=== PATIENT | female | born 1955 | race Caucasian/White ===

== ENCOUNTER 2019-07-02 10:03 | Outpatient (CLI) | payer OTHER, MEDICARE, SELFPAY ==
--- NOTE | ~2019-07-02 | MM_ITS ---
EXAMINATION: MM screening [facility] BI w nikki HISTORY: Screening mammogram TECHNIQUE: Craniocaudal and mediolateral oblique 3-D tomosynthesis images were obtained and synthetic 2-D images were generated. CAD analysis was submitted and interpreted. COMPARISON: 02/21/2012 BREAST PARENCHYMAL COMPOSITION: There are scattered areas of fibroglandular density. FINDINGS: There is no evidence of suspicious mass, calcification, or architectural distortion to sugg est malignancy in either breast. There has been no suspicious interval change. IMPRESSION: 1. No mammographic evidence of malignancy. 2. Recommend routine screening mammography in one year. BI-RADS Category 1: Negative Reviewed, dictated and finalized at location A.
[2019-07-02 10:37] LABS: Creatinine Urine 200.07 mg/dL (40-278)
[2019-07-02 10:38] LABS: MALB Creatinine Ratio 14.7 mg/g (0-30); Microalbumin Urine Random 29.6 mg/L
[2019-07-02 10:39] LABS: Hemoglobin A1C 5.5 % (<5.7)
[2019-07-02 10:50] LABS: Alanine Aminotransferase 20 U/L (14-59); Alkaline Phosphatase 173 U/L (46-116); Anion Gap 16.4 mmol/L (7-16); Aspartate Amino Transferase 19 U/L (15-37); Bilirubin,Total 0.5 mg/dL (0.00-1.00); Blood Urea Nitrogen 11 mg/dL (7-18); Calcium 9.5 mg/dL (8.5-10.1); Carbon Dioxide 28 mmol/L (21-32); Chloride 103 mmol/L (98-108); Cholesterol 209 mg/dL (0-200); Estimated Glomerular Filt Rate > 60; Glucose 123 mg/dL (70-99); HDL Direct 56 mg/dL (40-60); LDL Cholesterol Calculated 121 mg/dL (<130); Osmolality Calculated 296 mOsm/kg (285-295); Potassium 4.4 mmol/L (3.5-5.1); Sodium 143 mmol/L (136-145); Total Protein 7.3 g/dL (6.4-8.2); Triglycerides 161 mg/dL (0-150)
[2019-07-04 18:13] LABS: H pylori, Urea Breath NOT DETECTED (NOT DETECTED)
== END 2019-07-02 10:04 | disposition home or self-care (01) ==
PROVIDERS: PCP Family Medicine; Visit Provider Family Medicine
DX: Z12.31 Encounter for screening mammogram for malignant neoplasm of breast (principal); R10.12 Left upper quadrant pain; E11.9 Type 2 diabetes mellitus without complications
CPT/HCPCS: 36415; 77063; 77067; 80053; 80061; 82043; 83013; 83036

== ENCOUNTER 2020-01-01 12:07 | Outpatient (CLI) | payer MEDICARE, SELFPAY ==
--- NOTE | ~2020-01-01 | XR_ITS ---
EXAMINATION: XR thoracic spine 3V EXAM DATE: 01/01/2020 12:36 INDICATION: Back pain. TECHNIQUE: Frontal and lateral projections of the thoracic spine as well as lateral swimmers projecti on of the upper thoracic spine for interpretation. There is no prior study for comparison. FINDINGS: Right lower lobe granuloma. There are 2 thoracic spine stimulator leads, one with tip at the T8-9 level and the other with the tip at the T6 level. Cholecystectomy clips. There is minimal lo wer thoracic levocurvature. There is mild to moderate disc disease at T10-11, otherwise mild lower th oracic disc disease. The vertebral bodies are aligned in the AP dimension. Vertebral body heights are maintained. No endplate erosive change. Paraspinal soft tissue is unremarkable. IMPRESSION: 1. Spine stimulator leads at T6, T8-9 levels. 2. Moderate T10-11 disc disease. 3. Otherwise mild thoracic spondylosis. Reviewed, dictated and finalized at location A.
== END 2020-01-01 12:08 | disposition home or self-care (01) ==
PROVIDERS: PCP Family Medicine
DX: M54.6 Pain in thoracic spine (principal)
CPT/HCPCS: 72072

== ENCOUNTER 2021-01-19 13:58 | Outpatient (CLI) | payer OTHER, SELFPAY ==
[2021-01-19 14:15] LABS: Hematocrit 44.4 % (35.0-42.0); Hemoglobin 14.7 g/dL (11.7-13.8); Mean Corpuscular HGB Conc 33.1 g/dL (32.0-36.0); Mean Corpuscular Hemoglobin 28.1 pg (27.0-31.0); Mean Corpuscular Volume 84.9 fL (78.0-102.0); Mean Platelet Volume 10.2 fl (9.2-11.8); Platelet Count Result 305 K/mm3 (150-420); Red Blood Count 5.23 M/mm3 (4.20-5.40); Red Cell Distribution Width 12.3 % (11.6-14.4); White Blood Count 8.3 K/mm3 (4.8-10.8)
[2021-01-19 14:25] LABS: Hemoglobin A1C 5.1 % (<5.7)
[2021-01-19 15:08] LABS: Alanine Aminotransferase 28 U/L (14-59); Albumin Level 3.7 g/dL (3.4-5.0); Alkaline Phosphatase 129 U/L (46-116); Anion Gap 8 mmol/L (8-16); Aspartate Amino Transferase 24 U/L (15-37); Bilirubin,Total 0.4 mg/dL (0.00-1.00); Blood Urea Nitrogen 14 mg/dL (7-18); Calcium 9.5 mg/dL (8.5-10.1); Carbon Dioxide 30 mmol/L (21-32); Chloride 104 mmol/L (98-108); Cholesterol 129 mg/dL (0-200); Estimated Glomerular Filt Rate > 60; Glucose 76 mg/dL (70-99); HDL Direct 53 mg/dL (40-60); LDL Cholesterol Calculated 59 mg/dL (<130); Osmolality Calculated 293 mOsm/kg (285-295); Potassium 4.9 mmol/L (3.5-5.1); Sodium 142 mmol/L (136-145); Total Protein 6.5 g/dL (6.4-8.2); Triglycerides 85 mg/dL (0-150)
[2021-01-19 16:12] LABS: Free T4 Free Thyroxine Reflex < 0.10 ng/dL (0.76-1.46); Thyroid Stimulating Hormone Reflex < 0.01 u/IU/mL (0.36-3.74)
== END 2021-01-19 13:59 | disposition home or self-care (01) ==
LOC: CHSLAB 14:01
PROVIDERS: PCP Family Medicine; Visit Provider Family Medicine
DX: I10 Essential (primary) hypertension (principal); E11.9 Type 2 diabetes mellitus without complications; E03.9 Hypothyroidism, unspecified
CPT/HCPCS: 36415; 80053; 80061; 83036; 84439; 84443; 85027

== ENCOUNTER 2021-01-24 14:58 | Outpatient (CLI) | payer OTHER, MEDICARE, SELFPAY ==
--- NOTE | ~2021-01-24 | MM_ITS ---
EXAMINATION: MM screening [facility] BI w nikki HISTORY: Screening TECHNIQUE: Craniocaudal and mediolateral oblique 3-D tomosynthesis images were obtained and synthetic 2-D images were generated. CAD analysis was submitted and interpreted. COMPARISON: Comparison to multiple prior studies sequentially, with oldest reviewed study dated 10/2011. BREAST PARENCHYMAL COMPOSITION: There are scattered areas of fibroglandular density. FINDINGS: There is no evidence of suspicious mass, calcification, or architectural distortion to sugg est malignancy in either breast. There has been no suspicious interval change. IMPRESSION: 1. No mammographic evidence of malignancy. 2. Recommend routine screening mammography in one year. BI-RADS Category 1: Negative Reviewed, dictated and finalized at location A.
== END 2021-01-24 14:59 | disposition home or self-care (01) ==
LOC: CHSIMG 14:59
PROVIDERS: PCP Family Medicine; Visit Provider Family Medicine
DX: Z12.31 Encounter for screening mammogram for malignant neoplasm of breast (principal)
CPT/HCPCS: 77063; 77067

== ENCOUNTER 2021-02-07 14:29 | Outpatient (CLI) | payer OTHER, SELFPAY ==
[2021-02-07 16:21] LABS: Thyroid Stimulating Hormone Reflex < 0.01 u/IU/mL (0.36-3.74)
[2021-02-07 16:51] LABS: Free T4 Free Thyroxine Reflex 0.09 ng/dL (0.76-1.46)
[2021-02-15 20:50] LABS: T4 Thyroxine <0.7 mcg/dL (5.1-11.9)
== END 2021-02-07 14:30 | disposition home or self-care (01) ==
LOC: CHSLAB 14:32
PROVIDERS: PCP Family Medicine; Visit Provider Family Medicine
DX: E03.9 Hypothyroidism, unspecified (principal); E11.9 Type 2 diabetes mellitus without complications
CPT/HCPCS: 36415; 84436; 84439; 84443; 84480

== ENCOUNTER 2021-02-12 07:13 | Outpatient (CLI) | payer OTHER, MEDICARE, SELFPAY | END 2021-02-12 07:14 | disposition home or self-care (01) | LOC: CHSIMG 07:14 | PROVIDERS: PCP Family Medicine; Visit Provider Family Medicine | DX: G20 Parkinson's disease (principal); Z53.8 Procedure and treatment not carried out for other reasons | CPT/HCPCS: 99199 ==

== ENCOUNTER 2021-03-30 12:28 | Outpatient (CLI) | payer OTHER, SELFPAY ==
--- NOTE | 2021-03-30 12:31 | ECG_ITS ---
Measurements Intervals [place] Rate: 100 P: 79 LA: 134 QRS: 72 QRSD: 82 T: 51 QT: 311 QTc: 402 Interpretive Statements SINUS TACHYCARDIA VENTRICULAR PREMATURE COMPLEX BASELINE WANDER- II, III, AVR, AVL, AVF, V1-V4 BORDERLINE ECG Electronically Signed On 03-30-2021 13:23:34 [employer] by Vishnu Draper D.O.
[2021-03-30 13:02] LABS: Alanine Aminotransferase 40 U/L (14-59); Albumin Level 3.8 g/dL (3.4-5.0); Alkaline Phosphatase 142 U/L (46-116); Anion Gap 13 mmol/L (8-16); Aspartate Amino Transferase 30 U/L (15-37); Bilirubin,Total 0.8 mg/dL (0.00-1.00); Blood Urea Nitrogen 7 mg/dL (7-18); Calcium 10.2 mg/dL (8.5-10.1); Carbon Dioxide 27 mmol/L (21-32); Chloride 106 mmol/L (98-108); Estimated Glomerular Filt Rate 53; Glucose 133 mg/dL (70-99); Osmolality Calculated 302 mOsm/kg (285-295); Potassium 3.9 mmol/L (3.5-5.1); Sodium 146 mmol/L (136-145); Total Protein 7.3 g/dL (6.4-8.2); Troponin I 15.7 ng/L (0.00-60.4)
== END 2021-03-30 12:29 | disposition home or self-care (01) ==
LOC: CHSLAB 12:31
PROVIDERS: PCP Family Medicine; Visit Provider Family Medicine
DX: I10 Essential (primary) hypertension (principal)
CPT/HCPCS: 36415; 80053; 84484; 93005

== ENCOUNTER 2021-05-30 15:06 | Outpatient (CLI) | payer OTHER, SELFPAY ==
[2021-05-30 16:53] LABS: Thyroid Stimulating Hormone Reflex < 0.01 u/IU/mL (0.36-3.74)
[2021-05-30 16:57] LABS: Free T4 Free Thyroxine Reflex 0.11 ng/dL (0.76-1.46)
== END 2021-05-30 15:07 | disposition home or self-care (01) ==
LOC: CHSLAB 15:08
PROVIDERS: PCP Family Medicine; Visit Provider Family Medicine
DX: E11.9 Type 2 diabetes mellitus without complications (principal); E03.9 Hypothyroidism, unspecified
CPT/HCPCS: 36415; 84439; 84443

== ENCOUNTER 2021-09-19 12:43 | Outpatient (CLI) | payer OTHER, MEDICAID, SELFPAY ==
--- NOTE | 2021-09-19 13:04 | ECG_ITS ---
Measurements Intervals [place] Rate: 71 P: 61 SC: 153 QRS: 46 QRSD: 85 T: 52 QT: 377 QTc: 412 Interpretive Statements SINUS RHYTHM Electronically Signed On 09-20-2021 11:09:13 CDT by Kj Beltrán M.D.
[2021-09-19 13:05] LABS: Hematocrit 41.2 % (35.0-42.0); Hemoglobin 13.6 g/dL (11.7-13.8); Mean Corpuscular Hemoglobin 27.8 pg (27.0-31.0); Mean Corpuscular Volume 84.1 fL (78.0-102.0); Mean Platelet Volume 10.2 fl (9.2-11.8); Platelet Count Result 268 K/mm3 (150-420); Red Cell Distribution Width 13.1 % (11.6-14.4); White Blood Count 6.8 K/mm3 (4.8-10.8)
[2021-09-19 13:22] LABS: Hemoglobin A1C 5.5 % (<5.7)
[2021-09-19 13:35] LABS: Alanine Aminotransferase 23 U/L (14-59); Albumin Level 3.4 g/dL (3.4-5.0); Alkaline Phosphatase 169 U/L (46-116); Anion Gap 9 mmol/L (8-16); Aspartate Amino Transferase 17 U/L (15-37); Bilirubin,Total 0.8 mg/dL (0.00-1.00); Blood Urea Nitrogen 10 mg/dL (7-18); Calcium 9.6 mg/dL (8.5-10.1); Carbon Dioxide 23 mmol/L (21-32); Chloride 106 mmol/L (98-108); Estimated Glomerular Filt Rate > 60; Glucose 103 mg/dL (70-99); Osmolality Calculated 285 mOsm/kg (285-295); Potassium 3.9 mmol/L (3.5-5.1); Sodium 138 mmol/L (136-145); Total Protein 6.9 g/dL (6.4-8.2)
[2021-09-19 13:37] LABS: Thyroid Stimulating Hormone Reflex < 0.01 u/IU/mL (0.36-3.74)
== END 2021-09-19 12:44 | disposition home or self-care (01) ==
LOC: CHSLAB 12:49
PROVIDERS: PCP Family Medicine; Visit Provider Family Medicine
DX: J44.9 Chronic obstructive pulmonary disease, unspecified (principal); E11.9 Type 2 diabetes mellitus without complications; E03.9 Hypothyroidism, unspecified
CPT/HCPCS: 36415; 80053; 83036; 84439; 84443; 85027; 93005

== ENCOUNTER 2021-10-24 11:21 | Outpatient (CLI) | payer OTHER, MEDICAID, SELFPAY ==
[2021-10-24 11:39] LABS: Hematocrit 42.2 % (35.0-42.0); Mean Corpuscular HGB Conc 33.2 g/dL (32.0-36.0); Mean Corpuscular Hemoglobin 27.7 pg (27.0-31.0); Mean Corpuscular Volume 83.6 fL (78.0-102.0); Mean Platelet Volume 11.7 fl (9.2-11.8); Platelet Count Result 152 K/mm3 (150-420); Red Blood Count 5.05 M/mm3 (4.20-5.40); Red Cell Distribution Width 13.1 % (11.6-14.4); White Blood Count 7.7 K/mm3 (4.8-10.8)
[2021-10-24 12:03] LABS: Alanine Aminotransferase 34 U/L (14-59); Albumin Level 3.4 g/dL (3.4-5.0); Alkaline Phosphatase 159 U/L (46-116); Anion Gap 8 mmol/L (8-16); Aspartate Amino Transferase 25 U/L (15-37); Bilirubin,Total 0.5 mg/dL (0.00-1.00); Blood Urea Nitrogen 10 mg/dL (7-18); Calcium 9.2 mg/dL (8.5-10.1); Carbon Dioxide 26 mmol/L (21-32); Chloride 106 mmol/L (98-108); Estimated Glomerular Filt Rate > 60; Glucose 97 mg/dL (70-99); Osmolality Calculated 289 mOsm/kg (285-295); Sodium 140 mmol/L (136-145); Total Protein 6.8 g/dL (6.4-8.2)
[2021-10-24 13:10] LABS: Free T4 Free Thyroxine Reflex 1.97 ng/dL (0.76-1.46); Thyroid Stimulating Hormone Reflex < 0.01 u/IU/mL (0.36-3.74)
[2021-10-26 15:56] LABS: T4 Thyroxine 14.9 mcg/dL (5.1-11.9)
== END 2021-10-24 11:22 | disposition home or self-care (01) ==
LOC: CHSLAB 11:24
PROVIDERS: PCP Family Medicine; Visit Provider Family Medicine
DX: E03.9 Hypothyroidism, unspecified (principal); I10 Essential (primary) hypertension; E11.9 Type 2 diabetes mellitus without complications
CPT/HCPCS: 36415; 80053; 84436; 84439; 84443; 85027

== ENCOUNTER 2021-10-30 19:03 | Emergency (ER) | payer MEDICARE, MEDICAID, SELFPAY ==
[2021-10-30 19:23] VITALS: BP 142/72; PULSE 85; RESP 18; TEMP 36.5; O2SAT 97
--- NOTE | 2021-10-30 19:49 | ED.GENADULT ---
HPI - General Adult General Chief complaint: Extremity Injury, Upper Stated complaint: cat scratch History of Present Illness HPI narrative: This is a pleasant 65-year-old female presenting to the ED after being scratched by a feral cat. Patient has been feeding to stray cats in her backyard. While she was feeding more the cats today it became on edge and started his seen at the other cat. She tried to shoo the other cat away and jumped on her scratching her arm. The cat did not bite her. The patient has noted today that she is having some very mild erythema around the scratch site. She wants a tetanus shot. She also was concerned about cat scratch fever. Related Data Allergies Allergy/AdvReac Type Severity Reaction Status Date / Time No Known Allergies Allergy Verified 10/30/21 19:39 Review of Systems Constitutional: Constitutional: Denies chills Eyes: Eyes: Denies no additional eye complaints ENT: Denies dysphagia Cardiovascular: Cardiovascular: Denies chest pain Respiratory: Respiratory: Denies chest congestion Gastrointestinal: Gastrointestinal: Denies abdominal pain Genitourinary: Genitourinary: Denies abnormal vaginal bleeding Musculoskeletal: Musculoskeletal: Denies back pain Integumentary/Breasts: Skin/Breast: Denies rash Neurologic: Denies confusion Psychiatric: Psychiatric: Denies anxiety Endocrine: Endocrine: Denies excessive sweating Hematologic/Lymphatic: Hematologic/Lymphatic: Denies easy bleeding Allergic/Immunologic: Allergic/Immunologic: Denies lip swelling PMFSH Past Medical History Medical History Abnormal involuntary movements Acquired scoliosis Back pain with history of spinal surgery Chronic low back pain with bilateral sciatica Chronic pain syndrome COPD (chronic obstructive pulmonary disease) Diffuse arthralgia Esophageal reflux disease Generalized anxiety disorder Hypertension 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 patient has generalized after athetosis Const: General: healthy appearing and no acute distress Nutritional Appearance: well nourished Orientation/consciousness: patient oriented x3 HENMT: Head: normal to inspection Ears: external ears normal General nose exam: Normal external nose present Face and sinus: normal facial exam Mouth: Yes Normal oral and palatal mucosa present Eyes: Conjunctivae: conjunctivae normal Neck: Neck: normal visual inspection Chest: Chest palpation & inspection: normal inspection of the chest Resp: Effort & Inspection: normal respiratory effort Cardio: Rate: regular rate Rhythm: regular rhythm GI: GI Palp: Yes Soft to palpation, No Tenderness to palpation present (GI) and No Guarding due to palpation present (GI) Back/Spine/Pelvis: Back: no CVA tenderness Skin: Wounds: wounds noted ( 2 cm shallow scratch or the right thenar eminence. ) Other: Multiple superficial scratches to the left forearm. Mild erythema and swelling. Neuro: General: patient oriented x3 Extrem: Other: Scratches to the left hand and forearm as documented above. Course Vital Signs Vital signs: Vital Signs Temperature 97.7 F 10/30/21 19:23 Pulse Rate 85 10/30/21 19:23 Respiratory Rate 18 10/30/21 19:23 Blood Pressure 142/72 H 10/30/21 19:23 Pulse Oximetry 97 10/30/21 19
[2021-10-30] MEDS: CEPHALEXIN 500 MG CAPSULE PO (20:15)
[2021-10-30] MEDS: TETANUS,DIPHTHERIA,AC PERTUSSIS ADULT 0.5 ML (ADACEL) IM (20:16)
== END 2021-10-30 20:35 | disposition home or self-care (01) ==
PROVIDERS: Emergency Provider Emergency Medicine; PCP Family Medicine
DX: S40.812A Abrasion of left upper arm, initial encounter (principal); W55.03XA Scratched by cat, initial encounter; J44.9 Chronic obstructive pulmonary disease, unspecified; K21.9 Gastro-esophageal reflux disease without esophagitis; F41.9 Anxiety disorder, unspecified; I10 Essential (primary) hypertension; E03.9 Hypothyroidism, unspecified; E11.9 Type 2 diabetes mellitus without complications; Z87.891 Personal history of nicotine dependence
CPT/HCPCS: 90471; 90715; 99283; A9270

== ENCOUNTER 2021-12-02 10:33 | Outpatient (CLI) | payer MEDICARE, MEDICAID, SELFPAY ==
--- NOTE | ~2021-12-02 | XR_ITS ---
EXAMINATION: XR chest 2V 12/02/2021 11:05 INDICATION: Preop. Hypertension. COPD. PROCEDURE: 2 view chest COMPARISON: 11/15/2017 FINDINGS: The lungs are clear. The cardiomediastinal silhouette is within normal limits. There are no pleural effusions. There is no pneumothorax suspected. There are spinal stimulator leads at the midthoracic level. IMPRESSION: 1: NO ACUTE CARDIOPULMONARY DISEASE. Reviewed, dictated and finalized at location B.
[2021-12-02 10:52] LABS: Hematocrit 42.4 % (35.0-42.0); Mean Corpuscular Hemoglobin 27.8 pg (27.0-31.0); Mean Corpuscular Volume 84.3 fL (78.0-102.0); Mean Platelet Volume 9.4 fl (9.2-11.8); Platelet Count Result 327 K/mm3 (150-420); Red Blood Count 5.03 M/mm3 (4.20-5.40); Red Cell Distribution Width 13.6 % (11.6-14.4); White Blood Count 7.9 K/mm3 (4.8-10.8)
[2021-12-02 10:57] LABS: Add Urine Microscopic? NO; Appearance Urine Clear (Clear); Bilirubin Urine Negative (Negative); Blood Urine Negative (Negative); Color Urine Yellow (Yellow); Glucose Urine UA Negative (Negative); Ketones Urine Negative (Negative); Leukocyte Esterase Ur Negative (Negative); Nitrate Urine Negative (Negative); Protein Urine Negative (Negative); Urobilinogen Urine 0.2 mg/dL (0.2-1.0)
[2021-12-02 11:12] LABS: Hemoglobin A1C 5.3 % (<5.7)
[2021-12-02 11:19] LABS: Alanine Aminotransferase 25 U/L (14-59); Albumin Level 3.8 g/dL (3.4-5.0); Alkaline Phosphatase 163 U/L (46-116); Anion Gap 9 mmol/L (8-16); Aspartate Amino Transferase 25 U/L (15-37); Bilirubin,Total 0.7 mg/dL (0.00-1.00); Blood Urea Nitrogen 11 mg/dL (7-18); Calcium 9.1 mg/dL (8.5-10.1); Carbon Dioxide 27 mmol/L (21-32); Chloride 103 mmol/L (98-108); Estimated Glomerular Filt Rate 57; Glucose 92 mg/dL (70-99); Osmolality Calculated 287 mOsm/kg (285-295); Potassium 4.3 mmol/L (3.5-5.1); Sodium 139 mmol/L (136-145); Total Protein 6.9 g/dL (6.4-8.2)
[2021-12-02 11:21] LABS: Thyroid Stimulating Hormone Reflex 0.49 u/IU/mL (0.36-3.74)
== END 2021-12-02 10:34 | disposition home or self-care (01) ==
LOC: CHSLAB 10:39
PROVIDERS: PCP Family Medicine; Visit Provider Family Medicine
DX: Z95.828 Presence of other vascular implants and grafts (principal); I10 Essential (primary) hypertension; E03.9 Hypothyroidism, unspecified; E11.9 Type 2 diabetes mellitus without complications
CPT/HCPCS: 36415; 71046; 80053; 81003; 83036; 84439; 84443; 85027

== ENCOUNTER 2022-02-03 13:00 | Outpatient (CLI) | payer MEDICARE, MEDICAID, SELFPAY ==
--- NOTE | ~2022-02-03 | MM_ITS ---
EXAMINATION: MM screening [facility] BI w nikki HISTORY: Screening TECHNIQUE: Craniocaudal and mediolateral oblique 3-D tomosynthesis images were obtained and synthetic 2-D images were generated. CAD analysis was submitted and interpreted. COMPARISON: Comparison to multiple prior studies sequentially, with oldest reviewed study dated 10/2011. BREAST PARENCHYMAL COMPOSITION: There are scattered areas of fibroglandular density. FINDINGS: There is no evidence of suspicious mass, calcification, or architectural distortion to sugg est malignancy in either breast. There has been no suspicious interval change. IMPRESSION: 1. No mammographic evidence of malignancy. 2. Recommend routine screening mammography in one year. BI-RADS Category 1: Negative Reviewed, dictated and finalized at location A.
[2022-02-03 13:51] LABS: Free T3 2.54 pg/mL (2.18-3.98); Free T4 Free Thyroxine 0.89 ng/dL (0.76-1.46); Thyroid Stimulating Hormone 2.11 uIU/mL (0.36-3.74)
[2022-02-07 02:47] LABS: Thyroid Peroxidase Antibodies 226 IU/mL (<9)
== END 2022-02-03 13:01 | disposition home or self-care (01) ==
LOC: CHSIMG 13:04
PROVIDERS: PCP Family Medicine; Visit Provider Internal Medicine Endocrinology, Diabetes & Metabolism
DX: E03.9 Hypothyroidism, unspecified (principal); E11.9 Type 2 diabetes mellitus without complications; E04.9 Nontoxic goiter, unspecified; Z12.31 Encounter for screening mammogram for malignant neoplasm of breast
CPT/HCPCS: 36415; 77063; 77067; 84439; 84443; 84481; 86376

== ENCOUNTER 2022-03-16 14:15 | Outpatient (CLI) | payer MEDICARE, MEDICAID, SELFPAY ==
--- NOTE | ~2022-03-16 | XR_ITS ---
XR knee LT 3V 03/16/2022 14:35 INDICATION: Left knee pain PROCEDURE: 3 views left knee COMPARISON: 04/19/2010 FINDINGS: Fracture, dislocation or subluxation is not identified. No significant joint effusion. The soft tissues appear within normal limits. No foreign bodies are identified. There is mild tricompart ment osteoarthritis. IMPRESSION: 1: Mild tricompartment osteoarthritis of the left knee. Reviewed, dictated and finalized at location A. 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
== END 2022-03-16 14:16 | disposition home or self-care (01) ==
LOC: CHSIMG 14:18
PROVIDERS: PCP Family Medicine; Visit Provider Family Medicine
DX: M25.562 Pain in left knee (principal)
CPT/HCPCS: 73562

== ENCOUNTER 2022-07-25 09:52 | Outpatient (CLI) | payer MEDICARE, MEDICAID, SELFPAY ==
[2022-07-25 10:07] LABS: Hematocrit 43.7 % (35.0-42.0); Mean Corpuscular Hemoglobin 28.3 pg (27.0-31.0); Mean Corpuscular Volume 88.5 fL (78.0-102.0); Mean Platelet Volume 9.3 fl (9.2-11.8); Platelet Count Result 327 K/mm3 (150-420); Red Blood Count 4.94 M/mm3 (4.20-5.40); Red Cell Distribution Width 12.9 % (11.6-14.4); White Blood Count 8.1 K/mm3 (4.8-10.8)
[2022-07-25 10:31] LABS: Hemoglobin A1C 5.3 % (<5.7)
[2022-07-25 11:08] LABS: Alanine Aminotransferase 25 U/L (14-59); Albumin Level 3.9 g/dL (3.4-5.0); Alkaline Phosphatase 113 U/L (46-116); Anion Gap 10 mmol/L (8-16); Aspartate Amino Transferase 32 U/L (15-37); Bilirubin,Total 0.3 mg/dL (0.00-1.00); Blood Urea Nitrogen 12 mg/dL (7-18); Calcium 9.5 mg/dL (8.5-10.1); Carbon Dioxide 28 mmol/L (21-32); Chloride 104 mmol/L (98-108); Estimated Glomerular Filt Rate 59; Glucose 96 mg/dL (70-99); Osmolality Calculated 293 mOsm/kg (285-295); Potassium 4.7 mmol/L (3.5-5.1); Sodium 142 mmol/L (136-145); Total Protein 7.2 g/dL (6.4-8.2)
[2022-07-25 11:10] LABS: Free T4 Free Thyroxine Reflex 0.94 ng/dL (0.76-1.46); Thyroid Stimulating Hormone Reflex 5.64 u/IU/mL (0.36-3.74)
== END 2022-07-25 09:53 | disposition home or self-care (01) ==
LOC: CHSLAB 09:55
PROVIDERS: PCP Family Medicine; Visit Provider Family Medicine
DX: Z01.818 Encounter for other preprocedural examination (principal); E03.9 Hypothyroidism, unspecified; E11.9 Type 2 diabetes mellitus without complications
CPT/HCPCS: 36415; 80053; 83036; 84439; 84443; 85027

== ENCOUNTER 2022-09-11 13:32 | Emergency (ER) | payer MEDICARE, MEDICAID, SELFPAY ==
--- NOTE | ~2022-09-11 | XR_ITS ---
EXAMINATION: XR hip LT 2V w AP pelvis DATE: 09/11/2022 14:24 INDICATION: Left hip pain. TECHNIQUE: An anteroposterior view of the pelvis and 2 views of left hip were obtained. COMPARISON: Left hip radiographs 10/28/2018, CT abdomen and pelvis 10/07/2013 FINDINGS: There is lumbar dextroscoliosis and severe spondylosis. No fracture. There is a chronic scl erotic lesion of left iliac wing, which may be an old healed fracture or melorheostosis. There is sev ere osteoarthritis of the hips. Surgical clips overlie the pelvis. An electronic device in pump overl ies the abdomen. IMPRESSION: 1. Severe osteoarthritis of the hips. Reviewed, dictated and finalized at location A.
[2022-09-11 13:34] VITALS: BP 142/71; PULSE 90; RESP 20; TEMP 36.4; O2SAT 96
[2022-09-11 13:41] VITALS: BP 142/71; PULSE 90; RESP 20; TEMP 36.4; O2SAT 96
--- NOTE | 2022-09-11 14:27 | ED.GENADULT ---
HPI - General Adult General Chief complaint: Extremity Injury, Lower Stated complaint: L hip pain Time Seen by Provider: 09/11/22 13:55 History of Present Illness HPI narrative: Donna is a 66F with a PMH of polyarthritis, movement disorder, HTN, chronic low back pain, GERD, NAY, Hypothyroidism, and DMII that presented to the ED with worsening left hip pain for the last 4 days. It hurts on the lateral side of her left hip and in her left groin. There was no trauma or fall. There are no fevers, chills, N/V, CP or dyspnea. Related Data Home Medications Medication Instructions Recorded Confirmed calcium carbonate 600 mg calcium 600 mg PO DAILY 12/26/21 09/11/22 (1,500 mg) tablet (Calcium) cholecalciferol (vitamin D3) 25 25 mcg PO DAILY 12/26/21 09/11/22 mcg (1,000 unit) capsule coconut oil 1,000 mg capsule 3,000 mg PO DAILY 12/26/21 09/11/22 glucosamine 750 [id number]-ihf 1 tablet PO BID 12/26/21 09/11/22 no1 644 mg-C 30 mg-nelia 1 mg tablet (Osteo Bi-Flex Triple Strength) multivitamin (Daily Multi-Vitamin 1 tablet PO DAILY 12/26/21 09/11/22 tablet) omega 9-rql-bwr-fish oil 1,000 mg 1 cap PO DAILY 12/26/21 09/11/22 (120 mg-180 mg) capsule (Fish Oil) lisinopril 5 mg tablet 5 mg PO DAILY 09/11/22 09/11/22 meloxicam 15 mg tablet 15 mg PO DAILY 09/11/22 09/11/22 Allergies Allergy/AdvReac Type Severity Reaction Status Date / Time No Known Allergies Allergy Verified 09/11/22 13:40 Review of Systems Review of Systems: All systems reviewed & are unremarkable except as noted in HPI and below PMFSH Past Medical History Medical History Abnormal involuntary movements Acquired scoliosis Back pain with history of spinal surgery Chronic low back pain with bilateral sciatica Chronic pain syndrome COPD (chronic obstructive pulmonary disease) Diffuse arthralgia Esophageal reflux disease Generalized anxiety disorder Hypertension Hypothyroidism Left knee pain [facility] (current) use of opiate analgesic Major depression, recurrent Medial epicondylitis, right elbow Type 2 diabetes mellitus Surgical History Surgical History H/O colonoscopy H/O knee surgery History of back surgery Family History Family History Other Diabetes mellitus Social History Social History Smoking status: Former smoker Additional smoking assessment comments: Quit 1989 Alcohol intake: current Alcohol use details: Drinks on Sunday nights only Substance use: never Lack of Transportation: No Lack of Food: Never True Current Housing: I Have Housing Concerned About Future Housing: No Difficulty Paying Gas/Electric Bills: No Difficulty Paying for Meds: No Currently Unemployed: No Education: High School Diploma/GED Difficulty w/ Childcare or Family Care: No Exam Const: General: healthy appearing and no acute distress Nutritional Appearance: well nourished Orientation/consciousness: patient oriented x3 HENMT: Head: normal to inspection Ears: external ears normal Face/Nose/Sinus: Normal external nose present Eyes: Conjunctivae: conjunctivae normal Pupils: Equal, round and reactive pupils present EOM: EOMs intact bilaterally Neck: Neck: normal visual inspection Chest: Chest palpation & inspection: normal inspection of the chest Resp: Effort & Inspection: normal respiratory effort Auscultation: clear to auscultation bilaterally Cardio: Rate: regular rate Rhythm: regular rhythm GI: Inspection: non-distended Skin: General skin exam: normal color Rashes: no rashes Neuro: General: patient oriented x3 and moves all extremities Cranial nerves: Yes Nystagmus not present Extrem: General: normal to inspection Psych: Mental Status: mental status grossly normal Cour
[2022-09-11] MEDS: KETOROLAC 30 MG/ML VIAL (*BKC) IM (15:21)
[2022-09-11 15:36] VITALS: BP 138/70; PULSE 88; RESP 17; TEMP 36.6; O2SAT 97
== END 2022-09-11 15:38 | disposition home or self-care (01) ==
PROVIDERS: Emergency Provider Family Medicine; PCP Family Medicine
DX: M00.852 Arthritis due to other bacteria, left hip (principal); M00.851 Arthritis due to other bacteria, right hip; M25.552 Pain in left hip; I10 Essential (primary) hypertension; E03.9 Hypothyroidism, unspecified; E11.9 Type 2 diabetes mellitus without complications; M54.50 Low back pain, unspecified; G89.29 Other chronic pain; K21.9 Gastro-esophageal reflux disease without esophagitis; F41.1 Generalized anxiety disorder; Z87.891 Personal history of nicotine dependence; Z79.84 Long term (current) use of oral hypoglycemic drugs
CPT/HCPCS: 73502; 96372; 99283; J1885

== ENCOUNTER 2023-02-05 12:56 | Outpatient (CLI) | payer MEDICARE, MEDICAID, SELFPAY ==
--- NOTE | ~2023-02-05 | MM_ITS ---
EXAMINATION: MM screening uday BI w nikki HISTORY: Screening mammogram TECHNIQUE: Craniocaudal and mediolateral oblique 3-D tomosynthesis images were obtained and synthetic 2-D images were generated. CAD analysis was submitted and interpreted. COMPARISON: 02/03/2022, 01/24/2021, 07/02/2019 bilateral screening mammogram examinations BREAST PARENCHYMAL COMPOSITION: There are scattered areas of fibroglandular density. FINDINGS: There is no evidence of suspicious mass, calcification, or architectural distortion to sugg est malignancy in either breast. There has been no suspicious interval change. IMPRESSION: 1. No mammographic evidence of malignancy. 2. Recommend routine screening mammography in one year. BI-RADS Category 1: Negative Reviewed, dictated and finalized at location A.
== END 2023-02-05 12:57 | disposition home or self-care (01) ==
LOC: CHSIMG 12:57
PROVIDERS: PCP Family Medicine; Visit Provider Family Medicine
DX: Z12.31 Encounter for screening mammogram for malignant neoplasm of breast (principal)
CPT/HCPCS: 77063; 77067

== ENCOUNTER 2023-10-31 14:31 | Outpatient (CLI) | payer MEDICARE, MEDICAID, SELFPAY ==
[2023-10-31 14:48] LABS: Appearance Urine Cloudy (Clear); Bilirubin Urine 1+ (Negative); Blood Urine 3+ (Negative); Glucose Urine UA Trace (Negative); Ketones Urine 1+ (Negative); Leukocyte Esterase Ur 2+ LEU/UL (Negative); Nitrate Urine Negative (Negative); Protein Urine 2+ (Negative); Specific Grav Ur 1.025 (1.010-1.020)
[2023-10-31 14:57] LABS: Add Urine Microscopic? YES; Color Urine Dark Orange (Yellow); RBC Urine >75 /hpf (0-2); Squamous Epithelial Cell Urine Moderate /hpf (Few); WBC Urine >75 /hpf (0-3)
[2023-10-31 14:58] LABS: Bacteria Urine None seen /hpf; Mucus Urine Moderate /lpf; White Blood Cell Casts Urine Present /lpf
== END 2023-10-31 14:32 | disposition home or self-care (01) ==
LOC: CHSLAB 14:35
PROVIDERS: PCP Family Medicine; Visit Provider Nurse Practitioner Family
DX: R30.0 Dysuria (principal)
CPT/HCPCS: 81001; 87077; 87086; 87088; 87186

== ENCOUNTER 2024-01-03 11:58 | Outpatient (CLI) | payer MEDICARE, MEDICAID, SELFPAY ==
[2024-01-03 13:20] LABS: Hemoglobin A1C 5.1 % (<5.7)
[2024-01-03 13:50] LABS: Thyroid Stimulating Hormone Reflex 0.73 u/IU/mL (0.36-3.74)
== END 2024-01-03 11:59 | disposition home or self-care (01) ==
LOC: CHSLAB 12:00
PROVIDERS: PCP Family Medicine; Visit Provider Family Medicine
DX: E03.9 Hypothyroidism, unspecified (principal); E11.9 Type 2 diabetes mellitus without complications
CPT/HCPCS: 36415; 83036; 84443

== ENCOUNTER 2024-03-10 11:57 | Outpatient (CLI) | payer MEDICARE, MEDICAID, SELFPAY ==
[2024-03-10 12:08] LABS: Basophils Absolute Auto 0.05 K/mm3 (0.00-0.10); Basophils Percent Auto 0.6 % (0.0-1.0); Eosinophils Absolute Auto 0.13 K/mm3 (0.02-0.50); Eosinophils Percent Auto 1.5 % (1.0-6.0); Hematocrit 44.3 % (35.0-42.0); Hemoglobin 14.4 g/dL (11.7-13.8); Immature Granulocyte Absolute 0.03 K/mm3 (0.00-0.00); Immature Granulocyte Percent A 0.3 % (0.0-0.0); Lymphocytes Absolute Auto 2.21 K/mm3 (1.10-4.50); Mean Corpuscular HGB Conc 32.5 g/dL (32-36); Mean Corpuscular Hemoglobin 28.1 pg (27.0-31.0); Mean Corpuscular Volume 86.5 fL (78.0-102.0); Mean Platelet Volume 9.6 fl (9.2-11.8); Monocytes Absolute Auto 0.64 K/mm3 (0.10-0.90); Monocytes Percent Auto 7.2 % (2.0-11.0); Neutrophils Absolute Auto 5.79 K/mm3 (1.70-7.20); Neutrophils Percent Auto 65.4 % (50.0-70.0); Platelet Count Result 320 K/mm3 (150-420); Red Blood Count 5.12 M/mm3 (4.20-5.40); Red Cell Distribution Width 13.2 % (11.6-14.4); White Blood Count 8.9 K/mm3 (4.8-10.8)
[2024-03-10 12:26] LABS: Albumin Level 4.1 g/dL (3.4-5.0); Alkaline Phosphatase 100 U/L (46-116); Anion Gap 7 mmol/L (4-12); Aspartate Amino Transferase 26 U/L (15-37); Bilirubin,Total 0.5 mg/dL (0.00-1.00); Blood Urea Nitrogen 24 mg/dL (7-18); Calcium 10.2 mg/dL (8.5-10.1); Carbon Dioxide 31 mmol/L (21-32); Chloride 102 mmol/L (98-108); Estimated Glomerular Filt Rate 52; Glucose 79 mg/dL (70-99); Lipase 32 U/L (16-77); Osmolality Calculated 293 mOsm/kg (285-295); Potassium 4.6 mmol/L (3.5-5.1); Sodium 140 mmol/L (136-145); Total Protein 7.3 g/dL (6.4-8.2)
[2024-03-10 12:46] LABS: Alanine Aminotransferase 29 U/L (14-59)
[2024-03-10 13:15] LABS: CRP < 0.5 mg/dL (0.0-0.9)
== END 2024-03-10 11:58 | disposition home or self-care (01) ==
LOC: CHSLAB 11:58
PROVIDERS: PCP Family Medicine; Visit Provider Family Medicine
DX: I10 Essential (primary) hypertension (principal); R10.9 Unspecified abdominal pain
CPT/HCPCS: 36415; 80053; 83690; 85025; 86140

== ENCOUNTER 2024-04-17 02:17 | Day surgery (SDC) | payer MEDICARE, MEDICAID, SELFPAY ==
[2024-04-07 08:42] VITALS: BMI 24.5
[2024-04-17 09:13] VITALS: BP 107/68; PULSE 72; RESP 18; TEMP 36.1; O2SAT 100
--- NOTE | 2024-04-17 09:16 | P.HP_ITS ---
H&P: HPI History of Present Illness Date/Time: 04/17/24 09:16 Chief Complaint: GERD Narrative: this is a 68-year-old woman who presents for EGD. She has been experiencing epigastric pain and GERD symptoms. She denies any tobacco use or NSAID use. She occasionally drinks alcohol. She did have an EGD about 12 years ago. Review of Systems Review of Systems: All systems reviewed & are unremarkable except as noted in HPI and below Constitutional: Constitutional: Denies chills, Denies fever(s), Denies headache(s) and Denies weight loss Eyes: Eyes: Denies change in vision ENT: Denies dizziness, Denies headache(s), Denies neck mass and Denies throat swelling Cardiovascular: Cardiovascular: Denies chest pain, Denies lightheadedness and Denies dyspnea Respiratory: Respiratory: Denies cough, Denies dyspnea and Denies wheezing Gastrointestinal: Gastrointestinal: Denies abdominal pain, Denies change in bowel habits, Denies nausea and Denies vomiting Genitourinary: Genitourinary: Denies hematuria and Denies dysuria Musculoskeletal: Musculoskeletal: Reports as per HPI Integumentary/Breasts: Skin/Breast: Reports as per HPI Neurologic: Denies dizziness and Denies headache(s) Allergic/Immunologic: Allergic/Immunologic: Denies throat swelling and Denies wheezing PMF Past Medical History Medical History Abnormal involuntary movements Acquired scoliosis Back pain with history of spinal surgery Chronic low back pain with bilateral sciatica Chronic pain syndrome Diffuse arthralgia Esophageal reflux disease Generalized anxiety disorder Hypertension Hypothyroidism Left knee pain senior living (current) use of opiate 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 Major depression, recurrent Medial epicondylitis, right elbow Type 2 diabetes mellitus Surgical History Surgical History H/O colonoscopy H/O knee surgery History of back surgery Family History Family History Other Diabetes mellitus Social History Social History Smoking status: Former smoker Additional smoking assessment comments: 1989 Alcohol intake: current Alcohol use details: Drinks on Sunday only Substance use: never Lack of Transportation: No Lack of Food: Never True Current Housing: I Have Housing Concerned About Future Housing: No Difficulty Paying Gas/Electric Bills: No Difficulty Paying for Meds: No Currently Unemployed: No Education: High School Diploma/GED Difficulty w/ Childcare or Family Care: No Meds Home Medications and Allergies Home Medications ?Medication ?Instructions ?Recorded ?Confirmed ?Type blood sugar diagnostic (Blood #100 ea 01/10/21 03/10/24 Rx Glucose Test strips) blood-glucose meter #1 ea 01/10/21 03/10/24 Rx lancets (Fingerstix Lancets) #100 ea 01/10/21 03/10/24 Rx calcium carbonate (Calcium 600) 600 mg PO DAILY 12/26/21 04/17/24 History cholecalciferol (vitamin D3) 25 25 mcg PO DAILY 12/26/21 04/17/24 History mcg (1,000 unit) capsule coconut oil 1,000 mg capsule 3,000 mg PO DAILY 12/26/21 04/17/24 History glucosamine 750 tf-[id number]-xmu 1 tablet PO BID 12/26/21 04/17/24 History no1 644 mg-C 30 mg-nelia 1 mg tablet (Osteo Bi-Flex Triple Strength) multivitamin (Daily Multi-Vitamin 1 tablet PO DAILY 12/26/21 04/17/24 History tablet) omega 4-sjq-npb-fish oil 1,000 mg 1 cap PO DAILY 12/26/21 04/17/24 History (120 mg-180 mg) capsule (Fish Oil) meloxicam 15 mg tablet 15 mg PO DAILY 09/11/22 04/17/24 History cyclobenzaprine 5 mg tablet 5 mg PO TID PRN muscle spasm #45 03/22/23 04/07/24 Rx tabs triamcinolone acetonide 0.5 % 1 applic topical TID PRN rash #30 10/22/23 04/17/24 Rx topical cream grams semaglutide 1 mg/dose (4 mg/3 mL) 1 mg (0.75 mL) subcut WEEKLY #3 mL 12/25/23 04/07/24 Rx subcutaneous pen injector eszopiclone 3 mg tablet (Lunesta) 3 mg PO QHS 10 days #10 tabs 01/03/24 04/17/24 Rx metformin 500 mg tablet,extended See Rx Instructions .Route 02/11/24 04/17/24 Rx release 24 hr .COMPLEX #180 tabs amlodipine 10 mg tablet See Rx Instructions .Route 02/25/24 04/17/24 Rx .COMPLEX #90 tabs lisinopril 5 mg tablet See Rx Instructions .Route 02/25/24 04/17/24 Rx .COMPLEX #90 tabs pantoprazole 40 mg tablet,delayed See Rx Instructions .Route 02/25/24 04/17/24 Rx release .COMPLEX #42 tabs atorvastatin 40 mg tablet See Rx Instructions .Route 02/27/24 04/17/24 Rx .COMPLEX #90 tabs cyanocobalamin (vitamin B-12) See Rx Instructions .Route 02/27/24 04/07/24 Rx 1,000 mcg/mL injection solution .COMPLEX #10 mL famotidine 40 mg tablet 40 mg PO DAILY #90 tabs 03/10/24 04/17/24 Rx sucralfate 1 gram tablet (Carafate) 1 g PO TID #90 tabs 03/10/24 04/17/24 Rx levothyroxine 75 mcg tablet See Rx Instructions .Route 04/02/24 04/17/24 Rx .COMPLEX #90 tabs trazodone 100 mg tablet 100 mg PO QHS PRN insomnia #90 tabs 04/02/24 04/07/24 Rx ferrous sulfate 325 mg (65 mg 325 mg PO DAILY 04/07/24 04/17/24 History iron) tablet (iron) magnesium 250 mg tablet 250 mg PO DAILY 04/07/24 04/17/24 History vitamin E (dl, acetate) 180 mg 180 mg PO DAILY 04/07/24 04/17/24 History (400 unit) capsule Allergies Allergy/AdvReac Type Severity Reaction Status Date / Time pimozide Allergy Unknown Weakness Verified 04/17/24 09:10 Vital Signs Vital Signs - 24 hr 04/17/24 09:13 Temperature 97 F L Pulse Rate 72 Respiratory Rate 18 Blood Pressure 107/68 Pulse Oximetry 100 Oxygen Delivery Room Air Exam Const: General: no acute distress and alert Orientation/consciousness: patient oriented x3 HENMT: Head: normocephalic and atraumatic Ears: hearing grossly normal bilaterally Face/Nose/Sinus: Normal nares present Mouth: Yes Normal oral and palatal mucosa present Eyes: Periorbital: periorbital findings normal Sclera: sclerae normal EOM: EOMs intact bilaterally Neck: Neck: normal visual inspection, no lymphadenopathy and trachea midline Chest: Chest palpation & inspection: normal inspection of the chest Resp: Effort & Inspection: normal respiratory effort Auscultation: clear to auscultation bilaterally Cardio: Jugular venous distension: no JVD Rate: regular rate Rhythm: regular rhythm Heart sounds: S1 normal heart sound present and S2 normal heart sound present Peripheral pulses: Peripheral pulses 2+ throughout GI: Inspection: normal to inspection GI Palp: Yes Soft to palpation, No Tenderness to palpation present (GI), No Guarding due to palpation present (GI) and No Rebound tenderness present Percussion: Yes normal to percussion Auscultation: normal bowel sounds : General: Yes no CVA tenderness Back/Spine/Pelvis: Back: no CVA tenderness Neuro: General: patient oriented x3, no focal motor deficits and CN's II-XI intact bilaterally Cognition (Neuro): normal cognition Speech: normal speech Motor exam (neuro): 5/5 motor strength present throughout Extrem: General: capillary refill normal and no clubbing, cyanosis or edema Assessment and Plan Assessment and plan (1) Esophageal reflux disease: Code(s): K21.9 - Gastro-esophageal reflux disease without esophagitis Status: Acute Assessment and Plan: I have recommended EGD. I have discussed the procedure, risks, benefits, and alternatives. Questions were answered. Patient is agreeable to proceed.
[2024-04-17] MEDS: LACTATED RINGERS 1,000 ML 150 ML IV CONT (09:26)
--- NOTE | 2024-04-17 09:28 | P.PNAN_ITS ---
Anes - Initial Pre Proc Eval Procedure: Operation Date: 04/17/24 10:00 Proposed Procedures p Esophagogastroduodenoscopy - Ever Cooper DO Date/Time: 04/17/24 09:28 Surgeon: Ever Cooper DO Pre Op Diagnosis: GERD Patient Data Age: 68 Gender: F Height: 1.65 m Weight: 67.9 kg Last Vital Signs Temp 36.1 C L 04/17/24 09:13 Pulse 72 04/17/24 09:13 Resp 18 04/17/24 09:13 BP 107/68 04/17/24 09:13 Pulse Ox 100 04/17/24 09:13 O2 Del Method Room Air 04/17/24 09:13 Allergies Allergy/AdvReac Type Severity Reaction Status Date / Time pimozide Allergy Unknown Weakness Verified 04/17/24 09:10 Home Medications ?Medication ?Instructions ?Recorded ?Confirmed ?Type blood sugar diagnostic (Blood #100 ea 01/10/21 03/10/24 Rx Glucose Test strips) blood-glucose meter #1 ea 01/10/21 03/10/24 Rx lancets (Fingerstix Lancets) #100 ea 01/10/21 03/10/24 Rx calcium carbonate (Calcium 600) 600 mg PO DAILY 12/26/21 04/17/24 History cholecalciferol (vitamin D3) 25 25 mcg PO DAILY 12/26/21 04/17/24 History mcg (1,000 unit) capsule coconut oil 1,000 mg capsule 3,000 mg PO DAILY 12/26/21 04/17/24 History glucosamine 750 ue-zoitlvorouq-bcp 1 tablet PO BID 12/26/21 04/17/24 History no1 644 mg-C 30 mg-nelia 1 mg tablet (Osteo Bi-Flex Triple Strength) multivitamin (Daily Multi-Vitamin 1 tablet PO DAILY 12/26/21 04/17/24 History tablet) omega 3-rna-ehl-fish oil 1,000 mg 1 cap PO DAILY 12/26/21 04/17/24 History (120 mg-180 mg) capsule (Fish Oil) meloxicam 15 mg tablet 15 mg PO DAILY 09/11/22 04/17/24 History cyclobenzaprine 5 mg tablet 5 mg PO TID PRN muscle spasm #45 03/22/23 04/07/24 Rx tabs triamcinolone acetonide 0.5 % 1 applic topical TID PRN rash #30 10/22/23 04/17/24 Rx topical cream grams semaglutide 1 mg/dose (4 mg/3 mL) 1 mg (0.75 mL) subcut WEEKLY #3 mL 12/25/23 04/07/24 Rx subcutaneous pen injector eszopiclone 3 mg tablet (Lunesta) 3 mg PO QHS 10 days #10 tabs 01/03/24 04/17/24 Rx metformin 500 mg tablet,extended See Rx Instructions .Route 02/11/24 04/17/24 Rx release 24 hr .COMPLEX #180 tabs amlodipine 10 mg tablet See Rx Instructions .Route 02/25/24 04/17/24 Rx .COMPLEX #90 tabs lisinopril 5 mg tablet See Rx Instructions .Route 02/25/24 04/17/24 Rx .COMPLEX #90 tabs pantoprazole 40 mg tablet,delayed See Rx Instructions .Route 02/25/24 04/17/24 Rx release .COMPLEX #42 tabs atorvastatin 40 mg tablet See Rx Instructions .Route 02/27/24 04/17/24 Rx .COMPLEX #90 tabs cyanocobalamin (vitamin B-12) See Rx Instructions .Route 02/27/24 04/07/24 Rx 1,000 mcg/mL injection solution .COMPLEX #10 mL famotidine 40 mg tablet 40 mg PO DAILY #90 tabs 03/10/24 04/17/24 Rx sucralfate 1 gram tablet (Carafate) 1 g PO TID #90 tabs 03/10/24 04/17/24 Rx levothyroxine 75 mcg tablet See Rx Instructions .Route 04/02/24 04/17/24 Rx .COMPLEX #90 tabs trazodone 100 mg tablet 100 mg PO QHS PRN insomnia #90 tabs 04/02/24 04/07/24 Rx ferrous sulfate 325 mg (65 mg 325 mg PO DAILY 04/07/24 04/17/24 History iron) tablet (iron) magnesium 250 mg tablet 250 mg PO DAILY 04/07/24 04/17/24 History vitamin E (dl, acetate) 180 mg 180 mg PO DAILY 04/07/24 04/17/24 History (400 unit) capsule Patient hx anesthesia problems: none Family hx anesthesia problems: none Results Review: All pre-operative results and documents have been reviewed as part of the pre- operative evaluation. 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 Major depression, recurrent Back pain with history of spinal surgery Type 2 diabetes mellitus Hypothyroidism Generalized anxiety disorder Esophageal reflux disease Diffuse arthralgia Chronic low back pain with bilateral sciatica Acquired scoliosis Abnormal involuntary movements Surgical History Surgical History H/O colonoscopy History of back surgery H/O knee surgery Family History Family History Other Diabetes mellitus Social History Social History Smoking status: Former smoker Additional smoking assessment comments: Quit 1989 Alcohol intake: current Alcohol use details: Drinks on Sunday only Substance use: never Lack of Transportation: No Lack of Food: Never True Current Housing: I Have Housing Concerned About Future Housing: No Difficulty Paying Gas/Electric Bills: No Difficulty Paying for Meds: No Currently Unemployed: No Education: High School Diploma/GED Difficulty w/ Childcare or Family Care: No Anes - Eval Final PreProcedure Day of Procedure 04/17/24 09:28 Patient weight: normal Heart: regular rate and rhythm Lungs: clear to auscultation Airway: Mallampati scale class 1 Neurological: alert and oriented Last oral intake: >/= 8 hours ASA classification: III Emergent: no Anesthetic plan: proceed Anesthesia type and monitoring: general GIVS Results Review: All pre-operative results and documents have been reviewed as part of the pre- operative evaluation. Informed Consent: The patient's anesthetic plan and its attendant risks and benefits were discussed with the patient/family/POA. Questions were solicited and answers provided to the satisfaction of the patient/family/POA.
[2024-04-17 09:36] LABS: Glucose Point of Care 95 mg/dl (65-105)
[2024-04-17 09:42] VITALS: BP 103/45; PULSE 65; RESP 20; O2SAT 99
[2024-04-17 09:52] VITALS: BP 94/44; PULSE 65; RESP 16; O2SAT 96
[2024-04-17 10:02] VITALS: BP 102/74; PULSE 72; RESP 20; O2SAT 95
[2024-04-17 11:10] LABS: HPYLORIRESULT Negative (Negative)
--- OUTSIDE RECORDS SUMMARY | 2024-04-23 21:36 | XMS_ITS | Encounter Summary ---
Author Organization [facility] Address [address] [place] [address]. [place] [address] [place] [address] Care Team Providers Care Laborer Pipeline Name Role Phone Nnamdi Asif GANDARA Primary Care Provider [phone] Encounter Details Date Type Department Care Team (Latest Contact Info) Description 08/24/2023 Travel Social History Tobacco Use Types Packs/Day Years Used Date Smoking Tobacco: Former Cigarettes Smokeless Tobacco: Never Alcohol Use Standard Drinks/Week Comments Not Currently 0 (1 standard drink = 0.6 oz pur e alcohol) Occassionaly. [facility] Utilities Answer Date Recorded In the past 12 months has [employer], gas, oil, or water [employer] threatened to shut off services in your home? No 02/26/2023 Humiliation, Afraid, Rape, and Kick questionnair e Answer Date Recorded Within the last year, have y ou been afraid of your partner or ex-partner? No 02/26/2023 Within the last year, have y ou been humiliated or emotionally abused in other ways by your partner or ex-partner? No Within the last year, have y ou been kicked, hit, slapped, or otherwise physically hurt by your partner or ex-partner? No 02/26/2023 Within the last year, have y ou been raped or forced to have any kind of sexual activity by your partner or ex-partner? No 02/26/2023 Social Connection and Isolation Panel [NHANES] A nswer Date Recorded In a typical week, how many times do you talk on the phone with family, friends, or neighbors? Patient declined 02/26/2023 How often do you get togethe r with friends or relatives? Patient declined 02/26/2023 How often do you attend islam or latter-day serv ices? Patient declined 02/26/2023 Do you belong to any clubs o r organizations such as islam groups, unions, fraternal or athletic groups, or school groups? Patient declined 02/26/2023 How often do you attend meet ings of the clubs or organizations you belong to? Patient declined 02/26/2023 Are you , , di vorced, , never , or living with a partner? 02/26/2023 AUDIT-C Answer Date Recorded Q1: How often do you have a drink containing alcohol? Never 02/26/2023 Q2: How many drinks containi ng alcohol do you have on a typical day when you are drinking? Patient does not drink Q3: How often do you have si x or more drinks on one occasion? Never 02/26/2023 Overall Financial Resource Strain (CARDIA) Answe r Date Recorded How hard is it for you to pa y for the very basics like food, housing, medical care, and heating? Not hard at all 02/26/2023 PHQ-2 Answer Date Recorded Patient Health Questionnaire-2 Score 0 02/26/2023 [facility] - Occupational Stress Questionnaire Answer Date Recorded Do you feel stress - tense, restless, nervous, or anxious, or unable to sleep at night because your mind is troubled all the time - these days? Not at all 02/26/2023 Exercise Vital Sign Answer Date Recorde d On average, how many days pe r week do you engage in moderate to strenuous exercise (like a brisk walk)? 0 days 02/26/2023 On average, how many minutes do you engage in exercise at this level? 0 min 02/26/2023 Hunger Vital Sign Answer Date Recorded Within the past 12 months, y ou worried that your food would run out before you got the money to buy more. Never true 02/27/20 23 Within the past 12 months, t he food you bought just didn't last and you didn't have money to get more. Never true 02/26/2023 PRAPARE - Transportation Answer Date Re corded In the past 12 months, has l ack of transportation kept you from medical appointments or from getting medications? No 02/14 In the past 12 months, has l ack of transportation kept you from meetings, work, or from getting things needed for daily living? No 02/26/2023 Housing Stability Vital Sign Answer Refugio e Recorded In the last 12 months, was t here a time when you were not able to pay the mortgage or rent on time? No 02/26/2023 In the last 12 months, how many places have you lived? 1 02/26/2023 In the last 12 months, was t here a time when you did not have a steady place to sleep or slept in a senior care (including now)? No 02/26/2023 Comments No Sex and Gender Information Value Date Recorded Sex Assigned at Female 08/07/2022 4:17 PM CDT Legal Sex Female 8:54 PM CDT Gender Identity Female 08/07/2022 4:17 PM CDT Sexual Orientation Straight 02/26/2023 1: 40 PM GLUING PRESSMAN documented as of this encounter Functional Status * Are you deaf or do you have serious difficulty hearing Answer Date of Assessment Author Status No 06/21/2023 11:27 AM Yanira Michel RN Active * Are you blind or do you have serious difficulty seeing, even when wearing glasses? Answer Date of Assessment Author Status No 06/21/2023 11:27 AM Yanira Michel RN Active * Do you have serious difficulty walking or climbing stairs? Answer Date of Assessment Author Status No 06/21/2023 11:27 AM Yanira Michel RN Active * Do you have difficulty dressing or bathing? Answer Date of Assessment Author Status No 06/21/2023 11:27 AM Yanira Michel RN Active * Because of a physical, mental, or emotional condition, do you have difficulty doing errands alone such as visiting a doctor's office or shopping? Answer Date of Assessment Author Status No 06/21/2023 11:27 AM Yanira Michle RN Active documented as of this encounter Mental Status * Because of a physical, mental, or emotional condition, do you have serious difficulty concentrating, remembering, or making decisions? Answer Entry Date Author Status No 06/21/2023 11:27 AM GLUING PRESSMAN Yanira Castellanos, RN Active documented in this encounter Plan of Treatment Upcoming Encounters Date Type Department Care Team (Late st Contact Info) Description 04/29/2024 1:45 PM GLUING PRESSMAN Office Visit [facility] [address] [address] Sujatha Solis, [facility]- [address] [place] [address] [place] [address] documented as of this encounter Visit Diagnoses Not on filedocumented in this encounter Care Teams Laborer Pipeline Relationship Specialty Start Date End Date Asif Coto DO [address] [place] [address] PCP - General FAMILY PRACTICE 09/29/21 documented as of this encounter
--- OUTSIDE RECORDS SUMMARY | 2024-04-23 21:36 | XMS_ITS | Encounter Summary ---
Author Organization [facility] Address [address] [place] [address]. [place] [address] [place] [address] Care Team Providers Care Pediatric Genetic Counselor Name Role Phone Asif Coto DO Primary Care Provider [phone] Encounter Details Date Type Department Care Team (Late st Contact Info) Description 08/24/2023 Orders Only [facility] [address] [facility] 1 [place] [address] Candida Padron PA [address] [place] [address] Social History Tobacco Use Types Packs/Day Years Used Date Smoking Tobacco: Former Cigarettes Smokeless Tobacco: Never Alcohol Use Standard Drinks/Week Comments Not Currently 0 (1 standard drink = 0.6 oz pur e alcohol) Occassionaly. [facility] Utilities Answer Date Recorded In the past 12 months has [employer], gas, oil, or water [employer] threatened to shut off services in your [...] declined 02/26/2023 How often do you attend orthodox or nondenominational serv ices? Patient declined 02/26/2023 Do you belong to any clubs o r organizations such as orthodox groups, unions, fraternal or athletic groups, or [...] Recorded Patient Health Questionnaire-2 Score 0 02/26/2023 [facility] Health - Occupational Stress [...] place to sleep or slept in a penitentiary (including now)? No 02/26/2023 Comments No Sex and Gender Information Value Date Recorded Sex Assigned at Female 08/07/2022 4:17 PM CDT Legal Sex Female 8:54 PM CDT Gender Identity Female 08/07/2022 4:17 PM CDT Sexual Orientation Straight 02/26/2023 1: 40 PM LEGAL ARBITRATOR documented as of this encounter Functional Status [...] 06/21/2023 11:27 AM Yanira Michel RN Active documented as of this encounter Mental Status * Because of a physical, mental, or emotional condition, do you have serious difficulty concentrating, remembering, or making decisions? Answer Entry Date Author Status No 06/21/2023 11:27 AM Yanira Michel RN Active documented in this encounter Plan of Treatment Upcoming Encounters Date Type Department Care Team (Late st Contact Info) Description 04/29/2024 1:45 PM LEGAL ARBITRATOR Office Visit [place] [id number] [facility] 1 [place] [address] Sujatha Solis, [facility]- [address] [place] [address] documented as of this encounter Results * XR KNEE STAND AP JENNIE ONLY (08/24/2023 9:14 AM CDT) Anatomical Region Laterality Modality Knee Radiographic Chanel ging 08/24/2023 2:15 PM CDT Impressions 08/24/2023 2:19 PM CDT IMPRESSION: 1. ??NO SIGNIFICANT RADIOGRAPHIC ABNORMALITY. Signed: Xavier Reis MD Referred By: ?? Interpreted By: Xavier Reis MD, 08/24/2023 2:15 PM Narrative 08/24/2023 2:19 PM CDT PATIENT NAME: DONNA NULL EXAM: Bilateral knee 2 view, right knee 2 view DATE OF EXAM: 08/24/2023 COMPARISON EXAM: 01/30/2023 INDICATION: Right knee pain TECHNIQUE: Standing PA and AP views of both knees, lateral and sunrise views right knee FINDINGS: No soft tissue abnormality. ??No joint effusion. ??Total right knee prosthesis. ??No evidence of complication involving the hardware. ??No evidence of acute fracture or focal lytic bone destruction. Procedure Note Xavier Reis MD - 08/24/2023 PATIENT NAME: DONNA NULL EXAM: Bilateral knee 2 view, right knee 2 view DATE OF EXAM: 08/24/2023 COMPARISON EXAM: 01/30/2023 INDICATION: Right knee pain TECHNIQUE: Standing PA and AP views of both knees, lateral and sunriseviews right knee FINDINGS: No soft tissue abnormality. No joint effusion. Total rightknee prosthesis. No evidence of complication involving the hardware. Noevidence of acute fracture or focal lytic bone destruction. IMPRESSION: 1. NO SIGNIFICANT RADIOGRAPHIC ABNORMALITY. Signed: Xavier Reis MD Referred By: Interpreted By: Xavier Reis MD, 08/24/2023 2:15 PM Candida [facility] Final Result * XR KNEE RT 2V (08/24/2023 9:14 AM CDT) Anatomical Region Laterality Modality Knee Radiographic Chanel ging 08/24/2023 2:15 PM CDT Impressions 08/24/2023 2:19 PM CDT IMPRESSION: 1. ??NO SIGNIFICANT RADIOGRAPHIC ABNORMALITY. Signed: Xavier Reis MD Referred By: ?? Interpreted By: Xavier Reis MD, 08/24/2023 2:15 PM Narrative 08/24/2023 2:19 PM CDT PATIENT NAME: DONNA NULL EXAM: Bilateral knee 2 view, right knee 2 view DATE OF EXAM: 08/24/2023 COMPARISON EXAM: 01/30/2023 INDICATION: Right knee pain TECHNIQUE: Standing PA and AP views of both knees, lateral and sunrise views right knee FINDINGS: No soft tissue abnormality. ??No joint effusion. ??Total right knee prosthesis. ??No evidence of complication involving the hardware. ??No evidence of acute fracture or focal lytic bone destruction. Procedure Note Xavier Reis MD - 08/24/2023 PATIENT NAME: DONNA NULL EXAM: Bilateral knee 2 view, right knee 2 view DATE OF EXAM: 08/24/2023 COMPARISON EXAM: 01/30/2023 INDICATION: Right knee pain TECHNIQUE: Standing PA and AP views of both knees, lateral and sunriseviews right knee FINDINGS: No soft tissue abnormality. No joint effusion. Total rightknee prosthesis. No evidence of complication involving the hardware. Noevidence of acute fracture or focal lytic bone destruction. IMPRESSION: 1. NO SIGNIFICANT RADIOGRAPHIC ABNORMALITY. Signed: Xavier Reis MD Referred By: Interpreted By: Xavier Reis MD, 08/24/2023 2:15 PM us Candida [facility] Final Result documented in this encounter Visit Diagnoses Diagnosis Right knee pain, unspecified chronicity Right knee pain, unspecified chronicity documented in this encounter Care Teams Pediatric Genetic Counselor Relationship Specialty Start Date End Date Asif Coto DO [address] [place] [address] PCP - General FAMILY PRACTICE 09/29/21 documented as of this encounter
--- OUTSIDE RECORDS SUMMARY | 2024-04-23 21:36 | XMS_ITS | Encounter Summary ---
Author Organization [facility] Address [address] [place] [address]. [place] [address] [place] [address] Care Team Providers Care Showroom Consultant Name Role Phone Nnamdi Asif GANDARA Primary Care Provider [phone] Encounter Details Date Type Department Care Team (Latest Contact Info) Description 01/22/2024 10:13 AM CDT - 01/22/2024 11:59 PM [facility] Hospital Encounter [facility] [address] [place] [address] Yudelka Howe PA [address] [facility] 1 [place] [address] Discharge Disposition: Home or Self Care (Routine Discharge) Social History Tobacco Use Types Packs/Day Years Used Date Smoking Tobacco: Former Cigarettes Smokeless Tobacco: Never Alcohol Use Standard Drinks/Week Comments Not Currently 0 (1 standard drink = 0.6 oz pur e alcohol) Occassionaly. [facility] Utilities Answer Date Recorded In the past 12 months has e electric, gas, oil, or water company threatened to shut off services in your [...] declined 02/26/2023 How often do you attend catholic or episcopalian serv ices? Patient declined 02/26/2023 Do you belong to any clubs o r organizations such as catholic groups, unions, fraternal or athletic groups, or [...] Recorded Patient Health Questionnaire-2 Score 0 02/26/2023 [facility] [place] of Occupat ional Health - Occupational Stress [...] place to sleep or slept in a usp (including now)? No 02/26/2023 Comments No Sex and Gender Information Value Date Recorded Sex Assigned at Female 08/07/2022 4:17 PM CDT Legal Sex Female 8:54 PM CDT Gender Identity Female 08/07/2022 4:17 PM CDT Sexual Orientation Straight 02/26/2023 1: 40 PM CUSTOMER RELATIONS ASSISTANT documented as of this encounter Functional Status * Are you deaf or do you have serious difficulty hearing Answer Date of Assessment Author Status No 06/21/2023 11:27 AM CUSTOMER RELATIONS ASSISTANT Yanira Castellanos RN Active * Are you blind or [...] Michel RN Active documented in this encounter Medications at Time of Discharge amLODIPine 10 MG tablet Take 1 tablet (10 mg total) by mouth daily. 06/27/2021 atorvastatin 40 MG tablet Take 1 tablet (40 mg total) by mouth daily. 06/03/2021 Blood Glucose Monitoring Suppl (TRUE METRIX METER) w/Device Kit 01/10/2021 Coconut Oil 1000 MG Cap Take 3,000 mg by mouth 2 (two) times a day. cyanocobalamin (B-12) 1000 MCG/ML injection Inject 1 mL (1,000 mcg total) into the muscle once a week. 07/11/2022 cyclobenzaprine (FLEXERIL) 5 MG tablet Take 1 tablet (5 mg total) by mouth 2 (two) times daily as needed. 07/13/2022 Eszopiclone 3 MG Tab Take 3 mg by mouth nightly at bedtime. 05/17/2023 HYDROMORPHONE HCL IJ Via internal pump levothyroxine (SYNTHROID) 75 MCG tablet Take 1 tablet (75 mcg total) by mouth every morning. 05/08/2023 lisinopril (PRINIVIL) 5 MG tablet Take 1 tablet (5 mg total) by mouth daily. 12/29/2020 losartan (COZAAR) 50 MG tablet Take 1 tablet (50 mg total) by mouth daily. 08/21/2022 meloxicam (MOBIC) 7.5 MG tablet Take 1 tablet (7.5 mg total) by mouth daily. 30 tablet 2 01/22/2024 metFORMIN ER 500 MG 24 hr tablet Take 1 tablet (500 mg total) by mouth nightly at bedtime. 05/13/2021 [facility] Natural Products (OSTEO BI-FLEX ADV TRIPLE ST) Tab Take 1 tablet by mouth 2 (two) times a day. [place]-3 Fatty Acids (FISH OIL) 500 MG capsule Take 1,000 mg by mouth daily. OZEMPIC 1 mg/dose injection (PEN) Inject into the skin once a week. 04/06/2023 pantoprazole EC (PROTONIX) 40 MG tablet Take 1 tablet (40 mg total) by mouth daily. 05/17/2023 traZODone (DESYREL) 100 MG tablet Take 1 tablet (100 mg total) by mouth nightly at bedtime. 01/03/2024 TRUE METRIX BLOOD GLUCOSE TEST test strip 01/10/2021 TRUEplus Lancets 33G [facility] 01/10/2021 vitamin D3 (CHOLECALCIFEROL ) 25 mcg tablet Take 1 tablet (25 mcg total) by mouth daily. naloxone (NARCAN) 4 MG/0.1ML nasal spray 1 spray by Nasal route as needed for Opioid reversal. may repeat every 2 to 3 minutes in alternating nostrils until medical assistance becomes available 1 each 02/27/2023 4 documented as of this encounter Plan of Treatment Upcoming Encounters Date Type Department Care Team (Late st Contact Info) Description 04/29/2024 1:45 PM CUSTOMER RELATIONS ASSISTANT Office Visit [facility] [address] [address] Sujatha Solis, [employer]- [address] [facility] [place] [address] documented as of this encounter Procedures Procedure Name Priority Date/Time Associated Diagnosis Comments XR KNEE LT 3V Routine 01/22/2024 10:52 AM CDT Acute pain of left knee documented in this encounter Results * XR KNEE LT 3V (01/22/2024 10:52 AM CDT) Anatomical Region Laterality Modality Knee Radiographic Chanel ging 01/22/2024 4:25 PM CDT Impressions 01/22/2024 4:26 PM CDT IMPRESSION: No acute findings. Stable degenerative changes. Ordered By: YUDELKA HOWE Interpreted By: Abimael Shannon MD, 01/22/2024 4:25 PM Narrative 01/22/2024 4:26 PM CDT [address] [place] [address] Examination: Left knee. Exam time: 0944 hours. Clinical history: Pain. Comparison: 08/08/2022. Technique: [place] and weightbearing AP and lateral views. Findings: No fracture, dislocation or other acute bony abnormality is identified. There are stable mild degenerative changes manifested by patellofemoral and medial femorotibial joint space narrowing and periarticular osteophyte formation. No other significant bone or joint abnormality is noted. The soft tissues are unremarkable. Procedure Note Abimael Shannon MD - 01/22/[address] [place] [address] Examination: Left knee. Exam time: 0944 hours. Clinical history: Pain. Comparison: 08/08/2022. Technique: [place] and weightbearing AP and lateral views. Findings: No fracture, dislocation or other acute bony abnormality isidentified. There are stable mild degenerative changes manifested bypatellofemoral and medial femorotibial joint space narrowing andperiarticular osteophyte formation. No other significant bone or jointabnormality is noted. The soft tissues are unremarkable. IMPRESSION: No acute findings. Stable degenerative changes. Ordered By: YUDELKA HOWE Interpreted By: Abimael Shannon MD, 01/22/2024 4:25 PM us Yudelka [facility] Final Result documented in this encounter Visit Diagnoses Diagnosis Acute pain of left knee documented in this encounter Care Teams Showroom Consultant Relationship Specialty Start Date End Date Asif Coto DO [address] [place] [address] PCP - General FAMILY PRACTICE 09/29/21 documented as of this encounter
--- OUTSIDE RECORDS SUMMARY | 2024-04-23 21:36 | XMS_ITS | Encounter Summary ---
Author Organization [facility] Address [address] [place] [address]. [place] [address] [place] [address] Care Team Providers Care Shipping Clerk/Admin Name Role Phone MushtaqAsif hanson Primary Care Provider [phone] Encounter Details Date Type Department Care Team (Late st Contact Info) Description 07/19/2023 Orders Only [facility] [address] [place] [address], [facility] 1 [place] [address] Roldan Rader MD [address] [place] [address] Social History Tobacco Use Types Packs/Day Years Used Date Smoking Tobacco: Former Cigarettes Smokeless Tobacco: Never Alcohol Use Standard Drinks/Week Comments Not Currently 0 (1 standard drink = 0.6 oz pur e alcohol) Occassionaly. [facility] Utilities Answer Date Recorded In the past 12 months has [employer], gas, oil, or water [email or web address] threatened to shut off services in your [...] declined 02/26/2023 How often do you attend jehovah's witness or bahai serv ices? Patient declined 02/26/2023 Do you belong to any clubs o r organizations such as jehovah's witness groups, unions, fraternal or athletic groups, or [...] Recorded Patient Health Questionnaire-2 Score 0 02/26/2023 [facility] - Occupational [...] place to sleep or slept in a residential (including now)? No 02/26/2023 Comments No Sex and Gender Information Value Date Recorded Sex Assigned at Female 08/07/2022 4:17 PM CDT Legal Sex Female 8:54 PM CDT Gender Identity Female 08/07/2022 4:17 PM CDT Sexual Orientation Straight 02/26/2023 1: 40 PM OPERATIONAL RISK CONSULTANT documented as of this encounter Functional Status [...] st Contact Info) Description 04/29/2024 1:45 PM OPERATIONAL RISK CONSULTANT Office Visit [facility] [address] [address] Sujatha Solis, [facility]- [address] [place] [address] documented as of this encounter Results * XR PELVIS AP+LT HIP 1V (08/14/2023 10:26 AM CDT) Anatomical Region Laterality Modality Pelvis, Hip Radiographic Chanel ging 08/14/2023 2:51 PM CDT Impressions 08/14/2023 2:54 PM CDT IMPRESSION: 1. 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 No acute abnormality identified. 2. ??Persistent 4 mm of lucency involving the proximal left femur, unchanged over multiple prior studies. Ordered By: ROLDAN RADER Interpreted By: Júnior Berg MD, 08/14/2023 2:51 PM Narrative 08/14/2023 2:54 PM CDT Examination: XR PELVIS AP+LT HIP 1V Exam time: 08/14/2023 10:17 AM Clinical history: Orthopedic aftercare, follow-up left hip replacement. Comparison: Radiographs July 10, 2023, July 02, 2023 and June 30, 2023. Technique: AP view of the pelvis and one view of the left hip. Findings: Stable appearance of the right hip arthroplasty. The left hip arthroplasty demonstrates stable alignment. Persistent approximately 4 mm of lucency redemonstrated involving the proximal femur along the medial aspect of the femoral stem. This is unchanged over multiple prior studies and is nonspecific. No new lucencies noted. No fracture or destructive bone process. The orthopedic hardware is intact. Procedure Note Júnior Berg MD - 08/14/2023 Examination: XR PELVIS AP+LT HIP 1V Exam time: 08/14/2023 10:17 AM Clinical history: Orthopedic aftercare, follow-up left hip replacement. Comparison: Radiographs July 10, 2023, July 02, 2023 and June. Technique: AP view of the pelvis and one view of the left hip. Findings: Stable appearance of the right hip arthroplasty. The left hip arthroplastydemonstrates stable alignment. Persistent approximately 4 mm of lucencyredemonstrated involving the proximal femur along the medial aspect of thefemoral stem. This is unchanged over multiple prior studies and isnonspecific. No new lucencies noted. No fracture or destructive boneprocess. The orthopedic hardware is intact. IMPRESSION: 1. 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 Noacute abnormality identified. 2. Persistent 4 mm of lucency involving the proximal left femur,unchanged over multiple prior studies. 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
--- OUTSIDE RECORDS SUMMARY | 2024-04-23 21:36 | XMS_ITS | Encounter Summary ---
Author Organization [facility] Address [address] [place] [address]. [place] [address] [place] [address] Care Team Providers Care Cognos Report Developer Name Role Phone MushtaqVivi hansonvarsha GANDARA Primary Care Provider [phone] Reason for Visit * Reason Onset Date Comments Error 08/06/2023 Encounter Details Date Type Department Care Team (Late st Contact Info) Description 08/06/2023 [facility]phone [facility] [address], [facility] 1 [place] [address] Roldan Rader MD [address] [place] [address] Error Social History Tobacco Use Types Packs/Day Years Used Date Smoking Tobacco: Former Cigarettes Smokeless Tobacco: Never Alcohol Use Standard Drinks/Week Comments Not Currently 0 (1 standard drink = 0.6 oz pur e alcohol) Occassionaly. [facility] Utilities Answer Date Recorded In the past 12 months has [employer], gas, oil, or water [employer] threatened to shut off services in your [...] declined 02/26/2023 How often do you attend zoroastrianism or presybeterian serv ices? Patient declined 02/26/2023 Do you belong to any clubs o r organizations such as zoroastrianism groups, unions, fraternal or athletic groups, or [...] Recorded Patient Health Questionnaire-2 Score 0 02/26/2023 [facility] - Occupational Stress [...] Sexual Orientation Straight 02/26/2023 1: 40 PM COTTON GINNER HELPER documented as of this encounter Functional Status * Are you deaf or do you have serious difficulty hearing Answer Date of Assessment Author Status No 06/21/2023 11:27 AM Yanira Micehl RN Active * Are you blind or [...] Assessment Author Status No 06/21/2023 11:27 AM COTTON GINNER HELPER Emanuel, Yanira E, RN Active * Because of a physical, mental, or emotional condition, do you have difficulty doing errands alone such as visiting a doctor's office or shopping? Answer Date of Assessment Author Status No 06/21/2023 11:27 AM COTTON GINNER HELPER Yanira Castellanos RN Active documented as of this encounter Mental Status * Because of a physical, mental, or emotional condition, do you have serious difficulty concentrating, remembering, or making decisions? Answer Entry Date Author Status No 06/21/2023 11:27 AM Yanira Michel RN Active documented in this encounter Plan of Treatment Upcoming Encounters Date Type Department Care Team (Late st Contact Info) Description 04/29/2024 1:45 PM COTTON GINNER HELPER Office Visit [address] [address] Sujatha Solis, [facility]- [address] [facility] [place] [address] documented as of this encounter Visit Diagnoses Diagnosis Status post total replacement of left hip- Primary documented in this encounter Care Teams Cognos Report Developer Relationship Specialty Start Date End Date Asif Coto DO [address] [place] [address] PCP - General FAMILY PRACTICE 09/29/21 documented as of this encounter
--- OUTSIDE RECORDS SUMMARY | 2024-04-23 21:36 | XMS_ITS | Encounter Summary ---
Author Organization [facility] Address [address] [place] [address]. [place] [address] [place] [address] Care Team Providers Care Body Care Manager Name Role Phone Nnamdi Asif GANDARA Primary Care Provider [phone] Encounter Details Date Type Department Care Team (Latest Contact Info) Description 07/10/2023 Travel Social History Tobacco Use Types Packs/Day Years Used Date Smoking Tobacco: Former Cigarettes Smokeless Tobacco: Never Alcohol Use Standard Drinks/Week Comments Not Currently 0 (1 standard drink = 0.6 oz pur e alcohol) Occassionaly. [facility] Utilities Answer Date Recorded In the past 12 months has [employer], gas, oil, or water [employer] threatened to shut off services in your [...] declined 02/26/2023 How often do you attend rastafari or adventism serv ices? Patient declined 02/26/2023 Do you belong to any clubs o r organizations such as rastafari groups, unions, fraternal or athletic groups, or [...] Recorded Patient Health Questionnaire-2 Score 0 02/26/2023 [facility] Occupat ional Health - [...] Sexual Orientation Straight 02/26/2023 1: 40 PM ADMINISTRATIVE ACCOUNTANT documented as of this encounter Functional Status [...] Date Author Status No 06/21/2023 11:27 AM ADMINISTRATIVE ACCOUNTANT Yanira Castellanos, RN Active documented in this encounter Plan of Treatment Upcoming Encounters Date Type Department Care Team (Late st Contact Info) Description 04/29/2024 1:45 PM ADMINISTRATIVE ACCOUNTANT Office Visit [facility] [address] [address] Sujatha Solis, [facility]- [address] [place] [address] [place] [address] documented as of this encounter Visit Diagnoses Not on filedocumented in this encounter Care Teams Body Care Manager Relationship Specialty Start Date End Date Asif Coto DO [address] [place] [address] PCP - General FAMILY PRACTICE 09/29/21 documented as of this encounter
--- OUTSIDE RECORDS SUMMARY | 2024-04-23 21:36 | XMS_ITS | Encounter Summary ---
Author Organization [facility] Address [address] [place] [address]. [place] [address] [place] [address] Care Team Providers Care It Director Name Role Phone Nnamdi Asif GANDARA Primary Care Provider [phone] Encounter Details Date Type Department Care Team (Latest Contact Info) Description 06/30/2023 Travel Social History Tobacco Use Types Packs/Day Years Used Date Smoking Tobacco: Former Cigarettes Smokeless Tobacco: Never Alcohol Use Standard Drinks/Week Comments Not Currently 0 (1 standard drink = 0.6 oz pur e alcohol) Occassionaly. [facility] Utilities Answer Date Recorded In the past 12 months has [employer], gas, oil, or water [employer] threatened to shut off services in your [...] declined 02/26/2023 How often do you attend tenriism or zoroastrianism serv ices? Patient declined 02/26/2023 Do you belong to any clubs o r organizations such as tenriism groups, unions, fraternal or athletic groups, or [...] Recorded Patient Health Questionnaire-2 Score 0 02/26/2023 [facility] Occupat ional Health - Occupational [...] place to sleep or slept in a longterm (including now)? No 02/26/2023 Comments No Sex and Gender Information Value Date Recorded Sex Assigned at Female 08/07/2022 4:17 PM CDT Legal Sex Female 8:54 PM CDT Gender Identity Female 08/07/2022 4:17 PM CDT Sexual Orientation Straight 02/26/2023 1: 40 PM PRODUCT SAFETY CONSULTANT documented as of this encounter Functional [...] Date Author Status No 06/21/2023 11:27 AM PRODUCT SAFETY CONSULTANT Yanira Castellanos, RN Active documented in this encounter Plan of Treatment Upcoming Encounters Date Type Department Care Team (Late st Contact Info) Description 04/29/2024 1:45 PM PRODUCT SAFETY CONSULTANT Office Visit [facility] [address] [address] Sujatha Solis, [facility]- [address] [place] [address] [place] [address] documented as of this encounter Visit Diagnoses Not on filedocumented in this encounter Care Teams It Director Relationship Specialty Start Date End Date Asif Coto DO [address] [place] [address] PCP - General FAMILY PRACTICE 09/29/21 documented as of this encounter
--- OUTSIDE RECORDS SUMMARY | 2024-04-23 21:36 | XMS_ITS | Encounter Summary ---
Author Organization [facility] Address [address] [place] [address]. [place] [address] [place] [address] Care Team Providers Care Furniture Mover Helper Name Role Phone MushtaqAsif hanson Primary Care Provider [phone] Encounter Details Date Type Department Care Team (Late st Contact Info) Description 08/07/2023 Orders Only [facility] [address] [place] [address], [facility] 1 [place] [address] Roldan Rader MD [address] [place] [address] Social History Tobacco Use Types Packs/Day Years Used Date Smoking Tobacco: Former Cigarettes Smokeless Tobacco: Never Alcohol Use Standard Drinks/Week Comments Not Currently 0 (1 standard drink = 0.6 oz pur e alcohol) Occassionaly. [facility] Utilities Answer Date Recorded In the past 12 months has [employer], gas, oil, or water [employer] threatened to shut off services in your [...] declined 02/26/2023 How often do you attend sikhism or restorationism serv ices? Patient declined 02/26/2023 Do you belong to any clubs o r organizations such as sikhism groups, unions, fraternal or athletic groups, or [...] Recorded Patient Health Questionnaire-2 Score 0 02/26/2023 [facility] Occupat ional Health - Occupational [...] place to sleep or slept in a assisted (including now)? No 02/26/2023 Comments No Sex and Gender Information Value Date Recorded Sex Assigned at Female 08/07/2022 4:17 PM CDT Legal Sex Female 8:54 PM CDT Gender Identity Female 08/07/2022 4:17 PM CDT Sexual Orientation Straight 02/26/2023 1: 40 PM MANUFACTURING JOB TITLES documented as of this encounter Functional Status [...] Assessment Author Status No 06/21/2023 11:27 AM MANUFACTURING JOB TITLES Yanira Castellanos RN Active documented as of this encounter Mental Status * Because of a physical, mental, or emotional condition, do you have serious difficulty concentrating, remembering, or making decisions? Answer Entry Date Author Status No 06/21/2023 11:27 AM MANUFACTURING JOB TITLES Yanira Castellanos RN Active documented in this encounter Plan of Treatment Upcoming Encounters Date Type Department Care Team (Late st Contact Info) Description 04/29/2024 1:45 PM MANUFACTURING JOB TITLES Office Visit [address] [address] Sujatha Solis, [facility] [place] [address] documented as of this encounter Visit Diagnoses Diagnosis Status post total replacement of left hip- Primary documented in this encounter Care Teams Furniture Mover Helper Relationship Specialty Start Date End Date Asif Coto DO [address] [place] [address] PCP - General FAMILY PRACTICE 09/29/21 documented as of this encounter
--- OUTSIDE RECORDS SUMMARY | 2024-04-23 21:36 | XMS_ITS | Encounter Summary ---
Author Organization [facility] Address [address] [place] [address]. [place] [address] [place] [address] Care Team Providers Care Security Assurance Analyst Name Role Phone Nnamdi Asif GANDARA Primary Care Provider [phone] Encounter Details Date Type Department Care Team (Latest Contact Info) Description 07/02/2023 9:55 AM CDT - 07/02/2023 11:[address] [facility] Hospital Encounter [facility] [address] [place] [address] Yudelka Howe PA [address] [facility] 1 [place] [address] Discharge Disposition: Home or Self Care (Routine Discharge) Social History Tobacco Use Types Packs/Day Years Used Date Smoking Tobacco: Former Cigarettes Smokeless Tobacco: Never Alcohol Use Standard Drinks/Week Comments Not Currently 0 (1 standard drink = 0.6 oz pur e alcohol) Occassionaly. [facility] Utilities Answer Date Recorded In the [...] declined 02/26/2023 How often do you attend christianity or episcopalian serv ices? Patient declined 02/26/2023 Do you belong to any clubs o r organizations such as christianity groups, unions, fraternal or athletic groups, or [...] Recorded Patient Health Questionnaire-2 Score 0 02/26/2023 [facility] Occupat ional Health - Occupational Stress [...] place to sleep or slept in a fci (including now)? No 02/26/2023 Comments No Sex and Gender Information Value Date Recorded Sex Assigned at Female 08/07/2022 4:17 PM CDT Legal Sex Female 8:54 PM CDT Gender Identity Female 08/07/2022 4:17 PM CDT Sexual Orientation Straight 02/26/2023 1: 40 PM COLOR SHOP HELPER documented as of this encounter Functional Status * Are you deaf or do you have serious difficulty hearing Answer Date of Assessment Author Status No 06/21/2023 11:27 AM COLOR SHOP HELPER Yanira Castellanos RN Active * Are you [...] (50 mg total) by mouth daily. 08/21/2022 metFORMIN ER 500 MG 24 hr tablet Take 1 tablet (500 mg total) by mouth nightly at bedtime. 05/13/2021 Misc Natural Products (OSTEO BI-FLEX ADV TRIPLE ST) Tab Take 1 tablet by mouth 2 (two) times a day. [place]-3 Fatty Acids (FISH OIL) 500 MG capsule Take 1,000 mg by mouth daily. OZEMPIC 1 mg/dose injection (PEN) Inject into the skin once a week. 04/06/2023 pantoprazole EC (PROTONIX) 40 MG tablet Take 1 tablet (40 mg total) by mouth daily. 05/17/2023 TRUE METRIX BLOOD GLUCOSE TEST test strip 01/10/2021 TRUEplus Lancets 33G Misc 01/10/2021 vitamin D3 (CHOLECALCIFEROL) 25 mcg tablet Take 1 tablet (25 mcg total) by mouth daily. 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 28 tablet 06/22/2023 07/06/19 24 hydrOXYzine (VISTARIL) 25 MG capsuleIndications: Allergic contact dermatitis due to adhesives Take 1 capsule (25 mg total) by mouth 3 (three) times daily as needed for Itching. 30 capsule 06/25/2023 07/05/19 24 meloxicam (MOBIC) 15 MG tabletIndications:S tatus post total replacement of right hip,Primary osteoarthritis of left knee,Primary osteoarthritis of left hip Take 0.5 tablets (7.5 mg total) by mouth daily. 30 tablet 2 05/09/2023 07/25/19 24 naloxone (NARCAN) 4 MG/0.1ML nasal spray 1 spray by Nasal route as needed for Opioid reversal. may repeat every 2 to 3 minutes in alternating nostrils until medical assistance becomes available 1 each 02/27/2023 02/27/20 24 oxyCODONE-acetamino phen (PERCOCET) 5-325 MG tabletIndications:C hronic Pain Take 1 tablet by mouth every 6 (six) hours as needed for Pain. Indications: Chronic Pain 30 tablet 06/28/2023 07/06/19 24 sulfamethoxazole-tr imethoprim (BACTRIM DS) 800-160 MG tabletIndications:C ellulitis of buttock Take 1 tablet by mouth 2 (two) times daily for 10 days. 20 tablet 06/28/2023 07/08/19 24 documented as of this encounter Plan of Treatment Upcoming Encounters Date Type Department Care Team (Gini oliver Contact Info) Description 04/29/2024 1:45 PM COLOR SHOP HELPER Office Visit [facility] [address] [facility] 1 [place] [address] Sujatha Solis, [facility]- [address] [facility] [place] [address] documented as of this encounter Procedures Procedure Name Priority Date/Time Associated Diagnosis Comments XR PELVIS AP+LT HIP 1V Routine 07/02/2023 10:26 AM CDT Status post total replacement of left hip documented in this encounter Results * XR PELVIS AP+LT HIP 1V (07/02/2023 10:26 AM CDT) Anatomical Region Laterality Modality Pelvis, Hip Radiographic Chanel ging 07/02/2023 1:57 PM CDT Impressions 07/02/2023 1:59 PM CDT IMPRESSION: No change of the 4 mm gap between the proximal femur and hardware. Ordered By: YUDELKA HOWE Interpreted By: Andres Medeiros MD, 07/02/2023 1:57 PM Narrative 07/02/2023 1:59 PM CDT Examination: XR PELVIS AP+LT HIP 1V Exam time: 07/02/2023 10:26 AM Clinical history: PT HAD LEFT HIP REPLACEMENT AND HERE FOR HER VISIT THEY NOTICED POSSIBLE INFECTION AROUND THE WOUND FROM HER DRESSINGS. ??XRAY DONE TO RECHECK HIP. Comparison: 06/30/2023 and 06/21/2023 Technique: AP view pelvis, one view left hip Findings: There is persistent 4 mm lucent gap between the [place] bone and the hardware of the proximal left femur. Overall, stable hardware and osseous structures. Procedure Note Andres Medeiros MD - 07/02/2023 Examination: XR PELVIS AP+LT HIP 1V Exam time: 07/02/2023 10:26 AM Clinical history: PT HAD LEFT HIP REPLACEMENT AND HERE FOR HER VISIT THEYNOTICED POSSIBLE INFECTION AROUND THE WOUND FROM HER DRESSINGS. XRAY DONETO RECHECK HIP. Comparison: 06/30/2023 and 06/21/2023 Technique: AP view pelvis, one view left hip Findings: There is persistent 4 mm lucent gap between the [place] bone andthe hardware of the proximal left femur. Overall, stable hardware andosseous structures. IMPRESSION: No change of the 4 mm gap between the proximal femur and hardware. Ordered By: YUDELKA HOWE Interpreted By: Andres Medeiros MD, 07/02/2023 1:57 PM us Yudelka [facility] Final Result documented in this encounter Visit Diagnoses Diagnosis Status post total replacement of left hip documented in this encounter Care Teams Security Assurance Analyst Relationship Specialty Start Date End Date Asif Coto DO [address] [place] [address] PCP - General FAMILY PRACTICE 09/29/21 documented as of this encounter
--- OUTSIDE RECORDS SUMMARY | 2024-04-23 21:36 | XMS_ITS | Encounter Summary ---
Author Organization [facility] Address [address] [place] [address]. [place] [address] [place] [address] Care Team Providers Care Bulk Mail Clerk Name Role Phone MushtaqAsif hanson Primary Care Provider [phone] Reason for Visit * Reason Comments Postop Followup DOS:06/21/2023- LEFT total hip arthroplasty Encounter Details Date Type Department Care Team (Latest Contact Info) Description 08/14/2023 10:15 AM CDT Office Visit [facility] [address], [address] [address] Roldan Rader MD [address] [place], [place] [id number] Postop Followup (DOS:06/21/2023- LEFT total hip arthroplasty) Social History Tobacco Use Types Packs/Day Years Used Date Smoking Tobacco: Former Cigarettes Smokeless Tobacco: Never Tobacco Cessation:Counseling Given: Not Answered Alcohol Use Standard Drinks/Week Comments Not Currently 0 (1 standard drink = 0.6 oz pur e alcohol) Occassionaly. [facility] Utilities Answer Date Recorded In the past 12 months has e [employer], gas, oil, or water [employer] threatened to shut off services in your [...] declined 02/26/2023 How often do you attend anglican or orthodox serv ices? Patient declined 02/26/2023 Do you belong to any clubs o r organizations such as anglican groups, unions, fraternal or athletic groups, or [...] Recorded Patient Health Questionnaire-2 Score 0 02/26/2023 [employer] [place] [facility] Occup[facility] - Occupational Stress [...] place to sleep or slept in a long-term (including now)? No 02/26/2023 Comments No Sex and Gender Information Value Date Recorded Sex Assigned at Female 08/07/2022 4:17 PM CDT Legal Sex Female 8:54 PM CDT Gender Identity Female 08/07/2022 4:17 PM CDT Sexual Orientation Straight 02/26/2023 1: 40 PM OVERHEAD IRRIGATOR documented as of this encounter Last Filed Vital Signs Vital Sign Reading Time Taken Comments Blood Pressure - - Pulse - - Temperature - - Respiratory Rate - - Oxygen Saturation - - Inhaled Oxygen Concentration - - Weight 70.3 kg (155 lb) 08/14/2023 10:20 AM CDT Height 165.1 cm (5' 5 ) 08/14/2023 10:20 AM CDT Body Mass Index 25.79 08/14/2023 10:20 AM CDT documented in this encounter Functional Status * Are you [...] Michel RN Active documented in this encounter Progress Notes * Shirley NorthALBERTOA - 08/14/2023 10:15 AM CDT Donna is a 67-year-old female who presents for Postop Followup (DOS:06/21/2023- LEFT total hip arthroplasty) Patient is here today to follow up after LEFT HITESH. She states that her LEFT hip pain is improving. She states that she does continue to have some muscle spasms in her LEFT thigh as well as some anterior numbness. She states that she is taking Mobic 7.5mg daily but would like to increased to 15 mg. She does have a pain pump with Hydromorphone. She states that her LEFT knee pain has been worsening.She states that she completed PT last week. She ambulates with the assistance of a cane. She deniesnight pain. No additional nursing task documentation needed. Vitals: 08/14/23 1020 Weight: 70.3 kg (155 lb) Height: 1.651 m (5' 5 ) Current Outpatient Medications Medication Sig amLODIPine 10 MG tablet Take 1 tablet (10 mg total) by mouth daily. atorvastatin 40 MG tablet Take 1 tablet (40 mg total) by mouth daily. Blood Glucose Monitoring Suppl (TRUE METRIX METER) w/Device Kit Coconut Oil 1000 MG Cap Take 3,000 mg by mouth 2 (two) times a day. cyanocobalamin (B-12) 1000 MCG/ML injection Inject 1 mL (1,000 mcg total) into the muscle once a week. cyclobenzaprine (FLEXERIL) 5 MG tablet Take 1 tablet (5 mg total) by mouth 2 (two) times daily as needed. Eszopiclone 3 MG Tab Take 3 mg by mouth nightly at bedtime. HYDROMORPHONE HCL IJ Via internal pump levothyroxine (SYNTHROID) 75 MCG tablet Take 1 tablet (75 mcg total) by mouth every morning. lisinopril (PRINIVIL) 5 MG tablet Take 1 tablet (5 mg total) by mouth daily. losartan (COZAAR) 50 MG tablet Take 1 tablet (50 mg total) by mouth daily. meloxicam (MOBIC) 15 MG tablet Take 0.5 tablets (7.5 mg total) by mouth daily. metFORMIN ER 500 MG 24 hr tablet Take 1 tablet (500 mg total) by mouth nightly at bedtime. Misc Natural Products (OSTEO BI-FLEX ADV TRIPLE ST) Tab Take 1 tablet by mouth 2 (two) times a day. naloxone (NARCAN) 4 MG/0.1ML nasal spray 1 spray by Nasal route as needed for Opioid reversal. may repeat every 2 to 3 minutes in alternating nostrils until medical assistance becomes available [place]-3 Fatty Acids (FISH OIL) 500 MG capsule Take 1,000 mg by mouth daily. oxyCODONE-acetaminophen (PERCOCET) 5-325 MG tablet Take 1 tablet by mouth every 6 (six) hours as needed for Pain. Indications: Chronic Pain OZEMPIC 1 mg/dose injection (PEN) Inject into the skin once a week. pantoprazole EC (PROTONIX) 40 MG tablet Take 1 tablet (40 mg total) by mouth daily. TRUE METRIX BLOOD GLUCOSE TEST test strip TRUEplus Lancets [facility]G [facility] vitamin D3 (CHOLECALCIFEROL) 25 mcg tablet Take 1 tablet (25 mcg total) by mouth daily. Past Surgical History: Procedure Laterality Date BACK SURGERY x3 FOOT SURGERY Left 07/27/2022 FOOT SURGERY Right 2001 HIP ARTHROPLASTY Right 02/26/2023 KNEE ARTHROPLASTY Right 04/01/2014 PUMP INFILTRATION Left pain pump TOTAL HIP ARTHROPLASTY Left 06/21/2023 Dr. Rader TOTAL KNEE ARTHROPLASTY Left 06/21/2023 Allergies 2-octylcyanoacrylate [cyanoacrylate] and Adhesive [vinyl] [x] Total Gjns-wb-Hhwi Assessment Time: 0-15 minutes Additional Contributory Factors NONE * Roldan Rader MD - 08/14/2023 10:15 AM CDT Chief Complaint: Postop Followup (DOS:06/21/2023- LEFT total hip arthroplasty) History of Present Illness: Donna Saunders is a 67-year-old female who presents to the office for Postop Followup (DOS:06/21/2023- LEFT total hip arthroplasty) Patient is here today to follow up after LEFT HITESH. She states that her LEFT hip pain is improving. She states that she does continue to have some muscle spasms in her LEFT thigh as well as some anterior numbness. She states that she is taking Mobic 7.5mg daily but would like to increased to 15 mg. She does have a pain pump with Hydromorphone. She states that her LEFT knee pain has been worsening.She states that she completed PT last week. She ambulates with the assistance of a cane. She deniesnight pain. 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 History of total right hip arthroplasty Aftercare following left hip joint replacement surgery History: Past Medical History: Diagnosis Date Aphthous stomatitis Chronic back pain Diabetes (CMS/HCC HHS/HCC) Hypertension Hypothyroidism, unspecified Mixed hyperlipidemia Osteoarthritis of right hip 02/26/2023 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 01/31/2023 Added automatically from request for surgery [id number] Past Surgical History: Procedure Laterality Date BACK SURGERY x3 FOOT SURGERY Left 07/27/2022 FOOT SURGERY Right 2001 HIP ARTHROPLASTY Right 02/26/2023 KNEE ARTHROPLASTY Right 04/01/2014 PUMP INFILTRATION Left pain pump TOTAL HIP ARTHROPLASTY Left 06/21/2023 Dr. Rader Family History Problem Relation Name Age of Onset Other (heart problems) Mother Cancer Father Thyroid Disease Other Family Status Relation Name Status Mother Father Other (Not Specified) No partnership data on file Social History Socioeconomic History Marital status: Tobacco Use Smoking status: Former Types: Cigarettes Smokeless tobacco: Never Vaping Use Vaping status: Never Used Substance and Sexual Activity Alcohol use: Not Currently Comment: Occassionaly. Drug use: Never Sexual activity: Not Currently Social Determinants of Health Financial Resource Strain: Low Risk (02/26/2023) Overall Financial Resource Strain (CARDIA) Difficulty of Paying Living Expenses: Not hard at all Food Insecurity: No Food Insecurity (02/26/2023) Hunger Vital Sign Worried About Running Out of Food in the Last Year: Never true Ran Out of Food in the Last Year: Never true Transportation Needs: No Transportation Needs (02/26/2023) PRAPARE - Transportation Lack of Transportation (Medical): No Lack of Transportation (Non-Medical): No Physical Activity: Inactive (02/26/2023) Exercise Vital Sign Days of Exercise per Week: 0 days Minutes of Exercise per Session: 0 min Stress: No Stress Concern Present (02/26/2023) [employer] [facility] [employer] - Occupational Stress Questionnaire Feeling of Stress : Not at all Social Connections: Unknown (02/26/2023) Social Connection and Isolation Panel [NHANES] Frequency of Communication with Friends and Family: Patient declined Frequency of Social Gatherings with Friends and Family: Patient declined Attends Temple Services: Patient declined Active Member of Clubs or Organizations: Patient declined Attends Club or Organization Meetings: Patient declined Marital Status: Intimate Partner Violence: Not At Risk (02/26/2023) Humiliation, Afraid, Rape, and Kick questionnaire Fear of Current or Ex-Partner: No Emotionally Abused: No Physically Abused: No Sexually Abused: No Housing Stability: Low Risk (02/26/2023) Housing Stability Vital Sign Unable to Pay for Housing in the Last Year: No Number of Places Lived in the Last Year: 1 Unstable Housing in the Last Year: No Medications: Current Outpatient Medications: meloxicam (MOBIC) 15 MG tablet, Take 1 tablet (15 mg total) by mouth daily., Disp: 30 tablet, Rfl: 2 amLODIPine 10 MG tablet, Take 1 tablet (10 mg total) by mouth daily., Disp: , Rfl: atorvastatin 40 MG tablet, Take 1 tablet (40 mg total) by mouth daily., Disp: , Rfl: Blood Glucose Monitoring Suppl (TRUE METRIX METER) w/Device Kit, , Disp: , Rfl: Coconut Oil 1000 MG Cap, Take 3,000 mg by mouth 2 (two) times a day., Disp: , Rfl: cyanocobalamin (B-12) 1000 MCG/ML injection, Inject 1 mL (1,000 mcg total) into the muscle once a week., Disp: , Rfl: cyclobenzaprine (FLEXERIL) 5 MG tablet, Take 1 tablet (5 mg total) by mouth 2 (two) times daily as needed., Disp: , Rfl: Eszopiclone 3 MG Tab, Take 3 mg by mouth nightly at bedtime., Disp: , Rfl: HYDROMORPHONE HCL IJ, Via internal pump, Disp: , Rfl: levothyroxine (SYNTHROID) 75 MCG tablet, Take 1 tablet (75 mcg total) by mouth every morning., Disp: , Rfl: lisinopril (PRINIVIL) 5 MG tablet, Take 1 tablet (5 mg total) by mouth daily., Disp: , Rfl: losartan (COZAAR) 50 MG tablet, Take 1 tablet (50 mg total) by mouth daily., Disp: , Rfl: meloxicam (MOBIC) 15 MG tablet, Take 0.5 tablets (7.5 mg total) by mouth daily., Disp: 30 tablet, Rfl: 2 metFORMIN ER 500 MG 24 hr tablet, Take 1 tablet (500 mg total) by mouth nightly at bedtime., Disp: , Rfl: Misc Natural Products (OSTEO BI-FLEX ADV TRIPLE ST) Tab, Take 1 tablet by mouth 2 (two) times a day., Disp: , Rfl: naloxone (NARCAN) 4 MG/0.1ML nasal spray, 1 spray by Nasal route as needed for Opioid reversal. mayrepeat every 2 to 3 minutes in alternating nostrils until medical assistance becomes available, Disp: 1 each, Rfl: PRN [place]-3 Fatty Acids (FISH OIL) 500 MG capsule, Take 1,000 mg by mouth daily., Disp: , Rfl: OZEMPIC 1 mg/dose injection (PEN), Inject into the skin once a week., Disp: , Rfl: pantoprazole EC (PROTONIX) 40 MG tablet, Take 1 tablet (40 mg total) by mouth daily., Disp: , Rfl: TRUE METRIX BLOOD GLUCOSE TEST test strip, , Disp: , Rfl: TRUEplus Lancets [facility]G [facility], , Disp: , Rfl: vitamin D3 (CHOLECALCIFEROL) 25 mcg tablet, Take 1 tablet (25 mcg total) by mouth daily., Disp: , Rfl: Review of patient's allergies indicates: Allergen Reactions 2-Octylcyanoacrylate [Cyanoacrylate] Hives, Rash and Swelling Dermabond Adhesive [Vinyl] Rash and Swelling Possibly Dermabond adhesive, used after surgery Objective: Body mass index is 25.79 kg/m??. Last Recorded Weight 08/14/23 1020 Weight: 70.3 kg (155 lb) Physical exam: Constitutional: Alert and in no acute distress. Neurological: The patient was oriented to person, place, and time. Eyes: The sclera and conjunctiva were normal ENT: Hearing was normal. Neck: The appearance of the neck was normal. Cardiovascular: Normal pulses. Pulmonary: No respiratory distress. Skin: No injuries or skin lesion. Musculoskeletal: Left hip demonstrates good range of motion with no discomfort. She is wearing a brace on her left knee and has diffuse tenderness with palpation mainly medially. No effusion is present. She has an antalgic gait because of her left knee pain Results: X-ray of the left hip demonstrates symmetric leg length and bilateral total hip arthroplasties are present with good stability of the implants Assessment: Encounter Diagnose(s) ICD-10-CM SNOMED CT(R) 1. Primary osteoarthritis of left knee M17.12 OSTEOARTHRITIS OF LEFT KNEE JOINT methylPREDNISolone acetate (DEPO-Medrol) injection 80 mg lidocaine (XYLOCAINE) 1 % injection SOLN 8 mL meloxicam (MOBIC) 15 MG tablet 2. Status post total replacement of left hip Z96.642 HISTORY OF TOTAL HIP ARTHROPLASTY Plan: Patient is doing very well after left hip replacement with resolution of her preoperative symptoms.She is struggling because of left knee pain as a result of osteoarthritis. I did inject the left knee with Depo-Medrol and lidocaine. She will return in 6 weeks for reevaluation. I will also refill her meloxicam Follow up: Return in about 6 weeks (around 09/25/2023). ROLDAN RADER MD documented in this encounter Plan of Treatment Upcoming Encounters Date Type Department Care Team (Late st Contact Info) Description 04/29/2024 1:45 PM OVERHEAD IRRIGATOR Office Visit [facility] [address] [place] [address] Sujatha Solis, CONTRACT RUNNER- [address] [place] [address] documented as of this encounter Visit Diagnoses Diagnosis Primary osteoarthritis of left knee- Primary Primary localized osteoarthrosis, lower leg Status post total replacement of left hip documented in this encounter Administered Medications Inactive Administered Medications - up to 3 most recent administrations Medication Order MAR Action Action Date Dose Rate Site lidocaine (XYLOCAINE) 1 % injection SOLN 8 mL 8 mL, Other, Once, 1 dose, On Sun08/14/23 at 1115Indications:Primary osteoarthritis of left knee Given 08/14/2023 10:47 AM CDT 8 mLs Left Knee methylPREDNISolone acetate (DEPO-Medrol) injection 80 mg 80 mg, Other, Once, 1 dose, On Sun08/14/23 at 1115, Shake WellIndications:Primary osteoarthritis of left knee Given 08/14/2023 10:46 AM CDT 80 mg Left Knee documented in this encounter Care Teams Bulk Mail Clerk Relationship Specialty Start Date End Date Asif Coto DO [address] [place] [address] PCP - General FAMILY PRACTICE 09/29/21 documented as of this encounter
--- OUTSIDE RECORDS SUMMARY | 2024-04-23 21:36 | XMS_ITS | Encounter Summary ---
Author Organization [facility] Address [address] [place] [address]. [place] [address] [place] [address] Care Team Providers Care Water Hauler Name Role Phone Nnamdi Asif GANDARA Primary Care Provider [phone] Encounter Details Date Type Department Care Team (Latest Contact Info) Description 11/05/2023 Travel Social History Tobacco Use Types Packs/Day Years Used Date Smoking Tobacco: Former Cigarettes Smokeless Tobacco: Never Alcohol Use Standard Drinks/Week Comments Not Currently 0 (1 standard drink = 0.6 oz pur e alcohol) Occassionaly. [facility] Utilities Answer Date Recorded In the past 12 months has [employer] gas, oil, or water [employer] threatened to shut off services in your [...] declined 02/26/2023 How often do you attend spiritism or adventism serv ices? Patient declined 02/26/2023 Do you belong to any clubs o r organizations such as spiritism groups, unions, fraternal or athletic groups, or [...] Recorded Patient Health Questionnaire-2 Score 0 02/26/2023 [facility] Occupat ional Health - Occupational [...] place to sleep or slept in a chcf (including now)? No 02/26/2023 Comments No Sex and Gender Information Value Date Recorded Sex Assigned at Female 08/07/2022 4:17 PM CDT Legal Sex Female 8:54 PM CDT Gender Identity Female 08/07/2022 4:17 PM CDT Sexual Orientation Straight 02/26/2023 1: 40 PM SUEDING MACHINE OPERATOR documented as of this encounter Functional Status [...] Date Author Status No 06/21/2023 11:27 AM SUEDING MACHINE OPERATOR Yanira Castellanos, RN Active documented in this encounter Plan of Treatment Upcoming Encounters Date Type Department Care Team (Late st Contact Info) Description 04/29/2024 1:45 PM SUEDING MACHINE OPERATOR Office Visit [facility] [address] [address] Sujatha Solis, [facility]- [address] [place] [address] [place] [address] documented as of this encounter Visit Diagnoses Not on filedocumented in this encounter Care Teams Water Hauler Relationship Specialty Start Date End Date Asif Coto DO [address] [place] [address] PCP - General FAMILY PRACTICE 09/29/21 documented as of this encounter
--- OUTSIDE RECORDS SUMMARY | 2024-04-23 21:36 | XMS_ITS | Encounter Summary ---
Author Organization [facility] Address [address] [place] [address]. [place] [address] [place] [address] Care Team Providers Care Ross Lift Operator Name Role Phone MushtaqAsif hanson Primary Care Provider [phone] Reason for Visit * Reason Comments Knee Pain RIGHT knee Encounter Details Date Type Department Care Team (Latest Contact Info) Description 09/07/2023 10:15 AM CDT Office Visit [facility] [address], [facility] 1 [place] [address] DriscollRoldan levy MD [address] [place] [address] Knee Pain (RIGHT knee) Social History Tobacco Use Types Packs/Day Years Used Date Smoking Tobacco: Former Cigarettes Smokeless Tobacco: Never Alcohol Use Standard Drinks/Week Comments Not Currently 0 (1 standard drink = 0.6 oz pur e alcohol) Occassionaly. [facility] Utilities Answer Date Recorded In the past 12 months has e [employer], gas, oil, or water [employer] threatened to shut off services in your [...] declined 02/26/2023 How often do you attend jewish or yarsani serv ices? Patient declined 02/26/2023 Do you belong to any clubs o r organizations such as jewish groups, unions, fraternal or athletic groups, or [...] Recorded Patient Health Questionnaire-2 Score 0 02/26/2023 [facility] Occupat ional Health - Occupational [...] place to sleep or slept in a nursing home (including now)? No 02/26/2023 Comments No Sex and Gender Information Value Date Recorded Sex Assigned at Female 08/07/2022 4:17 PM CDT Legal Sex Female 8:54 PM CDT Gender Identity Female 08/07/2022 4:17 PM CDT Sexual Orientation Straight 02/26/2023 1: 40 PM WINDLASSER documented as of this encounter Last Filed Vital Signs Vital Sign Reading Time Taken Comments Blood Pressure - - Pulse - - Temperature - - Respiratory Rate - - Oxygen Saturation - - Inhaled Oxygen Concentration - - Weight 70.3 kg (155 lb) 09/07/2023 10:19 AM CDT Height 165.1 cm (5' 5 ) 09/07/2023 10:19 AM CDT Body Mass Index 25.79 09/07/2023 10:19 AM CDT documented in this encounter Functional [...] documented in this encounter Progress Notes * Trinity Griffin RN - 09/07/2023 10:15 AM CDT Donna is a 67-year-old female who presents for Knee Pain (RIGHT knee) Patient here in clinic today to follow up on complaints of RIGHT knee pain. She has a history of having a RIGHT TKA on 03/29/2014 and states she is wanting to know why she is having so much pain. She locates her pain to anterior aspect of RIGHT knee with radiation at times of a sharp feeling up into the thigh. States it hurtsto bend the knee also. Denies night pain due to she takes a sleeping pill and muscle relaxer. Denies numbness and tingling. States she applies ice with some relief. Denies use of pain medication. Sheis here today ambulating with a cane. Denies having any recent therapy for RIGHT knee. She wears a knee brace at all times. She is retired. No additional nursing task documentation needed. Vitals: 09/07/23 1019 Weight: 70.3 kg (155 lb) Height: 1.651 [...] tablets (7.5 mg total) by mouth daily. meloxicam (MOBIC) 15 MG tablet Take 1 tablet (15 mg total) by mouth daily. metFORMIN ER [...] alternating nostrils until medical assistance becomes available [place]-3 Fatty Acids (FISH OIL) 500 MG capsule Take 1,000 mg by mouth daily. OZEMPIC 1 mg/dose injection (PEN) Inject into the skin once a week. pantoprazole EC (PROTONIX) 40 MG tablet Take 1 tablet (40 mg total) by mouth daily. TRUE METRIX BLOOD GLUCOSE TEST test strip TRUEplus Lancets 33G [facility] vitamin D3 (CHOLECALCIFEROL) 25 mcg tablet Take 1 tablet (25 mcg total) by mouth daily. Past Surgical History: Procedure Laterality Date BACK SURGERY x3 FOOT SURGERY Left 07/27/2022 FOOT SURGERY Right 2001 HIP ARTHROPLASTY Right 02/26/2023 KNEE ARTHROPLASTY Right 04/01/2014 PUMP INFILTRATION Left pain pump TOTAL HIP ARTHROPLASTY Left 06/21/2023 Dr. Rader Allergies 2-octylcyanoacrylate [cyanoacrylate] and Adhesive [vinyl] [x] Total Ozzr-xa-Pnnq Assessment Time: 0-15 minutes Additional Contributory Factors NONE * Roldan Rader MD - 09/07/2023 10:15 AM CDT Chief Complaint: Knee Pain (RIGHT knee) History of Present Illness: Donna Saunders is a 67-year-old female who presents to the office for Knee Pain (RIGHT knee) Patient here in clinic today to follow up on complaints of RIGHT knee pain. She has a history of having a RIGHT TKA on 03/29/2014 and states she is wanting to know why she is having so much pain. She locates her pain to anterior aspect of RIGHT knee with radiation at times of a sharp feeling up into the thigh. States it hurtsto bend the knee also. Denies night pain due to she takes a sleeping pill and muscle relaxer. Denies numbness and tingling. States she applies ice with some relief. Denies use of pain medication. Sheis here today ambulating with a cane. Denies having any recent therapy for RIGHT knee. She wears a knee brace at all times. She is retired. ROS: See HPI for pertinent positives Problem [...] 01/31/2023 Added automatically from request for surgery [id number] Past Surgical History: Procedure Laterality Date BACK [...] min Stress: No Stress Concern Present (02/26/2023) [facility] [place] [facility] - Occupational Stress Questionnaire Feeling of Stress : Not at all Social Connections: Unknown (02/26/2023) Social Connection and Isolation Panel [NHANES] Frequency of Communication with Friends and Family: Patient declined Frequency of Social Gatherings with Friends and Family: Patient declined Attends Judaism Services: Patient declined Active Member of Clubs [...] Last Year: No Medications: Current Outpatient Medications: amLODIPine 10 MG tablet, Take 1 tablet [...] mouth daily., Disp: 30 tablet, Rfl: 2 meloxicam (MOBIC) 15 MG tablet, Take 1 [...] becomes available, Disp: 1 each, Rfl: PRN [place]-3 Fatty Acids (FISH OIL) 500 MG capsule, Take 1,000 mg by mouth daily., Disp: , Rfl: OZEMPIC 1 mg/dose injection (PEN), Inject into the skin once a week., Disp: , Rfl: pantoprazole EC (PROTONIX) 40 MG tablet, Take 1 tablet (40 mg total) by mouth daily., Disp: , Rfl: TRUE METRIX BLOOD GLUCOSE TEST test strip, , Disp: , Rfl: TRUEplus Lancets 33G [facility], , Disp: , Rfl: vitamin D3 (CHOLECALCIFEROL) 25 mcg tablet, Take 1 tablet (25 mcg total) by mouth daily., Disp: , Rfl: Review of patient's allergies indicates: Allergen Reactions 2-Octylcyanoacrylate [Cyanoacrylate] Hives, Rash and Swelling Dermabond Adhesive [Vinyl] Rash and Swelling Possibly Dermabond adhesive, used after surgery Objective: Body mass index is 25.79 kg/m??. Last Recorded Weight 09/07/23 1019 Weight: 70.3 kg (155 lb) Physical exam: Constitutional: Alert and in no acute distress. Neurological: The patient was oriented to person, place, and time. Eyes: The sclera and conjunctiva were normal ENT: Hearing was normal. Neck: The appearance of the neck was normal. Cardiovascular: Normal pulses. Pulmonary: No respiratory distress. Skin: No injuries or skin lesion. Musculoskeletal: Right knee examination demonstrates no effusion or erythema. She has very good range of motion but diffuse tenderness with palpation. Antalgic gait. Good ligament stability. No hip pain and both hips demonstrate very nice range of motion Results: X-rays were reviewed and I do not see any obvious changes suggesting loosening. Implant alignment looks good Assessment: Encounter Diagnose(s) ICD-10-CM SNOMED CT(R) 1. 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 She is having increasing discomfort that is causing more functional limitations for her. I have recommended lab work torule out the likelihood of infection but I am suspicious that she has aseptic loosening consideringher symptoms. She does not want to do anything at this point and will plan to follow-up with Dr. Gibson ram in a couple of months Follow up: Return if symptoms worsen or fail to improve. ROLDAN RADER MD documented in this encounter Plan of Treatment Upcoming Encounters Date Type Department Care Team (Late st Contact Info) Description 04/29/2024 1:45 PM [place] Office Visit [place] [id number] Sujatha Solis, [facility]- [address] [place] [address] documented as of this encounter Visit Diagnoses Diagnosis Loose total knee arthroplasty, sequela- Primary documented in this encounter Care Teams Ross Lift Operator Relationship Specialty Start Date End Date Asif Coto DO [address] [place] [address] PCP - General FAMILY PRACTICE 09/29/21 documented as of this encounter
--- OUTSIDE RECORDS SUMMARY | 2024-04-23 21:36 | XMS_ITS | Encounter Summary ---
Author Organization [facility] Address [address] [place] [address]. [place] [address] [place] [address] Care Team Providers Care Commercial Technician Name Role Phone Mushtaqvalentin Asif GANDARA Primary Care Provider [phone] Encounter Details Date Type Department Care Team (Late st Contact Info) Description 11/05/2023 Orders Only [facility] [address] [place] [address] Abdoul Ventura Jr., DO [address] [place] [address] Social History Tobacco Use Types Packs/Day Years Used Date Smoking Tobacco: Former Cigarettes Smokeless Tobacco: Never Alcohol Use Standard Drinks/Week Comments Not Currently 0 (1 standard drink = 0.6 oz pur e alcohol) Occassionaly. [facility] Utilities Answer Date Recorded In the past 12 months has e [employer], gas, oil, or water [employer] threatened to shut off services in your [...] declined 02/26/2023 How often do you attend gnosticism or restoration serv ices? Patient declined 02/26/2023 Do you belong to any clubs o r organizations such as gnosticism groups, unions, fraternal or athletic groups, or [...] Recorded Patient Health Questionnaire-2 Score 0 02/26/2023 [facility] of Occupat ional Health - Occupational [...] place to sleep or slept in a [facility] (including now)? No 02/26/2023 Comments No Sex and Gender Information Value Date Recorded Sex Assigned at Female 08/07/2022 4:17 PM CDT Legal Sex Female 8:54 PM CDT Gender Identity Female 08/07/2022 4:17 PM CDT Sexual Orientation Straight 02/26/2023 1: 40 PM DISEASE CASE MANAGER documented as of this encounter Functional Status [...] Date Author Status No 06/21/2023 11:27 AM Yanria Michel RN Active documented in this encounter Plan of Treatment Upcoming Encounters Date Type Department Care Team (Late st Contact Info) Description 04/29/2024 1:45 PM DISEASE CASE MANAGER Office Visit [address] 1 [place], [place] [id number] Sujatha Solis, [facility] [address] [place] [address] [place] [address] documented as of this encounter Results * C-REACTIVE PROTEIN (11/14/2023 10:29 AM CDT) C-REACTIVE PROTEIN 0.14 <0.30 mg/dL 11/14/2023 10:44 AM CDT [facility] 11/14/2023 10:2 9 AM CDT us Abdoul Ventura Jr., DO LABORATORY Final Re sult [facility] [address] [place] [address], * (ABNORMAL) SED RATE, ERYTHROCYTE (ESR) (11/14/2023 10:29 AM CDT) ESR 23(H) 0 - 20 MM/HR 11/14/2023 11:40 AM CDT [facility] Comment:NOTE: ANEMIA, IF PRE SENT, MAY CAUSE AN ELEVATED SEDIMENTATION RATE. 11/14/2023 10:2 9 AM CDT us Abdoul Ventura Jr., DO LABORATORY Final Re sult [facility] [address] [place] [address], documented in this encounter Visit Diagnoses Diagnosis Pain due to total right knee replacement, initial encounter (CMS/[facility])- Primary documented in this encounter Care Teams Commercial Technician Relationship Specialty Start Date End Date Asif Coto DO [facility] [place] [address] PCP - General FAMILY PRACTICE 09/29/21 documented as of this encounter
--- OUTSIDE RECORDS SUMMARY | 2024-04-23 21:36 | XMS_ITS | Encounter Summary ---
Author Organization [facility] Address [address] [place] [address]. [place] [address] [place] [address] Care Team Providers Care Cement Or Concrete Finishing Supervisor Name Role Phone MushtaqAsif hanson Primary Care Provider [phone] Encounter Details Date Type Department Care Team (Latest Contact Info) Description 07/10/2023 3:00 PM CDT - 07/10/2023 11:59 PM T Hospital Encounter [facility] [address] [place] [address] Roldan Rader MD [address] [place] [address] Discharge Disposition: Home or Self Care (Routine Discharge) Social History Tobacco Use Types Packs/Day Years Used Date Smoking Tobacco: Former Cigarettes Smokeless Tobacco: Never Alcohol Use Standard Drinks/Week Comments Not Currently 0 (1 standard drink = 0.6 oz pur e alcohol) Occassionaly. [facility] Utilities Answer Date Recorded In the past 12 months has e electric, gas, oil, or water [employer] threatened to shut off services in your home? No 02/26/2023 Humiliation, Afraid, Rape, and Kick questionnair e Answer Date Recorded Within the last year, have y ou been afraid of your partner or ex-partner? No 02/26/2023 Within the last year, have y ou been humiliated or emotionally abused in other ways by your partner or ex-partner? No 11 / Within the last year, have y ou [...] declined 02/26/2023 How often do you attend hindu or rastafarian serv ices? Patient declined 02/26/2023 Do you belong to any clubs o r organizations such as hindu groups, unions, fraternal or athletic groups, or [...] Patient Health Questionnaire-2 Score 0 02/26/2023 [facility] - Occupational Stress Questionnaire Answer Date Recorded [...] Sexual Orientation Straight 02/26/2023 1: 40 PM BIT SANDER documented as of this encounter Functional Status [...] by mouth 2 (two) times a day. [place]-3 Fatty Acids (FISH OIL) 500 MG capsule [...] tablet (25 mcg total) by mouth daily. meloxicam (MOBIC) 15 MG tabletIndications:S tatus post [...] for Pain. Indications: Chronic Pain 30 tablet 07/06/2023 07/16/19 24 documented as of this encounter Plan of Treatment Upcoming Encounters Date Type Department Care Team (Late st Contact Info) Description 04/29/2024 1:45 PM BIT SANDER Office Visit [facility] [address] [place] [address] Sujatha Solis, OCCUPATIONAL THERAPY INSTRUCTOR- [address] [place] [address] documented as of this encounter Procedures Procedure Name Priority Date/Time Associated Diagnosis Comments XR PELVIS AP+LT HIP 1V Routine 07/10/2023 3:33 PM CDT Follow-up examination after orthopedic surgery documented in this encounter Results * XR PELVIS AP+LT HIP 1V (07/10/2023 3:33 PM CDT) Anatomical Region Laterality Modality Pelvis, Hip Radiographic Chanel ging 07/11/2023 10:1 7 AM CDT Impressions 07/11/2023 10:19 AM CDT IMPRESSION: Bipolar left hip prosthesis. Stable appearance of the proximal left femur as compared back to July 01 and June 21, 2023. Ordered By: ROLDAN RADER Interpreted By: Larry Abel MD, 07/11/2023 10:17 AM Narrative 07/11/2023 10:19 AM CDT Procedure(s): XR PELVIS AP+LT HIP 1V Date of service: 07/10/2023 3:26 PM Provided clinical information: 67 years, Female, Left hip pain ?? Procedure and materials: Frog-leg view left hip, view of the inferior pelvis. Comparison studies: July 02, 2023. Findings: ?? 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 About the proximal femur there is a slight lucency that is present subadjacent to the femoral stem component. This unchanged compared back to prior examination. This may be postsurgical in etiology. This is unchanged from the postoperative radiograph of June 21, 2023. Procedure Note Larry Abel MD - 07/11/2023 Procedure(s): XR PELVIS AP+LT HIP 1V Date of service: 07/10/2023 3:26 PM Provided clinical information: 67 years, Female, Left hip pain Procedure and materials: Frog-leg view left hip, view of the inferiorpelvis. Comparison studies: July 02, 2023. 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 About the proximal femurthere is a slight lucency that is present subadjacent to the femoral stemcomponent. This unchanged compared back to prior examination. This may bepostsurgical in etiology. This is unchanged from the postoperativeradiograph of June 21, 2023. IMPRESSION: Bipolar left hip prosthesis. Stable appearance of the proximal left femuras compared back to July 01 and June 21, 2023. Ordered By: ROLDAN RADER Interpreted By: Larry Abel MD, 07/11/2023 10:17 AM us Roldan Rader MD GENERAL IMAGING Final Result documented in this encounter Visit Diagnoses Diagnosis Follow-up examination after orthopedic surgery Follow-up examination, following other surgery documented in this encounter Care Teams Cement Or Concrete Finishing Supervisor Relationship Specialty Start Date End Date Asif Coto DO [address] [place] [address] PCP - General FAMILY PRACTICE 09/29/21 documented as of this encounter
--- OUTSIDE RECORDS SUMMARY | 2024-04-23 21:36 | XMS_ITS | Encounter Summary ---
Author Organization [facility] Address [address] [place] [address]. [place] [address] [place] [address] Care Team Providers Care Filament Welder Name Role Phone Nnamdi Asif GANDARA Primary Care Provider [phone] Encounter Details Date Type Department Care Team (Latest Contact Info) Description 01/22/2024 Travel Social History Tobacco Use Types Packs/Day Years Used Date Smoking Tobacco: Former Cigarettes Smokeless Tobacco: Never Alcohol Use Standard Drinks/Week Comments Not Currently 0 (1 standard drink = 0.6 oz pur e alcohol) Occassionaly. [facility] Utilities Answer Date Recorded In the past 12 months has [employer], gas, oil, or water [employer] threatened to shut off services in your [...] How often do you attend gnosticism or orthodox serv ices? Patient declined 02/26/2023 [...] Recorded Patient Health Questionnaire-2 Score 0 02/26/2023 [facility] of Occupat ional Health [...] to sleep or slept in a senior living (including now)? No 02/26/2023 Comments No Sex and Gender Information Value Date Recorded Sex Assigned at Female 08/07/2022 4:17 PM CDT Legal Sex Female 8:54 PM CDT Gender Identity Female 08/07/2022 4:17 PM CDT Sexual Orientation Straight 02/26/2023 1: 40 PM SCHOOL PATROL documented as of this encounter Functional Status [...] Date Author Status No 06/21/2023 11:27 AM SCHOOL PATROL Yanira Castellanos, RN Active documented in this encounter Plan of Treatment Upcoming Encounters Date Type Department Care Team (Late st Contact Info) Description 04/29/2024 1:45 PM SCHOOL PATROL Office Visit [facility] [address] [address] Sujatha Solis, [facility]- [address] [place] [address] [place] [address] documented as of this encounter Visit Diagnoses Not on filedocumented in this encounter Care Teams Filament Welder Relationship Specialty Start Date End Date Asif Coto DO [address] [place] [address] PCP - General FAMILY PRACTICE 09/29/21 documented as of this encounter
--- OUTSIDE RECORDS SUMMARY | 2024-04-23 21:36 | XMS_ITS | Encounter Summary ---
Author Organization [facility] Address [address] [place] [address]. [place] [address] [place] [address] Care Team Providers Care Analysis Director Name Role Phone Nnamdi Asif GANDARA Primary Care Provider [phone] Encounter Details Date Type Department Care Team (Latest Contact Info) Description 09/07/2023 Travel Social History Tobacco Use Types Packs/Day Years Used Date Smoking Tobacco: Former Cigarettes Smokeless Tobacco: Never Alcohol Use Standard Drinks/Week Comments Not Currently 0 (1 standard drink = 0.6 oz pur e alcohol) Occassionaly. [facility] Utilities Answer Date Recorded In the past 12 months has [employer], gas, oil, or water [employer] threatened to shut off services in your [...] declined 02/26/2023 How often do you attend yarsanism or buddhist serv ices? Patient declined 02/26/2023 Do you belong to any clubs o r organizations such as yarsanism groups, unions, fraternal or athletic groups, or [...] Recorded Patient Health Questionnaire-2 Score 0 02/26/2023 [facility] Occupat ional Health - Occupational Stress [...] place to sleep or slept in a [place] health [place] facility (including now)? No 02/26/2023 Comments No Sex and Gender Information Value Date Recorded Sex Assigned at Female 08/07/2022 4:17 PM CDT Legal Sex Female 8:54 PM CDT Gender Identity Female 08/07/2022 4:17 PM CDT Sexual Orientation Straight 02/26/2023 1: 40 PM INTERVENTIONAL RADIOLOGY TECHNOLOGIST documented as of this encounter Functional Status [...] Date Author Status No 06/21/2023 11:27 AM INTERVENTIONAL RADIOLOGY TECHNOLOGIST Yanira Castellanos, RN Active documented in this encounter Plan of Treatment Upcoming Encounters Date Type Department Care Team (Late st Contact Info) Description 04/29/2024 1:45 PM INTERVENTIONAL RADIOLOGY TECHNOLOGIST Office Visit [facility] [address] [address] Sujatha Solis, [facility]- [address] [place] [address] [place] [address] documented as of this encounter Visit Diagnoses Not on filedocumented in this encounter Care Teams Analysis Director Relationship Specialty Start Date End Date Asif Coto DO [address] [place] [address] PCP - General FAMILY PRACTICE 09/29/21 documented as of this encounter
--- OUTSIDE RECORDS SUMMARY | 2024-04-23 21:36 | XMS_ITS | Encounter Summary ---
Author Organization [facility] Address [address] [place] [address]. [place] [address] [place] [address] Care Team Providers Care Senior Python Developer Name Role Phone MushtaqAsif hanson Primary Care Provider [phone] Encounter Details Date Type Department Care Team (Late st Contact Info) Description 09/07/2023 Orders Only [facility] [address] [place] [address], [facility] [address] [place] [address] Roldan Rader MD [address] [place] [address] Social History Tobacco Use Types Packs/Day Years Used Date Smoking Tobacco: Former Cigarettes Smokeless Tobacco: Never Alcohol Use Standard Drinks/Week Comments Not Currently 0 (1 standard drink = 0.6 oz pur e alcohol) Occassionaly. [facility] Utilities Answer Date Recorded In the past 12 months has [employer], gas, oil, or water [email or web address] threatened to shut off services in your [...] declined 02/26/2023 How often do you attend gnosticist or zoroastrianism serv ices? Patient declined 02/26/2023 Do you belong to any clubs o r organizations such as gnosticist groups, unions, fraternal or athletic groups, or [...] Recorded Patient Health Questionnaire-2 Score 0 02/26/2023 [facility] Occupat ional Health - Occupational Stress [...] Sexual Orientation Straight 02/26/2023 1: 40 PM FEED MIXER HELPER documented as of this encounter Functional [...] Assessment Author Status No 06/21/2023 11:27 AM FEED MIXER HELPER Yanira Castellanso RN Active documented as of this encounter Mental Status * Because of a physical, mental, or emotional condition, do you have serious difficulty concentrating, remembering, or making decisions? Answer Entry Date Author Status No 06/21/2023 11:27 AM FEED MIXER HELPER Yanira Castellanos RN Active documented in this encounter Plan of Treatment Upcoming Encounters Date Type Department Care Team (Late st Contact Info) Description 04/29/2024 1:45 PM FEED MIXER HELPER Office Visit [address] [address] Sujatha Solis, [facility]- [address] [place] [address] [place] [address] documented as of this encounter Visit Diagnoses Diagnosis Orthopedic aftercare Unspecified orthopedic aftercare documented in this encounter Care Teams Senior Python Developer Relationship Specialty Start Date End Date Asif Coto DO [address] [place] [address] PCP - General FAMILY PRACTICE 09/29/21 documented as of this encounter
--- OUTSIDE RECORDS SUMMARY | 2024-04-23 21:36 | XMS_ITS | Encounter Summary ---
Author Organization [facility] Address [address] [place] [address]. [place] [address] [place] [address] Care Team Providers Care Zoo Veterinarian Name Role Phone MushtaqAsif hanson Primary Care Provider [phone] Encounter Details Date Type Department Care Team (Latest Contact Info) Description 08/14/2023 10:15 AM CDT - 08/14/2023 11:[address] [facility] Hospital Encounter [facility] Diagnostic Imaging [address] [place] [address] Roldan Rader MD [address] [place] [address] Discharge Disposition: Home or Self Care (Routine Discharge) Social History Tobacco Use Types Packs/Day Years Used Date Smoking Tobacco: Former Cigarettes Smokeless Tobacco: Never Alcohol Use Standard Drinks/Week Comments Not Currently 0 (1 standard drink = 0.6 oz pur e alcohol) Occassionaly. [facility] Utilities Answer Date Recorded In the past 12 months has e electric, gas, oil, or water [employer] threatened to shut off services in your [...] declined 02/26/2023 How often do you attend bahai or buddhism serv ices? Patient declined 02/26/2023 Do you belong to any clubs o r organizations such as bahai groups, unions, fraternal or athletic groups, or [...] Recorded Patient Health Questionnaire-2 Score 0 02/26/2023 [facility] - Occupational Stress Questionnaire Answer Date [...] Sexual Orientation Straight 02/26/2023 1: 40 PM GRAPPLER documented as of this encounter Functional Status [...] Author Status No 06/21/2023 11:27 AM Yanira iMchel RN Active documented in this encounter Medications [...] by mouth 2 (two) times a day. [place]-3 Fatty Acids (FISH OIL) 500 MG capsule [...] total) by mouth daily. 30 tablet 2 07/25/2023 11/05/19 24 meloxicam (MOBIC) 15 MG tabletIndications:P rimary osteoarthritis of left knee Take 1 tablet (15 mg total) by mouth daily. 30 tablet 2 08/14/2023 01/22/20 24 naloxone (NARCAN) 4 MG/0.1ML nasal spray 1 spray by Nasal route as needed for Opioid reversal. may repeat every 2 to 3 minutes in alternating nostrils until medical assistance becomes available 1 each 02/27/2023 02/27/20 24 documented as of this encounter Plan of Treatment Upcoming Encounters Date Type Department Care Team (Late st Contact Info) Description 04/29/2024 1:45 PM GRAPPLER Office Visit [facility] [address] [address] Sujatha Solis, ANIMAL CRUELTY INVESTIGATOR- [address] [facility] [place] [address] documented as of this encounter Procedures Procedure Name Priority Date/Time Associated Diagnosis Comments XR PELVIS AP+LT HIP 1V Routine 08/14/2023 10:26 AM CDT Status post total replacement [...] By: Júnior Berg MD, 08/14/2023 2:51 PM us Roldan Rader MD GENERAL IMAGING Final Result documented in this encounter Visit Diagnoses Diagnosis Status post total replacement of left hip documented in this encounter Care Teams Zoo Veterinarian Relationship Specialty Start Date End Date Asif Coto DO [address] [place] [address] PCP - General FAMILY PRACTICE 09/29/21 documented as of this encounter
--- OUTSIDE RECORDS SUMMARY | 2024-04-23 21:36 | XMS_ITS | Encounter Summary ---
Author Organization [facility] Address [address] [place] [address]. [place] [address] [place] [address] Care Team Providers Care Machine Shop Specialist Name Role Phone MushtaqAsif hanson Primary Care Provider Reason for Visit * Reason Comments Postop Followup DOS:06/21/2023- LEFT total hip arthroplasty Encounter Details Date Type Department Care Team (Latest Contact Info) Description 07/10/2023 3:00 PM CDT Office Visit [facility] [address], [address] [address] Roldan Rdaer MD [address] [place], [place] [id number] Postop Followup (DOS:06/21/2023- LEFT total hip arthroplasty) Social History Tobacco Use Types Packs/Day Years Used Date Smoking Tobacco: Former Cigarettes Smokeless Tobacco: Never Tobacco Cessation:Counseling Given: Not Answered Alcohol Use Standard Drinks/Week Comments Not Currently 0 (1 standard drink = 0.6 oz pur e alcohol) Occassionaly. [facility] Utilities Answer Date Recorded In the past 12 months has e [employer], gas, oil, or water [employer] threatened to shut off services in your [...] declined 02/26/2023 How often do you attend baptism or yazdanism serv ices? Patient declined 02/26/2023 Do you belong to any clubs o r organizations such as baptism groups, unions, fraternal or athletic groups, or [...] Recorded Patient Health Questionnaire-2 Score 0 02/26/2023 [place] [place] [facility] - Occupational Stress [...] place to sleep or slept in a correction (including now)? No 02/26/2023 Comments No Sex and Gender Information Value Date Recorded Sex Assigned at Female 08/07/2022 4:17 PM CDT Legal Sex Female 8:54 PM CDT Gender Identity Female 08/07/2022 4:17 PM CDT Sexual Orientation Straight 02/26/2023 1: 40 PM ORACLE IAM CONSULTANT documented as of this encounter Last Filed Vital Signs Vital Sign Reading Time Taken Comments Blood Pressure - - Pulse - - Temperature - - Respiratory Rate - - Oxygen Saturation - - Inhaled Oxygen Concentration - - Weight 70.3 kg (155 lb) 07/10/2023 3:11 PM CDT Height 165.1 cm (5' 5 ) 07/10/2023 3:11 PM CDT Body Mass Index 25.79 07/10/2023 3:11 PM CDT documented in this encounter Functional Status [...] documented in this encounter Progress Notes * Maylin Dougherty MA - 07/10/2023 3:00 PM CDT Donna is a 67-year-old female who presents for Postop Followup (DOS:06/21/2023- LEFT total hip arthroplasty) Patient presents to clinic today for postop follow up of LEFT hip arthroplasty. She reports pain tothe lateral aspect of her LEFT hip occasionally radiating to her groin area. She reports numbness from her hip to her knee. She denies tingling, bruising and swelling. She attends physical therapy [facility] in [place], she has completed physical therapy. She takes Oxycodone PRN for pain. She deniesnight pain. She uses ice PRN. She uses rolling walker to ambulate. She is retired. No additional nursing task documentation needed. Vitals: 07/10/23 1511 Weight: 70.3 kg (155 lb) Height: 1.651 [...] alternating nostrils until medical assistance becomes available [place]-3 Fatty Acids (FISH OIL) 500 MG capsule [...] GLUCOSE TEST test strip TRUEplus Lancets 33G [facility] vitamin D3 (CHOLECALCIFEROL) 25 mcg tablet Take [...] 2-octylcyanoacrylate [cyanoacrylate] and Adhesive [vinyl] [x] Total Qyas-dv-Pflx Assessment Time: 0-15 minutes Additional Contributory Factors NONE * Roldan Rader MD - 07/10/2023 3:00 PM CDT Chief Complaint: Postop Followup (DOS:06/21/2023- LEFT total hip arthroplasty) History of Present Illness: Donna Saunders is a 67-year-old female who presents to the office for Postop Followup (DOS:06/21/2023- LEFT total hip arthroplasty) Patient presents to clinic today for postop follow up of LEFT hip arthroplasty. She reports pain tothe lateral aspect of her LEFT hip occasionally radiating to her groin area. She reports numbness from her hip to her knee. She denies tingling, bruising and swelling. She attends physical therapy [facility] in [place], she has completed physical therapy. She takes Oxycodone PRN for pain. She deniesnight pain. She uses ice PRN. She uses rolling walker to ambulate. She is retired. ROS: See HPI for [...] 01/31/2023 Added automatically from request for surgery [id number] Past Surgical History: Procedure Laterality Date BACK SURGERY x3 FOOT SURGERY Left 07/27/2022 FOOT SURGERY Right 2001 HIP ARTHROPLASTY Right 02/26/2023 KNEE ARTHROPLASTY Right 04/01/2014 PUMP INFILTRATION Left pain pump TOTAL HIP ARTHROPLASTY Left 06/21/2023 Dr. Rader TOTAL KNEE ARTHROPLASTY Left 06/21/2023 Family History Problem Relation Name Age of Onset Other (heart problems) Mother Cancer Father Thyroid Disease Other Family Status Relation Name Status Mother Father Other (Not Specified) Social History Socioeconomic History Marital status: Tobacco Use Smoking status: Former Types: Cigarettes Smokeless tobacco: Never Vaping Use Vaping Use: Never used Substance and Sexual Activity Alcohol use: Not [...] min Stress: No Stress Concern Present (02/26/2023) [facility] [place] [facility] Occupational [facility] - Occupational Stress Questionnaire Feeling of Stress : Not at all Social Connections: Unknown (02/26/2023) Social Connection and Isolation Panel [NHANES] Frequency of Communication with Friends and Family: Patient declined Frequency of Social Gatherings with Friends and Family: Patient declined Attends Roman Catholic Services: Patient declined Active Member of Clubs [...] becomes available, Disp: 1 each, Rfl: PRN [place]-3 Fatty Acids (FISH OIL) 500 MG capsule, Take 1,000 mg by mouth daily., Disp: , Rfl: oxyCODONE-acetaminophen (PERCOCET) 5-325 MG tablet, Take 1 tablet by mouth every 6 (six) hours as needed for Pain. Indications: Chronic Pain, Disp: 30 tablet, Rfl: 0 OZEMPIC 1 mg/dose injection (PEN), Inject into the skin once a week., Disp: , Rfl: pantoprazole EC (PROTONIX) 40 MG tablet, Take 1 tablet (40 mg total) by mouth daily., Disp: , Rfl: TRUE METRIX BLOOD GLUCOSE TEST test strip, , Disp: , Rfl: TRUEplus Lancets 33G [facility], , Disp: , Rfl: vitamin D3 (CHOLECALCIFEROL) 25 mcg tablet, Take 1 tablet (25 mcg total) by mouth daily., Disp: , Rfl: Review of patient's allergies indicates: Allergen Reactions 2-Octylcyanoacrylate [Cyanoacrylate] Hives, Rash and Swelling Dermabond Adhesive [Vinyl] Rash and Swelling Possibly Dermabond adhesive, used after surgery Objective: Body mass index is 25.79 kg/m??. Last Recorded Weight 07/10/23 1511 Weight: 70.3 kg (155 lb) Physical exam: Constitutional: Alert and in no acute distress. Neurological: The patient was oriented to person, place, and time. Eyes: The sclera and conjunctiva were normal ENT: Hearing was normal. Neck: The appearance of the neck was normal. Cardiovascular: Normal pulses. Pulmonary: No respiratory distress. Skin: No injuries or skin lesion. Musculoskeletal: Left hip incision is healing nicely without erythema or drainage. She has some tenderness with palpation of that region. Hip range of motion is good and external rotation produces lateral hip pain. She is walking with a walker with mild gait disturbance. Decreased sensation is described in the thigh region. Negative Trendelenburg Results: X-ray demonstrates symmetric leg lengths. The left Is a little abducted but total hip arthroplasty position is satisfactory Assessment: Encounter Diagnose(s) ICD-10-CM SNOMED CT(R) 1. Status post total replacement of left hip Z96.642 HISTORY OF TOTAL HIP ARTHROPLASTY Plan: Patient recently started physical therapy. She feels like she is behind compared to her progress after her right hip replacement. She struggled with the reaction to Dermabond postoperatively but her incision is looking excellent today. She was taking antibiotics as a precaution but that was finished last week sometime. She will continue with physical therapy and I will see her back in a month Follow up: Return in about 4 weeks (around 08/07/2023). ROLDAN RADER MD documented in this encounter Plan of Treatment Upcoming Encounters Date Type Department Care Team (Late st Contact Info) Description 04/29/2024 1:45 PM ORACLE IAM CONSULTANT Office Visit [facility] [place] [address] [facility] [place] [address] Sujatha Solis, [facility] [address] [place] [address] [place] [address] documented as of this encounter Visit Diagnoses Diagnosis Status post total replacement of left hip- Primary documented in this encounter Care Teams Machine Shop Specialist Relationship Specialty Start Date End Date Asif Coto DO [address] [place] [address] PCP - General FAMILY PRACTICE 09/29/21 documented as of this encounter
--- OUTSIDE RECORDS SUMMARY | 2024-04-23 21:36 | XMS_ITS | Encounter Summary ---
Author Organization [facility] Address [address] [place] [address]. [place] [address] [place] [address] Care Team Providers Care Town Planner Name Role Phone Mushtaqvalentin Asif GANDARA Primary Care Provider [phone] Reason for Visit * Reason Comments Injection RIGHT knee Encounter Details Date Type Department Care Team (Latest Contact Info) Description 08/24/2023 9:00 AM CDT Office Visit [facility] [address] [place] [address] Candida Padron PA [address] [place] [address] Injection (RIGHT knee) Social History Tobacco Use Types Packs/Day Years Used Date Smoking Tobacco: Former Cigarettes Smokeless Tobacco: Never Tobacco Cessation:Counseling Given: Not Answered Alcohol Use Standard Drinks/Week Comments Not Currently 0 (1 standard drink = 0.6 oz pur e alcohol) Occassionaly. [facility] Utilities Answer Date Recorded In the past 12 months has e electric, gas, oil, or water [employer] threatened to shut off services in your [...] declined 02/26/2023 How often do you attend hinduism or methodist serv ices? Patient declined 02/26/2023 Do you belong to any clubs o r organizations such as hinduism groups, unions, fraternal or athletic groups, or [...] Recorded Patient Health Questionnaire-2 Score 0 02/26/2023 [place] of Occupat ional Health - Occupational Stress [...] Sexual Orientation Straight 02/26/2023 1: 40 PM LEAN MANUFACTURING SPECIALIST documented as of this encounter Last Filed Vital Signs Vital Sign Reading Time Taken Comments Blood Pressure - - Pulse - - Temperature - - Respiratory Rate - - Oxygen Saturation - - Inhaled Oxygen Concentration - - Weight 70.3 kg (155 lb) 08/24/2023 9:01 AM CDT Height 165.1 cm (5' 5 ) 08/24/2023 9:01 AM CDT Body Mass Index 25.79 08/24/2023 9:01 AM CDT documented in this encounter Functional [...] Progress Notes * Maylin Dougherty MA - 08/24/2023 9:00 AM CDT Donna is a 67-year-old female who presents for Injection (RIGHT knee) Patient presents to clinic today for RIGHT knee injection. Patient had RIGHT knee replacement on 04/01/[address] Iván Josue. She reports to the medial and lateral aspects of her RIGHT knee. She denies numbness,tingling and bruising. She reports swelling. She reports walking causes pain to worsen. She reports night pain. She does not use ice or heat. She does not take medication for pain. She wears knee brace she bought at [employer]. She uses cane to ambulate. She is retired. No additional nursing task documentation needed. Vitals: 08/24/23 0901 Weight: 70.3 kg (155 lb) Height: 1.651 [...] alternating nostrils until medical assistance becomes available [place]-3 Fatty Acids (FISH OIL) 500 MG capsule Take 1,000 mg by mouth daily. OZEMPIC 1 mg/dose injection (PEN) Inject into the skin once a week. pantoprazole EC (PROTONIX) 40 MG tablet Take 1 tablet (40 mg total) by mouth daily. TRUE METRIX BLOOD GLUCOSE TEST test strip TRUEplus Lancets 33G [facility] vitamin D3 (CHOLECALCIFEROL) 25 mcg tablet Take 1 tablet (25 mcg total) by mouth daily. Past Surgical History: Procedure Laterality Date BACK SURGERY x3 FOOT SURGERY Left 07/27/2022 FOOT SURGERY Right 2001 HIP ARTHROPLASTY Right 02/26/2023 KNEE ARTHROPLASTY Right 04/01/2014 PUMP INFILTRATION Left pain pump TOTAL HIP ARTHROPLASTY Left 06/21/2023 Dr. Rader Allergies 2-octylcyanoacrylate [cyanoacrylate] and Adhesive [vinyl] [x] Total Apqb-ca-Behl Assessment Time: 0-15 minutes Additional Contributory Factors NONE * DEON Desai - 08/24/2023 9:00 AM CDT Chief Complaint: Injection (RIGHT knee) History of Present Illness: Donna Saunders is a 67-year-old female who presents to the office for Injection (RIGHT knee) Patient presents to clinic today for RIGHT knee injection. Patient had RIGHT knee replacement on 04/01/[address] Iván Josue. She reports to the medial and lateral aspects of her RIGHT knee. She denies numbness,tingling and bruising. She reports swelling. She reports walking causes pain to worsen. She reports night pain. She does not use ice or heat. She does not take medication for pain. She wears knee brace she bought at [employer]. She uses cane to ambulate. She is retired. 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 History of total right hip arthroplasty Aftercare following left hip joint replacement surgery History: Past Medical History: Diagnosis Date Aphthous stomatitis Chronic back pain Diabetes ([facility]/HCC) Hypertension Hypothyroidism, unspecified Mixed hyperlipidemia Osteoarthritis of right hip 02/26/2023 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 01/31/2023 Added automatically from request for surgery [id number] Past Surgical History: Procedure Laterality Date BACK [...] min Stress: No Stress Concern Present (02/26/2023) [place] [facility]ational [facility] - Occupational Stress Questionnaire Feeling of Stress : Not at all Social Connections: Unknown (02/26/2023) Social Connection and Isolation Panel [NHANES] Frequency of Communication with Friends and Family: Patient declined Frequency of Social Gatherings with Friends and Family: Patient declined Attends Spiritism Services: Patient declined Active Member of Clubs [...] mouth nightly at bedtime., Disp: , Rfl: [facility] Natural Products (OSTEO BI-FLEX ADV TRIPLE ST) Tab, Take 1 tablet by mouth 2 (two) times a day., Disp: , Rfl: naloxone (NARCAN) 4 MG/0.1ML nasal spray, 1 spray by Nasal route as needed for Opioid reversal. mayrepeat every 2 to 3 minutes in alternating nostrils until medical assistance becomes available, Disp: 1 each, Rfl: PRN [place]-3 Fatty Acids (FISH OIL) 500 MG capsule, Take 1,000 mg by mouth daily., Disp: , Rfl: OZEMPIC 1 mg/dose injection (PEN), Inject into the skin once a week., Disp: , Rfl: pantoprazole EC (PROTONIX) 40 MG tablet, Take 1 tablet (40 mg total) by mouth daily., Disp: , Rfl: TRUE METRIX BLOOD GLUCOSE TEST test strip, , Disp: , Rfl: TRUEplus Lancets 33G [facility], , Disp: , Rfl: vitamin D3 (CHOLECALCIFEROL) 25 mcg tablet, Take 1 tablet (25 mcg total) by mouth daily., Disp: , Rfl: Review of patient's allergies indicates: Allergen Reactions 2-Octylcyanoacrylate [Cyanoacrylate] Hives, Rash and Swelling Dermabond Adhesive [Vinyl] Rash and Swelling Possibly Dermabond adhesive, used after surgery Objective: Body mass index is 25.79 kg/m??. Last Recorded Weight 08/24/23 09 Weight: 70.3 kg (155 lb) Physical exam: Constitutional: Alert and in no acute distress. Neurological: The patient was oriented to person, place, and time. Eyes: The sclera and conjunctiva were normal ENT: Hearing was normal. Neck: The appearance of the neck was normal. Cardiovascular: Normal pulses. Pulmonary: No respiratory distress. Skin: No injuries or skin lesion. Musculoskeletal: Examination of the right knee demonstrates no erythema, ecchymosis, or swelling. There is tenderness to palpation over the lateral aspect of knee near the IT band and surrounding thepatella. Range of motion just short of full extension and flexion to 90??. No joint effusion. No laxity with stress to the joint. Normal gait ambulating with cane. Neurovascularly intact distally with palpable pedal pulse. Results: X-rays of the right knee from today compared to 01/30/23 x-rays demonstrate small and questionable area of loosening to the tibial component of the total knee arthroplasty with increased distance between the anterior tibia and tibial component. There are no acute or healing fractures or dislocations. Assessment: Encounter Diagnose(s) ICD-10-CM SNOMED CT(R) 1. Pain due to total right knee replacement, initial encounter ([facility]) T84.84XA PAIN ASSOCIATED WITH PROSTHESIS OF KNEE JOINT Z96.651 Plan: Reviewed imaging in office with patient today. She reports a history of pain to her right knee thathas been ongoing ever since she had it replaced in 2013. Recently, after performing increased activity with squatting and gardening work on her bent knees, she experienced a significant increase in knee pain to the point that she reported she was unable to walk for 2 days. She does report episodes of increased intermittent swelling to the knee, but no effusion is present on exam today. I did offer to send her for laboratory collection of CBC, ESR, and CRP to rule out infection. Patient declinedlaboratory studies at this time, stating she would like to limit her activities to see if the pain r esolves. It is most likely that her increased activity led to the increased pain to her knee. However, we did discuss the possibility of hardware failure/loosening versus infection. Patient was educated on signs of infection and will contact our office if her symptoms change. I would like to patient to be evaluated by Dr. Rader in 2 weeks. She is released to activities as tolerated. Follow up: Return in about 2 weeks (around 09/07/2023). DEON Desai Cosigned by Roldan Rader MD at 09/06/2023 3:53 PM CDT documented in this encounter Plan of Treatment Upcoming Encounters Date Type Department Care Team (Late st Contact Info) Description 04/29/2024 1:45 PM LEAN MANUFACTURING SPECIALIST Office Visit [address] [address] Sujatha Solis, EQUINE SCIENCE INSTRUCTOR-[address] [place] [address] documented as of this encounter Visit Diagnoses Diagnosis Pain due to total right knee replacement, initial encounter ([facility])- Primary documented in this encounter Care Teams Town Planner Relationship Specialty Start Date End Date Asif Coto DO [address] [place] [address] PCP - General FAMILY PRACTICE 09/29/21 documented as of this encounter
--- OUTSIDE RECORDS SUMMARY | 2024-04-23 21:36 | XMS_ITS | Encounter Summary ---
Author Organization [facility] Address [address] [place] [address]. [place] [address] [place] [address] Care Team Providers Care Steel Worker Name Role Phone Mushtaqvalentin Asif GANDARA Primary Care Provider [phone] Reason for Visit * Reason Onset Date Comments Information 07/16/2023 Encounter Details Date Type Department Care Team (Late st Contact Info) Description 07/16/2023 Telephone [facility] [address], [facility] [address] [place] [address] Sujatha Solis, [facility] [address] [place] [address] [place] [address] Information Social History Tobacco Use Types Packs/Day Years Used Date Smoking Tobacco: Former Cigarettes Smokeless Tobacco: Never Alcohol Use Standard Drinks/Week Comments Not Currently 0 (1 standard drink = 0.6 oz pur e alcohol) Occassionaly. [facility] Utilities Answer Date Recorded In the past 12 months has e [employer], gas, oil, or water [employer] threatened to shut off services in your [...] declined 02/26/2023 How often do you attend orthodoxy or orthodox serv ices? Patient declined 02/26/2023 Do you belong to any clubs o r organizations such as orthodoxy groups, unions, fraternal or athletic groups, or [...] Recorded Patient Health Questionnaire-2 Score 0 02/26/2023 [facility] ional [facility] - [...] place to sleep or slept in a long term (including now)? No 02/26/2023 Comments No Sex and Gender Information Value Date Recorded Sex Assigned at Female 08/07/2022 4:17 PM CDT Legal Sex Female 8:54 PM CDT Gender Identity Female 08/07/2022 4:17 PM CDT Sexual Orientation Straight 02/26/2023 1: 40 PM [employer] documented as of this encounter Functional Status [...] Assessment Author Status No 06/21/2023 11:27 AM [employer] Yanira Castellanos RN Active documented as of this encounter Mental Status * Because of a physical, mental, or emotional condition, do you have serious difficulty concentrating, remembering, or making decisions? Answer Entry Date Author Status No 06/21/2023 11:27 AM [employer] Yanira Castellanos RN Active documented in this encounter Progress Notes * Alice Grajeda MA - 07/16/2023 11:23 AM CDT Patient informed and verbalized understanding. * Alice Grajeda MA - 07/16/2023 11:22 AM CDT ----- Message from EPI Plummer sent at 07/16/2023 11:21 AM CDT ----- Regarding: RE: REFILL REQUEST Script sent and Alice is calling patient ----- Message ----- From: Trinity Griffin RN Sent: 07/16/2023 10:35 AM CDT To: EPI Plummer; Trinity Griffin RN Subject: REFILL REQUEST Encounter started DOS 06/21/23 left total hip arthroplasty Oxycodone 5/325 #30 last filled 07/06/23 [facility] [place] ----- Message ----- From: Adamaris Waddell CNA Sent: 07/16/2023 10:16 AM CDT To: UNA Mendoza in [place] refill on pain medication documented in this encounter Plan of Treatment Upcoming Encounters Date Type Department Care Team (Late st Contact Info) Description 04/29/2024 1:45 PM [employer] Office Visit [address] [address] Sujatha Solis, [facility] [address] [place] [address] documented as of this encounter Visit Diagnoses Not on filedocumented in this encounter Care Teams Steel Worker Relationship Specialty Start Date End Date Asif Coto DO [address] [place] [address] PCP - General FAMILY PRACTICE 09/29/21 documented as of this encounter
--- OUTSIDE RECORDS SUMMARY | 2024-04-23 21:36 | XMS_ITS | Encounter Summary ---
Author Organization [facility] Address [address] [place] [address]. [place] [address] [place] [address] Care Team Providers Care Social Worker School Name Role Phone Mushtaqvalentin Asif GANDARA Primary Care Provider Reason for Visit * Reason Comments Knee Pain LEFT Encounter Details Date Type Department Care Team (Late st Contact Info) Description 01/22/2024 10:15 AM CDT Office Visit [facility] [address] [place] [address] Candida Padron PA [address] [place] [address] [address] [place] [address] Knee Pain (LEFT) Social History Tobacco Use Types Packs/Day Years Used Date Smoking Tobacco: Former Cigarettes Smokeless Tobacco: Never Tobacco Cessation:Counseling Given: Not Answered Alcohol Use Standard Drinks/Week Comments Not Currently 0 (1 standard drink = 0.6 oz pur e alcohol) Occassionaly. [facility] Utilities Answer Date Recorded In the [...] declined 02/26/2023 How often do you attend adventist or synagogue serv ices? Patient declined 02/26/2023 Do you belong to any clubs o r organizations such as adventist groups, unions, fraternal or athletic groups, or [...] Recorded Patient Health Questionnaire-2 Score 0 02/26/2023 [facility] [place] [facility] Occupat ional Health - Occupational Stress [...] Sexual Orientation Straight 02/26/2023 1: 40 PM CARDING MACHINE FEEDER documented as of this encounter Last Filed Vital Signs Vital Sign Reading Time Taken Comments Blood Pressure - - Pulse - - Temperature - - Respiratory Rate - - Oxygen Saturation - - Inhaled Oxygen Concentration - - Weight 67.6 kg (149 lb) 01/22/2024 10:26 AM CDT Height 165.1 cm (5' 5 ) 01/22/2024 10:26 AM CDT Body Mass Index 24.79 01/22/2024 10:26 AM CDT documented in this encounter Functional [...] encounter Progress Notes * Shirley NorthALBERTOA - 01/22/2024 10:15 AM CDT Donna is a 68-year-old female who presents for Knee Pain (LEFT) Patient is here today for LEFT knee pain. She states that she received an injection on 09/07/23 thatprovided her with great relief until recently. She locates the pain in her entire LEFT knee. She denies swelling. She describes the pain as sharp. She denies instability but does use a cane to assistwith ambulation. She does struggle with stairs due to other orthopedic issues. She does use mobic and would like refill today if possible and would like to switch to 15 instead of 7.5mg. She is not currently working. No additional nursing task documentation needed. Vitals: 01/22/24 1026 Weight: 67.6 kg (149 lb) Height: 1.651 m (5' 5 ) Current Outpatient Medications Medication Sig traZODone (DESYREL) 100 MG tablet Take 1 tablet (100 mg total) by mouth nightly at bedtime. amLODIPine 10 MG tablet Take 1 tablet [...] alternating nostrils until medical assistance becomes available Hatley-3 Fatty Acids (FISH OIL) 500 MG capsule Take 1,000 mg by mouth daily. OZEMPIC 1 mg/dose injection (PEN) Inject into the skin once a week. pantoprazole EC (PROTONIX) 40 MG tablet Take 1 tablet (40 mg total) by mouth daily. TRUE METRIX BLOOD GLUCOSE TEST test strip TRUEplus Lancets 33G [facility] vitamin D3 (CHOLECALCIFEROL) 25 mcg tablet Take 1 tablet (25 mcg total) by mouth daily. Past Surgical History: Procedure Laterality Date BACK SURGERY x3 FOOT SURGERY Left 07/27/2022 FOOT SURGERY Right 2001 HIP ARTHROPLASTY Right 02/26/2023 KNEE ARTHROPLASTY Right 04/01/2014 PUMP INFILTRATION Left pain pump TOTAL HIP ARTHROPLASTY Left 06/21/2023 Dr. Rader Allergies 2-octylcyanoacrylate [cyanoacrylate] and Adhesive [vinyl] [x] Total Tkez-co-Gbrn Assessment Time: 0-15 minutes Additional Contributory Factors NONE * DEON Desai - 01/22/2024 10:15 AM CDT Images from the original note were not included. Chief Complaint: Knee Pain (LEFT) History of Present Illness: Donna Saunders is a 68-year-old female who presents to the office for Knee Pain (LEFT) Patient is here today for LEFT knee pain. She states that she received an injection on 09/07/23 thatprovided her with great relief until recently. She locates the pain in her entire LEFT knee. She denies swelling. She describes the pain as sharp. She denies instability but does use a cane to assistwith ambulation. She does struggle with stairs due to other orthopedic issues. She does use mobic and would like refill today if possible and would like to switch to 15 instead of 7.5mg. She is not currently working. 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 History of total right hip arthroplasty Aftercare following left hip joint replacement surgery History: Past Medical History: Diagnosis Date Aphthous stomatitis Chronic back pain Diabetes ([facility]/H[facility] HHS/HCC) Hypertension Hypothyroidism, unspecified Mixed hyperlipidemia Osteoarthritis of right hip 02/26/2023 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 01/31/2023 Added automatically from request for surgery [id number] Past Surgical History: Procedure Laterality Date BACK [...] min Stress: No Stress Concern Present (02/26/2023) [facility] [place] [facility] - Occupational Stress Questionnaire Feeling of Stress : Not at all Social Connections: Unknown (02/26/2023) Social Connection and Isolation Panel [NHANES] Frequency of Communication with Friends and Family: Patient declined Frequency of Social Gatherings with Friends and Family: Patient declined Attends Buddhism Services: Patient declined Active Member of Clubs [...] No Medications: Current Outpatient Medications: meloxicam (MOBIC) 7.5 MG tablet, Take 1 tablet (7.5 mg total) by mouth daily., Disp: 30 tablet, Rfl: 2 traZODone (DESYREL) 100 MG tablet, Take 1 tablet (100 mg total) by mouth nightly at bedtime., Disp:, Rfl: amLODIPine 10 MG tablet, Take 1 tablet [...] total) by mouth daily., Disp: , Rfl: metFORMIN ER 500 MG 24 hr tablet, [...] becomes available, Disp: 1 each, Rfl: PRN Hatley-3 Fatty Acids (FISH OIL) 500 MG capsule, Take 1,000 mg by mouth daily., Disp: , Rfl: OZEMPIC 1 mg/dose injection (PEN), Inject into the skin once a week., Disp: , Rfl: pantoprazole EC (PROTONIX) 40 MG tablet, Take 1 tablet (40 mg total) by mouth daily., Disp: , Rfl: TRUE METRIX BLOOD GLUCOSE TEST test strip, , Disp: , Rfl: TRUEplus Lancets 33G [facility], , Disp: , Rfl: vitamin D3 (CHOLECALCIFEROL) 25 mcg tablet, Take 1 tablet (25 mcg total) by mouth daily., Disp: , Rfl: Allergies: Review of patient's allergies indicates: Allergen Reactions 2-Octylcyanoacrylate [Cyanoacrylate] Hives, Rash and Swelling Dermabond Adhesive [Vinyl] Rash and Swelling Possibly Dermabond adhesive, used after surgery Objective: There were no vitals filed for this visit. Vitals Height: 165.1 cm (5' 5 ) Weight: 67.6 kg (149 lb) BMI (Calculated): 24.79 Physical exam: Constitutional: Alert and in no acute distress. Neurological: The patient was oriented to person, place, and time. Eyes: The sclera and conjunctiva were normal ENT: Hearing was normal. Neck: The appearance of the neck was normal. Cardiovascular: Normal pulses. Pulmonary: No respiratory distress. Skin: No injuries or skin lesion. Musculoskeletal: Examination of the left knee demonstrates no erythema, ecchymosis, or swelling to overlying skin. Minimal tenderness to palpation over the medial joint line. Range of motion 0?? short of full extension and flexion to 125??. No joint effusion. No pain with deep knee flexion. Negative groin pain elicited with hip rotation. Antalgic gait. Neurovascularly intact distally with palpable pedal pulse. Diagnostic Imaging: X-rays of the left knee today reveal moderate degenerative changes most notable to patellofemoral and medial compartments. There are no acute or healing fractures or dislocations. Labs: ESR Date Value Ref Range Status 11/14/2023 23 (H) 0 - 20 MM/HR Final Comment: NOTE: ANEMIA, IF PRESENT, MAY CAUSE AN ELEVATED SEDIMENTATION RATE. C-REACTIVE PROTEIN Date Value Ref Range Status 11/14/2023 0.14 <0.30 mg/dL Final No results found for: MRSPCR No data to display Cell Count W Diff Body Fluid: No results found for: SOURCEFLD , FLWC , FLRBC , SEGSFLD , LYMPHSFL , MONOFL Assessment: Encounter Diagnose(s) ICD-10-CM SNOMED CT(R) 1. Primary osteoarthritis of left knee M17.12 OSTEOARTHRITIS OF LEFT KNEE JOINT lidocaine (XYLOCAINE) 1 % injection SOLN 8 mL methylPREDNISolone acetate (DEPO-Medrol) injection 80 mg Procedure: Procedure: Injection of the Knee Joint on the left. Indications for the procedure include Osteoarthritis. The procedure's were discussed with the patient. Verbal consent was obtained prior to the procedure. Procedure Note: Donna was prepped and draped in the usual sterile fashion using alcohol and usingbetadine. Anesthesia: Ethyl chloride spray was used as a topical anesthetic. A 21 gauge and 1.5 Inch needle was used to inject 8 mL lidocaine 1% and 1 mL methylprednisolone 80 mg/mL. Dressing: A bandage was applied. Post-Procedure: the patient tolerated the procedure well. Complications: there were no complications. Follow-up in the office prn. Plan: Patient returns for follow-up on her known left knee osteoarthritis. She states she did receive a cortisone injection 4 months ago with good relief up until a few weeks ago. Patient expresses that she wishes to remain conservative at this time for her knee with injection therapy. She elected proceed with left knee cortisone injection. Injection was performed in office today and tolerated well. She is aware these injections may be repeated every 3 months. We also discussed a trial of viscosupplementation if today's injection fails to provide long-term relief. Patient's meloxicam was refilled today. She requested 7.5 mg tablets instead of 15 mg tablets that require split in half. She may resume activities as tolerated and follow-up on an as-needed basis. Follow up: Return if symptoms worsen or fail to improve. DEON Desai documented in this encounter Plan of Treatment Upcoming Encounters Date Type Department Care Team (Late st Contact Info) Description 04/29/2024 1:45 PM CARDING MACHINE FEEDER Office Visit [facility] [address] [place] [address] Sujatha Solis, [facility] [address] [place] [address] documented as of this encounter Visit Diagnoses Diagnosis Primary osteoarthritis of left knee- Primary Primary localized osteoarthrosis, lower leg documented in this encounter Administered Medications Inactive Administered Medications - up to 3 most recent administrations Medication Order MAR Action Action Date Dose Rate Site lidocaine (XYLOCAINE) 1 % injection SOLN 8 mL 8 mL, Other, Once, 1 dose, On Sun01/22/24 at 1115Indications:Primary osteoarthritis of left knee Given 01/22/2024 11:15 AM CDT 8 mLs Left Knee methylPREDNISolone acetate (DEPO-Medrol) injection 80 mg 80 mg, Intra-articular, Once, 1 dose, On Sun01/22/24 at 1115, Gage WellIndications:Primary osteoarthritis of left knee Given 01/22/2024 11:15 AM CDT 80 mg Left Knee documented in this encounter Care Teams Social Worker School Relationship Specialty Start Date End Date Asif Coto DO [address] [place] [address] PCP - General FAMILY PRACTICE 09/29/21 documented as of this encounter
--- OUTSIDE RECORDS SUMMARY | 2024-04-23 21:36 | XMS_ITS | Encounter Summary ---
Author Organization [facility] Address [address] [place] [address]. [place] [address] [place] [address] Care Team Providers Care Bridge Construction Inspector Name Role Phone Nnamdi Asif GANDARA Primary Care Provider Encounter Details Date Type Department Care Team (Latest Contact Info) Description 07/02/2023 Travel Social History Tobacco Use Types Packs/Day Years Used Date Smoking Tobacco: Former Cigarettes Smokeless Tobacco: Never Alcohol Use Standard Drinks/Week Comments Not Currently 0 (1 standard drink = 0.6 oz pur e alcohol) Occassionaly. [facility] Utilities Answer Date Recorded In the past 12 months has [employer], gas, oil, or water [employer] threatened to shut off services in your [...] declined 02/26/2023 How often do you attend congregation or islam serv ices? Patient declined 02/26/2023 Do you belong to any clubs o r organizations such as congregation groups, unions, fraternal or athletic groups, or [...] Recorded Patient Health Questionnaire-2 Score 0 02/26/2023 [facility] Occupat ional Health - Occupational [...] Sexual Orientation Straight 02/26/2023 1: 40 PM MEMBERSHIP SALES REPRESENTATIVE documented as of this encounter Functional Status [...] Date Author Status No 06/21/2023 11:27 AM MEMBERSHIP SALES REPRESENTATIVE Yanira Castellanos, RN Active documented in this encounter Plan of Treatment Upcoming Encounters Date Type Department Care Team (Late st Contact Info) Description 04/29/2024 1:45 PM MEMBERSHIP SALES REPRESENTATIVE Office Visit [facility] [address] [address] Sujatha Solis, [facility] [address] [place] [address] [place] [address] documented as of this encounter Visit Diagnoses Not on filedocumented in this encounter Care Teams Bridge Construction Inspector Relationship Specialty Start Date End Date Asif Coto DO [address] [place] [address] PCP - General FAMILY PRACTICE 09/29/21 documented as of this encounter
--- OUTSIDE RECORDS SUMMARY | 2024-04-23 21:36 | XMS_ITS | Encounter Summary ---
Author Organization [facility] Address [address] [place] [address]. [place] [address] [place] [address] Care Team Providers Care Auxiliary Equipment Operator Name Role Phone Mushtaqvalentin Asif GANDARA Primary Care Provider [phone] Reason for Visit * Reason Comments Knee Pain RIGHT Encounter Details Date Type Department Care Team (Late st Contact Info) Description 12/10/2023 2:30 PM CDT Office Visit [facility] [address], [facility] [address] [place] [address] Abdoul Ventura Jr., DO [address] [place] [address] Knee Pain (RIGHT) Social History Tobacco Use Types Packs/Day Years [...] How often do you attend rastafari or yazidi serv ices? Patient declined 02/26/2023 Do you [...] Recorded Patient Health Questionnaire-2 Score 0 02/26/2023 [facility] [place] [facility] - Occupational Stress [...] place to sleep or slept in a care home (including now)? No 02/26/2023 Comments No Sex and Gender Information Value Date Recorded Sex Assigned at Female 08/07/2022 4:17 PM CDT Legal Sex Female 8:54 PM CDT Gender Identity Female 08/07/2022 4:17 PM CDT Sexual Orientation Straight 02/26/2023 1: 40 PM SOFTWARE ANALYST documented as of this encounter Last Filed Vital Signs Vital Sign Reading Time Taken Comments Blood Pressure - - Pulse - - Temperature - - Respiratory Rate - - Oxygen Saturation 97% 12/10/2023 2:29 PM CDT Inhaled Oxygen Concentration - - Weight 70.3 kg (155 lb) 12/10/2023 2:29 PM CDT Height 165.1 cm (5' 5 ) 12/10/2023 2:29 PM CDT Body Mass Index 25.79 12/10/2023 2:29 PM CDT documented in this encounter Functional [...] Progress Notes * Maylin Dougherty MA - 12/10/2023 2:30 PM CDT Donna is a 68-year-old female who presents for Knee Pain (RIGHT) Patient presents to clinic today for RIGHT knee follow up. Patient had bone scan done 11/14/2023. She had a TKA to this knee 03/29/2014 with a doctor from [place], she is unsure of name. Her painis located in the entire knee without radiation. She denies any swelling or numbness. Pain increases with ambulation. She reports night time pain. She takes Tylenol with poor relief. She uses a heating pad and a knee brace with some relief. She uses a cane for ambulation. She is retired. No additional nursing task documentation needed. Vitals: 12/10/23 1429 Weight: 70.3 kg (155 lb) Height: 1.651 [...] mg total) by mouth nightly at bedtime. [facility] Natural Products (OSTEO BI-FLEX ADV TRIPLE ST) Tab Take 1 tablet by mouth 2 (two) times a day. naloxone (NARCAN) 4 MG/0.1ML nasal spray 1 spray by Nasal route as needed for Opioid reversal. may repeat every 2 to 3 minutes in alternating nostrils until medical assistance becomes available [place]-3 Fatty Acids (FISH OIL) 500 MG capsule Take 1,000 mg by mouth daily. OZEMPIC 1 mg/dose injection (PEN) Inject into the skin once a week. pantoprazole EC (PROTONIX) 40 MG tablet Take 1 tablet (40 mg total) by mouth daily. TRUE METRIX BLOOD GLUCOSE TEST test strip TRUEplus Lancets 33G [facility] vitamin D3 (CHOLECALCIFEROL) 25 mcg tablet Take 1 tablet (25 mcg total) by mouth daily. Past Surgical History: Procedure Laterality Date BACK SURGERY x3 FOOT SURGERY Left 07/27/2022 FOOT SURGERY Right 2001 HIP ARTHROPLASTY Right 02/26/2023 KNEE ARTHROPLASTY Right 04/01/2014 PUMP INFILTRATION Left pain pump TOTAL HIP ARTHROPLASTY Left 06/21/2023 Dr. Rader Allergies 2-octylcyanoacrylate [cyanoacrylate] and Adhesive [vinyl] [x] Total Vjpy-sa-Skqm Assessment Time: 0-15 minutes Additional Contributory Factors NONE * Abdoul Ventura Jr., - 12/10/2023 2:30 PM CDT Images from the original note were not included. Chief Complaint: Knee Pain (RIGHT) History of Present Illness: Donna Saunders is a 68-year-old female who presents to the office for Knee Pain (RIGHT) Patient presents to clinic today for RIGHT knee follow up. Patient had bone scan done 11/14/2023. She had a TKA to this knee 03/29/2014 with a doctor from [place], she is unsure of name. Her painis located in the entire knee without radiation. She denies any swelling or numbness. Pain increases with ambulation. She reports night time pain. She takes Tylenol with poor relief. She uses a heating pad and a knee brace with some relief. She uses a cane for ambulation. She is retired. ROS: See HPI for [...] 01/31/2023 Added automatically from request for surgery [id number] Past Surgical History: Procedure Laterality Date BACK [...] min Stress: No Stress Concern Present (02/26/2023) [facility] [place] [facility] - Occupational Stress Questionnaire Feeling of Stress : Not at all Social Connections: Unknown (02/26/2023) Social Connection and Isolation Panel [NHANES] Frequency of Communication with Friends and Family: Patient declined Frequency of Social Gatherings with Friends and Family: Patient declined Attends Voodoo Services: Patient declined Active Member of Clubs [...] Rfl: meloxicam (MOBIC) 15 MG tablet, Take 1 tablet (15 mg total) by mouth daily., Disp: 30 tablet, Rfl: 2 metFORMIN ER 500 MG 24 hr tablet, Take 1 tablet (500 mg total) by mouth nightly at bedtime., Disp: , Rfl: [facility] Natural Products (OSTEO BI-FLEX ADV TRIPLE ST) Tab, Take 1 tablet by mouth 2 (two) times a day., Disp: , Rfl: naloxone (NARCAN) 4 MG/0.1ML nasal spray, 1 spray by Nasal route as needed for Opioid reversal. mayrepeat every 2 to 3 minutes in alternating nostrils until medical assistance becomes available, Disp: 1 each, Rfl: PRN [place]-3 Fatty Acids (FISH OIL) 500 MG capsule, Take 1,000 mg by mouth daily., Disp: , Rfl: OZEMPIC 1 mg/dose injection (PEN), Inject into the skin once a week., Disp: , Rfl: pantoprazole EC (PROTONIX) 40 MG tablet, Take 1 tablet (40 mg total) by mouth daily., Disp: , Rfl: TRUE METRIX BLOOD GLUCOSE TEST test strip, , Disp: , Rfl: TRUEplus Lancets 33G [facility], , Disp: , Rfl: vitamin D3 (CHOLECALCIFEROL) 25 mcg tablet, Take 1 tablet (25 mcg total) by mouth daily., Disp: , Rfl: Allergies: Review of patient's allergies indicates: Allergen Reactions 2-Octylcyanoacrylate [Cyanoacrylate] Hives, Rash and Swelling Dermabond Adhesive [Vinyl] Rash and Swelling Possibly Dermabond adhesive, used after surgery Objective: Vitals: 12/10/23 1429 SpO2: 97% Vitals Height: 165.1 cm (5' 5 ) Weight: 70.3 kg (155 lb) BMI (Calculated): (!) 25.79 Physical exam: Constitutional: Alert and in no acute distress. Neurological: The patient was oriented to person, place, and time. Eyes: The sclera and conjunctiva were normal ENT: Hearing was normal. Neck: The appearance of the neck was normal. Cardiovascular: Normal pulses. Pulmonary: No respiratory distress. Skin: No injuries or skin lesion. Musculoskeletal: ttp Diagnostic Imaging: Negative bone scan Labs: ESR Date Value Ref Range Status [...] Pain due to total right knee replacement, subsequent encounter T84.84XD PAIN ASSOCIATED WITH PROSTHESIS OF KNEE JOINT Z96.651 Plan: We attempted taping today. F/U in 1 week to see if any improvement. Follow up: No follow-ups on file. ABDOUL VENTURA JR, DO documented in this encounter Plan of Treatment Upcoming Encounters Date Type Department Care Team (Late st Contact Info) Description 04/29/2024 1:45 PM SOFTWARE ANALYST Office Visit [facility] [address] [facility], [facility] [address] [place] [address] Sujatha Solis, STEWARD/STEWARDESS ROOM- [address] [place] [address] documented as of this encounter Visit Diagnoses Diagnosis Pain due to total right knee replacement, subsequent encounter- Primary documented in this encounter Care Teams Auxiliary Equipment Operator Relationship Specialty Start Date End Date Asif Coto DO [address] [place] [address] PCP - General FAMILY PRACTICE 09/29/21 documented as of this encounter
--- OUTSIDE RECORDS SUMMARY | 2024-04-23 21:36 | XMS_ITS | Encounter Summary ---
Author Organization [facility] Address [address] [place] [address]. [place] [address] [place] [address] Care Team Providers Care Extrusion Press Operator Name Role Phone MushtaqAsif hanson Primary Care Provider [phone] Reason for Visit * Reason Onset Date Comments Refill Request 07/25/2023 Encounter Details Date Type Department Care Team (Late st Contact Info) Description 07/25/2023 Telephone [facility] [place] [id number] [facility], [facility] 1 [place] [address] Roldan Rader MD [address] [id number] Refill Request Social History Tobacco Use Types Packs/Day Years Used Date Smoking Tobacco: Former Cigarettes Smokeless Tobacco: Never Alcohol Use Standard Drinks/Week Comments Not Currently 0 (1 standard drink = 0.6 oz pur e alcohol) Occassionaly. [facility] Utilities Answer Date Recorded In the past 12 months has [employer], gas, oil, or water [employer] threatened to shut off services in your [...] declined 02/26/2023 How often do you attend mosque or yazidism serv ices? Patient declined 02/26/2023 Do you belong to any clubs o r organizations such as mosque groups, unions, fraternal or athletic groups, or [...] Recorded Patient Health Questionnaire-2 Score 0 02/26/2023 [facility] - Occupational [...] place to sleep or slept in a skilled nursing (including now)? No 02/26/2023 Comments No Sex and Gender Information Value Date Recorded Sex Assigned at Female 08/07/2022 4:17 PM CDT Legal Sex Female 8:54 PM CDT Gender Identity Female 08/07/2022 4:17 PM CDT Sexual Orientation Straight 02/26/2023 1: 40 PM FEED MILL TENDER documented as of this encounter Functional Status [...] Progress Notes * Trinity Griffin RN - 07/25/2023 4:30 PM CDT Returned call to patient and informed her that her pain medication and meloxicam has been sent to the pharmacy. Also informed patient that the numbness that patient is experiencing is normal. Patientv/u and no further questions noted. * Roldan Rader MD - 07/25/2023 4:30 PM CDTAddended by: ROLDAN RADER on: 07/25/2023 04:30 PM Modules accepted: Orders * Trinity Griffin RN - 07/25/2023 2:48 PM CDT --------- Message ----- From: Maylin Dougherty MA Sent: 07/25/2023 2:27 PM CDT To: Trinity Griffin RN; KATIE Rees; # Patient called in for refill of meloxicam and oxycodone Pharmacy [facility] Patient mentioned her left leg from knee to hip is still numb documented in this encounter Plan of Treatment Upcoming Encounters Date Type Department Care Team (Late st Contact Info) Description 04/29/2024 1:45 PM FEED MILL TENDER Office Visit [facility] [place] [address] [facility], [facility] 1 [place] [address] Sujatha Solis, PRIMARY CLINICIAN- [address] [facility] [address] [place] [address] documented as of this encounter Visit Diagnoses Diagnosis 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
--- OUTSIDE RECORDS SUMMARY | 2024-04-23 21:36 | XMS_ITS | Encounter Summary ---
Author Organization [facility] Address [address] [place] [address]. [place] [address] [place] [address] Care Team Providers Care Metal Sponge Making Machine Operator Name Role Phone Nnamdi Asif GANDARA Primary Care Provider [phone] Encounter Details Date Type Department Care Team (Latest Contact Info) Description 11/14/2023 Travel Social History Tobacco Use Types Packs/Day Years Used Date Smoking Tobacco: Former Cigarettes Smokeless Tobacco: Never Alcohol Use Standard Drinks/Week Comments Not Currently 0 (1 standard drink = 0.6 oz pur e alcohol) Occassionaly. [facility] Utilities Answer Date Recorded In the past 12 months has [employer], gas, oil, or water [employer] threatened to shut off services in your [...] How often do you attend zoroastrianism or muslim serv ices? Patient declined 02/26/2023 Do you [...] Recorded Patient Health Questionnaire-2 Score 0 02/26/2023 [facility] ional [facility] - Occupational [...] place to sleep or slept in a retirement (including now)? No 02/26/2023 Comments No Sex and Gender Information Value Date Recorded Sex Assigned at Female 08/07/2022 4:17 PM CDT Legal Sex Female 8:54 PM CDT Gender Identity Female 08/07/2022 4:17 PM CDT Sexual Orientation Straight 02/26/2023 1: 40 PM TECHNICAL INSTRUCTOR COURSE DEVELOPER documented as of this encounter Functional Status [...] Date Author Status No 06/21/2023 11:27 AM TECHNICAL INSTRUCTOR COURSE DEVELOPER Yanira Castellanos, RN Active documented in this encounter Plan of Treatment Upcoming Encounters Date Type Department Care Team (Late st Contact Info) Description 04/29/2024 1:45 PM TECHNICAL INSTRUCTOR COURSE DEVELOPER Office Visit [facility] [address] [address] Sujatha Solis, [facility]- [address] [place] [address] [place] [address] documented as of this encounter Visit Diagnoses Not on filedocumented in this encounter Care Teams Metal Sponge Making Machine Operator Relationship Specialty Start Date End Date Asif Coto DO [address] [place] [address] PCP - General FAMILY PRACTICE 09/29/21 documented as of this encounter
--- OUTSIDE RECORDS SUMMARY | 2024-04-23 21:36 | XMS_ITS | Encounter Summary ---
Author Organization [facility] Address [address] [place] [address]. [place] [address] [place] [address] Care Team Providers Care Open Shank Coverer Name Role Phone MushtaqAsif hanson Primary Care Provider [phone] Reason for Visit * Reason Onset Date Comments Refill Request 07/06/2023 Encounter Details Date Type Department Care Team (Late st Contact Info) Description 07/06/[address] [facility] [place] [id number] [facility] [address] [place] [address] Sujatha Solis, [facility] [address] [facility] [place] [address] Refill Request Social History Tobacco Use Types Packs/Day Years Used Date Smoking Tobacco: Former Cigarettes Smokeless Tobacco: Never Alcohol Use Standard Drinks/Week Comments Not Currently 0 (1 standard drink = 0.6 oz pur e alcohol) Occassionaly. [facility] Utilities Answer Date Recorded In the [...] How often do you attend congregation or rastafarian serv ices? Patient declined 02/26/2023 [...] Recorded Patient Health Questionnaire-2 Score 0 02/26/2023 [facility]ational Stress Questionnaire Answer [...] Sexual Orientation Straight 02/26/2023 1: 40 PM CISCO ENGINEER documented as of this encounter Functional Status [...] documented in this encounter Progress Notes * DEON Desai - 07/06/2023 12:53 PM CDTAddended by: YUDELKA HOWE on: 07/06/2023 12:53 PM Modules accepted: Orders * KATIE Rees - 07/06/2023 12:51 PM CDT RN spoke with patient and she would like to know which dose of flexeril to take. travel ticketing reviewer with provider and patient should resume flexeril 5mg as managed by pain clinic. Patient states that she continues to have pain that she locates in her thigh. She denies night pain. She states that she is scheduled for first PT visit today at 2:30pm. She will continue to ice and elevate. Patient will call with worsening symptoms. No further questions at this time. * Trinity Griffin RN - 07/06/2023 11:34 AM CDT ----- Message from Norma Hu sent at 07/06/2023 11:11 AM CDT ----- Regarding: Prescription Patient would like a refill on her pain medication and has a question on her Flexeril. Please send to [facility] in [place]. # [phone] documented in this encounter Plan of Treatment Upcoming Encounters Date Type Department Care Team (Late st Contact Info) Description 04/29/2024 1:45 PM CISCO ENGINEER Office Visit [facility] [address] [facility] 1 [place] [address] Sujatha Solis, 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
--- OUTSIDE RECORDS SUMMARY | 2024-04-23 21:36 | XMS_ITS | Clinical Summary ---
Author Organization [facility] Address [address] [place] [address]. [place] [address] [place] [address] Care Team Providers Care Junior Network Administrator Name Role Phone MushtaqAsif hanson Primary Care Provider [phone] Allergies Active Allergy Reactions Criticality Noted Date Comments Cyanoacrylate Hives,Rash,Swelling High 06/25/2023 Dermabond Vinyl Rash,Swelling Medium 01/30/2023 Possibly Dermabond adhesive, used after surgery Medications metFORMIN ER 500 MG 24 hr tablet Take 1 tablet (500 mg total) by mouth nightly at bedtime. 05/13/2021 Active lisinopril (PRINIVIL) 5 MG tablet Take 1 tablet (5 mg total) by mouth daily. 12/29/2020 Active TRUEplus Lancets 33G Misc 01/10/2021 Active TRUE METRIX BLOOD GLUCOSE TEST test strip 01/10/2021 Act stella Blood Glucose Monitoring Suppl (TRUE METRIX METER) w/Device Kit 01/10/2021 Active atorvastatin 40 MG tablet Take 1 tablet (40 mg total) by mouth daily. 06/03/2021 Active amLODIPine 10 MG tablet Take 1 tablet (10 mg total) by mouth daily. 06/27/2021 Active vitamin D3 (CHOLECALCIFERO L) 25 mcg tablet Take 1 tablet (25 mcg total) by mouth daily. Active Bejou-3 Fatty Acids (FISH OIL) 500 MG capsule Take 1,000 mg by mouth daily. Active Misc Natural Products (OSTEO BI-FLEX ADV TRIPLE ST) Tab Take 1 tablet by mouth 2 (two) times a day. Active Coconut Oil 1000 MG Cap Take 3,000 mg by mouth 2 (two) times a day. Active cyclobenzaprine (FLEXERIL) 5 MG tablet Take 1 tablet (5 mg total) by mouth 2 (two) times daily as needed. 07/13/2022 Active cyanocobalamin (B-12) 1000 MCG/ML injection Inject 1 mL (1,000 mcg total) into the muscle once a week. 07/11/2022 Active losartan (COZAAR) 50 MG tablet Take 1 tablet (50 mg total) by mouth daily. 08/21/2022 Active HYDROMORPHONE HCL IJ Via internal pump Active OZEMPIC 1 mg/dose injection (PEN) Inject into the skin once a week. 04/06/2023 Active pantoprazole EC (PROTONIX) 40 MG tablet Take 1 tablet (40 mg total) by mouth daily. 05/17/2023 Active Eszopiclone 3 MG Tab Take 3 mg by mouth nightly at bedtime. 05/17/2023 Active levothyroxine (SYNTHROID) 75 MCG tablet Take 1 tablet (75 mcg total) by mouth every morning. 05/08/2023 Active traZODone (DESYREL) 100 MG tablet Take 1 tablet (100 mg total) by mouth nightly at bedtime. 01/03/2024 Active meloxicam (MOBIC) 7.5 MG tablet Take 1 tablet (7.5 mg total) by mouth daily. 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 10/27/2022 Resolved Problems Problem Noted Date Diagnosed Date Resolved Date Osteoarthritis of right hip 02/26/2023 06/22/2023 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 01/31/2023 06/22/2023 Overview (01/31/2023): Added automatically from request for surgery [id number] Encounters Date Type Department Care Team Description 01/22/2024 10:15 AM CDT Office Visit [facility] [address] [place] [address] Yudelka Howe PA Knee Pain (LEFT) 01/22/2024 10:13 AM CDT - 01/22/2024 11:59 PM CDT Hospital Encounter [facility] [address] [place] [address] Yudelka Howe PA Discharge Disposition: Home or Self Care (Routine Discharge) 01/22/2024 Travel 01/22/2024 Orders Only [facility] [address] [place] [address] Yudelka Hwoe PA from Last 3 Months Family History Medical History Relation Comments Cancer Father heart problems Mother Thyroid Disease Other Relation Status Comments Father Mother Other Social History Tobacco Use Types Packs/Day Years Used Date Smoking Tobacco: Former Cigarettes Smokeless Tobacco: Never Tobacco Cessation:Counseling Given: Not Answered Alcohol Use Standard Drinks/Week Comments Not Currently 0 (1 standard drink = 0.6 oz pur e alcohol) Occassionaly. [facility] Utilities Answer Date Recorded In the past 12 months has [employer] gas, oil, or water [employer] threatened to shut off services in your [...] declined 02/26/2023 How often do you attend buddhism or amish serv ices? Patient declined 02/26/2023 Do you belong to any clubs o r organizations such as buddhism groups, unions, fraternal or athletic groups, or [...] Recorded Patient Health Questionnaire-2 Score 0 02/26/2023 [facility] - Occupational [...] Sexual Orientation Straight 02/26/2023 1: 40 PM HELP DESK MANAGER Last Filed Vital Signs Vital Sign Reading Time Taken Comments Blood Pressure 122/66 11/05/2023 11:23 AM CDT Pulse 79 11/05/2023 11:23 AM CDT Temperature 35.8 ??C (96.4 ??F) 06/30/2023 2:37 PM CD T Respiratory Rate 21 06/30/2023 2:37 PM CDT Oxygen Saturation 97% 12/10/2023 2:29 PM CDT Inhaled Oxygen Concentration - - Weight 67.6 kg (149 lb) 01/22/2024 10:26 AM CDT Height 165.1 cm (5' 5 ) 01/22/2024 10:26 AM CDT Body Mass Index 24.79 01/22/2024 10:26 AM CDT Plan of Treatment Upcoming Encounters Date Type Department Care Team (Late st Contact Info) Description 04/29/2024 1:45 PM HELP DESK MANAGER Office Visit [facility] [address], [facility] [address] [place] [address] Sujatha Solis, BROKE HANDLER-BC [address] [place] [address] Health Maintenance Due Date Last Done Comments Colorectal Cancer Screening Colonoscopy (10 Years) 1954 Hepatitis C 1972 DTaP, Tdap and Td Vaccines (1 - Tdap) 1973 Mammogram Screening 1994 Zoster Vaccines (2 of 3) 06/26/2016 05/01/2016 Annual Medicare Wellness Visit 11/19/2019 Dexa Scan (General) 11/19/2019 Pneumococcal Vaccine: 65+ Years (2 of 2 - PPSV23 or PCV20) 12/23/2021 12/23/2020 COVID-19 Vaccine (4 - season) 2023 03/03/2021, 06/09/2020, 05/19/2020 Influenza Adult (#1) 2024 03/07/2019, 04/18/2018, 01/17/2017, Additional history exists RSV Immunization or 60+ Years (1 - 1-dose 75+ series) 2029 Meningococcal Vaccine Aged Out No flaquito greta eligible based on patient's age to complete this topic RSV Immunizations Under 20 Months Aged Out No longer eligible based on patient's age to complete this topic Medical Devices Implanted Type Area Performance Improvement Analyst Device Identifier Shelf Expiration Date Model / Serial / Lot Head Depuy Femoral Articuleze 28mm +1.5 - [id number] Implanted:Qty : 1 on 02/26/2023 by Roldan Rader MD at [facility] Hip Components Right: Hip DEPUY [id number] 06/14/2027 [id number] / / [id number] Stem Hip Depuy Tapered 155mm - [id number] Implanted:Qty : 1 on 06/21/2023 by Roldan Rader MD at [facility] [employer] Comp[employer] Left: Hip DEPUY [id number] 10/13/2032 [id number] / / [id number] Stimulator Lead Implant-2018 Implanted: (Quantity not on file) Lead Implant Back [employer] [id number] / [id number] / Stimulator Lead Implant-2018 Implanted: (Quantity not on file) Lead Implant Back [employer] [id number] / [id number] / Pain Pump- 2 Implanted:Qty : 1 on 12/07/2021 Pump Abdomen [employer] [id number] / [id number] / Description:ME CONDITIONAL A T 1.5 T OR 3 T, NEED IMAGING TO CHECK PUMP POSITION PRIOR TO MRI(MRI TECHNICAL MANUAL PAGE 12), PUMP NEEDS TO BE CHECKED BY [employer] REP AFTER SCAN Stimulator Implant-2018 Implanted:Qty : 1 on 06/12/2018 Stimulator Implant Back [employer] [id number] / [id number] / Description:MR CONDITIONAL A T 1.5 T ONLY, NEED REMOTE TO TURN OFF STIMULATION AND CHECK FULL BODY ELIGIBLE, NORMAL SCAN MODE , MAX TOTAL SCAN TIME OF 30 MIN IN 90 MIN WINDOW, CHECK MOST RECENT MRI MANUAL FOR SCAN CONDITIONS Wendell Porcoat Acetabular Shell Sector 11 Implanted:Qty : 1 on 02/26/2023 by Roldan Rader MD at [facility] Right: Hip DEPUY 11/13/2032 [id number] / / [id number] Wendell Cancellous Bone Screw Implanted:Qty : 1 on 02/26/2023 by Roldan Rader MD at [facility] Right: Hip DEPUY 08/13/2032 [id number] / / [id number] Wendell [employer] Dual Mobility Liner Implanted:Qty : 1 on 02/26/2023 by Roldan Rader MD at [facility] Right: Hip DEPUY 10/13/2032 [id number] / / [id number] Bimentum Altrx Liner Implanted:Qty : 1 on 02/26/2023 by Roldan Rader MD at [facility] Right: Hip DEPUY 01/13/2027 [id number] / / [id number] Gage Femoral Stem 03/29 Tapered W/ Porcoat Implanted:Qty : 1 on 02/26/2023 by Roldan Rader MD at [facility] Right: Hip DEPUY 02/14/2032 [id number] / / [id number] Wendell Cancellous Bone Screw Implanted:Qty : 1 on 06/21/2023 by Roldan Rader MD at [facility] Left: Hip [employer] - A OSMIN & OSMIN 12/14/2032 0 / / [id number] M=Spec Metal Femoral Head Implanted:Qty : 1 on 06/21/2023 by Roldan Rader MD at [facility] Left: Hip [employer] - A OSMIN & OSMIN 10/13/2026 0 / / [id number] Bi-Mentum Altrax Liner Implanted:Qty : 1 on 06/21/2023 by Roldan Rader MD at [facility] Left: Hip [employer] - A OSMIN & OSMIN 11/13/2026 [id number] / / [id number] Wendell [employer] Dual Mobility Liner Implanted:Qty : 1 on 06/21/2023 by Roldan Rader MD at [facility] Left: Hip [employer]PU[employer] - A OSMIN & OSMIN [id number] 03/15/2033 7 / / [id number] Wendell Porocoat Acetabular Shell Sector Ii Implanted:Qty : 1 on 06/21/2023 by Roldan Rader MD at [facility] Left: Hip [employer]PU[employer] - A OSMIN & OSMIN 11/13/2032 4 / / [id number] Explanted Type Area Performance Improvement Analyst Device Identifier Shelf Expiration Date Model / Serial / Lot Drill Bit Explanted:Qty: 1 on 02/26/2023 by Roldan Rader MD at [facility] Right: Hip [id number] / / Drill Bit Explanted:Qty: 1 on 06/21/2023 by Roldan Rader MD at [facility] Left: Hip [id number] / / Procedures Procedure Name Priority Date/Time Associated Diagnosis Comments XR KNEE LT 3V Routine 01/22/2024 10:52 AM CDT Acute pain of left knee from Last 3 Months Results * XR KNEE LT 3V (01/22/2024 10:52 AM CDT) Anatomical Region Laterality Modality Knee Radiographic Chanel ging 01/22/2024 4:25 PM CDT Impressions 01/22/2024 4:26 PM CDT IMPRESSION: No acute findings. Stable degenerative changes. Ordered By: YUDELKA HOWE Interpreted By: Abimael Shannon MD, 01/22/2024 4:25 PM Narrative 01/22/2024 4:26 PM CDT [address] [place] [address] Examination: Left knee. Exam time: 0944 hours. Clinical history: Pain. Comparison: 08/08/2022. Technique: [place] and weightbearing AP and lateral views. Findings: No fracture, dislocation or other acute bony abnormality is identified. There are stable mild degenerative changes manifested by patellofemoral and medial femorotibial joint space narrowing and periarticular osteophyte formation. No other significant bone or joint abnormality is noted. The soft tissues are unremarkable. Procedure Note Abimael Shannon MD - 01/22/[address] [place] [address] Examination: Left knee. Exam time: 0944 hours. Clinical history: Pain. Comparison: 08/08/2022. Technique: [place] and weightbearing AP and lateral views. Findings: [...] By: Abimael Shannon MD, 01/22/2024 4:25 PM [facility] Final Result from Last 3 Months Insurance MEDICAID [facility] MED[facility] AET[employer] Advance Directives * Full Code (Latest Code Status on File) Date Activated Date Inactivated Comments 06/21/2023 11:17 AM 06/22/2023 5:02 PM * Full Code Date Activated Date Inactivated Comments 02/26/2023 1:09 PM 02/27/2023 4:49 PM Care Teams Junior Network Administrator Relationship Specialty Start Date End Date Asif Coto DO [address] [place] [address] PCP - General FAMILY PRACTICE 09/29/21
--- OUTSIDE RECORDS SUMMARY | 2024-04-23 21:36 | XMS_ITS | Encounter Summary ---
Author Organization [facility] Address [address] [place] [address]. [place] [address] [place] [address] Care Team Providers Care Direct Entry Midwife Name Role Phone MushtaqAsif hanson Primary Care Provider [phone] Reason for Visit * Reason Onset Date Comments Refill Request 07/16/2023 Encounter Details Date Type Department Care Team (Late st Contact Info) Description 07/16/2023 Telephone [facility] [place] [address] [facility] [place] [address] Blanco Solis, [facility] [address] [place] [address] Refill Request Social History Tobacco Use Types Packs/Day Years Used Date Smoking Tobacco: Former Cigarettes Smokeless Tobacco: Never Alcohol Use Standard Drinks/Week Comments Not Currently 0 (1 standard drink = 0.6 oz pur e alcohol) Occassionaly. [facility] Utilities Answer Date Recorded In [...] How often do you attend orthodoxy or voodoo serv ices? Patient declined 02/26/2023 Do you [...] Questionnaire-2 Score 0 02/26/2023 [facility] Questionnaire [...] Sexual Orientation Straight 02/26/2023 1: 40 PM NATIONAL SALES DIRECTOR documented as of this encounter Functional Status [...] documented in this encounter Progress Notes * EPI Plummer - 07/16/2023 11:21 AM CDTAddended by: BLANCO SOLIS on: 07/16/2023 11:21 AM Modules accepted: Orders * EPI Plummer - 07/16/2023 11:20 AM CDT Script has been sent to the pharmacy * Trinity Griffin RN - 07/16/2023 10:32 AM CDT ----- Message from Adamaris Waddell CNA sent at 07/16/2023 10:15 AM CDT ----- [facility] in [place] refill on pain medication documented in this encounter Plan of Treatment Upcoming Encounters Date Type Department Care Team (Late st Contact Info) Description 04/29/2024 1:45 PM NATIONAL SALES DIRECTOR Office Visit [facility] [place] [address] [facility] [address] [place] [address] Blanco Solis FNP-BC [facility] [address] documented as of this encounter Visit Diagnoses Diagnosis 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
--- OUTSIDE RECORDS SUMMARY | 2024-04-23 21:36 | XMS_ITS | Encounter Summary ---
Author Organization [facility] Address [address] [place] [address]. [place] [address] [place] [address] Care Team Providers Care Customs Broker Name Role Phone Nnamdi Asif GANDARA Primary Care Provider [phone] Reason for Visit * Reason Comments Postop Followup DOS:06/21/2023- LEFT total hip arthroplasty Encounter Details Date Type Department Care Team (Latest Contact Info) Description 07/02/2023 10:00 AM CDT Office Visit [facility] [place] [address] Yudelka Howe PA [address] [place] [address] Postop Followup (DOS:06/21/2023- LEFT total hip arthroplasty) Social History Tobacco Use Types Packs/Day Years Used Date Smoking Tobacco: Former Cigarettes Smokeless Tobacco: Never Tobacco Cessation:Counseling Given: Not Answered Alcohol Use Standard Drinks/Week Comments Not Currently 0 (1 standard drink = 0.6 oz pur e alcohol) Occassionaly. [facility] Utilities Answer Date Recorded In the past 12 months has e [employer], gas, oil, or water [employer] threatened to shut off services in your [...] declined 02/26/2023 How often do you attend mormonism or muslim serv ices? Patient declined 02/26/2023 Do you belong to any clubs o r organizations such as mormonism groups, unions, fraternal or athletic groups, or [...] Recorded Patient Health Questionnaire-2 Score 0 02/26/2023 [facility] of Occupat ional Health - Occupational Stress [...] Sexual Orientation Straight 02/26/2023 1: 40 PM FORK LIFT MECHANIC documented as of this encounter Last Filed Vital Signs Vital Sign Reading Time Taken Comments Blood Pressure - - Pulse - - Temperature - - Respiratory Rate - - Oxygen Saturation - - Inhaled Oxygen Concentration - - Weight 70.3 kg (155 lb) 07/02/2023 10:12 AM CDT Height 165.1 cm (5' 5 ) 07/02/2023 10:12 AM CDT Body Mass Index 25.79 07/02/2023 10:12 AM CDT documented in this encounter Functional [...] documented in this encounter Progress Notes * Manda Bryant, BELEN - 07/02/2023 10:00 AM CDT Donna is a 67-year-old female who presents for Postop Followup (DOS:06/21/2023- LEFT total hip arthroplasty) Patient here for postop follow up LEFT hip. She was seen here on 06/25/2023, and was also seen at [facility] on 06/30/2023. She states she has pain to the hip as well as the itching to the skin. She statesshe has not been dressing this area and has been leaving it open to air. She is using a wheeled walker for ambulation. She has been taking Percoet for pain with good relief. She takes Hydroxyzine anf Bactrim for the itching. She is to start PT this Sunday at [facility]. No additional nursing task documentation needed. Vitals: 07/02/23 1012 Weight: 70.3 kg (155 lb) Height: 1.651 m (5' 5 ) Current Outpatient Medications Medication Sig amLODIPine 10 MG tablet Take 1 tablet (10 mg total) by mouth daily. aspirin EC (ECOTRIN) 81 MG tablet Take 1 tablet (81 mg total) by mouth 2 (two) times daily with meals for 14 days. atorvastatin 40 MG tablet Take 1 tablet (40 mg total) by mouth daily. Blood Glucose Monitoring Suppl (TRUE METRIX METER) w/Device Kit Coconut Oil 1000 MG Cap Take 3,000 mg by mouth 2 (two) times a day. cyanocobalamin (B-12) 1000 MCG/ML injection Inject 1 mL (1,000 mcg total) into the muscle once a week. cyclobenzaprine (FLEXERIL) 10 MG tablet Take 1 tablet (10 mg total) by mouth 3 (three) times daily as needed for Muscle Spasms. cyclobenzaprine (FLEXERIL) 5 MG tablet Take 1 tablet (5 mg total) by mouth 2 (two) times daily as needed. Eszopiclone 3 MG Tab Take 3 mg by mouth nightly at bedtime. HYDROMORPHONE HCL IJ Via internal pump hydrOXYzine (VISTARIL) 25 MG capsule Take 1 capsule (25 mg total) by mouth 3 (three) times daily asneeded for Itching. levothyroxine (SYNTHROID) 75 MCG tablet Take 1 [...] alternating nostrils until medical assistance becomes available [place]-3 Fatty Acids (FISH OIL) 500 MG capsule Take 1,000 mg by mouth daily. oxyCODONE-acetaminophen (PERCOCET) 5-325 MG tablet Take 1 tablet by mouth every 6 (six) hours as needed for Pain. Indications: Chronic Pain OZEMPIC 1 mg/dose injection (PEN) Inject into the skin once a week. pantoprazole EC (PROTONIX) 40 MG tablet Take 1 tablet (40 mg total) by mouth daily. sulfamethoxazole-trimethoprim (BACTRIM DS) 800-160 MG tablet Take 1 tablet by mouth 2 (two) times daily for 10 days. TRUE METRIX BLOOD GLUCOSE TEST test strip TRUEplus Lancets 33G Misc vitamin D3 (CHOLECALCIFEROL) 25 mcg tablet Take [...] 2-octylcyanoacrylate [cyanoacrylate] and Adhesive [vinyl] [x] Total Elcm-ga-Lcfj Assessment Time: 0-15 minutes Additional Contributory Factors NONE * DEON Desai - 07/02/2023 10:00 AM CDT Chief Complaint: Postop Followup (DOS:06/21/2023- LEFT total hip arthroplasty) History of Present Illness: Donna Saunders is a 67-year-old female who presents to the office for Postop Followup (DOS:06/21/2023- LEFT total hip arthroplasty) Patient here for postop follow up LEFT hip. She was seen here on 06/25/2023, and was also seen at [facility] on 06/30/2023. She states she has pain to the hip as well as the itching to the skin. She statesshe has not been dressing this area and has been leaving it open to air. She is using a wheeled walker for ambulation. She has been taking Percoet for pain with good relief. She takes Hydroxyzine anf Bactrim for the itching. She is to start PT this Sunday at [facility]. ROS: See HPI for pertinent positives Problem [...] 01/31/2023 Added automatically from request for surgery [id number] Past Surgical History: Procedure Laterality Date BACK SURGERY x3 FOOT SURGERY Left 07/27/2022 FOOT SURGERY Right 2002 HIP ARTHROPLASTY Right 02/26/2023 KNEE ARTHROPLASTY Right [...] min Stress: No Stress Concern Present (02/26/2023) [facility] of Occupational Health - Occupational Stress Questionnaire Feeling of Stress : Not at all Social Connections: Unknown (02/26/2023) Social Connection and Isolation Panel [NHANES] Frequency of Communication with Friends and Family: Patient declined Frequency of Social Gatherings with Friends and Family: Patient declined Attends Baptism Services: Patient declined Active Member of Clubs [...] total) by mouth daily., Disp: , Rfl: aspirin EC (ECOTRIN) 81 MG tablet, Take 1 tablet (81 mg total) by mouth 2 (two) times daily with meals for 14 days., Disp: 28 tablet, Rfl: 0 atorvastatin 40 MG tablet, Take 1 tablet [...] a week., Disp: , Rfl: cyclobenzaprine (FLEXERIL) 10 MG tablet, Take 1 tablet (10 mg total) by mouth 3 (three) times dailyas needed for Muscle Spasms., Disp: 30 tablet, Rfl: 0 cyclobenzaprine (FLEXERIL) 5 MG tablet, Take 1 tablet (5 mg total) by mouth 2 (two) times daily as needed., Disp: , Rfl: Eszopiclone 3 MG Tab, Take 3 mg by mouth nightly at bedtime., Disp: , Rfl: HYDROMORPHONE HCL IJ, Via internal pump, Disp: , Rfl: hydrOXYzine (VISTARIL) 25 MG capsule, Take 1 capsule (25 mg total) by mouth 3 (three) times daily as needed for Itching., Disp: 30 capsule, Rfl: 0 levothyroxine (SYNTHROID) 75 MCG tablet, Take 1 [...] mouth nightly at bedtime., Disp: , Rfl: [facility] Natural Products (OSTEO BI-FLEX ADV TRIPLE ST) Tab, Take 1 tablet by mouth 2 (two) times a day., Disp: , Rfl: naloxone (NARCAN) 4 MG/0.1ML nasal spray, 1 spray by Nasal route as needed for Opioid reversal. mayrepeat every 2 to 3 minutes in alternating nostrils until medical assistance becomes available, Disp: 1 each, Rfl: PRN [place]-3 Fatty Acids (FISH OIL) 500 MG capsule, [...] total) by mouth daily., Disp: , Rfl: sulfamethoxazole-trimethoprim (BACTRIM DS) 800-160 MG tablet, Take 1 tablet by mouth 2 (two) times daily for 10 days., Disp: 20 tablet, Rfl: 0 TRUE METRIX BLOOD GLUCOSE TEST test strip, , Disp: , Rfl: TRUEplus Lancets 33G [facility], , Disp: , Rfl: vitamin D3 (CHOLECALCIFEROL) 25 mcg tablet, Take 1 tablet (25 mcg total) by mouth daily., Disp: , Rfl: Review of patient's allergies indicates: Allergen Reactions 2-Octylcyanoacrylate [Cyanoacrylate] Hives, Rash and Swelling Dermabond Adhesive [Vinyl] Rash and Swelling Possibly Dermabond adhesive, used after surgery Objective: Body mass index is 25.79 kg/m??. Last Recorded Weight 07/02/23 1012 Weight: 70.3 kg (155 lb) Physical exam: Constitutional: Alert and in no acute distress. Neurological: The patient was oriented to person, place, and time. Eyes: The sclera and conjunctiva were normal ENT: Hearing was normal. Neck: The appearance of the neck was normal. Cardiovascular: Normal pulses. Pulmonary: No respiratory distress. Skin: No injuries or skin lesion. Musculoskeletal: Examination of the left hip demonstrates improvement of erythema and dermatitis. Surgical incision well healed without warmth or active drainage. There is superficial skin desquamation present. No groin pain. Tenderness to palpation to the left lateral knee radiating into the left lateral aspect of the hip. Antalgic gait with walker. Results: X-rays of the left hip from today demonstrate stable arthroplasty without signs of loosening or hardware failure. No acute fractures or dislocations. Assessment: Encounter Diagnose(s) ICD-10-CM SNOMED CT(R) 1. Status post total replacement of left hip Z96.642 HISTORY OF TOTAL HIP ARTHROPLASTY XR PELVIS AP+LT HIP 1V Plan: Reviewed imaging with patient and family. We discussed that her incision is healed and there are nosigns of infection. Discussed that skin sloughing with continue to occur as dermatitis continues toimprove. She is to contact the office with any increased redness, warmth, or draining to her incision site. She will continue to take her Bactrim as prescribed and may discontinue the Vistaril. She has been unable to attend physical therapy due to incision site issues. I stressed the importance of physical therapy to help normalize her gait and strengthen the left lower extremity. She will plan to attend physical therapy on Sunday this week. She will follow-up in [address] Rader to reassess wound and post-operative progress. Follow up: Return in about 1 week (around 07/09/2023). DEON Desai Cosigned by Roldan aRder MD at 07/12/2023 3:44 PM CDT documented in this encounter Plan of Treatment Upcoming Encounters Date Type Department Care Team (Late st Contact Info) Description 04/29/2024 1:45 PM FORK LIFT MECHANIC Office Visit [facility] [address] [facility] [address] [place] [address] Irma Sujatha Castellano, [facility]- [address] [place] [address] documented as of this encounter Results * [...] persistent 4 mm lucent gap between the mechoopda bone and the hardware of the proximal [...] persistent 4 mm lucent gap between the mechoopda bone andthe hardware of the proximal left [...] hip documented in this encounter Care Teams Customs Broker Relationship Specialty Start Date End Date Asif Coto DO [address] [place] [address] PCP - General FAMILY PRACTICE 09/29/21 documented as of this encounter
--- OUTSIDE RECORDS SUMMARY | 2024-04-23 21:36 | XMS_ITS | Encounter Summary ---
Author Organization [facility] Address [address] [place] [address]. [place] [address] [place] [address] Care Team Providers Care Commodity Buyer Name Role Phone Nnamdi Asif GANDARA Primary Care Provider [phone] Encounter Details Date Type Department Care Team (Latest Contact Info) Description 08/24/2023 9:00 AM CDT - 08/24/2023 11:59 PM [facility] Hospital Encounter [facility] [address] [place] [address] Candida Padron PA [address] [facility] 1 [place] [id number] Discharge Disposition: Home or Self Care (Routine Discharge) Social History Tobacco Use Types Packs/Day Years Used Date Smoking Tobacco: Former Cigarettes Smokeless Tobacco: Never Alcohol Use Standard Drinks/Week Comments Not Currently 0 (1 standard drink = 0.6 oz pur e alcohol) Occassionaly. [facility] Utilities Answer Date Recorded In the [...] declined 02/26/2023 How often do you attend mu-ism or gnosticist serv ices? Patient declined 02/26/2023 Do you belong to any clubs o r organizations such as mu-ism groups, unions, fraternal or athletic groups, or [...] Recorded Patient Health Questionnaire-2 Score 0 02/26/2023 [facility] [place] of Occupat ional Health - Occupational Stress [...] Sexual Orientation Straight 02/26/2023 1: 40 PM SURFACE ROOM SHOP OPTICIAN documented as of this encounter Functional Status * Are you deaf or do you have serious difficulty hearing Answer Date of Assessment Author Status No 06/21/2023 11:27 AM SURFACE ROOM SHOP OPTICIAN Yanira Castellanos RN Active * Are you [...] by mouth 2 (two) times a day. [place]-3 Fatty Acids (FISH OIL) 500 MG capsule [...] st Contact Info) Description 04/29/2024 1:45 PM SURFACE ROOM SHOP OPTICIAN Office Visit [address] [address] Sujatha Solis, VICE PRESIDENT PAYER- [address] [facility] [place] [address] documented as of this encounter Procedures Procedure Name Priority Date/Time Associated Diagnosis Comments XR KNEE STAND AP JENNIE ONLY Routine 08/24/2023 9:14 AM CDT Right knee pain, unspecified chronicity XR KNEE RT 2V Routine 08/24/2023 9:14 AM CDT Right knee pain, unspecified chronicity documented in this encounter Results * XR KNEE STAND AP JENNIE ONLY (08/24/2023 9:14 AM CDT) Anatomical Region Laterality Modality Knee Radiographic Chanel ging 08/24/2023 2:15 PM CDT Impressions 08/24/2023 2:19 PM CDT IMPRESSION: 1. ??NO SIGNIFICANT RADIOGRAPHIC ABNORMALITY. Signed: Xavier Reis MD Referred By: ?? Interpreted By: Xavier Reis MD, 08/24/2023 2:15 PM Narrative 08/24/2023 2:19 PM CDT PATIENT NAME: DONNA Harden CHAKA EXAM: Bilateral knee 2 view, right knee [...] Reis MD - 08/24/2023 PATIENT NAME: DONNA SEGUNDOULTS EXAM: Bilateral knee 2 view, right knee [...] PM Candida [facility] Final Result documented in this encounter Visit Diagnoses Diagnosis Right knee pain, unspecified chronicity documented in this encounter Care Teams Commodity Buyer Relationship Specialty Start Date End Date Asif Coto DO [facility] [place] [address] PCP - General FAMILY PRACTICE 09/29/21 documented as of this encounter
--- OUTSIDE RECORDS SUMMARY | 2024-04-23 21:36 | XMS_ITS | Encounter Summary ---
Author Organization [facility] Address [address] [place] [address]. [place] [address] [place] [address] Care Team Providers Care Adult Daycare Coordinator Name Role Phone Asif Coto DO Primary Care Provider [phone] Encounter Details Date Type Department Care Team (Latest Contact Info) Description 11/14/2023 10:24 AM T - 11/14/2023 11:59 PM [facility] Encounter [facility] [address] [place] [address] Abdoul Ventura Jr., DO [address] [place] [address] Discharge Disposition: Home or Self Care (Routine Discharge) Social History Tobacco Use Types Packs/Day Years Used Date Smoking Tobacco: Former Cigarettes Smokeless Tobacco: Never Alcohol Use Standard Drinks/Week Comments Not Currently 0 (1 standard drink = 0.6 oz pur e alcohol) Occassionaly. [facility] Utilities Answer Date Recorded In the past [...] declined 02/26/2023 How often do you attend latter day or latter-day serv ices? Patient declined 02/26/2023 Do you belong to any clubs o r organizations such as latter day groups, unions, fraternal or athletic groups, or [...] Questionnaire-2 Score 0 02/26/2023 [facility] [place] of Occupat ional Health - Occupational Stress [...] place to sleep or slept in a fpc (including now)? No 02/26/2023 Comments No Sex and Gender Information Value Date Recorded Sex Assigned at Female 08/07/2022 4:17 PM CDT Legal Sex Female 8:54 PM CDT Gender Identity Female 08/07/2022 4:17 PM CDT Sexual Orientation Straight 02/26/2023 1: 40 PM DIE ENGRAVING SUPERVISOR documented as of this encounter Functional Status [...] by mouth 2 (two) times a day. [place]-3 Fatty Acids (FISH OIL) 500 MG capsule [...] by mouth daily. meloxicam (MOBIC) 15 MG tabletIndications:P rimary osteoarthritis [...] st Contact Info) Description 04/29/2024 1:45 PM DIE ENGRAVING SUPERVISOR Office Visit [address] [place] [address] Sujatha Solis, [facility]- [address] [place] [address] documented as of this encounter Procedures Procedure Name Priority Date/Time Associated Diagnosis Comments SED RATE, ERYTHROCYTE (ESR) Routine 11/14/2023 10:29 AM CDT Pain due to total right knee replacement, initial encounter ([facility]) C-REACTIVE PROTEIN Routine 11/14/2023 10 :29 AM CDT Pain due to total right knee replacement, initial encounter ([facility]) documented in this encounter Results * C-REACTIVE PROTEIN (11/14/2023 10:29 AM CDT) C-REACTIVE PROTEIN 0.14 <0.30 mg/dL 11/14/2023 10:44 AM CDT [facility] 11/14/2023 10:2 9 AM CDT us Abdoul Ventura Jr., DO LABORATORY Final Re sult Performing Organization Address [facility] Co de Phone Number [facility] [address] [place] [address], [place] [phone] * (ABNORMAL) SED RATE, ERYTHROCYTE (ESR) (11/14/2023 10:29 AM CDT) ESR 23(H) 0 - 20 MM/HR 11/14/2023 11:40 AM CDT [facility] Comment:NOTE: ANEMIA, IF PRE SENT, MAY CAUSE AN ELEVATED SEDIMENTATION RATE. 11/14/2023 10:2 9 AM CDT us Abdoul Ventuar Jr., DO LABORATORY Final Re luxt Performing Organization Address [facility] de Phone Number [facility] [address] [place] [address], [place] [phone] documented in this encounter Visit Diagnoses Diagnosis Pain due to total right knee replacement, initial encounter (CMS/HCC) documented in this encounter Care Teams Adult Daycare Coordinator Relationship Specialty Start Date End Date Asif Coto DO [address] [place] [address] PCP - General FAMILY PRACTICE 09/29/21 documented as of this encounter
--- OUTSIDE RECORDS SUMMARY | 2024-04-23 21:36 | XMS_ITS | Encounter Summary ---
Author Organization [facility] Address [address] [place] [address]. [place] [address] [place] [address] Care Team Providers Care Assistant Branch Operations Manager Name Role Phone Asif Coto DO Primary Care Provider [phone] Encounter Details Date Type Department Care Team (Late st Contact Info) Description 01/22/2024 Orders Only [facility] [address] [facility] [address] [place] [address] Yudelka Howe PA [address] [place] [address] Social History Tobacco Use Types Packs/Day Years Used Date Smoking Tobacco: Former Cigarettes Smokeless Tobacco: Never Alcohol Use Standard Drinks/Week Comments Not Currently 0 (1 standard drink = 0.6 oz pur e alcohol) Occassionaly. [facility] Utilities Answer Date Recorded In the past 12 months has [employer], gas, oil, or water [employer] threatened to shut off services in your [...] How often do you attend christianity or buddhist serv ices? Patient declined 02/26/2023 [...] Recorded Patient Health Questionnaire-2 Score 0 02/26/2023 [facility] of Occupat ional Health - Occupational Stress [...] Sexual Orientation Straight 02/26/2023 1: 40 PM TOLL SERVICE OBSERVER documented as of this encounter Functional Status [...] st Contact Info) Description 04/29/2024 1:45 PM TOLL SERVICE OBSERVER Office Visit [facility] [address] [address] Sujatha Solis, UNLEAVENED DOUGH MIXER- [address] [facility] [place] [address] documented as of this encounter Results * XR KNEE LT 3V (01/22/2024 10:52 AM CDT) Anatomical Region Laterality Modality Knee Radiographic Chanel ging 01/22/2024 4:25 PM CDT Impressions 01/22/2024 4:26 PM CDT IMPRESSION: No acute findings. Stable degenerative changes. Ordered By: YUDELKA HOWE Interpreted By: Abimael Shannon MD, 01/22/2024 4:25 PM Narrative 01/22/2024 4:26 PM CDT [address] [place] [address] Examination: Left knee. Exam time: 0944 hours. Clinical history: Pain. Comparison: 08/08/2022. Technique: [place] and weightbearing AP and lateral views. Findings: No fracture, dislocation or other acute bony abnormality is identified. There are stable mild degenerative changes manifested by patellofemoral and medial femorotibial joint space narrowing and periarticular osteophyte formation. No other significant bone or joint abnormality is noted. The soft tissues are unremarkable. Procedure Note Abimael Shannon MD - 01/22/2024 [facility] [address] [facility] [place] [address] Examination: Left knee. Exam time: 0944 hours. Clinical history: Pain. Comparison: 08/08/2022. Technique: [place] and weightbearing AP and lateral views. Findings: [...] Shannon MD, 01/22/2024 4:25 PM us Yudelka Howe [facility] Final Result documented in this encounter Visit Diagnoses Diagnosis Acute pain of left knee Acute pain of left knee documented in this encounter Care Teams Assistant Branch Operations Manager Relationship Specialty Start Date End Date Asif Coto DO [address] [place] [address] PCP - General FAMILY PRACTICE 09/29/21 documented as of this encounter
--- OUTSIDE RECORDS SUMMARY | 2024-04-23 21:36 | XMS_ITS | Encounter Summary ---
Author Organization [facility] Address [address] [place] [address]. [place] [address] [place] [address] Care Team Providers Care Mechanical Spreader Operator Name Role Phone Nnamdi Asif GANDARA Primary Care Provider [phone] Encounter Details Date Type Department Care Team (Latest Contact Info) Description 08/14/2023 Travel Social History Tobacco Use Types Packs/Day Years Used Date Smoking Tobacco: Former Cigarettes Smokeless Tobacco: Never Alcohol Use Standard Drinks/Week Comments Not Currently 0 (1 standard drink = 0.6 oz pur e alcohol) Occassionaly. [facility] Utilities Answer Date Recorded In the past 12 months has [employer], gas, oil, or water [employer] threatened to shut off services in your [...] How often do you attend orthodox or zoroastrianism serv ices? Patient declined 02/26/2023 [...] Recorded Patient Health Questionnaire-2 Score 0 02/26/2023 [facility] of Occupat ional Health - [...] place to sleep or slept in a intermediate (including now)? No 02/26/2023 Comments No Sex and Gender Information Value Date Recorded Sex Assigned at Female 08/07/2022 4:17 PM CDT Legal Sex Female 8:54 PM CDT Gender Identity Female 08/07/2022 4:17 PM CDT Sexual Orientation Straight 02/26/2023 1: 40 PM LUNCHEONETTE MANAGER documented as of this encounter Functional [...] Date Author Status No 06/21/2023 11:27 AM LUNCHEONETTE MANAGER Yanira Castellanos, RN Active documented in this encounter Plan of Treatment Upcoming Encounters Date Type Department Care Team (Late st Contact Info) Description 04/29/2024 1:45 PM LUNCHEONETTE MANAGER Office Visit [facility] [address] [address] Sujatha Solis, [facility]- [address] [place] [address] [place] [address] documented as of this encounter Visit Diagnoses Not on filedocumented in this encounter Care Teams Mechanical Spreader Operator Relationship Specialty Start Date End Date Asif Coto DO [address] [place] [address] PCP - General FAMILY PRACTICE 09/29/21 documented as of this encounter
--- OUTSIDE RECORDS SUMMARY | 2024-04-23 21:36 | XMS_ITS | Encounter Summary ---
Author Organization [facility] Address [address] [place] [address]. [place] [address] [place] [address] Care Team Providers Care It Risk And Assurance Manager Name Role Phone Asif Coto DO Primary Care Provider [phone] Reason for Referral * Imaging (Routine) - Closed Specialty Diagnoses / Procedures Referred By Contac t Referred To Contact RADIOLOGY Diagnoses Pain due to total right knee replacement, initial encounter (CMS/HCC) Procedures NM BONE SCAN 3 PHASE Hugo Ventura Jr., [address] [place] [address] Phone: tel: fax: Referral ID Status Reason Start Date Expiration Date Visits Re quested Visits Authorized [id number] Closed 11/05/2023 11/04/2024 2 2 Reason for Visit * Imaging (Routine) - Closed Specialty Diagnoses / Procedures Referred By Contac t Referred To Contact RADIOLOGY Diagnoses Pain due to total right knee replacement, initial encounter (CMS/HCC) Procedures NM BONE SCAN 3 PHASE Hugo Ventura Jr., DO [address] [place] [address] Phone: tel: fax: Referral ID Status Reason Start Date Expiration Date Visits Re quested Visits Authorized [id number] Closed 11/05/2023 11/04/2024 2 2 Encounter Details Date Type Department Care Team (Latest Contact Info) Description 11/14/2023 9:29 AM CDT - 11/14/2023 10:23 AM CDT Hospital Encounter [facility] [address] [place] [address] Hugo Ventura Jr., DO [address] [place] [address] Discharge Disposition: Home or Self Care (Routine Discharge) Social History Tobacco Use Types Packs/Day Years Used Date Smoking Tobacco: Former Cigarettes Smokeless Tobacco: Never Alcohol Use Standard Drinks/Week Comments Not Currently 0 (1 standard drink = 0.6 oz pur e alcohol) Occassionaly. [facility] Utilities Answer Date Recorded In the past 12 months has e [employer], gas, oil, or water [employer] threatened to shut off services in your [...] declined 02/26/2023 How often do you attend scientologist or sabianist serv ices? Patient declined 02/26/2023 Do you belong to any clubs o r organizations such as scientologist groups, unions, fraternal or athletic groups, or [...] Recorded Patient Health Questionnaire-2 Score 0 02/26/2023 [facility] of Occupat ional Health - [...] place to sleep or slept in a detention (including now)? No 02/26/2023 Comments No Sex and Gender Information Value Date Recorded Sex Assigned at Female 08/07/2022 4:17 PM CDT Legal Sex Female 8:54 PM CDT Gender Identity Female 08/07/2022 4:17 PM CDT Sexual Orientation Straight 02/26/2023 1: 40 PM RAILROAD MAINTENANCE CLERK documented as of this encounter Functional Status [...] total) by mouth nightly at bedtime. 05/13/2021 [facility] (OSTEO BI-FLEX ADV TRIPLE ST) Tab Take 1 tablet by mouth 2 (two) times a day. [place]-3 Fatty Acids (FISH OIL) 500 MG capsule Take 1,000 mg by mouth daily. OZEMPIC 1 mg/dose injection (PEN) Inject into the skin once a week. 04/06/2023 pantoprazole EC (PROTONIX) 40 MG tablet Take 1 tablet (40 mg total) by mouth daily. 05/17/2023 TRUE METRIX BLOOD GLUCOSE TEST test strip 01/10/2021 TRUEplus Lancets 33G [facility] 01/10/2021 vitamin D3 (CHOLECALCIFEROL) 25 mcg tablet Take 1 tablet (25 mcg total) by mouth daily. meloxicam (MOBIC) 15 MG tabletIndications:P rimary osteoarthritis of left knee Take 1 tablet (15 mg total) by mouth daily. 30 tablet 2 08/14/2023 01/22/20 naloxone (NARCAN) 4 MG/0.1ML nasal spray 1 spray by Nasal route as needed for Opioid reversal. may repeat every 2 to 3 minutes in alternating nostrils until medical assistance becomes available 1 each 02/27/2023 02/27/20 24 documented as of this encounter Plan of Treatment Upcoming Encounters Date Type Department Care Team (Late st Contact Info) Description 04/29/2024 1:45 PM RAILROAD MAINTENANCE CLERK Office Visit [facility] [address] [facility] [place] [address] Irma Sujatha M, GRINDER SETUP OPERATOR-BC [address] [place] [address] documented as of this encounter Procedures Procedure Name Priority Date/Time Associated Diagnosis Comments NM BONE SCAN 3 PHASE Routine 11/14/2023 1:26 PM CDT Pain due to total right knee replacement, initial encounter ([facility]) documented in this encounter Results * NM BONE SCAN 3 PHASE (11/14/2023 1:26 PM CDT) Anatomical Region Laterality Modality Bone Nuclear Medicine 11/15/2023 2:51 PM CDT Impressions 11/15/2023 3:13 PM CDT IMPRESSION: ?? 1. No significant 3 phase positive uptake about the right knee arthroplasty to definitively suggest complication. 2. Mild 3-phase positive uptake along the medial right distal femoral condyle which appears slightly separate from the arthroplasty. This is nonspecific and could be due to a small fracture or stress reaction at this location among other etiologies. Correlation with history and physical exam findings as well as follow-up radiographs may be helpful. Ordered By: HUGO LAGOS V Interpreted By: Niki Luciano MD, 11/15/2023 2:51 PM Narrative 11/15/2023 3:13 PM CDT EXAMINATION: ??BONE SCINTIGRAPHY (THREE-PHASE) DATE OF STUDY: 11/14/2023 RADIOPHARMACEUTICAL: ?? 26.4 mCi Tc-99m MDP i.v. HISTORY: Right knee pain for 5 months. Right knee arthroplasty. FINDINGS: ??A three-phase examination of the knees was performed consisting of radionuclide angiography and ??immediate post-injection images of the knees,and delayed images of the knees. Prior nuclear medicine studies used for comparison: none. Other radiographic comparisons: X-ray right knee 08/24/2023, 01/30/2023, standing view of the knees 08/08/2022 On angiographic phase imaging, there is no significant hyperemia surrounding the right knee arthroplasty. There is faint hyperemia along the medial distal femoral condyle on the right. On blood pool phase imaging, there is mild soft tissue uptake about the femoral component of the right knee arthroplasty with a small amount of focal soft tissue uptake along the medial distal femoral condyle. On osseous phase imaging, there is low-level activity about the right knee arthroplasty. There is a focus of more intense uptake along the medial distal femoral condyle. There is osteoarthritic degenerative uptake involving the left knee. Procedure Note Niki Luciano MD - 11/15/2023 EXAMINATION: BONE SCINTIGRAPHY (THREE-PHASE) DATE OF STUDY: 11/14/2023 RADIOPHARMACEUTICAL: 26.4 mCi Tc-99m MDP i.v. HISTORY: Right knee pain for 5 months. Right knee arthroplasty. FINDINGS: A three-phase examination of the knees was performed consistingof radionuclide angiography and immediate post-injection images of theknees,and delayed images of the knees. Prior nuclear medicine studies used for comparison: none. Other radiographic comparisons: X-ray right knee 08/24/2023, 01/30/2023,standing view of the knees 08/08/2022 On angiographic phase imaging, there is no significant hyperemiasurrounding the right knee arthroplasty. There is faint hyperemia alongthe medial distal femoral condyle on the right. On blood pool phase imaging, there is mild soft tissue uptake about thefemoral component of the right knee arthroplasty with a small amount offocal soft tissue uptake along the medial distal femoral condyle. On osseous phase imaging, there is low-level activity about the right kneearthroplasty. There is a focus of more intense uptake along the medialdistal femoral condyle. There is osteoarthritic degenerative uptakeinvolving the left knee. IMPRESSION: 1. No significant 3 phase positive uptake about the right kneearthroplasty to definitively suggest complication. 2. Mild 3-phase positive uptake along the medial right distal femoralcondyle which appears slightly separate from the arthroplasty. This isnonspecific and could be due to a small fracture or stress reaction atthis location among other etiologies. Correlation with history andphysical exam findings as well as follow-up radiographs may be helpful. Ordered By: HUGO LAGOS V Interpreted By: Niki Luciano MD, 11/15/2023 2:51 PM us Hugo Ventura Jr., DO NUC MED Final Re sult documented in this encounter Visit Diagnoses Diagnosis Pain due to total right knee replacement, initial encounter ([facility]) documented in this encounter Administered Medications Inactive Administered Medications - up to 3 most recent administrations Medication Order MAR Action Action Date Dose Rate Site technetium Tc 99m medronate (DRAXIMAGE MDP) radio-isotope injection 26.4 millicurie 26.4 millicurie, Intravenous, Once, 1 dose, On Sun11/14/23 at 1015, Patients should be hydrated before and after dosing. Patients should void immediately before and frequently after imaging to reduce radiation exposure in bladder. RADIOPHARMACEUTICAL: Use appropriate precautions for handling & disposal. Follow appropriate safety measures to minimize radiation exposure during administration; use waterproof gloves & effective shielding, including syringe cartagena. Given 11/14/2023 10:10 AM CDT 26.4 millicuries Left Arm documented in this encounter Care Teams It Risk And Assurance Manager Relationship Specialty Start Date End Date Asif Coto DO [facility] [place] [address] PCP - General FAMILY PRACTICE 09/29/21 documented as of this encounter
--- OUTSIDE RECORDS SUMMARY | 2024-04-23 21:36 | XMS_ITS | Encounter Summary ---
Author Organization [facility] Address [address] [place] [address]. [place] [address] [place] [address] Care Team Providers Care Hospital Attendant Name Role Phone Asif Hood DO Primary Care Provider [phone] Reason for Referral * Imaging (Routine) - Closed Specialty Diagnoses / Procedures Referred By Caity garcia Referred To Contact RADIOLOGY Diagnoses Pain due to total right knee replacement, initial encounter ([facility]) Procedures NM BONE SCAN 3 PHASE Hugo Ventura Jr., DO [address] [place] [address] Phone: tel: fax: Referral ID Status Reason Start Date Expiration Date Visits Re quested Visits Authorized [id number] Closed 11/05/2023 11/04/2024 2 2 Reason for Visit * Reason Comments Knee Pain RIGHT Encounter Details Date Type Department Care Team (Late st Contact Info) Description 11/05/2023 11:15 AM CDT Office Visit [facility] [address] [place] [address] Hugo Ventura Jr., DO [address] [place] [address] Knee Pain (RIGHT) Social History Tobacco Use Types Packs/Day Years Used Date Smoking Tobacco: Former Cigarettes Smokeless Tobacco: Never Tobacco Cessation:Counseling Given: Not Answered Alcohol Use Standard Drinks/Week Comments Not Currently 0 (1 standard drink = 0.6 oz pur e alcohol) Occassionaly. [facility] Utilities Answer Date Recorded In the [...] declined 02/26/2023 How often do you attend jain or congregation serv ices? Patient declined 02/26/2023 Do you belong to any clubs o r organizations such as jain groups, unions, fraternal or athletic groups, or [...] Recorded Patient Health Questionnaire-2 Score 0 02/26/2023 [facility] of Occupat ional Health - Occupational Stress [...] Sexual Orientation Straight 02/26/2023 1: 40 PM RIM FIRE CHARGER OPERATOR documented as of this encounter Last Filed Vital Signs Vital Sign Reading Time Taken Comments Blood Pressure 122/66 11/05/2023 11:23 AM CDT Pulse 79 11/05/2023 11:23 AM CDT Temperature - - Respiratory Rate - - Oxygen Saturation 97% 11/05/2023 11:23 AM CDT Inhaled Oxygen Concentration - - Weight 70.3 kg (155 lb) 11/05/2023 11:23 AM CDT Height 165.1 cm (5' 5 ) 11/05/2023 11:23 AM CDT Body Mass Index 25.79 11/05/2023 11:23 AM CDT documented in this encounter Functional [...] documented in this encounter Progress Notes * KATIE Rees - 11/05/2023 11:15 AM CDTAddended by: LEELA LAN on: 11/05/2023 01:49 PM Modules accepted: Orders * Manda Bryant, CLINICAL MANAGER - 11/05/2023 11:15 AM CDT Donna is a 67-year-old female who presents for Knee Pain (RIGHT) Patient returns for RIGHT knee pain. She had a TKA to this knee 03/29/2014 with a doctor from [place], she is unsure of name. Her pain is located in the entire knee without radiation. She denies any swelling or numbness. Pain increases with ambulation. She has increased night time pain. She takes Tylenol with poor relief. She uses a heating pad and a knee brace with some relief. She uses a cane for ambulation. She is retired. [x] Scheduled diagnostic exams related to this visit (i.e. CT, MRI) Vitals: 11/05/23 1123 BP: 122/66 BP Location: Left arm Patient Position: Sitting Cuff size: Adult Regular Pulse: 79 Weight: 70.3 kg (155 lb) Height: 1.651 [...] alternating nostrils until medical assistance becomes available [place]-3 Fatty Acids (FISH OIL) 500 MG capsule [...] 2-octylcyanoacrylate [cyanoacrylate] and Adhesive [vinyl] [x] Total [id number]-ok-Xfxj Assessment Time: 16-30 minutes Additional Contributory Factors NONE * Hugo Ventura Jr., DO - 11/05/2023 11:15 AM CDT Images from the original note were not included. ORTHOPAEDIC SURGERY - PROGRESS NOTE Outpatient Primary Care Provider: ASIF HOOD DO Consulting Physician: Reason for Consultation: Chief Complaint Patient presents with Knee Pain RIGHT Assessment/Plan Donna Saunders is a 67-year-old female with the following medical problems: No diagnosis found. Plan: I reviewed her x-ray and physical exam findings. I am recommending blood work a CRP and a sedrate. Also a three-phase bone scan to rule out loosening. I will see her back after is completed. Physical Exam Filed Vitals: 11/05/23 1123 BP: 122/66 Pulse: 79 SpO2: 97% Weight: 70.3 kg (155 lb) Height: 1.651 m (5' 5 ) General - Alert, no acute distress. Respiratory - Non-labored respirations. Cardiovascular - Limbs are warm and well perfused. Abdomen - Soft, non-tender, non-distended. Musculoskeletal - PHYSICAL EXAM Exam of the right knee shows well-healed scar. There is no effusion. No swelling is noted. She has full extension to 120 degrees of flexion slight laxity with valgus stress test but firm endpoint. Pulses - 2+ pedal pulses with brisk capillary refill in the toes. Diagnostic Studies / Procedures Xray: 06/30/2023 CBC Tests WBC 11.43 RBC 3.75 HGB 10.4 HCT 31.9 MCV 85.1 MCH 27.7 MCHC 32.6 RDW 13.7 PLT 528 MPV 9.0 ABS. NEUTROPHILS 8.16 ABS. LYMPHOCYTES 1.80 ABS. MONOCYTES 1.00 ABS. EOSINOPHILS 0.32 No data to display 06/30/2023 CMP Labs POTASSIUM S/P/B 4.2 SODIUM S/P/B 138 CHLORIDE S/P/B 101 CO2 29.2 GLUCOSE 98 BUN 19 CREATININE S/P/B 1.10 CALCIUM S/P/B 9.1 BILIRUBIN TOTAL S/P/B 0.3 ALKALINE PHOSPHATASE S/P/B 98 AST 33 ALT 38 TOTAL PROTEIN S/P/B 6.0 ALBUMIN S/P/B 3.0 ANION GAP 7.8 OSMOLALITY (CALC) 288 GFR ESTIMATE 55 GFR NOTES GFR REFERENCES: No results found for: CRP , ESR Chief Complaint Chief Complaint Patient presents with Knee Pain RIGHT History of Present Illness Patient returns for RIGHT knee pain. She had a TKA to this knee 03/29/2014 with a doctor from [place], she is unsure of name. Her pain is located in the entire knee without radiation. She denies any swelling or numbness. Pain increases with ambulation. She has increased night time pain. She takes Tylenol with poor relief. She uses a heating pad and a knee brace with some relief. She uses a cane for ambulation. She is retired. Knee Pain Review of Systems Negative other than that which is mentioned in the HPI. 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 Rader Allergies Allergen Reactions 2-Octylcyanoacrylate [Cyanoacrylate] Hives, Rash and Swelling Dermabond Adhesive [Vinyl] Rash and Swelling Possibly Dermabond adhesive, used after surgery Family History Problem Relation Name Age of Onset Other (heart problems) Mother Cancer Father Thyroid Disease Other Social History Socioeconomic History Marital status: Tobacco [...] min Stress: No Stress Concern Present (02/26/2023) [facility]ational [facility] - Occupational Stress Questionnaire Feeling of Stress : Not at all Social Connections: Unknown (02/26/2023) Social Connection and Isolation Panel [NHANES] Frequency of Communication with Friends and Family: Patient declined Frequency of Social Gatherings with Friends and Family: Patient declined Attends Caodaism Services: Patient declined Active Member of Clubs [...] Unstable Housing in the Last Year: No Current Outpatient Medications: amLODIPine 10 MG tablet, [...] becomes available, Disp: 1 each, Rfl: PRN [place]-3 Fatty Acids (FISH OIL) 500 MG capsule, Take 1,000 mg by mouth daily., Disp: , Rfl: OZEMPIC 1 mg/dose injection (PEN), Inject into the skin once a week., Disp: , Rfl: pantoprazole EC (PROTONIX) 40 MG tablet, Take 1 tablet (40 mg total) by mouth daily., Disp: , Rfl: TRUE METRIX BLOOD GLUCOSE TEST test strip, , Disp: , Rfl: TRUEplus Lancets 33G [facility] [place] , Disp: , Rfl: vitamin D3 (CHOLECALCIFEROL) 25 mcg tablet, Take 1 tablet (25 mcg total) by mouth daily., Disp: , Rfl: @SIGNATURE@ . Grady Ventuar MD Orthopedic Surgeon Adult Hip and Knee Reconstruction [facility] Some of the information written in this document may have been copied and added to this document from the note of another provider. I agree with all of the information described above. Part or all of the information in this document was transcribed using a voice command transcriptionsoftware. I reviewed this note for errors, however; spelling errors or other inaccuracies may persist. documented in this encounter Plan of Treatment Upcoming Encounters Date Type Department Care Team (Late st Contact Info) Description 04/29/2024 1:45 PM RIM FIRE CHARGER OPERATOR Office Visit [address] [address] Sujatha Solis, LABORER FILTER PLANT- [address] [facility] [place] [address] documented as of this encounter Results * NM BONE SCAN [...] to total right knee replacement, initial encounter (CMS/HCC)- Primary Pain due to total right knee replacement, initial encounter ([facility]) documented in this encounter Care Teams Hospital Attendant Relationship Specialty Start Date End Date Asif Hood DO [address] [place] [address] PCP - General FAMILY PRACTICE 09/29/21 documented as of this encounter
--- OUTSIDE RECORDS SUMMARY | 2024-04-23 21:36 | XMS_ITS | Encounter Summary ---
Author Organization [facility] Address [address] [place] [address]. [place] [address] [place] [address] Care Team Providers Care Machine Operator Replanter Name Role Phone Nnamdi Asif GANDARA Primary Care Provider [phone] Encounter Details Date Type Department Care Team (Latest Contact Info) Description 12/10/2023 Travel Social History Tobacco Use Types Packs/Day Years Used Date Smoking Tobacco: Former Cigarettes Smokeless Tobacco: Never Alcohol Use Standard Drinks/Week Comments Not Currently 0 (1 standard drink = 0.6 oz pur e alcohol) Occassionaly. [facility] Utilities Answer Date Recorded In the past 12 months has [employer], gas, oil, or water [employer] threatened to shut off services in your [...] How often do you attend islam or zoroastrianism serv ices? Patient declined 02/26/2023 [...] Recorded Patient Health Questionnaire-2 Score 0 02/26/2023 [facility] of Occupat ional Health - Occupational [...] place to sleep or slept in a group home (including now)? No 02/26/2023 Comments No Sex and Gender Information Value Date Recorded Sex Assigned at Female 08/07/2022 4:17 PM CDT Legal Sex Female 8:54 PM CDT Gender Identity Female 08/07/2022 4:17 PM CDT Sexual Orientation Straight 02/26/2023 1: 40 PM MMI TEACHER documented as of this encounter Functional Status [...] Date Author Status No 06/21/2023 11:27 AM MMI TEACHER Yanira Castellanos, RN Active documented in this encounter Plan of Treatment Upcoming Encounters Date Type Department Care Team (Late st Contact Info) Description 04/29/2024 1:45 PM MMI TEACHER Office Visit [facility] [address] [address] Sujatha Solis, [facility]- [address] [place] [address] [place] [address] documented as of this encounter Visit Diagnoses Not on filedocumented in this encounter Care Teams Machine Operator Replanter Relationship Specialty Start Date End Date Asif Coto DO [address] [place] [address] PCP - General FAMILY PRACTICE 09/29/21 documented as of this encounter
--- OUTSIDE RECORDS SUMMARY | 2024-04-23 21:36 | XMS_ITS | Encounter Summary ---
Author Organization [facility] Address [address] [place] [address]. [place] [address] [place] [address] Care Team Providers Care Dance Teacher Name Role Phone MushtaqAsif hanson Primary Care Provider [phone] Encounter Details Date Type Department Care Team (Late st Contact Info) Description 07/10/2023 Orders Only [facility] [address] [place] [address], [facility] [address] [place] [address] Roldan Rader MD [address] [place] [address] Social History Tobacco Use Types Packs/Day Years Used Date Smoking Tobacco: Former Cigarettes Smokeless Tobacco: Never Alcohol Use Standard Drinks/Week Comments Not Currently 0 (1 standard drink = 0.6 oz pur e alcohol) Occassionaly. [facility] Utilities Answer Date Recorded In the past 12 months has [employer], gas, oil, or water [employer] threatened to shut off services in your [...] declined 02/26/2023 How often do you attend denominational or sikh serv ices? Patient declined 02/26/2023 Do you belong to any clubs o r organizations such as denominational groups, unions, fraternal or athletic groups, or [...] place to sleep or slept in a halfway (including now)? No 02/26/2023 Comments No Sex and Gender Information Value Date Recorded Sex Assigned at Female 08/07/2022 4:17 PM CDT Legal Sex Female 8:54 PM CDT Gender Identity Female 08/07/2022 4:17 PM CDT Sexual Orientation Straight 02/26/2023 1: 40 PM ACADEMIC PHYSICIAN documented as of this encounter Functional Status [...] Assessment Author Status No 06/21/2023 11:27 AM ACADEMIC PHYSICIAN Yanira Castellanos RN Active documented as of [...] st Contact Info) Description 04/29/2024 1:45 PM ACADEMIC PHYSICIAN Office Visit [facility] [address] [facility] 1 [place] [address] Sujatha Solis, [facility]- [address] [place] [address] documented as of this encounter Results * [...] By: Larry Abel MD, 07/11/2023 10:17 AM Roldan Rader MD GENERAL IMAGING Final Result documented in this encounter Visit Diagnoses Diagnosis Follow-up examination after orthopedic surgery- Primary Follow-up examination, following other surgery Left hip pain Pain in joint, pelvic region and thigh Follow-up examination after orthopedic surgery Follow-up examination, following other surgery documented in this encounter Care Teams Dance Teacher Relationship Specialty Start Date End Date Asif Coto DO [address] [place] [address] PCP - General FAMILY PRACTICE 09/29/21 documented as of this encounter
--- OUTSIDE RECORDS SUMMARY | 2024-04-23 21:37 | XMS_ITS | Encounter Summary ---
Author Organization [facility] Address [address] [place] [address]. [place] [address] [place] [address] Care Team Providers Care Draw Hand Name Role Phone NnamdiAsif Primary Care Provider [phone] Reason for Referral * (Routine) - Closed Specialty Diagnoses / Procedures Referred By Contac t Referred To Contact Procedures PT Eval and Roldan Virk MD [address] [place] [id number] Phone: tel: fax: Referral ID Status Reason Start Date Expiration Date Visits Re quested Visits Authorized [id number] Closed 02/26/2023 02/27/2024 1 1 UNICATIONS DEPARTMENT HEAD * (Routine) - Closed Specialty Diagnoses / Procedures Referred By Contac t Referred To Contact Procedures OT Eval and Roldan Virk MD [address] [place] [id number] Phone: tel: fax: Referral ID Status Reason Start Date Expiration Date Visits Re quested Visits Authorized [id number] Closed 02/26/2023 02/27/2024 1 1 UNICATIONS DEPARTMENT HEAD Reason for Visit * Auth/Cert (Routine) Specialty Diagnoses / Procedures Referred By Contac t Referred To Contact Diagnoses 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 Procedures NONE RIGHT TOTAL HIP ARTHROPLASTY Roldan Olvera MD [address] [place] [address] Phone: tel: fax: Referral ID Status Reason Start Date Expiration Date Visits Re quested Visits Authorized [id number] 1 1 Encounter Details Date Type Department Care Team (Latest Contact Info) Description 02/26/2023 8:02 AM COMMUNICATIONS DEPARTMENT HEAD - 02/27/2023 2:15 PM COMMUNICATIONS DEPARTMENT HEAD Hospital Encounter [facility] [address] [place] [address] Roldan Olvera MD [address] [place] [address] Discharge Disposition: Home or Self Care (Routine Discharge) Social History Tobacco Use Types Packs/Day Years Used Date Smoking Tobacco: Former Cigarettes Smokeless Tobacco: Never Alcohol Use Standard Drinks/Week Comments Not Currently 0 (1 standard drink = 0.6 oz pur e alcohol) [facility] Utilities Answer Date Recorded In the past 12 months has [employer], gas, oil, or water [employer] threatened to shut off services in your [...] declined 02/26/2023 How often do you attend sikh or restoration serv ices? Patient declined 02/26/2023 Do you belong to any clubs o r organizations such as sikh groups, unions, fraternal or athletic groups, or [...] Recorded Patient Health Questionnaire-2 Score 0 02/26/2023 [facility] - Occupational Stress Questionnaire Answer Date Recorded [...] place to sleep or slept in a fdc (including now)? No 02/26/2023 Comments No Sex and Gender Information Value Date Recorded Sex Assigned at Female 08/07/2022 4:17 PM CDT Legal Sex Female 8:54 PM CDT Gender Identity Female 08/07/2022 4:17 PM CDT Sexual Orientation Straight 02/26/2023 1: 40 PM COMMUNICATIONS DEPARTMENT HEAD documented as of this encounter Last Filed Vital Signs Vital Sign Reading Time Taken Comments Blood Pressure 116/49 02/27/2023 12:22 PM COMMUNICATIONS DEPARTMENT HEAD Pulse 86 02/27/2023 12:22 PM COMMUNICATIONS DEPARTMENT HEAD Temperature 36.9 ??C (98.4 ??F) 02/27/2023 12:[address] Respiratory Rate 17 02/27/2023 12:22 PM COMMUNICATIONS DEPARTMENT HEAD Oxygen Saturation 93% 02/27/2023 12:22 PM COMMUNICATIONS DEPARTMENT HEAD Inhaled Oxygen Concentration - - Weight 74.8 kg (165 lb) 02/26/2023 1:15 PM COMMUNICATIONS DEPARTMENT HEAD Height 165.1 cm (5' 5 ) 02/26/2023 1:15 PM COMMUNICATIONS DEPARTMENT HEAD Body Mass Index 27.46 02/26/2023 1:15 PM COMMUNICATIONS DEPARTMENT HEAD documented in this encounter Functional Status * Question Answer Date of Assessment Author Status Do you have serious difficulty walking or climbing stairs? No 02/26/2023 1:46 PM COMMUNICATIONS DEPARTMENT HEAD Casie Mcduffie RN A ctive * Question Answer Date of Assessment Author Status Do you have difficulty dressing or bathing? No 02/26/2023 1:46 PM COMMUNICATIONS DEPARTMENT HEAD Casie Mcduffie RN Active Because of a physical, mental, or emotional condition, do you have difficulty doing errands alone such as visiting a doctor's office or shopping? No 02/26/2023 1:46 PM COMMUNICATIONS DEPARTMENT HEAD Casie Mcduffie RN Ac tive * Are you deaf or do you have serious difficulty hearing Answer Date of Assessment Author Status No 02/26/2023 1:46 PM COMMUNICATIONS DEPARTMENT HEAD Casie Mcduffie RN Active * Are you blind or do you have serious difficulty seeing, even when wearing glasses? Answer Date of Assessment Author Status No 02/26/2023 1:46 PM COMMUNICATIONS DEPARTMENT HEAD Casie Mcduffie RN Active * Do you have serious difficulty walking or climbing stairs? Answer Date of Assessment Author Status No 02/26/2023 1:46 PM COMMUNICATIONS DEPARTMENT HEAD Casie Mcduffie RN Active * Do you have difficulty dressing or bathing? Answer Date of Assessment Author Status No 02/26/2023 1:46 PM COMMUNICATIONS DEPARTMENT HEAD Casie Mcduffie RN Active * Because of a physical, mental, or emotional condition, do you have difficulty doing errands alone such as visiting a doctor's office or shopping? Answer Date of Assessment Author Status No 02/26/2023 1:46 PM Casie Stratton RN Active documented as of this encounter Mental Status * Question Answer Entry Date Author Status Because of a physical, mental, or emotional condition, do you have serious difficulty concentrating, remembering, or making decisions? No 02/26/2023 1:46 PM COMMUNICATIONS DEPARTMENT HEAD Casie Mcduffie RN Active * Because of a physical, mental, or emotional condition, do you have serious difficulty concentrating, remembering, or making decisions? Answer Entry Date Author Status No 02/26/2023 1:46 PM Casie Stratton RN Active documented in this encounter Discharge Summaries * Roldan Olvera MD - 02/27/2023 2:15 PM CST Physician Discharge Summary Patient ID: Donna Saunders [id number] 67-year-old 1955 Primary Care Physician: ASIF HOOD DO Admit date: 02/26/2023 Expected Discharge Date: 02/27/2023 Admitting Physician: Roldan Olvera MD Discharge Physician: Same Admission Diagnoses: 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 [M16.31] Osteoarthritis of right hip [M16.11] Discharge Diagnoses: Same Admission Condition: good Discharged Condition: good Indication for Admission: Right total hip arthroplasty using a dual mobility implant Hospital Course: Patient is a 67-year-old female who underwent elective right hip replacement. Postoperatively she was admitted with routine infection and DVT prophylaxis and mobilized with therapy. She demonstrated functional independence and was discharged home with follow-up instructions from leela. out patient physical therapy is arranged. She will continue with an aspirin twice a day forDVT prophylaxis and I provided a prescription for pain medication as well as instructions to manageher Aquacel dressing Consults: none Code Status: Prior Procedures: Procedures (From admission, onward) HEMOGLOBIN AND HEMATOCRIT Routine XR PELVIS 1 OR 2 VIEWS Today Referrals: No orders of the defined types were placed in this encounter. Significant Diagnostic Studies: Treatments: surgery: Right total hip arthroplasty Discharge Exam: Patient is neurovascularly intact. Her Aquacel dressing is intact with minimal drainage Disposition: Home or Self Care (Routine Discharge) Patient Instructions: Discharge Medication List as of 02/27/2023 2:07 PM START taking these medications Details aspirin EC (ECOTRIN) 81 MG tablet Take 1 tablet (81 mg total) by mouth 2 (two) times daily with meals for 41 days., Starting Sun02/27/2023, Until Sun04/09/2023, OTC naloxone (NARCAN) 4 MG/0.1ML nasal spray 1 spray by Nasal route as needed for Opioid reversal. may repeat every 2 to 3 minutes in alternating nostrils until medical assistance becomes available, Starting Sun02/27/2023, Until Sun02/27/2024 at 2359, Eprescribe oxyCODONE-acetaminophen (PERCOCET) 5-325 MG tablet Take 1-2 tablets by mouth every 6 (six) hours asneeded for Pain. Indications: Acute Pain < 7 Day Supply, Starting Sun02/27/2023, Eprescribe CONTINUE these medications which have NOT CHANGED Details amLODIPine 10 MG tablet Take 1 tablet (10 mg total) by mouth daily., Starting Sun06/27/2021, Historical Med atorvastatin 40 MG tablet Take 1 tablet (40 mg total) by mouth daily., Starting Sun06/03/2021, Historical Med baclofen (LIORESAL) 5 MG tablet Take 2 tablets (10 mg total) by mouth 2 (two) times daily., Starting Sun02/23/2023, Historical Med Blood Glucose Monitoring Suppl (TRUE METRIX METER) w/Device Kit Starting Sun01/10/2021, Historical Med Coconut Oil 1000 MG Cap Take 3,000 mg by mouth 2 (two) times a day., Historical Med cyanocobalamin (B-12) 1000 MCG/ML injection Inject 4 mLs (4,000 mcg total) into the muscle once a week., Starting Sun07/11/2022, Historical Med cyclobenzaprine (FLEXERIL) 5 MG tablet Take 1 tablet (5 mg total) by mouth 2 (two) times daily as needed., Starting Sun07/13/2022, Historical Med HYDROMORPHONE HCL IJ Via internal pump, Historical Med Levothyroxine Sodium 50 MCG Cap Take 75 mcg by mouth every morning., Starting Sun07/25/2022, Historical Med lisinopril (PRINIVIL) 5 MG tablet Take 1 tablet (5 mg total) by mouth daily., Starting Sun12/29/2020, Historical Med losartan (COZAAR) 50 MG tablet Take 1 tablet (50 mg total) by mouth daily., Historical Med meloxicam (MOBIC) 15 MG tablet Take 0.5 tablets (7.5 mg total) by mouth daily., Starting Sun08/08/2022, Eprescribe metFORMIN ER 500 MG 24 hr tablet Take 1 tablet (500 mg total) by mouth nightly at bedtime., Starting Sun05/13/2021, Historical Med Misc Natural Products (OSTEO BI-FLEX ADV TRIPLE ST) Tab Take 1 tablet by mouth 2 (two) times a day., Historical Med [place]-3 Fatty Acids (FISH OIL) 500 MG capsule Take 1,000 mg by mouth daily., Historical Med OZEMPIC, 0.25 OR 0.5 MG/DOSE, 2 MG/3ML injection (PEN) Inject 0.25 mg into the skin every 7 days. Sunday, Starting Sun01/23/2023, Historical Med traZODone 50 MG tablet Take 1 tablet (50 mg total) by mouth nightly at bedtime., Starting Sun05/12/2021, Historical Med TRUE METRIX BLOOD GLUCOSE TEST test strip Starting Sun01/10/2021, Historical Med TRUEplus Lancets 33G Misc Starting Sun01/10/2021, Historical Med vitamin D3 (CHOLECALCIFEROL) 25 mcg tablet Take 1 tablet (25 mcg total) by mouth daily., HistoricalMed eszopiclone (LUNESTA) 1 MG tablet Take 1 tablet (1 mg total) by mouth nightly at bedtime., StartingWed 02/21/2023, Historical Med Activity: activity as tolerated Diet: regular diet Wound Care: as directed Follow-up with Dr. Olvera in 10-14 days. Signed: ROLDAN OLVERA MD 02/28/2023 5:16 PM UNICATIONS DEPARTMENT HEAD documented in this encounter Medications at Time [...] 2 (two) times daily as needed. 07/13/2022 HYDROMORPHONE HCL IJ Via internal pump lisinopril (PRINIVIL) 5 MG tablet Take 1 tablet (5 mg total) by mouth daily. 12/29/2020 losartan (COZAAR) 50 MG tablet Take 1 tablet (50 mg total) by mouth daily. 08/21/2022 metFORMIN ER 500 MG 24 hr tablet Take 1 tablet (500 mg total) by mouth nightly at bedtime. 05/13/2021 [facility] Natural Products (OSTEO BI-FLEX ADV TRIPLE ST) Tab Take 1 tablet by mouth 2 (two) times a day. [place]-3 Fatty Acids (FISH OIL) 500 MG capsule Take 1,000 mg by mouth daily. TRUE METRIX BLOOD GLUCOSE TEST test strip 01/10/2021 TRUEplus Lancets 33G [facility] 01/10/2021 vitamin D3 (CHOLECALCIFEROL) 25 mcg tablet Take 1 tablet (25 mcg total) by mouth daily. aspirin EC (ECOTRIN) 81 MG tabletIndications:O steoarthritis resulting from right hip dysplasia,Status post total replacement of right hip Take 1 tablet (81 mg total) by mouth 2 (two) times daily with meals for 41 days. 82 tablet 02/27/2023 04/09/20 23 baclofen (LIORESAL) 5 MG tablet Take 2 tablets (10 mg total) by mouth 2 (two) times daily. 02/23/2023 05/31/19 24 eszopiclone (LUNESTA) 1 MG tablet Take 1 tablet (1 mg total) by mouth nightly at bedtime. 02/21/2023 05/31/19 24 Levothyroxine Sodium 50 MCG Cap Take 75 mcg by mouth every morning. 07/25/2022 05/31/19 24 meloxicam (MOBIC) 15 MG tabletIndications:P rimary osteoarthritis of left knee Take 0.5 tablets (7.5 mg total) by mouth daily. 30 tablet 2 08/08/2022 05/09/19 24 naloxone (NARCAN) 4 MG/0.1ML nasal spray 1 spray by Nasal route as needed for Opioid reversal. may repeat every 2 to 3 minutes in alternating nostrils until medical assistance becomes available 1 each 02/27/2023 02/27/20 24 oxyCODONE-acetamino phen (PERCOCET) 5-325 MG tabletIndications:A cute Pain < 7 Day Supply Take 1-2 tablets by mouth every 6 (six) hours as needed for Pain. Indications: Acute Pain < 7 Day Supply 30 tablet 02/27/2023 03/06/20 23 OZEMPIC, 0.25 OR 0.5 MG/DOSE, 2 MG/3ML injection (PEN) Inject 0.25 mg into the skin every 7 days. Sunday01/23/2023 04/17/19 24 traZODone 50 MG tablet Take 1 tablet (50 mg total) by mouth nightly at bedtime. 05/12/2021 06/21/19 24 documented as of this encounter Progress Notes * Shira Greco, ENTRY LEVEL RECEPTIONIST - 02/27/2023 2:15 PM CST 02/27/23 1307 Therapy Visit Ordering Provider Dr. Olvera Subjective Pt supine in bed this afternoon on her phone. Pt states that her hip is really sore and rates her pain an 8 in right hip pre treatment. Reason for admission s/p R HITESH Verified Two Patient Identifiers Yes Patient consents to therapy Yes Acute Inpatient PT Time Calculation PT Start Time 1307 PT Stop Time 1321 PT Time Calculation (min) 14 min Precautions Total Hip Replacement ADduction;Internal rotation;Flexion Weight Bearing Status RLE;As tolerated Instructed on Precautions Yes;Verbalizes understanding Pain Pain Yes Pain Score 8 Location R hip Activity Tolerance Endurance Tolerates 10 - 20 min activity with rests Endurance Quality Fair Limiting Factors to Endurance Pain;Weakness;Fatigue Bed Mobility Supine to Sit Modified independence Sit to Supine Modified independence TRANSFERS Sit to Stand Modified independence Bed to Chair Modified independence Gait Gait Assistance Modified independence Assistive Device 2 Wheeled walker Distance Ambulated (ft) 140 ft Pattern R Decreased stance time Balance Sitting - Static Independent Sitting - Dynamic Independent Standing - Static Modified independence;Support of both upper extremities Standing - Dynamic Modified independence;Support of both upper extremities Exercises Ankle Pumps B x20 Quad Sets R x15 Short Arc Quad R x15 Heelslides R x10 Straight Leg Raise R x10 assisted Glut Sets x15 Hip Abduction R x10 assisted Sitting LE Exercise R LAQ x15 PT Assessment PT Assessment Pt able to increase ambulation distance this afternoon with FWW and modified independent with decrease stance time on R LE without LOB noted. Pt then reviewed and completed her HEP and instructed to complete twice a day until beginning outpatient therapy. Pt verbalizes understanding. Pt does require assistance with hip abduction and single leg raises this afternoon. Pt positioned herself into bed with head elevated and ice to right hip. Call light within reach. Nursing advised that patient is safe for discharge. Pt will begin outpatient therapy later this week in [place]. Discharge Recommendation PT Recommendation Home with assistance;Outpatient PT PT Equipment Recommended 2 Wheeled walker Plan Progress Discontinue PT UNICATIONS DEPARTMENT HEAD * Shira Greco PTA - 02/27/2023 10:44 AM CST 02/27/23 0859 Therapy Visit Ordering Provider Dr. Olvera Subjective Pt supine in bed this morning and agrees to therapy. Pt states that her pain is a 4 in right hip pre treatment. Reason for admission s/p R HITESH Verified Two Patient Identifiers Yes Patient consents to therapy Yes Acute Inpatient PT Time Calculation PT Start Time 0859 PT Stop Time 09 PT Time Calculation (min) 27 min Precautions Total Hip Replacement ADduction;Internal rotation;Flexion Weight Bearing Status RLE;As tolerated Instructed on Precautions Yes;Verbalizes understanding;Needs reinforcement and education Pain Pain Yes Pain Score 4 Location R Hip Activity Tolerance Endurance Tolerates 20 - 30 min activity with rests Endurance Quality Fair Limiting Factors to Endurance Fatigue;Pain;Weakness Bed Mobility Supine to Sit Min assist to left TRANSFERS Sit to Stand Contact guard assist Bed to Chair Contact guard assist Gait Gait Assistance Contact guard assist Assistive Device 2 Wheeled walker Distance Ambulated (ft) 85 ft Pattern R Decreased stance time Balance Sitting - Static Independent Sitting - Dynamic Modified independence;Support of one upper extremity Standing - Static SBA;Support of both upper extremities Standing - Dynamic SBA;Support of both upper extremities PT Assessment PT Assessment Pt does require min A for supine to sit with bringing right leg off of bed. Pt then able to stand from EOB with FWW and CGA and ambulated to restroom with a step to gait pattern with FWW and CGA without LOB noted. Pt demonstrated no LOB during all seated and standing balancing activities while donning clean clothes. Pt then ambulated further in hallway with FWW and CGA/SBA with decrease stance time on RLE without LOB noted. Pt positioned in chair with legs elevated and ice to R hip. Call light within reach. Pt will review her HEP this afternoon and then will be good to discharge. Nursing made aware. Discharge Recommendation PT Recommendation Home with assistance;Outpatient PT PT Equipment Recommended 2 Wheeled walker Plan PT Treatments/Interventions Gait Training;Therapeutic Exercises;Therapeutic Activities Progress Progressing toward goals PT Frequency BID End of Session End of Session Safety Call light within reach;Nursing aware of session UNICATIONS DEPARTMENT HEAD * Casie Mcduffie RN - 02/27/2023 10:24 AM CST Problem: Pain control/comfort Goal: Promote pain control/comfort Outcome: Adequate for Discharge Problem: Skin integrity, Impaired-wound Goal: Absence of new skin breakdown Outcome: Adequate for Discharge Goal: Evidence of wound healing Outcome: Adequate for Discharge Problem: Reduced risk for falls/injury Goal: Reduced Risk for Falls/Injury Outcome: Adequate for Discharge Goal: Reduced Risk of Polypharmacy Outcome: Adequate for Discharge Problem: Balance Goal: STG - Pt to demonstrate static standing balance Description: Of normal, able to stand independently without AD. Outcome: Adequate for Discharge Problem: Mobility Goal: STG - Pt will ambulate Description: 100'x1 mod ind with 2 w/w. Outcome: Adequate for Discharge Problem: Transfers Goal: STG - Pt will perform bed mobility Description: Mod ind with use of railing as needed. Outcome: Adequate for Discharge Goal: STG - Pt will perform sit to stand Description: Mod ind with UE use as needed. Outcome: Adequate for Discharge Goal: STG - Pt will perform stand pivot transfer Description: Mod ind with 2 w/w. Outcome: Adequate for Discharge UNICATIONS DEPARTMENT HEAD * Kiera Mcmanus, OT - 02/27/2023 9:28 AM CST OT Initial Evaluation Discharge Recommendation: home with assistance DME equipment recommendation: 2 wheeled walker Activity Recommendation for compliance reviewer: Up with 1 2ww, posterior hip precautions 02/27/23 0900 Therapy Visit OT Received On 02/27/23 Reason for admission Pt is a 67 yo female who presents with R hip OA. Pt s/p R HITESH 02/26 WBAT RLE with posterior hip precaution....PMH: back pain, DM, HTN, hyperthyroidism, back surgery, knee surgery.....Eval and tx, Ordering Provider Roldan Olvera MD Verified Two Patient Identifiers Yes Patient consents to therapy Yes Acute Inpatient OT Time Calculation OT Start Time 0900 OT Stop Time 927 OT Time Calculation (min) 28 min Precautions Total Hip Replacement ADduction;Internal rotation;Flexion Weight Bearing Status RLE;As tolerated Instructed on Precautions Yes;Verbalizes understanding;Needs reinforcement and education Other R hip [employer] Subjective Subjective Pt supine in bed this morning and agrees to therapy. Pt states that her pain is a 4 in right hip pre treatment. Pain Pain Yes Pain Score 4 Location R hip Interventions Re-positioning;Relaxation;Cryotherapy Activity Tolerance Endurance Quality Good Limiting Factors to Endurance Pain Vision - Basic Assessment Current Vision Wears glasses all the time Vision - Complex Assessment Additional Comments no acute changes Cognition Overall Cognitive Status WFL Arousal/Alertness Appropriate responses to stimuli Attention Span Appears intact Memory Appears intact Orientation Level Oriented X4 Following Commands Follows all commands and directions without difficulty Safety Judgment Good awareness of safety precautions Awareness of Errors Good awareness of errors made Deficits Fully aware of deficits Problem Solving Able to problem solve independently Comments Pt educated on AD for LBD with focus on adherence to posterior hip precautions, home safety, safe use of AD for mobiilty, pain and edema mgmt Motor Planning Appears intact Perseveration Not present Initiation Appears intact Overall Extremity Assessment Upper Extremity BUE WFL AROM and strength Hand Function Hand Dominance Right Gross Grasp Right;Left;Functional Sensation Light Touch No apparent deficits ADL Additional Comments Pt donned underwear, socks, pants, bra and t shirt with setup assistance to [place] with use of graduate school dean and socks aid for LBD increased time and min cues for technique of AD. Bed Mobility Supine to Sit Min assist to left Other (Comment) Pt min A supine to EOB and increased time to scoot outward towards EOB Functional Transfers Sit to Stand SBA/supervision Bed to Chair SBA/supervision Toilet Transfers Grab bars;Supervision Other (Comment) Pt SBA-CGA at times with 2ww in room and hallway mockgin short household distances Balance Sitting - Static Independent Sitting - Dynamic Modified independence;Support of one upper extremity Standing - Static SBA;Support of both upper extremities Standing - Dynamic SBA;Support of both upper extremities Other (Comment) no LOB with 2ww Assessment Occupational Profile and History Complexity Moderate (Expanded) Performance Deficit Level Low (1-3 deficits) Clinical Decision Making Low (no modifications) Complexity Level of Evaluation Low Prognosis Good Discharge Recommendation OT Recommendation Home with assistance;No skilled OT No Skilled OT No acute OT goals identified Plan Progress Discontinue OT OT - Next Appointment 02/27/23 If this is the last treatment note, it will serve as the discharge summary Yes End of Session End of Session Safety Family/friend present with patient;Call light within reach OT will sign off on Pt at this time due to Pt appearing to be at prior level of independence; Pt inagreement. Please send new orders if a change in medical status occurs. Education: Primary Learners Name: Donna Harden Chip Primary Language of learner: Greek Patient educated on stroke rehabilitation management exercises transfers ADLs balance bed mobility equipment therapy plan gait safety. Education was completed one to one verbal hands-on this date. Preference of learning new concepts one to one verbal hands-on Barriers to education this date were pain fatigue. Response to education this date verbalized understanding. UNICATIONS DEPARTMENT HEAD * Elena Guadalupe RN - 02/26/2023 10:52 PM CST Problem: Pain control/comfort Goal: Promote pain control/comfort Outcome: Progressing Note: PRN pain medication available Problem: Skin integrity, Impaired-wound Goal: Absence of new skin breakdown Outcome: Progressing Note: No new breakdown noted Goal: Evidence of wound healing Outcome: Progressing Note: Wound kept clean and dry Problem: Reduced risk for falls/injury Goal: Reduced Risk for Falls/Injury Outcome: Progressing Note: Bed alarm on Goal: Reduced Risk of Polypharmacy Outcome: Progressing Note: RN, MD, and pharmacy collaborating in care UNICATIONS DEPARTMENT HEAD * Casie Mcduffie RN - 02/26/2023 7:09 PM CST Internal dilaudid pain pump, patient controlled, Dr. Olvera/Sujatha Solis aware. UNICATIONS DEPARTMENT HEAD * Checo Greco, PT - 02/26/2023 5:56 PM CST Instructions for Nursing: Pt with very high pain level and not tolerant to position changes. Pt minAx1 for supine-sit transfers. Physical Therapy Inpatient Evaluation Time In: 1632 Time Out: 1645 Donna A Chip 300/01 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 [M16.31] Osteoarthritis of right hip [M16.11] Past Medical History: Diagnosis Date Chronic back pain Diabetes (HHS/HCC) (CMS/HCC) Hypertension Hypothyroidism, unspecified Mixed hyperlipidemia Past Surgical History: Procedure Laterality Date BACK SURGERY x3 FOOT SURGERY Left 07/27/2022 FOOT SURGERY Right 2001 KNEE ARTHROPLASTY Right 04/01/2014 PUMP INFILTRATION Left pain pump Subjective: Orientation: x 4 Pain: 01/23 Pain Location: Low back and R hip/LE Patient reports she is in a lot of pain already, with a mix of her low back and R hip. She relays that she has had 3 previous serious back surgeries and is managed by pain management in [place]. She has an internal pain pump which she is able to use as she needs. She is reluctant to sit on EOB,but obliges with PT encouragement. She reports she will be doing OP PT in [place]. Home Environment: House Entrance: Ramp with Bilateral handrail. Living arrangements - The patient lives alone, but son will be staying with her for the next 3 weeks as she recovers and driving her to therapy. Patient has been ambulatory with single point cane Objective: Patient was in bed upon pt arrival. Observation: Pt in mild distress and winces and has guarded body language throughout sessions. She is bale to follow commands, but asks for help often without trying things out for herself first. Precautions/Restrictions: WBAT of RLE IV Johnson Catheter Total Hip Precautions - R hip Transfers: Bed mobility/rolling: Min A Supine to sit: Min A Sit to stand: Not Performed this Date Pivot: Not Performed this Date Ambulation: NT Activity performed this session: Evaluation only this date. 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 Patient is demonstrating deficits in Strength, ROM, Posture, Balance, Endurance, Mobility, and Transfers leading to decreased safety, increased fall risk, inability to perform home mobility, and decreased independence. Skilled therapy is appropriate at this time to address these impairments and to move the patient towards their goal of safe return to home environment with assistance as needed. Recommended Interventions: Therapeutic Activity, Therapeutic Exercise, and Gait Training Rehab Potential: Fair Personal Factors/Co-Morbidities Affecting Care: 3-4+ Examination of Body Systems: Low (1-2) Clinical Presentation of Patient: Stable Uncomplicated Eval Complexity: Low PT Plan: Frequency: BID and Once on Sunday Duration: 1 week Anticipated Discharge at this time: Home or Home with Assist Plan for next session:Gait training; transfer training out of bed; Safety at conclusion of Treatment: Patient in Bed, Call Light in Reach, Bed Alarm Activated, and all needs met per pt report. UNICATIONS DEPARTMENT HEAD * Liliana Scott RN - 02/26/2023 3:55 PM CSTSummary: FINAL d/c note CM informed that Donna is to be discharging tomorrow (02/27/23). Final D/C Plan Destination: Home Transportation: private vehicle DME: n/a Donna is planning to start out patient therapy. She states she already has a walker for home use.No CM needs. UNICATIONS DEPARTMENT HEAD * Liliana Scott RN - 02/26/2023 3:55 PM CSTSummary: FINAL d/c plan 02/26/23 1554 Discharge Planning Support Systems Children Type of Residence Private residence Assistance Needed No Patient expects to be discharged to: Home or Self care no new needs IV Infusion at discharge No DME Needed at Discharge No Donna is planning to return home at discharge via private vehicle and start out patient therapy. She states she already has a walker for home use. No CM needs. UNICATIONS DEPARTMENT HEAD * Liliana Scott RN - 02/26/2023 3:53 PM CSTSummary: Initial d/c plan 02/26/231552 Discharge Plan Discharge Plan Discharge to Home Donna is planning to return home at discharge via private vehicle and start out patient therapy. She states she already has a walker for home use. No CM needs. UNICATIONS DEPARTMENT HEAD * Casie Mcduffie RN - 02/26/2023 3:33 PM CST Problem: Pain control/comfort Goal: Promote pain control/comfort Outcome: Progressing Note: Pharmacological/ non pharmacological interventions discussed. 0/10 pain scale. Problem: Skin integrity, Impaired-wound Goal: Absence of new skin breakdown Outcome: Progressing Note: Assess for skin break down each shift and as needed. Keep skin clean and dry. Goal: Evidence of wound healing Outcome: Progressing Note: Assess for s/sx of wound healing. Problem: Reduced risk for falls/injury Goal: Reduced Risk for Falls/Injury Outcome: Progressing Note: Fall precautions implemented. Goal: Reduced Risk of Polypharmacy Outcome: Progressing Note: Medication review conducted. UNICATIONS DEPARTMENT HEAD documented in this encounter H&P Notes * Roldan Olvera MD - 02/26/2023 9:42 AM CST HISTORY AND PHYSICAL INTERVAL NOTE: I have reviewed Donna Saunders History & Physical which was performed within the past 30 days. After examining Donna Saunders, no change has occurred in the patient's condition since the H&P was completed. Informed Consent Discussion: Potential benefits, risks, and side effects of the patient's procedure/surgery; the likelihood of the patient achieving his or her goals; and any potential problems that might occur during recuperation were discussed with the patient/family/personal marketing representative. Reasonable alternatives to the patient's proposed procedure/surgery including benefits, risks, and side effects related to the alternatives and the risks related to not receiving the proposed care were also discussed with the patient/family/personal marketing representative. Questions were answered and the patient /family/personal marketing representative verbalized understanding and desires to proceed. UNICATIONS DEPARTMENT HEAD Source Note - Roldan Olvera MD - 01/30/2023 10:30 AM CDT Chief Complaint: Hip Pain (LEFT) and Knee Pain (RIGHT) History of Present Illness: Donna Saunders is a 67-year-old female who presents to the office for Hip Pain (LEFT) and Knee Pain (RIGHT) Patient reports to clinic today for LEFT hip pain. Patient denies pain. Denies numbness, tingling, bruising and swelling. Patient denies night pain. Patient reports she is not taking any pain medication. Patient does not use ice or heat on LEFT hip. Patient walks with a cane. Patient had injection to LEFT hip 01/16/23. Patient reports pain to RIGHT knee. Patient describes pain to her kneecap. She denies numbness, tingling, bruising and swelling. Patient reports pain worsens when applying pressure. Patient reports night pain. Patient does not take any pain medication. Patient does not use ice or heat. Patient usescane to walk. Patient is retired. Patient reports RIGHT hip pain. She denies numbness, tingling, swelling and bruising. Patient reports night pain that interrupts her sleep. Patient reports pain worsens with applied pressure. Patientuses heat occasionally with some relief. Patient last had RIGHT hip injection 11/14/2022 ROS: See HPI for pertinent positives Problem List: Patient Active Problem List Diagnosis 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 History: Past Medical History: Diagnosis Date Chronic back pain Hypertension Hypothyroidism, unspecified Mixed hyperlipidemia Past Surgical History: Procedure Laterality Date BACK SURGERY x3 FOOT SURGERY Left 07/27/2022 FOOT SURGERY Right 2002 KNEE ARTHROPLASTY Right 04/01/2014 PUMP INFILTRATION Left pain pump Family History Problem Relation Name Age of Onset Other (heart problems) Mother Cancer Father Thyroid Disease Other Family Status Relation Name Status Mother Father Other (Not Specified) Social History Socioeconomic History Marital status: Tobacco Use Smoking status: Never Smokeless tobacco: Never Vaping Use Vaping Use: Never used Substance and Sexual Activity Alcohol use: Not Currently Drug use: Never Sexual activity: Not Currently Medications: Current Outpatient Medications: amLODIPine 10 MG tablet, , Disp: , Rfl: atorvastatin 40 MG tablet, , Disp: , Rfl: Blood Glucose Monitoring Suppl (TRUE METRIX METER) w/Device Kit, , Disp: , Rfl: clobetasol (TEMOVATE) 0.05 % cream, Apply topically 2 (two) times daily., Disp: , Rfl: Coconut Oil 1000 MG Cap, Take 3,000 mg by mouth 2 (two) times a day., Disp: , Rfl: cyanocobalamin (B-12) 1000 MCG/ML injection, Inject 4 mLs (4,000 mcg total) into the muscle once a week., Disp: , Rfl: cyclobenzaprine (FLEXERIL) 5 MG tablet, Take 1 tablet (5 mg total) by mouth 2 (two) times daily as needed., Disp: , Rfl: HYDROMORPHONE HCL IJ, Via internal pump, Disp: , Rfl: levothyroxine (SYNTHROID) 75 MCG tablet, Take 1 tablet (75 mcg total) by mouth every morning., Disp: , Rfl: lisinopril 20 MG tablet, 5 mg., Disp: , Rfl: losartan (COZAAR) 50 MG tablet, , Disp: , Rfl: meloxicam (MOBIC) 15 MG tablet, Take 0.5 tablets (7.5 mg total) by mouth daily., Disp: 30 tablet, Rfl: 2 meloxicam (MOBIC) 7.5 MG tablet, Take 1 tablet (7.5 mg total) by mouth daily., Disp: 30 tablet, Rfl: 2 metFORMIN ER 500 MG 24 hr tablet, , Disp: , Rfl: Misc Natural Products (OSTEO BI-FLEX ADV TRIPLE ST) Tab, Take 1 tablet by mouth 2 (two) times a day., Disp: , Rfl: [place]-3 Fatty Acids (FISH OIL) 500 MG capsule, Take 1,000 mg by mouth daily., Disp: , Rfl: traZODone 50 MG tablet, , Disp: , Rfl: TRUE METRIX BLOOD GLUCOSE TEST test strip, , Disp: , Rfl: TRUEplus Lancets 33G [facility] [place], , Disp: , Rfl: vitamin D3 (CHOLECALCIFEROL) 25 mcg tablet, Take 1 tablet (25 mcg total) by mouth daily., Disp: , Rfl: Review of patient's allergies indicates: No Known Allergies Objective: Body mass index is 28.29 kg/m??. Last Recorded Weight 01/30/23 1036 Weight: 77.1 kg (170 lb) Physical exam: Constitutional: Alert and in no acute distress. Neurological: The patient was oriented to person, place, and time. Eyes: The sclera and conjunctiva were normal ENT: Hearing was normal. Neck: The appearance of the neck was normal. Cardiovascular: Normal pulses. Pulmonary: No respiratory distress. Skin: No injuries or skin lesion. Musculoskeletal: Right hip demonstrates restricted range of motion and groin pain is produced with internal rotation. She is neurovascularly intact. Antalgic gait is noted. She also has tenderness inthe lateral aspect of her right knee at the patellofemoral articulation. Her right knee range of motion is 0 to 115 degrees. No effusion is noted. Patient is noted to have movement disorder above thewaist Results: Right hip x-ray demonstrates severe degenerative changes with loss of joint space and large osteophytes Assessment: Encounter Diagnose(s) ICD-10-CM SNOMED CT(R) 1. 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 OSTEOARTHRITIS OF RIGHT HIP JOINT DUE TO DYSPLASIA meloxicam (MOBIC) 7.5 MG tablet 2. Right knee pain, unspecified chronicity M25.561 PAIN OF RIGHT KNEE REGION XR KNEE STAND AP JENNIE ONLY XR KNEE RT 2V 3. Primary osteoarthritis of left hip M16.12 OSTEOARTHRITIS OF LEFT HIP JOINT meloxicam (MOBIC) 7.5MG tablet Plan: Patient only had short-term relief with right hip injection and is struggling with pain at night aswell as functional issues. Her left hip is also very arthritic and she has had a recent intra-articular injection which has been helpful in the past. Her right knee pain may also be caused by referred pain from the hip. I recommended proceeding with right hip replacement and have reviewed risks andbenefits with the patient who elects to proceed Patient Education: The planned procedure/s, the expected benefits,the associated risks, possible complications, and alternatives to the procedure/s have been discussed in detail with the patient or family. They state that they understand, have no further questions and agree to proceed with the procedure/s as outlined. Procedure/Surgery: RIGHT total hip arthroplasty on 02/26/2023. Follow up: Return for Post-Op. ROLDAN OLVERA MD documented in this encounter Nursing Notes * Casie Mcduffie RN - 02/27/2023 8:51 AM CST Patient questioning taking her BP meds this morning. BP was 113/52 with a pulse of 76 which she says is low for her. She is on lisinopril 5mg daily, amlodipine 10mg daily and losartan 50mg daily. Nita Solis NP consulted and stated to hold amlodipine and lisinopril for now. Losartan ok to administer. Will continue to follow up. UNICATIONS DEPARTMENT HEAD * Casie Mcduffie RN - 02/26/2023 5:[address] Olvera/Sujatha Solis CASE MONITOR, okay to change norco to percocet due to increased pain tolerance. Dr. Olvera and Sujatha also aware of patient's internal dilaudid pain pump. Patient is able to administer an extra dose of dilaudid controlled electronically via her phone every 6 hours as needed. Merissa ent c/o 01/23 back pain. Educated patient to make nurse aware when electronically dosing her internal pain pump. emergency crew supervisor Chante Castellanos also aware. Will continue to follow up. UNICATIONS DEPARTMENT HEAD * Lyric Murphy RN - 02/26/2023 10:42 AM CST Son given update UNICATIONS DEPARTMENT HEAD documented in this encounter OR Notes * Op Note - Roldan Olvera MD - 02/26/2023 12:08 PM CST Donna Saunders 1955 [id number] 02/26/2023 Preoperative Diagnosis: End-stage right hip osteoarthritis Postoperative Diagnosis: same Procedure: right total hip arthroplasty using a Depuy size 7 standard offset stem with a 54 mm [place] shell using a dual mobility liner and a 28 x +1.5 mm metal head Surgeon: ROLDAN OLVERA MD Anesthesia: Spinal with IV sedation Indication: Donna Saunders is a 67-year-old female with a history of functional disability because of hip pain. The patient has evidence of end-stage osteoarthritis and has failed to see sustained relief with conservative measures. The patient presents for the above procedure after reviewing risks and benefits. Procedure:After spinal anesthesia was administered the patient was positioned in a lateral decubitus position on the operating room table and IV sedation provided. Antibiotics and tranexamic acid were given intravenously and the hip prepped and draped in the usual sterile fashion. A posterior lateral approach was used for exposure and the gluteal fascia split in line with its fibers exposing the short external rotators. The piriformis was released and tagged. The capsule was open using a T capsulotomy and the hip dislocated. The template for neck resection was position and the neck marked. Anoscillating saw was used to resect the femoral head and this was removed from the field. We then inserted acetabular retractors and a curette was used to debride the soft tissues from the acetabulum.A deep knife was used to resect the labrum and we began reaming with a 47 mm reamer and stopped reaming at 53 mm. Good subchondral bone bleeding was appreciated circumferentially. We then impacted the appropriate size cup obtaining excellent purchase. A screw was inserted to reinforce stability. A t rial neutral liner was inserted and we turned our attention to the proximal femur. The box osteotome was used to lateralize access to the canal and the Charnley awl was used to localize the canal. Wethen reamed up to the appropriate size to enable fill of the canal and then broached appropriately obtaining excellent purchase in the canal. The calcar reamer was used to even out the calcar and we trialed the neck lengths with offset options considered. Intraoperative x-rays were obtained demonstrating satisfactory fill of the canal but the cup was a bit anteverted. Leg lengths appeared okay. Martín went back and changes of version a little bit of the cup and then impacted the metal liner forthe dual mobility implant. The stem was then impacted and the dual mobility liner and head were pressed together. The implant was then impacted onto the stem and the hip reduced demonstrating satisfactory stability and leg length symmetry. The wound was copiously irrigated and the capsule approximated using #1 Vicryl. The piriformis was reattached to the posterior aspect of the greater trochanter. We then poured Betadine wound irrigant into the wound to reduce the likelihood of infection. The gluteal fascia was then approximated using #1 Vicryl which was also used to close space. Anotherround of Betadine solution was then poured into the wound. 2 oh strata fix followed by 4 oh strata fix was used to complete skin closure using a running subcuticular stitch which was then reinforced with benzoin and Steri-Strips. An Aquacel dressing was then applied and the drapes withdrawn. Sedation was discontinued the patient was transferred to the hospital bed then to the PACU in good condition. Estimated blood loss was 300 cc and sponge and needle counts were correct x2 following the procedure UNICATIONS DEPARTMENT HEAD * Brief Op Note - Roldan Olvera MD - 02/26/2023 12:07 PM CST [facility] Brief Op [facility] TOTAL HIP ARTHROPLASTY Procedure Note Donnasa Fina Saunders 02/26/2023 1004 Procedure(s) (LRB): RIGHT TOTAL HIP ARTHROPLASTY (Right) Surgeon(s): Roldan Olvera MD Pan Dumper: Dock Associate: Jasmin Dodge RN Anesthesia: Spinal Pre-Op Diagnosis: M16.31 Post-Op Diagnosis: Same Findings: Estimated Blood Loss: 300 mL Specimens: None ROLDAN OLVERA MD Date: 02/26/2023 Time: 12:07 PM UNICATIONS DEPARTMENT HEAD documented in this encounter Plan of Treatment Upcoming Encounters Date Type Department Care Team (Late st Contact Info) Description 04/29/2024 1:45 PM COMMUNICATIONS DEPARTMENT HEAD Office Visit [address] [address] Sujatha Solis, [facility]- [address] [place] [address] documented as of this encounter Procedures Procedure Name Priority Date/Time Associated Diagnosis Comments HEMOGLOBIN AND HEMATOCRIT Routine 02/27/2023 4:27 AM COMMUNICATIONS DEPARTMENT HEAD XR PELVIS 1 OR 2 VIEWS Today 02/26/2023 11:17 AM COMMUNICATIONS DEPARTMENT HEAD ARTHROPLASTY HIP TOTAL 02/26/2023 9:42 AM COMMUNICATIONS DEPARTMENT HEAD 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 POCT GLUCOSE - GERONIMO DOCKED DEVICE Routine 02/26/2023 8:43 AM COMMUNICATIONS DEPARTMENT HEAD documented in this encounter Results * (ABNORMAL) HEMOGLOBIN AND HEMATOCRIT (02/27/2023 4:27 AM COMMUNICATIONS DEPARTMENT HEAD) HGB 11.9(L) 12.0 - 16.0 G/DL 02/27/2023 6:26 AM COMMUNICATIONS DEPARTMENT HEAD [facility] HCT 36.2 36.0 - 47.0 % 02/27/2023 6:26 AM COMMUNICATIONS DEPARTMENT HEAD [facility] 02/27/2023 4:27 AM COMMUNICATIONS DEPARTMENT HEAD us Roldan Olvera MD LABORATORY Final Result [facility] [address] [place] [address], * XR PELVIS 1 OR 2 VIEWS (02/26/2023 11:17 AM COMMUNICATIONS DEPARTMENT HEAD) Anatomical Region Laterality Modality Pelvis Radiographic Chanel ging 02/27/2023 8:59 AM COMMUNICATIONS DEPARTMENT HEAD Impressions 02/27/2023 9:00 AM COMMUNICATIONS DEPARTMENT HEAD IMPRESSION: Right hip arthroplasty. Correlation with the intraprocedural findings required. Ordered By: ROLDAN OLVERA Interpreted By: Abimael Shannon MD, 02/27/2023 8:59 AM Narrative 02/27/2023 9:00 AM COMMUNICATIONS DEPARTMENT HEAD Examination: Portable pelvis. Exam time: 1046 hours. Clinical history: Arthritis. Pain. Surgical monitoring. Comparison: 09/22/2022. Technique: AP left lateral decubitus view. Findings: Acetabular and trial femoral components of right hip arthroplasty are now in place. No fracture, dislocation or other acute bony abnormality is identified. Left hip arthritis is again evident. Correlation with the intraprocedural findings is required. Procedure Note Abimael Shannon MD - 02/27/2023 Examination: Portable pelvis. Exam time: 1046 hours. Clinical history: Arthritis. Pain. Surgical monitoring. Comparison: 09/22/2022. Technique: AP left lateral decubitus view. Findings: Acetabular and trial femoral components of right hiparthroplasty are now in place. No fracture, dislocation or other acutebony abnormality is identified. Left hip arthritis is again evident.Correlation with the intraprocedural findings is required. IMPRESSION: Right hip arthroplasty. Correlation with the intraprocedural findingsrequired. Ordered By: ROLDAN OLVERA Interpreted By: Abimael Shannon MD, 02/27/2023 8:59 AM Roldan Olvera MD GENERAL IMAGING Final Result * POCT glucose (02/26/2023 8:43 AM COMMUNICATIONS DEPARTMENT HEAD) GLUCOSE POC 85 70 - 99 MG/DL 02/26/2023 8:47 AM COMMUNICATIONS DEPARTMENT HEAD [facility] 02/26/2023 8:43 AM COMMUNICATIONS DEPARTMENT HEAD us Roldan Olvera MD POCT ORDERABLES - DEVICE Final Result [facility] [address] [place] [address], documented in this encounter Visit Diagnoses Diagnosis 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 Secondary localized osteoarthrosis, pelvic region and thigh Status post total replacement of right hip 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 Secondary localized osteoarthrosis, pelvic region and thigh Osteoarthritis of right hip Osteoarthrosis, unspecified whether generalized or localized, pelvic region and thigh Status post total replacement of right hip documented in this encounter Admitting Diagnoses Diagnosis 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 Secondary localized osteoarthrosis, pelvic region and thigh Osteoarthritis of right hip Osteoarthrosis, unspecified whether generalized or localized, pelvic region and thigh documented in this encounter Administered Medications Inactive Administered Medications - up to 3 most recent administrations Medication Order MAR Action Action Date Dose Rate Site aspirin EC (ECOTRIN) tablet 81 mg 81 mg, Oral, 2 times daily with meals, First dose on Sun02/27/23 at 0800, Until Discontinued, Start the morning after surgery Do not break, chew, or crush., Post-Op Given 02/27/2023 8:30 AM COMMUNICATIONS DEPARTMENT HEAD 81 mg atorvastatin (LIPITOR) tablet 40 mg 40 mg, Oral, Nightly at bedtime, First dose on Sun02/26/23 at 2100, Until Discontinued Given 02/26/2023 8:07 PM COMMUNICATIONS DEPARTMENT HEAD 40 mg baclofen (LIORESAL) tablet 10 mg 10 mg, Oral, 2 times daily, First dose on Sun02/26/23 at 1330, Until Discontinued Given 02/27/2023 8:30 AM COMMUNICATIONS DEPARTMENT HEAD 10 mg Given 02/26/2023 8:07 PM COMMUNICATIONS DEPARTMENT HEAD 10 mg Given 02/26/2023 2:59 PM COMMUNICATIONS DEPARTMENT HEAD 10 mg ceFAZolin (ANCEF) 2 g in sodium chloride 0.9 % 50 mL IVPB 2 g, Intravenous, at 100 mL/hr, Every 8 hours, 2 doses, First dose on Sun02/26/23 at 1800, Last dose on Sun02/27/23 at 0200, Give 2 gram dose for patients less than 120 kg. PHARMACY TO ADJUST administration times based on pre-op/intra-op dose. Do NOT continue greater than 24 hours after anesthesia end time., Post-Op New Bag 02/27/2023 1:16 AM COMMUNICATIONS DEPARTMENT HEAD 2 g 100 mL/hr New Bag 02/26/2023 5:23 PM COMMUNICATIONS DEPARTMENT HEAD 2 g 100 mL/hr chlorhexidine (PERIDEX) 0.12 % solution 15 mL 15 mL, Mouth/Throat, PRN, Prior to surgery, 1 dose, Starting on Sun02/26/23 at 0804, Until Sun02/26/23 at 0813, Patient to perform oral care first. Swish/Gargle in mouth for 30 seconds, and then discard, prior to going to surgery/ If ventilated use saturated swab to clean oral cavity., Pre-Op Given 02/26/2023 8:13 AM COMMUNICATIONS DEPARTMENT HEAD 15 mLs docusate sodium (COLACE) capsule 100 mg 100 mg, Oral, 2 times daily, First dose on Sun02/26/23 at 1330, Until Discontinued, Post-Op Given 02/27/2023 8:30 AM COMMUNICATIONS DEPARTMENT HEAD 100 mg Given 02/26/2023 8:07 PM COMMUNICATIONS DEPARTMENT HEAD 100 mg Given 02/26/2023 2:59 PM COMMUNICATIONS DEPARTMENT HEAD 100 mg famotidine (PEPCID) 20 MG tablet 1 dose, Starting on Sun02/26/23 at 0806, Until Sun02/26/23 at 0813, Created by cabinet override famotidine (PEPCID) tablet 20 mg 20 mg, Oral, Once, 1 dose, On Sun02/26/23 at 0830, On admission, Pre-Op Given 02/26/2023 8:13 AM COMMUNICATIONS DEPARTMENT HEAD 20 mg famotidine (PEPCID) tablet 20 mg 20 mg, Oral, Every 12 hours scheduled (2 times per day), First dose on Sun02/26/23 at 2100, Until Discontinued, Post-Op Given 02/27/2023 8:30 AM COMMUNICATIONS DEPARTMENT HEAD 20 mg Given 02/26/2023 8:07 PM COMMUNICATIONS DEPARTMENT HEAD 20 mg famotidine (PF) (PEPCID) injection 20 mg 20 mg, Intravenous, Every 12 hours scheduled (2 times per day), First dose on Sun02/26/23 at 2100, Until Discontinued, Give if unable to take PO. IV Push over 2 minutes, Post-Op fish oil (OMEGA-3 FATTY ACID) 1000 MG capsule 1,000 mg 1,000 mg, Oral, Daily, First dose on Sun02/26/23 at 1330, Until Discontinued Given 02/27/2023 8:30 AM [facility] 1,000 m g Given 02/26/2023 2:59 PM [facility] HEAD 1,000 mg HYDROcodone-acetaminophen (NORCO) 10-325 MG tablet 1 tablet 1 tablet, Oral, Every 4 hours PRN, Severe pain (Scale 8 - 10), Starting on Sun02/26/23 at 1308, Until Sun02/26/23 at 1745, Maximum dose of acetaminophen is 4000 mg from all sources in 24 hours., Post-Op Given 02/26/2023 2:59 PM COMM[facility]ICATIONS DEPARTMENT HEAD 1 tablet lactated ringers infusion at 10 mL/hr, Intravenous, Continuous, Starting on Sun02/26/23 at 0830, Until Sun02/27/23 at 0752, Infuse at TKO rate, Pre-Op New Bag 02/26/2023 11:12 AM [facility] HEAD Restarted 02/26/2023 10:28 AM [facility] HEAD Continued by Anesthesia 02/26/2023 9:47 AM COMM[facility]ICATIONS DEPARTMENT HEAD 10 mL/hr lactated ringers infusion at 75 mL/hr, Intravenous, Continuous, Starting on Sun02/26/23 at 1330, Until Sun02/27/23 at 0528, May discontinue IV Fluid when adequate oral intake, Post-Op New Bag 02/26/2023 3:01 PM COMMUNICATIONS DEPARTMENT HEAD 7 5 mL/hr levothyroxine (SYNTHROID) tablet 75 mcg 75 mcg, Oral, Every morning, First dose (after last modification) on Sun02/27/23 at 0700, Until Discontinued, Avoid iron, calcium, and antacids within 4 hours of administration. Given 02/27/2023 6:21 AM [facility]S [facility]PARTMENT HEAD 75 mcg lisinopril (PRINIVIL) tablet 5 mg 5 mg, Oral, Daily, First dose on Sun02/26/23 at 1330, Until Discontinued Given 02/26/2023 2:59 PM COMM[facility]ICATIONS DEPARTMENT HEAD 5 mg losartan (COZAAR) tablet 50 mg 50 mg, Oral, Daily, First dose on Sun02/26/23 at 1330, Until Discontinued Given 02/27/2023 8:48 AM [facility]ICATIONS DEPART[facility] HEAD 50 mg Given 02/26/2023 2:59 PM COMM[facility]ICATIONS DEPART[facility] HEAD 50 mg meloxicam (MOBIC) tablet 7.5 mg 7.5 mg, Oral, Daily, First dose on Sun02/26/23 at 1330, Until Discontinued Given 02/27/2023 8:48 AM [facility]S [facility]PART[facility] HEAD 7.5 mg Given 02/26/2023 2:59 PM COMMUNICATIONS DEPARTMENT HEAD 7.5 mg metFORMIN ER (GLUCOPHAGE-XR) 24 hr tablet 500 mg 500 mg, Oral, Nightly, First dose (after last modification) on Sun02/26/23 at 2100, Until Discontinued, Do not break, chew, or crush. Given 02/26/2023 8:07 PM COMM[facility]ICATIONS DEPARTMENT HEAD 500 mg metoclopramide (REGLAN) 10 MG tablet 1 dose, Starting on Sun02/26/23 at 0806, Until Sun02/26/23 at 0812, Created by yves clement metoclopramide (REGLAN) tablet 10 mg 10 mg, Oral, Once, 1 dose, On Sun02/26/23 at 0830, On admission, Pre-Op Given 02/26/2023 8:12 AM [facility]ICATIONS DEPARTMENT HEAD 10 mg oxyCODONE-acetaminophen (PERCOCET) 10-325 MG tablet 1 tablet 1 tablet, Oral, Every 4 hours PRN, Severe pain (Scale 8 - 10), Starting on Sun02/26/23 at 1744, Until Sun02/27/23 at 1644, Maximum dose of acetaminophen is 4000 mg from all sources in 24 hours. Given 02/27/2023 12:31 PM COMM[facility]ICATIONS DEPARTMENT HEAD 1 tab let Given 02/27/2023 8:48 AM COMMUNICATIONS DEPARTMENT HEAD 1 tablet Given 02/27/2023 4:41 AM COMMUNICATIONS DEPARTMENT HEAD 1 tablet oxyCODONE-acetaminophen (PERCOCET) 5-325 MG tablet 1 tablet 1 tablet, Oral, Every 4 hours PRN, Moderate pain (Scale 4 - 7), Starting on Sun02/26/23 at 1744, Until Sun02/27/23 at 1644, Maximum dose of acetaminophen is 4000 mg from all sources in 24 hours. traZODone (DESYREL) tablet 50 mg 50 mg, Oral, Nightly at bedtime, First dose on Sun02/26/23 at 2100, Until Discontinued Given 02/26/2023 8:07 PM [facility] DEPART[facility] HEAD 50 mg vitamin D3 (cholecalciferol) tablet 25 mcg 25 mcg, Oral, Daily, First dose on Sun02/26/23 at 1330, Until Discontinued Given 02/27/2023 8:30 AM COMM[facility]ICATIONS DEPARTMENT HEAD 25 mcg Given 02/26/2023 2:59 PM COMMUNICATIONS DEPARTMENT HEAD 25 mcg zolpidem (AMBIEN) tablet 5 mg 5 mg, Oral, Nightly at bedtime, First dose on Sun02/26/23 at 2100, Until Discontinued, May repeat x1 if necessary Given 02/26/2023 8:07 PM COMM[facility]ICATIONS DEPARTMENT HEAD 5 mg documented in this encounter Active and Recently Administered Medications Times are shown in COMM[facility]ICATIONS DEPARTMENT HEAD. Scheduled Medication Order 02/25/2023 02/26/2023 02/27/2023 amLODIPine (NORVASC) tablet 10 mg 10 mg, Oral, Daily, First dose on Sun02/26/23 at 1330, Until Discontinued 1501 (Not Given - Provider: Casie Mcduffie RN - Reason: Patient already took) 08 (Not Given - Provider: Casie Mcduffie RN - Reason: Order parameters not met - Comment: per Sujatha Solis CASE MONITOR) aspirin EC (ECOTRIN) tablet 81 mg 81 mg, Oral, 2 times daily with meals, First dose on Sun02/27/23 at 0800, Until Discontinued, Start the morning after surgery Do not break, chew, or crush., Post-Op 0830 (Given - Provid er: Casie Mcduffie RN) atorvastatin (LIPITOR) tablet 40 mg 40 mg, Oral, Nightly at bedtime, First dose on Sun02/26/23 at 2100, Until Discontinued 2006 (Given - Provider: Elena Guadalupe, UNA) baclofen (LIORESAL) tablet 10 mg 10 mg, Oral, 2 times daily, First dose on Sun02/26/23 at 1330, Until Discontinued 1459 (Given - Provider: Casie Mcduffie RN)2006 (Given - Provider: Elena Guadalupe RN) 829 (Given - Provider: Casie Mcduffie RN) ceFAZolin (ANCEF) 2 g in sodium chloride 0.9 % 50 mL IVPB (COMPLETED) 2 g, Intravenous, at 100 mL/hr, call or contact centre team leader, 1 dose, On Sun02/26/23 at 0830, Give 2 gram dose for patients less than 120 kg. Give within 60 minutes of surgical incision., Pre-Op 0947 (New Bag - Provider: Madeline Long CRNA)1002 (Infusion Stop Time - Provider: Madeline Long CRNA) ceFAZolin (ANCEF) 2 g in sodium chloride 0.9 % 50 mL IVPB (COMPLETED) 2 g, Intravenous, at 100 mL/hr, Every 8 hours, 2 doses, First dose on Sun02/26/23 at 1800, Last dose on Sun02/27/23 at 0200, Give 2 gram dose for patients less than 120 kg. PHARMACY TO ADJUST administration times based on pre-op/intra-op dose. Do NOT continue greater than 24 hours after anesthesia end time., Post-Op 1723 (New Bag - Provider: Casie Mcduffie RN)1753 (Infusion Stop Time - Provider: Casie Mcduffie RN) 0116 (New Bag - Provider: Elena Guadalupe RN)0145 (Infusion Stop Time - Provider: Elena Guadalupe RN) cyanocobalamin (B-12) injection 4,000 mcg 4,000 mcg, Intramuscular, Weekly, First dose on Sun02/26/23 at 1330, Until Discontinued 1501 (Not Given - Provider: Casie Mcduffie RN - Reason: Medication not available) docusate sodium (COLACE) capsule 100 mg 100 mg, Oral, 2 times daily, First dose on Sun02/26/23 at 1330, Until Discontinued, Post-Op 1459 (Given - Provider: Casie Mcduffie RN)2006 (Given - Provider: Elena Guadalupe RN) 0830 (Given - Provider: Casie Mcduffie RN) famotidine (PEPCID) tablet 20 mg (COMPLETED) 20 mg, Oral, Once, 1 dose, On Sun02/26/23 at 0830, On admission, Pre-Op 0813 (Given - Provider: Marsha Aleaxnder RN) famotidine (PEPCID) tablet 20 mg(Linked Group 1) 20 mg, Oral, Every 12 hours scheduled (2 times per day), First dose on Sun02/26/23 at 2100, Until Discontinued, Post-Op 2006 (Given - Provider: Elena Guadalupe RN) 0830 (Given - Provider: Casie Mcduffie RN) famotidine (PF) (PEPCID) injection 20 mg(Linked Group 1) 20 mg, Intravenous, Every 12 hours scheduled (2 times per day), First dose on Sun02/26/23 at 2100, Until Discontinued, Give if unable to take PO. IV Push over 2 minutes, Post-Op 2006 (See Alternative - Provider: Elena Guadalupe RN) 0830 (See Alternative - Provider: Casie Mcduffie RN) fish oil (OMEGA-3 FATTY ACID) 1000 MG capsule 1,000 mg 1,000 mg, Oral, Daily, First dose on Sun02/26/23 at 1330, Until Discontinued 1459 (Given - Provider: Casie Mcduffie RN) 0830 (Given - Provider: Casie Mcduffie RN) levothyroxine (SYNTHROID) tablet 75 mcg 75 mcg, Oral, Every morning, First dose (after last modification) on Sun02/27/23 at 0700, Until Discontinued, Avoid iron, calcium, and antacids within 4 hours of administration. 0621 (Given - Provid er: Elena Guadalupe RN) lisinopril (PRINIVIL) tablet 5 mg 5 mg, Oral, Daily, First dose on Sun02/26/23 at 1330, Until Discontinued 1459 (Given - Provider: Casie Mcduffie RN) 0830 (Not Given - Provider: Casie Mcduffie RN - Reason: Order parameters not met - Comment: chacha Solis NP) losartan (COZAAR) tablet 50 mg 50 mg, Oral, Daily, First dose on Sun02/26/23 at 1330, Until Discontinued 1459 (Given - Provider: Casie Mcduffie RN) 0848 (Given - Provider: Casie Mcduffie RN) meloxicam (MOBIC) tablet 7.5 mg 7.5 mg, Oral, Daily, First dose on Sun02/26/23 at 1330, Until Discontinued 1459 (Given - Provider: Casie Mcduffie RN) 0848 (Given - Provider: Casie Mcduffie RN) metFORMIN ER (GLUCOPHAGE-XR) 24 hr tablet 500 mg 500 mg, Oral, Nightly, First dose (after last modification) on Sun02/26/23 at 2100, Until Discontinued, Do not break, chew, or crush. 2006 (Given - Provider: Elena Guadalupe, UNA) metoclopramide (REGLAN) tablet 10 mg (COMPLETED) 10 mg, Oral, Once, 1 dose, On Sun02/26/23 at 0830, On admission, Pre-Op 0812 (Given - Provider: Marsha Alexander, RN) tranexamic acid (CYKLOKAPRON) injection 1,000 mg (COMPLETED) 1,000 mg, Intravenous, Once, 1 dose, On Sun02/26/23 at 0830, PHARMACIST TO ADJUST dose based on SCr (SCr less than 1.6 = 1,000 mg; SCr 1.6-3.3 = 750 mg; SCr 3.4-6.6 = 500 mg; SCr greater than 6.6 = 250 mg). Administer dose over 15 minutes prior to incision., Pre-Op 1007 (Given - Provider: Madeline Long CRNA)1017 (Infusion Stop Time - Provider: Madeline Long CRNA) traZODone (DESYREL) tablet 50 mg 50 mg, Oral, Nightly at bedtime, First dose on Sun02/26/23 at 2100, Until Discontinued 2006 (Given - Provider: Elena Guadalupe, UNA) vitamin D3 (cholecalciferol) tablet 25 mcg 25 mcg, Oral, Daily, First dose on Sun02/26/23 at 1330, Until Discontinued 1459 (Given - Provider: Casie Mcduffie, UNA) 0830 (Given - Provider: Casie Mcduffie, UNA) zolpidem (AMBIEN) tablet 5 mg 5 mg, Oral, Nightly at bedtime, First dose on Sun02/26/23 at 2100, Until Discontinued, May repeat x1 if necessary 2006 (Given - Provider: Elena Guadalupe, UNA) Continuous Medication Order 02/25/2023 02/26/2023 02/27/2023 lactated ringers infusion (CANCELED) at 10 mL/hr, Intravenous, Continuous, Starting on Sun02/26/23 at 0830, Until Sun02/27/23 at 0752, Infuse at TKO rate, Pre-Op 0845 (New Bag - Provider: Marsha Alexander, RN)0947 (Continued by Anesthesia - Provider: Madeline Long CRNA)1027 (Paused - Provider: Madeline Long CRNA - Comment: Switch to gravity)1028 (Restarted - Provider: Madeline Long CRNA)1112 (New Bag - Provider: Madeline Long CRNA)1132 (Anesthesia Volume Adjustment - Provider: Madeline Long CRNA)1156 (Anesthesia Volume Adjustment - Provider: Madeline Long CRNA) lactated ringers infusion (CANCELED) at 75 mL/hr, Intravenous, Continuous, Starting on Sun02/26/23 at 1330, Until Sun02/27/23 at 0528, May discontinue IV Fluid when adequate oral intake, Post-Op 1501 (New Bag - Provider: Casie Mcduffie RN) 0527 (Infusion Stop Time - Provider: Elena Guadalupe RN) PRN Medication Order 02/25/2023 02/26/2023 02/27/2023 acetaminophen (TYLENOL) tablet 650 mg 650 mg, Oral, Every 4 hours PRN, Mild pain (Scale 1 - 3), Fever, Starting on Sun02/26/23 at 1308, Until Sun02/27/23 at 1644, Maximum dose of acetaminophen is 4000 mg from all sources in 24 hours., Post-Op bisacodyl (DULCOLAX) suppository 10 mg 10 mg, Rectal, Daily as needed, Constipation, Starting on Sun02/26/23 at 1308, Until Sun02/27/23 at 1644, If more than one PRN medication for constipation is ordered, use in this order: polyethylene glycol (MIRALAX), senna, bisacodyl (DULCOLAX) EC tablet PO, bisacodyl (DULCOLAX) suppository. If no results by next dosing interval, move to next option, Post-Op bisacodyl EC (DULCOLAX) tablet 5 mg 5 mg, Oral, Daily as needed, Constipation, Starting on Sun02/26/23 at 1308, Until Sun02/27/23 at 1644, If more than one PRN medication for constipation is ordered, use in this order: polyethylene glycol (MIRALAX), senna, bisacodyl (DULCOLAX) EC tablet PO, bisacodyl (DULCOLAX) suppository. If no results by next dosing interval, move to next option Do not break, chew, or crush., Post-Op chlorhexidine (PERIDEX) 0.12 % solution 15 mL (COMPLETED) 15 mL, Mouth/Throat, PRN, Prior to surgery, 1 dose, Starting on Sun02/26/23 at 0804, Until Sun02/26/23 at 0813, Patient to perform oral care first. Swish/Gargle in mouth for 30 seconds, and then discard, prior to going to surgery/ If ventilated use saturated swab to clean oral cavity., Pre-Op 08 (Given - Provider: Marsha Alexander, RN) cyclobenzaprine (FLEXERIL) tablet 5 mg 5 mg, Oral, 2 times daily PRN, Muscle Spasms, Starting on Sun02/26/23 at 1308, Until Sun02/27/23 at 1644 diphenhydrAMINE (BENADRYL) injection 12.5 mg 12.5 mg, Intravenous, Every 4 hours PRN, Itching, Starting on Sun02/26/23 at 1308, Until Sun02/27/23 at 0900, For IV administration, give no faster than 25 mg/min., Post-Op HYDROcodone-acetaminophen (NORCO) 10-325 MG tablet 1 tablet (CANCELED) 1 tablet, Oral, Every 4 hours PRN, Severe pain (Scale 8 - 10), Starting on Sun02/26/23 at 1308, Until Sun02/26/23 at 1745, Maximum dose of acetaminophen is 4000 mg from all sources in 24 hours., Post-Op 1459 (Given - Provider: Casie Mcduffie RN) morphine injection 4 mg 4 mg, Intravenous, Every 2 hours PRN, Other, Breakthrough Pain, Starting on Sun02/26/23 at 1308, Until Sun02/27/23 at 1307, Post-Op naLOXone (NARCAN) 0.04 mg in sodium chloride (PF) 0.9 % IV syringe 0.04 mg, Intravenous, Every 5 min PRN, Other, for itching if?diphenhydramine is not effective, 4 doses, Starting on Sun02/26/23 at 1308, Until Sun02/27/23 at 0900, NALOXONE DOSE/DILUTION Dilute naloxone 0.4 mg (1 mL) with 9 mL NS to achieve concentration of 0.04 mg/mL. Admin/calculated amount is based on a concentration of 0.04 mg/mL. Administer each dose over 5-8 seconds. , Post-Op naLOXone (NARCAN) injection 0.4 mg 0.4 mg, Intravenous, As needed, Opioid reversal, POSS of 4, if patient exhibits somnolence, excessive sedation, or respiratory rate is less than 8 breaths per minute., 2 doses, Starting on Sun02/26/23 at 1308, Until Sun02/27/23 at 0900, Administer every 2 minutes as needed for 2 doses., Post-Op ondansetron (ZOFRAN) injection 4 mg 4 mg, Intravenous, Every 8 hours PRN, Nausea, Vomiting, Starting on Sun02/26/23 at 1308, Until Sun02/27/23 at 1644, If more than one antiemetic is ordered use in this order: ondansetron then metoclopramide. If nausea / vomiting still not controlled move to next ordered medication., Post-Op oxyCODONE-acetaminophen (PERCOCET) 10-325 MG tablet 1 tablet 1 tablet, Oral, Every 4 hours PRN, Severe pain (Scale 8 - 10), Starting on Sun02/26/23 at 1744, Until Sun02/27/23 at 1644, Maximum dose of acetaminophen is 4000 mg from all sources in 24 hours. 1824 (Given - Provider: Casie Mcduffie RN) 0441 (Given - Provider: Elena Guadalupe RN)0848 (Given - Provider: Casie Mcduffie RN)1231 (Given - Provider: Casie Mcduffie RN) oxyCODONE-acetaminophen (PERCOCET) 5-325 MG tablet 1 tablet 1 tablet, Oral, Every 4 hours PRN, Moderate pain (Scale 4 - 7), Starting on Sun02/26/23 at 1744, Until Sun02/27/23 at 1644, Maximum dose of acetaminophen is 4000 mg from all sources in 24 hours. polyethylene glycol (GLYCOLAX) packet 17 g 17 g, Oral, Daily as needed, Constipation, Starting on Sun02/26/23 at 1308, Until Sun02/27/23 at 1644, If more than one PRN medication for constipation is ordered, use in this order: polyethylene glycol (MIRALAX), senna, bisacodyl (DULCOLAX) EC tablet PO, bisacodyl (DULCOLAX) suppository. If no results by next dosing interval, move to next option, Post-Op sodium chloride 0.9 % 3,000 mL with gentamicin 320 mg irrigation (CANCELED) As needed, Starting on Sun02/26/23 at 1036, Until Sun02/26/23 at 1212, Intra-Op 1036 (Given - Provider: Roldan Olvera MD) Linked Groups Order Group 1: famotidine (PF) (PEPCID) injection 20 mgJump to med 20 mg, Intravenous, Every 12 hours scheduled (2 times per day), First dose on Sun02/26/23 at 2100, Until Discontinued, Give if unable to take PO. IV Push over 2 minutes, Post-Op Or famotidine (PEPCID) tablet 20 mgJump to med 20 mg, Oral, Every 12 hours scheduled (2 times per day), First dose on Sun02/26/23 at 2100, Until Discontinued, Post-Op documented in this encounter Care Teams Draw Hand Relationship Specialty Start Date End Date Asif Hood DO [address] [place] [address] PCP - General FAMILY PRACTICE 09/29/21 documented as of this encounter
--- OUTSIDE RECORDS SUMMARY | 2024-04-23 21:37 | XMS_ITS | Encounter Summary ---
Author Organization [facility] Address [address] [place] [address]. [place] [address] [place] [address] Care Team Providers Care Mason Foreman/Superintendant Name Role Phone NnamdiVivivarsha GANDARA Primary Care Provider [phone] Encounter Details Date Type Department Care Team (Late st Contact Info) Description 03/16/2023 Orders Only [facility] [address] [place] [address], [facility] [address] [place] [address] Roldan Rader MD [address] [place] [address] Social History Tobacco Use Types Packs/Day Years Used Date Smoking Tobacco: Former Cigarettes Smokeless Tobacco: Never Alcohol Use Standard Drinks/Week Comments Not Currently 0 (1 standard drink = 0.6 oz pur e alcohol) [facility] Utilities Answer Date Recorded In the past 12 months has [facility] [employer], gas, oil, or water [employer] threatened to shut off services in your [...] declined 02/26/2023 How often do you attend faith or religion serv ices? Patient declined 02/26/2023 Do you belong to any clubs o r organizations such as faith groups, unions, fraternal or athletic groups, or [...] Recorded Patient Health Questionnaire-2 Score 0 02/26/2023 [facility] - [...] Orientation Straight 02/26/2023 1: 40 PM [facility] documented as of this encounter Functional Status * Are you deaf or do you have serious difficulty hearing Answer Date of Assessment Author Status No 02/26/2023 1:46 PM [facility] Casie Mcduffie RN Active * Are you blind or do you have serious difficulty seeing, even when wearing glasses? Answer Date of Assessment Author Status No 02/26/2023 1:46 PM [facility] Casie Mcduffie RN Active * Do you have serious difficulty walking or climbing stairs? Answer Date of Assessment Author Status No 02/26/2023 1:46 PM [facility] [employer] Casie Mcduffie RN Active * Do you have difficulty dressing or bathing? Answer Date of Assessment Author Status No 02/26/2023 1:46 PM [facility] Casie Mcduffie RN Active * Because of a physical, mental, or emotional condition, do you have difficulty doing errands alone such as visiting a doctor's office or shopping? Answer Date of Assessment Author Status No 02/26/2023 1:46 PM [facility] [employer] Casie Mcduffie RN Active documented as of this encounter Mental Status * Because of a physical, mental, or emotional condition, do you have serious difficulty concentrating, remembering, or making decisions? Answer Entry Date Author Status No 02/26/2023 1:46 PM [facility] Casie Mcduffie RN Active documented in this encounter Plan of Treatment Upcoming Encounters Date Type Department Care Team (Late st Contact Info) Description 04/29/2024 1:45 PM [facility] Office Visit [facility] [address] [facility] [address] [place] [address] Sujatha Solis, DE [facility]- [address] [facility] [place] [address] documented as of this encounter Results * XR PELVIS AP+RT HIP 1V (04/17/2023 10:14 AM [facility]) Anatomical Region Laterality Modality Pelvis, Hip Radiographic Chanel ging 04/17/2023 11:3 0 AM [facility] Impressions 04/17/2023 11:30 AM [facility] IMPRESSION: 1. ?? Status post right total hip arthroplasty, no evidence of complication. Ordered By: ROLDAN RADER Interpreted By: Jomar Graf, 04/17/2023 11:30 AM Narrative 04/17/2023 11:30 AM [facility] EXAMINATION: Pelvis and right hip EXAM DATE: 04/17/2023 10:12 AM REASON FOR EXAM: ??Right hip pain ? Status post right total hip arthroplasty. COMPARISON: 11/14/2022, 09/22/2022 TECHNIQUE: Single view pelvis, 2 views right hip FINDINGS: Pelvis: Severe osteoarthritis of the partially imaged left hip. Right hip: Status post total hip arthroplasty. No evidence of complication. Procedure Note Jomar Graf MD - 04/17/2023 EXAMINATION: Pelvis and right hip EXAM DATE: 04/17/2023 10:12 AM REASON FOR EXAM: Right hip pain Status post right total hip arthroplasty. COMPARISON: 11/14/2022, 09/22/2022 TECHNIQUE: Single view pelvis, 2 views right hip FINDINGS: Pelvis: Severe osteoarthritis of the partially imaged left hip. Right hip: Status post total hip arthroplasty. No evidence ofcomplication. IMPRESSION: 1. Status post right total hip arthroplasty, no evidence ofcomplication. Ordered By: ROLDAN RADER Interpreted By: Jomar Graf, 04/17/2023 11:30 AM us Roldan Rader MD GENERAL IMAGING Final Result documented in this encounter Visit Diagnoses Diagnosis Orthopedic aftercare- Primary Unspecified orthopedic aftercare Orthopedic aftercare Unspecified orthopedic aftercare documented in this encounter Care Teams Mason Foreman/Superintendant Relationship Specialty Start Date End Date Asif Coto DO [address] [place] [address] PCP - General FAMILY PRACTICE 09/29/21 documented as of this encounter
--- OUTSIDE RECORDS SUMMARY | 2024-04-23 21:37 | XMS_ITS | Encounter Summary ---
Author Organization [facility] Address [address] [place] [address]. [place] [address] [place] [address] Care Team Providers Care Software Installation Engineer Name Role Phone Nnamdi Asif GANDARA Primary Care Provider [phone] Reason for Visit * Reason Comments Postop Followup DOS 02/26/23 RIGHT t otal hip arthroplasty Encounter Details Date Type Department Care Team (Latest Contact Info) Description 03/13/2023 1:30 PM GLASS SILVERER [facility] [address], [address] [address] Roldan Rader MD [address] [place] [address] [phone] Postop Followup (DOS 02/26/23 RIGHT total hip arthroplasty) Social History Tobacco Use Types Packs/Day Years Used Date Smoking Tobacco: Former Cigarettes Smokeless Tobacco: Never Tobacco Cessation:Counseling Given: Not Answered Alcohol Use Standard Drinks/Week Comments Not Currently 0 (1 standard drink = 0.6 oz pur e alcohol) [facility] Utilities Answer Date Recorded In the past 12 months has [employer] electric, gas, oil, or water company threatened [...] declined 02/26/2023 How often do you attend taoist or mandaen serv ices? Patient declined 02/26/2023 Do you belong to any clubs o r organizations such as taoist groups, unions, fraternal or athletic groups, or [...] Recorded Patient Health Questionnaire-2 Score 0 02/26/2023 [place] [facility] [employer] - Occupational Stress [...] Sexual Orientation Straight 02/26/2023 1: 40 PM GLASS SILVERER documented as of this encounter Functional Status * Are you deaf or do you have serious difficulty hearing Answer Date of Assessment Author Status No 02/26/2023 1:46 PM GLASS SILVERER Casie Mcduffie RN Active * Are you blind or do you have serious difficulty seeing, even when wearing glasses? Answer Date of Assessment Author Status No 02/26/2023 1:46 PM GLASS SILVERER Casie Mcduffie RN Active * Do you have serious difficulty walking or climbing stairs? Answer Date of Assessment Author Status No 02/26/2023 1:46 PM GLASS SILVERER Casie Mcduffie RN Active * Do you have difficulty dressing or bathing? Answer Date of Assessment Author Status No 02/26/2023 1:46 PM GLASS SILVERER Casie Mcduffie RN Active * Because of a physical, mental, or emotional condition, do you have difficulty doing errands alone such as visiting a doctor's office or shopping? Answer Date of Assessment Author Status No 02/26/2023 1:46 PM GLASS SILVERER Casie Mcduffie RN Active documented as of this encounter Mental Status * Because of a physical, mental, or emotional condition, do you have serious difficulty concentrating, remembering, or making decisions? Answer Entry Date Author Status No 02/26/2023 1:46 PM GLASS SILVERER Casie Mcduffie RN Active documented in this encounter Progress Notes * Trinity Griffin RN - 03/13/2023 1:30 PM CST Donna is a 67-year-old female who presents for Postop Followup (DOS 02/26/23 RIGHT total hip arthroplasty) Patient here in clinic today for first post-op follow up for RIGHT RHA ambulating with a 4 wheeled walker. States she has pain to lateral aspect of RIGHT hip with radiation at times into RIGHT groin.Denies night pain. Denies numbness, tingling. States has slight swelling to area around incision site. Incision site free of redness, warmth or drainage. Denies use of ice. States she is in therapy at [facility] in [place] and she started yesterday due to the holidays. She takes Percocet's PRN with relief. She is retired. No additional nursing task documentation needed. There were no vitals filed for this visit. Current Outpatient Medications Medication Sig amLODIPine 10 MG tablet Take 1 tablet (10 mg total) by mouth daily. aspirin EC (ECOTRIN) 81 MG tablet Take 1 tablet (81 mg total) by mouth 2 (two) times daily with meals for 41 days. atorvastatin 40 MG tablet Take 1 tablet (40 mg total) by mouth daily. baclofen (LIORESAL) 5 MG tablet Take 2 tablets (10 mg total) by mouth 2 (two) times daily. Blood Glucose Monitoring Suppl (TRUE METRIX METER) w/Device Kit Coconut Oil 1000 MG Cap Take 3,000 mg by mouth 2 (two) times a day. cyanocobalamin (B-12) 1000 MCG/ML injection Inject 4 mLs (4,000 mcg total) into the muscle once a week. cyclobenzaprine (FLEXERIL) 5 MG tablet Take 1 tablet (5 mg total) by mouth 2 (two) times daily as needed. eszopiclone (LUNESTA) 1 MG tablet Take 1 tablet (1 mg total) by mouth nightly at bedtime. HYDROMORPHONE HCL IJ Via internal pump Levothyroxine Sodium 50 MCG Cap Take 75 mcg by mouth every morning. lisinopril (PRINIVIL) 5 [...] mg total) by mouth nightly at bedtime. [facility] Natural Products (OSTEO BI-FLEX ADV TRIPLE ST) Tab Take 1 tablet by mouth 2 (two) times a day. naloxone (NARCAN) 4 MG/0.1ML nasal spray 1 spray by Nasal route as needed for Opioid reversal. may repeat every 2 to 3 minutes in alternating nostrils until medical assistance becomes available [place]-3 Fatty Acids (FISH OIL) 500 MG capsule Take 1,000 mg by mouth daily. oxyCODONE-acetaminophen (PERCOCET) 5-325 MG tablet Take 1-2 tablets by mouth every 6 (six) hours asneeded for Pain. Indications: Acute Pain < 7 Day Supply OZEMPIC, 0.25 OR 0.5 MG/DOSE, 2 MG/3ML injection (PEN) Inject 0.25 mg into the skin every 7 days. Sunday traZODone 50 MG tablet Take 1 tablet (50 mg total) by mouth nightly at bedtime. TRUE METRIX BLOOD GLUCOSE TEST test strip TRUEplus Lancets 33G [facility] vitamin D3 (CHOLECALCIFEROL) 25 mcg tablet Take 1 tablet (25 mcg total) by mouth daily. Past Surgical History: Procedure Laterality Date BACK SURGERY x3 FOOT SURGERY Left 07/27/2022 FOOT SURGERY Right 2001 KNEE ARTHROPLASTY Right 04/01/2014 PUMP INFILTRATION Left pain pump Allergies Adhesive [vinyl] [x] Total [id number] Assessment Time: 0-15 minutes Additional Contributory Factors NONE S SILVERER * Roldan Rader MD - 03/13/2023 1:30 PM CST Chief Complaint: Postop Followup (DOS 02/26/23 RIGHT total hip arthroplasty) History of Present Illness: Donna Saunders is a 67-year-old female who presents to the office for Postop Followup (DOS 02/26/23 RIGHT total hip arthroplasty) Patient here in clinic today for first post-op follow up for RIGHT RHA ambulating with a 4 wheeled walker. States she has pain to lateral aspect of RIGHT hip with radiation at times into RIGHT groin.Denies night pain. Denies numbness, tingling. States has slight swelling to area around incision site. Incision site free of redness, warmth or drainage. Denies use of ice. States she is in therapy at [facility] in [place] and she started yesterday due to the holidays. She takes Percocet's PRN with relief. She is retired. 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 Osteoarthritis of right hip Status post total replacement of right hip History: Past Medical History: Diagnosis Date Chronic [...] min Stress: No Stress Concern Present (02/26/2023) [employer] [place] [employer] - Occupational Stress Questionnaire Feeling of Stress : Not at all Social Connections: Unknown (02/26/2023) Social Connection and Isolation Panel [NHANES] Frequency of Communication with Friends and Family: Patient declined Frequency of Social Gatherings with Friends and Family: Patient declined Attends Denominational Services: Patient declined Active Member of Clubs [...] times daily with meals for 41 days., Disp: 82 tablet, Rfl: 0 atorvastatin 40 MG tablet, Take 1 tablet (40 mg total) by mouth daily., Disp: , Rfl: baclofen (LIORESAL) 5 MG tablet, Take 2 tablets (10 mg total) by mouth 2 (two) times daily., Disp: , Rfl: Blood Glucose Monitoring [...] times daily as needed., Disp: , Rfl: eszopiclone (LUNESTA) 1 MG tablet, Take 1 tablet (1 mg total) by mouth nightly at bedtime., Disp: ,Rfl: HYDROMORPHONE HCL IJ, Via internal pump, Disp: , Rfl: Levothyroxine Sodium 50 MCG Cap, Take 75 mcg by mouth every morning., Disp: , Rfl: [...] becomes available, Disp: 1 each, Rfl: PRN [place]-3 Fatty Acids (FISH OIL) 500 MG capsule, Take 1,000 mg by mouth daily., Disp: , Rfl: oxyCODONE-acetaminophen (PERCOCET) 5-325 MG tablet, Take 1-2 tablets by mouth every 6 (six) hours as needed for Pain. Indications: Acute Pain < 7 Day Supply, Disp: 30 tablet, Rfl: 0 OZEMPIC, 0.25 OR 0.5 MG/DOSE, 2 MG/3ML injection (PEN), Inject 0.25 mg into the skin every 7 days. Sunday, Disp: , Rfl: traZODone 50 MG tablet, Take 1 tablet (50 mg total) by mouth nightly at bedtime., Disp: , Rfl: TRUE METRIX BLOOD GLUCOSE TEST test strip, , Disp: , Rfl: TRUEplus Lancets 33G [facility], , Disp: , Rfl: vitamin D3 (CHOLECALCIFEROL) 25 mcg tablet, Take 1 tablet (25 mcg total) by mouth daily., Disp: , Rfl: Review of patient's allergies indicates: Allergen Reactions Adhesive [Vinyl] Rash and Swelling Possibly Dermabond adhesive, used after surgery Objective: There is no height or weight on file to calculate BMI. There were no vitals filed for this visit. Physical exam: Constitutional: Alert and in no acute distress. Neurological: The patient was oriented to person, place, and time. Eyes: The sclera and conjunctiva were normal ENT: Hearing was normal. Neck: The appearance of the neck was normal. Cardiovascular: Normal pulses. Pulmonary: No respiratory distress. Skin: No injuries or skin lesion. Musculoskeletal: Right hip incision is in excellent condition. She has good range of motion of her hip but this reproduces pain. She is walking with a walker with gait disturbance. She continues to have her typical movement disorder Results: Assessment: Encounter Diagnose(s) ICD-10-CM SNOMED CT(R) 1. Status post total replacement of right hip Z96.641 HISTORY OF TOTAL HIP ARTHROPLASTY Plan: Patient doing reasonably well. She is struggling with pain relief but it is not surprising because of her history of narcotic use. I will refill her pain meds and she will continue with therapy working to transition off the walker. I will see her in a month Follow up: Return in about 4 weeks (around 04/10/2023). ROLDAN RADER MD S SILVERER documented in this encounter Plan of Treatment Upcoming Encounters Date Type Department Care Team (Late st Contact Info) Description 04/29/2024 1:45 PM GLASS SILVERER Office [facility] [address] [place] [address] Sujatha Solis, TAFFY PULLER- [address] [address] documented as of this encounter Visit Diagnoses Diagnosis Status post total replacement of right hip- Primary 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 Secondary localized osteoarthrosis, pelvic region and thigh documented in this encounter Care Teams Software Installation Engineer Relationship Specialty Start Date End Date Asif Coto DO [address] [place] [address] PCP - General FAMILY PRACTICE 09/29/21 documented as of this encounter
--- OUTSIDE RECORDS SUMMARY | 2024-04-23 21:37 | XMS_ITS | Encounter Summary ---
Author Organization [facility] Address [address] [place] [address]. [place] [address] [place] [address] Care Team Providers Care Supervisor Bakery Sanitation Name Role Phone Nnamdi Asif GANDARA Primary Care Provider [phone] Encounter Details Date Type Department Care Team (Latest Contact Info) Description 05/31/2023 Travel Social History Tobacco Use Types Packs/Day Years Used Date Smoking Tobacco: Former Cigarettes Smokeless Tobacco: Never Alcohol Use Standard Drinks/Week Comments Not Currently 0 (1 standard drink = 0.6 oz pur e alcohol) [facility] Utilities Answer Date Recorded In the past 12 months has [employer], gas, oil, or water [employer] threatened to shut off services in your [...] How often do you attend taoist or alevism serv ices? Patient declined 02/26/2023 Do you [...] Recorded Patient Health Questionnaire-2 Score 0 02/26/2023 [facility] - [...] Sexual Orientation Straight 02/26/2023 1: 40 PM COMMERCIAL REAL ESTATE BROKER documented as of this encounter Functional Status * Are you deaf or do you have serious difficulty hearing Answer Date of Assessment Author Status No 02/26/2023 1:46 PM COMMERCIAL REAL ESTATE BROKER Casie Mcduffie RN Active * Are you blind or do you have serious difficulty seeing, even when wearing glasses? Answer Date of Assessment Author Status No 02/26/2023 1:46 PM COMMERCIAL REAL ESTATE BROKER Casie Mcduffie RN Active * Do you have serious difficulty walking or climbing stairs? Answer Date of Assessment Author Status No 02/26/2023 1:46 PM COMMERCIAL REAL ESTATE BROKER Casie Mcduffie RN Active * Do you have difficulty dressing or bathing? Answer Date of Assessment Author Status No 02/26/2023 1:46 PM COMMERCIAL REAL ESTATE BROKER Casie Mcduffie RN Active * Because of a physical, mental, or emotional condition, do you have difficulty doing errands alone such as visiting a doctor's office or shopping? Answer Date of Assessment Author Status No 02/26/2023 1:46 PM COMMERCIAL REAL ESTATE BROKER Casie Mcduffie RN Active documented as of this encounter Mental Status * Because of a physical, mental, or emotional condition, do you have serious difficulty concentrating, remembering, or making decisions? Answer Entry Date Author Status No 02/26/2023 1:46 PM COMMERCIAL REAL ESTATE BROKER Casie Mcduffie RN Active documented in this encounter Plan of Treatment Upcoming Encounters Date Type Department Care Team (Late st Contact Info) Description 04/29/2024 1:45 PM COMMERCIAL REAL ESTATE BROKER Office Visit [facility] [address] [facility] [address] [place] [address] Sujatha Solis, PUNCHER AND FASTENER- [address] [place] [address] [place] [address] documented as of this encounter Visit Diagnoses Not on filedocumented in this encounter Care Teams Supervisor Bakery Sanitation Relationship Specialty Start Date End Date Asif Coto DO [address] [place] [address] PCP - General FAMILY PRACTICE 09/29/21 documented as of this encounter
--- OUTSIDE RECORDS SUMMARY | 2024-04-23 21:37 | XMS_ITS | Encounter Summary ---
Author Organization [facility] Address [address] [place] [address]. [place] [address] [place] [address] Care Team Providers Care Internet Marketing Manager Name Role Phone Nnamdi Asif GANDARA Primary Care Provider [phone] Reason for Visit * Reason Comments Wound Encounter Details Date Type Department Care Team (Late st Contact Info) Description 06/30/2023 2:27 PM CDT - 06/30/2023 6:11 PM CDT Emergency [facility] [place] [address] Rach Nieves, DO [address] [place] [id number] Wound Discharge Disposition: Home or Self Care (Routine Discharge) Social History Tobacco Use Types Packs/Day Years Used Date Smoking Tobacco: Former Cigarettes Smokeless Tobacco: Never Alcohol Use Standard Drinks/Week Comments Not Currently 0 (1 standard drink = 0.6 oz pur e alcohol) Occassionaly. [facility] Utilities Answer Date Recorded In [...] How often do you attend orthodoxy or evangelical serv ices? Patient declined 02/26/2023 Do you [...] Recorded Patient Health Questionnaire-2 Score 0 02/26/2023 [facility] [place] [facility] - Occupational Stress [...] place to sleep or slept in a alf (including now)? 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 documented as of this encounter Last Filed Vital Signs Vital Sign Reading Time Taken Comments Blood Pressure 111/56 06/30/2023 4:30 PM CDT Pulse 102 06/30/2023 2:37 PM CDT Temperature 35.8 ??C (96.4 ??F) 06/30/2023 2:37 PM CD T Respiratory Rate 21 06/30/2023 2:37 PM CDT Oxygen Saturation 93% 06/30/2023 6:00 PM CDT Inhaled Oxygen Concentration - - Weight 70.3 kg (155 lb) 06/30/2023 2:37 PM CDT Height 165.1 cm (5' 5 ) 06/30/2023 2:37 PM CDT Body Mass Index 25.79 06/30/2023 2:37 PM CDT documented in this encounter Functional [...] Michel RN Active documented in this encounter Discharge Instructions * Discharge Instructions* Rach Nieves DO - 06/30/2023 6:02 PM CDT Please refer to the attached discharge instructions regarding your diagnosis and treatment recommendations. Please take all your home medications as directed. Please follow up with Dr. Rader on Sunday Please return to the emergency department if: Fevers (greater than 100.4 F) that are not controlled with over the counter fever medications Worsening pain Inability to bend your hip or bear weight New numbness tingling or paresthesias in your leg You know yourself better than anyone. If you become concerned about your progress or believe your condition is worsening please return to the emergency department or call the nurses hotline at for further recommendations. * Attachments The following attachments cannot be sent through Care Everywhere. * Skin Rash Discharge Instructions (Indian) * Contact Dermatitis Discharge Instructions (Indian) documented in this encounter Medications at Time [...] total) by mouth nightly at bedtime. 05/13/2021 [facility] Natural Products (OSTEO BI-FLEX ADV TRIPLE ST) Tab Take 1 tablet by mouth 2 (two) times a day. [place]-3 Fatty Acids (FISH OIL) 500 MG capsule [...] 14 days. 28 tablet 06/22/2023 07/06/19 24 cyclobenzaprine (FLEXERIL) 10 MG tablet Take 1 tablet (10 mg total) by mouth 3 (three) times daily as needed for Muscle Spasms. 30 tablet 06/22/2023 07/02/19 24 hydrOXYzine (VISTARIL) 25 MG capsuleIndications: Allergic [...] 07/08/19 24 documented as of this encounter ED Notes * Cynthia Melo RN - 06/30/2023 5:10 PM CDT Pt aware that awaiting xray results. * Cynthia Melo RN - 06/30/2023 4:15 PM CDT Spo2 remains between 88-92% when awake. Pt states I think its the flexeril I am taking . Pt statesthat she has dilaudid going through her pain pump and has also taken her flexeril and percocet today. Dr. Nieves aware. Orders received. * Cynthia Melo RN - 06/30/2023 4:10 PM CDT Pt spo2 down to 85%. Pt sleeping upon entering room. When pt awoke spo2 back up to 91-92%. Pt denies any sob. * Rach Nieves DO - 06/30/2023 3:10 PM CDT Chief Complaint Chief Complaint Patient presents with Wound History of Present Illness 67-year-old female 9 days status post left total hip arthroplasty by Dr. Rader presenting with increased redness and blistering over her incision site. Was seen in the office Sunday due to the itching and redness at the incision site and had a different type of dressing placed as well as being started on hydroxyzine for the itching. Despite changing bandages continue to have spreading redness and blistering over this site. Had Bactrim called in for her yesterday which she started taking for possible associated infection. Continued to have blistering so encouraged to come to the ED for further evaluation. She denies any increased pain or difficulty ranging her hip joint. No associated fevers. Has been eating and drinking well. Denies any nausea vomiting diarrhea or other systemic complaints. Has used this type of bandage when she had her previous hip fracture without significant skin changes Medical History ALLERGIES: Review of patient's allergies indicates: Allergen Reactions 2-Octylcyanoacrylate [Cyanoacrylate] Hives, Rash and Swelling Dermabond Adhesive [Vinyl] Rash and Swelling Possibly Dermabond adhesive, used after surgery MEDICATIONS: Prior to Admission medications Medication Sig Start Date End Date Taking? Authorizing Provider amLODIPine 10 MG tablet Take 1 tablet (10 mg total) by mouth daily. 06/27/21 Yes [facility] aspirin EC (ECOTRIN) 81 MG tablet Take 1 tablet (81 mg total) by mouth 2 (two) times daily with meals for 14 days. 06/22/23 07/06/23 Yes Roldan Rader MD atorvastatin 40 MG tablet Take 1 tablet (40 mg total) by mouth daily. 06/03/21 Yes [facility] Coconut Oil 1000 MG Cap Take 3,000 mg by mouth 2 (two) times a day. Yes Default History Genericprovider cyanocobalamin (B-12) 1000 MCG/ML injection Inject 1 mL (1,000 mcg total) into the muscle once a week. 07/11/22 Yes Default History Genericprovider cyclobenzaprine (FLEXERIL) 10 MG tablet Take 1 tablet (10 mg total) by mouth 3 (three) times daily as needed for Muscle Spasms. 06/22/23 07/02/23 Yes Roldan Rader MD Eszopiclone 3 MG Tab Take 3 mg by mouth nightly at bedtime. 05/17/23 Yes Default History Genericprovider HYDROMORPHONE HCL IJ Via internal pump Yes Default History Genericprovider hydrOXYzine (VISTARIL) 25 MG capsule Take 1 capsule (25 mg total) by mouth 3 (three) times daily asneeded for Itching. 06/25/23 07/05/23 Yes DEON Desai levothyroxine (SYNTHROID) 75 MCG tablet Take 1 tablet (75 mcg total) by mouth every morning. 05/08/23 Yes Default History Genericprovider lisinopril (PRINIVIL) 5 MG tablet Take 1 tablet (5 mg total) by mouth daily. 12/29/20 Yes Doc [facility] losartan (COZAAR) 50 MG tablet Take 1 tablet (50 mg total) by mouth daily. 08/21/22 Yes Default History Genericprovider meloxicam (MOBIC) 15 MG tablet Take 0.5 tablets (7.5 mg total) by mouth daily. 05/09/23 Yes Sujatha Brody, DISPATCH ASSOCIATE-BC metFORMIN ER 500 MG 24 hr tablet Take 1 tablet (500 mg total) by mouth nightly at bedtime. 05/13/21 Yes Doc [facility] [place]-3 Fatty Acids (FISH OIL) 500 MG capsule Take 1,000 mg by mouth daily. Yes Default History Genericprovider oxyCODONE-acetaminophen (PERCOCET) 5-325 MG tablet Take 1 tablet by mouth every 6 (six) hours as needed for Pain. Indications: Chronic Pain 06/28/23 Yes Roldan Rader MD OZEMPIC 1 mg/dose injection (PEN) Inject into the skin once a week. 04/06/23 Yes Default History Genericprovider pantoprazole EC (PROTONIX) 40 MG tablet Take 1 tablet (40 mg total) by mouth daily. 05/17/23 Yes Default History Genericprovider sulfamethoxazole-trimethoprim (BACTRIM DS) 800-160 MG tablet Take 1 tablet by mouth 2 (two) times daily for 10 days. 06/28/23 07/08/23 Yes Roldan Rader MD vitamin D3 (CHOLECALCIFEROL) 25 mcg tablet Take 1 tablet (25 mcg total) by mouth daily. Yes DefaultHistory Genericprovider Blood Glucose Monitoring Suppl (TRUE METRIX METER) w/Device Kit 01/10/21 [facility] cyclobenzaprine (FLEXERIL) 5 MG tablet Take 1 tablet (5 mg total) by mouth 2 (two) times daily as needed. 07/13/22 Default History Genericprovider [facility] Natural Products (OSTEO BI-FLEX ADV TRIPLE ST) Tab Take 1 tablet by mouth 2 (two) times a day.Default History Genericprovider naloxone (NARCAN) 4 MG/0.1ML nasal spray 1 spray by Nasal route as needed for Opioid reversal. 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 01/31/2023 Added automatically from request for surgery [id number] PAST SURGICAL HISTORY: Past Surgical History: Procedure Laterality Date BACK SURGERY x3 FOOT SURGERY Left 07/27/2022 FOOT SURGERY Right 2001 HIP ARTHROPLASTY Right 02/26/2023 KNEE ARTHROPLASTY Right 04/01/2014 PUMP INFILTRATION Left pain pump TOTAL KNEE ARTHROPLASTY Left 06/21/2023 FAMILY HISTORY: Family History Problem Relation Name Age of Onset Other (heart problems) Mother Cancer Father Thyroid Disease Other SOCIAL HISTORY: Social History Tobacco Use Smoking status: Former Types: Cigarettes Smokeless tobacco: Never Vaping Use Vaping Use: Never used Substance Use Topics Alcohol use: Not Currently Comment: Occassionaly. Drug use: Never Review of Systems Review of Systems Constitutional: Negative for chills and fever. Respiratory: Negative for shortness of breath. Cardiovascular: Negative for chest pain. Gastrointestinal: Negative for nausea and vomiting. Skin: Positive for color change and wound. Physical Exam Filed Vitals: 06/30/23 1545 06/30/23 1630 06/30/23 1700 06/30/23 1715 BP: 111/56 Pulse: Resp: Temp: SpO2: 94% 92% 98% 94% Weight: Height: Physical Exam Vitals and nursing note reviewed. Constitutional: General: She is not in acute distress. Appearance: She is well-developed. HENT: Head: Normocephalic and atraumatic. Nose: Nose normal. Eyes: Conjunctiva/sclera: Conjunctivae normal. Cardiovascular: Rate and Rhythm: Normal rate and regular rhythm. Pulmonary: Effort: Pulmonary effort is normal. No respiratory distress. Breath sounds: Normal breath sounds. Chest: Chest wall: No tenderness. Abdominal: General: Bowel sounds are normal. Palpations: Abdomen is soft. Tenderness: There is no abdominal tenderness. There is no guarding or rebound. Musculoskeletal: General: Normal range of motion. Cervical back: Normal range of motion. Skin: General: Skin is warm and dry. Findings: Erythema present. Comments: Erythema and areas of desquamation surrounding her left lateral hip incision site. No significant purulent drainage. No palpable fluctuance. Otherwise well-healing incision site Neurological: Mental Status: She is alert and oriented to person, place, and time. Diagnostic Studies / Procedures ELECTROCARDIOGRAMS: No results found for this visit on 06/30/23. LABORATORY STUDIES: Results for orders placed or performed during the hospital encounter of 06/30/23 CBC W/DIFF AUTOMATED Result Value Ref Range WBC 11.43 (H) 4.00 - 10.80 x10'3/uL RBC 3.75 (L) 4.10 - 5.40 x10'6/uL HGB 10.4 (L) 12.0 - 16.0 G/DL HCT 31.9 (L) 36.0 - 47.0 % MCV 85.1 78.0 - 100.0 FL MCH 27.7 27.0 - 31.0 PG MCHC 32.6 (L) 33.0 - 36.0 G/DL RDW 13.7 11.5 - 14.5 % PLT 528 (H) 150 - 350 x10'3/uL MPV 9.0 7.4 - 10.4 FL CBC COMMENT NORMAL REFERENCE RANGE NOT ESTABLISHED FOR THE PROPORTIONAL LEUKOCYTE DIFFERENTIAL. NEUTROPHILS 71.5 % LYMPHOCYTES 15.7 % MONOCYTES 8.7 % EOSINOPHILS 2.8 % BASOPHILS 0.4 % IMMATURE GRANS 0.9 % NRBC 0.0 % ABS. NEUTROPHILS 8.16 1.60 - 8.30 x10'3/uL ABS. LYMPHOCYTES 1.80 0.80 - 4.70 x10'3/uL ABS. MONOCYTES 1.00 0.00 - 1.50 x10'3/uL ABS. EOSINOPHILS 0.32 0.00 - 0.40 x10'3/uL ABS. BASOPHILS 0.05 0.00 - 0.20 x10'3/uL ABS. IMMATURE GRANULOCYTES 0.10 (H) 0.00 - 0.03 x10'3/uL ABS. NUCLEATED RBC'S 0.00 0.00 x10'3/uL COMPREHENSIVE METABOLIC PANEL Result Value Ref Range SODIUM S/P/B 138 136 - 145 MMOL/L POTASSIUM S/P/B 4.2 3.5 - 5.1 MMOL/L CHLORIDE S/P/B 101 98 - 107 MMOL/L CO2 29.2 21.0 - 32.0 MMOL/L GLUCOSE 98 70 - 99 MG/DL BUN 19 6 - 24 MG/DL CREATININE S/P/B 1.10 (H) 0.55 - 1.02 MG/DL CALCIUM S/P/B 9.1 8.4 - 10.5 MG/DL BILIRUBIN TOTAL S/P/B 0.3 0.2 - 1.0 MG/DL ALKALINE PHOSPHATASE S/P/B 98 55 - 142 U/L AST 33 15 - 37 U/L ALT 38 14 - 59 U/L TOTAL PROTEIN S/P/B 6.0 (L) 6.4 - 8.2 G/DL ALBUMIN S/P/B 3.0 (L) 3.4 - 5.0 G/DL ANION GAP 7.8 5.0 - 15.0 MMOL/L OSMOLALITY (CALC) 288 MOSM/KG GFR ESTIMATE 55 (L) >89 ML/MIN/1.73 M2 GFR NOTES GFR REFERENCES: LACTIC ACID W REFLEX (SEPSIS) Result Value Ref Range LACTIC ACID VENOUS 1.5 0.4 - 2.0 MMOL/L IMAGING STUDIES XR HIP LT 2V Final Result by User, [id number] (06/29 3861) EXAM: XR HIP LT 2V DATE: 06/30/2023 Correlating intraoperative x-ray 06/21/2023. INDICATION: Rash at the incision site. TECHNIQUE: 2 views of the left hip. FINDINGS: Dual component hip arthroplasty. Normal alignment. No findings for fracture. Along the proximal intertrochanteric region medially, there is 3-4 mm of space between the bone and the prosthesis component. IMPRESSION: Left hip replacement. Referred By: Interpreted By: Rafa Ellsworth MD, 06/30/2023 5:47 PM XR CHEST PORTABLE Final Result by User, [id number] (06/29 1921) EXAM: XR CHEST PORTABLE DATE: 06/30/2023 Comparison 08/02/2004 INDICATION: Rash at the hip replacement incision. TECHNIQUE: One view FINDINGS: Normal heart and pulmonary vessel size. The lungs are clear. Thoracic spine stimulator lead. Moderate osteoarthritis in both shoulders. IMPRESSION: Clear lungs. Referred By: Interpreted By: Rafa Ellsworth MD, 06/30/2023 5:43 PM ED Course / Medical Decision Making Medical Decision Making 67-year-old female presenting with worsening redness surrounding her incision site from 8 days ago for a left hip replacement Heart rate 102 with a temp of 96.4 blood pressure 156/71 with otherwise unremarkable vitals. Erythema and areas of desquamation surrounding her left lateral hip incision site. No significant purulent drainage. No palpable fluctuance. Otherwise well- healing incision site with an otherwise unremarkable physical exam. Ddx including but not limited to: Cellulitis, septic joint, adhesive reaction Orders: CBC, CMP, lactic, blood cultures, hip x-ray Workup as above discussed with the patient who is agreeable with this plan. ED Course as of 06/30/231803 Sat Jun 30, 2023 1504 Refusing IV and IVF at this time. Would prefer straight stick and if requiring admission okay if we put in an IV [RT] 1555 WBC(!): 11.43 Slightly increased WBC [RT] 1556 HGB(!): 10.4 Improved from 8 days ago was 8.1 [RT] 1556 PLT(!): 528 [RT] 1617 LACTIC ACID VENOUS: 1.5 [RT] 1617 CREATININE S/P/B(!): 1.10 [RT] 1718 Labs and skin findings today discussed with Dr. Rader feels reassured that there is not a deeper space infection. May continue Bactrim and follow-up with clinic on Sunday [RT] 1749 XR CHEST PORTABLE IMPRESSION: Clear lungs. [RT] 1756 XR HIP LT 2V IMPRESSION: Left hip replacement. [RT] 1802 Labs and imaging discussed with Dr. Rader who is comfortable following up with the patient on Sunday. Lab workup imaging and conversation with Dr. Rader discussed with patient and son who are comfortable with contact dermatitis secondary to adhesive as the cause of her ongoing redness with an otherwise well-healing surgical incision. Discussed care with ABD pads and minimal tape and adhesives until follow-up with Dr. Rader's office on Sunday. May continue the Bactrim she was prescribed as a precaution. Red flag symptoms and return precautions provided. 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 Pt states is a horrible stick. * Cynthia Melo RN - 06/30/2023 3:00 PM CDT Abd pad placed over wound and secured with paper tape. * Cami Sanchez RN - 06/30/2023 2:31 PM CDT Per wc from home with c/o drainage and increase in redness to L total hip incision; surgery done bydr painter mirror on 06/21/23. Pt c/o itching to incision and seen at ortho office with rx hydroxyzine on 06/24 and seen again at ortho clinic with rx bactrim on 06/27. Pt and family states is looking worse with increase in redness and drainage. Pt rates pain to area at 5. Denies fever. 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 Visit [facility] [address] [address] Sujatha Solis, DISPATCH ASSOCIATE- [address] [place] [address] documented as of this encounter Procedures Procedure Name Priority Date/Time Associated Diagnosis Comments XR HIP LT 2V STAT 06/30/2023 4:55 PM CDT XR CHEST PORTABLE STAT 06/30/2023 4:5 5 PM CDT LACTIC ACID W REFLEX (SEPSIS) STAT 06/30/2023 3:40 PM CDT COMPREHENSIVE METABOLIC PANEL STAT 06/30/2023 3:40 PM CDT CULTURE, BACTERIA, BLOOD STAT 06/30/2023 3:40 PM CDT CBC W/DIFF AUTOMATED STAT 06/30/2023 3:40 PM CDT CULTURE, BACTERIA, BLOOD STAT 06/30/2023 3:26 PM CDT documented in this encounter Results * XR CHEST PORTABLE (06/30/2023 4:55 PM CDT) Anatomical Region Laterality Modality Chest Radiographic Chanel ging 06/30/2023 5:43 PM CDT Impressions 06/30/2023 5:46 PM CDT IMPRESSION: Clear lungs. Referred By: ?? Interpreted By: Rafa Ellsworth MD, 06/30/2023 5:43 PM Narrative 06/30/2023 5:46 PM CDT EXAM: XR CHEST PORTABLE DATE: 06/30/2023 ?? Comparison 08/02/2004 INDICATION: Rash at the hip replacement incision. TECHNIQUE: One view FINDINGS: Normal heart and pulmonary vessel size. ??The lungs are clear. ??Thoracic spine stimulator lead. ??Moderate osteoarthritis in both shoulders. Procedure Note Rafa Ellsworth MD - 06/30/2023 EXAM: XR CHEST PORTABLE DATE: 06/30/2023 Comparison 08/02/2004 INDICATION: Rash at the hip replacement incision. TECHNIQUE: One view FINDINGS: Normal heart and pulmonary vessel size. The lungs are clear.Thoracic spine stimulator lead. Moderate osteoarthritis in bothshoulders. IMPRESSION: Clear lungs. Referred By: Interpreted By: Rafa Ellsworth MD, 06/30/2023 5:43 PM us Rach Vinson Lizbeth DO GENERAL IMAGING Final Re sult * XR HIP LT 2V (06/30/2023 4:55 PM CDT) Anatomical Region Laterality Modality Hip Radiographic Chanel ging 06/30/2023 5:47 PM CDT Impressions 06/30/2023 5:49 PM CDT IMPRESSION: Left hip replacement. Referred By: ?? Interpreted By: Rafa Ellsworth MD, 06/30/2023 5:47 PM Narrative 06/30/2023 5:49 PM CDT EXAM: XR HIP LT 2V DATE: 06/30/2023 ?? Correlating intraoperative x-ray 06/21/2023. INDICATION: Rash at the incision site. TECHNIQUE: 2 views of the left hip. FINDINGS: Dual component hip arthroplasty. ??Normal alignment. ??No findings for fracture. ??Along the proximal intertrochanteric region medially, there is 3-4 mm of space between the bone and the prosthesis component. Procedure Note Rafa Ellsworth MD - 06/30/2023 EXAM: XR HIP LT 2V DATE: 06/30/2023 Correlating intraoperative x-ray 06/21/2023. INDICATION: Rash at the incision site. TECHNIQUE: 2 views of the left hip. FINDINGS: Dual component hip arthroplasty. Normal alignment. No findingsfor fracture. Along the proximal intertrochanteric region medially, thereis 3-4 mm of space between the bone and the prosthesis component. IMPRESSION: Left hip replacement. Referred By: Interpreted By: Rafa Ellsworth MD, 06/30/2023 5:47 PM us Rach Nieves DO GENERAL IMAGING Final Re sult * CULTURE, BACTERIA, BLOOD (06/30/2023 3:40 PM CDT) SPEC DESCRIPTION BLOOD 06/30/2023 3:47 PM CDT [facility] SPECIAL REQUESTS STERIPATH NOT USED 06/30/2023 3:47 PM CDT [facility] CULTURE RESULT NO GROWTH 5 DAYS 07/05/2023 11:39 AM CDT [facility] BLOOD SPECIMEN OBTAINED FOR BLOOD CULTURE / Unknown 06/30/2023 3:40 PM CDT 06/30/2023 3:47 PM CDT Rach Nieves DO MICROBIOLOGY - GENERAL O RDERABLES Final Result Performing Organization Address [facility]/ZIP Co de Phone Number [facility] [address] [place] [address], * LACTIC ACID W REFLEX (SEPSIS) (06/30/2023 3:40 PM CDT) LACTIC ACID VENOUS 1.5 0.4 - 2.0 MMOL/L 06/30/2023 4:[address] [facility] 06/30/2023 3:40 PM CDT Rach Nieves DO LABORATORY Final Re sult Performing Organization Address [facility] Co de Phone Number [facility] [address] [place] [address], [place] [phone] * (ABNORMAL) COMPREHENSIVE METABOLIC PANEL (06/30/2023 3:40 PM CDT) SODIUM S/P/B 138 136 - 145 MMOL/L 06/30/2023 4:06 PM [address] [facility] POTASSIUM S/P/B 4.2 3.5 - 5.1 MMOL/L 06/30/2023 4:06 PM CD[address] [facility] CHLORIDE S/P/B 101 98 - 107 MMOL/L 06/30/2023 4:06 PM CD[address] [facility] CO2 29.2 21.0 - 32.0 MMOL/L 06/30/2023 4:06 PM CD[address] [facility] GLUCOSE 98 70 - 99 MG/DL 06/30/2023 4:06 PM CDT [facility] Comment: FASTING GLUCOSE 100 TO 125 MG/DL IS CONSISTENT WITH IMPAIRED FASTING GLUCOSE. FASTING GLUCOSE >125 MG/DL IS CONSISTENT WITH DIABETES. RANDOM GLUCOSE >200 MG/DL WITH HYPERGLYCEMIC SYMPTOMS IS CONSISTENT WITH DIABETES. PER ADA GUIDELINES BUN 19 6 - 24 MG/DL 06/30/2023 4:06 PM [facility] CREATININE S/P/B 1.10(H) 0.55 - 1.02 MG/DL 06/30/2023 4:06 PM [facility] CALCIUM S/P/B 9.1 8.4 - 10.5 MG/DL 06/30/2023 4:06 PM [facility] BILIRUBIN TOTAL S/P/B 0.3 0.2 - 1.0 MG/DL 06/30/2023 4:06 PM [facility] Comment: THIS ASSAY IS NOT RECOMMENDED FOR PATIENTS UNDERGOING TREATMENT WITH ELTROMBOPAG DUE TO THE POTENTIAL FOR FALSELY ELEVATED RESULTS. ALKALINE PHOSPHATASE S/P/B 98 55 - 142 U/L 06/30/2023 4:06 PM [facility] AST 33 15 - 37 U/L 06/30/2023 4:06 PM [facility] ALT 38 14 - 59 U/L 06/30/2023 4:06 PM [facility] TOTAL PROTEIN S/P/B 6.0(L) 6.4 - 8.2 G/DL 06/30/2023 4:06 PM [facility] ALBUMIN S/P/B 3.0(L) 3.4 - 5.0 G/DL 06/30/2023 4:06 PM [facility] ANION GAP 7.8 5.0 - 15.0 MMOL/L 06/30/2023 4:06 PM [facility] OSMOLALITY (CALC) 288 MOSM/KG 024 4:06 PM [facility] Comment:REFERENCE RANGE NOT ESTABLISHED GFR ESTIMATE 55(L) >89 ML/MIN/1. 73 M2 06/30/2023 4:06 PM [facility] GFR NOTES GFR REFERENCE S: 06/30/2023 4:06 PM [facility] Comment: THE ESTIMATED GFR IS CALCULATED USING THE 2020 CKD-EPI EQUATION. THE FOLLOWING CATEGORIES FOR GRADING RENAL FUNCTION ARE RECOMMENDED BY THE INTERNATIONAL SOCIETY OF NEPHROLOGY (KDIGO 2012 CLINICAL PRACTICE GUIDELINE). G1,NORMAL OR HIGH: >89 ml/min/1.73 m2 G2,MILDLY DECREASED: 60-89 ml/min/1.73 m2 G3A,MILDLY TO MODERATELY DECREASED: 45-59 ml/min/1.73 m2 G3B,MODERATELY TO SEVERELY DECREASED: 30-44 ml/min/1.73 m2 G4,SEVERELY DECREASED: 15-29 ml/min/1.73 m2 G5,KIDNEY FAILURE: <15 ml/min/1.73 m2 06/30/2023 3:40 PM CDT us Rach Nieves DO LABORATORY Final Re sult [facility] [address] [place] [address], * (ABNORMAL) CBC W/DIFF AUTOMATED (06/30/2023 3:40 PM CDT) WBC 11.43(H) 4.00 - 10.80 x10'3/uL 06/30/2023 3:55 PM [address] [facility] RBC 3.75(L) 4.10 - 5.40 x10'6/uL 06/30/2023 3:55 PM CDT [facility] HGB 10.4(L) 12.0 - 16.0 G/DL 06/30/2023 3:55 PM CDT [facility] HCT 31.9(L) 36.0 - 47.0 % 06/30/2023 3:55 PM CDT [facility] MCV 85.1 78.0 - 100.0 FL 06/30/2023 3:55 PM CDT [facility] MCH 27.7 27.0 - 31.0 PG 06/30/2023 3:55 PM CDT [facility] MCHC 32.6(L) 33.0 - 36.0 G/DL 06/30/2023 3:55 PM CD[address] [facility] RDW 13.7 11.5 - 14.5 % 06/30/2023 3:55 PM CDT [facility] PLT 528(H) 150 - 350 x10'3/uL 06/30/2023 3:55 PM CDT [facility] MPV 9.0 7.4 - 10.4 FL 06/30/2023 3:55 PM CD[address] [facility] CBC COMMENT NORMAL REFERENCE RANGE NOT ESTABLISHED FOR THE PROPORTIONAL LEUKOCYTE DIFFERENTIAL. 06/30/2023 3:55 PM CD[address] [facility] NEUTROPHILS % 71.5 % 06/30/2023 3:55 PM [address] [facility] LYMPHOCYTES % 15.7 % 06/30/2023 3:55 PM CD[address] [facility] MONOCYTES % 8.7 % 06/30/2023 3:55 PM CD[address] [facility] EOSINOPHILS % 2.8 % 06/30/2023 3:55 PM CD[address] [facility] BASOPHILS % 0.4 % 06/30/2023 3:55 PM CD[address] [facility] IMMATURE GRANS % 0.9 % 06/30/19 3:55 PM [address] [facility] NRBC 0.0 % 06/30/2023 3:55 PM CD[address] [facility] ABS. NEUTROPHILS 8.16 1.60 - 8.30 x10'3/uL 06/30/2023 3:55 PM CD[address] [facility] ABS. LYMPHOCYTES 1.80 0.80 - 4.70 x10'3/uL 06/30/2023 3:55 PM CD[address] [facility] ABS. MONOCYTES 1.00 0.00 - 1.50 x10'3/uL 06/30/2023 3:55 PM CD[address] [facility] ABS. EOSINOPHILS 0.32 0.00 - 0.40 x10'3/uL 06/30/2023 3:55 PM CD[address] [facility] ABS. BASOPHILS 0.05 0.00 - 0.20 x10'3/uL 06/30/2023 3:55 PM CD[address] [facility] ABS. IMMATURE GRANULOCYTES 0.10(H) 0.00 - 0.03 x10'3/uL 06/30/2023 3:55 PM [address] [facility] ABS. NUCLEATED RBC'S 0.00 0.00 x10'3/uL 06/30/2023 3:55 PM CD[address] [facility] 06/30/2023 3:40 PM CDT us Rach Nieves DO LABORATORY Final Re sult Performing Organization Address [facility]/ZIP Co de Phone Number [id number] [place] [address], [place] [phone] * CULTURE, BACTERIA, BLOOD (06/30/2023 3:26 PM CDT) SPEC DESCRIPTION BLOOD 06/30/2023 3:[address] [facility] SPECIAL REQUESTS STERIPATH NOT USED 06/30/2023 3:47 PM CDT [facility] CULTURE RESULT NO GROWTH 5 DAYS 07/05/2023 11:39 AM CDT 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
--- OUTSIDE RECORDS SUMMARY | 2024-04-23 21:37 | XMS_ITS | Encounter Summary ---
Author Organization [facility] Address [address] [place] [address]. [place], [place] [id number] [place] [id number] Care Team Providers Care Crm Marketing Executive Name Role Phone Asif Hood DO Primary Care Provider [phone] Reason for Referral * (Routine) - New Request Specialty Diagnoses / Procedures Referred By Contac t Referred To Contact Procedures PT Eval and Roldan Virk MD [address] [place] [address] Phone: tel: fax: Referral ID Status Reason Start Date Expiration Date V isits Requested Visits Authorized [id number] New Request 06/21/2023 06/20/2024 1 1 PIN BOWLING CENTRE MANAGER * (Routine) - New Request Specialty Diagnoses / Procedures Referred By Contac t Referred To Contact Procedures OT Eval and Roldan Virk MD [address] [place] [address] Phone: tel: fax: Referral ID Status Reason Start Date Expiration Date V isits Requested Visits Authorized [id number] New Request 06/21/2023 06/20/2024 1 1 PIN BOWLING CENTRE MANAGER Reason for Visit * Auth/Cert (Routine) Specialty Diagnoses / Procedures Referred By Contac t Referred To Contact Diagnoses 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 M16.2 Procedures TOTAL HIP ARTHROPLASTY LEFT total hip arthroplasty ; ; Depuy notified, Labs to be done at [place], other side done 02/26/23 Roldan Olvera MD [address] [place] [address] Phone: tel: fax: Referral ID Status Reason Start Date Expiration Date Visits Re quested Visits Authorized [id number] 1 1 Encounter Details Date Type Department Care Team (Latest Contact Info) Description 06/21/2023 6:15 AM TEN PIN BOWLING CENTRE MANAGER - 06/22/2023 2:52 PM [facility] Hospital Encounter [place] [facility] [address] [place] [address] Roldan Olvera MD [address] [place] [address] Discharge Disposition: Home or Self Care (Routine Discharge) Social History Tobacco Use Types Packs/Day Years Used Date Smoking Tobacco: Former Cigarettes Smokeless Tobacco: Never Tobacco Cessation:Counseling Given: Not Answered Alcohol Use Standard Drinks/Week Comments Not Currently 0 (1 standard drink = 0.6 oz pur e alcohol) Occassionaly. [facility] Utilities Answer Date Recorded In the past 12 months has e [employer], gas, oil, or water [employer] threatened to shut off services in your [...] declined 02/26/2023 How often do you attend taoism or nondenominational serv ices? Patient declined 02/26/2023 Do you belong to any clubs o r organizations such as taoism groups, unions, fraternal or athletic groups, or [...] 0 02/26/2023 [facility] - Occupational Stress Questionnaire Answer Date [...] Sexual Orientation Straight 02/26/2023 1: 40 PM TEN PIN BOWLING CENTRE MANAGER documented as of this encounter Last Filed Vital Signs Vital Sign Reading Time Taken Comments Blood Pressure 102/48 06/22/2023 12:32 PM TEN PIN BOWLING CENTRE MANAGER Pulse 95 06/22/2023 8:23 AM TEN PIN BOWLING CENTRE MANAGER Temperature 36.3 ??C (97.3 ??F) 06/22/2023 12:[address] Respiratory Rate 18 06/22/2023 12:32 PM TEN PIN BOWLING CENTRE MANAGER Oxygen Saturation 97% 06/22/2023 12:32 PM TEN PIN BOWLING CENTRE MANAGER Inhaled Oxygen Concentration - - Weight 70.3 kg (155 lb) 06/21/2023 11:23 AM TEN PIN BOWLING CENTRE MANAGER Height 165.1 cm (5' 5 ) 06/21/2023 11:23 AM TEN PIN BOWLING CENTRE MANAGER Body Mass Index 25.79 06/21/2023 11:23 AM TEN PIN BOWLING CENTRE MANAGER documented in this encounter Functional Status * Question Answer Date of Assessment Author Status Do you have serious difficulty walking or climbing stairs? No 06/21/2023 11:27 AM TEN PIN BOWLING CENTRE MANAGER Yanira Castellanos RN Eddie tive * Question Answer Date of Assessment Author Status Do you have difficulty dressing or bathing? No 06/21/2023 11:27 AM TEN PIN BOWLING CENTRE MANAGER Yanira Castellanos R N Active Because of a physical, mental, or emotional condition, do you have difficulty doing errands alone such as visiting a doctor's office or shopping? No 06/21/2023 11:27 AM Yanira Michel RN Act stella * Are you deaf or do you [...] difficulty concentrating, remembering, or making decisions? No 06/21/2023 11:27 AM Yanira Michel RN Active * Because of a physical, mental, or emotional condition, do you have serious difficulty concentrating, remembering, or making decisions? Answer Entry Date Author Status No 06/21/2023 11:27 AM Yanira Michel RN Active documented in this encounter Discharge Summaries * Roldan Olvera MD - 06/22/2023 12:17 PM CST Physician Discharge Summary Patient ID: Donna Saunders [id number] 67-year-old 1955 Primary Care Physician: ASIF HOOD DO Admit date: 06/21/2023 Expected Discharge Date: 06/22/2023 Admitting Physician: Roldan Olvera MD Discharge Physician: Admission Diagnoses: 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 [M16.2] Discharge Diagnoses: Same Admission Condition: good Discharged Condition: good Indication for Admission: Left total hip arthroplasty Hospital Course: Patient is a 67-year-old female who underwent elective left hip replacement. She was admitted with routine infection and DVT prophylaxis and mobilize with therapy. She struggled a bit with pain control but demonstrated good function with therapy and was discharged home on oral painmedication. She also has a pain pump so she definitely has some narcotic tolerance. She has a Prineo wound dressing and she will leave that alone until she comes back to the office. I have provided aprescription for Percocet for pain and she will take an aspirin twice a day for DVT prophylaxis. She has therapy arranged as an outpatient and has follow-up instructions from my office. Consults: none Code Status: Full Code Procedures: Procedures (From admission, onward) HEMOGLOBIN AND HEMATOCRIT Routine XR PELVIS 1 OR 2 VIEWS Today Referrals: No orders of the defined types were placed in this encounter. Significant Diagnostic Studies: Treatments: surgery: Left total hip arthroplasty Discharge Exam: Incision is in excellent condition without erythema or drainage. Mild fullness is noted at the hip.Neurovascularly intact Disposition: Home or Self Care (Routine Discharge) Patient Instructions: Current Discharge Medication List START taking these medications Details aspirin EC (ECOTRIN) 81 MG tablet Take 1 tablet (81 mg total) by mouth 2 (two) times daily with meals for 14 days. Qty: 28 tablet, Refills: 0 Associated Diagnoses: Status post total replacement of left hip; Osteoarthritis resulting from lefthip dysplasia !! cyclobenzaprine (FLEXERIL) 10 MG tablet Take 1 tablet (10 mg total) by mouth 3 (three) times daily as needed for Muscle Spasms. Qty: 30 tablet, Refills: 0 oxyCODONE-acetaminophen (PERCOCET) 5-325 MG tablet Take 1-2 tablets by mouth every 6 (six) hours asneeded for Pain. Indications: Acute Pain < 7 Day Supply Qty: 30 tablet, Refills: 0 Associated Diagnoses: Status post total replacement of left hip; Osteoarthritis resulting from lefthip dysplasia !! - Potential duplicate medications found. Please discuss with provider. CONTINUE these medications which have NOT CHANGED [...] total) into the muscle once a week. !! cyclobenzaprine (FLEXERIL) 5 MG tablet Take 1 tablet (5 mg total) by mouth 2 (two) times daily as needed. HYDROMORPHONE HCL IJ Via internal pump levothyroxine (SYNTHROID) 75 MCG tablet Take 1 tablet (75 mcg total) by mouth every morning. lisinopril (PRINIVIL) 5 MG tablet Take 1 tablet (5 mg total) by mouth daily. losartan (COZAAR) 50 MG tablet Take 1 tablet (50 mg total) by mouth daily. meloxicam (MOBIC) 15 MG tablet Take 0.5 tablets (7.5 mg total) by mouth daily. Qty: 30 tablet, Refills: 2 Associated Diagnoses: Status post total replacement of right hip; Primary osteoarthritis of left knee; Primary osteoarthritis of left hip metFORMIN ER 500 MG 24 hr tablet Take 1 tablet (500 mg total) by mouth nightly at bedtime. [facility] Products (OSTEO BI-FLEX ADV TRIPLE ST) Tab Take 1 tablet by mouth 2 (two) times a day. [place]-3 Fatty Acids (FISH OIL) 500 MG capsule Take 1,000 mg by mouth daily. OZEMPIC 1 mg/dose injection (PEN) Inject into the skin once a week. pantoprazole EC (PROTONIX) 40 MG tablet Take 1 tablet (40 mg total) by mouth daily. TRUE METRIX BLOOD GLUCOSE TEST test strip TRUEplus Lancets 33G [facility] vitamin D3 (CHOLECALCIFEROL) 25 mcg tablet Take 1 tablet (25 mcg total) by mouth daily. Eszopiclone 3 MG Tab Take 3 mg by mouth nightly at bedtime. naloxone (NARCAN) 4 MG/0.1ML nasal spray 1 spray by Nasal route as needed for Opioid reversal. may repeat every 2 to 3 minutes in alternating nostrils until medical assistance becomes available Qty: 1 each, Refills: PRN !! - Potential duplicate medications found. Please discuss with provider. Activity: activity as tolerated Diet: regular diet Wound Care: as directed Follow-up with Dr. Olvera in 10-14 days. Signed: ROLDAN OLVERA MD 06/22/2023 12:17 PM PIN BOWLING CENTRE MANAGER documented in this encounter Discharge Instructions * Attachments The following attachments cannot be sent through Care Everywhere. * Total Hip Replacement Discharge Instructions (Pakistani) documented in this encounter Medications at Time [...] by mouth 2 (two) times a day. [place]-3 Fatty Acids (FISH OIL) 500 MG capsule [...] Muscle Spasms. 30 tablet 06/22/2023 07/02/19 24 meloxicam (MOBIC) 15 MG tabletIndications:S tatus [...] Pain < 7 Day Supply 30 tablet 06/22/2023 06/28/19 24 documented as of this encounter Progress Notes * Shira Greco PTA - 06/22/2023 1:46 PM CST Pt is adequate for discharge and will be attending outpatient therapy. PIN BOWLING CENTRE MANAGER * Shira Greco PTA - 06/22/2023 1:44 PM CST 06/22/23 1311 Therapy Visit Ordering Provider Dr. Olvera Subjective Pt supine in bed this afternoon since the chair was uncomfortable. Pt rates her pain a 5, but it was worse about an hour ago. Pt is ready to go home. Reason for admission s/p L HITESH Verified Two Patient Identifiers Yes Patient consents to therapy Yes Acute Inpatient PT Time Calculation PT Start Time 1311 PT Stop Time 1334 PT Time Calculation (min) 23 min Precautions Total Hip Replacement ADduction;Internal rotation;Flexion Weight Bearing Status LLE;As tolerated Pain Pain Yes Pain Score 5 Location L Hip Activity Tolerance Endurance Tolerates 20 - 30 min activity with rests Endurance Quality Fair Limiting Factors to Endurance Pain;Weakness;Fatigue Bed Mobility Supine to Sit SBA/supervision Sit to Supine Modified independence TRANSFERS Sit to Stand Modified independence Bed to Chair Modified independence Gait Gait Assistance SBA/supervision;Modified independence Assistive Device 2 Wheeled walker Distance Ambulated (ft) 145 ft Pattern L Decreased stance time Balance Sitting - Static Independent Sitting - Dynamic Independent Standing - Static SBA;Support of both upper extremities Standing - Dynamic SBA;Support of both upper extremities Exercises Ankle Pumps B x20 Quad Sets B x20 Short Arc Quad L x20 Heelslides L x10 Straight Leg Raise L x10 assisted Glut Sets x15 Hip Abduction L x10 assisted Sitting LE Exercise L LAQ x15 PT Assessment PT Assessment Pt able to increase ambulation with FWW and SBA to modified independent without L knee buckling, but continues to have decrease stance on L LE. Pt reviewed and completed her HEP and instructed to complete them twice a day until beginning outpatient therapy. Pt able to use restroom with independent pericare. Pt positioned herself back into bed with call light within reach. Nursing aware that patient is adequate for discharge. PT is discharging patient at this time. Discharge Recommendation PT Recommendation Home with assistance;Outpatient PT PT Equipment Recommended 2 Wheeled walker Plan Progress Discontinue PT End of Session End of Session Safety Call light within reach PIN BOWLING CENTRE MANAGER * Reshma Cardozo RN - 06/22/2023 10:58 AM CST Problem: Infection - Risk of, Surgical Site Infection Goal: Absence of infection signs and symptoms Outcome: Progressing Note: No signs or symptoms. Problem: Mobility - Impaired Goal: Able to use ambulatory assistive device appropriately Outcome: Progressing Note: Therapy working with patient Goal: Knowledge of need for increased mobility Outcome: Progressing Note: Therapy working with patient Problem: Pain - Acute Goal: Control of acute pain Outcome: Progressing Note: Patient has PRN pain medications ordered. PIN BOWLING CENTRE MANAGER * Shira Fina Greco, LOSS PREVENTION LEADER - 06/22/2023 10:52 AM CST 06/22/23920 Therapy Visit Ordering Provider Dr. Olvera Subjective Pt supine in bed and agrees to therapy. Pt states that her hip is sore and rates her pain a 5 in left hip pre treatment. Reason for admission s/p L HITESH Verified Two Patient Identifiers Yes Patient consents to therapy Yes Acute Inpatient PT Time Calculation PT Start Time 920 PT Stop Time 938 PT Time Calculation (min) 18 min Precautions Total Hip Replacement ADduction;Internal rotation;Flexion Weight Bearing Status LLE;As tolerated Pain Pain Yes Pain Score 5 Location L hip Activity Tolerance Endurance Tolerates 10 - 20 min activity with rests Endurance Quality Fair Limiting Factors to Endurance Pain;Weakness;Fatigue Bed Mobility Supine to Sit SBA/supervision TRANSFERS Sit to Stand Contact guard assist Bed to Chair Contact guard assist Gait Gait Assistance Contact guard assist Assistive Device 2 Wheeled walker Distance Ambulated (ft) 96 ft Pattern L Decreased stance time Balance Sitting - Static Independent Sitting - Dynamic Modified independence;Support of one upper extremity Standing - Static CGA;Support of both upper extremities Standing - Dynamic CGA;Support of both upper extremities PT Assessment PT Assessment Pt able to increase ambulation distance this morning with FWW and CGA with constant cueing to tighten left quad to prevent her leg from buckling. Pt has a difficult time at first, but then able to complete. Pt demonstrated no LOB during all seated and standing balancing activities while donning clean clothes. Pt positioned in chair with legs elevated and call light within reach. Iceto left hip. AUTO SERVICE WRITER notified to ambulate patient again in about an hour, so patient isn't sitting all morning. Pt will be seen again this afternoon and then will be ready for discharged and will begin outpatient therapy in [place]. Discharge Recommendation PT Recommendation Home with assistance;Outpatient PT PT Equipment Recommended 2 Wheeled walker Plan PT Treatments/Interventions Gait Training;Therapeutic Exercises;Therapeutic Activities Progress Improving as expected PT Frequency BID PT plan for next session Review and complete HEP End of Session End of Session Safety Call light within reach PIN BOWLING CENTRE MANAGER * Kiera Kaycee Mcmanus, OT - 06/22/2023 9:37 AM CST OT Treatment Discharge Recommendation: home with assistance DME equipment recommendation: 2 wheeled walker Activity Recommendation for press supervisor: UP with 1 2ww, posterior hip precautions 06/22/23 0922 Therapy Visit OT Received On 06/21/23 Reason for admission Pt is a 67 yo female who presents with L HITESH 06/20 WBAT posterior hip precautions......PMH: back pain, DM, HTN, hyperthyroidism, back surgery, knee surgery.....Eval and tx, up wtihassistance, up in chair Ordering Provider Dr. Olvera Verified Two Patient Identifiers Yes Patient consents to therapy Yes Acute Inpatient OT Time Calculation OT Start Time 920 OT Stop Time 936 OT Time Calculation (min) 16 min Precautions Total Hip Replacement ADduction;Internal rotation;Flexion Weight Bearing Status LLE;As tolerated Instructed on Precautions Yes;Verbalizes understanding Subjective Subjective Pt supine in bed and agrees to therapy. Pt states that her hip is sore and rates her pain a 5 in left hip pre treatment. Home Living Home Living Comments Pt lives in a 1 SH with ramp to enter and HR. Pt lives alone. 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 Pt has a 2ww and AD for LBD from prior hip srugery. Pain Pain Yes Pain Score 5 Location L hip Interventions Re-positioning;Relaxation;Re-direction Activity Tolerance Limiting Factors to Endurance Pain;Weakness;Fatigue Vision - Basic Assessment Current Vision Wears [...] problem solve independently Comments Pt educated on hip precautions, pain and edema mgmt Motor Planning Appears intact Perseveration Not present Initiation Appears intact Overall Extremity Assessment Upper Extremity BUE WFL AROM and strength Hand Function Hand Dominance Right Gross Grasp Right;Left;Functional Coordination Functional Sensation Light Touch No apparent deficits ADL Additional Comments Pt requires max A to don underwear, and pants with education on use of AD to adheren to posterior hip precautions. pt reports she uses sock aid and cross tie turner at home since prior hipsurgery. Pt setup assistance to don bra and t shirt EOB. Bed Mobility Supine to Sit SBA/supervision Other (Comment) SBA increased time HOB elevated supine to EOB with min cues for technqiue and breahting Functional Transfers Sit to Stand SBA/supervision;Contact guard assist Other (Comment) Pt SBA-CGA all ADL related transfers and functional mobiltiy with use of 2ww in room and hallway mocking short household distances with min cues for use of 2ww and proper body mechanigcs. Balance Sitting - Static Independent Sitting - Dynamic Modified independence;Support of one upper extremity Standing - Static Support of both upper extremities;SBA Standing - Dynamic CGA;Support of both upper extremities Other (Comment) no LOB with 2ww Assessment Occupational Profile and History Complexity Moderate (Expanded) Performance Skills Deficits Bathing/showering;Dressing;Functional mobility;Personal hygiene and grooming;Toileting Performance Deficit Level Moderate (3-5 deficits) Clinical Decision Making Moderate (min/mod modifications) Complexity Level of Evaluation Moderate Prognosis Fair Discharge Recommendation OT Recommendation Home with assistance;No skilled OT Plan Progress Discontinue OT OT - Next Appointment 06/22/23 If this is the last treatment note, it will serve as the discharge summary Yes End of Session End of Session Safety Call light within reach;Nursing aware of session;Transfer status education Pt making good progress towards POC this date with improved activity tolerance and independence with ADLs, bed mobility and transfer training. OT will sign off on Pt at this time due to Pt appearing to be at prior level of independence; Pt in agreement. Please send new orders if a change in medicalstatus occurs. Education: Primary Learners Name: Donna Saunders Primary Language of learner: Pakistani Patient educated on precautions transfers ADLs balance bed mobility equipment therapy plan gait safety. Education was completed one to one verbal hands-on this date. Preference of learning new concepts one to one verbal hands-on Barriers to education this date were Pt motivation pain. Response to education this date verbalized understanding. PIN BOWLING CENTRE MANAGER * Elena Guadalupe RN - 06/21/2023 9:50 PM CST Problem: Infection - Risk of, Surgical Site Infection Goal: Absence of infection signs and symptoms Outcome: Progressing Note: No new signs or symptoms Problem: Mobility - Impaired Goal: Able to use ambulatory assistive device appropriately Outcome: Progressing Goal: Knowledge of need for increased mobility Outcome: Progressing Note: Patient educated Problem: Pain - Acute Goal: Control of acute pain Outcome: Progressing Note: PRN pain medication given PIN BOWLING CENTRE MANAGER * Yanira Castellanos RN - 06/21/2023 5:54 PM CST Problem: Infection - Risk of, Surgical Site Infection Goal: Absence of infection signs and symptoms Outcome: Progressing Note: No S&S of infection at this time. Problem: Mobility - Impaired Goal: Able to use ambulatory assistive device appropriately Outcome: Progressing Note: Pt understanding of importance of using a walker to improve mobility. Goal: Knowledge of need for increased mobility Outcome: Progressing Note: Pt understanding of importance of working with therapy to improve mobility. Problem: Pain - Acute Goal: Control of acute pain Outcome: Progressing Note: PRN pain medication given as indicated, upon pt request. PIN BOWLING CENTRE MANAGER * Liliana Scott RN - 06/21/2023 2:35 PM CSTSummary: FINAL d/c note Final D/C Note Destination: Home Transportation: private vehicle DME: n/a No CM needs PIN BOWLING CENTRE MANAGER * Liliana Scott RN - 06/21/2023 2:34 PM CSTSummary: FINAL d/c plan 06/21/23 1433 Discharge Planning Living Arrangements Alone Support Systems Children Type of Residence Private residence Assistance Needed No Patient expects to be discharged to: Home or Self care no new needs IV Infusion at discharge No DME Needed at Discharge No Donna is to return home via private vehicle. She states she already has a walker for home use. NoCM needs PIN BOWLING CENTRE MANAGER * Liliana Scott RN - 06/21/2023 2:30 PM CSTSummary: Initial d/c plan 06/21/23 1430 Discharge Plan Discharge Plan Discharge to Home Donna is planning to return home via private vehicle. She states she already has a walker for home use. No CM needs PIN BOWLING CENTRE MANAGER * Fiona Lanza, PT - 06/21/2023 1:31 PM CST Instructions for Nursing: Up with one, ADELE, 2WW. Posterior hip precautions Physical Therapy Inpatient Evaluation Time In: 1319 Time Out: 1329 Donna Saunders 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 [M16.2] Past Medical History: Diagnosis Date Chronic back pain Diabetes (HHS/HCC) (CMS/HCC) Hypertension Hypothyroidism, unspecified Mixed hyperlipidemia Past Surgical History: Procedure Laterality Date BACK SURGERY x3 FOOT SURGERY Left 07/27/2022 FOOT SURGERY Right 2001 HIP ARTHROPLASTY Right 02/26/2023 KNEE ARTHROPLASTY Right 04/01/2014 PUMP INFILTRATION Left pain pump TOTAL KNEE ARTHROPLASTY Left 06/21/2023 Subjective: Orientation: x 4 Pain: Pt reports she just received a pain pill not long ago but does not rate her pain. Patient reports she would like to hold evaluation until later in day for her pain medicine to kick in. With encouragement, patient agreeable to evaluation. Home Environment: House Entrance: Ramp with Bilateral handrail. Living arrangements - The patient lives alone. Patient has been ambulatory with single point cane Objective: Patient was in bed upon pt arrival. Observation:Pt in bed upon entering room. Precautions/Restrictions: WBAT of LLE IV Johnson Catheter Posterior hip precautions Transfers: Bed mobility/rolling: Min A Supine to sit: Min A Sit to stand: Not Performed this Date Pivot: Not Performed this Date Ambulation: Not performed this date. Activity performed this session: Evaluation only this date. Assessment: Donna Saunders is a 67-year-old female who presents with a primary complaint of Osteoarthritis ofboth hips resulting from hip dysplasia [M16.2]. Patient is demonstrating deficits in Strength, ROM,Posture, Balance, Endurance, Mobility, and Transfers leading to decreased safety, increased fall risk, inability to perform home mobility, inability to perform self care, and decreased independence. Skilled therapy is appropriate at this time to address these impairments and to move the patient towards their goal of returning home independently. Recommended Interventions: Therapeutic Activity, Therapeutic Exercise, Gait Training, Manual Therapy, and Self-Care Training Rehab Potential: Good Personal Factors/Co-Morbidities Affecting Care: 3-4+ Examination of Body Systems: Low (1-2) Clinical Presentation of Patient: Stable Uncomplicated Eval Complexity: Low PT Plan: Frequency: BID and Once on Sunday Duration: 1 week Anticipated Discharge at this time: Home with OP PT Plan for next session:Transfer and gait training Safety at conclusion of Treatment: Patient in Bed, Call Light in Reach, and Nursing Notified of Situation PIN BOWLING CENTRE MANAGER * Kiera Mcmanus, OT - 06/21/2023 1:27 PM CST OT Initial Evaluation Discharge Recommendation: home with assistance DME equipment recommendation: 2 wheeled walker Activity Recommendation for press supervisor: Up with 1 2ww, posterior hip precautions LLE 06/21/23 1200 Therapy Visit OT Received On 06/21/23 Reason for admission Pt is a 67 yo female who presents with L HITESH 3 WBAT posterior hip precautions......PMH: back pain, DM, HTN, hyperthyroidism, back surgery, knee surgery.....Eval and tx, up wtihassistance, up in chair Ordering Provider Roldan Olvera MD Verified Two Patient Identifiers Yes Patient consents to therapy Yes Acute Inpatient OT Time Calculation OT Start Time 1319 OT Stop Time 1327 OT Time Calculation (min) 8 min Precautions Total Hip Replacement ADduction;Internal rotation;Flexion Weight Bearing Status As tolerated Instructed on Precautions Yes;Verbalizes understanding Subjective Subjective Pt supine in bed upon arrival and agreeable to therapy eval. Home Living Home Living Comments Pt lives in a 1 SH with ramp to enter and HR. Pt lives alone. 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 Pt has a 2ww and AD for LBD from prior hip srugery. Pain Pain Yes Pain Score Did not rate Location L hip Interventions Re-positioning;Relaxation;Re-direction Activity Tolerance Activity Tolerance Comments Post op pain, low blood pressure Vision - Basic Assessment Current Vision Wears [...] problem solve independently Comments Pt educated on hip precautions, pain and edema mgmt Motor Planning Appears intact Perseveration Not present Initiation Appears intact Overall Extremity Assessment Upper Extremity BUE WFL AROM and strength Hand Function Hand Dominance Right Gross Grasp Right;Left;Functional Coordination Functional Sensation Light Touch No apparent deficits ADL Additional Comments Pt max A to don socks supine in bed. Bed Mobility Supine to Sit Min assist to left Sit to Supine Min assist to right Other (Comment) Pt min A supine to EOB, and EOB to supine this date and requires assistance with LLE in and out of bed due to pain and weakness. Pt educated on technique to adhere to posterior hip precautions. Functional Transfers Sit to Stand ERIKA Balance Sitting - Static Independent Sitting - Dynamic SBA Assessment Occupational Profile and History Complexity Moderate (Expanded) Performance Skills Deficits Bathing/showering;Dressing;Functional mobility;Personal hygiene and grooming;Toileting Performance Deficit Level Moderate (3-5 deficits) Clinical Decision Making Moderate (min/mod modifications) Complexity Level of Evaluation Moderate Prognosis Fair Discharge Recommendation OT Recommendation Home with assistance OT Equipment Recommended 2 Wheeled walker Plan Progress Slow progress, decreased activity tolerance OT Frequency (5 days a wk 1-2 sessions a day) OT - Next Appointment 06/21/23 If this is the last treatment note, it will serve as the discharge summary Yes End of Session End of Session Safety Call light within reach;Nursing aware of session;Transfer status education Pt reports independence as functional status LOSS PREVENTION LEADER. Pt presents with pain, weakness, posterior hip precautions, decreased independence with LB dressing, grooming, and functional transfers; decreased standing activity tolerance, balance, and safety for functional tasks. Pt would benefit from continuedOT at the acute care setting in order to address above stated deficits and maximize functional independence. Anticipate Pt to require use of 2ww, AD for dressing and assistance at d/c home. The below POC initiated 06/21/23 to be followed until 07/01/23 at that time POC to be re-assessed and modified if needed. Pt will complete all functional transfers in room and bathroom using 2WW with Modified Independencein order to increase independence with functional transfers. Pt will increase standing activity balance using 2WW for 3-5 minutes with Mod I in order to increase independence with ADLs, functional transfers, and leisure activities. Pt will perform all LB dressing using AE PRN including clothing retrieval with Modified [place] in order to increase independence with ADLs. Pt will brush teeth, wash face, brush hair, and wash hands standing at sink with 2WW with Modified [place] in order to increase independence with ADLs. Pt will perform all toileting tasks including clothing management using 2WW with Modified [place] in order to increase independence with functional transfers and ADLs. Pt will bathe whole body and wash hair seated on shower chair with Modified [place] in order to increase independence with ADLs. Pt will perform supine to sit and sit to supine bed mobility with [place] in order to increaseindependence with ADLs, transitional movements, and functional mobility. Pt will increase activity tolerance/endurance to 6-11 minutes of activity with 1-2 rest breaks in order to increase independence with ADLs, functional transfers, bed mobility, and leisure activities. Pt will participate in 15-30 minutes of therapuetic activities with 1-2 rest breaks in order to increase activity tolerance for increased independence with ADLs and IADLs. Pt will increase knowledge of energy conservation techniques, activity and rest routine, home safety, body mechanics and demonstrate use of techniques during functional activities with [place] in order to increase overall activity tolerance for increased independence with ADLs and IADLs. Pt will increase safety and memory recalling basic orientation and following complex verbal commands with no verbal cuing to increase safety and independence with ADLs and functional transfers. Pt will adhere to posterior hip precautions during bed mobility, ADLs, and transfers with no verbalcuing to increase safety and independence with ADLs and functional transfers. Education: Primary Learners Name: Donna Saunders Primary Language of learner: Pakistani Patient educated on transfers ADLs balance bed mobility equipment therapy plan gait safety adaptive skills edema management joint protection ROM. Education was completed one to one verbal hands-on this date. Preference of learning new concepts one to one verbal hands-on Barriers to education this date were pain fatigue. Response to education this date verbalized understanding. PIN BOWLING CENTRE MANAGER documented in this encounter H&P Notes * Roldan Olvera MD - 06/21/2023 7:17 AM CST HISTORY AND PHYSICAL INTERVAL NOTE: [...] during recuperation were discussed with the patient/family/personal sales and service representative. Reasonable alternatives to the patient's proposed procedure/surgery including benefits, risks, and side effects related to the alternatives and the risks related to not receiving the proposed care were also discussed with the patient/family/personal sales and service representative. Questions were answered and the patient /family/personal sales and service representative verbalized understanding and desires to proceed. PIN BOWLING CENTRE MANAGER Source Note - Roldan Olvera MD - 05/31/2023 4:00 PM TEN PIN BOWLING CENTRE MANAGER Chief Complaint: Hip Pain (LEFT) History of Present Illness: Donna Saunders is a 67-year-old female who presents to the office for Hip Pain (LEFT) Patient states that she is here today to discuss LEFT total hip arthroplasty. She has a R HITESH by our office on 02/26/23 with good relief. She locates her pain in her LEFT groin. She does have pain atnight and is struggling to sleep at night. She denies radiation. She ambulates with the assistance of cane. She does have a implanted pain pump and takes Mobic for pain releif. She denies any injecitons in LEFT hip. She completed therapy for RIGHT hip. ROS: See HPI for pertinent positives Problem [...] min Stress: No Stress Concern Present (02/26/2023) [employer] - Occupational Stress Questionnaire Feeling of Stress : Not at all Social Connections: Unknown (02/26/2023) Social Connection and Isolation Panel [NHANES] Frequency of Communication with Friends and Family: Patient declined Frequency of Social Gatherings with Friends and Family: Patient declined Attends Gnosticism Services: Patient declined Active Member of Clubs [...] Last Year: No Medications: Current Outpatient Medications: Eszopiclone 3 MG Tab, Take 3 mg by mouth nightly at bedtime., Disp: , Rfl: levothyroxine (SYNTHROID) 75 MCG tablet, Take 1 tablet (75 mcg total) by mouth every morning., Disp: , Rfl: pantoprazole EC (PROTONIX) 40 MG tablet, Take 1 tablet (40 mg total) by mouth daily., Disp: , Rfl: amLODIPine 10 MG tablet, Take 1 [...] IJ, Via internal pump, Disp: , Rfl: lisinopril (PRINIVIL) 5 MG [...] becomes available, Disp: 1 each, Rfl: PRN [place]-3 Fatty Acids (FISH OIL) 500 MG capsule, Take 1,000 mg by mouth daily., Disp: , Rfl: OZEMPIC 1 mg/dose injection (PEN), Inject into the skin once a week., Disp: , Rfl: traZODone 50 MG tablet, Take 1 tablet (50 mg total) by mouth nightly at bedtime., Disp: , Rfl: TRUE METRIX BLOOD GLUCOSE TEST test strip, , Disp: , Rfl: [facility], , Disp: , Rfl: vitamin D3 (CHOLECALCIFEROL) 25 mcg tablet, Take 1 tablet (25 mcg total) by mouth daily., Disp: , Rfl: Review of patient's allergies indicates: Allergen Reactions Adhesive [Vinyl] Rash and Swelling Possibly Dermabond adhesive, used after surgery Objective: Body mass index is 27.46 kg/m??. Last Recorded Weight 05/31/23 1606 Weight: 74.8 kg (165 lb) Physical exam: Constitutional: Alert and in no acute distress. Neurological: The patient was oriented to person, place, and time. Eyes: The sclera and conjunctiva were normal ENT: Hearing was normal. Neck: The appearance of the neck was normal. Cardiovascular: Normal pulses. Pulmonary: No respiratory distress. Skin: No injuries or skin lesion. Musculoskeletal: Right hip examination demonstrates good range of motion with no discomfort. Left hip motion is mildly restricted and does reproduce groin pain. She is neurovascularly intact. She still has the truncal motion disorder present today. Results: Left hip x-rays demonstrate severe degenerative changes with loss of joint space. Sclerosis is appreciated as well as cam type impingement Assessment: Encounter Diagnose(s) ICD-10-CM SNOMED CT(R) 1. Status post total replacement of right hip Z96.641 HISTORY OF TOTAL HIP ARTHROPLASTY 2. 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 She is struggling now with function becauseof her persistent left hip pain which also causes sleep disturbance. I recommended proceeding with left hip replacement and reviewed risk and benefits. Will plan to proceed with dual mobility left total hip arthroplasty which is the same implant used on the right side. She elects to proceed Patient Education: The planned procedure/s, the expected benefits,the associated risks, possible complications, and alternatives to the procedure/s have been discussed in detail with the patient or family. They state that they understand, have no further questions and agree to proceed with the procedure/s as outlined. Procedure/Surgery: LEFT total hip arthroplasty on 06/21/23 Follow up: Return for Post-Op. ROLDAN OLVERA MD PIN BOWLING CENTRE MANAGER PIN BOWLING CENTRE MANAGER documented in this encounter Nursing Notes * Reshma Cardozo RN - 06/22/2023 1:57 PM CST Patient discharged waiting on ride, states they will be here shortly. PIN BOWLING CENTRE MANAGER documented in this encounter OR Notes * Op Note - Roldan lOvera MD - 06/21/2023 9:29 AM CST Donna Saunders 1955 [id number] 06/21/2023 Preoperative Diagnosis: End-stage left hip osteoarthritis Postoperative Diagnosis: Same Procedure: left total hip arthroplasty using a DePuy Osborne high offset size 7 stem with a +1.5 x 28 mm metal head and a 47 mm dual mobility liner with a 54 mm [place] cup Surgeon: ROLDAN OLVERA MD Anesthesia: Spinal with [...] reamer and stopped reaming at 53 mm. I did touch it with a 54 mm reamer around the entrance to the. Good subchondral bone bleeding was appreciated circumferentially. We then impacted the appropriate size cup obtaining excellent purchase. A trial liner was inserted and we turned our attention to the proximal femur. The box osteotome was used to lateralize access to the canal and the Charnley awl was used to localize thecanal. We then reamed up to the appropriate size to enable fill of the canal and then broached appro priately obtaining excellent purchase in the canal. The calcar reamer was used to even out the calcar and we trialed the neck lengths with offset options considered. Intraoperative x-rays were obtained and I was satisfied with the fill of the canal but the cup position was anteverted. Hip stabilitywas adequate and the trial components were subsequently removed. I then went back and repositioned the In less anteversion and a little more horizontal position. A single screw was inserted to reinforce stability. We then impacted the dual mobility liner and subsequently the stem obtaining excellent purchase. We then impacted the head and dual mobility polyethylene liner and reduced the hip demonstrating satisfactory stability with symmetric leg lengths. The wound was copiously irrigated and the capsule approximated using #1 Vicryl. The piriformis was reattached to the posterior aspect of thegreater trochanter. We then poured Betadine wound irrigant into the wound to reduce the likelihood of infection. The gluteal fascia was then approximated using #1 Vicryl which was also used to close space. Another round of Betadine solution was then poured into the wound. 2-0 strata fix was used to close subcutaneous tissue and 4 oh strata fix was used to complete skin closure using a running subcuticular stitch. A Prineo wound dressing was applied with Dermabond. Sedation was discontinuedthe patient was transferred to the hospital bed then to the PACU in good condition. Estimated bloodloss was 300 cc and sponge and needle counts were correct x2 following the procedure PIN BOWLING CENTRE MANAGER * Brief Op Note - Roldan Olvera MD - 06/21/2023 9:28 AM CST [facility] at [place], other side done 02/26/23 Procedure Note Donna A Chip 06/21/2023 0730 Procedure(s) (LRB): LEFT total hip arthroplasty [facility] notified, Labs to be done at [place], other side done 02/26/23 (Left) Surgeon(s): Roldan Olvera MD Baggage Handling Supervisor: Footwear Machinery Instructor: KATIE Rees Anesthesia: Spinal Pre-Op Diagnosis: M16.2 Post-Op Diagnosis: Same Findings: Estimated Blood Loss: 300 mL Specimens: None ROLDAN OLVERA MD Date: 06/21/2023 Time: 9:29 AM PIN BOWLING CENTRE MANAGER documented in this encounter Plan of Treatment Upcoming Encounters Date Type Department Care Team (Late st Contact Info) Description 04/29/2024 1:45 PM TEN PIN BOWLING CENTRE MANAGER Office Visit [facility] [address] [address] Sujatha Solis, [facility] [address] [place] [address] [place] [address] documented as of this encounter Procedures Procedure Name Priority Date/Time Associated Diagnosis Comments HEMOGLOBIN AND HEMATOCRIT Routine 06/22/2023 5:07 AM TEN PIN BOWLING CENTRE MANAGER POCT GLUCOSE - GERONIMO DOCKED DEVICE Routine 06/21/2023 10:02 AM TEN PIN BOWLING CENTRE MANAGER XR PELVIS 1 OR 2 VIEWS Today 06/21/2023 8:58 AM TEN PIN BOWLING CENTRE MANAGER TOTAL HIP ARTHROPLASTY 06/21/2023 7:13 AM TEN PIN BOWLING CENTRE MANAGER 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 POCT GLUCOSE - GERONIMO DOCKED DEVICE Routine 06/21/2023 7:10 AM TEN PIN BOWLING CENTRE MANAGER documented in this encounter Results * (ABNORMAL) HEMOGLOBIN AND HEMATOCRIT (06/22/2023 5:07 AM TEN PIN BOWLING CENTRE MANAGER) HGB 9.1(L) 12.0 - 16.0 G/DL 06/22/2023 5:45 AM TEN PIN BOWLING CENTRE MANAGER [facility] HCT 27.7(L) 36.0 - 47.0 % 06/22/2023 5:45 AM TEN PIN BOWLING CENTRE MANAGER [facility] 06/22/2023 5:07 AM TEN PIN BOWLING CENTRE MANAGER us Roldan Olvera MD LABORATORY Final Result Performing Organization Address [facility] Co de Phone Number [facility] [address] [place] [phone], * (ABNORMAL) POCT glucose (06/21/2023 10:02 AM TEN PIN BOWLING CENTRE MANAGER) GLUCOSE POC 112(H) 70 - 99 MG/DL 06/21/2023 10:29 AM TEN PIN BOWLING CENTRE MANAGER [facility] 06/21/2023 10:0 2 AM TEN PIN BOWLING CENTRE MANAGER us Roldan Olvera MD POCT ORDERABLES - DEVICE Final Result Performing Organization Address [facility] Phone Number [facility] [address] [place] [id number], [place] [phone] * XR PELVIS 1 OR 2 VIEWS (06/21/2023 8:58 AM TEN PIN BOWLING CENTRE MANAGER) Anatomical Region Laterality Modality Pelvis Radiographic Chanel ging 06/21/2023 4:05 PM TEN PIN BOWLING CENTRE MANAGER Impressions 06/21/2023 4:09 PM TEN PIN BOWLING CENTRE MANAGER IMPRESSION: Left hip arthroplasty. Correlation with the intraprocedural findings required. Ordered By: ROLDAN OLVERA Interpreted By: Abimael Shannon MD, 06/21/2023 4:05 PM Narrative 06/21/2023 4:09 PM TEN PIN BOWLING CENTRE MANAGER Examination: Portable pelvis. Exam time: 0819 hours. Clinical history: Arthritis. Surgical monitoring. Comparison: 05/31/2023, 04/17/2023. Technique: PA right lateral decubitus view (two images). Findings: Acetabular and trial femoral components of left hip arthroplasty are now in place. No fracture, dislocation or other acute bony abnormality is identified. Right hip arthroplasty again evident. No other significant bone or joint abnormality is noted. Correlation with the intraprocedural findings is required. Procedure Note Abimael Shannon MD - 06/21/2023 Examination: Portable pelvis. Exam time: 0819 hours. Clinical history: Arthritis. Surgical monitoring. Comparison: 05/31/2023, 04/17/2023. Technique: PA right lateral decubitus view (two images). Findings: Acetabular and trial femoral components of left hip arthroplastyare now in place. No fracture, dislocation or other acute bony abnormalityis identified. Right hip arthroplasty again evident. No other significantbone or joint abnormality is noted. Correlation with the intraproceduralfindings is required. IMPRESSION: Left hip arthroplasty. Correlation with the intraprocedural findingsrequired. Ordered By: ROLDAN OLVERA Interpreted By: Abimael Shannon MD, 06/21/2023 4:05 PM us Roldan Olvera MD GENERAL IMAGING Final Result * POCT glucose (06/21/2023 7:10 AM TEN PIN BOWLING CENTRE MANAGER) GLUCOSE POC 79 70 - 99 MG/DL 06/21/2023 9:57 AM TEN PIN BOWLING CENTRE MANAGER [facility] 06/21/2023 7:10 AM TEN PIN BOWLING CENTRE MANAGER us Roldan Olvera MD POCT ORDERABLES - DEVICE Final Result [facility] [place] [address], documented in this encounter Visit Diagnoses Diagnosis 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- Primary Secondary localized osteoarthrosis, pelvic region and thigh Status post total replacement of left hip 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 Secondary localized osteoarthrosis, pelvic region and thigh documented in this encounter Admitting Diagnoses Diagnosis 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 Localized osteoarthrosis not specified whether primary or secondary, pelvic region and thigh documented in this encounter Administered Medications Inactive Administered Medications - up to 3 most recent administrations Medication Order MAR Action Action Date Dose Rate Site acetaminophen (TYLENOL) 500 MG tablet 1 dose, Starting on Denia 06/21/23 at 0624, Until Sun06/21/23 at 0705, Created by cabinet override acetaminophen (TYLENOL) tablet 1,000 mg 1,000 mg, Oral, Once, 1 dose, On Sun06/21/23 at 0645, Maximum dose of acetaminophen is 4000 mg from all sources in 24 hours., Pre-Op Given 06/21/2023 7:05 AM TEN PIN BOWLING CENTRE MANAGER 1,000 mg amLODIPine (NORVASC) tablet 10 mg 10 mg, Oral, Daily, First dose on Sun06/21/23 at 1100, Until Discontinued Given 06/22/2023 8:35 AM TEN PIN BOWLING CENTRE MANAGER 10 mg Given 06/21/2023 1:02 PM TEN PIN BOWLING CENTRE MANAGER 10 mg aspirin EC (ECOTRIN) tablet 81 mg 81 mg, Oral, 2 times daily with meals, First dose on Sun06/22/23 at 0800, Until Discontinued, Start the morning after surgery Do not break, chew, or crush., Post-Op Given 06/22/2023 8:36 AM TEN PIN BOWLING CENTRE MANAGER 81 mg atorvastatin (LIPITOR) tablet 40 mg 40 mg, Oral, Daily, First dose on Sun06/21/23 at 1100, Until Discontinued Given 06/22/2023 8:35 AM TEN PIN BOWLING CENTRE MANAGER 40 mg Given 06/21/2023 1:02 PM TEN PIN BOWLING CENTRE MANAGER 40 mg ceFAZolin (ANCEF) 2 g in sodium chloride 0.9 % 50 mL IVPB 2 g, Intravenous, at 100 mL/hr, Every 8 hours, 2 doses, First dose on Denia 06/21/23 at 1530, Last dose on Sun06/21/23 at 2330, Give 2 gram dose for patients less than 120 kg. PHARMACY TO ADJUST administration times based on pre-op/intra-op dose. Do NOT continue greater than 24 hours after anesthesia end time., Post-Op New Bag 06/21/2023 11:14 PM TEN PIN BOWLING CENTRE MANAGER 2 g 100 mL/hr New Bag 06/21/2023 3:31 PM TEN PIN BOWLING CENTRE MANAGER 2 g 100 mL/hr celecoxib (CeleBREX) 100 MG capsule 1 dose, Starting on Sun06/21/23 at 0624, Until Sun06/21/23 at 0705, Created by cabinet override celecoxib (CeleBREX) capsule 200 mg 200 mg, Oral, Once, 1 dose, On Sun06/21/23 at 0645, Do not administer with antacids, Pre-Op Given 06/21/2023 7:05 AM TEN PIN BOWLING CENTRE MANAGER 200 mg chlorhexidine (PERIDEX) 0.12 % solution 15 mL 15 mL, Mouth/Throat, PRN, Prior to surgery, 1 dose, Starting on Sun06/21/23 at 0624, Until Sun06/21/23 at 0706, Patient to perform oral care first. Swish/Gargle in mouth for 30 seconds, and then discard, prior to going to surgery/ If ventilated use saturated swab to clean oral cavity., Pre-Op Given 06/21/2023 7:06 AM TEN PIN BOWLING CENTRE MANAGER 15 mLs cyanocobalamin (B-12) injection 1,000 mcg 1,000 mcg, Intramuscular, Weekly, First dose (after last modification) on Sun06/25/23 at 0900, Until Discontinued cyclobenzaprine (FLEXERIL) tablet 10 mg 10 mg, Oral, 3 times daily PRN, Muscle Spasms, Starting on Sun06/22/23 at 1211, Until Sun06/22/23 at 1657 Given 06/22/2023 12:18 PM TEN PIN BOWLING CENTRE MANAGER 10 mg diphenhydrAMINE (BENADRYL) 12.5 MG/5ML elixir 25 mg 25 mg, Oral, Every 6 hours PRN, Itching, Starting on Sun06/21/23 at 1117, Until Sun06/22/23 at 1657, Give if unable to swallow tablets/capsules or if patient prefers liquid., Post-Op diphenhydrAMINE (BENADRYL) capsule 25 mg 25 mg, Oral, Every 6 hours PRN, Itching, Starting on Sun06/21/23 at 1117, Until Sun06/22/23 at 1657, Post-Op diphenhydrAMINE (BENADRYL) injection 25 mg 25 mg, Intravenous, Every 6 hours PRN, Itching, Starting on Sun06/21/23 at 1117, Until Sun06/22/23 at 1657, Give if unable to take PO. For IV administration, give no faster than 25 mg/min., Post-Op docusate sodium (COLACE) capsule 100 mg 100 mg, Oral, 2 times daily, First dose on Sun06/21/23 at 1145, Until Discontinued, Post-Op Given 06/22/2023 8:35 AM TEN PIN BOWLING CENTRE MANAGER 100 mg Given 06/21/2023 8:26 PM TEN PIN BOWLING CENTRE MANAGER 100 mg Given 06/21/2023 1:03 PM TEN PIN BOWLING CENTRE MANAGER 100 mg famotidine (PEPCID) 20 MG tablet 1 dose, Starting on Denia 06/21/23 at 0640, Until Denia 06/21/23 at 0705, Created by cabinet override famotidine (PEPCID) tablet 20 mg 20 mg, Oral, Once, 1 dose, On Denia 06/21/23 at 0630 Given 06/21/2023 7:05 AM TEN PIN BOWLING CENTRE MANAGER 20 mg HYDROcodone-acetaminophen (NORCO) 10-325 MG tablet 1 tablet 1 tablet, Oral, Every 4 hours PRN, Severe pain (Scale 8 - 10), Starting on Denia 06/21/23 at 1117, Until Denia 06/21/23 at 1602, Maximum dose of acetaminophen is 4000 mg from all sources in 24 hours., Post-Op Given 06/21/2023 1:04 PM TEN PIN BOWLING CENTRE MANAGER 1 tablet HYDROmorphone (DILAUDID) 1 MG/ML injection 1 dose, Starting on Denia 06/21/23 at 1006, Until Denia 06/21/23 at 1010, Created by cabinet override HYDROmorphone (DILAUDID) injection 0.5 mg 0.5 mg, Intravenous, Every 10 min PRN, Moderate pain (Scale 4 - 7), 4 doses, Starting on Denia 06/21/23 at 1005, Until Denia 06/21/23 at 1038, Maximum cumulative dose 1 mg. Do not administer if patient is overly sedated, SpO2 less than 90%, or Respiratory Rate less than 12. If more than one IV analgesic is ordered per pain level, use in this order: fentaNYL, morphine, HYDROmorphone. If desired pain control is not reached, move to next ordered medication at next dosing interval., PACU Given 06/21/2023 10:10 AM T[employer] MANAGER 0.5 mg lactated ringers infusion at 10 mL/hr, Intravenous, Continuous, Starting on Denia 06/21/23 at 0645, Until Denia 06/21/23 at 1124, Infuse at TKO rate, Pre-Op Restarted 06/21/2023 7:58 AM [employer] Continued by Anesthesia 06/21/2023 7:28 AM [employer] MANAGER 10 mL/hr New Bag 06/21/2023 7:13 AM [employer]NAGER 10 mL/hr levothyroxine (SYNTHROID) tablet 75 mcg 75 mcg, Oral, Every morning, First dose on Sun06/22/23 at 0700, Until Discontinued, Avoid iron, calcium, and antacids within 4 hours of administration. Given 06/22/2023 6:16 AM [employer] MA[employer]GER 75 mcg lidocaine-prilocaine (EMLA) 2.5-2.5 % cream 1 dose, Starting on Sun06/21/23 at 0635, Until Sun06/21/23 at 0706, Created by yves clement lidocaine-prilocaine (EMLA) cream Topical, Once as needed, Mild pain (Scale 1 - 3), 1 dose, Starting on Sun06/21/23 at 0624, Until Sun06/21/23 at 0706, Apply 30-60 minutes prior to procedure for IV insertion. May place cream to at least 2-3 areas in case of difficulties. , Pre-Op Given 06/21/2023 7:06 AM [employer]GER lisinopril (PRINIVIL) tablet 5 mg 5 mg, Oral, Daily, First dose on Sun06/21/23 at 1100, Until Discontinued Given 06/22/2023 8:35 AM [employer]GER 5 mg losartan (COZAAR) tablet 50 mg 50 mg, Oral, Daily, First dose on Sun06/21/23 at 1100, Until Discontinued Given 06/22/2023 8:35 AM [employer]GER 50 mg meloxicam (MOBIC) tablet 7.5 mg 7.5 mg, Oral, Daily, First dose on Sun06/21/23 at 1100, Until Discontinued Given 06/22/2023 8:35 AM [employer] MANAGER 7.5 mg Given 06/21/2023 1:02 PM [employer]NAGER 7.5 mg metFORMIN ER (GLUCOPHAGE-XR) 24 hr tablet 500 mg 500 mg, Oral, Nightly at bedtime, First dose on Sun06/21/23 at 2100, Until Discontinued, Do not break, chew, or crush. Given 06/21/2023 8:26 PM [employer]NAGER 500 mg metoclopramide (REGLAN) 10 MG tablet 1 dose, Starting on Sun06/21/23 at 0640, Until Sun06/21/23 at 0705, Created by yves clement metoclopramide (REGLAN) tablet 10 mg 10 mg, Oral, Once, 1 dose, On Sun06/21/23 at 0630 Given 06/21/2023 7:05 AM [employer]GER 10 mg naLOXone (NARCAN) injection 0.4 mg 0.4 mg, Intravenous, As needed, Opioid reversal, Starting on Sun06/21/23 at 1055, Until Sun06/22/23 at 1657 oxyCODONE-acetaminophen (PERCOCET) 10-325 MG tablet 1 tablet 1 tablet, Oral, Every 4 hours PRN, Severe pain (Scale 8 - 10), Starting on Sun06/21/23 at 1602, Until Sun06/22/23 at 1657, Maximum dose of acetaminophen is 4000 mg from all sources in 24 hours. Given 06/22/2023 12:18 PM [employer] MANAGER 1 tablet Given 06/22/2023 3:42 AM [employer] MANAGER 1 tablet Given 06/21/2023 8:27 PM [employer] MANAGER 1 tablet oxyCODONE-acetaminophen (PERCOCET) 5-325 MG tablet 1 tablet 1 tablet, Oral, Every 4 hours PRN, Moderate pain (Scale 4 - 7), Starting on Sun06/21/23 at 1602, Until Sun06/22/23 at 1657, Maximum dose of acetaminophen is 4000 mg from all sources in 24 hours. Given 06/22/2023 8:34 AM [employer] MANAGER 1 tablet pantoprazole EC (PROTONIX) tablet 40 mg 40 mg, Oral, Daily, First dose on Sun06/21/23 at 1100, Until Discontinued, Do not break, chew, or crush. Given 06/22/2023 8:36 AM [employer] MANAGER 40 mg Given 06/21/2023 1:02 PM [employer]NAGER 40 mg vitamin D3 (cholecalciferol) tablet 25 mcg 25 mcg, Oral, Daily, First dose on Sun06/21/23 at 1100, Until Discontinued Given 06/22/2023 8:35 AM [employer] MANAGER 25 mcg Given 06/21/2023 1:02 PM [employer]GER 25 mcg zolpidem (AMBIEN) tablet 5 mg 5 mg, Oral, Nightly at bedtime, First dose on Sun06/21/23 at 2100, Until Discontinued, May repeat x1 if necessary Given 06/21/2023 8:26 PM [employer] MANAGER 5 mg documented in this encounter Active and Recently Administered Medications Times are shown in [employer]GER. Scheduled Medication Order 06/20/2023 06/21/2023 06/22/2023 acetaminophen (TYLENOL) tablet 1,000 mg (COMPLETED) 1,000 mg, Oral, Once, 1 dose, On Denia 06/21/23 at 0645, Maximum dose of acetaminophen is 4000 mg from all sources in 24 hours., Pre-Op 07 (Given - Provider: Cynthia Kennedy RN) amLODIPine (NORVASC) tablet 10 mg 10 mg, Oral, Daily, First dose on Denia 06/21/23 at 1100, Until Discontinued 1302 (Given - Provider: Yanira Castellanos RN) 0835 (Given - Provider: Reshma Cardozo RN) aspirin EC (ECOTRIN) tablet 81 mg 81 mg, Oral, 2 times daily with meals, First dose on Sun06/22/23 at 0800, Until Discontinued, Start the morning after surgery Do not break, chew, or crush., Post-Op 0836 (Given - Provid er: Reshma Cardozo RN) atorvastatin (LIPITOR) tablet 40 mg 40 mg, Oral, Daily, First dose on Denia 06/21/23 at 1100, Until Discontinued 1302 (Given - Provider: Yanira Castellanos RN) 0835 (Given - Provider: Reshma Cardozo RN) ceFAZolin (ANCEF) 2 g in sodium chloride 0.9 % 50 mL IVPB (COMPLETED) 2 g, Intravenous, at 100 mL/hr, call center manager, 1 dose, On Denia 06/21/23 at 0645, Give 2 gram dose for patients less than 120 kg. Give within 60 minutes of surgical incision., Pre-Op 07 (New Bag - Provider: Madeline Long CRNA)0759 (Infusion Stop Time - Provider: Madeline Long CRNA) ceFAZolin (ANCEF) 2 g in sodium chloride 0.9 % 50 mL IVPB (COMPLETED) 2 g, Intravenous, at 100 mL/hr, Every 8 hours, 2 doses, First dose on Denia 06/21/23 at 1530, Last dose on Denia 06/21/23 at 2330, Give 2 gram dose for patients less than 120 kg. PHARMACY TO ADJUST administration times based on pre-op/intra-op dose. Do NOT continue greater than 24 hours after anesthesia end time., Post-Op 1531 (New Bag - Provider: Yanira Castellanos RN)1602 (Infusion Stop Time - Provider: Yanira Castellanos RN)2314 (New Bag - Provider: Elena Guadalupe RN)2346 (Infusion Stop Time - Provider: Elena Guadalupe RN) celecoxib (CeleBREX) capsule 200 mg (COMPLETED) 200 mg, Oral, Once, 1 dose, On Sun06/21/23 at 0645, Do not administer with antacids, Pre-Op 0705 (Given - Provider: Cynthia Kennedy RN) cyanocobalamin (B-12) injection 1,000 mcg 1,000 mcg, Intramuscular, Weekly, First dose (after last modification) on Sun06/25/23 at 0900, Until Discontinued docusate sodium (COLACE) capsule 100 mg 100 mg, Oral, 2 times daily, First dose on Sun06/21/23 at 1145, Until Discontinued, Post-Op 1303 (Given - Provider: Yanira Castellanos RN)2026 (Given - Provider: Elena Guadalupe RN) 0835 (Given - Provider: Reshma Cardozo RN) famotidine (PEPCID) tablet 20 mg (COMPLETED) 20 mg, Oral, Once, 1 dose, On Sun06/21/23 at 0630 0705 (Given - Provider: Cynthia Kennedy RN) levothyroxine (SYNTHROID) tablet 75 mcg 75 mcg, Oral, Every morning, First dose on Sun06/22/23 at 0700, Until Discontinued, Avoid iron, calcium, and antacids within 4 hours of administration. 0616 (Given - Provid er: Elena Guadalupe RN) lisinopril (PRINIVIL) tablet 5 mg 5 mg, Oral, Daily, First dose on Sun06/21/23 at 1100, Until Discontinued 1200 (Not Given - Provider: Yanira Castellanos RN - Reason: Provider Order - Comment: Instructed to hold due to low BP, per Dr. Olvera.) 0835 (Given - Provider: Resham Cardozo RN) losartan (COZAAR) tablet 50 mg 50 mg, Oral, Daily, First dose on Denia 06/21/23 at 1100, Until Discontinued 1200 (Not Given - Provider: Yanira Castellanos RN - Reason: Provider Order - Comment: Instructed to hold due to low BP, per Dr. Olvera.) 0835 (Given - Provider: Reshma Cardozo, RN) meloxicam (MOBIC) tablet 7.5 mg 7.5 mg, Oral, Daily, First dose on Denia 06/21/23 at 1100, Until Discontinued 1302 (Given - Provider: Yanira Castellanos RN) 0835 (Given - Provider: Reshma Cardozo RN) metFORMIN ER (GLUCOPHAGE-XR) 24 hr tablet 500 mg 500 mg, Oral, Nightly at bedtime, First dose on Denia 06/21/23 at 2100, Until Discontinued, Do not break, chew, or crush. 2025 (Given - Provider: Elena Guadalupe RN) metoclopramide (REGLAN) tablet 10 mg (COMPLETED) 10 mg, Oral, Once, 1 dose, On Denia 06/21/23 at 0630 0705 (Given - Provider: Cynthia Kennedy RN) pantoprazole EC (PROTONIX) tablet 40 mg 40 mg, Oral, Daily, First dose on Denia 06/21/23 at 1100, Until Discontinued, Do not break, chew, or crush. 1302 (Given - Provider: Yanira Castellanos RN) 0836 (Given - Provider: Reshma Cardozo RN) tranexamic acid (CYKLOKAPRON) injection 1,000 mg (COMPLETED) 1,000 mg, Intravenous, Once, 1 dose, On Denia 06/21/23 at 0645, PHARMACIST TO ADJUST dose based on SCr (SCr less than 1.6 = 1,000 mg; SCr 1.6-3.3 = 750 mg; SCr 3.4-6.6 = 500 mg; SCr greater than 6.6 = 250 mg). Administer dose over 15 minutes prior to incision., Pre-Op 0742 (Given - Provider: Madeline Long CRNA)0752 (Infusion Stop Time - Provider: Madeline Long CRNA) vitamin D3 (cholecalciferol) tablet 25 mcg 25 mcg, Oral, Daily, First dose on Denia 06/21/23 at 1100, Until Discontinued 1302 (Given - Provider: Yanira Castellanos RN) 0835 (Given - Provider: Reshma Cardozo RN) zolpidem (AMBIEN) tablet 5 mg 5 mg, Oral, Nightly at bedtime, First dose on Denia 06/21/23 at 2100, Until Discontinued, May repeat x1 if necessary 2025 (Given - Provider: Elena Guadalupe, UNA) Continuous Medication Order 06/20/2023 06/21/2023 06/22/2023 lactated ringers infusion (CANCELED) at 10 mL/hr, Intravenous, Continuous, Starting on Denia 06/21/23 at 0645, Until Denia 06/21/23 at 1124, Infuse at TKO rate, Pre-Op 0713 (New Bag - Provider: Oriana Kennedy RN)0728 (Continued by Anesthesia - Provider: Madeline Long CRNA)0757 (Paused - Provider: Madeline Long CRNA - Comment: Switch to gravity)0758 (Restarted - Provider: Madeline Long CRNA)0853 (Anesthesia Volume Adjustment - Provider: Madeline Long CRNA)0924 (Anesthesia Volume Adjustment - Provider: Albaro Estrada MD) PRN Medication Order 06/20/2023 06/21/2023 06/22/2023 acetaminophen (TYLENOL) tablet 650 mg 650 mg, Oral, Every 4 hours PRN, Mild pain (Scale 1 - 3), Fever, Starting on Denia 06/21/23 at 1117, Until Sun06/22/23 at 1657, Maximum dose of acetaminophen is 4000 mg from all sources in 24 hours., Post-Op bisacodyl (DULCOLAX) suppository 10 mg 10 mg, Rectal, Daily as needed, Constipation, Starting on Denia 06/21/23 at 1117, Until Sun06/22/23 at 1657, If more than one PRN medication for constipation is ordered, use in this order: polyethylene glycol (MIRALAX), senna, bisacodyl (DULCOLAX) EC tablet PO, bisacodyl (DULCOLAX) suppository. If no results by next dosing interval, move to next option, Post-Op bisacodyl EC (DULCOLAX) tablet 5 mg 5 mg, Oral, Daily as needed, Constipation, Starting on Denia 06/21/23 at 1117, Until Sun06/22/23 at 1657, If more than one PRN medication for constipation is ordered, use in this order: polyethylene glycol (MIRALAX), senna, bisacodyl (DULCOLAX) EC tablet PO, bisacodyl (DULCOLAX) suppository. If no results by next dosing interval, move to next option Do not break, chew, or crush., Post-Op chlorhexidine (PERIDEX) 0.12 % solution 15 mL (COMPLETED) 15 mL, Mouth/Throat, PRN, Prior to surgery, 1 dose, Starting on Denia 06/21/23 at 0624, Until Sun06/21/23 at 0706, Patient to perform oral care first. Swish/Gargle in mouth for 30 seconds, and then discard, prior to going to surgery/ If ventilated use saturated swab to clean oral cavity., Pre-Op 705 (Given - Provider: Cynthia Kennedy RN) cyclobenzaprine (FLEXERIL) tablet 10 mg 10 mg, Oral, 3 times daily PRN, Muscle Spasms, Starting on Sun06/22/23 at 1211, Until Sun06/22/23 at 1657 1218 (Given - Provid er: Reshma Cardozo RN) diphenhydrAMINE (BENADRYL) 12.5 MG/5ML elixir 25 mg(Linked Group 1) 25 mg, Oral, Every 6 hours PRN, Itching, Starting on Denia 06/21/23 at 1117, Until Sun06/22/23 at 1657, Give if unable to swallow tablets/capsules or if patient prefers liquid., Post-Op diphenhydrAMINE (BENADRYL) capsule 25 mg(Linked Group 1) 25 mg, Oral, Every 6 hours PRN, Itching, Starting on Denia 06/21/23 at 1117, Until Sun06/22/23 at 1657, Post-Op diphenhydrAMINE (BENADRYL) injection 25 mg(Linked Group 1) 25 mg, Intravenous, Every 6 hours PRN, Itching, Starting on Denia 06/21/23 at 1117, Until Sun06/22/23 at 1657, Give if unable to take PO. For IV administration, give no faster than 25 mg/min., Post-Op HYDROcodone-acetaminophen (NORCO) 10-325 MG tablet 1 tablet (CANCELED) 1 tablet, Oral, Every 4 hours PRN, Severe pain (Scale 8 - 10), Starting on Denia 06/21/23 at 1117, Until Denia 06/21/23 at 1602, Maximum dose of acetaminophen is 4000 mg from all sources in 24 hours., Post-Op 1304 (Given - Provider: Yanira Castellanos RN) HYDROmorphone (DILAUDID) injection 0.5 mg (CANCELED) 0.5 mg, Intravenous, Every 10 min PRN, Moderate pain (Scale 4 - 7), 4 doses, Starting on Denia 06/21/23 at 1005, Until Denia 06/21/23 at 1038, Maximum cumulative dose 1 mg. Do not administer if patient is overly sedated, SpO2 less than 90%, or Respiratory Rate less than 12. If more than one IV analgesic is ordered per pain level, use in this order: fentaNYL, morphine, HYDROmorphone. If desired pain control is not reached, move to next ordered medication at next dosing interval., PACU 1010 (Given - Provider: Marsha Alexander RN) lidocaine-prilocaine (EMLA) cream (COMPLETED) Topical, Once as needed, Mild pain (Scale 1 - 3), 1 dose, Starting on Denia 06/21/23 at 0624, Until Denia 06/21/23 at 0706, Apply 30-60 minutes prior to procedure for IV insertion. May place cream to at least 2-3 areas in case of difficulties. , Pre-Op 0706 (Given - Provider: Cynthia Kennedy RN) morphine injection 4 mg 4 mg, Intravenous, Every 2 hours PRN, Other, Breakthrough Pain, Starting on Denia 06/21/23 at 1117, Until Sun06/22/23 at 1116, Post-Op naLOXone (NARCAN) injection 0.4 mg 0.4 mg, Intravenous, As needed, Opioid reversal, Starting on Denia 06/21/23 at 1055, Until Sun06/22/23 at 1657 ondansetron (ZOFRAN) injection 4 mg 4 mg, Intravenous, Every 8 hours PRN, Nausea, Vomiting, Starting on Denia 06/21/23 at 1117, Until Sun06/22/23 at 1657, If more than one antiemetic is ordered use in this order: ondansetron then metoclopramide. If nausea / vomiting still not controlled move to next ordered medication., Post-Op oxyCODONE-acetaminophen (PERCOCET) 10-325 MG tablet 1 tablet 1 tablet, Oral, Every 4 hours PRN, Severe pain (Scale 8 - 10), Starting on Denia 06/21/23 at 1602, Until Sun06/22/23 at 1657, Maximum dose of acetaminophen is 4000 mg from all sources in 24 hours. 1610 (Given - Provider: Yanira Castellanos RN)2027 (Given - Provider: Elena Guadalupe RN) 0342 (Given - Provider: Elena Guadalupe RN)1218 (Given - Provider: Reshma Cardozo RN) oxyCODONE-acetaminophen (PERCOCET) 5-325 MG tablet 1 tablet 1 tablet, Oral, Every 4 hours PRN, Moderate pain (Scale 4 - 7), Starting on Denia 06/21/23 at 1602, Until Sun06/22/23 at 1657, Maximum dose of acetaminophen is 4000 mg from all sources in 24 hours. 0834 (Given - Provid er: Reshma Cardozo RN) polyethylene glycol (GLYCOLAX) packet 17 g 17 g, Oral, Daily as needed, Constipation, Starting on Denia 06/21/23 at 1117, Until Sun06/22/23 at 1657, If more than one PRN medication for constipation is ordered, use in this order: polyethylene glycol (MIRALAX), senna, bisacodyl (DULCOLAX) EC tablet PO, bisacodyl (DULCOLAX) suppository. If no results by next dosing interval, move to next option, Post-Op sodium chloride 0.9 % 3,000 mL with gentamicin 320 mg irrigation (CANCELED) As needed, Starting on Denia 06/21/23 at 0932, Until Denia 06/21/23 at 0953, Intra-Op 0932 (Given - Provider: Roldan Olvera MD) Linked Groups Order Group 1: diphenhydrAMINE (BENADRYL) injection 25 mgJump to med 25 mg, Intravenous, Every 6 hours PRN, Itching, Starting on Denia 06/21/23 at 1117, Until Sun06/22/23 at 1657, Give if unable to take PO. For IV administration, give no faster than 25 mg/min., Post-Op Or diphenhydrAMINE (BENADRYL) capsule 25 mgJump to med 25 mg, Oral, Every 6 hours PRN, Itching, Starting on Denia 06/21/23 at 1117, Until Sun06/22/23 at 1657, Post-Op Or diphenhydrAMINE (BENADRYL) 12.5 MG/5ML elixir 25 mgJump to med 25 mg, Oral, Every 6 hours PRN, Itching, Starting on Denia 06/21/23 at 1117, Until Sun06/22/23 at 1657, Give if unable to swallow tablets/capsules or if patient prefers liquid., Post-Op documented in this encounter Care Teams Crm Marketing Executive Relationship Specialty Start Date End Date Asif Hood DO [address] [place] [address] PCP - General FAMILY PRACTICE 09/29/21 documented as of this encounter
--- OUTSIDE RECORDS SUMMARY | 2024-04-23 21:37 | XMS_ITS | Encounter Summary ---
Author Organization [facility] System Address [address] [place] [address]. [place] [address] [place] [address] Care Team Providers Care Uncrater Name Role Phone Asif Coto DO Primary Care Provider [phone] Reason for Referral * Physical Medicine (Routine) - New Request Specialty Diagnoses / Procedures Referred By Caity garcia Referred To Contact PHYSICAL THERAPY Diagnoses Primary osteoarthritis of left hip Procedures OFFICE/OUTPATIENT NEW LOW MDM 30-44 MINUTES OFFICE/OUTPT VISIT,NEW,LEVL IV OFFICE/OUTPT VISIT,NEW,LEVL V OFFICE/OUTPT VISIT,EST,LEVL III OFFICE/OUTPT VISIT,EST,LEVL IV OFFICE/OUTPT VISIT,EST,LEVL V Roldan Rader MD [address] [place] [address] Phone: tel: fax: [facility] [address] [place] [phone] Phone: tel: fax: Referral ID Status Reason Start Date Expiration Date Visits Requested Visits Authorized [id number] New Request Physical Therapy 06/01/2023 07/01/2024 1 1 TRO MECHANIC Encounter Details Date Type Department Care Team (Late st Contact Info) Description 05/31/2023 Orders Only [facility] [place] [address] Roldan Rader MD [address] [place] [address] Social History Tobacco Use Types Packs/Day Years Used Date Smoking Tobacco: Former Cigarettes Smokeless Tobacco: Never Alcohol Use Standard Drinks/Week Comments Not Currently 0 (1 standard drink = 0.6 oz pur e alcohol) [facility] Utilities Answer Date Recorded In the past 12 months has e [employer], gas, oil, or water [employer] threatened to shut off services in your [...] How often do you attend faith or pentecostal serv ices? Patient declined 02/26/2023 Do you [...] Sexual Orientation Straight 02/26/2023 1: 40 PM ELECTRO MECHANIC documented as of this encounter Functional Status * Are you deaf or do you have serious difficulty hearing Answer Date of Assessment Author Status No 02/26/2023 1:46 PM ELECTRO MECHANIC Casie Mcduffie RN Active * Are you blind or do you have serious difficulty seeing, even when wearing glasses? Answer Date of Assessment Author Status No 02/26/2023 1:46 PM ELECTRO MECHANIC Casie Mcduffie RN Active * Do you have serious difficulty walking or climbing stairs? Answer Date of Assessment Author Status No 02/26/2023 1:46 PM ELECTRO MECHANIC Casie Mcduffie RN Active * Do you have difficulty dressing or bathing? Answer Date of Assessment Author Status No 02/26/2023 1:46 PM ELECTRO MECHANIC Casie Mcduffie RN Active * Because of a physical, mental, or emotional condition, do you have difficulty doing errands alone such as visiting a doctor's office or shopping? Answer Date of Assessment Author Status No 02/26/2023 1:46 PM ELECTRO MECHANIC Casie Mcduffie RN Active documented as of this encounter Mental Status * Because of a physical, mental, or emotional condition, do you have serious difficulty concentrating, remembering, or making decisions? Answer Entry Date Author Status No 02/26/2023 1:46 PM ELECTRO MECHANIC Casie Mcduffie RN Active documented in this encounter Progress Notes * KATIE Rees - 06/01/2023 9:33 AM CSTAddended by: LEELA LAN on: 06/01/2023 09:33 AM Modules accepted: Orders TRO MECHANIC documented in this encounter Plan of Treatment Upcoming Encounters Date Type Department Care Team (Late st Contact Info) Description 04/29/2024 1:45 PM ELECTRO MECHANIC [place] [address] Sujatah Solis, [employer]- [address] [address] Scheduled Referrals Name Type Priority Associated Diagnoses Orde r Schedule Ambulatory referral to Physical Therapy Referral Routine Primary osteoarthritis of left hip Ordered: 06/01/2023 documented as of this encounter Results * (ABNORMAL) URINALYSIS WI REFLEX TO CULTURE (06/04/2023 3:20 PM ELECTRO MECHANIC) COLOR (U) YELLOW 06/04/2023 3:46 PM ELECTRO MECHANIC [facility] TRANSPARENCY CLEAR 06/04/2023 3:46 PM ELECTRO MECHANIC [facility] SPECIFIC GRAVITY (U) 1.025 1.000 - 1.025 06/04/2023 3:46 PM ELECTRO MECHANIC [facility] U PH 6.0 5.0 - 8.0 06/04/2023 3:46 PM ELECTRO MECHANIC [facility] LEUKOCYTES (U) NEGATIVE NEGATIVE 06/04/2023 3:46 PM ELECTRO MECHANIC [facility] NITRITES NEGATIVE NEGATIVE 06/04/2023 3:46 PM ELECTRO MECHANIC [facility] PROTEIN RANDOM (U) NEGATIVE NEGATIVE 06/04/2023 3:46 PM ELECTRO MECHANIC [facility] GLUCOSE (U) NEGATIVE NEGATIVE 06/04/2023 3:46 PM ELECTRO MECHANIC [facility] KETONES MG/DL (U) TRACE(A) NEGATIVE 06/04/2023 3:46 PM ELECTRO MECHANIC [facility] UROBILINOGEN 0.2 <1.0 EU/DL 06/04/2023 3:46 PM ELECTRO MECHANIC [facility] BILIRUBIN (U) NEGATIVE NEGATIVE 06/04/2023 3:46 PM ELECTRO MECHANIC [facility] BLOOD (U) NEGATIVE NEGATIVE 06/04/2023 3:46 PM ELECTRO MECHANIC [facility] WBC/HPF 0-5 0 - 5 /HPF 06/04/2023 3:46 PM ELECTRO MECHANIC [facility] RBC/HPF 5-10(A) 0 - 5 /HPF 06/04/2023 3:46 PM ELECTRO MECHANIC [facility] MUCUS PRESENT 06/04/2023 3:46 PM ELECTRO MECHANIC [facility] REFLEX URINE CULTURE: NOT INDICATED 06/04/2023 3:46 PM [facility] URINE SPECIMEN OBTAINED BY CLEAN CATCH PROCEDURE / Unknown 06/04/2023 3:20 PM ELECTRO MECHANIC Roldan Rader MD URINE ORDERABLES Final Result [facility] [address] [employer] [place] [address], * (ABNORMAL) BASIC METABOLIC PANEL (06/04/2023 3:18 PM ELECTRO MECHANIC) SODIUM S/P/B 141 136 - 145 MMOL/L 06/04/2023 3:34 PM [facility] POTASSIUM S/P/B 4.0 3.5 - 5.1 MMOL/L 06/04/2023 3:34 PM [facility] CHLORIDE S/P/B 104 98 - 107 MMOL/L 06/04/2023 3:34 PM [facility] CO2 28.0 21.0 - 32.0 MMOL/L 06/04/2023 3:34 PM [facility] GLUCOSE 85 70 - 99 MG/DL 06/04/2023 3:34 PM [facility] Comment: FASTING GLUCOSE 100 TO 125 MG/DL IS CONSISTENT WITH IMPAIRED FASTING GLUCOSE. FASTING GLUCOSE >125 MG/DL IS CONSISTENT WITH DIABETES. RANDOM GLUCOSE >200 MG/DL WITH HYPERGLYCEMIC SYMPTOMS IS CONSISTENT WITH DIABETES. PER ADA GUIDELINES BUN 12 6 - 24 MG/DL 06/04/2023 3:34 PM [facility] CREATININE S/P/B 0.95 0.55 - 1.02 MG/DL 06/04/2023 3:34 PM [facility] CALCIUM S/P/B 9.6 8.4 - 10.5 MG/DL 06/04/2023 3:34 PM [facility] ANION GAP 9.0 5.0 - 15.0 MMOL/L 06/04/2023 3:34 PM [facility] OSMOLALITY (CALC) 291 MOSM/KG 024 3:34 PM [facility] Comment:REFERENCE RANGE NOT ESTABLISHED GFR ESTIMATE 65(L) >89 ML/MIN/1. 73 M2 06/04/2023 3:34 PM ELECTRO MECHANIC [facility] GFR NOTES GFR REFERENCE S: 06/04/2023 3:34 PM ELECTRO MECHANIC [facility] Comment: THE ESTIMATED GFR IS CALCULATED [...] ml/min/1.73 m2 G5,KIDNEY FAILURE: <15 ml/min/1.73 m2 06/04/2023 3:18 PM ELECTRO MECHANIC Roldan Rader MD LABORATORY Final Result [facility] [address] [place] [address], * (ABNORMAL) CBC W/DIFF AUTOMATED (06/04/2023 3:18 PM ELECTRO MECHANIC) WBC 8.61 4.00 - 10.80 x10'3/uL 06/04/2023 3:38 PM ELECTRO MECHANIC [facility] RBC 5.01 4.10 - 5.40 x10'6/uL 06/04/2023 3:38 PM ELECTRO MECHANIC [facility] HGB 14.0 12.0 - 16.0 G/DL 06/04/2023 3:38 PM ELECTRO MECHANIC [facility] HCT 43.0 36.0 - 47.0 % 06/04/2023 3:38 PM ELECTRO MECHANIC [facility] MCV 85.8 78.0 - 100.0 FL 06/04/2023 3:38 PM ELECTRO MECHANIC [facility] MCH 27.9 27.0 - 31.0 PG 06/04/2023 3:38 PM [facility] MCHC 32.6(L) 33.0 - 36.0 G/DL 06/04/2023 3:38 PM [facility] RDW 13.2 11.5 - 14.5 % 06/04/2023 3:38 PM [facility] PLT 347 150 - 350 x10'3/uL 06/04/2023 3:38 PM [facility] MPV 9.9 7.4 - 10.4 FL 06/04/2023 3:38 PM [facility] CBC COMMENT NORMAL REFERENCE RANGE NOT ESTABLISHED FOR THE PROPORTIONAL LEUKOCYTE DIFFERENTIAL. 06/04/2023 3:38 PM [facility] NEUTROPHILS % 67.6 % 06/04/2023 3:38 PM [facility] LYMPHOCYTES % 23.3 % 06/04/2023 3:38 PM [facility] MONOCYTES % 6.6 % 06/04/2023 3:38 PM [facility] EOSINOPHILS % 1.7 % 06/04/2023 3:38 PM [facility] BASOPHILS % 0.6 % 06/04/2023 3:38 PM [facility] IMMATURE GRANS % 0.2 % 06/04/19 3:38 PM [facility] NRBC 0.0 % 06/04/2023 3:38 PM [facility] ABS. NEUTROPHILS 5.81 1.60 - 8.30 x10'3/uL 06/04/2023 3:38 PM [facility] ABS. LYMPHOCYTES 2.01 0.80 - 4.70 x10'3/uL 06/04/2023 3:38 PM [facility] ABS. MONOCYTES 0.57 0.00 - 1.50 x10'3/uL 06/04/2023 3:38 PM [facility] ABS. EOSINOPHILS 0.15 0.00 - 0.40 x10'3/uL 06/04/2023 3:38 PM [facility] ABS. BASOPHILS 0.05 0.00 - 0.20 x10'3/uL 06/04/2023 3:38 PM ELECTRO MECHANIC [facility] ABS. IMMATURE GRANULOCYTES 0.02 0.00 - 0.03 x10'3/uL 06/04/2023 3:38 PM ELECTRO MECHANIC [facility] ABS. NUCLEATED RBC'S 0.00 0.00 x10'3/uL 06/04/2023 3:38 PM ELECTRO MECHANIC [facility] 06/04/2023 3:18 PM ELECTRO MECHANIC Roldan Rader MD LABORATORY Final Result Performing Organization Address City/[facility]/ZIP Co de Phone Number [address] [address], * MRSA SCREENING (06/04/2023 3:13 PM ELECTRO MECHANIC) SOURCE RESPIRATORY, NOSE 06/04/2023 3:02 PM ELECTRO MECHANIC [facility] MRSA BY PCR NASAL METHICILLIN RESISTANT STAPH AUREUS NOT DETECTED METHICILLIN RESISTANT STAPH AUREUS NOT DETECTED 06/06/2023 11:07 AM ELECTRO MECHANIC [facility] NASAL STRUCTURE / Unknown 06/04/2023 3:13 PM ELECTRO MECHANIC Roldan Rader MD MICROBIOLOGY - GENERAL ORDERAB LES Final Result [facility] [address] [place] [address], [id number] [address] [address], documented in this encounter Visit Diagnoses Diagnosis Pre-op evaluation- Primary Preoperative examination, unspecified Primary osteoarthritis of left hip Primary localized osteoarthrosis, pelvic region and thigh Chronic left hip pain Pain in joint, pelvic region and thigh documented in this encounter Care Teams Uncrater Relationship Specialty Start Date End Date Asif Coto DO [address] [place] [address] PCP - General FAMILY PRACTICE 09/29/21 documented as of this encounter
--- OUTSIDE RECORDS SUMMARY | 2024-04-23 21:37 | XMS_ITS | Encounter Summary ---
Author Organization [facility] Address [address] [place] [address]. [place] [address] [place] [address] Care Team Providers Care Grape Crusher Name Role Phone MushtaqAsif hanson Primary Care Provider [phone] Encounter Details Date Type Department Care Team (Late st Contact Info) Description 06/28/2023 Orders Only [facility] [address] [place] [address], [facility] [address] [place] [address] Roldan Rader MD [address] [place] [address] Social History Tobacco Use Types Packs/Day Years Used Date Smoking Tobacco: Former Cigarettes Smokeless Tobacco: Never Alcohol Use Standard Drinks/Week Comments Not Currently 0 (1 standard drink = 0.6 oz pur e alcohol) Occassionaly. [facility] Utilities Answer Date Recorded In the past 12 months has [employer], gas, oil, or water [email or web address] threatened to shut off services in your [...] declined 02/26/2023 How often do you attend restorationism or scientology serv ices? Patient declined 02/26/2023 Do you belong to any clubs o r organizations such as restorationism groups, unions, fraternal or athletic groups, or [...] Recorded Patient Health Questionnaire-2 Score 0 02/26/2023 [facility] - [...] Sexual Orientation Straight 02/26/2023 1: 40 PM EVENTS MANAGER documented as of this encounter Functional [...] Assessment Author Status No 06/21/2023 11:27 AM EVENTS MANAGER Yanira Castellanos RN Active documented as of this encounter Mental Status * Because of a physical, mental, or emotional condition, do you have serious difficulty concentrating, remembering, or making decisions? Answer Entry Date Author Status No 06/21/2023 11:27 AM Yanira Michel RN Active documented in this encounter Progress Notes * Roldan Rader MD - 06/28/2023 5:24 PM CDT A user error has davina documented in this encounter Plan of Treatment Upcoming Encounters Date Type Department Care Team (Late st Contact Info) Description 04/29/2024 1:45 PM EVENTS MANAGER Office Visit [address] [address] Sujatha Solis, [facility]-[address] [place] [address] documented as of this encounter Visit Diagnoses Diagnosis Cellulitis of buttock- Primary Cellulitis and abscess of buttock documented in this encounter Care Teams Grape Crusher Relationship Specialty Start Date End Date Asif Coto DO [address] [place] [address] PCP - General FAMILY PRACTICE 09/29/21 documented as of this encounter
--- OUTSIDE RECORDS SUMMARY | 2024-04-23 21:37 | XMS_ITS | Encounter Summary ---
Author Organization [facility] Address [address] [place] [address]. [place] [address] [place] [address] Care Team Providers Care Lpn Name Role Phone Nnamdi Asif GANDARA Primary Care Provider [phone] Reason for Visit * Reason Comments Postop Followup DOS:06/21/2023-left total hip arthroplasty Encounter Details Date Type Department Care Team (Latest Contact Info) Description 06/25/2023 2:30 PM CDT Office Visit [facility] [place] [address] Candida Padron PA [address] [place] [address] Postop Followup (DOS:06/21/2023-left total hip arthroplasty) Social History Tobacco Use Types Packs/Day Years Used Date Smoking Tobacco: Former Cigarettes Smokeless Tobacco: Never Tobacco Cessation:Counseling Given: Not Answered Alcohol Use Standard Drinks/Week Comments Not Currently 0 (1 standard drink = 0.6 oz pur e alcohol) Occassionaly. [facility] Utilities Answer Date Recorded In the past 12 months has e [employer], gas, oil, or water [employer] threatened to shut off services in [...] declined 02/26/2023 How often do you attend roman catholic or hoahaoism serv ices? Patient declined 02/26/2023 Do you belong to any clubs o r organizations such as roman catholic groups, unions, fraternal or athletic groups, [...] Recorded Patient Health Questionnaire-2 Score 0 02/26/2023 [facility] - Occupational Stress [...] Orientation Straight 02/26/2023 1: 40 PM LEGAL TRANSCRIBER documented as of this encounter Last Filed Vital Signs Vital Sign Reading Time Taken Comments Blood Pressure - - Pulse - - Temperature - - Respiratory Rate - - Oxygen Saturation - - Inhaled Oxygen Concentration - - Weight 70.3 kg (155 lb) 06/25/2023 2:52 PM CDT Height 165.1 cm (5' 5 ) 06/25/2023 2:52 PM CDT Body Mass Index 25.79 06/25/2023 2:52 PM CDT documented in this encounter Functional [...] Progress Notes * Maylin Dougherty MA - 06/25/2023 2:30 PM CDT Donna is a 67-year-old female who presents for Postop Followup (DOS:06/21/2023-left total hip arthroplasty) Patient presents to clinic today for a wound post-op follow up of her LEFT total hip arthroplasty. Patient reports pain to her LEFT hip. She reports some numbness to her LEFT leg. Her skin is red andinflamed near her incision, she reports yellow drainage coming from her wound. She denies night pain. She takes Oxycodone for pain PRN. She does not use ice. She uses rolling walker to ambulate. She is retired. [x] Wound Management:Dressing change Removed PRINEO dressing with vasoline. At distal and proximal ends of dressing skin sloughed off with dressing during removal. Patient tolerated well. Provider aware and image obtained. New dressing applied (Aquacel Ag Surgical 3.5 in X 12 in). Performed by Reny Goldsmith RN Vitals: 06/25/23 1452 Weight: 70.3 kg (155 lb) Height: 1.651 [...] alternating nostrils until medical assistance becomes available [place]-3 Fatty Acids (FISH OIL) 500 MG capsule Take 1,000 mg by mouth daily. oxyCODONE-acetaminophen (PERCOCET) 5-325 MG tablet Take 1-2 tablets by mouth every 6 (six) hours asneeded for Pain. Indications: Acute Pain < 7 Day Supply OZEMPIC 1 mg/dose injection (PEN) Inject into [...] pain pump TOTAL KNEE ARTHROPLASTY Left 06/21/2023 Allergies 2-octylcyanoacrylate [cyanoacrylate] and Adhesive [vinyl] [x] Total Tnko-on-Mcca Assessment Time: 0-15 minutes Additional Contributory Factors NONE * DEON Desai - 06/25/2023 2:30 PM CDT Images from the original note were not included. Chief Complaint: Postop Followup (DOS:06/21/2023-left total hip arthroplasty) History of Present Illness: Donna Saunders is a 67-year-old female who presents to the office for Postop Followup (DOS:06/21/2023-left total hip arthroplasty) Patient presents to clinic today for a wound post-op follow up of her LEFT total hip arthroplasty. Patient reports pain to her LEFT hip. She reports some numbness to her LEFT leg. Her skin is red andinflamed near her incision, she reports yellow drainage coming from her wound. She denies night pain. She takes Oxycodone for pain PRN. She does not use ice. She uses rolling walker to ambulate. She is retired. [x] Wound Management:Dressing change Removed PRINEO dressing with vasoline. At distal and proximal ends of dressing skin sloughed off with dressing during removal. Patient tolerated well. Provider aware and image obtained. New dressing applied (Aquacel Ag Surgical 3.5 in X 12 in). 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 01/31/2023 Added automatically from request for surgery [id number] Past Surgical History: Procedure Laterality Date BACK SURGERY x3 FOOT SURGERY Left 07/27/2022 FOOT SURGERY Right 2001 HIP ARTHROPLASTY Right 02/26/2023 KNEE ARTHROPLASTY Right 04/01/2014 PUMP INFILTRATION Left pain pump TOTAL KNEE ARTHROPLASTY Left 06/21/2023 Family History [...] min Stress: No Stress Concern Present (02/26/2023) [facility] - Occupational Stress Questionnaire Feeling of Stress : Not at all Social Connections: Unknown (02/26/2023) Social Connection and Isolation Panel [NHANES] Frequency of Communication with Friends and Family: Patient declined Frequency of Social Gatherings with Friends and Family: Patient declined Attends Yazdanism Services: Patient declined Active Member of Clubs [...] mouth nightly at bedtime., Disp: , Rfl: [facility] Natural Products (OSTEO BI-FLEX ADV TRIPLE ST) Tab, Take 1 tablet by mouth 2 (two) times a day., Disp: , Rfl: naloxone (NARCAN) 4 MG/0.1ML nasal spray, 1 spray by Nasal route as needed for Opioid reversal. mayrepeat every 2 to 3 minutes in alternating nostrils until medical assistance becomes available, Disp: 1 each, Rfl: PRN [place]-3 Fatty Acids (FISH OIL) 500 MG capsule, Take 1,000 mg by mouth daily., Disp: , Rfl: oxyCODONE-acetaminophen (PERCOCET) 5-325 MG tablet, Take 1-2 tablets by mouth every 6 (six) hours as needed for Pain. Indications: Acute Pain < 7 Day Supply, Disp: 30 tablet, Rfl: 0 OZEMPIC 1 mg/dose injection (PEN), Inject into the skin once a week., Disp: , Rfl: pantoprazole EC (PROTONIX) 40 MG tablet, Take 1 tablet (40 mg total) by mouth daily., Disp: , Rfl: TRUE METRI[employer] BLOOD GLUCOSE TEST test strip, , Disp: , Rfl: [employer] Lancets 33G [facility], , Disp: , Rfl: vitamin D3 (CHOLECALCIFEROL) 25 mcg tablet, Take 1 tablet (25 mcg total) by mouth daily., Disp: , Rfl: Review of patient's allergies indicates: Allergen Reactions 2-Octylcyanoacrylate [Cyanoacrylate] Hives, Rash and Swelling Dermabond Adhesive [Vinyl] Rash and Swelling Possibly Dermabond adhesive, used after surgery Objective: Body mass index is 25.79 kg/m??. Last Recorded Weight 06/25/23 1452 Weight: 70.3 kg (155 lb) Physical exam: Constitutional: Alert and in no acute distress. Neurological: The patient was oriented to person, place, and time. Eyes: The sclera and conjunctiva were normal ENT: Hearing was normal. Neck: The appearance of the neck was normal. Cardiovascular: Normal pulses. Pulmonary: No respiratory distress. Skin: No injuries or skin lesion. Musculoskeletal: Examination of the left hip demonstrated Prineo dressing intact with surrounding erythema in light red irregular shaped patches extending past dressing perimeters by 1 inch with patch of erythema ending at the groin. Skin to left hip after Prineo was removed demonstrates two 1 cm x2 cm areas of superficial skin sloughing at the distal edge and medial proximal edge of the wound. Results: Wound to the left hip with surrounding dermatitis Assessment: Encounter Diagnose(s) ICD-10-CM SNOMED CT(R) 1. Aftercare following left hip joint replacement surgery Z47.1 PATIENT ENCOUNTER STATUS Z96.642 2. 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 She did not experience a reaction to her Aquacel dressing from her right total hip arthroplasty 3 months ago. Decision was made to remove Prineo dressing and apply new Aquacel dressing which was performed in officetoday. She was instructed to use topical hydrocortisone cream over exposed skin and to keep the Aquacel dressing intact. She was also provided with a prescription for hydroxyzine for itching. She will follow-up as scheduled for her first post- operative appointment next week. Follow up: Return in about 1 week (around 07/02/2023) for as scheduled, Post-Op. 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
--- OUTSIDE RECORDS SUMMARY | 2024-04-23 21:37 | XMS_ITS | Encounter Summary ---
Author Organization [facility] Address [address] [place] [address]. [place] [address] [place] [address] Care Team Providers Care Foam Rubber Fabricator Name Role Phone Asif Coto DO Primary Care Provider [phone] Reason for Visit * Reason Onset Date Comments Question 06/14/2023 Encounter Details Date Type Department Care Team (Late st Contact Info) Description 06/14/2023 Telephone [facility] [place] [id number] [facility], [facility] [address] [place] [address] Roldan Rader MD [address] [place] [address] Question Social History Tobacco Use Types Packs/Day Years Used Date Smoking Tobacco: Former Cigarettes Smokeless Tobacco: Never Alcohol Use Standard Drinks/Week Comments Not Currently 0 (1 standard drink = 0.6 oz pur e alcohol) [facility] Utilities Answer Date Recorded In the past 12 months has e [employer], gas, oil, or water [employer] threatened to shut off services in your [...] declined 02/26/2023 How often do you attend nondenominational or religion serv ices? Patient declined 02/26/2023 Do you belong to any clubs o r organizations such as nondenominational groups, unions, fraternal or athletic groups, or [...] Recorded Patient Health Questionnaire-2 Score 0 02/26/2023 [facility] Occup[facility] ional [facility] - Occupational [...] Sexual Orientation Straight 02/26/2023 1: 40 PM VOCATIONAL AUTO BODY INSTRUCTOR documented as of this encounter Functional Status * Are you deaf or do you have serious difficulty hearing Answer Date of Assessment Author Status No 02/26/2023 1:46 PM VOCATIONAL AUTO BODY INSTRUCTOR Casie Mcduffie RN Active * Are you blind or do you have serious difficulty seeing, even when wearing glasses? Answer Date of Assessment Author Status No 02/26/2023 1:46 PM VOCATIONAL AUTO BODY INSTRUCTOR Casie Mcduffie RN Active * Do you have serious difficulty walking or climbing stairs? Answer Date of Assessment Author Status No 02/26/2023 1:46 PM VOCATIONAL AUTO BODY INSTRUCTOR Casie Mcduffie RN Active * Do you have difficulty dressing or bathing? Answer Date of Assessment Author Status No 02/26/2023 1:46 PM VOCATIONAL AUTO BODY INSTRUCTOR Casie Mcduffie RN Active * Because of a physical, mental, or emotional condition, do you have difficulty doing errands alone such as visiting a doctor's office or shopping? Answer Date of Assessment Author Status No 02/26/2023 1:46 PM VOCATIONAL AUTO BODY INSTRUCTOR Casie Mcduffie RN Active documented as of this encounter Mental Status * Because of a physical, mental, or emotional condition, do you have serious difficulty concentrating, remembering, or making decisions? Answer Entry Date Author Status No 02/26/2023 1:46 PM VOCATIONAL AUTO BODY INSTRUCTOR Casie Mcduffie RN Active documented in this encounter Progress Notes * Trinity Griffin RN - 06/14/2023 10:13 AM CST Contacted patient about questions she had regarding IV insertion on the day of surgery. States thatlast surgery they stuck her several times and it was very painful. Asked about EMLA cream that could be applied this time prior to insertion. Contacted pharmacy and the EMLA cream is carried in stock. Order placed at this time for apply EMLA cream to 2-3 areas on skin day of surgery Patient is aware of the order was placed to apply on the day of surgery 30-60 minutes prior to IV insertion. No further questions noted. TIONAL AUTO BODY INSTRUCTOR documented in this encounter Plan of Treatment Upcoming Encounters Date Type Department Care Team (Late st Contact Info) Description 04/29/2024 1:45 PM VOCATIONAL AUTO BODY INSTRUCTOR Office Visit [facility] [address] [address] Sujatha Solis, [facility]- [address] [place] [address] documented as of this encounter Visit Diagnoses Not on filedocumented in this encounter Care Teams Foam Rubber Fabricator Relationship Specialty Start Date End Date Asif Coto DO [address] [place] [address] PCP - General FAMILY PRACTICE 09/29/21 documented as of this encounter
--- OUTSIDE RECORDS SUMMARY | 2024-04-23 21:37 | XMS_ITS | Encounter Summary ---
Author Organization [facility] Address [address] [place] [address]. [place] [address] [place] [address] Care Team Providers Care Supervisor Drilling And Shooting Name Role Phone Asif Coto DO Primary Care Provider [phone] Reason for Visit * Reason Onset Date Comments Therapy Plans 06/06/2023 Encounter Details Date Type Department Care Team (Late st Contact Info) Description 06/06/2023 Telephone [facility] [address], [facility] [address] [place] [address] Roldan Rader MD [address] [place] [address] Therapy Plans Social History Tobacco Use Types Packs/Day Years Used Date Smoking Tobacco: Former Cigarettes Smokeless Tobacco: Never Alcohol Use Standard Drinks/Week Comments Not Currently 0 (1 standard drink = 0.6 oz pur e alcohol) [facility] Utilities Answer Date Recorded In the past 12 months has e [employer], gas, oil, or water [employer] threatened to shut off services in your [...] How often do you attend taoism or yarsani serv ices? Patient declined 02/26/2023 [...] Recorded Patient Health Questionnaire-2 Score 0 02/26/2023 [facility] Occupat ional Health - Occupational Stress [...] Sexual Orientation Straight 02/26/2023 1: 40 PM SEAM RUBBING MACHINE OPERATOR documented as of this encounter Functional Status * Are you deaf or do you have serious difficulty hearing Answer Date of Assessment Author Status No 02/26/2023 1:46 PM SEAM RUBBING MACHINE OPERATOR Casie Mcduffie RN Active * Are you blind or do you have serious difficulty seeing, even when wearing glasses? Answer Date of Assessment Author Status No 02/26/2023 1:46 PM SEAM RUBBING MACHINE OPERATOR Casie Mcduffie RN Active * Do you have serious difficulty walking or climbing stairs? Answer Date of Assessment Author Status No 02/26/2023 1:46 PM SEAM RUBBING MACHINE OPERATOR Casie Mcduffie RN Active * Do you have difficulty dressing or bathing? Answer Date of Assessment Author Status No 02/26/2023 1:46 PM SEAM RUBBING MACHINE OPERATOR Casie Mcduffie RN Active * Because of a physical, mental, or emotional condition, do you have difficulty doing errands alone such as visiting a doctor's office or shopping? Answer Date of Assessment Author Status No 02/26/2023 1:46 PM SEAM RUBBING MACHINE OPERATOR Casie Mcduffie RN Active documented as of this encounter Mental Status * Because of a physical, mental, or emotional condition, do you have serious difficulty concentrating, remembering, or making decisions? Answer Entry Date Author Status No 02/26/2023 1:46 PM SEAM RUBBING MACHINE OPERATOR Casie Mcduffie RN Active documented in this encounter Progress Notes * KATIE Rees - 06/06/2023 10:08 AM CST ----- Message from Adamaris Waddell CNA sent at 06/06/2023 9:02 AM SEAM RUBBING MACHINE OPERATOR ----- [facility] has called her several times to scheduled her no answer. RUBBING MACHINE OPERATOR documented in this encounter Plan of Treatment Upcoming Encounters Date Type Department Care Team (Late st Contact Info) Description 04/29/2024 1:45 PM SEAM RUBBING MACHINE OPERATOR [facility] [place] [address] [address] Sujatha Solis, [facility]- [address] [place] [address] [place] [address] documented as of this encounter Visit Diagnoses Not on filedocumented in this encounter Care Teams Supervisor Drilling And Shooting Relationship Specialty Start Date End Date Asif Coto DO [address] [place] [address] PCP - General FAMILY PRACTICE 09/29/21 documented as of this encounter
--- OUTSIDE RECORDS SUMMARY | 2024-04-23 21:37 | XMS_ITS | Encounter Summary ---
Author Organization [facility] Address [address] [place] [address]. [place] [address] [place] [address] Care Team Providers Care Any Commodity Buyer Name Role Phone NnamdiAsif Primary Care Provider [phone] Encounter Details Date Type Department Care Team (Latest Contact Info) Description 05/31/2023 3:51 PM MANAGER DIABETES - 05/31/2023 11:59 PM [facility] Encounter [facility] [address] [place] [address] Roldan Rader MD [address] [place] [address] Discharge Disposition: Home or Self Care (Routine Discharge) Social History Tobacco Use Types Packs/Day Years Used Date Smoking Tobacco: Former Cigarettes Smokeless Tobacco: Never Alcohol Use Standard Drinks/Week Comments Not Currently 0 (1 standard drink = 0.6 oz pur e alcohol) [facility] Utilities Answer Date Recorded In the past 12 months has e [employer], gas, oil, or water [employer] threatened to shut off services in your [...] declined 02/26/2023 How often do you attend baptist or quaker serv ices? Patient declined 02/26/2023 Do you belong to any clubs o r organizations such as baptist groups, unions, fraternal or athletic groups, or [...] Patient Health Questionnaire-2 Score 0 02/26/2023 [facility] of Occupat ional Health - [...] place to sleep or slept in a mcc (including now)? No 02/26/2023 Comments No Sex and Gender Information Value Date Recorded Sex Assigned at Female 08/07/2022 4:17 PM CDT Legal Sex Female 8:54 PM CDT Gender Identity Female 08/07/2022 4:17 PM CDT Sexual Orientation Straight 02/26/2023 1: 40 PM MANAGER DIABETES documented as of this encounter Functional Status * Are you deaf or do you have serious difficulty hearing Answer Date of Assessment Author Status No 02/26/2023 1:46 PM MANAGER DIABETES Casie Mcduffie RN Active * Are you blind or do you have serious difficulty seeing, even when wearing glasses? Answer Date of Assessment Author Status No 02/26/2023 1:46 PM MANAGER DIABETES Casie Mcduffie RN Active * Do you have serious difficulty walking or climbing stairs? Answer Date of Assessment Author Status No 02/26/2023 1:46 PM MANAGER DIABETES Casie Mcduffie RN Active * Do you have difficulty dressing or bathing? Answer Date of Assessment Author Status No 02/26/2023 1:46 PM MANAGER DIABETES Casie Mcduffie RN Active * Because of [...] Stratton RN Active documented in this encounter Medications [...] total) by mouth nightly at bedtime. 05/13/2021 [employer] (OSTEO BI-FLEX ADV TRIPLE ST) Tab Take 1 tablet by mouth 2 (two) times a day. Marshall-3 Fatty Acids (FISH OIL) 500 MG capsule [...] becomes available 1 each 02/27/2023 02/27/20 24 traZODone 50 MG tablet Take 1 tablet (50 mg total) by mouth nightly at bedtime. 05/12/2021 06/21/19 24 documented as of this encounter Plan of Treatment Upcoming Encounters Date Type Department Care Team (Late st Contact Info) Description 04/29/2024 1:45 PM MANAGER DIABETES Office Visit [facility] [address] [place] [address] Sujatha Solis, [employer]- [address] [facility] [place] [address] documented as of this encounter Procedures Procedure Name Priority Date/Time Associated Diagnosis Comments XR HIP LT 1V Routine 05/31/2023 4:29 PM MANAGER DIABETES Left hip pain documented in this encounter Results * XR HIP LT 1V (05/31/2023 4:29 PM MANAGER DIABETES) Anatomical Region Laterality Modality Hip Radiographic Chanel ging 06/01/2023 2:25 PM MANAGER DIABETES Impressions 06/01/2023 2:32 PM MANAGER DIABETES IMPRESSION: No acute findings. Degenerative changes as described. Ordered By: ROLDAN RADER Interpreted By: Abimael Shannon MD, 06/01/2023 2:25 PM Narrative 06/01/2023 2:32 PM MANAGER DIABETES Examination: Left hip. Exam time: 1532 hours. Clinical history: Pain. Comparison: Pelvis and right hip, 04/17/2023. Technique: Weightbearing frog lateral view. Findings: No fracture, dislocation or other acute bony abnormality is identified. Severe degenerative changes are again evident manifested by joint space narrowing, subchondral sclerosis and acetabular osteophyte formation. 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 No other significant bone or joint abnormality is noted. No acute soft tissue abnormality. Procedure Note Abimael Shannon MD - 06/01/2023 Examination: Left hip. Exam time: 1532 hours. Clinical history: Pain. Comparison: Pelvis and right hip, 04/17/2023. Technique: Weightbearing frog lateral view. Findings: No fracture, dislocation or other acute bony abnormality isidentified. Severe degenerative changes are again evident manifested byjoint space narrowing, subchondral sclerosis and acetabular osteophyteformation. The contour of the femoral head/neck junction suggests probablecam-type impingement. No other significant bone or joint abnormality isnoted. No acute soft tissue abnormality. IMPRESSION: No acute findings. Degenerative changes as described. Ordered By: ROLDAN RADER Interpreted By: Abimael Shannon MD, 06/01/2023 2:25 PM us Roldan Rader MD GENERAL IMAGING Final Result documented in this encounter Visit Diagnoses Diagnosis Left hip pain Pain in joint, pelvic region and thigh documented in this encounter Care Teams Any Commodity Buyer Relationship Specialty Start Date End Date Asif Coto DO [address] [place] [address] PCP - General FAMILY PRACTICE 09/29/21 documented as of this encounter
--- OUTSIDE RECORDS SUMMARY | 2024-04-23 21:37 | XMS_ITS | Encounter Summary ---
Author Organization [facility] Address [address] [place] [address]. 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 Procedures TOTAL HIP ARTHROPLASTY LEFT total hip arthroplasty ; ; Depuy notified, Labs to be done at [place], other side done 02/26/23 Roldan Rader MD [address] [place] [address] Phone: tel: fax: Referral ID Status Reason Start Date Expiration Date Visits Re quested Visits Authorized [id number] 1 1 Encounter Details Date Type Department Care Team (Late st Contact Info) Description 06/21/2023 7:28 AM MANAGER LPN Anesthesia Event [address] [place] [address] Albaro Estrada MD [address] [place] [address], [address] [place] [address] Madeline Long CRNA [facility] [place] [address] Anesthesia Record Procedure Summary Procedure Name Responsible Anesthesiologist Anesthesia Start Time Anesthesia Stop Time LEFT total hip arthroplasty (Left: Hip) Albaro Estrada MD 06/21/23 0706/21/23 0952 Events Date Time Event Comment 06/21/2023 0715 0719 Block Start 07 Block Stop 07 AN CLINICAL APPEALS SPECIALIST Prepped 723 AN Anesthesia Prepped 07 An Start Patient ID and consent checked and patient reassessed. 727 An Start Data 0728 AN Immediate Reassess The pa tient was reevaluated immediately before sedation or regional anesthesia. 07 Face Mask Applied 0737 An Block 0744 Anesthesia Ready 0948 an stop data 0951 Post Anesthetic Care Handoff I completed my handoff to the receiving nurse during which we: 1. Identified the patient 2. Identified the responsible provider 3. Reviewed the pertinent medical history 4. Discussed the surgical course 5. Reviewed intra-op anesthesia management and issues during anesthesia 6. Set expectations for post-procedure period 7. Allowed opportunity for questions and acknowledgement of understanding. 951 An Stop Meds Name Total midazolam 2 mg/2 mL injection 2.5 mg fentaNYL (SUBLIMAZE) 100 mcg/2 mL inject ion 100 mcg dexamethasone (DECADRON) PF 10 mg/mL inj ection 5 mg dexamethasone (DECADRON) PF 10 mg/mL inj ection 5 mg ROpivacaine (NAROPIN) 1% injection 40 mL ketamine 50 mg/mL injection 50 mg propofol (DIPRIVAN) 500 mg/50 mL injecti on 559.24 mg phenylephrine (ZENON-SYNEPHRIN E) 10 mg in sodium chloride 0.9 % 250 mL infusion 2,270 mcg ondansetron (ZOFRAN) 4 mg/2 mL injection 4 mg ceFAZolin (ANCEF) 2 g in sodium chloride 0.9 % 50 mL IVPB 2 g tranexamic acid (CYKLOKAPRON) injection 1,000 mg 1,000 mg morphine (PF) (ASTRAMORPH) 1 mg/1mL inje ction 0.15 mg lactated ringers infusion 1,000 mL * Agents Name O2 Ancillary O2 * Blood No blood administrations on file. Lines, Drains, and Airways Type Details Placement Removal Peripheral IV Placement Date: 06/21/23; Placement Time: 711; Placed Outside of This Facility?: No; Size: 22 G; Orientation: Right; Location: Hand; Site Prep: Chlorhexidine; Local Anesthetic: None; Inserted By: Georges Long CRNA; Insertion attempts: 2; Ultrasound-guided Placement?: No; Patient Tolerance: Tolerated well; Removal Date: 06/22/23; Removal Time: 1352; Removal Reason: Patient Discharged 06/21/23 0712 by Cynthia Kennedy RN 06/22/23 1352 by Reshma Cardozo RN Johnson Catheter 06/21/23; 0755; No; I & O - Strict I&O or Critically ill requiring I&O Q1-2hrs; 1; Hand hygiene performed, Catheter inserted using aseptic technique, Drainage bag secured below level of bladder, Site cleansed with sterile antiseptic, Johnson care post catheter insertion, Closed system maintained, Sterile gloves, drape and lubricant used; 18 Fr.; Per Order 06/21/23 0755 by Amee Vásquez RN 06/22/23 0628 by Elena Gonzales RN Surgical/Incision 06/21/23; 0937; Surgical Wound; Hip; Left; SUTURES, DERMABOND PRINEO; 06/22/23; 1652 06/21/23 0937 by Amee Vásquez RN 06/22/23 1652 by Automatic Discharge Provider documented in this encounter Social History Tobacco Use Types Packs/Day Years Used Date Smoking Tobacco: Former Cigarettes Smokeless Tobacco: Never Alcohol Use Standard Drinks/Week Comments Not Currently 0 (1 standard drink = 0.6 oz pur e alcohol) Occassionaly. [facility] Sample6ities Answer Date Recorded In the past 12 months has [facility] [employer], oil, or water [employer] threatened to shut off services in your [...] declined 02/26/2023 How often do you attend episcopal or faith serv ices? Patient declined 02/26/2023 Do you belong to any clubs o r organizations such as episcopal groups, unions, fraternal or athletic groups, or [...] Recorded Patient Health Questionnaire-2 Score 0 02/26/2023 [facility] - [...] Orientation Straight 02/26/2023 1: 40 PM MANAGER LPN documented as of this encounter Functional Status * Question Answer Date of Assessment Author Status Do you have serious difficulty walking or climbing stairs? No 06/21/2023 11:27 AM Yanira Michel RN Ac tive * Question Answer Date of Assessment Author Status Do you have difficulty dressing or bathing? No 06/21/2023 11:27 AM MANAGER LPN Yanira Castellanos R N Active Because of a physical, mental, or emotional condition, do you have difficulty doing errands alone such as visiting a doctor's office or shopping? No 06/21/2023 11:27 AM Yanira Michel RN Act stella * Are you deaf or do you have serious difficulty hearing Answer Date of Assessment Author Status No 02/26/2023 1:46 PM Casie Stratton RN Active * Are you blind or do you have serious difficulty seeing, even when wearing glasses? Answer Date of Assessment Author Status No 02/26/2023 1:46 PM Casie Stratton RN Active * Do you have serious difficulty walking or climbing stairs? Answer Date of Assessment Author Status No 02/26/2023 1:46 PM Casie Stratton RN Active * Do you have difficulty dressing or bathing? Answer Date of Assessment Author Status No 02/26/2023 1:46 PM Casie Stratton RN Active * Because of a physical, [...] Michel RN Active documented in this encounter OR Notes * Anesthesia Postprocedure Evaluation - Albaro Estrada MD - 06/22/2023 7:46 AM CST Anesthesia Post-op Note Donna A Chip Procedure(s): LEFT total hip arthroplasty Depuy notified, Labs to be done at [place], other side done 02/26/23 (Left: Hip) Anesthesia type: spinal Vitals: 06/22/23 0415 BP: 100/73 Vitals: 06/22/23 0415 Pulse: 86 Vitals: 06/22/235 Resp: 18 Vitals: 06/22/235 Temp: 36 ??C Vitals: 06/22/23414 SpO2: 99% Patient Location: Inpatient Unit Level of Consciousness: awake and alert Pain Management: adequate analgesia Airway Patency: patent Respiratory Status: acceptable Cardiovascular Status: acceptable Post-Op Nausea: none Postoperative Hydration: euvolemic Comments: POD 1. Restingin bed. Some discomfort last night. No evident anesthetic concerns. Plan per ortho. There were no known notable events for this encounter. GER LPN * Anesthesia Postprocedure Evaluation - Madeline Long CRNA - 06/21/2023 11:11 AM CST Anesthesia Post-op Note Donna A Chip Procedure(s): LEFT total hip arthroplasty Depuy notified, Labs to be done at [place], other side done 02/26/23 (Left: Hip) Anesthesia type: spinal Vitals: 06/21/23 1053 BP: 113/62 Vitals: 06/21/23 1054 Pulse: 73 Vitals: 06/21/23 1054 Resp: 18 Vitals: 06/21/23 1054 Temp: 35.2 ??C Vitals: 06/21/23 1054 SpO2: 98% Patient Location: PACU Level of Consciousness: awake, alert and oriented Pain Management: pain being treated or addressed Airway Patency: patent Respiratory Status: spontaneous ventilation and acceptable Cardiovascular Status: acceptable, stable and hemodynamically stable Post-Op Nausea: none Postoperative Hydration: euvolemic There were no known notable events for this encounter. GER LPN * Anesthesia Procedure Notes - Madeline Long CRNA - 06/21/2023 7:46 AM MANAGER LPN Associated Order(s): Spinal Block Spinal Block Patient location during procedure: OR Start time: 06/21/2023 7:33 AM End time: 06/21/2023 7:37 AM Reason for block: primary anesthetic Staffing Performed: CLINICAL APPEALS SPECIALIST Resident/CLINICAL APPEALS SPECIALIST: Madeline Long CRNA Performed by: Madeline Long CRNA Authorized by: Madeline Long CRNA Preanesthetic Checklist Completed: patient identified, IV checked, site marked, risks and benefits discussed, surgical consent, monitors and equipment checked, pre-op evaluation and timeout performed Spinal Block Patient position: sitting Prep: Betadine Sterility prep: cap, drape, gloves, gown, hand hygiene and mask Sedation level: moderate sedation Patient monitoring: blood pressure, continuous pulse oximetry, ETCO2 and heart rate Approach: midline Location: L3-4 Needle Needle type: pencil-tip Needle gauge: 25 G Needle length: 3.5 in Catheter type: end hole Assessment Sensory level: T4 Number of attempts: 1 Procedure assessment: patient tolerated procedure well with no immediate complications Additional Notes L3/4 SAB placed: sitting position. prep, drape. 3ml 1% lido local. Positive CSF with #25g pencan needle. Injected 2 mls of 0.75% bupivacaine with dextrose as noted. Patient tolerated procedure well GER LPN * Anesthesia Procedure Notes - Madeline Long CRNA - 06/21/2023 7:25 AM MANAGER LPN Associated Order(s): Peripheral Block Peripheral Block Performed by: Madeline Long CRNA Authorized by: Madeline Long CRNA Procedure Start: 06/21/2023 7:19 AM Procedure Stop: 06/21/2023 7:22 AM Patient Location: Pre-op Reason for Block: at surgeon's request and post-op pain management patient identified, IV checked, site marked, risks and benefits discussed, consent, monitors and equipment checked, pre-op evaluation and timeout performed Patient Position: Supine Monitoring: Blood pressure, continuous pulse ox, ECG/EKG and heart rate Prep: ChloraPrep Draping: Sterile technique maintained Block Type: Fascia Iliaca Laterality: Left Injection Technique: Single-shot Technique: ultrasound guided Needle Gauge: 22 G Needle Length: 4 in (3 in) Needle Localization: Anatomical landmarks and ultrasound guidance Test Dose: Negative Local Volume: 40 Insertion Attempts: 1 Injection Assessment/ Attestation: Incremental injection, negative aspiration for heme, no apparentcomplications, no paresthesia on injection, paresthesia absent, ultrasound image saved and well tolerated Heart Rate Change: No Risks explained: difficult placement, may be ineffective, bleeding, infection, nerve damage. Benefits explained to patient: may lower sedation and/or general anesthetic dose, possibly less pain afterprocedure.Timeout performed including patients name, date, and laterality. Patient participated in the timeout. Antiseptic prep. Sterile probe cover applied. Identified ASIS. Scrolled medially to identify confluence of sartorius muscle and internal oblique at bow tie juncture. Needle placed under ultrasound guidance to dissect IOM from iliacus. Injectedlocal as indicated with multiple negative aspirations. Patient tolerated procedure well. GER LPN * Anesthesia Preprocedure Evaluation - Albaro Estrada MD - 06/11/2023 1:48 PM CST Anesthesia ROS/MED History Reviewed: Anesthesia history , Medications Pre-Anesthetic State: alert, awake and responds appropriately Pulmonary Cardiovascular (+) hypertension, (well controlled), hyperlipidemia Neuro/Psych Comments: Muscle movements ? Tardive dyskinesisa?? Hx back problems Pain pump left side of abdomen Substance Use (+) alcohol use, weekly, 5-6 GI/Hepatic/Renal Endo/Other (+) diabetes mellitus, (well controlled), (type 2), (Using Oral hypoglycemic), hypothyroidism GENERAL COMMENTS BMI 25.8 Htn NIDDM Hypothyroid Lipids Amlodipine Lisinopril Metformin Levothyroxine Ozempic Pain pump x 10 yr Years of pain/psych meds SODIUM S/P/B: 141 06/04/23 15:18 POTASSIUM S/P/B: 4.0 06/04/23 15:18 CHLORIDE S/P/B: 104 06/04/23 15:18 CO2: 28.0 06/04/23 15:18 ANION GAP: 9.0 06/04/23 15:18 BUN: 12 06/04/23 15:18 CREATININE S/P/B: 0.95 06/04/23 15:18 GLUCOSE: 85 06/04/23 15:18 HGB: 14.0 06/04/23 15:18 HCT: 43.0 06/04/23 15:18 PLT: 347 06/04/23 15:18 SINUS RHYTHM NPO Status: Physical Evaluation Airway Mallampati: II Dental (upper dentures) Pulmonary Pulmonary exam normal Cardiovascular Cardiovascular exam normal STOP-Bang Assessment: Anesthesia Plan ASA 3 Intravenous Induction Anesthesia type: spinal Plan for Post-op Pain Plan: block Left fasica lataa block for assistance with postoperative pain relief Informed Consent Anesthetic plan and risks discussed with patient of whom consent was obtained. Use of blood products discussed with patient of whom consent was obtained. . GER LPN GER LPN GER LPN documented in this encounter Plan of Treatment Upcoming Encounters Date Type Department Care Team (Late st Contact Info) Description 04/29/2024 1:45 PM MANAGER LPN Office Visit [facility] [address] [facility] [address] [place] [address] Sujatha Solis, [employer]- [address] [place] [address] documented as of this encounter Procedures Procedure Name Priority Date/Time Associated Diagnosis Comments AN SPINAL Routine 06/21/2023 7:33 AM MANAGER LPN CA AN PERIPHERAL BLOCK SINGLE-SHOT Routine 06/21/2023 7:25 AM MANAGER LPN documented in this encounter Results * Spinal Block (06/21/2023 7:33 AM MANAGER LPN) Narrative Madeline Long CRNA - 06/21/2023 7:33 AM MANAGER LPN Madeline Long CRNA ? 06/21/2023 ??7:47 AM Spinal Block Patient location during procedure: OR Start time: 06/21/2023 7:33 AM End time: 06/21/2023 7:37 AM Reason for block: primary anesthetic Staffing Performed: CLINICAL APPEALS SPECIALIST Resident/CLINICAL APPEALS SPECIALIST: Madeline Long CRNA Performed by: Madeline Long CRNA Authorized by: Madeline Long CRNA ?? Preanesthetic Checklist Completed: patient identified, IV checked, site marked, risks and benefits discussed, surgical consent, monitors and equipment checked, pre-op evaluation and timeout performed Spinal Block Patient position: sitting Prep: Betadine Sterility prep: cap, drape, gloves, gown, hand hygiene and mask Sedation level: moderate sedation Patient monitoring: blood pressure, continuous pulse oximetry, ETCO2 and heart rate Approach: midline Location: L3-4 Needle Needle type: pencil-tip Needle gauge: 25 G Needle length: 3.5 in Catheter type: end hole Assessment Sensory level: T4 Number of attempts: 1 Procedure assessment: patient tolerated procedure well with no immediate complications Additional Notes L3/4 SAB placed: sitting position. prep, drape. 3ml 1% lido local. Positive CSF with #25g pencan needle. Injected 2 mls of 0.75% bupivacaine with dextrose as noted. Patient tolerated procedure well us Madeline Long CRNA [place] ANESTHESIA Final Result * CA AN PERIPHERAL BLOCK SINGLE-SHOT (06/21/2023 7:25 AM MANAGER LPN) Narrative Madeline Long CRNA - 06/21/2023 7:25 AM MANAGER LPN Madeline Long CRNA ? 06/21/2023 ??7:26 AM Peripheral Block Performed by: Madeline Long CRNA Authorized by: Madeline Long CRNA ?? Procedure Start: ??06/21/2023 7:19 AM Procedure Stop: ??06/21/2023 7:22 AM Patient Location: ??Pre-op Reason for Block: at surgeon's request and post-op pain management ?? patient identified, IV checked, site marked, risks and benefits discussed, consent, monitors and equipment checked, pre-op evaluation and timeout performed ?? Patient Position: ??Supine Monitoring: ??Blood pressure, continuous pulse ox, ECG/EKG and heart rate Prep: ChloraPrep ?? Draping: ??Sterile technique maintained Block Type: ??Fascia Iliaca Laterality: ??Left Injection Technique: ??Single-shot Technique: ultrasound guided ?? Needle Gauge: ??22 G Needle Length: ??4 in (3 in) Needle Localization: ??Anatomical landmarks and ultrasound guidance Test Dose: ??Negative Local Volume: ??40 Insertion Attempts: ??1 Injection Assessment/ Attestation: ??Incremental injection, negative aspiration for heme, no apparent complications, no paresthesia on injection, paresthesia absent, ultrasound image saved and well tolerated Heart Rate Change: No ?? Risks explained: difficult placement, may be ineffective, bleeding, infection, nerve damage. Benefits explained to patient: may lower sedation and/or general anesthetic dose, possibly less pain after procedure.Timeout performed including patients name, date, and laterality. Patient participated in the timeout. Antiseptic prep. Sterile probe cover applied. Identified ASIS. Scrolled medially to identify confluence of sartorius muscle and internal oblique at bow tie juncture. Needle placed under ultrasound guidance to dissect IOM from iliacus. Injected local as indicated with multiple negative aspirations. Patient tolerated procedure well. Madeline Long CLINICAL APPEALS SPECIALIST [place] ANESTHESIA Final Result documented in this encounter Visit Diagnoses Not on filedocumented in this encounter Administered Medications Inactive Administered Medications - up to 3 most recent administrations Medication Order MAR Action Action Date Dose Rate Site ceFAZolin (ANCEF) 2 g in sodium chloride 0.9 % 50 mL IVPB 2 g, Intravenous, at 100 mL/hr, will call order clerk, 1 dose, On Denia 06/21/23 at 0645, Give 2 gram dose for patients less than 120 kg. Give within 60 minutes of surgical incision., Pre-Op New Bag 06/21/2023 7:29 AM MANAGER LPN 2 g dexamethasone PF (DECADRON) injection Subcutaneous, PRN, Starting on Denia 06/21/23 at 0719, Until Denia 06/21/23 at 0952, Anesthesia Intra-Op Given 06/21/2023 7:19 AM MANAGER LPN 5 mg dexamethasone PF (DECADRON) injection Intravenous, PRN, Starting on Denia 06/21/23 at 0742, Until Denia 06/21/23 at 0952, Anesthesia Intra-Op Given 06/21/2023 7:42 AM MANAGER LPN 5 mg fentaNYL (SUBLIMAZE) injection Intravenous, PRN, Starting on Denia 06/21/23 at 0719, Until Denia 06/21/23 at 0952, Anesthesia Intra-Op Given 06/21/2023 7:19 AM MANAGER LPN 100 mcg ketamine (KETALAR) injection Intravenous, PRN, Starting on Denia 06/21/23 at 0732, Until Denia 06/21/23 at 0952, Anesthesia Intra-Op Given 06/21/2023 7:32 AM MANAGER LPN 50 mg lactated ringers infusion at 10 mL/hr, Intravenous, Continuous, Starting on Denia 06/21/23 at 0645, Until Denia 06/21/23 at 1124, Infuse at TKO rate, Pre-Op Restarted 06/21/2023 7:58 AM MANAGER LPN Continued by Anesthesia 06/21/2023 7:28 AM MANAGER LPN 10 mL/hr New Bag 06/21/2023 7:13 AM MANAGER LPN 10 mL/hr midazolam (VERSED) injection Intravenous, PRN, Starting on Denia 06/21/23 at 0719, Until Denia 06/21/23 at 0952, Anesthesia Intra-Op Given 06/21/2023 9:21 AM MANAGER LPN 0.5 mg Given 06/21/2023 7:19 AM MANAGER LPN 2 mg morphine (PF) (ASTRAMORPH) injection Intravenous, PRN, Starting on Denia 06/21/23 at 0737, Until Denia 06/21/23 at 0952, Anesthesia Intra-Op Given 06/21/2023 7:37 AM MANAGER LPN 0.15 mg ondansetron (ZOFRAN) injection Intravenous, PRN, Starting on Denia 06/21/23 at 0729, Until Denia 06/21/23 at 0952, Anesthesia Intra-Op Given 06/21/2023 7:29 AM MANAGER LPN 4 mg phenylephrine (ZENON-SYNEPHRINE) 10 mg in sodium chloride 0.9 % 250 mL infusion Intravenous, Continuous PRN, Starting on Denia 06/21/23 at 0741, Until Denia 06/21/23 at 0952, Anesthesia Intra-Op Rate/Dose Change 06/21/2023 8:09 AM MANAGER LPN 30 mcg/min 45 mL/hr New Bag 06/21/2023 7:41 AM MANAGER LPN 20 mcg/min 30 mL/hr propofol (DIPRIVAN) IV bolus Intravenous, Continuous PRN, Starting on Denia 06/21/23 at 0732, Until Denia 06/21/23 at 0952, Anesthesia Intra-Op Rate/Dose Change 06/21/2023 9:05 AM MANAGER LPN 60 mcg/kg/min 25.308 mL/hr Rate/Dose Change 06/21/2023 8:13 AM MANAGER LPN 65 mcg/kg/min 27.4 17 mL/hr Rate/Dose Change 06/21/2023 8:01 AM MANAGER LPN 70 mcg/kg/min 29.5 26 mL/hr ROpivacaine 1 % (NAROPIN) injection Regional, PRN, Starting on Denia 06/21/23 at 0719, Until Denia 06/21/23 at 0952, Anesthesia Intra-Op Given 06/21/2023 7:22 AM MANAGER LPN 10 mLs Given 06/21/2023 7:21 AM MANAGER LPN 10 mLs Given 06/21/2023 7:20 AM MANAGER LPN 10 mLs tranexamic acid (CYKLOKAPRON) injection 1,000 mg 1,000 mg, Intravenous, Once, 1 dose, On Denia 06/21/23 at 0645, PHARMACIST TO ADJUST dose based on SCr (SCr less than 1.6 = 1,000 mg; SCr 1.6-3.3 = 750 mg; SCr 3.4-6.6 = 500 mg; SCr greater than 6.6 = 250 mg). Administer dose over 15 minutes prior to incision., Pre-Op Given 06/21/2023 7:42 AM MANAGER LPN 1,000 mg documented in this encounter Care Teams Customer Relations Coordinator Relationship Specialty Start Date End Date Asif Coto DO [address] [place] [address] PCP - General FAMILY PRACTICE 09/29/21 documented as of this encounter
--- OUTSIDE RECORDS SUMMARY | 2024-04-23 21:37 | XMS_ITS | Encounter Summary ---
Author Organization [facility] Address [address] [place] [address]. [place] [address] [place] [address] Care Team Providers Care Braille Coder Name Role Phone Nnamdi Asif GANDARA Primary Care Provider [phone] Encounter Details Date Type Department Care Team (Latest Contact Info) Description 06/21/2023 Travel Social History Tobacco Use Types Packs/Day Years Used Date Smoking Tobacco: Former Cigarettes Smokeless Tobacco: Never Alcohol Use Standard Drinks/Week Comments Not Currently 0 (1 standard drink = 0.6 oz pur e alcohol) Occassionaly. [facility] Utilities Answer Date Recorded In the past 12 months has [employer], gas, oil, or water [employer] threatened to shut off services in your [...] declined 02/26/2023 How often do you attend uatsdin or yazdanism serv ices? Patient declined 02/26/2023 Do you belong to any clubs o r organizations such as uatsdin groups, unions, fraternal or athletic groups, or [...] Recorded Patient Health Questionnaire-2 Score 0 02/26/2023 [facility] - Occupational Stress [...] Sexual Orientation Straight 02/26/2023 1: 40 PM MAINFRAME PROGRAMMER documented as of this encounter Functional Status * Question Answer Date of Assessment Author Status Do you have serious difficulty walking or climbing stairs? No 06/21/2023 11:27 AM Yanira Michel RN Ac tive * Question Answer Date of Assessment Author Status Do you have difficulty dressing or bathing? No 06/21/2023 11:27 AM Yanira Michel R N Active Because of a physical, [...] st Contact Info) Description 04/29/2024 1:45 PM MAINFRAME PROGRAMMER Office Visit [address] [address] Sujatha Solis, [facility]-[address] [place] [address] documented as of this encounter Visit Diagnoses Not on filedocumented in this encounter Care Teams Braille Coder Relationship Specialty Start Date End Date Asif Coto DO [address] [place] [address] PCP - General FAMILY PRACTICE 09/29/21 documented as of this encounter
--- OUTSIDE RECORDS SUMMARY | 2024-04-23 21:37 | XMS_ITS | Encounter Summary ---
Author Organization [facility] System Address [address] [place] [address]. [place] [address] [place] [address] Care Team Providers Care [facility] Name Role Phone Nnamdi Asif GANDARA Primary Care Provider [phone] Reason for Visit * Reason Onset Date Comments Medication 06/26/2023 Encounter Details Date Type Department Care Team (Late st Contact Info) Description 06/26/2023 Telephone [facility] [address], [facility] [address] [place] [address] Roldan Rader MD [address] [place] [address] Medication Social History Tobacco Use Types Packs/Day Years Used Date Smoking Tobacco: Former Cigarettes Smokeless Tobacco: Never Alcohol Use Standard Drinks/Week Comments Not Currently 0 (1 standard drink = 0.6 oz pur e alcohol) Occassionaly. [facility] Utilities Answer Date Recorded In the past 12 months has [employer], gas, oil, or water [employer] threatened to shut off services in your [...] declined 02/26/2023 How often do you attend restorationist or episcopalian serv ices? Patient declined 02/26/2023 Do you belong to any clubs o r organizations such as restorationist groups, unions, fraternal or athletic groups, or [...] Sexual Orientation Straight 02/26/2023 1: 40 PM [employer] documented as of this encounter Functional Status [...] Assessment Author Status No 06/21/2023 11:27 AM [employer] Emanuel, Yanira E, RN Active * Because [...] Progress Notes * Maylin Dougherty MA - 06/26/2023 9:38 AM CDT Received fax from [employer] reporting patient has history of receiving Cyclobenzaprine fromDr. Coto her PCP. Noted in chart. documented in this encounter Plan of Treatment Upcoming Encounters Date Type Department Care Team (Late st Contact Info) Description 04/29/2024 1:45 PM [employer] Office Visit [facility] [place] [address] [facility] [address] [place] [address] Sujatha Solis, CLINICAL ENGINEER- [address] [place] [address] [place] [address] documented as of this encounter Visit Diagnoses Not on filedocumented in this encounter Care Teams [facility] Relationship Specialty Start Date End Date Asif Coto DO [address] [place] [address] PCP - General FAMILY PRACTICE 09/29/21 documented as of this encounter
--- OUTSIDE RECORDS SUMMARY | 2024-04-23 21:37 | XMS_ITS | Encounter Summary ---
Author Organization [facility] Address [address] [place] [address]. 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 Procedures TOTAL HIP ARTHROPLASTY LEFT total hip arthroplasty ; ; Depuy notified, Labs to be done at [place], other side done 02/26/23 Roldan Olvera MD [address] [place] [address] Phone: tel: fax: Referral ID Status Reason Start Date Expiration Date Visits Re quested Visits Authorized [id number] 1 1 Encounter Details Date Type Department Care Team (Late st Contact Info) Description 06/21/2023 7:30 AM OPENSTACK DEVELOPER - 06/21/2023 10:21 AM OPENSTACK DEVELOPER Surgery [place] [place] [address] Roldan Olvera MD [address] [place] [id number] LEFT total hip arthroplasty Surgery Details Date/Time Status Location OR Service Patient Class Case Class Case Type Trauma Case? 06/21/2023 7:30 AM Posted SFL OR OR 1 Orthopedics Short Stay/Outpat ient Surgery No Panel 1 Procedure LRB Anes Op Region Wound Class Comments LEFT total hip arthroplasty Left Spinal Hip Cl michaela Surgeon Surgeon Role Service Panel Roldan Olvera MD Primary Orthopedics 1 documented in this encounter Social History Tobacco Use Types Packs/Day Years Used Date Smoking Tobacco: Former Cigarettes Smokeless Tobacco: Never Tobacco Cessation:Counseling Given: Not Answered Alcohol Use Standard Drinks/Week Comments Not Currently 0 (1 standard drink = 0.6 oz pur e alcohol) Occassionaly. [facility] Utilities Answer Date Recorded In the past 12 months has e [employer], [employer], oil, or water [employer] threatened to shut off services in your [...] How often do you attend faith or mormonism serv ices? Patient declined 02/26/2023 Do you [...] Patient Health Questionnaire-2 Score 0 02/26/2023 [facility] Occupat ional [facility] - Occupational Stress Questionnaire Answer Date [...] Sexual Orientation Straight 02/26/2023 1: 40 PM OPENSTACK DEVELOPER documented as of this encounter Last Filed Vital Signs Vital Sign Reading Time Taken Comments Blood Pressure 130/56 06/21/2023 10:09 AM OPENSTACK DEVELOPER Pulse 84 06/21/2023 10:09 AM OPENSTACK DEVELOPER Temperature 36.4 ??C (97.5 ??F) 06/21/2023 10:[address] Respiratory Rate 16 06/21/2023 10:09 AM OPENSTACK DEVELOPER Oxygen Saturation 96% 06/21/2023 10:09 AM OPENSTACK DEVELOPER Inhaled Oxygen Concentration - - Weight 70.3 kg (155 lb) 06/18/2023 11:23 AM OPENSTACK DEVELOPER Height 165.1 cm (5' 5 ) 06/18/2023 11:23 AM OPENSTACK DEVELOPER Body Mass Index 25.79 06/21/2023 11:23 AM OPENSTACK DEVELOPER documented in this encounter Functional Status * [...] Date Author Status No 06/21/2023 11:27 AM OPENSTACK DEVELOPER Yanira Castellanos RN Active documented in this encounter Discharge Summaries * Roldan Olvera MD - 06/22/2023 12:17 PM CST Physician Discharge Summary Patient ID: Donna Saunders [id number] 67-year-old 1955 Primary Care Physician: ASIF HOOD DO Admit date: 06/21/2023 Expected Discharge Date: 06/22/2023 Admitting Physician: Roldan lOvera MD Discharge Physician: Admission Diagnoses: Osteoarthritis of [...] by mouth 2 (two) times a day. [place]-3 Fatty Acids (FISH OIL) 500 MG capsule Take 1,000 mg by mouth daily. OZEMPIC 1 mg/dose injection (PEN) Inject into the skin once a week. pantoprazole EC (PROTONIX) 40 MG tablet Take 1 tablet (40 mg total) by mouth daily. TRUE METRIX BLOOD GLUCOSE TEST test strip TRUEplus Lancets 33G [facility] vitamin D3 (CHOLECALCIFEROL) 25 mcg [...] Signed: ROLDAN OLVERA MD 06/22/2023 12:17 PM STACK DEVELOPER documented in this encounter Discharge Instructions * Attachments The following attachments cannot be sent through Care Everywhere. * Total Hip Replacement Discharge Instructions (Namibian) documented in this encounter Medications at Time [...] total) by mouth nightly at bedtime. 05/13/2021 [facility] Natural Products (OSTEO BI-FLEX ADV TRIPLE ST) Tab Take 1 tablet by mouth 2 (two) times a day. [place]-3 Fatty Acids (FISH OIL) 500 MG capsule Take 1,000 mg by mouth daily. OZEMPIC 1 mg/dose injection (PEN) Inject into the skin once a week. 04/06/2023 pantoprazole EC (PROTONIX) 40 MG tablet Take 1 tablet (40 mg total) by mouth daily. 05/17/2023 TRUE METRIX BLOOD GLUCOSE TEST test strip 01/10/2021 TRUEplus Lancets 33G [facility] 01/10/2021 vitamin D3 (CHOLECALCIFEROL) 25 mcg tablet [...] discharge and will be attending outpatient therapy. STACK DEVELOPER * Shira Greco PTA - 06/22/2023 1:44 [...] of Session Safety Call light within reach STACK DEVELOPER * Reshma Cardozo RN - 06/22/2023 10:58 [...] Note: Patient has PRN pain medications ordered. STACK DEVELOPER * Shira Greco PTA - 06/22/2023 10:52 AM CST 06/22/23920 Therapy [...] call light within reach. Iceto left hip. CUTTING DEPARTMENT SUPERVISOR notified to ambulate patient again in about an hour, so patient isn't sitting all morning. Pt will be seen again this afternoon and then will be ready for discharged and will begin outpatient therapy in [place]. Discharge Recommendation PT Recommendation Home with assistance;Outpatient PT PT Equipment Recommended 2 Wheeled walker Plan PT Treatments/Interventions Gait Training;Therapeutic Exercises;Therapeutic Activities Progress Improving as expected PT Frequency BID PT plan for next session Review and complete HEP End of Session End of Session Safety Call light within reach STACK DEVELOPER * Kiera Mcmanus, OT - 06/22/2023 9:37 AM CST OT Treatment Discharge Recommendation: home with assistance DME equipment recommendation: 2 wheeled walker Activity Recommendation for certified genetic counselor: UP with 1 2ww, posterior hip precautions 06/22/23 09 Therapy Visit OT Received On 06/21/23 Reason [...] lives alone. Pt reports independence with ADLs PAYMENT COLLECTOR. Pt has a 2ww and AD for [...] pt reports she uses sock aid and line therapist at home since prior hipsurgery. Pt setup [...] Name: Donna Saunders Primary Language of learner: Namibian Patient educated on precautions transfers ADLs balance bed mobility equipment therapy plan gait safety. Education was completed one to one verbal hands-on this date. Preference of learning new concepts one to one verbal hands-on Barriers to education this date were Pt motivation pain. Response to education this date verbalized understanding. STACK DEVELOPER * Elena Guadalupe RN - 06/21/2023 9:50 [...] Outcome: Progressing Note: PRN pain medication given STACK DEVELOPER * Yanira Castellanos RN - 06/21/2023 5:54 [...] medication given as indicated, upon pt request. STACK DEVELOPER * Liliana Scott RN - 06/21/2023 2:35 PM CSTSummary: FINAL d/c note Final D/C Note Destination: Home Transportation: private vehicle DME: n/a No CM needs STACK DEVELOPER * Liliana Scott RN - 06/21/2023 2:34 [...] a walker for home use. NoCM needs STACK DEVELOPER * Liliana Scott RN - 06/21/2023 2:30 PM CSTSummary: Initial d/c plan 06/21/23 1430 Discharge Plan Discharge Plan Discharge to Home Donna is planning to return home via private vehicle. She states she already has a walker for home use. No CM needs STACK DEVELOPER * Fiona Lanza, PT - 06/21/2023 1:31 PM CST Instructions for Nursing: Up with one, ADELE, 2WW. Posterior hip precautions Physical Therapy Inpatient Evaluation Time In: 1319 Time Out: 1329 Donna Harden Chip 322/01 Osteoarthritis of both hips resulting from hip [...] Performed this Date Pivot: Not Performed this Ambulation: Not performed this date. Activity performed [...] in Reach, and Nursing Notified of Situation STACK DEVELOPER * Kiera Mcmanus, OT - 06/21/2023 1:27 PM CST OT Initial Evaluation Discharge Recommendation: home with assistance DME equipment recommendation: 2 wheeled walker Activity Recommendation for certified genetic counselor: Up with 1 2ww, posterior hip precautions LLE 06/21/23 1200 Therapy Visit OT Received On 06/21/23 Reason for admission Pt is a 67 yo female who presents with L HITESH 3/ WBAT posterior hip precautions......PMH: back pain, DM, [...] lives alone. Pt reports independence with ADLs PAYMENT COLLECTOR. Pt has a 2ww and AD for [...] education Pt reports independence as functional status PAYMENT COLLECTOR. Pt presents with pain, weakness, posterior hip [...] AE PRN including clothing retrieval with Modified [place] in order to increase independence with ADLs. Pt will brush teeth, wash face, brush hair, and wash hands standing at sink with 2WW with Modified [place] in order to increase independence with ADLs. Pt will perform all toileting tasks including clothing management using 2WW with Modified [place] in order to increase independence with functional transfers and ADLs. Pt will bathe whole body and wash hair seated on shower chair with Modified [place] in order to increase independence with ADLs. Pt will perform supine to sit and sit to supine bed mobility with [place] in order to increaseindependence with ADLs, transitional [...] use of techniques during functional activities with [place] in order to increase overall activity tolerance [...] Name: Donna Saunders Primary Language of learner: Namibian Patient educated on transfers ADLs balance bed mobility equipment therapy plan gait safety adaptive skills edema management joint protection ROM. Education was completed one to one verbal hands-on this date. Preference of learning new concepts one to one verbal hands-on Barriers to education this date were pain fatigue. Response to education this date verbalized understanding. STACK DEVELOPER documented in this encounter H&P Notes * [...] during recuperation were discussed with the patient/family/personal event representative. Reasonable alternatives to the patient's proposed procedure/surgery including benefits, risks, and side effects related to the alternatives and the risks related to not receiving the proposed care were also discussed with the patient/family/personal event representative. Questions were answered and the patient /family/personal event representative verbalized understanding and desires to proceed. STACK DEVELOPER Source Note - Roldan Olvera MD - 05/31/2023 4:00 PM OPENSTACK DEVELOPER Chief Complaint: Hip Pain (LEFT) History of [...] min Stress: No Stress Concern Present (02/26/2023) [facility] [place] [facility] - Occupational Stress Questionnaire Feeling of Stress : Not at all Social Connections: Unknown (02/26/2023) Social Connection and Isolation Panel [NHANES] Frequency of Communication with Friends and Family: Patient declined Frequency of Social Gatherings with Friends and Family: Patient declined Attends Restoration Services: Patient declined Active Member of Clubs [...] becomes available, Disp: 1 each, Rfl: PRN [place]-3 Fatty Acids (FISH OIL) 500 MG capsule, [...] Rfl: TRUEplus Lancets 33G [facility], , Disp: , Rfl: vitamin [...] up: Return for Post-Op. ROLDAN OLVERA MD STACK DEVELOPER STACK DEVELOPER documented in this encounter Nursing Notes * Reshma Cardozo RN - 06/22/2023 1:57 PM CST Patient discharged waiting on ride, states they will be here shortly. STACK DEVELOPER documented in this encounter OR Notes * Op Note - Roldan Olvera MD - 06/21/2023 9:29 AM CST Donna Saunders 1955 [id number] 06/21/2023 Preoperative Diagnosis: End-stage left hip osteoarthritis Postoperative Diagnosis: Same Procedure: left total hip arthroplasty using a DePuy [place] high offset size 7 stem with a +1.5 x 28 mm metal head and a 47 mm dual mobility liner with a 54 mm Gardner cup Surgeon: ROLDAN OLVERA MD Anesthesia: Spinal [...] counts were correct x2 following the procedure STACK DEVELOPER * Brief Op Note - Roldan Olvera MD - 06/21/2023 9:28 AM CST [facility] Brief Op HSHSLEFT total hip arthroplasty Depuy notified, Labs to be done at [place], other side done 02/26/23 Procedure Note Donna A Chip 06/21/2023 0730 Procedure(s) (LRB): LEFT total hip arthroplasty Depuy notified, Labs to be done at [place], other side done 02/26/23 (Left) Surgeon(s): Roldan Olvera MD Test Administrator: Unstacker: KATIE Rees Anesthesia: Spinal Pre-Op Diagnosis: M16.2 Post-Op Diagnosis: Same Findings: Estimated Blood Loss: 300 mL Specimens: None ROLDAN OLVERA MD Date: 06/21/2023 Time: 9:29 AM STACK DEVELOPER documented in this encounter Plan of Treatment Upcoming Encounters Date Type Department Care Team (Late st Contact Info) Description 04/29/2024 1:45 PM OPENSTACK DEVELOPER Office Visit [address] [address] Sujatha Solis, SHOPPING INSPECTOR- [address] [place] [address] documented as of this encounter Procedures Procedure Name Priority Date/Time Associated Diagnosis Comments HEMOGLOBIN AND HEMATOCRIT Routine 06/22/2023 5:07 AM OPENSTACK DEVELOPER POCT GLUCOSE - GERONIMO DOCKED DEVICE Routine 06/21/2023 10:02 AM OPENSTACK DEVELOPER XR PELVIS 1 OR 2 VIEWS Today 06/21/2023 8:58 AM OPENSTACK DEVELOPER TOTAL HIP ARTHROPLASTY 06/21/2023 7:13 AM OPENSTACK DEVELOPER 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 HCT 27.7(L) 36.0 - 47.0 % 06/22/2023 5:45 AM OPENSTACK DEVELOPER [facility] 06/22/2023 5:07 AM OPENSTACK DEVELOPER Roldan Olvera MD LABORATORY Final Result Performing Organization Address [facility] de Phone Number [facility] [address] [place] [address], * (ABNORMAL) POCT glucose (06/21/2023 10:02 AM OPENSTACK DEVELOPER) GLUCOSE POC 112(H) 70 - 99 MG/DL 06/21/2023 10:29 AM OPENSTACK DEVELOPER [facility] 06/21/2023 10:0 2 AM OPENSTACK DEVELOPER Roldan Olvera MD POCT ORDERABLES - DEVICE Final Result Performing Organization Address [facility] de Phone Number [facility] [address] [place] [address], * XR PELVIS 1 OR 2 VIEWS (06/21/2023 8:58 AM OPENSTACK DEVELOPER) Anatomical Region Laterality Modality Pelvis Radiographic Chanel ging 06/21/2023 4:05 PM OPENSTACK DEVELOPER Impressions 06/21/2023 4:09 PM OPENSTACK DEVELOPER IMPRESSION: Left hip arthroplasty. Correlation with the intraprocedural findings required. Ordered By: ROLDAN OLVERA Interpreted By: Abimael Shannon MD, 06/21/2023 4:05 PM Narrative 06/21/2023 4:09 PM OPENSTACK DEVELOPER Examination: Portable pelvis. Exam time: 0819 hours. [...] By: Abimael Shannon MD, 06/21/2023 4:05 PM Roldan Olvera MD GENERAL IMAGING Final Result * POCT glucose (06/21/2023 7:10 AM OPENSTACK DEVELOPER) GLUCOSE POC 79 70 - 99 MG/DL 06/21/2023 9:57 AM OPENSTACK DEVELOPER [facility] 06/21/2023 7:10 AM OPENSTACK DEVELOPER Roldan Olvera MD POCT ORDERABLES - DEVICE Final Result 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 Localized osteoarthrosis not specified whether primary or secondary, pelvic region and thigh Osteoarthritis of both hips resulting from hip [...] 500 MG tablet 1 dose, Starting on Sun06/21/23 at 0624, Until Sun06/21/23 at 0705, Created by cabinet override acetaminophen (TYLENOL) tablet 1,000 mg 1,000 mg, Oral, Once, 1 dose, On Sun06/21/23 at 0645, Maximum dose of acetaminophen is 4000 mg from all sources in 24 hours., Pre-Op Given 06/21/2023 7:05 AM OPENSTACK DEVELOPER 1,000 mg amLODIPine (NORVASC) tablet 10 mg 10 mg, Oral, Daily, First dose on Sun06/21/23 at 1100, Until Discontinued Given 06/22/2023 8:35 AM OPENSTACK DEVELOPER 10 mg Given 06/21/2023 1:02 PM OPENSTACK DEVELOPER 10 mg aspirin EC (ECOTRIN) tablet 81 mg 81 mg, Oral, 2 times daily with meals, First dose on Sun06/22/23 at 0800, Until Discontinued, Start the morning after surgery Do not break, chew, or crush., Post-Op Given 06/22/2023 8:36 AM OPENSTACK DEVELOPER 81 mg atorvastatin (LIPITOR) tablet 40 mg 40 mg, Oral, Daily, First dose on Sun06/21/23 at 1100, Until Discontinued Given 06/22/2023 8:35 AM OPENSTACK DEVELOPER 40 mg Given 06/21/2023 1:02 PM OPENSTACK DEVELOPER 40 mg ceFAZolin (ANCEF) 2 g in sodium chloride 0.9 % 50 mL IVPB 2 g, Intravenous, at 100 mL/hr, Every 8 hours, 2 doses, First dose on Sun06/21/23 at 1530, Last dose on Sun06/21/23 at 2330, Give 2 gram dose for patients less than 120 kg. PHARMACY TO ADJUST administration times based on pre-op/intra-op dose. Do NOT continue greater than 24 hours after anesthesia end time., Post-Op New Bag 06/21/2023 11:14 PM OPENSTACK DEVELOPER 2 g 100 mL/hr New Bag 06/21/2023 3:31 PM OPENSTACK DEVELOPER 2 g 100 mL/hr celecoxib (CeleBREX) 100 MG capsule 1 dose, Starting on Sun06/21/23 at 0624, Until Sun06/21/23 at 0705, Created by cabinet override celecoxib (CeleBREX) capsule 200 mg 200 mg, Oral, Once, 1 dose, On Sun06/21/23 at 0645, Do not administer with antacids, Pre-Op Given 06/21/2023 7:05 AM OPENSTACK DEVELOPER 200 mg chlorhexidine (PERIDEX) 0.12 % solution 15 mL 15 mL, Mouth/Throat, PRN, Prior to surgery, 1 dose, Starting on Sun06/21/23 at 0624, Until Sun06/21/23 at 0706, Patient to perform oral care first. Swish/Gargle in mouth for 30 seconds, and then discard, prior to going to surgery/ If ventilated use saturated swab to clean oral cavity., Pre-Op Given 06/21/2023 7:06 AM OPENSTACK DEVELOPER 15 mLs cyanocobalamin (B-12) injection 1,000 mcg 1,000 mcg, Intramuscular, Weekly, First dose (after last modification) on Sun06/25/23 at 0900, Until Discontinued cyclobenzaprine (FLEXERIL) tablet 10 mg 10 mg, Oral, 3 times daily PRN, Muscle Spasms, Starting on Sun06/22/23 at 1211, Until Sun06/22/23 at 1657 Given 06/22/2023 12:18 PM OPENSTACK DEVELOPER 10 mg diphenhydrAMINE (BENADRYL) 12.5 MG/5ML elixir [...] Until Discontinued, Post-Op Given 06/22/2023 8:35 AM OPENSTACK DEVELOPER 100 mg Given 06/21/2023 8:26 PM OPENSTACK DEVELOPER 100 mg Given 06/21/2023 1:03 PM OPENSTACK DEVELOPER 100 mg famotidine (PEPCID) 20 MG tablet 1 dose, Starting on Sun06/21/23 at 0640, Until Sun06/21/23 at 0705, Created by cabinet override famotidine (PEPCID) tablet 20 mg 20 mg, Oral, Once, 1 dose, On Sun06/21/23 at 0630 Given 06/21/2023 7:05 AM OPENSTACK DEVELOPER 20 mg HYDROcodone-acetaminophen (NORCO) 10-325 MG tablet 1 tablet 1 tablet, Oral, Every 4 hours PRN, Severe pain (Scale 8 - 10), Starting on Sun06/21/23 at 1117, Until Sun06/21/23 at 1602, Maximum dose of acetaminophen is 4000 mg from all sources in 24 hours., Post-Op Given 06/21/2023 1:04 PM OPENSTACK DEVELOPER 1 tablet HYDROmorphone (DILAUDID) 1 MG/ML injection 1 dose, Starting on Sun06/21/23 at 1006, Until Sun06/21/23 at 1010, Created by cabinet override HYDROmorphone (DILAUDID) injection 0.5 mg 0.5 mg, Intravenous, Every 10 min PRN, Moderate pain (Scale 4 - 7), 4 doses, Starting on Sun06/21/23 at 1005, Until Sun06/21/23 at 1038, Maximum cumulative dose 1 mg. [...] dosing interval., PACU Given 06/21/2023 10:10 AM OPENSTACK DEVELOPER 0.5 mg lactated ringers infusion at 10 mL/hr, Intravenous, Continuous, Starting on Denia 06/21/23 at 0645, Until Denia 06/21/23 at 1124, Infuse at TKO rate, Pre-Op Restarted 06/21/2023 7:58 AM OPENSTACK DEVELOPER Continued by Anesthesia 06/21/2023 7:28 AM OPENSTACK DEVELOPER 10 mL/hr New Bag 06/21/2023 7:13 AM OPENSTACK DEVELOPER 10 mL/hr levothyroxine (SYNTHROID) tablet 75 mcg 75 mcg, Oral, Every morning, First dose on Sun06/22/23 at 0700, Until Discontinued, Avoid iron, calcium, and antacids within 4 hours of administration. Given 06/22/2023 6:16 AM OPENSTACK DEVELOPER 75 mcg lidocaine-prilocaine (EMLA) 2.5-2.5 % cream 1 dose, Starting on Denia 06/21/23 at 0635, Until Denia 06/21/23 at 0706, Created by cabdelmist urbano lidocaine-prilocaine (EMLA) cream Topical, Once as needed, Mild pain (Scale 1 - 3), 1 dose, Starting on Denia 06/21/23 at 0624, Until Denia 06/21/23 at 0706, Apply 30-60 minutes prior to procedure for IV insertion. May place cream to at least 2-3 areas in case of difficulties. , Pre-Op Given 06/21/2023 7:06 AM OPENSTACK DEVELOPER lisinopril (PRINIVIL) tablet 5 mg 5 mg, Oral, Daily, First dose on Denia 06/21/23 at 1100, Until Discontinued Given 06/22/2023 8:35 AM OPENSTACK DEVELOPER 5 mg losartan (COZAAR) tablet 50 mg 50 mg, Oral, Daily, First dose on Denia 06/21/23 at 1100, Until Discontinued Given 06/22/2023 8:35 AM OPENSTACK DEVELOPER 50 mg meloxicam (MOBIC) tablet 7.5 mg 7.5 mg, Oral, Daily, First dose on Sun06/21/23 at 1100, Until Discontinued Given 06/22/2023 8:35 AM OPENSTACK DEVELOPER 7.5 mg Given 06/21/2023 1:02 PM OPENSTACK DEVELOPER 7.5 mg metFORMIN ER (GLUCOPHAGE-XR) 24 hr tablet 500 mg 500 mg, Oral, Nightly at bedtime, First dose on Sun06/21/23 at 2100, Until Discontinued, Do not break, chew, or crush. Given 06/21/2023 8:26 PM OPENSTACK DEVELOPER 500 mg metoclopramide (REGLAN) 10 MG tablet 1 dose, Starting on Sun06/21/23 at 0640, Until Sun06/21/23 at 0705, Created by yves clement metoclopramide (REGLAN) tablet 10 mg 10 mg, Oral, Once, 1 dose, On Sun06/21/23 at 0630 Given 06/21/2023 7:05 AM OPENSTACK DEVELOPER 10 mg naLOXone (NARCAN) injection 0.4 mg [...] in 24 hours. Given 06/22/2023 12:18 PM OPENSTACK DEVELOPER 1 tablet Given 06/22/2023 3:42 AM OPENSTACK DEVELOPER 1 tablet Given 06/21/2023 8:27 PM OPENSTACK DEVELOPER 1 tablet oxyCODONE-acetaminophen (PERCOCET) 5-325 MG tablet 1 tablet 1 tablet, Oral, Every 4 hours PRN, Moderate pain (Scale 4 - 7), Starting on Sun06/21/23 at 1602, Until Sun06/22/23 at 1657, Maximum dose of acetaminophen is 4000 mg from all sources in 24 hours. Given 06/22/2023 8:34 AM OPENSTACK DEVELOPER 1 tablet pantoprazole EC (PROTONIX) tablet 40 mg 40 mg, Oral, Daily, First dose on Sun06/21/23 at 1100, Until Discontinued, Do not break, chew, or crush. Given 06/22/2023 8:36 AM OPENSTACK DEVELOPER 40 mg Given 06/21/2023 1:02 PM OPENSTACK DEVELOPER 40 mg sodium chloride 0.9 % 3,000 mL with gentamicin 320 mg irrigation As needed, Starting on Denia 06/21/23 at 0932, Until Denia 06/21/23 at 0953, Intra-Op Given 06/21/2023 9:32 AM OPENSTACK DEVELOPER 3,000 mLs Operative Site vitamin D3 (cholecalciferol) tablet 25 mcg 25 mcg, Oral, Daily, First dose on Denia 06/21/23 at 1100, Until Discontinued Given 06/22/2023 8:35 AM OPENSTACK DEVELOPER 25 mcg Given 06/21/2023 1:02 PM OPENSTACK DEVELOPER 25 mcg zolpidem (AMBIEN) tablet 5 mg 5 mg, Oral, Nightly at bedtime, First dose on Denia 06/21/23 at 2100, Until Discontinued, May repeat x1 if necessary Given 06/21/2023 8:26 PM OPENSTACK DEVELOPER 5 mg documented in this encounter Active and Recently Administered Medications Times are shown in OPENSTACK DEVELOPER. Scheduled Medication Order 06/20/2023 06/21/2023 06/22/2023 acetaminophen (TYLENOL) tablet 1,000 mg (COMPLETED) 1,000 mg, Oral, Once, 1 dose, On Denia 06/21/23 at 0645, Maximum dose of acetaminophen is 4000 mg from all sources in 24 hours., Pre-Op 07 (Given - Provider: Cynthia Kennedy RN) amLODIPine (NORVASC) tablet 10 mg 10 mg, Oral, Daily, First dose on Sun06/21/23 at 1100, Until Discontinued 1302 (Given - Provider: Yanira Castellanos RN) 0835 (Given - Provider: Resham Cardozo RN) aspirin EC (ECOTRIN) tablet 81 [...] (COMPLETED) 2 g, Intravenous, at 100 mL/hr, estimator project manager, 1 dose, On Denia 06/21/23 at 0645, Give 2 gram dose for patients less than 120 kg. Give within 60 minutes of surgical incision., Pre-Op 0729 (New Bag - Provider: Madeline Long CRNA)0759 (Infusion Stop Time - Provider: Madeline Long CRNA) ceFAZolin (ANCEF) 2 g in sodium chloride 0.9 % 50 mL IVPB (COMPLETED) 2 g, Intravenous, at 100 mL/hr, Every 8 hours, 2 doses, First dose on Denia 3 at 1530, Last dose on Denia 06/21/23 [...] 200 mg, Oral, Once, 1 dose, On Denia 06/21/23 at 0645, Do not administer with antacids, Pre-Op 0705 (Given - Provider: Cynthia Kennedy RN) cyanocobalamin (B-12) injection 1,000 mcg 1,000 mcg, Intramuscular, Weekly, First dose (after last modification) on Sun06/25/23 at 0900, Until Discontinued docusate sodium (COLACE) capsule 100 mg 100 mg, Oral, 2 times daily, First dose on Denia 06/21/23 at 1145, Until Discontinued, Post-Op 1303 (Given - Provider: Yanira Castellanos RN)202 (Given - Provider: Elena Guadalupe RN) 0835 [...] and antacids within 4 hours of administration. 615 (Given - Provid er: Elena Guadalupe RN) lisinopril (PRINIVIL) tablet 5 mg 5 mg, Oral, Daily, First dose on Denia 06/21/23 at 1100, Until Discontinued 1200 (Not Given - Provider: Yanira Castellanos RN - Reason: Provider Order - Comment: Instructed to hold due to low BP, per Dr. Olvera.) 0835 (Given - Provider: Reshma Cardozo RN) losartan (COZAAR) tablet 50 mg 50 mg, Oral, Daily, First dose on Denia 06/21/23 at 1100, Until Discontinued 1200 (Not Given - Provider: Yanira Castellanos RN - Reason: Provider Order - Comment: Instructed to hold due to low BP, per Dr. Olvera.) 0835 (Given - Provider: Reshma Cardozo RN) meloxicam (MOBIC) tablet 7.5 mg 7.5 [...] Castellanos RN) 0836 (Given - Provider: Reshma Cardozo, UNA) tranexamic acid (CYKLOKAPRON) injection 1,000 mg (COMPLETED) [...] Castellanos RN) 0835 (Given - Provider: Reshma Cardozo, UNA) zolpidem (AMBIEN) tablet 5 mg 5 mg, Oral, Nightly at bedtime, First dose on Denia 06/21/23 at 2100, Until Discontinued, May repeat x1 if necessary 2025 (Given - Provider: Elena Guadalupe RN) Continuous Medication Order 06/20/2023 06/21/2023 06/22/2023 lactated [...] (Scale 1 - 3), Fever, Starting on Sun06/21/23 at 1117, Until Sun06/22/23 at 1657, Maximum dose of acetaminophen is 4000 mg from all sources in 24 hours., Post-Op bisacodyl (DULCOLAX) suppository 10 mg 10 mg, Rectal, Daily as needed, Constipation, Starting on Sun06/21/23 at 1117, Until Sun06/22/23 at 1657, If more than one PRN medication for constipation is ordered, use in this order: polyethylene glycol (MIRALAX), senna, bisacodyl (DULCOLAX) EC tablet PO, bisacodyl (DULCOLAX) suppository. If no results by next dosing interval, move to next option, Post-Op bisacodyl EC (DULCOLAX) tablet 5 mg 5 mg, Oral, Daily as needed, Constipation, Starting on Sun06/21/23 at 1117, Until Sun06/22/23 at 1657, If [...] Starting on Denia 06/21/23 at 1117, Until 06/22/23 at 1657, Give if unable to swallow tablets/capsules or if patient prefers liquid., Post-Op diphenhydrAMINE (BENADRYL) capsule 25 mg(Linked Group 1) 25 mg, Oral, Every 6 hours PRN, Itching, Starting on Denia 06/21/23 at 1117, Until 06/22/23 at 1657, Post-Op diphenhydrAMINE (BENADRYL) injection 25 [...] areas in case of difficulties. , Pre-Op 705 (Given - Provider: Cynthia Kennedy RN) morphine [...] Yanira Castellanos RN)2027 (Given - Provider: Elena Guadalupe, UNA) 0342 (Given - Provider: Elena Guadalupe RN)1218 [...] Post-Op documented in this encounter Care Teams Pipeline Maintenance Supervisor Relationship Specialty Start Date End Date Asif Hood DO [facility] [place] [address] PCP - General FAMILY PRACTICE 09/29/21 documented as of this encounter
--- OUTSIDE RECORDS SUMMARY | 2024-04-23 21:37 | XMS_ITS | Encounter Summary ---
Author Organization [facility] Address [address] [place] [address]. [place] [address] [place] [address] Care Team Providers Care Character Actor Name Role Phone Nnamdi Asif GANDARA Primary Care Provider [phone] Encounter Details Date Type Department Care Team (Latest Contact Info) Description 03/13/2023 Travel Social History Tobacco Use Types Packs/Day Years Used Date Smoking Tobacco: Former Cigarettes Smokeless Tobacco: Never Alcohol Use Standard Drinks/Week Comments Not Currently 0 (1 standard drink = 0.6 oz pur e alcohol) [facility] Utilities Answer Date Recorded In the past 12 months has [employer], gas, oil, or water [employer] threatened to shut off services in your [...] declined 02/26/2023 How often do you attend synagogue or yazidism serv ices? Patient declined 02/26/2023 Do you belong to any clubs o r organizations such as synagogue groups, unions, fraternal or athletic groups, or [...] Recorded Patient Health Questionnaire-2 Score 0 02/26/2023 [facility] Occupat ional Health - Occupational [...] Sexual Orientation Straight 02/26/2023 1: 40 PM PRODUCTION LINE ASSEMBLER documented as of this encounter Functional Status * Are you deaf or do you have serious difficulty hearing Answer Date of Assessment Author Status No 02/26/2023 1:46 PM PRODUCTION LINE ASSEMBLER Casie Mcduffie RN Active * Are you blind or do you have serious difficulty seeing, even when wearing glasses? Answer Date of Assessment Author Status No 02/26/2023 1:46 PM PRODUCTION LINE ASSEMBLER Casie Mcduffie RN Active * Do you have serious difficulty walking or climbing stairs? Answer Date of Assessment Author Status No 02/26/2023 1:46 PM PRODUCTION LINE ASSEMBLER Casie Mcduffie RN Active * Do you have difficulty dressing or bathing? Answer Date of Assessment Author Status No 02/26/2023 1:46 PM PRODUCTION LINE ASSEMBLER Casie Mcduffie RN Active * Because of a physical, mental, or emotional condition, do you have difficulty doing errands alone such as visiting a doctor's office or shopping? Answer Date of Assessment Author Status No 02/26/2023 1:46 PM PRODUCTION LINE ASSEMBLER Casie Mcduffie RN Active documented as of this encounter Mental Status * Because of a physical, mental, or emotional condition, do you have serious difficulty concentrating, remembering, or making decisions? Answer Entry Date Author Status No 02/26/2023 1:46 PM PRODUCTION LINE ASSEMBLER Casie Mcduffie RN Active documented in this encounter Plan of Treatment Upcoming Encounters Date Type Department Care Team (Late st Contact Info) Description 04/29/2024 1:45 PM PRODUCTION LINE ASSEMBLER Office [place] [facility] [place] [facility] [place] [address] [facility] 1 [place] [address] Sujatha Solis, POT BUILDER- [address] [place] [address] [place] [address] documented as of this encounter Visit Diagnoses Not on filedocumented in this encounter Care Teams Character Actor Relationship Specialty Start Date End Date Asif Coto DO [address] [place] [address] PCP - General FAMILY PRACTICE 09/29/21 documented as of this encounter
--- OUTSIDE RECORDS SUMMARY | 2024-04-23 21:37 | XMS_ITS | Encounter Summary ---
Author Organization [facility] Address [address] [place] [address]. [place] [address] [place] [address] Care Team Providers Care Aviation Technical Systems Specialist Name Role Phone Nnamdi Asif GANDARA Primary Care Provider [phone] Encounter Details Date Type Department Care Team (Latest Contact Info) Description 02/26/2023 Travel Social History Tobacco Use Types Packs/Day Years Used Date Smoking Tobacco: Former Cigarettes Smokeless Tobacco: Never Alcohol Use Standard Drinks/Week Comments Not Currently 0 (1 standard drink = 0.6 oz pur e alcohol) [facility] Utilities Answer Date Recorded In the past 12 months has [employer], gas, oil, or water [employer] threatened to shut off services in your [...] often do you attend latter day or sikh serv ices? Patient declined 02/26/2023 [...] Recorded Patient Health Questionnaire-2 Score 0 02/26/2023 [facility] of Occupat ional Health - [...] Sexual Orientation Straight 02/26/2023 1: 40 PM INTELLECTUAL PROPERTY MANAGER documented as of this encounter Functional Status * Question Answer Date of Assessment Author Status Do you have serious difficulty walking or climbing stairs? No 02/26/2023 1:46 PM INTELLECTUAL PROPERTY MANAGER Casie Mcduffie RN A ctive * Question Answer Date of Assessment Author Status Do you have difficulty dressing or bathing? No 02/26/2023 1:46 PM INTELLECTUAL PROPERTY MANAGER Casie Mcduffie RN Active Because of a physical, mental, or emotional condition, do you have difficulty doing errands alone such as visiting a doctor's office or shopping? No 02/26/2023 1:46 PM Casie Stratton RN Ac tive * Are you deaf [...] Assessment Author Status No 02/26/2023 1:46 PM INTELLECTUAL PROPERTY MANAGER Casie Mcduffie RN Active * Do you have difficulty dressing or bathing? Answer Date of Assessment Author Status No 02/26/2023 1:46 PM Casie Stratton RN Active * Because of a physical, mental, or emotional condition, do you have difficulty doing errands alone such as visiting a doctor's office or shopping? Answer Date of Assessment Author Status No 02/26/2023 1:46 PM INTELLECTUAL PROPERTY MANAGER Casie Mcduffie RN Active documented as of this encounter Mental Status * Question Answer Entry Date Author Status Because of a physical, mental, or emotional condition, do you have serious difficulty concentrating, remembering, or making decisions? No 02/26/2023 1:46 PM Casie Stratton RN Active * Because of a physical, mental, or emotional condition, do you have serious difficulty concentrating, remembering, or making decisions? Answer Entry Date Author Status No 02/26/2023 1:46 PM Casie Stratton RN Active documented in this encounter Plan of Treatment Upcoming Encounters Date Type Department Care Team (Late st Contact Info) Description 04/29/2024 1:45 PM INTELLECTUAL PROPERTY MANAGER Office Visit [facility] [address] [address] Sujatha Solis, [facility]- [address] [place] [address] [place] [address] documented as of this encounter Visit Diagnoses Not on filedocumented in this encounter Care Teams Aviation Technical Systems Specialist Relationship Specialty Start Date End Date Asif Coto DO [address] [place] [address] PCP - General FAMILY PRACTICE 09/29/21 documented as of this encounter
--- OUTSIDE RECORDS SUMMARY | 2024-04-23 21:37 | XMS_ITS | Encounter Summary ---
Author Organization [facility] Address [address] [place] [address]. [place] [address] [place] [address] Care Team Providers Care Machine Egg Washer Name Role Phone Nnamdi Asif GANDARA Primary Care Provider [phone] Reason for Visit * Reason Onset Date Comments Refill Request 03/06/2023 Encounter Details Date Type Department Care Team (Late st Contact Info) Description 03/06/2023 Telephone [facility] [place] [id number] [facility], [facility] 1 [place] [address] Roldan Rader MD [address] [place] [address] Refill Request Social History Tobacco Use Types Packs/Day Years Used Date Smoking Tobacco: Former Cigarettes Smokeless Tobacco: Never Alcohol Use Standard Drinks/Week Comments Not Currently 0 (1 standard drink = 0.6 oz pur e alcohol) [facility] Utilities Answer Date Recorded In the past 12 months has e [employer], gas, oil, or water [employer] threatened to shut off services in your [...] How often do you attend anglican or judaism serv ices? Patient declined 02/26/2023 Do you [...] Recorded Patient Health Questionnaire-2 Score 0 02/26/2023 [facility] of Occupat ional Health - Occupational Stress [...] Sexual Orientation Straight 02/26/2023 1: 40 PM EXTRACTOR LOADER AND UNLOADER documented as of this encounter Functional Status * Are you deaf or do you have serious difficulty hearing Answer Date of Assessment Author Status No 02/26/2023 1:46 PM EXTRACTOR LOADER AND UNLOADER Casie Mcduffie RN Active * Are you blind or do you have serious difficulty seeing, even when wearing glasses? Answer Date of Assessment Author Status No 02/26/2023 1:46 PM EXTRACTOR LOADER AND UNLOADER Casie Mcduffie RN Active * Do you have serious difficulty walking or climbing stairs? Answer Date of Assessment Author Status No 02/26/2023 1:46 PM EXTRACTOR LOADER AND UNLOADER Casie Mcduffie RN Active * Do you have difficulty dressing or bathing? Answer Date of Assessment Author Status No 02/26/2023 1:46 PM EXTRACTOR LOADER AND UNLOADER Casie Mcduffie RN Active * Because of a physical, mental, or emotional condition, do you have difficulty doing errands alone such as visiting a doctor's office or shopping? Answer Date of Assessment Author Status No 02/26/2023 1:46 PM EXTRACTOR LOADER AND UNLOADER Casie Mcduffie RN Active documented as of this encounter Mental Status * Because of a physical, mental, or emotional condition, do you have serious difficulty concentrating, remembering, or making decisions? Answer Entry Date Author Status No 02/26/2023 1:46 PM EXTRACTOR LOADER AND UNLOADER Casie Mcduffie RN Active documented in this encounter Progress Notes * Trinity Griffin RN - 03/06/2023 3:16 PM CST Patient called and notified that pain medication has been sent to her pharmacy and can be picked uplater today. Patient also had a question about the Aquacel dressing that she has on and wasn't for sure if she can remove it. Advised patient that she can remove the dressing at this time. Patient v/u and no further questions noted. ACTOR LOADER AND UNLOADER * Roldan Rader MD - 03/06/2023 3:05 PM CSTAddended by: ROLDAN RADER on: 03/06/2023 03:05 PM Modules accepted: Orders ACTOR LOADER AND UNLOADER * Trinity Griffin RN - 03/06/2023 1:50 PM CST ----- Message from Adamaris Waddell CNA sent at 03/06/2023 1:19 PM EXTRACTOR LOADER AND UNLOADER ----- SX 02/26/2023 right total hip arthroplasty using a Depuy size 7 standard offset stem with a 54 mm Baldwin shell using a dual mobility liner and a 28 x +1.5 mm metal head [facility] [place] Pain medication and she has a question about her dressing. 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
--- OUTSIDE RECORDS SUMMARY | 2024-04-23 21:37 | XMS_ITS | Encounter Summary ---
Author Organization [facility] Address [address] [place] [address]. [place] [address] [place] [address] Care Team Providers Care Tool And Die Machinist Name Role Phone MushtaqVivi hansonvarsha GANDARA Primary Care Provider [phone] Encounter Details Date Type Department Care Team (Late st Contact Info) Description 06/01/2023 Orders Only [facility] [address] [place] [address], [facility] 1 [place] [address] Roldan Rader MD [address] [place] [address] Social History Tobacco Use Types Packs/Day Years Used Date Smoking Tobacco: Former Cigarettes Smokeless Tobacco: Never Alcohol Use Standard Drinks/Week Comments Not Currently 0 (1 standard drink = 0.6 oz pur e alcohol) [facility] Utilities Answer Date Recorded In the past 12 months has [facility] [employer], gas, oil, or water [employer] threatened to shut off services in your [...] How often do you attend orthodox or buddhist serv ices? Patient declined 02/26/2023 [...] Sexual Orientation Straight 02/26/2023 1: 40 PM HAT LINING BLOCKER documented as of this encounter Functional Status * Are you deaf or do you have serious difficulty hearing Answer Date of Assessment Author Status No 02/26/2023 1:46 PM HAT LINING BLOCKER Casie Mcduffie RN Active * Are you blind or do you have serious difficulty seeing, even when wearing glasses? Answer Date of Assessment Author Status No 02/26/2023 1:46 PM HAT LINING BLOCKER Casie Mcduffie RN Active * Do you have serious difficulty walking or climbing stairs? Answer Date of Assessment Author Status No 02/26/2023 1:46 PM HAT LINING BLOCKER Casie Mcduffie RN Active * Do you have difficulty dressing or bathing? Answer Date of Assessment Author Status No 02/26/2023 1:46 PM HAT LINING BLOCKER Casie Mcduffie RN Active * Because of a physical, mental, or emotional condition, do you have difficulty doing errands alone such as visiting a doctor's office or shopping? Answer Date of Assessment Author Status No 02/26/2023 1:46 PM HAT LINING BLOCKER Casie Mcduffie RN Active documented as of this encounter Mental Status * Because of a physical, mental, or emotional condition, do you have serious difficulty concentrating, remembering, or making decisions? Answer Entry Date Author Status No 02/26/2023 1:46 PM HAT LINING BLOCKER Casie Mcduffie RN Active documented in this encounter Plan of Treatment Upcoming Encounters Date Type Department Care Team (Late st Contact Info) Description 04/29/2024 1:45 PM HAT LINING BLOCKER Office Visit [facility] [place] [id number] [address] Sujatha Solis, [facility]- [address] [facility] [place] [address] documented as of this encounter Visit Diagnoses Not on filedocumented in this encounter Care Teams Tool And Die Machinist Relationship Specialty Start Date End Date Asif Coto DO [address] [place] [address] PCP - General FAMILY PRACTICE 09/29/21 documented as of this encounter
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
--- OUTSIDE RECORDS SUMMARY | 2024-04-23 21:37 | XMS_ITS | Encounter Summary ---
Author Organization [facility] Address [address] [place] [address]. [place] [address] [place] [address] Care Team Providers Care Per Diem Registered Nurse Name Role Phone Nnamdi Asif GANDARA Primary Care Provider [phone] Encounter Details Date Type Department Care Team (Latest Contact Info) Description 06/25/2023 Travel Social History Tobacco Use Types Packs/Day Years Used Date Smoking Tobacco: Former Cigarettes Smokeless Tobacco: Never Alcohol Use Standard Drinks/Week Comments Not Currently 0 (1 standard drink = 0.6 oz pur e alcohol) Occassionaly. [facility] Utilities Answer Date Recorded In the past 12 months has [employer], gas, oil, or water [employer] threatened to shut off services in your [...] How often do you attend taoism or temple serv ices? Patient declined 02/26/2023 Do you [...] Sexual Orientation Straight 02/26/2023 1: 40 PM MID LEVEL PROVIDER documented as of this encounter Functional Status [...] Date Author Status No 06/21/2023 11:27 AM MID LEVEL PROVIDER Yanira Castellanos, RN Active documented in this encounter Plan of Treatment Upcoming Encounters Date Type Department Care Team (Late st Contact Info) Description 04/29/2024 1:45 PM MID LEVEL PROVIDER Office Visit [facility] [address] [address] Sujatha Solis, [facility]- [address] [place] [address] [place] [address] documented as of this encounter Visit Diagnoses Not on filedocumented in this encounter Care Teams Per Diem Registered Nurse Relationship Specialty Start Date End Date Asif Coto DO [address] [place] [address] PCP - General FAMILY PRACTICE 09/29/21 documented as of this encounter
--- OUTSIDE RECORDS SUMMARY | 2024-04-23 21:37 | XMS_ITS | Encounter Summary ---
Author Organization [facility] Address [address] [place] [address]. [place] [address] [place] [address] Care Team Providers Care Dog Handler Name Role Phone MushtaqVivi hansonvarsha GANDARA Primary Care Provider [phone] Reason for Visit * Reason Comments Postop Followup DOS 02/26/23 RIGHT t otal hip arthroplasty Encounter Details Date Type Department Care Team (Latest Contact Info) Description 04/17/2023 10:00 AM HARNESS CUTTER Office Visit [facility] [address], [address] [address] Roldan Rader MD [address] [place] [address] [phone] Postop Followup (DOS 02/26/23 RIGHT total hip arthroplasty) Social History Tobacco Use Types Packs/Day Years Used Date Smoking Tobacco: Former Cigarettes Smokeless Tobacco: Never Tobacco Cessation:Counseling Given: Not Answered Alcohol Use Standard Drinks/Week Comments Not Currently 0 (1 standard drink = 0.6 oz pur e alcohol) [facility] Utilities Answer Date Recorded In the past 12 months has [employer], gas, oil, or water company threatened [...] How often do you attend hindu or sabianist serv ices? Patient declined 02/26/2023 [...] Recorded Patient Health Questionnaire-2 Score 0 02/26/2023 [facility] - Occupational Stress [...] Sexual Orientation Straight 02/26/2023 1: 40 PM HARNESS CUTTER documented as of this encounter Last Filed Vital Signs Vital Sign Reading Time Taken Comments Blood Pressure - - Pulse - - Temperature - - Respiratory Rate - - Oxygen Saturation - - Inhaled Oxygen Concentration - - Weight 74.8 kg (165 lb) 04/17/2023 10:07 AM HARNESS CUTTER Height 165.1 cm (5' 5 ) 04/17/2023 10:07 AM HARNESS CUTTER Body Mass Index 27.46 04/17/2023 10:07 AM HARNESS CUTTER documented in this encounter Functional Status * Are you deaf or do you have serious difficulty hearing Answer Date of Assessment Author Status No 02/26/2023 1:46 PM HARNESS CUTTER Casie Mcduffie RN Active * Are you blind or do you have serious difficulty seeing, even when wearing glasses? Answer Date of Assessment Author Status No 02/26/2023 1:46 PM Casie Stratton RN Active * Do you have serious difficulty walking or climbing stairs? Answer Date of Assessment Author Status No 02/26/2023 1:46 PM HARNESS CUTTER Casie Mcduffie RN Active * Do you have difficulty dressing or bathing? Answer Date of Assessment Author Status No 02/26/2023 1:46 PM HARNESS CUTTER Casie Mcduffie RN Active * Because of [...] Stratton RN Active documented in this encounter Progress Notes * Maylin Dougherty MA - 04/17/2023 10:00 AM CST Donna is a 67-year-old female who presents for Postop Followup (DOS 02/26/23 RIGHT total hip arthroplasty) Patient presents to clinic today for post-op follow up of RIGHT hip. She denies pain. She denies numbness, tingling, bruising and swelling. She is on her 6th week of physical therapy at [facility] in [place], she goes three times weekly. She denies night pain. She does still take meloxicam daily. She uses ice after physical therapy. She uses cane to ambulate in office today. She is retired. No additional nursing task documentation needed. Vitals: 04/17/23 1007 Weight: 74.8 kg (165 lb) Height: 1.651 m (5' 5 ) [...] mg total) by mouth nightly at bedtime. [facility] Natural Products (OSTEO BI-FLEX ADV TRIPLE ST) Tab Take 1 tablet by mouth 2 (two) times a day. naloxone (NARCAN) 4 MG/0.1ML nasal spray 1 spray by Nasal route as needed for Opioid reversal. may repeat every 2 to 3 minutes in alternating nostrils until medical assistance becomes available [place]-3 Fatty Acids (FISH OIL) 500 MG capsule Take 1,000 mg by mouth daily. oxyCODONE-acetaminophen (PERCOCET) 5-325 MG tablet Take 1 tablet by mouth every 6 (six) hours as needed for Pain. Indications: Chronic Pain OZEMPIC 1 mg/dose injection (PEN) Inject into the skin once a week. traZODone 50 MG tablet Take 1 tablet (50 mg total) by mouth nightly at bedtime. TRUE METRIX BLOOD GLUCOSE TEST test strip TRUEplus Lancets 33G [facility] vitamin D3 (CHOLECALCIFEROL) 25 mcg tablet Take 1 tablet (25 mcg total) by mouth daily. Past Surgical History: Procedure Laterality Date BACK SURGERY x3 FOOT SURGERY Left 07/27/2022 FOOT SURGERY Right 2001 HIP ARTHROPLASTY Right 02/26/2023 KNEE ARTHROPLASTY Right 04/01/2014 PUMP INFILTRATION Left pain pump Allergies Adhesive [vinyl] [x] Total Fjdd-bn-Rsup Assessment Time: 0-15 minutes Additional Contributory Factors NONE ESS CUTTER * Roldan Rader MD - 04/17/2023 10:00 AM CST Chief Complaint: Postop Followup (DOS 02/26/23 RIGHT total hip arthroplasty) History of Present Illness: Donna Saunders is a 67-year-old female who presents to the office for Postop Followup (DOS 02/26/23 RIGHT total hip arthroplasty) Patient presents to clinic today for post-op follow up of RIGHT hip. She denies pain. She denies numbness, tingling, bruising and swelling. She is on her 6th week of physical therapy at [facility] in [place], she goes three times weekly. She denies night pain. She does still take meloxicam daily. She uses ice after physical therapy. She uses cane to ambulate in office today. She is retired. ROS: See HPI for [...] min Stress: No Stress Concern Present (02/26/2023) [facility] - Occupational Stress Questionnaire [...] mouth nightly at bedtime., Disp: , Rfl: [facility] Natural Products (OSTEO BI-FLEX ADV TRIPLE ST) Tab, Take 1 tablet by mouth 2 (two) times a day., Disp: , Rfl: naloxone (NARCAN) 4 MG/0.1ML nasal spray, 1 spray by Nasal route as needed for Opioid reversal. mayrepeat every 2 to 3 minutes in alternating nostrils until medical assistance becomes available, Disp: 1 each, Rfl: PRN [place]-3 Fatty Acids (FISH OIL) 500 MG capsule, Take 1,000 mg by mouth daily., Disp: , Rfl: OZEMPIC 1 mg/dose injection (PEN), Inject into the skin once a week., Disp: , Rfl: traZODone 50 MG tablet, Take 1 tablet (50 mg total) by mouth nightly at bedtime., Disp: , Rfl: TRUE METRIX BLOOD GLUCOSE TEST test strip, , Disp: , Rfl: TRUEplus Lancets 33G [facility], , Disp: , Rfl: vitamin D3 (CHOLECALCIFEROL) 25 mcg tablet, Take 1 tablet (25 mcg total) by mouth daily., Disp: , Rfl: Review of patient's allergies indicates: Allergen Reactions Adhesive [Vinyl] Rash and Swelling Possibly Dermabond adhesive, used after surgery Objective: Body mass index is 27.46 kg/m??. Last Recorded Weight 04/17/23 1007 Weight: 74.8 kg (165 lb) Physical exam: Constitutional: Alert and in no acute distress. Neurological: The patient was oriented to person, place, and time. Eyes: The sclera and conjunctiva were normal ENT: Hearing was normal. Neck: The appearance of the neck was normal. Cardiovascular: Normal pulses. Pulmonary: No respiratory distress. Skin: No injuries or skin lesion. Musculoskeletal: Right hip demonstrates nice range of motion. She does have a little tenderness in the groin with extremes of rotation. She is using a cane which is typical for her because of her scoliosis. Results: X-ray demonstrates a stable well-positioned right total hip arthroplasty with dual mobility. Leg lengths are symmetric Assessment: Encounter Diagnose(s) ICD-10-CM SNOMED CT(R) 1. Follow-up examination after orthopedic surgery Z09 SURGICAL FOLLOW-UP 2. 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 She is complaining of left hip pain at this point which is causing functional limitations for her. She will continue with physical therapy for strengthening for the right hip and I will see her back in a month for reevaluation. She indicates her desire to proceed with left hip replacement at that time. Follow up: Return in about 4 weeks (around 05/15/2023). ROLDAN RADER MD ESS CUTTER documented in this encounter Plan of Treatment Upcoming Encounters Date Type Department Care Team (Late st Contact Info) Description 04/29/2024 1:45 PM HARNESS CUTTER Office Visit [facility] [place] [id number] [facility] [address] [place] [address] Sujatha Solis, CHUTE FEEDER- [address] [place] [address] documented as of this encounter Visit Diagnoses Diagnosis Follow-up examination after orthopedic surgery- Primary Follow-up examination, following other surgery Status post total replacement of right hip documented in this encounter Care Teams Dog Handler Relationship Specialty Start Date End Date Asif Coto DO [address] [place] [address] PCP - General FAMILY PRACTICE 09/29/21 documented as of this encounter
--- OUTSIDE RECORDS SUMMARY | 2024-04-23 21:37 | XMS_ITS | Encounter Summary ---
Author Organization [facility] Address [address] [place] [address]. [place] [address] [place] [address] Care Team Providers Care Splicer Operator Name Role Phone MushtaqVivi hansonvarsha GANDARA Primary Care Provider [phone] Encounter Details Date Type Department Care Team (Late st Contact Info) Description 05/22/2023 Orders Only [facility] [address] [place] [address], [facility] [address] [place] [address] Roldan Rader MD [address] [place] [address] Social History Tobacco Use Types Packs/Day Years Used Date Smoking Tobacco: Former Cigarettes Smokeless Tobacco: Never Alcohol Use Standard Drinks/Week Comments Not Currently 0 (1 standard drink = 0.6 oz pur e alcohol) [facility] Utilities Answer Date Recorded In the past 12 months has [facility] [employer], gas, oil, or water [employer] threatened to shut off services in your [...] declined 02/26/2023 How often do you attend holiness or catholic serv ices? Patient declined 02/26/2023 Do you belong to any clubs o r organizations such as holiness groups, unions, fraternal or athletic groups, or [...] Recorded Patient Health Questionnaire-2 Score 0 02/26/2023 [facility] Occupat ional Health - Occupational [...] Sexual Orientation Straight 02/26/2023 1: 40 PM ELECTRONIC PUBLISHING SPECIALIST documented as of this encounter Functional Status * Are you deaf or do you have serious difficulty hearing Answer Date of Assessment Author Status No 02/26/2023 1:46 PM ELECTRONIC PUBLISHING SPECIALIST Casie Mcduffie RN Active * Are you blind or do you have serious difficulty seeing, even when wearing glasses? Answer Date of Assessment Author Status No 02/26/2023 1:46 PM ELECTRONIC PUBLISHING SPECIALIST Casie Mcduffie RN Active * Do you have serious difficulty walking or climbing stairs? Answer Date of Assessment Author Status No 02/26/2023 1:46 PM ELECTRONIC PUBLISHING SPECIALIST Casie Mcduffie RN Active * Do you have difficulty dressing or bathing? Answer Date of Assessment Author Status No 02/26/2023 1:46 PM ELECTRONIC PUBLISHING SPECIALIST Casie Mcduffie RN Active * Because of a physical, mental, or emotional condition, do you have difficulty doing errands alone such as visiting a doctor's office or shopping? Answer Date of Assessment Author Status No 02/26/2023 1:46 PM ELECTRONIC PUBLISHING SPECIALIST Casie Mcduffie RN Active documented as of this encounter Mental Status * Because of a physical, mental, or emotional condition, do you have serious difficulty concentrating, remembering, or making decisions? Answer Entry Date Author Status No 02/26/2023 1:46 PM ELECTRONIC PUBLISHING SPECIALIST Casie Mcduffie RN Active documented in this encounter Plan of Treatment Upcoming Encounters Date Type Department Care Team (Late st Contact Info) Description 04/29/2024 1:45 PM ELECTRONIC PUBLISHING SPECIALIST Office Visit [facility] [place] [id number] [address] Sujatha Solis, [facility]- [address] [place] [address] [place] [address] documented as of this encounter Visit Diagnoses Diagnosis Left hip pain- Primary Pain in joint, pelvic region and thigh documented in this encounter Care Teams Splicer Operator Relationship Specialty Start Date End Date Asif Coto DO [address] [place] [address] PCP - General FAMILY PRACTICE 09/29/21 documented as of this encounter
--- OUTSIDE RECORDS SUMMARY | 2024-04-23 21:37 | XMS_ITS | Encounter Summary ---
Author Organization [facility] Address [address] [place] [address]. [place] [address] [place] [address] Care Team Providers Care Piece Goods Packer Name Role Phone Nnamdi Asif GANDARA Primary Care Provider Encounter Details Date Type Department Care Team (Latest Contact Info) Description 06/04/2023 Travel Social History Tobacco Use Types Packs/Day Years Used Date Smoking Tobacco: Former Cigarettes Smokeless Tobacco: Never Alcohol Use Standard Drinks/Week Comments Not Currently 0 (1 standard drink = 0.6 oz pur e alcohol) [facility] Utilities Answer Date Recorded In the past 12 months has [employer], gas, oil, or water [employer] threatened to shut off services in your [...] How often do you attend baptism or confucianism serv ices? Patient declined 02/26/2023 Do you [...] Recorded Patient Health Questionnaire-2 Score 0 02/26/2023 [facility] Occupat ional Health - Occupational [...] Sexual Orientation Straight 02/26/2023 1: 40 PM FUR REPAIR INSPECTOR documented as of this encounter Functional Status * Are you deaf or do you have serious difficulty hearing Answer Date of Assessment Author Status No 02/26/2023 1:46 PM FUR REPAIR INSPECTOR Casie Mcduffie RN Active * Are you blind or do you have serious difficulty seeing, even when wearing glasses? Answer Date of Assessment Author Status No 02/26/2023 1:46 PM FUR REPAIR INSPECTOR Casie Mcduffie RN Active * Do you have serious difficulty walking or climbing stairs? Answer Date of Assessment Author Status No 02/26/2023 1:46 PM FUR REPAIR INSPECTOR Casie Mcduffie RN Active * Do you have difficulty dressing or bathing? Answer Date of Assessment Author Status No 02/26/2023 1:46 PM FUR REPAIR INSPECTOR Casie Mcduffie RN Active * Because of a physical, mental, or emotional condition, do you have difficulty doing errands alone such as visiting a doctor's office or shopping? Answer Date of Assessment Author Status No 02/26/2023 1:46 PM FUR REPAIR INSPECTOR Casie Mcduffie RN Active documented as of this encounter Mental Status * Because of a physical, mental, or emotional condition, do you have serious difficulty concentrating, remembering, or making decisions? Answer Entry Date Author Status No 02/26/2023 1:46 PM FUR REPAIR INSPECTOR Casie Mcduffie RN Active documented in this encounter Plan of Treatment Upcoming Encounters Date Type Department Care Team (Late st Contact Info) Description 04/29/2024 1:45 PM FUR REPAIR INSPECTOR Office Visit [facility] [address] [facility] 1 [place] [address] Sujatha Solis, VAULT WORKER- [address] [place] [address] [place] [address] documented as of this encounter Visit Diagnoses Not on filedocumented in this encounter Care Teams Piece Goods Packer Relationship Specialty Start Date End Date Asif Coto DO [address] [place] [address] PCP - General FAMILY PRACTICE 09/29/21 documented as of this encounter
--- OUTSIDE RECORDS SUMMARY | 2024-04-23 21:37 | XMS_ITS | Encounter Summary ---
Author Organization [facility] Address [address] [place] [address]. [place] [address] [place] [address] Care Team Providers Care Religious Healer Name Role Phone NnamdiVivivarsha GANDARA Primary Care Provider [phone] Encounter Details Date Type Department Care Team (Latest Contact Info) Description 04/17/2023 10:00 AM ENVIRONMENTAL MONITORING TECHNICIAN - 04/17/2023 11:59 PM [facility] Hospital Encounter [facility] [address] [place] [address] Roldan Rader MD [address] [place] [address] Discharge Disposition: Home or Self Care (Routine Discharge) Social History Tobacco Use Types Packs/Day Years Used Date Smoking Tobacco: Former Cigarettes Smokeless Tobacco: Never Alcohol Use Standard Drinks/Week Comments Not Currently 0 (1 standard drink = 0.6 oz pur e alcohol) [facility] Utilities Answer Date Recorded In the past 12 months has [employer], gas, oil, or water [employer] threatened to shut off services in your [...] declined 02/26/2023 How often do you attend scientology or adventism serv ices? Patient declined 02/26/2023 Do you belong to any clubs o r organizations such as scientology groups, unions, fraternal or athletic groups, or [...] Recorded Patient Health Questionnaire-2 Score 0 02/26/2023 [facility] of Occupat ional Health - Occupational [...] Sexual Orientation Straight 02/26/2023 1: 40 PM ENVIRONMENTAL MONITORING TECHNICIAN documented as of this encounter Functional Status * Are you deaf or do you have serious difficulty hearing Answer Date of Assessment Author Status No 02/26/2023 1:46 PM ENVIRONMENTAL MONITORING TECHNICIAN Casie Mcduffie RN Active * Are you blind or do you have serious difficulty seeing, even when wearing glasses? Answer Date of Assessment Author Status No 02/26/2023 1:46 PM ENVIRONMENTAL MONITORING TECHNICIAN Casie Mcduffie RN Active * Do you have serious difficulty walking or climbing stairs? Answer Date of Assessment Author Status No 02/26/2023 1:46 PM ENVIRONMENTAL MONITORING TECHNICIAN Casie Mcduffie RN Active * Do you have difficulty dressing or bathing? Answer Date of Assessment Author Status No 02/26/2023 1:46 PM ENVIRONMENTAL MONITORING TECHNICIAN Casie Mcduffie RN Active * Because of [...] total) by mouth nightly at bedtime. 05/13/2021 [facility] Natural Products (OSTEO BI-FLEX ADV TRIPLE ST) Tab Take 1 tablet by mouth 2 (two) times a day. [place]-3 Fatty Acids (FISH OIL) 500 MG capsule Take 1,000 mg by mouth daily. OZEMPIC 1 mg/dose injection (PEN) Inject into the skin once a week. 04/06/2023 TRUE METRIX BLOOD GLUCOSE TEST test strip 01/10/2021 TRUEplus Lancets 33G [facility] 01/10/2021 vitamin D3 (CHOLECALCIFEROL) 25 mcg tablet Take 1 tablet (25 mcg total) by mouth daily. baclofen (LIORESAL) 5 [...] st Contact Info) Description 04/29/2024 1:45 PM ENVIRONMENTAL MONITORING TECHNICIAN Office Visit [facility] [address] [address] Sujatha Solis, SENIOR DIRECTOR- [address] [place] [address] documented as of this encounter Procedures Procedure Name Priority Date/Time Associated Diagnosis Comments XR PELVIS AP+RT HIP 1V Routine 04/17/2023 10:14 AM ENVIRONMENTAL MONITORING TECHNICIAN Orthopedic aftercare documented in this encounter Results * XR PELVIS AP+RT HIP 1V (04/17/2023 10:14 AM ENVIRONMENTAL MONITORING TECHNICIAN) Anatomical Region Laterality Modality Pelvis, Hip Radiographic Chanel ging 04/17/2023 11:3 0 AM ENVIRONMENTAL MONITORING TECHNICIAN Impressions 04/17/2023 11:30 AM ENVIRONMENTAL MONITORING TECHNICIAN IMPRESSION: 1. ?? Status post right total hip arthroplasty, no evidence of complication. Ordered By: ROLDAN RADER Interpreted By: Jomar Graf, 04/17/2023 11:30 AM Narrative 04/17/2023 11:30 AM ENVIRONMENTAL MONITORING TECHNICIAN EXAMINATION: Pelvis and right hip EXAM DATE: [...] in this encounter Visit Diagnoses Diagnosis Orthopedic aftercare Unspecified orthopedic aftercare documented in this encounter Care Teams Religious Healer Relationship Specialty Start Date End Date Asif Coto DO [address] [place] [address] PCP - General FAMILY PRACTICE 09/29/21 documented as of this encounter
--- OUTSIDE RECORDS SUMMARY | 2024-04-23 21:37 | XMS_ITS | Encounter Summary ---
Author Organization [facility] Address [address] [place] [address]. [place] [address] [place] [address] Care Team Providers Care Supervisor Soldering Name Role Phone MushtaqVivi hansonvarsha GANDARA Primary Care Provider [phone] Reason for Visit * Reason Comments Hip Pain LEFT Encounter Details Date Type Department Care Team (Late st Contact Info) Description 05/31/2023 4:00 PM SEBD TEACHER Office Visit [facility] [address], [facility] [address] [place] [address] Roldan Rader MD [address] [place] [address] Hip Pain (LEFT) Social History Tobacco Use Types Packs/Day Years Used Date Smoking Tobacco: Former Cigarettes Smokeless Tobacco: Never Tobacco Cessation:Counseling Given: Not Answered Alcohol Use Standard Drinks/Week Comments Not Currently 0 (1 standard drink = 0.6 oz pur e alcohol) [facility] Utilities Answer Date Recorded In the past 12 months has e [employer], gas, oil, or water [employer] threatened to shut off services in your [...] declined 02/26/2023 How often do you attend moravian or jew serv ices? Patient declined 02/26/2023 Do you belong to any clubs o r organizations such as moravian groups, unions, fraternal or athletic groups, or [...] place to sleep or slept in a prison (including now)? No 02/26/2023 Comments No Sex and Gender Information Value Date Recorded Sex Assigned at Female 08/07/2022 4:17 PM CDT Legal Sex Female 8:54 PM CDT Gender Identity Female 08/07/2022 4:17 PM CDT Sexual Orientation Straight 02/26/2023 1: 40 PM SEBD TEACHER documented as of this encounter Last Filed Vital Signs Vital Sign Reading Time Taken Comments Blood Pressure - - Pulse - - Temperature - - Respiratory Rate - - Oxygen Saturation - - Inhaled Oxygen Concentration - - Weight 74.8 kg (165 lb) 05/31/2023 4:06 PM SEBD TEACHER Height 165.1 cm (5' 5 ) 05/31/2023 4:06 PM SEBD TEACHER Body Mass Index 27.46 05/31/2023 4:06 PM SEBD TEACHER documented in this encounter Functional Status * Are you deaf or do you have serious difficulty hearing Answer Date of Assessment Author Status No 02/26/2023 1:46 PM SEBD TEACHER Casie Mcduffie RN Active * Are you blind or do you have serious difficulty seeing, even when wearing glasses? Answer Date of Assessment Author Status No 02/26/2023 1:46 PM Casie Stratton RN Active * Do you have serious difficulty walking or climbing stairs? Answer Date of Assessment Author Status No 02/26/2023 1:46 PM SEBD TEACHER Casie Mcduffie RN Active * Do you have difficulty dressing or bathing? Answer Date of Assessment Author Status No 02/26/2023 1:46 PM SEBD TEACHER Casie Mcduffie RN Active * Because of [...] encounter Progress Notes * KATIE Rees - 05/31/2023 4:00 PM CST Donna is a 67-year-old female who presents for Hip Pain (LEFT) Patient states that [...] hip. She completed therapy for RIGHT hip. No additional nursing task documentation needed. Vitals: 05/31/23 1606 Weight: 74.8 kg (165 lb) Height: 1.651 m (5' 5 ) Current Outpatient Medications Medication Sig Eszopiclone 3 MG Tab Take 3 mg by mouth nightly at bedtime. levothyroxine (SYNTHROID) 75 MCG tablet Take 1 tablet (75 mcg total) by mouth every morning. pantoprazole EC (PROTONIX) 40 MG tablet Take 1 tablet (40 mg total) by mouth daily. amLODIPine 10 MG tablet Take 1 tablet [...] needed. HYDROMORPHONE HCL IJ Via internal pump lisinopril [...] mg total) by mouth nightly at bedtime. [facility] Natural Products (OSTEO BI-FLEX ADV TRIPLE ST) Tab Take 1 tablet by mouth 2 (two) times a day. naloxone (NARCAN) 4 MG/0.1ML nasal spray 1 spray by Nasal route as needed for Opioid reversal. may repeat every 2 to 3 minutes in alternating nostrils until medical assistance becomes available [place]-3 Fatty Acids (FISH OIL) 500 MG capsule Take 1,000 mg by mouth daily. OZEMPIC 1 mg/dose injection (PEN) Inject into the skin once a week. traZODone 50 MG tablet Take 1 tablet (50 mg total) by mouth nightly at bedtime. TRUE METRIX BLOOD GLUCOSE TEST test strip TRUEplus Lancets 33G [facility] vitamin D3 (CHOLECALCIFEROL) 25 mcg tablet Take 1 tablet (25 mcg total) by mouth daily. Past Surgical History: Procedure Laterality Date BACK SURGERY x3 FOOT SURGERY Left 07/27/2022 FOOT SURGERY Right 2001 HIP ARTHROPLASTY Right 02/26/2023 KNEE ARTHROPLASTY Right 04/01/2014 PUMP INFILTRATION Left pain pump Allergies Adhesive [vinyl] [x] Total Yxfk-[id number]-Pubk Assessment Time: 0-15 minutes Additional Contributory Factors NONE TEACHER * Roldan Rader MD - 05/31/2023 4:00 PM CST Chief Complaint: Hip Pain (LEFT) History of [...] min Stress: No Stress Concern Present (02/26/2023) [employer] [place] [facility] Occupational [employer] - Occupational Stress Questionnaire Feeling of Stress : Not at all Social Connections: Unknown (02/26/2023) Social Connection and Isolation Panel [NHANES] Frequency of Communication with Friends and Family: Patient declined Frequency of Social Gatherings with Friends and Family: Patient declined Attends Synagogue Services: Patient declined Active Member of Clubs [...] nightly at bedtime., Disp: , Rfl: [facility] Natural Products (OSTEO BI-FLEX ADV TRIPLE ST) Tab, Take 1 tablet by mouth 2 (two) times a day., Disp: , Rfl: naloxone (NARCAN) 4 MG/0.1ML nasal spray, 1 spray by Nasal route as needed for Opioid reversal. mayrepeat every 2 to 3 minutes in alternating nostrils until medical assistance becomes available, Disp: 1 each, Rfl: PRN [place]-3 Fatty Acids (FISH OIL) 500 MG capsule, [...] Disp: , Rfl: TRUEplus Lancets 33G [facility], , Disp: , Rfl: vitamin D3 (CHOLECALCIFEROL) [...] 06/21/23 Follow up: Return for Post-Op. 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
--- OUTSIDE RECORDS SUMMARY | 2024-04-23 21:37 | XMS_ITS | Encounter Summary ---
Author Organization [facility] Address [address] [place] [address]. [place] [address] [place] [address] Care Team Providers Care Model And Dye Person Name Role Phone MushtaqAsif hanson Primary Care Provider [phone] Reason for Visit * Reason Onset Date Comments Refill Request 06/28/2023 Encounter Details Date Type Department Care Team (Late st Contact Info) Description 06/28/2023 Telephone [facility] [place] [id number] [facility] [address] [place] [address] Roldan Rader MD [address] [id number] Refill Request Social History Tobacco Use Types Packs/Day Years Used Date Smoking Tobacco: Former Cigarettes Smokeless Tobacco: Never Alcohol Use Standard Drinks/Week Comments Not Currently 0 (1 standard drink = 0.6 oz pur e alcohol) Occassionaly. [facility] Utilities Answer Date Recorded In the past 12 months has [employer], gas, oil, or water [employer] ? threatened to shut off services in your [...] declined 02/26/2023 How often do you attend methodist or catholic serv ices? Patient declined 02/26/2023 Do you belong to any clubs o r organizations such as methodist groups, unions, fraternal or athletic groups, or [...] Patient Health Questionnaire-2 Score 0 02/26/2023 [facility] of Occupat ional Health - [...] Sexual Orientation Straight 02/26/2023 1: 40 PM RETANNED LEATHER ROLLER documented as of this encounter Functional Status [...] Progress Notes * Power Goldsmith RN - 06/28/2023 5:25 PM CDT Spoke with patient regarding drainage. She reports yellowish color to drainage from around the bandage on her hip. Discussed with Dr Rader who ordered an antibiotic. Patient instructed on antibiotic and will re-evaluate on Sunday at her post op appointment. * Maylin Dougherty MA - 06/28/2023 5:13 PM CDT A called patient to inform her medication had been refilled. Patient had questions about drainagefrom surgical incision, call transferred to UNA Steve. * Power Goldsmith RN - 06/28/2023 2:50 PM CDT ----- Message from Adamaris Waddell CNA sent at 06/28/2023 2:48 PM CDT ----- She is needing a refill on her pain medication. 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
--- OUTSIDE RECORDS SUMMARY | 2024-04-23 21:37 | XMS_ITS | Encounter Summary ---
Author Organization [facility] Address [address] [place] [address]. [place] [address] [place] [address] Care Team Providers Care Commercial Decorator Name Role Phone MushtaqAsif hasnon Primary Care Provider [phone] Reason for Visit * Reason Onset Date Comments Surgery Follow Up 06/25/2023 Concern for in fection Encounter Details Date Type Department Care Team (Late st Contact Info) Description 06/25/2023 Telephone [facility] [place] [address] [facility] 1 [place] [address] Sujatha Solis, [facility] [address] [facility] [place] [place] [address] Surgery Follow Up (Concern for infection) Social History Tobacco Use Types Packs/Day Years Used Date Smoking Tobacco: Former Cigarettes Smokeless Tobacco: Never Alcohol Use Standard Drinks/Week Comments Not Currently 0 (1 standard drink = 0.6 oz pur e alcohol) Occassionaly. [facility] Utilities [...] declined 02/26/2023 How often do you attend druze or latter-day serv ices? Patient declined 02/26/2023 Do you belong to any clubs o r organizations such as druze groups, unions, fraternal or athletic groups, or [...] Recorded Patient Health Questionnaire-2 Score 0 02/26/2023 [facility] [place] of Occupat ional Health - Occupational Stress [...] place to sleep or slept in a jail (including now)? No 02/26/2023 Comments No Sex and Gender Information Value Date Recorded Sex Assigned at Female 08/07/2022 4:17 PM CDT Legal Sex Female 8:54 PM CDT Gender Identity Female 08/07/2022 4:17 PM CDT Sexual Orientation Straight 02/26/2023 1: 40 PM CHECKERER HAND documented as of this encounter Functional Status [...] Progress Notes * Power Goldsmith RN - 06/25/2023 9:41 AM CDT Patient called in to report drainage to LEFT hip incision. She is status post LEFT HITESH on 06/21/23. She reports a lot of drainage and a yellow area puss pocket on side of incision line. Advised to come in for evaluation. Appointment scheduled and pt v/u. documented in this encounter Plan of Treatment Upcoming Encounters Date Type Department Care Team (Late st Contact Info) Description 04/29/2024 1:45 PM CHECKERER HAND Office Visit [facility] [place] [address] [place] [address] Sujatha Solis, DESIZING PAD OPERATOR- [address] [facility] [place] [place] [address] documented as of this encounter Visit Diagnoses Not on filedocumented in this encounter Care Teams Commercial Decorator Relationship Specialty Start Date End Date Asif Coto DO [address] [place] [address] PCP - General FAMILY PRACTICE 09/29/21 documented as of this encounter
--- OUTSIDE RECORDS SUMMARY | 2024-04-23 21:37 | XMS_ITS | Encounter Summary ---
Author Organization [facility] Address [address] [place] [address]. [place] [address] [place] [address] Care Team Providers Care Fitness And Wellness Manager Name Role Phone Nnamdi Asif GANDARA Primary Care Provider [phone] Encounter Details Date Type Department Care Team (Latest Contact Info) Description 04/17/2023 Travel Social History Tobacco Use Types Packs/Day Years Used Date Smoking Tobacco: Former Cigarettes Smokeless Tobacco: Never Alcohol Use Standard Drinks/Week Comments Not Currently 0 (1 standard drink = 0.6 oz pur e alcohol) [facility] Utilities Answer Date Recorded In the past 12 months has [employer], gas, oil, or water [employer] threatened to shut off services in your [...] declined 02/26/2023 How often do you attend jew or hoahaoism serv ices? Patient declined 02/26/2023 Do you belong to any clubs o r organizations such as jew groups, unions, fraternal or athletic groups, or [...] Recorded Patient Health Questionnaire-2 Score 0 02/26/2023 [facility] of Occupat ional Health - Occupational [...] Sexual Orientation Straight 02/26/2023 1: 40 PM OILING MACHINE OPERATOR documented as of this encounter Functional Status * Are you deaf or do you have serious difficulty hearing Answer Date of Assessment Author Status No 02/26/2023 1:46 PM OILING MACHINE OPERATOR Casie Mcduffie RN Active * Are you blind or do you have serious difficulty seeing, even when wearing glasses? Answer Date of Assessment Author Status No 02/26/2023 1:46 PM OILING MACHINE OPERATOR Casie Mcduffie RN Active * Do you have serious difficulty walking or climbing stairs? Answer Date of Assessment Author Status No 02/26/2023 1:46 PM OILING MACHINE OPERATOR Casie Mcduffie RN Active * Do you have difficulty dressing or bathing? Answer Date of Assessment Author Status No 02/26/2023 1:46 PM OILING MACHINE OPERATOR Casie Mcduffie RN Active * Because of a physical, mental, or emotional condition, do you have difficulty doing errands alone such as visiting a doctor's office or shopping? Answer Date of Assessment Author Status No 02/26/2023 1:46 PM OILING MACHINE OPERATOR Casie Mcduffie RN Active documented as of this encounter Mental Status * Because of a physical, mental, or emotional condition, do you have serious difficulty concentrating, remembering, or making decisions? Answer Entry Date Author Status No 02/26/2023 1:46 PM OILING MACHINE OPERATOR Casie Mcduffie RN Active documented in this encounter Plan of Treatment Upcoming Encounters Date Type Department Care Team (Late st Contact Info) Description 04/29/2024 1:45 PM OILING MACHINE OPERATOR Office Visit [facility] [address] [facility] [address] [place] [address] Sujatha Solis, TAFE LECTURER- [address] [place] [address] [place] [address] documented as of this encounter Visit Diagnoses Not on filedocumented in this encounter Care Teams Fitness And Wellness Manager Relationship Specialty Start Date End Date Asif Coto DO [address] [place] [address] PCP - General FAMILY PRACTICE 09/29/21 documented as of this encounter
--- OUTSIDE RECORDS SUMMARY | 2024-04-23 21:37 | XMS_ITS | Encounter Summary ---
Author Organization [facility] Address [address] [place] [address]. [place] [address] [place] [address] Care Team Providers Care Appraiser Land Name Role Phone NnamdiAsif Primary Care Provider [phone] Encounter Details Date Type Department Care Team (Latest Contact Info) Description 06/04/2023 2:58 PM DISPUTE RESOLUTION ANALYST - 06/04/2023 11:59 PM [facility] Hospital Encounter [facility] [address] [facility] [place] [address] Roldan Rader MD [address] [place] [address] Discharge Disposition: Home or Self Care (Routine Discharge) Social History Tobacco Use Types Packs/Day Years Used Date Smoking Tobacco: Former Cigarettes Smokeless Tobacco: Never Alcohol Use Standard Drinks/Week Comments Not Currently 0 (1 standard drink = 0.6 oz pur e alcohol) [facility] Utilities Answer Date Recorded In the past 12 months has [facility] [employer], gas, oil, or water [employer] threatened to shut off services in your [...] How often do you attend druze or anabaptist serv ices? Patient declined 02/26/2023 Do you [...] Recorded Patient Health Questionnaire-2 Score 0 02/26/2023 [facility] - [...] Sexual Orientation Straight 02/26/2023 1: 40 PM DISPUTE RESOLUTION ANALYST documented as of this encounter Functional Status * Are you deaf or do you have serious difficulty hearing Answer Date of Assessment Author Status No 02/26/2023 1:46 PM DISPUTE RESOLUTION ANALYST Casie Mcduffie RN Active * Are you blind or do you have serious difficulty seeing, even when wearing glasses? Answer Date of Assessment Author Status No 02/26/2023 1:46 PM DISPUTE RESOLUTION ANALYST Casie Mcduffie RN Active * Do you have serious difficulty walking or climbing stairs? Answer Date of Assessment Author Status No 02/26/2023 1:46 PM DISPUTE RESOLUTION ANALYST Casie Mcduffie RN Active * Do you have difficulty dressing or bathing? Answer Date of Assessment Author Status No 02/26/2023 1:46 PM DISPUTE RESOLUTION ANALYST Casie Mcduffie RN Active * Because of [...] total) by mouth nightly at bedtime. 05/13/2021 [facility] Natural Products (OSTEO BI-FLEX ADV TRIPLE ST) Tab Take 1 tablet by mouth 2 (two) times a day. [place]-3 Fatty Acids (FISH OIL) 500 MG capsule [...] Day Supply 30 tablet 06/22/2023 06/28/19 24 traZODone 50 MG tablet Take 1 tablet (50 mg total) by mouth nightly at bedtime. 05/12/2021 06/21/19 24 documented as of this encounter Plan of Treatment Upcoming Encounters Date Type Department Care Team (Late st Contact Info) Description 04/29/2024 1:45 PM DISPUTE RESOLUTION ANALYST Office Visit [facility] [address] [address] Sujatha Solis, [facility]- [address] [facility], [place] [address] documented as of this encounter Procedures Procedure Name Priority Date/Time Associated Diagnosis Comments URINALYSIS WI REFLEX TO CULTURE Routine 06/04/2023 3:20 PM DISPUTE RESOLUTION ANALYST Pre-op evaluation Primary osteoarthritis of left hip BASIC METABOLIC PANEL Routine 06/04/2023 3:18 PM DISPUTE RESOLUTION ANALYST Pre-op evaluation Primary osteoarthritis of left hip CBC W/DIFF AUTOMATED Routine 06/04/2023 3:18 PM DISPUTE RESOLUTION ANALYST Pre-op evaluation Chronic left hip pain MRSA SCREENING Routine 06/04/2023 3:13 PM DISPUTE RESOLUTION ANALYST Pre-op evaluation Primary osteoarthritis of left hip documented in this encounter Results * (ABNORMAL) URINALYSIS WI REFLEX TO CULTURE (06/04/2023 3:20 PM DISPUTE RESOLUTION ANALYST) COLOR (U) YELLOW 06/04/2023 3:46 PM DISPUTE RESOLUTION ANALYST [facility] TRANSPARENCY CLEAR 06/04/2023 3:46 PM DISPUTE RESOLUTION ANALYST [facility] SPECIFIC GRAVITY (U) 1.025 1.000 - 1.025 06/04/2023 3:46 PM DISPUTE RESOLUTION ANALYST [facility] U PH 6.0 5.0 - 8.0 06/04/2023 3:46 PM DISPUTE RESOLUTION ANALYST [facility] LEUKOCYTES (U) NEGATIVE NEGATIVE 06/04/2023 3:46 PM DISPUTE RESOLUTION ANALYST [facility] NITRITES NEGATIVE NEGATIVE 06/04/2023 3:46 PM DISPUTE RESOLUTION ANALYST [facility] PROTEIN RANDOM (U) NEGATIVE NEGATIVE 06/04/2023 3:46 PM DISPUTE RESOLUTION ANALYST [facility] GLUCOSE (U) NEGATIVE NEGATIVE 06/04/2023 3:46 PM DISPUTE RESOLUTION ANALYST [facility] KETONES MG/DL (U) TRACE(A) NEGATIVE 06/04/2023 3:46 PM DISPUTE RESOLUTION ANALYST [facility] UROBILINOGEN 0.2 <1.0 EU/DL 06/04/2023 3:46 PM [facility] BILIRUBIN (U) NEGATIVE NEGATIVE 06/04/2023 3:46 PM [facility] BLOOD (U) NEGATIVE NEGATIVE 06/04/2023 3:46 PM [facility] WBC/HPF 0-5 0 - 5 /HPF 06/04/2023 3:46 PM [facility] RBC/HPF 5-10(A) 0 - 5 /HPF 06/04/2023 3:46 PM [facility] MUCUS PRESENT 06/04/2023 3:46 PM [facility] REFLEX URINE CULTURE: NOT INDICATED 06/04/2023 3:46 PM [facility] URINE SPECIMEN OBTAINED BY CLEAN CATCH PROCEDURE / Unknown 06/04/2023 3:20 PM DISPUTE RESOLUTION ANALYST Roldan Rader MD URINE ORDERABLES Final Result [facility] [address] [employer] [place] [address], * (ABNORMAL) BASIC METABOLIC PANEL (06/04/2023 3:18 PM DISPUTE RESOLUTION ANALYST) SODIUM S/P/B 141 136 - 145 MMOL/L 06/04/2023 3:34 PM [facility] POTASSIUM S/P/B 4.0 3.5 - 5.1 MMOL/L 06/04/2023 3:34 PM [facility] CHLORIDE S/P/B 104 98 - 107 MMOL/L 06/04/2023 3:34 PM [facility] CO2 28.0 21.0 - 32.0 MMOL/L 06/04/2023 3:34 PM [facility] GLUCOSE 85 70 - 99 MG/DL 06/04/2023 3:34 PM [facility] Comment: FASTING GLUCOSE 100 TO 125 MG/DL IS CONSISTENT WITH IMPAIRED FASTING GLUCOSE. FASTING GLUCOSE >125 MG/DL IS CONSISTENT WITH DIABETES. RANDOM GLUCOSE >200 MG/DL WITH HYPERGLYCEMIC SYMPTOMS IS CONSISTENT WITH DIABETES. PER ADA GUIDELINES BUN 12 6 - 24 MG/DL 06/04/2023 3:34 PM DISPUTE RESOLUTION ANALYST [facility] CREATININE S/P/B 0.95 0.55 - 1.02 MG/DL 06/04/2023 3:34 PM [facility] CALCIUM S/P/B 9.6 8.4 - 10.5 MG/DL 06/04/2023 3:34 PM [facility] ANION GAP 9.0 5.0 - 15.0 MMOL/L 06/04/2023 3:34 PM DISPUTE RESOLUTION ANALYST [facility] OSMOLALITY (CALC) 291 MOSM/KG 024 3:34 PM [facility] Comment:REFERENCE RANGE NOT ESTABLISHED GFR ESTIMATE 65(L) >89 ML/MIN/1. 73 M2 06/04/2023 3:34 PM [facility] GFR NOTES GFR REFERENCE S: 06/04/2023 3:34 PM [facility] Comment: THE ESTIMATED GFR [...] FAILURE: <15 ml/min/1.73 m2 06/04/2023 3:18 PM DISPUTE RESOLUTION ANALYST us Roldan Rader MD LABORATORY Final Result [facility] [address] [place] [address], * (ABNORMAL) CBC W/DIFF AUTOMATED (06/04/2023 3:18 PM DISPUTE RESOLUTION ANALYST) WBC 8.61 4.00 - 10.80 x10'3/uL 06/04/2023 3:38 PM DISPUTE RESOLUTION ANALYST [facility] RBC 5.01 4.10 - 5.40 x10'6/uL 06/04/2023 3:38 PM DISPUTE RESOLUTION ANALYST [facility] HGB 14.0 12.0 - 16.0 G/DL 06/04/2023 3:38 PM DISPUTE RESOLUTION ANALYST [facility] HCT 43.0 36.0 - 47.0 % 06/04/2023 3:38 PM DISPUTE RESOLUTION ANALYST [facility] MCV 85.8 78.0 - 100.0 FL 06/04/2023 3:38 PM DISPUTE RESOLUTION ANALYST [facility] MCH 27.9 27.0 - 31.0 PG 06/04/2023 3:38 PM [facility] MCHC 32.6(L) 33.0 - 36.0 G/DL 06/04/2023 3:38 PM [facility] RDW 13.2 11.5 - 14.5 % 06/04/2023 3:38 PM [facility] PLT 347 150 - 350 x10'3/uL 06/04/2023 3:38 PM [facility] MPV 9.9 7.4 - 10.4 FL 06/04/2023 3:38 PM [facility] CBC COMMENT NORMAL REFERENCE RANGE NOT ESTABLISHED FOR THE PROPORTIONAL LEUKOCYTE DIFFERENTIAL. 06/04/2023 3:38 PM DISPUTE RESOLUTION ANALYST [facility] NEUTROPHILS % 67.6 % 06/04/2023 3:38 PM DISPUTE RESOLUTION ANALYST [facility] LYMPHOCYTES % 23.3 % 06/04/2023 3:38 PM DISPUTE RESOLUTION ANALYST [facility] MONOCYTES % 6.6 % 06/04/2023 3:38 PM DISPUTE RESOLUTION ANALYST [facility] EOSINOPHILS % 1.7 % 06/04/2023 3:38 PM DISPUTE RESOLUTION ANALYST [facility] BASOPHILS % 0.6 % 06/04/2023 3:38 PM DISPUTE RESOLUTION ANALYST [facility] IMMATURE GRANS % 0.2 % 06/04/19 3:38 PM DISPUTE RESOLUTION ANALYST [facility] NRBC 0.0 % 06/04/2023 3:38 PM DISPUTE RESOLUTION ANALYST [facility] ABS. NEUTROPHILS 5.81 1.60 - 8.30 x10'3/uL 06/04/2023 3:38 PM DISPUTE RESOLUTION ANALYST [facility] ABS. LYMPHOCYTES 2.01 0.80 - 4.70 x10'3/uL 06/04/2023 3:38 PM DISPUTE RESOLUTION ANALYST [facility] ABS. MONOCYTES 0.57 0.00 - 1.50 x10'3/uL 06/04/2023 3:38 PM DISPUTE RESOLUTION ANALYST [facility] ABS. EOSINOPHILS 0.15 0.00 - 0.40 x10'3/uL 06/04/2023 3:38 PM DISPUTE RESOLUTION ANALYST [facility] ABS. BASOPHILS 0.05 0.00 - 0.20 x10'3/uL 06/04/2023 3:38 PM DISPUTE RESOLUTION ANALYST [facility] ABS. IMMATURE GRANULOCYTES 0.02 0.00 - 0.03 x10'3/uL 06/04/2023 3:38 PM DISPUTE RESOLUTION ANALYST [facility] ABS. NUCLEATED RBC'S 0.00 0.00 x10'3/uL 06/04/2023 3:38 PM DISPUTE RESOLUTION ANALYST [facility] 06/04/2023 3:18 PM DISPUTE RESOLUTION ANALYST Roldan Rader MD LABORATORY Final Result [facility] [address] [place] [address], * MRSA SCREENING (06/04/2023 3:13 PM DISPUTE RESOLUTION ANALYST) SOURCE RESPIRATORY, NOSE 06/04/2023 3:02 PM DISPUTE RESOLUTION ANALYST [facility] MRSA BY PCR NASAL METHICILLIN RESISTANT STAPH AUREUS NOT DETECTED METHICILLIN RESISTANT STAPH AUREUS NOT DETECTED 06/06/2023 11:07 AM DISPUTE RESOLUTION ANALYST [facility] NASAL STRUCTURE / Unknown 06/04/2023 3:13 PM DISPUTE RESOLUTION ANALYST Roldan Rader MD MICROBIOLOGY - GENERAL ORDERAB LES Final Result [facility] [address] [place] [address], [place] [phone] [id number] [facility] [address] [place] [address], documented in this encounter Visit Diagnoses Diagnosis Pre-op evaluation Preoperative examination, unspecified Chronic left hip pain Pain in joint, pelvic region and thigh Primary osteoarthritis of left hip Primary localized osteoarthrosis, pelvic region and thigh documented in this encounter Care Teams Appraiser Land Relationship Specialty Start Date End Date Asif Coto DO [address] [place] [address] PCP - General FAMILY PRACTICE 09/29/21 documented as of this encounter
--- OUTSIDE RECORDS SUMMARY | 2024-04-23 21:37 | XMS_ITS | Encounter Summary ---
Author Organization [facility] Address [address] [place] [address]. [place] [address] [place] [address] Care Team Providers Care Marine Cargo Surveyor Name Role Phone Nnamdi Asif GANDARA Primary Care Provider Reason for Visit * Reason Onset Date Comments Refill Request 05/09/2023 Encounter Details Date Type Department Care Team (Late st Contact Info) Description 05/09/[address] [facility] [address], [facility] 1 [place] [address] Sujatha Solis, [facility] [address] [facility] [place] [id number] Refill Request Social History Tobacco Use Types Packs/Day Years Used Date Smoking Tobacco: Former Cigarettes Smokeless Tobacco: Never Alcohol Use Standard Drinks/Week Comments Not Currently 0 (1 standard drink = 0.6 oz pur e alcohol) [facility] Utilities Answer Date Recorded In the past 12 months has [employer], gas, oil, or water [employer] threatened to shut off services in your [...] How often do you attend rastafari or gnosticist serv ices? Patient declined 02/26/2023 [...] place to sleep or slept in a custodial (including now)? No 02/26/2023 Comments No Sex and Gender Information Value Date Recorded Sex Assigned at Female 08/07/2022 4:17 PM CDT Legal Sex Female 8:54 PM CDT Gender Identity Female 08/07/2022 4:17 PM CDT Sexual Orientation Straight 02/26/2023 1: 40 PM SUPERVISORY CBP OFFICER documented as of this encounter Functional Status * Are you deaf or do you have serious difficulty hearing Answer Date of Assessment Author Status No 02/26/2023 1:46 PM SUPERVISORY CBP OFFICER Casie Mcduffie RN Active * Are you blind or do you have serious difficulty seeing, even when wearing glasses? Answer Date of Assessment Author Status No 02/26/2023 1:46 PM SUPERVISORY CBP OFFICER Casie Mcduffie RN Active * Do you have serious difficulty walking or climbing stairs? Answer Date of Assessment Author Status No 02/26/2023 1:46 PM SUPERVISORY CBP OFFICER Casie Mcduffie RN Active * Do you have difficulty dressing or bathing? Answer Date of Assessment Author Status No 02/26/2023 1:46 PM SUPERVISORY CBP OFFICER Casie Mcduffie RN Active * Because of a physical, mental, or emotional condition, do you have difficulty doing errands alone such as visiting a doctor's office or shopping? Answer Date of Assessment Author Status No 02/26/2023 1:46 PM SUPERVISORY CBP OFFICER Casie Mcduffie RN Active documented as of this encounter Mental Status * Because of a physical, mental, or emotional condition, do you have serious difficulty concentrating, remembering, or making decisions? Answer Entry Date Author Status No 02/26/2023 1:46 PM SUPERVISORY CBP OFFICER Casie Mcduffie RN Active documented in this encounter Progress Notes * Trinity Griffin RN - 05/09/2023 10:17 AM CST RN attempted to contact patient and left message to inform her that refill has been sent in to pharmacy for meloxicam and can be picked up later today. RVISORY CBP OFFICER * Trinity Griffin RN - 05/09/2023 10:09 AM CST ----- Message from Adamaris Waddell CNA sent at 05/09/2023 9:20 AM SUPERVISORY CBP OFFICER ----- [facility] [place] she is needing a refill [place] Meloxicam, RVISORY CBP OFFICER documented in this encounter Plan of Treatment Upcoming Encounters Date Type Department Care Team (Late st Contact Info) Description 04/29/2024 1:45 PM SUPERVISORY CBP OFFICER Office Visit [facility] [place] [address] [facility] 1 [place] [address] Sujatha Solis, LAUNDRY TE[facility]- [address] [place] [address] documented as of this encounter Visit Diagnoses Not on filedocumented in this encounter Care Teams Marine Cargo Surveyor Relationship Specialty Start Date End Date Asif Coto DO [address] [place] [address] PCP - General FAMILY PRACTICE 09/29/21 documented as of this encounter
--- OUTSIDE RECORDS SUMMARY | 2024-04-23 21:37 | XMS_ITS | Encounter Summary ---
Author Organization [facility] Address [address] [place] [address]. [place] [address] [place] [address] Care Team Providers Care Traffic Safety Administrator Name Role Phone MushtaqVivi hansonvarsha GANDARA Primary Care Provider [phone] Encounter Details Date Type Department Care Team (Late st Contact Info) Description 05/09/2023 Orders Only [facility] [place] [id number] [facility] 1 [place] [address] Sujatha Solis, [facility] [address] [place] [address] Social History Tobacco Use Types Packs/Day Years Used Date Smoking Tobacco: Former Cigarettes Smokeless Tobacco: Never Alcohol Use Standard Drinks/Week Comments Not Currently 0 (1 standard drink = 0.6 oz pur e alcohol) [facility] Utilities Answer Date Recorded In the past 12 months has [facility] [employer], gas, oil, or water [employer] threatened to shut off services in your [...] declined 02/26/2023 How often do you attend advent or taoist serv ices? Patient declined 02/26/2023 Do you belong to any clubs o r organizations such as advent groups, unions, fraternal or athletic groups, or [...] place to sleep or slept in a snf (including now)? No 02/26/2023 Comments No Sex and Gender Information Value Date Recorded Sex Assigned at Female 08/07/2022 4:17 PM CDT Legal Sex Female 8:54 PM CDT Gender Identity Female 08/07/2022 4:17 PM CDT Sexual Orientation Straight 02/26/2023 1: 40 PM RIGGING ENGINEER documented as of this encounter Functional Status * Are you deaf or do you have serious difficulty hearing Answer Date of Assessment Author Status No 02/26/2023 1:46 PM RIGGING ENGINEER Casie Mcduffie RN Active * Are you blind or do you have serious difficulty seeing, even when wearing glasses? Answer Date of Assessment Author Status No 02/26/2023 1:46 PM RIGGING ENGINEER Casie Mcduffie RN Active * Do you have serious difficulty walking or climbing stairs? Answer Date of Assessment Author Status No 02/26/2023 1:46 PM RIGGING ENGINEER Casie Mcduffie RN Active * Do you have difficulty dressing or bathing? Answer Date of Assessment Author Status No 02/26/2023 1:46 PM RIGGING ENGINEER Casie Mcduffie RN Active * Because of a physical, mental, or emotional condition, do you have difficulty doing errands alone such as visiting a doctor's office or shopping? Answer Date of Assessment Author Status No 02/26/2023 1:46 PM RIGGING ENGINEER Casie Mcduffie RN Active documented as of this encounter Mental Status * Because of a physical, mental, or emotional condition, do you have serious difficulty concentrating, remembering, or making decisions? Answer Entry Date Author Status No 02/26/2023 1:46 PM RIGGING ENGINEER Casie Mcduffie RN Active documented in this encounter Plan of Treatment Upcoming Encounters Date Type Department Care Team (Late st Contact Info) Description 04/29/2024 1:45 PM RIGGING ENGINEER Office Visit [address] [address] Sujatha Solis, [facility]- [address] [place] [address] [place] [address] documented as of this encounter Visit Diagnoses Diagnosis Status post total replacement of right hip- Primary Primary osteoarthritis of left knee Primary localized osteoarthrosis, lower leg Primary osteoarthritis of left hip Primary localized osteoarthrosis, pelvic region and thigh documented in this encounter Care Teams Traffic Safety Administrator Relationship Specialty Start Date End Date Asif Coto DO [address] [place] [address] PCP - General FAMILY PRACTICE 09/29/21 documented as of this encounter
--- OUTSIDE RECORDS SUMMARY | 2024-04-23 21:37 | XMS_ITS | Encounter Summary ---
Author Organization [facility] Address [address] [place] [address]. 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 Procedures Case request operating room: LEFT total hip arthroplasty Depuy notified, Labs to be done at [facility], other side done 02/26/23 Roldan Rader MD [address] [place] [id number] Phone: tel: fax: Referral ID Status Reason Start Date Expiration Date V isits Requested Visits Authorized [id number] New Request 06/01/2023 06/01/2024 1 1 CE ADMIN Encounter Details Date Type Department Care Team (Late st Contact Info) Description 06/01/2023 Prep for Procedure [facility] [address], [facility] 1 [place] [address] Roldan Rader MD [address] [place] [id number] Social History Tobacco Use Types Packs/Day Years Used Date Smoking Tobacco: Former Cigarettes Smokeless Tobacco: Never Alcohol Use Standard Drinks/Week Comments Not Currently 0 (1 standard drink = 0.6 oz pur e alcohol) [facility] Utilities Answer Date Recorded In the [...] declined 02/26/2023 How often do you attend muslim or muslim serv ices? Patient declined 02/26/2023 Do you belong to any clubs o r organizations such as muslim groups, unions, fraternal or athletic groups, or [...] Recorded Patient Health Questionnaire-2 Score 0 02/26/2023 [facility] Occup[facility] ional Health - Occupational Stress [...] Sexual Orientation Straight 02/26/2023 1: 40 PM OFFICE ADMIN documented as of this encounter Functional Status * Are you deaf or do you have serious difficulty hearing Answer Date of Assessment Author Status No 02/26/2023 1:46 PM OFFICE ADMIN Casie Mcduffie RN Active * Are you blind or do you have serious difficulty seeing, even when wearing glasses? Answer Date of Assessment Author Status No 02/26/2023 1:46 PM OFFICE ADMIN Casie Mcduffie RN Active * Do you have serious difficulty walking or climbing stairs? Answer Date of Assessment Author Status No 02/26/2023 1:46 PM OFFICE ADMIN Casie Mcduffie RN Active * Do you have difficulty dressing or bathing? Answer Date of Assessment Author Status No 02/26/2023 1:46 PM OFFICE ADMIN Casie Mcduffie RN Active * Because of a physical, mental, or emotional condition, do you have difficulty doing errands alone such as visiting a doctor's office or shopping? Answer Date of Assessment Author Status No 02/26/2023 1:46 PM OFFICE ADMIN Casie Mcduffie RN Active documented as of this encounter Mental Status * Because of a physical, mental, or emotional condition, do you have serious difficulty concentrating, remembering, or making decisions? Answer Entry Date Author Status No 02/26/2023 1:46 PM OFFICE ADMIN Casie Mcduffie RN Active documented in this encounter Progress Notes * Valorie Griffin RN - 06/01/2023 9:35 AM CSTAddended by: VALORIE GRIFFIN on: 06/14/2023 10:23 AM Modules accepted: Orders CE ADMIN documented in this encounter Plan of Treatment Upcoming Encounters Date Type Department Care Team (Late st Contact Info) Description 04/29/2024 1:45 PM OFFICE ADMIN Office Visit [facility] [address], [address] [place] [address] Sujatha Solis, CUSTOMER ACCOUNTS ADVISOR- [address] [place] [address] Scheduled Orders Name Type Priority Associated Diagnoses Orde r Schedule Case request operating room: LEFT total hip arthroplasty Depuy notified, Labs to be done at [facility], other side done 02/26/23 Case Request Routine 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
--- OUTSIDE RECORDS SUMMARY | 2024-04-23 21:38 | XMS_ITS | Encounter Summary ---
Author Organization [facility] Address [address] [place] [address]. [place] [address] [place] [address] Care Team Providers Care Robotics Engineer Name Role Phone MushtaqAsif hanson Primary Care Provider [phone] Encounter Details Date Type Department Care Team (Late Contact Info) Description 01/09/2022 [facility] [address] [place] [address] Scanned, Doc [facility] Social History Tobacco Use Types Packs/Day Years Used Date Smoking Tobacco: Never Smokeless Tobacco: Never Alcohol Use Standard Drinks/Week Comments Not Currently 0 (1 standard drink = 0.6 oz pur e alcohol) Comments Unknown Sex and Gender Information Value Date Recorded Sex Assigned at Female 08/07/2022 4:17 PM CDT Legal Sex Female 8:54 PM CDT Gender Identity Female 08/07/2022 4:17 PM CDT Sexual Orientation Straight 02/26/2023 1: 40 PM [employer] documented as of this encounter Plan of Treatment Upcoming Encounters Date Type Department Care Team (Late Contact Info) Description 04/29/2024 1:45 PM [employer] Office Visit [address] [address] Sujatha Solis, MEDICAL DATA ENTRY CLERK- [address] [facility] [place] [address] documented as of this encounter Visit Diagnoses Not on filedocumented in this encounter Care Teams Robotics Engineer Relationship Specialty Start Date End Date Asif Coto DO [address] [place] [address] PCP - General FAMILY PRACTICE 09/29/21 documented as of this encounter
--- OUTSIDE RECORDS SUMMARY | 2024-04-23 21:38 | XMS_ITS | Encounter Summary ---
Author Organization [facility] Address [address] [place] [address]. 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 Procedures NONE RIGHT TOTAL HIP ARTHROPLASTY Roldan Olvera MD [address] [place] [phone] Phone: tel: fax: Referral ID Status Reason Start Date Expiration Date Visits Re quested Visits Authorized [id number] 1 1 Encounter Details Date Type Department Care Team (Late st Contact Info) Description 02/26/2023 10:04 AM ROUTE SALES PERSON - 02/26/2023 12:27 PM ROUTE SALES PERSON Surgery [facility] [place] [address] Roldan Olvera MD [address] [place] [phone] RIGHT TOTAL HIP ARTHROPLASTY Surgery Details Date/Time Status Location OR Service Patient Class Case Class Case Type Trauma Case? 02/26/2023 10:04 AM Posted SFL OR OR 2 Orthopedics Short Stay/Outpat ient Surgery No Panel 1 Procedure LRB Anes Op Region Wound Class Comments RIGHT TOTAL HIP ARTHROPLASTY Right Spinal Hip C lean Surgeon Surgeon Role Service Panel Roldan Olvera MD Primary Orthopedics 1 documented in this encounter Social History Tobacco Use Types Packs/Day Years Used Date Smoking Tobacco: Former Cigarettes Smokeless Tobacco: Never Alcohol Use Standard Drinks/Week Comments Not Currently 0 (1 standard drink = 0.6 oz pur e alcohol) [facility] Utilities Answer Date Recorded In the past 12 months has th e electric, gas, oil, or water company [...] How often do you attend tenriism or lutheran serv ices? Patient declined 02/26/2023 Do you [...] Health Questionnaire-2 Score 0 02/26/2023 [facility] - Occupational [...] Sexual Orientation Straight 02/26/2023 1: 40 PM ROUTE SALES PERSON documented as of this encounter Last Filed Vital Signs Vital Sign Reading Time Taken Comments Blood Pressure 114/62 02/26/2023 12:15 PM ROUTE SALES PERSON Pulse 76 02/26/2023 12:15 PM ROUTE SALES PERSON Temperature 35.6 ??C (96 ??F) 02/26/2023 12:15 PM ROUTE SALES PERSON Respiratory Rate 16 02/26/2023 12:15 PM ROUTE SALES PERSON Oxygen Saturation 97% 02/26/2023 12:15 PM ROUTE SALES PERSON Inhaled Oxygen Concentration - - Weight 74.8 kg (165 lb) 02/16/2023 3:07 PM CDT Height 165.1 cm (5' 5 ) 02/16/2023 3:07 PM CDT Body Mass Index 27.46 02/26/2023 1:15 PM ROUTE SALES PERSON documented in this encounter Functional Status * Are you deaf or do you have serious difficulty hearing Answer Date of Assessment Author Status No 02/26/2023 1:46 PM ROUTE SALES PERSON Casie Mcduffie RN Active * Are you blind or do you have serious difficulty seeing, even when wearing glasses? Answer Date of Assessment Author Status No 02/26/2023 1:46 PM ROUTE SALES PERSON Casie Mcduffie RN Active * Do you have serious difficulty walking or climbing stairs? Answer Date of Assessment Author Status No 02/26/2023 1:46 PM ROUTE SALES PERSON Casie Mcduffie RN Active * Do you have difficulty dressing or bathing? Answer Date of Assessment Author Status No 02/26/2023 1:46 PM ROUTE SALES PERSON Casie Mcduffie RN Active * Because of a physical, mental, or emotional condition, do you have difficulty doing errands alone such as visiting a doctor's office or shopping? Answer Date of Assessment Author Status No 02/26/2023 1:46 PM ROUTE SALES PERSON Casie Mcduffie RN Active documented as of this encounter Mental Status * Because of a physical, mental, or emotional condition, do you have serious difficulty concentrating, remembering, or making decisions? Answer Entry Date Author Status No 02/26/2023 1:46 PM ROUTE SALES PERSON Casie Mcduffie RN Active documented in this encounter Discharge Summaries * Roldan Olvera MD - 02/27/2023 2:15 PM CST Physician Discharge Summary Patient ID: Donna Saunders [id number] 67-year-old 1955 Primary Care Physician: ASIF HOOD [...] was discharged home with follow-up instructions from [facility]. out patient physical therapy is arranged. She [...] 2 (two) times a day., Historical Med [place]-3 Fatty Acids (FISH OIL) 500 MG capsule Take 1,000 mg by mouth daily., Historical Med OZEMPIC, 0.25 OR 0.5 MG/DOSE, 2 MG/3ML injection (PEN) Inject 0.25 mg into the skin every 7 days. Sunday, Starting Sun01/23/2023, Historical Med traZODone 50 MG tablet Take 1 tablet (50 mg total) by mouth nightly at bedtime., Starting Denia 05/12/2021, Historical Med TRUE METRIX BLOOD GLUCOSE TEST [...] Signed: ROLDAN OLVERA MD 02/28/2023 5:16 PM E SALES PERSON documented in this encounter Medications at Time [...] total) by mouth nightly at bedtime. 05/13/2021 [facility] (OSTEO BI-FLEX ADV TRIPLE ST) Tab Take 1 tablet by mouth 2 (two) times a day. [place]-3 Fatty Acids (FISH OIL) 500 MG capsule Take 1,000 mg by mouth daily. TRUE METRIX BLOOD GLUCOSE TEST test strip 01/10/2021 TRUEplus Lancets 33G [facility] 01/10/2021 vitamin D3 (CHOLECALCIFEROL) 25 mcg tablet [...] this encounter Progress Notes * Shira Greco, AIRCRAFT SEAT UPHOLSTERER - 02/27/2023 2:15 PM CST 02/27/23 1307 [...] begin outpatient therapy later this week in [place]. Discharge Recommendation PT Recommendation Home with assistance;Outpatient PT PT Equipment Recommended 2 Wheeled walker Plan Progress Discontinue PT E SALES PERSON * Shira Greco PTA - 02/27/2023 10:44 [...] Inpatient PT Time Calculation PT Start Time 858 PT Stop Time 925 PT Time Calculation (min) 27 min Precautions [...] Call light within reach;Nursing aware of session E SALES PERSON * Casie Mcduffie RN - 02/27/2023 10:24 [...] with 2 w/w. Outcome: Adequate for Discharge E SALES PERSON * Kiera Mcmanus OT - 02/27/2023 9:28 AM CST OT Initial Evaluation Discharge Recommendation: home with assistance DME equipment recommendation: 2 wheeled walker Activity Recommendation for physical therapy assistant instructor: Up with 1 2ww, posterior hip precautions [...] setup assistance to [place] with use of insurance sales representative and socks aid for LBD increased time [...] status occurs. Education: Primary Learners Name: Donna Saunders Primary Language of learner: Vincentian Patient educated on stroke rehabilitation management exercises transfers ADLs balance bed mobility equipment therapy plan gait safety. Education was completed one to one verbal hands-on this date. Preference of learning new concepts one to one verbal hands-on Barriers to education this date were pain fatigue. Response to education this date verbalized understanding. E SALES PERSON * Elena Guadalupe RN - 02/26/2023 10:52 [...] RN, MD, and pharmacy collaborating in care E SALES PERSON * Casie Mcduffie RN - 02/26/2023 7:09 PM CST Internal dilaudid pain pump, patient controlled, Dr. Olvera/Sujatha Solis aware. E SALES PERSON * Checo Greco, PT - 02/26/2023 5:56 PM CST Instructions for Nursing: Pt with very high pain level and not tolerant to position changes. Pt minAx1 for supine-sit transfers. Physical Therapy Inpatient Evaluation Time In: 1632 Time Out: 1645 Donna Saunders 300/01 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 [...] and is managed by pain management in [place]. She has an internal pain pump which she is able to use as she needs. She is reluctant to sit on EOB,but obliges with PT encouragement. She reports she will be doing OP PT in [place]. Home Environment: House Entrance: Ramp with Bilateral [...] and all needs met per pt report. E SALES PERSON * Liliana Scott RN - 02/26/2023 3:55 PM CSTSummary: FINAL d/c note CM informed that Donna is to be discharging tomorrow (02/27/23). Final D/C Plan Destination: Home Transportation: private vehicle DME: n/a Donna is planning to start out patient therapy. She states she already has a walker for home use.No CM needs. E SALES PERSON * Liliana Scott RN - 02/26/2023 3:55 [...] walker for home use. No CM needs. E SALES PERSON * Liliana Scott RN - 02/26/2023 3:53 PM CSTSummary: Initial d/c plan 02/26/23 155 Discharge Plan Discharge Plan Discharge to Home Donna is planning to return home at discharge via private vehicle and start out patient therapy. She states she already has a walker for home use. No CM needs. E SALES PERSON * Casie Mcduffie RN - 02/26/2023 3:33 [...] Polypharmacy Outcome: Progressing Note: Medication review conducted. E SALES PERSON documented in this encounter H&P Notes * [...] during recuperation were discussed with the patient/family/personal phlebotomy services representative. Reasonable alternatives to the patient's proposed procedure/surgery including benefits, risks, and side effects related to the alternatives and the risks related to not receiving the proposed care were also discussed with the patient/family/personal phlebotomy services representative. Questions were answered and the patient /family/personal phlebotomy services representative verbalized understanding and desires to proceed. E SALES PERSON Source Note - Roldan Olvera MD - [...] 24 hr tablet, , Disp: , Rfl: [facility] (OSTEO BI-FLEX ADV TRIPLE ST) Tab, Take 1 tablet by mouth 2 (two) times a day., Disp: , Rfl: [place]-3 Fatty Acids (FISH OIL) 500 MG capsule, Take 1,000 mg by mouth daily., Disp: , Rfl: traZODone 50 MG tablet, , Disp: , Rfl: TRUE METRIX BLOOD GLUCOSE TEST test strip, , Disp: , Rfl: TRUEplus Lancets 33G [facility], , Disp: , Rfl: vitamin D3 (CHOLECALCIFEROL) [...] daily and losartan 50mg daily. Nita Solis VICE PRESIDENT OF MANUFACTURING consulted and stated to hold amlodipine and lisinopril for now. Losartan ok to administer. Will continue to follow up. E SALES PERSON * Casie Mcduffie RN - 02/26/2023 5:[address] Olvera/Sujatha Valadezg VICE PRESIDENT OF MANUFACTURING, okay to change norco to percocet due to increased pain tolerance. Dr. Francis also aware of patient's internal dilaudid pain pump. Patient is able to administer an extra dose of dilaudid controlled electronically via her phone every 6 hours as needed. Merissa ent c/o 01/23 back pain. Educated patient to make nurse aware when electronically dosing her internal pain pump. insecticide supervisor Chante Castellanos also aware. Will continue to follow up. E SALES PERSON * Lyric Murphy RN - 02/26/2023 10:42 AM CST Son given update E SALES PERSON documented in this encounter OR Notes * Op Note - Roldan Olvera MD - 02/26/2023 12:08 PM CST Donna Saunders 1955 [id number] 02/26/2023 Preoperative Diagnosis: End-stage right hip osteoarthritis Postoperative Diagnosis: same Procedure: right total hip arthroplasty using a Depuy size 7 standard offset stem with a 54 mm Sheridan shell using a dual mobility liner and a 28 x +1.5 mm metal head Surgeon: ROLDAN OLVERA MD Anesthesia: Spinal with IV sedation Indication: Donna Saunders is a 67-year-old female with a history of functional disability because of hip pain. The patient has evidence of end-stageosteoarthritis and has failed to see sustained relief [...] awl was used to localize the canal. Anahen reamed up to the appropriate size to enable fill of the canal and then broached appropriately obtaining excellent purchase in the canal. The calcar reamer was used to even out the calcar and we trialed the neck lengths with offset options considered. Intraoperative x-rays were obtained demonstrating satisfactory fill of the canal but the cup was a bit anteverted. Leg lengths appeared okay. Ithen went back and changes of version a [...] counts were correct x2 following the procedure E SALES PERSON * Brief Op Note - Roldan Olvera MD - 02/26/2023 12:07 PM CST [facility] Brief Op [facility]IGHT TOTAL HIP ARTHROPLASTY Procedure Note Donna A Chip 02/26/2023 1004 Procedure(s) (LRB): RIGHT TOTAL HIP ARTHROPLASTY (Right) Surgeon(s): Roldan Olvera MD Animal Stunner: Muffler Installer: Jasmin Dodge RN Anesthesia: Spinal Pre-Op Diagnosis: M16.31 Post-Op Diagnosis: Same Findings: Estimated Blood Loss: 300 mL Specimens: None ROLDAN OLVERA MD Date: 02/26/2023 Time: 12:07 PM E SALES PERSON documented in this encounter Plan of Treatment Upcoming Encounters Date Type Department Care Team (Late st Contact Info) Description 04/29/2024 1:45 PM ROUTE SALES PERSON Office Visit [address] [address] Sujatha Solis, [address] [place] [address] documented as of this encounter Procedures Procedure Name Priority Date/Time Associated Diagnosis Comments HEMOGLOBIN AND HEMATOCRIT Routine 02/27/2023 4:27 AM ROUTE SALES PERSON XR PELVIS 1 OR 2 VIEWS Today 02/26/2023 11:17 AM ROUTE SALES PERSON ARTHROPLASTY HIP TOTAL 02/26/2023 9:42 AM ROUTE SALES PERSON 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 POCT GLUCOSE - GERONIMO DOCKED DEVICE Routine 02/26/2023 8:43 AM ROUTE SALES PERSON documented in this encounter Results * (ABNORMAL) HEMOGLOBIN AND HEMATOCRIT (02/27/2023 4:27 AM ROUTE SALES PERSON) HGB 11.9(L) 12.0 - 16.0 G/DL 02/27/2023 6:26 AM ROUTE SALES PERSON [facility] HCT 36.2 36.0 - 47.0 % 02/27/2023 6:26 AM ROUTE SALES PERSON [facility] 02/27/2023 4:27 AM ROUTE SALES PERSON Roldan Olvera MD LABORATORY Final Result [facility] [address] [place] [address], * XR PELVIS 1 OR 2 VIEWS (02/26/2023 11:17 AM ROUTE SALES PERSON) Anatomical Region Laterality Modality Pelvis Radiographic Chanel ging 02/27/2023 8:59 AM ROUTE SALES PERSON Impressions 02/27/2023 9:00 AM ROUTE SALES PERSON IMPRESSION: Right hip arthroplasty. Correlation with the intraprocedural findings required. Ordered By: ROLDAN OLVERA Interpreted By: Abimael Shannon MD, 02/27/2023 8:59 AM Narrative 02/27/2023 9:00 AM ROUTE SALES PERSON Examination: Portable pelvis. Exam time: 1046 hours. 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 Secondary localized osteoarthrosis, pelvic region and thigh 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 Secondary [...] or crush., Post-Op Given 02/27/2023 8:30 AM ROUTE SALES PERSON 81 mg atorvastatin (LIPITOR) tablet 40 mg 40 mg, Oral, Nightly at bedtime, First dose on Sun02/26/23 at 2100, Until Discontinued Given 02/26/2023 8:07 PM ROUTE SALES PERSON 40 mg baclofen (LIORESAL) tablet 10 mg 10 mg, Oral, 2 times daily, First dose on Sun02/26/23 at 1330, Until Discontinued Given 02/27/2023 8:30 AM ROUTE SALES PERSON 10 mg Given 02/26/2023 8:07 PM ROUTE SALES PERSON 10 mg Given 02/26/2023 2:59 PM ROUTE SALES PERSON 10 mg ceFAZolin (ANCEF) 2 g in [...] time., Post-Op New Bag 02/27/2023 1:16 AM ROUTE SALES PERSON 2 g 100 mL/hr New Bag 02/26/2023 5:23 PM ROUTE SALES PERSON 2 g 100 mL/hr chlorhexidine (PERIDEX) 0.12 % solution 15 mL 15 mL, Mouth/Throat, PRN, Prior to surgery, 1 dose, Starting on Sun02/26/23 at 0804, Until Sun02/26/23 at 0813, Patient to perform oral care first. Swish/Gargle in mouth for 30 seconds, and then discard, prior to going to surgery/ If ventilated use saturated swab to clean oral cavity., Pre-Op Given 02/26/2023 8:13 AM ROUTE SALES PERSON 15 mLs docusate sodium (COLACE) capsule 100 mg 100 mg, Oral, 2 times daily, First dose on Sun02/26/23 at 1330, Until Discontinued, Post-Op Given 02/27/2023 8:30 AM ROUTE SALES PERSON 100 mg Given 02/26/2023 8:07 PM ROUTE SALES PERSON 100 mg Given 02/26/2023 2:59 PM ROUTE SALES PERSON 100 mg famotidine (PEPCID) 20 MG tablet 1 dose, Starting on Sun02/26/23 at 0806, Until Sun02/26/23 at 0813, Created by yves clement famotidine (PEPCID) tablet 20 mg 20 mg, Oral, Once, 1 dose, On Sun02/26/23 at 0830, On admission, Pre-Op Given 02/26/2023 8:13 AM ROUTE SALES PERSON 20 mg famotidine (PEPCID) tablet 20 mg 20 mg, Oral, Every 12 hours scheduled (2 times per day), First dose on Sun02/26/23 at 2100, Until Discontinued, Post-Op Given 02/27/2023 8:30 AM ROUTE SALES PERSON 20 mg Given 02/26/2023 8:07 PM ROUTE SALES PERSON 20 mg famotidine (PF) (PEPCID) injection 20 [...] 1330, Until Discontinued Given 02/27/2023 8:30 AM ROUTE SALES PERSON 1,000 m g Given 02/26/2023 2:59 PM ROUTE SALES PERSON 1,000 mg HYDROcodone-acetaminophen (NORCO) 10-325 MG tablet 1 tablet 1 tablet, Oral, Every 4 hours PRN, Severe pain (Scale 8 - 10), Starting on Sun02/26/23 at 1308, Until Sun02/26/23 at 1745, Maximum dose of acetaminophen is 4000 mg from all sources in 24 hours., Post-Op Given 02/26/2023 2:59 PM ROUTE SALES PERSON 1 tablet lactated ringers infusion at 10 mL/hr, Intravenous, Continuous, Starting on Sun02/26/23 at 0830, Until Sun02/27/23 at 0752, Infuse at TKO rate, Pre-Op New Bag 02/26/2023 11:12 AM ROUTE SALES PERSON Restarted 02/26/2023 10:28 AM ROUTE SALES PERSON Continued by Anesthesia 02/26/2023 9:47 AM ROUTE SALES PERSON 10 mL/hr lactated ringers infusion at 75 mL/hr, Intravenous, Continuous, Starting on Sun02/26/23 at 1330, Until Sun02/27/23 at 0528, May discontinue IV Fluid when adequate oral intake, Post-Op New Bag 02/26/2023 3:01 PM ROUTE SALES PERSON 7 5 mL/hr levothyroxine (SYNTHROID) tablet 75 mcg 75 mcg, Oral, Every morning, First dose (after last modification) on Sun02/27/23 at 0700, Until Discontinued, Avoid iron, calcium, and antacids within 4 hours of administration. Given 02/27/2023 6:21 AM ROUTE SALES PERSON 75 mcg lisinopril (PRINIVIL) tablet 5 mg 5 mg, Oral, Daily, First dose on Sun02/26/23 at 1330, Until Discontinued Given 02/26/2023 2:59 PM ROUTE SALES PERSON 5 mg losartan (COZAAR) tablet 50 mg 50 mg, Oral, Daily, First dose on Sun02/26/23 at 1330, Until Discontinued Given 02/27/2023 8:48 AM ROUTE SALES PERSON 50 mg Given 02/26/2023 2:59 PM ROUTE SALES PERSON 50 mg meloxicam (MOBIC) tablet 7.5 mg 7.5 mg, Oral, Daily, First dose on Sun02/26/23 at 1330, Until Discontinued Given 02/27/2023 8:48 AM ROUTE SALES PERSON 7.5 mg Given 02/26/2023 2:59 PM ROUTE SALES PERSON 7.5 mg metFORMIN ER (GLUCOPHAGE-XR) 24 hr tablet 500 mg 500 mg, Oral, Nightly, First dose (after last modification) on Sun02/26/23 at 2100, Until Discontinued, Do not break, chew, or crush. Given 02/26/2023 8:07 PM ROUTE SALES PERSON 500 mg metoclopramide (REGLAN) 10 MG tablet 1 dose, Starting on Sun02/26/23 at 0806, Until Sun02/26/23 at 0812, Created by yves clement metoclopramide (REGLAN) tablet 10 mg 10 mg, Oral, Once, 1 dose, On Sun02/26/23 at 0830, On admission, Pre-Op Given 02/26/2023 8:12 AM ROUTE SALES PERSON 10 mg oxyCODONE-acetaminophen (PERCOCET) 10-325 MG tablet 1 tablet 1 tablet, Oral, Every 4 hours PRN, Severe pain (Scale 8 - 10), Starting on Sun02/26/23 at 1744, Until Sun02/27/23 at 1644, Maximum dose of acetaminophen is 4000 mg from all sources in 24 hours. Given 02/27/2023 12:31 PM ROUTE SALES PERSON 1 tab let Given 02/27/2023 8:48 AM ROUTE SALES PERSON 1 tablet Given 02/27/2023 4:41 AM ROUTE SALES PERSON 1 tablet oxyCODONE-acetaminophen (PERCOCET) 5-325 MG tablet 1 tablet 1 tablet, Oral, Every 4 hours PRN, Moderate pain (Scale 4 - 7), Starting on Sun02/26/23 at 1744, Until Sun02/27/23 at 1644, Maximum dose of acetaminophen is 4000 mg from all sources in 24 hours. sodium chloride 0.9 % 3,000 mL with gentamicin 320 mg irrigation As needed, Starting on Sun02/26/23 at 1036, Until Sun02/26/23 at 1212, Intra-Op Given 02/26/2023 10:36 AM ROUTE SALES PERSON 2,500 mLs Operative Site traZODone (DESYREL) tablet 50 mg 50 mg, Oral, Nightly at bedtime, First dose on Sun02/26/23 at 2100, Until Discontinued Given 02/26/2023 8:07 PM ROUTE SALES PERSON 50 mg vitamin D3 (cholecalciferol) tablet 25 mcg 25 mcg, Oral, Daily, First dose on Sun02/26/23 at 1330, Until Discontinued Given 02/27/2023 8:30 AM ROUTE SALES PERSON 25 mcg Given 02/26/2023 2:59 PM ROUTE SALES PERSON 25 mcg zolpidem (AMBIEN) tablet 5 mg 5 mg, Oral, Nightly at bedtime, First dose on Sun02/26/23 at 2100, Until Discontinued, May repeat x1 if necessary Given 02/26/2023 8:07 PM ROUTE SALES PERSON 5 mg documented in this encounter Active and Recently Administered Medications Times are shown in ROUTE SALES PERSON. Scheduled Medication Order 02/25/2023 02/26/2023 02/27/2023 amLODIPine (NORVASC) tablet 10 mg 10 mg, Oral, Daily, First dose on Sun02/26/23 at 1330, Until Discontinued 1501 (Not Given - Provider: Casie Mcduffie RN - Reason: Patient already took) 0830 (Not Given - Provider: Casie Mcduffie RN - Reason: Order parameters not met - Comment: per Sujatha Solis NP) aspirin EC (ECOTRIN) tablet 81 mg 81 [...] dose on Sun02/26/23 at 1330, Until Discontinued 145 (Given - Provider: Casie Mcduffie RN)2006 (Given - Provider: Elena Guadalupe RN) 0830 (Given - Provider: Casie Mcduffie RN) ceFAZolin (ANCEF) 2 g in sodium chloride 0.9 % 50 mL IVPB (COMPLETED) 2 g, Intravenous, at 100 mL/hr, molecular modeler, 1 dose, On Sun02/26/23 at 0830, Give [...] 829 (Given - Provider: Casie Mcduffie RN) famotidine (PEPCID) tablet 20 mg (COMPLETED) 20 mg, Oral, Once, 1 dose, On Sun02/26/23 at 0830, On admission, Pre-Op 08 (Given - Provider: Marsha Alexander RN) famotidine (PEPCID) tablet 20 mg(Linked Group 1) 20 mg, Oral, Every 12 hours scheduled (2 times per day), First dose on Sun02/26/23 at 2100, Until Discontinued, Post-Op 2006 (Given - Provider: Elena Guadalupe RN) 829 (Given - Provider: Casie Mcduffie RN) famotidine (PF) (PEPCID) injection 20 mg(Linked Group 1) 20 mg, Intravenous, Every 12 hours scheduled (2 times per day), First dose on Sun02/26/23 at 2100, Until Discontinued, Give if unable to take PO. IV Push over 2 minutes, Post-Op 2006 (See Alternative - Provider: Elena Guadalupe RN) 829 (See Alternative - Provider: Casie Mcduffie RN) [...] not met - Comment: per Sujatha Solis VICE PRESIDENT OF MANUFACTURING) losartan (COZAAR) tablet 50 mg 50 mg, Oral, Daily, First dose on Sun02/26/23 at 1330, Until Discontinued 145 (Given - Provider: Casie Mcduffie RN) 0848 (Given - Provider: Casie Mcduffie RN) meloxicam (MOBIC) tablet 7.5 mg 7.5 mg, Oral, Daily, First dose on Sun02/26/23 at 1330, Until Discontinued 1458 (Given - Provider: Casie Mcduffie RN) 08 (Given - Provider: Casie Mcduffie RN) metFORMIN ER (GLUCOPHAGE-XR) 24 hr tablet 500 mg 500 mg, Oral, Nightly, First dose (after last modification) on Sun02/26/23 at 2100, Until Discontinued, Do not break, chew, or crush. 2006 (Given - Provider: Elena Guadalupe RN) metoclopramide (REGLAN) tablet 10 mg (COMPLETED) 10 mg, Oral, Once, 1 dose, On Sun02/26/23 at 0830, On admission, Pre-Op 0812 (Given - Provider: Marsha Alexander RN) tranexamic acid (CYKLOKAPRON) injection 1,000 mg [...] dose on Sun02/26/23 at 1330, Until Discontinued 1458 (Given - Provider: Casie Mcduffie RN) 0830 (Given - Provider: Casie Mcduffie RN) zolpidem (AMBIEN) tablet 5 mg 5 mg, Oral, Nightly at bedtime, First dose on Sun02/26/23 at 2100, Until Discontinued, May repeat x1 if necessary 2006 (Given - Provider: Elena Guadalupe RN) Continuous Medication Order 02/25/2023 02/26/2023 02/27/2023 lactated ringers infusion (CANCELED) at 10 mL/hr, Intravenous, Continuous, Starting on Sun02/26/23 at 0830, Until Sun02/27/23 at 0752, Infuse at TKO rate, Pre-Op 0845 (New Bag - Provider: Marsha Alexander RN)0947 (Continued by Anesthesia - Provider: Madeline [...] saturated swab to clean oral cavity., Pre-Op 0813 (Given - Provider: Marsha Alexander RN) cyclobenzaprine (FLEXERIL) tablet 5 mg 5 [...] Elena Guadalupe RN)0848 (Given - Provider: Casie Mcduffie, RN)1231 (Given - Provider: Casie Mcduffie, UNA) oxyCODONE-acetaminophen (PERCOCET) 5-325 MG tablet 1 tablet [...] Post-Op documented in this encounter Care Teams 3D Technologist Relationship Specialty Start Date End Date Asif Hood DO [address] [place] [address] PCP - General FAMILY PRACTICE 09/29/21 documented as of this encounter
--- OUTSIDE RECORDS SUMMARY | 2024-04-23 21:38 | XMS_ITS | Encounter Summary ---
Author Organization [facility] Address [address] [place] [address]. 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 Procedures Case request operating room: RIGHT TOTAL HIP ARTHROPLASTY Roldan Rader MD [address] [place] [address] Phone: tel: fax: Referral ID Status Reason Start Date Expiration Date Visits Re quested Visits Authorized [id number] Closed 01/30/2023 01/31/2024 1 1 Encounter Details Date Type Department Care Team (Late st Contact Info) Description 01/30/2023 Prep for Procedure [facility] [address] [place] [address], [address]ILD[address] [place] [address] Roldan Rader MD [address] [place] [address] Social History Tobacco Use Types Packs/Day Years [...] Sexual Orientation Straight 02/26/2023 1: 40 PM MOUNTER FLUTES AND PICCOLOS documented as of this encounter Plan of Treatment Upcoming Encounters Date Type Department Care Team (Late st Contact Info) Description 04/29/2024 1:45 PM MOUNTER FLUTES AND PICCOLOS Office Visit [place] [id number] [facility] 1 [place] [address] Sujatha Solis, INSTRUCTIONAL TECHNOLOGY FACILITATOR- [address] [facility] [place] [address] Scheduled Orders Name Type Priority Associated Diagnoses Orde r Schedule Case request operating room: RIGHT TOTAL HIP ARTHROPLASTY Case Request Routine 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
--- OUTSIDE RECORDS SUMMARY | 2024-04-23 21:38 | XMS_ITS | Encounter Summary ---
Author Organization [facility] Address [address] [place] [address]. [place] [address] [place] [address] Care Team Providers Care Pot Feeder Name Role Phone John Strange DDJaleesa Primary Care Provider [phone] Reason for Visit * Reason Comments Ingrown Toenail Encounter Details Date Type Department Care Team (Late st Contact Info) Description 07/29/2021 2:45 PM CDT [facility] [address] [address] Jasmyne Fay, DPM [address] [place] [address] Ingrown Toenail Social History Tobacco Use Types Packs/Day Years [...] Sexual Orientation Straight 02/26/2023 1: 40 PM COREMAKER SUPERVISOR documented as of this encounter Last Filed Vital Signs Vital Sign Reading Time Taken Comments Blood Pressure - - Pulse - - Temperature - - Respiratory Rate - - Oxygen Saturation - - Inhaled Oxygen Concentration - - Weight 59 kg (130 lb) 07/29/2021 2:22 PM CDT Height 165.1 cm (5' 5 ) 07/29/2021 2:22 PM CDT Body Mass Index 21.63 07/29/2021 2:22 PM CDT documented in this encounter Progress Notes * Jasmyne Fay MD - 07/29/2021 2:45 PM CDT Reason for Visit: Ingrown Toenail History of Present Illness: Patient returns for follow-up of permanent nail removal of her left great toenail, notes this is a bit sore as expected, she is keeping this covered. Notes that she has a palpable right shoe every single pair of shoes that she gets. She has not really tried anything but this does cause some pain on top of her toe. She would also like to schedule her left foot surgery sooner rather than later and would like to discuss the details. Review Of Systems: Negative except the HPI. Medications: Current Outpatient Medications: ??? amLODIPine 10 MG tablet, , Disp: , Rfl: ??? atorvastatin 40 MG tablet, , Disp: , Rfl: ??? Blood Glucose Monitoring Suppl (TRUE METRIX METER) w/Device Kit, , Disp: , Rfl: ??? carbidopa-levodopa 10-100 MG tablet, , Disp: , Rfl: ??? carbidopa-levodopa 25-100 MG tablet, , Disp: , Rfl: ??? clonazePAM 0.5 MG tablet, , Disp: , Rfl: ??? liothyronine 25 MCG tablet, , Disp: , Rfl: ??? lisinopril 20 MG tablet, , Disp: , Rfl: ??? lisinopril 5 MG tablet, , Disp: , Rfl: ??? metFORMIN ER 500 MG 24 hr tablet, , Disp: , Rfl: ??? pimozide 2 MG tablet, , Disp: , Rfl: ??? propranolol 40 MG tablet, , Disp: , Rfl: ??? traZODone 50 MG tablet, , Disp: , Rfl: ??? TRUE METRIX BLOOD GLUCOSE TEST test strip, , Disp: , Rfl: ??? TRUEplus Lancets 33G Misc, , Disp: , Rfl: Allergies:No Known Allergies Past Medical History: Diagnosis Date ??? Chronic back pain ??? Hypertension Past Surgical History: Procedure Laterality Date ??? BACK SURGERY Social History Socioeconomic History ??? Marital status: Spouse name: Not on file ??? Number of children: Not on file ??? Years of education: Not on file ??? Highest education level: Not on file Occupational History ??? Not on file Tobacco Use ??? Smoking status: Never Smoker ??? Smokeless tobacco: Never Used Vaping Use ??? Vaping Use: Unknown Substance and Sexual Activity ??? Alcohol use: Not Currently ??? Drug use: Never ??? Sexual activity: Not on file Other Topics Concern ??? Not on file Social History Narrative ??? Not on file Social Determinants of Health Financial Resource Strain: Not on file Food Insecurity: Not on file Transportation Needs: Not on file Physical Activity: Not on file Stress: Not on file Social Connections: Not on file Intimate Partner Violence: Not on file Family History Problem Relation Name Age of Onset ??? Thyroid Disease Other Family Status Relation Name Status ??? Other (Not Specified) PHYSICAL EXAM Matricectomy site the left great toe nailbed shows expected fibrotic tissue with no surrounding erythema nor edema. No purulence or malodor. Diminished pedal pulses bilaterally. Absent pedal hair growth bilaterally. Digits are cool to the touch bilaterally. Left great toe is laterally deviated abutting the second toe with medial deviation the first metatarsal head creating a very prominent bunion deformity, there is interdigital erythema but no ulceration. Prominent bunion deformity over the left first and fifth metatarsal heads. The left great toe joint is reducible with minimal lateral tracking during range of motion. Light touch sensation intact per Earle Jason monofilament wire. Diminished medial arch height bilaterally. There is instability of the left medial column, specifically I believe this is from the naviculocuneiform joint as opposed to the first metatarsocuneiform joint. Instability of the right midfoot and the right hallux interphalangeal joint with hyperextension deformity. Radiographs: 3 views left foot are performed reviewed showing an increase in the first intermetatarsal angle, increase in the hallux abductus angle, increase in the fourth intermetatarsal angle and lateral deviation angle. There appears to be no plantar gapping of the first metatarsocuneiform jointbut there is a significant step-off with plantar gapping at the naviculocuneiform joint. Filed Vitals: 07/29/21 1422 Weight: 59 kg (130 lb) Height: 5' 5 (1.651 m) No results found for: WBC, RBC, HGB, HCT, MCV, MCH, MCHC, PLT, RDW, MPV No results found for: NA, K, CL, CO2, AGAP, BUN, CR, BUNCREATININ, GFRNON, GFR, GLU, CA, TP, ALB, TBIL, ALKP, AST, ALT No results found for: ESR No results found for: CRP No results found for: URIC No results found for: CULTRESULT Radiology Results (Last 30 days) None Diagnoses/Impression: Encounter Diagnose(s) ICD-10-CM ICD-9-CM 1. Foot joint instability, right M25.374 718.87 28510 - STRAPPING OF ANKLE, RIGHT 2. Acquired hallux malleus of right foot M20.31 735.3 49886 - STRAPPING OF TOES, RIGHT 3. Hallux valgus with bunions of left foot M20.12 735.0 M21.612 727.1 4. Tailor's bunion of left foot M21.622 727.1 5. Ingrowing nail L60.0 703.0 6. Dystrophic nail L60.3 703.8 Recommendations and Plan: We did perform midfoot strapping in the right as well strapping the right great toe joint and hallux interphalangeal joint to prevent continued irritation top of the right shoe, can consider supportive inserts in the future. A curette was used to remove the fibrotic and eschar tissue from the matricectomy site down to bleeding granular tissue. Hemostasis was achieved with pressure, Amerigel ointment and a Band-Aid was applied. Patient to continue applying antibiotic ointment a Band-Aid for additional 2 weeks and will follow- up in 2-4 weeks for a final check. Again discussed the surgical plan including a first metatarsal, hallux and fifth metatarsal osteotomy with soft tissue bunionectomy. Patient will be immediately weightbearing in surgical shoe, this will be done on outpatient basis under MAC local anesthesia. She can expect several months of postoperative pain and swelling. We will create a final surgical plan at her next visit in 3 weeks. JASMYNE FAY MD Referring Provider: No ref. provider found PCP: John Strange DDS documented in this encounter Plan of Treatment Upcoming Encounters Date Type Department Care Team (Late st Contact Info) Description 04/29/2024 1:45 PM COREMAKER SUPERVISOR Office Visit [facility] [address] [facility] 1 [place] [address] Sujatha Solis, GAS FITTER APPRENTICE- [address] [place] [address] Scheduled Orders Name Type Priority Associated Diagnoses Orde r Schedule [address]2344 - STRAPPING OF ANKLE, RIGHT Procedures Routine Foot joint instability, right Ordered: 07/29/2021 23958 - STRAPPING OF TOES, RIGHT Procedures Routine Acquired hallux malleus of right foot Ordered: 07/29/2021 documented as of this encounter Visit Diagnoses Diagnosis Foot joint instability, right- Primary Acquired hallux malleus of right foot Hallux valgus with bunions of left foot Tailor's bunion of left foot Ingrowing nail Dystrophic nail Other specified disease of nail documented in this encounter Care Teams Pot Feeder Relationship Specialty Start Date End Date John Strange DDS [address] [place] [address] PCP - General PREVENTIVE MEDICINE 07/25/18 09/28/21 documented as of this encounter
--- OUTSIDE RECORDS SUMMARY | 2024-04-23 21:38 | XMS_ITS | Encounter Summary ---
Author Organization [facility] Address [address] [place] [address]. [place] [address] [place] [address] Care Team Providers Care Wood Crafter Name Role Phone Asif Coto Primary Care Provider [phone] Encounter Details Date Type Department Care Team (Latest Contact Info) Description 09/22/2022 Travel Social History Tobacco Use Types Packs/Day [...] Sexual Orientation Straight 02/26/2023 1: 40 PM AUDIOVISUAL AIDS TECHNICIAN COVID-19 Exposure Response Date Recorded In the last 10 days, have yo u been in contact with someone who was confirmed or suspected to have Coronavirus/COVID-19? No / Unsure 09/22/2022 10:45 AM CDT documented as of this encounter Plan of Treatment Upcoming Encounters Date Type Department Care Team (Late st Contact Info) Description 04/29/2024 1:45 PM AUDIOVISUAL AIDS TECHNICIAN Office Visit [facility] [address] [facility] 1 [place] [address] Sujatha Solis, SPEECH LANGUAGE PATHOLOGIST ASSISTANT-BC [address] [facility] [address] [place] [address] documented as of this encounter Visit Diagnoses Not on filedocumented in this encounter Care Teams Wood Crafter Relationship Specialty Start Date End Date Asif Coto DO [address] [place] [address] PCP - General FAMILY PRACTICE 09/29/21 documented as of this encounter
--- OUTSIDE RECORDS SUMMARY | 2024-04-23 21:38 | XMS_ITS | Encounter Summary ---
Author Organization [facility] Address [address] [place] [address]. [place] [address] [place] [address] Care Team Providers Care Quiller Hand Name Role Phone RaviAsif becker Primary Care Provider [phone] Reason for Visit * Reason Onset Date Comments Prior Authorization 11/01/2021 Surgery 11/01/2021 Encounter Details Date Type Department Care Team (Late st Contact Info) Description 11/01/2021 Telephone [facility] [address] [place] [address] Kailash Argueta, DPM [address] [place] [address] Prior Authorization; Surgery Social History Tobacco Use Types Packs/Day Years [...] Sexual Orientation Straight 02/26/2023 1: 40 PM HEARING OFFICER documented as of this encounter Progress Notes * Shahrzad Holley, IRON WORKER - 11/01/2021 7:57 AM CDT Per [facility] portal CPT [id number] no authorization is needed. documented in this encounter Plan of Treatment Upcoming Encounters Date Type Department Care Team (Late st Contact Info) Description 04/29/2024 1:45 PM HEARING OFFICER Office Visit [facility] [address] [place] [address] 1 [place], [place] [address] Sujatha Solis, STORE STANDARDS ASSOCIATE- [address] [place] [address] [place] [address] documented as of this encounter Visit Diagnoses Not on filedocumented in this encounter Care Teams Quiller Hand Relationship Specialty Start Date End Date Asif Coto DO [address] [place] [address] PCP - General FAMILY PRACTICE 09/29/21 documented as of this encounter
--- OUTSIDE RECORDS SUMMARY | 2024-04-23 21:38 | XMS_ITS | Encounter Summary ---
Author Organization [facility] Address [address] [place] [address]. [place] [address] [place] [address] Care Team Providers Care Principal Cloud Architect Name Role Phone Asif Coto Primary Care Provider [phone] Encounter Details Date Type Department Care Team (Late Contact Info) Description 09/22/2022 Orders Only [address] [address] Roldan Rader MD [address] [place] [address] Social History Tobacco Use Types Packs/Day [...] Sexual Orientation Straight 02/26/2023 1: 40 PM CYBER SECURITY MANAGER documented as of this encounter Plan of Treatment Upcoming Encounters Date Type Department Care Team (Late Contact Info) Description 04/29/2024 1:45 PM CYBER SECURITY MANAGER Office Visit [address] [address] Sujatha Solis, CANARY RAISER-BC [address] [place] [address] documented as of this encounter Results * XR PELVIS 1 OR 2 VIEWS (09/22/2022 11:41 AM CDT) Anatomical Region Laterality Modality Pelvis Radiographic Chanel ging 09/25/2022 12:4 3 AM CDT Impressions 09/25/2022 12:45 AM CDT Impression: Moderate to advanced left hip arthritis. ??Advanced right hip arthritis. Referred By: ?? Interpreted By: Iván Galdamez MD, 09/25/2022 12:43 AM Narrative 09/25/2022 12:45 AM CDT Date: 09/22/2022 11:04 AM Exam: XR PELVIS 1 OR 2 VIEWS Comparison: Pelvic and left hip radiography dated 09/11/2022. ??Pelvic and hip radiography dated 08/29/2007. Technique: Frontal view of the pelvis and hips. History: Chronic left hip pain. Findings: There is advanced arthritis of the right hip and moderate to advanced arthritis of the left hip. ??There is no acute osseous abnormality. 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 ??There is a spinal generator projecting at the right pelvis. ??This possibly a glucose monitor or insulin pump projecting at the left upper pelvis. ??Partially visualized is dextroscoliosis in the lumbar spine and considerable degenerative change. Procedure Note Iván Galdamez MD - 09/25/2022 Date: 09/22/2022 11:04 AM Exam: XR PELVIS 1 OR 2 VIEWS Comparison: Pelvic and left hip radiography dated 09/11/2022. Pelvic andhip radiography dated 08/29/2007. Technique: Frontal view of the pelvis and hips. History: Chronic left hip pain. Findings: There is advanced arthritis of the right hip and moderate toadvanced arthritis of the left hip. There is no acute osseousabnormality. There is stable focal sclerosis involving the left iliacwing since 2007. There is a spinal generator projecting at the rightpelvis. This possibly a glucose monitor or insulin pump projecting at theleft upper pelvis. Partially visualized is dextroscoliosis in the lumbarspine and considerable degenerative change. Impression: Moderate to advanced left hip arthritis. Advanced right hiparthritis. Referred By: Interpreted By: Iván Galdamez MD, 09/25/2022 12:43 AM Roldan Rader MD GENERAL IMAGING Final Result documented in this encounter Visit Diagnoses Diagnosis Chronic left hip pain- Primary Pain in joint, pelvic region and thigh Chronic left hip pain Pain in joint, pelvic region and thigh documented in this encounter Care Teams Principal Cloud Architect Relationship Specialty Start Date End Date Asif Coto DO [address] [place] [address] PCP - General FAMILY PRACTICE 09/29/21 documented as of this encounter
--- OUTSIDE RECORDS SUMMARY | 2024-04-23 21:38 | XMS_ITS | Encounter Summary ---
Author Organization [facility] Address [address] [place] [address]. [place] [address] [place] [address] Care Team Providers Care Accounts Receivable Manager Name Role Phone MushtaqKatelyn hanson Primary Care Provider [phone] Reason for Visit * Reason Comments Bunion Encounter Details Date Type Department Care Team (Late st Contact Info) Description 12/30/2021 11:15 AM CDT [facility] [address] [address] Jasmyne Fay, DPM [address] [place] [address] Bunwendi Social History Tobacco Use Types Packs/Day Years [...] Sexual Orientation Straight 02/26/2023 1: 40 PM COMFORT STATION SUPERVISOR documented as of this encounter Last Filed Vital Signs Vital Sign Reading Time Taken Comments Blood Pressure - - Pulse - - Temperature - - Respiratory Rate - - Oxygen Saturation - - Inhaled Oxygen Concentration - - Weight 59 kg (130 lb) 12/30/2021 11:40 AM CDT Height 165.1 cm (5' 5 ) 12/30/2021 11:40 AM CDT Body Mass Index 21.63 12/30/2021 11:40 AM CDT documented in this encounter Progress Notes * Jasmyne Fay MD - 12/30/2021 11:15 AM CDT Reason for Visit: Bunion History of Present Illness: Patient returns, she is about 2 months status post left first and fifth metatarsal osteotomy. Overall she is doing well other than a knot on the bottom of the outside of her foot, this is sore when she does not wear shoes but she does not feel it when she wear shoes. Review Of Systems: Negative except the HPI. Medications: Current Outpatient Medications: ??? amLODIPine 10 MG tablet, , Disp: , Rfl: ??? atorvastatin 40 MG tablet, , Disp: , Rfl: ??? Blood Glucose Monitoring Suppl (TRUE METRIX METER) w/Device Kit, , Disp: , Rfl: ??? carbidopa-levodopa 10-100 MG tablet, , Disp: , Rfl: ??? carbidopa-levodopa 25-100 MG tablet, , Disp: , Rfl: ??? chlorhexidine (HIBICLENS) 4 % Liquid, Use the night before surgery and the morning of surgery.,Disp: 118 mL, Rfl: 0 ??? clonazePAM 0.5 MG tablet, , Disp: , Rfl: ??? liothyronine 25 MCG tablet, , Disp: , Rfl: ??? lisinopril 20 MG tablet, , Disp: , Rfl: ??? lisinopril 5 MG tablet, , Disp: , Rfl: ??? metFORMIN ER 500 MG 24 hr tablet, , Disp: , Rfl: ??? ondansetron 8 MG tablet, Take 1 tablet (8 mg total) by mouth every 8 (eight) hours as needed., Disp: 20 tablet, Rfl: 0 ??? pimozide 2 MG tablet, , Disp: [...] Social History Socioeconomic History ??? Marital status: Tobacco Use ??? Smoking status: Never Smoker ??? Smokeless tobacco: Never Used Vaping Use ??? Vaping Use: Unknown Substance and Sexual Activity ??? Alcohol use: Not Currently ??? Drug use: Never Family History Problem Relation Name Age of Onset ??? Thyroid Disease Other Family Status Relation Name Status ??? Other (Not Specified) PHYSICAL EXAM Some expected postoperative edema around the first ray and fifth ray with minimal tenderness, good range of motion of the first and fifth metatarsal phalange joint which general anatomic alignment with no obvious bunion or tailor bunion deformity. There is prominence just proximal to the fifth metatarsal head questionably associated with one of the screws. Neurovascular status intact. Radiographs: 3 views of left foot are reviewed in the [facility] PACS system showing complete consolidation across the first and fifth metatarsal osteotomy sites the most proximal screw in the fifthdoes appear to have migrated plantarly and potentially is prominent. Filed Vitals: 12/30/21 1140 Weight: 59 kg (130 lb) Height: 5' [...] None Diagnoses/Impression: Encounter Diagnose(s) ICD-10-CM ICD-9-CM 1. Hallux valgus with bunions of left foot M20.12 735.0 M21.612 727.1 2. Tailor's bunion of left foot M21.622 727.1 3. Painful orthopaedic hardware ([facility]) T84.84XA 996.78 Recommendations and Plan: The osteotomies are healing as anticipated, one of the screws is migrated unfortunately and potentially will may need to be removed in the future. She still might notice some improvement going forward so I like to see how her swelling improves see her back in 3 months, repeat 3 views of the left foot, if this is still bothersome we can consider hard removal if needed. Otherwise no restrictions oractivities at this point and she is healing very nicely. JASMYNE FAY MD Referring Provider: No ref. provider found PCP: KATELYN HOOD DO documented in this encounter Plan of Treatment Upcoming Encounters Date Type Department Care Team (Late st Contact Info) Description 04/29/2024 1:45 PM COMFORT STATION SUPERVISOR Office Visit [facility] [address] [place] [address] 1 [place] [address] Sujatha Solis, [facility]- [address] [place] [address] [place] [address] documented as of this encounter Visit Diagnoses Diagnosis Hallux valgus with bunions of left foot- Primary Tailor's bunion of left foot Painful orthopaedic hardware (CMS/HCC) documented in this encounter Care Teams Accounts Receivable Manager Relationship Specialty Start Date End Date Katelyn Hood DO [address] [place] [address] PCP - General FAMILY PRACTICE 09/29/21 documented as of this encounter
--- OUTSIDE RECORDS SUMMARY | 2024-04-23 21:38 | XMS_ITS | Encounter Summary ---
Author Organization [facility] Address [address] [place] [address]. [place] [address] [place] [address] Care Team Providers Care Climate Change Analyst Name Role Phone Asif Coto Primary Care Provider [phone] Encounter Details Date Type Department Care Team (Latest Contact Info) Description 08/08/2022 Travel Social History Tobacco Use Types Packs/Day [...] Sexual Orientation Straight 02/26/2023 1: 40 PM CAMPUS REP COVID-19 Exposure Response Date Recorded In the last 10 days, have yo u been in contact with someone who was confirmed or suspected to have Coronavirus/COVID-19? No / Unsure 08/08/2022 1:49 PM CDT documented as of this encounter Plan of Treatment Upcoming Encounters Date Type Department Care Team (Late st Contact Info) Description 04/29/2024 1:45 PM CAMPUS REP Office Visit [facility] [place] [address] [facility] 1 [place] [address] Sujatha Solis, KNEE BOLTER-BC [address] [facility] [place] [address] documented as of this encounter Visit Diagnoses Not on filedocumented in this encounter Care Teams Climate Change Analyst Relationship Specialty Start Date End Date Asif Coto DO [address] [place] [address] PCP - General FAMILY PRACTICE 09/29/21 documented as of this encounter
--- OUTSIDE RECORDS SUMMARY | 2024-04-23 21:38 | XMS_ITS | Encounter Summary ---
Author Organization [facility] Address [address] [place] [address]. [place] [address] [place] [address] Care Team Providers Care Intern Retail Name Role Phone NnamdiAsif Primary Care Provider [phone] Encounter Details Date Type Department Care Team (Latest Contact Info) Description 02/13/2023 3:31 PM CDT - 02/13/2023 3:32 PM CDT Hospital Encounter [facility] [address] [place] [address] Roldan Rader MD [address] [place] [address] Discharge Disposition: Home or Self [...] Sexual Orientation Straight 02/26/2023 1: 40 PM MACHINE INKER documented as of this encounter Medications at Time of Discharge [...] total) by mouth nightly at bedtime. 05/13/2021 [facility] Natural Products (OSTEO BI-FLEX ADV TRIPLE ST) Tab Take 1 tablet by mouth 2 (two) times a day. [place]-3 Fatty Acids (FISH OIL) 500 MG capsule Take 1,000 mg by mouth daily. TRUE METRIX BLOOD GLUCOSE TEST test strip 01/10/2021 TRUEplus Lancets 33G [facility] 01/10/2021 vitamin D3 (CHOLECALCIFEROL) 25 mcg tablet [...] 2 (two) times daily. 02/23/2023 05/31/19 24 clobetasol (TEMOVATE) 0.05 % cream Apply topically 2 (two) times daily. 10/31/2022 02/17/20 23 eszopiclone (LUNESTA) 1 MG tablet Take 1 tablet (1 mg total) by mouth nightly at bedtime. 02/21/2023 05/31/19 24 Levothyroxine Sodium 50 MCG Cap Take 75 mcg by mouth every morning. 07/25/2022 05/31/19 24 meloxicam (MOBIC) 15 MG tabletIndications:P rimary osteoarthritis of left knee Take 0.5 tablets (7.5 mg total) by mouth daily. 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 Chronic pain of right hip MRSA SCREENING Routine 02/13/2023 3:41 PM CDT 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 URINALYSIS WI REFLEX TO CULTURE Routine 02/13/2023 3:40 PM CDT 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 documented in this encounter Results * (ABNORMAL) CBC W/DIFF AUTOMATED (02/13/2023 3:46 PM CDT) WBC 9.29 4.00 - 10.80 x10'3/uL 02/13/2023 4:23 PM CDT [facility] RBC 5.24 4.10 - 5.40 x10'6/uL 02/13/2023 4:23 PM CDT [facility] HGB 15.0 12.0 - 16.0 G/DL 02/13/2023 4:23 PM CDT [facility] HCT 46.0 36.0 - 47.0 % 02/13/2023 4:23 PM CDT [facility] MCV 87.8 78.0 - 100.0 FL 02/13/2023 4:23 PM CDT [facility] MCH 28.6 27.0 - 31.0 PG 02/13/2023 4:23 PM CDT [facility] MCHC 32.6(L) 33.0 - 36.0 G/DL 02/13/2023 4:23 PM CDT [facility] RDW 12.7 11.5 - 14.5 % 02/13/2023 4:23 PM CDT [facility] PLT 367(H) 150 - 350 x10'3/uL 02/13/2023 4:23 PM CDT [facility] MPV 10.0 7.4 - 10.4 FL 02/13/2023 4:23 PM CDT [facility] CBC COMMENT NORMAL REFERENCE RANGE NOT ESTABLISHED FOR THE PROPORTIONAL LEUKOCYTE DIFFERENTIAL. 02/13/2023 4:23 PM CDT [facility] NEUTROPHILS % 60.0 % 02/13/2023 4:23 PM CDT [facility] LYMPHOCYTES % 28.0 % 02/13/2023 4:23 PM CDT [facility] MONOCYTES % 6.8 % 02/13/2023 4:23 PM CDT [facility] EOSINOPHILS % 4.0 % 02/13/2023 4:23 PM CDT [facility] BASOPHILS % 0.9 % 02/13/2023 4:23 PM CDT [facility] IMMATURE GRANS % 0.3 % 02/14/20 4:23 PM CDT [facility] NRBC 0.0 % 02/13/2023 4:23 PM CDT [facility] ABS. NEUTROPHILS 5.58 1.60 - 8.30 x10'3/uL 02/13/2023 4:23 PM CDT [facility] ABS. LYMPHOCYTES 2.60 0.80 - 4.70 x10'3/uL 02/13/2023 4:23 PM CDT [facility] ABS. MONOCYTES 0.63 0.00 - 1.50 x10'3/uL 02/13/2023 4:23 PM CDT [facility] ABS. EOSINOPHILS 0.37 0.00 - 0.40 x10'3/uL 02/13/2023 4:23 PM CDT [facility] ABS. BASOPHILS 0.08 0.00 - 0.20 x10'3/uL 02/13/2023 4:23 PM CDT [facility] ABS. IMMATURE GRANULOCYTES 0.03 0.00 - 0.03 x10'3/uL 02/13/2023 4:23 PM CDT [facility] ABS. NUCLEATED RBC'S 0.00 0.00 x10'3/uL 02/13/2023 4:23 PM CDT [facility] 02/13/2023 3:46 PM CDT us Roldan Rader MD LABORATORY Final Result [facility] [address] [place] [address], * (ABNORMAL) BASIC METABOLIC PANEL (02/13/2023 3:46 PM CDT) SODIUM S/P/B 140 136 - 145 MMOL/L 02/13/2023 4:16 PM CDT [facility] POTASSIUM S/P/B 4.1 3.5 - 5.1 MMOL/L 02/13/2023 4:16 PM CDT [facility] CHLORIDE S/P/B 102 98 - 107 MMOL/L 02/13/2023 4:16 PM CDT [facility] CO2 28.1 21.0 - 32.0 MMOL/L 02/13/2023 4:16 PM CDT [facility] GLUCOSE 92 70 - 99 MG/DL 02/13/2023 4:16 PM CDT [facility] Comment: FASTING GLUCOSE 100 TO 125 MG/DL IS CONSISTENT WITH IMPAIRED FASTING GLUCOSE. FASTING GLUCOSE >125 MG/DL IS CONSISTENT WITH DIABETES. RANDOM GLUCOSE >200 MG/DL WITH HYPERGLYCEMIC SYMPTOMS IS CONSISTENT WITH DIABETES. PER ADA GUIDELINES BUN 15 6 - 24 MG/DL 02/13/2023 4:16 PM CDT [facility] CREATININE S/P/B 0.88 0.55 - 1.02 MG/DL 02/13/2023 4:16 PM CDT [facility] CALCIUM S/P/B 10.2 8.4 - 10.5 MG/DL 02/13/2023 4:16 PM CDT [facility] ANION GAP 9.9 5.0 - 15.0 MMOL/L 02/13/2023 4:16 PM CDT [facility] OSMOLALITY (CALC) 290 MOSM/KG 023 4:16 PM CDT [facility] Comment:REFERENCE RANGE NOT ESTABLISHED GFR ESTIMATE 72(L) >89 ML/MIN/1. 73 M2 02/13/2023 4:16 PM CDT [facility] GFR NOTES GFR REFERENCE S: 02/13/2023 4:16 PM CDT [facility] Comment: THE ESTIMATED GFR [...] ml/min/1.73 m2 G5,KIDNEY FAILURE: <15 ml/min/1.73 m2 02/13/2023 3:46 PM CDT Roldan Rader MD LABORATORY Final Result Performing Organization Address City/[facility]/ZIP Co de Phone Number [facility] [address] [place] [address], * MRSA SCREENING (02/13/2023 3:41 PM CDT) SOURCE RESPIRATORY, NOSE 02/13/2023 3:36 PM CDT [facility] MRSA BY PCR NASAL METHICILLIN RESISTANT STAPH AUREUS NOT DETECTED METHICILLIN RESISTANT STAPH AUREUS NOT DETECTED 02/15/2023 11:32 AM CDT [facility] NASAL STRUCTURE / Unknown 02/13/2023 3:41 PM CDT Roldan Rader MD MICROBIOLOGY - GENERAL ORDERAB LES Final Result Performing Organization Address [facility]/ZIP Co de Phone Number [facility] [address] [place] [address], [place] [phone] [facility] [address] [place] [address], * (ABNORMAL) URINALYSIS WI REFLEX TO CULTURE (02/13/2023 3:40 PM CDT) COLOR (U) YELLOW 02/13/2023 4:46 PM CDT [facility] TRANSPARENCY CLEAR 02/13/2023 4:46 PM CDT [facility] SPECIFIC GRAVITY (U) 1.020 1.000 - 1.025 02/13/2023 4:46 PM CDT [facility] U PH 7.5 5.0 - 8.0 02/13/2023 4:46 PM CDT [facility] LEUKOCYTES (U) TRACE(A) NEGATIVE 02/13/2023 4:46 PM CDT [facility] NITRITES NEGATIVE NEGATIVE 02/13/2023 4:46 PM CDT [facility] PROTEIN RANDOM (U) TRACE(A) NEGATIVE 02/13/2023 4:46 PM CDT [facility] GLUCOSE (U) NEGATIVE NEGATIVE 02/13/2023 4:46 PM CDT [facility] KETONES MG/DL (U) NEGATIVE NEGATIVE 02/13/2023 4:46 PM CDT [facility] UROBILINOGEN 0.2 <1.0 EU/DL 02/13/2023 4:46 PM CDT [facility] BILIRUBIN (U) NEGATIVE NEGATIVE 02/13/2023 4:46 PM CDT [facility] BLOOD (U) NEGATIVE NEGATIVE 02/13/2023 4:46 PM CDT [facility] WBC/HPF 5-10(A) 0 - 5 /HPF 02/13/2023 4:46 PM CDT [facility] RBC/HPF 0-5 0 - 5 /HPF 02/13/2023 4:46 PM CDT [facility] EPI/LPF 0-5 /LPF 02/13/2023 4:46 PM CDT [facility] BACTERIA (U) TRACE /HPF 02/13/2023 4:46 PM CDT [facility] MUCUS FEW 02/13/2023 4:46 PM CDT [facility] REFLEX URINE CULTURE: SPECIMEN SETUP FOR CULTURE 02/13/2023 4:46 PM CDT [facility] URINE SPECIMEN OBTAINED BY CLEAN CATCH PROCEDURE / Unknown 02/13/2023 3:40 PM CDT us Roldan Rader MD URINE ORDERABLES Final Result [facility] [address] [place] [address], documented in this encounter Visit Diagnoses Diagnosis 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
--- OUTSIDE RECORDS SUMMARY | 2024-04-23 21:38 | XMS_ITS | Encounter Summary ---
Author Organization [facility] Address [address] [place] [address]. [place] [address] [place] [address] Care Team Providers Care Finance Clerk Name Role Phone MushtaqAsif hanson Primary Care Provider [phone] Reason for Visit * Reason Onset Date Comments Information 04/03/2022 XR orders Encounter Details Date Type Department Care Team (Late st Contact Info) Description 04/03/2022 [facility]phone [facility] [address] [address] Kailash Argueta, DPM [address] [place] [address] Information (XR orders) Social History Tobacco Use Types Packs/Day Years [...] Sexual Orientation Straight 02/26/2023 1: 40 PM MILK DRIVER documented as of this encounter Progress Notes * Dulce Maria Fernandez MA - 04/03/2022 2:56 PM CST Called pt to let them know XR orders will be sent to [facility], and to get them done before appt with Kendall 04/06/22. Pt voiced understanding and is in agreement with this plan. DRIVER documented in this encounter Plan of Treatment Upcoming Encounters Date Type Department Care Team (Late st Contact Info) Description 04/29/2024 1:45 PM MILK DRIVER Office Visit [facility] [address] [facility] [address] [place], [place] [id number] Sujatha Solis, MANAGER TRAVEL- [address] [place] [address] [place] [address] documented as of this encounter Visit Diagnoses Not on filedocumented in this encounter Care Teams Finance Clerk Relationship Specialty Start Date End Date Asif Coto DO [address] [place] [address] PCP - General FAMILY PRACTICE 09/29/21 documented as of this encounter
--- OUTSIDE RECORDS SUMMARY | 2024-04-23 21:38 | XMS_ITS | Encounter Summary ---
Author Organization [facility] Address [address] [place] [address]. [place] [address] [place] [address] Care Team Providers Care Chief Compliance Officer Name Role Phone Asif Coto Primary Care Provider [phone] Encounter Details Date Type Department Care Team (Late Contact Info) Description 11/14/2022 Orders Only [address] [address] Roldan Rader MD [address] [place] [address] Social History Tobacco Use Types Packs/Day [...] Sexual Orientation Straight 02/26/2023 1: 40 PM COMPLIANCE ADMINISTRATOR documented as of this encounter Plan of Treatment Upcoming Encounters Date Type Department Care Team (Late Contact Info) Description 04/29/2024 1:45 PM COMPLIANCE ADMINISTRATOR Office Visit [address] [address] Sujatha Solis, MICROWAVE ENGINEER-BC [address] [place] [address] documented as of this encounter Visit Diagnoses Not on filedocumented in this encounter Care Teams Chief Compliance Officer Relationship Specialty Start Date End Date Asif Coto DO [address] [place] [address] PCP - General FAMILY PRACTICE 09/29/21 documented as of this encounter
--- OUTSIDE RECORDS SUMMARY | 2024-04-23 21:38 | XMS_ITS | Encounter Summary ---
Author Organization [facility] Address [address] [place] [address]. [place] [address] [place] [address] Care Team Providers Care Decorator Hand Name Role Phone MushtaqAsif hanson Primary Care Provider [phone] Reason for Visit * Reason Comments Hip Pain LEFT Knee Pain RIGHT Encounter Details Date Type Department Care Team (Latest Contact Info) Description 01/30/2023 10:30 AM CDT Office Visit [facility] [address], [facility] 1 [place] [address] Roldan Rader MD [address] [place], [place] [id number] Hip Pain (LEFT); Knee Pain (RIGHT) Social History Tobacco Use [...] Sexual Orientation Straight 02/26/2023 1: 40 PM VICE PRESIDENT PLANNING documented as of this encounter Last Filed Vital Signs Vital Sign Reading Time Taken Comments Blood Pressure - - Pulse - - Temperature - - Respiratory Rate - - Oxygen Saturation - - Inhaled Oxygen Concentration - - Weight 77.1 kg (170 lb) 01/30/2023 10:36 AM CDT Height 165.1 cm (5' 5 ) 01/30/2023 10:36 AM CDT Body Mass Index 28.29 01/30/2023 10:36 AM CDT documented in this encounter Progress Notes * Maylin Dougherty MA - 01/30/2023 10:30 AM CDT Donna is a 67-year-old female who presents for Hip Pain (LEFT) and Knee Pain (RIGHT) Patient reports to clinic today for LEFT hip pain. Patient denies pain. Denies numbness, tingling, bruising and swelling. Patient denies night pain. Patient reports she is not taking any pain medication. Patient does not use ice or heat on LEFT hip. Patient walks with a cane. Patient had injection to LEFT hip 09/22/2022. Patient reports pain to RIGHT knee. Patient describes pain to her kneecap. She denies numbness, tingling, bruising and swelling. Patient reports pain worsens when applying pressure. Patient reports night pain. Patient does not take any pain medication. Patient does not use ice or heat. Patient usescane to walk. Patient is retired. No additional nursing task documentation needed. Vitals: 01/30/23 1036 Weight: 77.1 kg (170 lb) Height: 1.651 m (5' 5 ) Current Outpatient Medications Medication Sig amLODIPine 10 MG tablet atorvastatin 40 MG tablet Blood Glucose Monitoring Suppl (TRUE METRIX METER) w/Device Kit clobetasol (TEMOVATE) 0.05 % cream Apply topically 2 (two) times daily. Coconut Oil 1000 MG Cap Take 3,000 [...] mcg total) by mouth every morning. lisinopril 20 MG tablet 5 mg. losartan (COZAAR) 50 MG tablet meloxicam (MOBIC) 15 MG tablet Take 0.5 tablets (7.5 mg total) by mouth daily. metFORMIN ER 500 MG 24 hr tablet Misc Natural Products (OSTEO BI-FLEX ADV TRIPLE ST) Tab Take 1 tablet by mouth 2 (two) times a day. [place]-3 Fatty Acids (FISH OIL) 500 MG capsule Take 1,000 mg by mouth daily. traZODone 50 MG tablet TRUE METRIX BLOOD GLUCOSE TEST test strip TRUEplus Lancets 33G Misc vitamin D3 (CHOLECALCIFEROL) 25 mcg tablet Take 1 tablet (25 mcg total) by mouth daily. Past Surgical History: Procedure Laterality Date BACK SURGERY x3 FOOT SURGERY Left 07/27/2022 FOOT SURGERY Right 2001 KNEE ARTHROPLASTY Right 04/01/2014 PUMP INFILTRATION Left pain pump Allergies Patient has no known allergies. [x] Total Jyyl-mo-Nzdp Assessment Time: 0-15 minutes Additional Contributory Factors NONE * Roldan Rader MD - 01/30/2023 10:30 AM CDT Chief [...] (two) times a day., Disp: , Rfl: [place]-3 Fatty Acids (FISH OIL) 500 MG capsule, Take 1,000 mg by mouth daily., Disp: , Rfl: traZODone 50 MG tablet, , Disp: , Rfl: TRUE METRIX BLOOD GLUCOSE TEST test strip, , Disp: , Rfl: TRUEplus Lancets 33G Misc, , Disp: , Rfl: vitamin D3 (CHOLECALCIFEROL) [...] 02/26/2023. Follow up: Return for Post-Op. ROLDAN RADER MD documented in this encounter Plan of Treatment Upcoming Encounters Date Type Department Care Team (Late st Contact Info) Description 04/29/2024 1:45 PM VICE PRESIDENT PLANNING Office Visit [facility] [place] [address] [address] Sujatha Solis, EQUAL OPPORTUNITY SPECIALIST- [address] [place] [address] documented as of this encounter Results * XR KNEE RT 2V (01/30/2023 11:57 AM CDT) Anatomical Region Laterality Modality Knee Radiographic Chanel ging 01/30/2023 7:27 PM CDT Impressions 01/30/2023 7:29 PM CDT IMPRESSION: No acute findings. Referred By: ?? Interpreted By: Abimael Shannon MD, 01/30/2023 7:27 PM Narrative 01/30/2023 7:29 PM CDT Examination: Bilateral knees. Exam time: 1025 hours. Clinical history: Right knee pain. ??Prior arthroplasty. Comparison: Bilateral knees, 08/08/2022. Technique: Bilateral weightbearing PA and sunrise and weightbearing lateral views on the right. Findings: No fracture, dislocation or other acute bony abnormality is identified. ??Arthroplasty on the right remains in place with the components in satisfactory alignment and position. ??There is stable mild femorotibial joint space narrowing on the left. ??No other significant bone or joint abnormality is noted. ??The soft tissues are unremarkable. Procedure Note Abimael Shannon MD - 01/30/2023 Examination: Bilateral knees. Exam time: 1025 hours. Clinical history: Right knee pain. Prior arthroplasty. Comparison: Bilateral knees, 08/08/2022. Technique: Bilateral weightbearing PA and sunrise and weightbearinglateral views on the right. Findings: No fracture, dislocation or other acute bony abnormality isidentified. Arthroplasty on the right remains in place with thecomponents in satisfactory alignment and position. There is stable mildfemorotibial joint space narrowing on the left. No other significant boneor joint abnormality is noted. The soft tissues are unremarkable. IMPRESSION: No acute findings. Referred By: Interpreted By: Abimael Shannon MD, 01/30/2023 7:27 PM Roldan Rader MD GENERAL IMAGING Final Result * XR KNEE STAND AP JENNIE ONLY (01/30/2023 11:57 AM CDT) Anatomical Region Laterality Modality Knee Radiographic Chanel ging 01/30/2023 7:27 PM CDT Impressions 01/30/2023 7:29 PM CDT IMPRESSION: No acute findings. Referred By: ?? Interpreted By: Abimael Shannon MD, 01/30/2023 7:27 PM Narrative 01/30/2023 7:29 PM CDT Examination: Bilateral knees. Exam time: 1025 hours. Clinical history: Right knee pain. ??Prior arthroplasty. Comparison: Bilateral knees, 08/08/2022. Technique: Bilateral weightbearing PA and sunrise and weightbearing lateral views on the right. Findings: No fracture, dislocation or other acute bony abnormality is identified. ??Arthroplasty on the right remains in place with the components in satisfactory alignment and position. ??There is stable mild femorotibial joint space narrowing on the left. ??No other significant bone or joint abnormality is noted. ??The soft tissues are unremarkable. Procedure Note Abimael Shannon MD - 01/30/2023 Examination: Bilateral knees. Exam time: 1025 hours. Clinical history: Right knee pain. Prior arthroplasty. Comparison: Bilateral knees, 08/08/2022. Technique: Bilateral weightbearing PA and sunrise and weightbearinglateral views on the right. Findings: No fracture, dislocation or other acute bony abnormality isidentified. Arthroplasty on the right remains in place with thecomponents in satisfactory alignment and position. There is stable mildfemorotibial joint space narrowing on the left. No other significant boneor joint abnormality is noted. The soft tissues are unremarkable. IMPRESSION: No acute findings. 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
--- OUTSIDE RECORDS SUMMARY | 2024-04-23 21:38 | XMS_ITS | Encounter Summary ---
Author Organization [facility] Address [address] [place] [address]. [place] [address] [place] [address] Care Team Providers Care Financial Foundations Representative Name Role Phone MushtaqAsif hanson Primary Care Provider [phone] Encounter Details Date Type Department Care Team (Latest Contact Info) Description 09/29/2022 8:47 AM CDT - 09/29/2022 11:59 PM CDT Hospital Encounter [facility] [address] [facility] [place] [address] Roldan Rader MD [address] [place] [address] Discharge Disposition: Home or Self [...] Sexual Orientation Straight 02/26/2023 1: 40 PM DIVERSIFIED CROPS FARMER COVID-19 Exposure Response Date Recorded In the last 10 days, have yo u been in contact with someone who was confirmed or suspected to have Coronavirus/COVID-19? No / Unsure 09/29/2022 8:45 AM CDT documented as of this encounter Medications at [...] 2 (two) times daily as needed. 07/13/2022 lisinopril (PRINIVIL) 5 MG tablet Take 1 tablet (5 mg total) by mouth daily. 12/29/2020 losartan (COZAAR) 50 MG tablet Take 1 tablet (50 mg total) by mouth daily. 08/21/2022 metFORMIN ER 500 MG 24 hr tablet Take 1 tablet (500 mg total) by mouth nightly at bedtime. 05/13/2021 [facility] Natural Products (OSTEO BI-FLEX ADV TRIPLE ST) Tab Take 1 tablet by mouth 2 (two) times a day. [place]-3 Fatty Acids (FISH OIL) 500 MG capsule Take 1,000 mg by mouth daily. TRUE METRIX BLOOD GLUCOSE TEST test strip 01/10/2021 TRUEplus Lancets 33G [facility] 01/10/2021 vitamin D3 (CHOLECALCIFEROL) 25 mcg tablet Take 1 tablet (25 mcg total) by mouth daily. HYDROcodone-acetamin ophen (NORCO) 5-325 MG tabletIndications:Ac abby Pain < 7 Day Supply Take 1 tablet by mouth every 4 (four) hours as needed for Pain. Indications: Acute Pain < 7 Day Supply 42 tablet 07/27/2022 3 Levothyroxine Sodium 50 MCG Cap Take 75 mcg by mouth every morning. 07/25/2022 4 lisinopril 5 MG tablet 05/23/2021 3 meloxicam (MOBIC) 15 MG tabletIndications:Pr imary osteoarthritis of left knee Take 0.5 tablets (7.5 mg total) by mouth daily. 30 tablet 2 08/08/2022 4 RYBELSUS 14 MG Tab 09/28/2022 3 RYBELSUS 7 MG Tab 08/22/2022 02 3 traZODone 50 MG tablet Take 1 tablet (50 mg total) by mouth nightly at bedtime. 05/12/2021 4 documented as of this encounter Plan of Treatment Upcoming Encounters Date Type Department Care Team (Late st Contact Info) Description 04/29/2024 1:45 PM DIVERSIFIED CROPS FARMER Office Visit [facility] [address] [facility] 1 [place] [address] Sujatha Solis, LOGISTICS LOSS PREVENTION MANAGER- [address] [facility] [place] [address] documented as of this encounter Procedures Procedure Name Priority Date/Time Associated Diagnosis Comments XR HIP INJ/ASP LT Routine 09/29/2022 9:3 1 AM CDT Primary osteoarthritis of left hip documented in this encounter Results * XR HIP INJ/ASP LT (09/29/2022 9:31 AM CDT) Anatomical Region Laterality Modality Hip Radiographic Chanel ging, Radiographic Imaging 09/29/2022 4:20 PM CDT Impressions 09/29/2022 4:27 PM CDT IMPRESSION: THERAPEUTIC LEFT HIP JOINT INJECTION UNDER FLUOROSCOPY, DESCRIBED. Ordered By: ROLDAN RADER Interpreted By: Vik Pinto MD, 09/29/2022 4:20 PM Narrative 09/29/2022 4:27 PM CDT Examination: XR HIP INJ/ASP LT Exam time: 09/29/2022 8:52 AM Clinical history: Left hip pain and arthritis. Comparison: Pelvis from 09/22/2022. Technique/Findings: After informed consent, the patient was prepped and draped in sterile fashion. 1% lidocaine administered for local anesthesia. Under fluoroscopy, a 3 1/2 inch 20-gauge spinal needle was inserted into the left hip joint space. After confirmation of intra-articular location, approximately 2 mL Isovue-300 was injected. Subsequent injection of 80 mg Depo-Medrol and 4 mL 1% lidocaine with epinephrine. Patient tolerated tissue without difficulty. Total fluoroscopy time 0.7 minutes. Total exposure 19.37 mGy. Procedure Note Vik Pinto MD - 09/29/2022 Examination: XR HIP INJ/ASP LT Exam time: 09/29/2022 8:52 AM Clinical history: Left hip pain and arthritis. Comparison: Pelvis from 09/22/2022. Technique/Findings: After informed consent, the patient was prepped anddraped in sterile fashion. 1% lidocaine administered for local anesthesia.Under fluoroscopy, a 3 1/2 inch 20-gauge spinal needle was inserted intothe left hip joint space. After confirmation of intra-articular location,approximately 2 mL Isovue-300 was injected. Subsequent injection of 80 mgDepo-Medrol and 4 mL 1% lidocaine with epinephrine. Patient toleratedtissue without difficulty. Total fluoroscopy time 0.7 minutes. Total exposure 19.37 mGy. IMPRESSION: THERAPEUTIC LEFT HIP JOINT INJECTION UNDER FLUOROSCOPY, DESCRIBED. Ordered By: ROLDAN RADER Interpreted By: Vik Pinto MD, 09/29/2022 4:20 PM Roldan Rader MD FLUOROSCOPY Final Result documented in this encounter Visit Diagnoses Diagnosis Primary osteoarthritis of left hip Primary localized osteoarthrosis, pelvic region and thigh documented in this encounter Administered Medications Inactive Administered Medications - up to 3 most recent administrations Medication Order MAR Action Action Date Dose Rate Site lidocaine-EPINEPHrine 1 %-1:[id number] injection 1 mL 1 mL, Other, Once, 1 dose, On Sun09/29/22 at 0915, 4ML INTRA-ARTICULAR LEFT HIP WITH DEPO-MEDROL Given 09/29/2022 9:45 AM CDT 1 mL Left Hip methylPREDNISolone acetate (DEPO-Medrol) injection 80 mg 80 mg, Intra-articular, Once, 1 dose, On Sun09/29/22 at 0915, Shake Well Given 09/29/2022 9:45 AM CDT 80 mg Left Hip documented in this encounter Care Teams Financial Foundations Representative Relationship Specialty Start Date End Date Asif Coto DO [facility] [place] [address] PCP - General FAMILY PRACTICE 09/29/21 documented as of this encounter
--- OUTSIDE RECORDS SUMMARY | 2024-04-23 21:38 | XMS_ITS | Encounter Summary ---
Author Organization [facility] Address [address] [place] [address]. [place] [address] [place] [address] Care Team Providers Care Heel Attacher Wood Name Role Phone Asif Coto Primary Care Provider [phone] Encounter Details Date Type Department Care Team (Latest Contact Info) Description 10/27/2022 Travel Social History Tobacco Use Types Packs/Day [...] Sexual Orientation Straight 02/26/2023 1: 40 PM FOREIGN LANGUAGE TEACHER COVID-19 Exposure Response Date Recorded In the last 10 days, have yo u been in contact with someone who was confirmed or suspected to have Coronavirus/COVID-19? No / Unsure 09/29/2022 8:45 AM CDT documented as of this encounter Plan of Treatment Upcoming Encounters Date Type Department Care Team (Late st Contact Info) Description 04/29/2024 1:45 PM FOREIGN LANGUAGE TEACHER Office Visit [facility] [address] [facility] 1 [place] [address] Sujatha Solis, RETORT FIRER-BC [address] [facility] [place] [address] documented as of this encounter Visit Diagnoses Not on filedocumented in this encounter Care Teams Heel Attacher Wood Relationship Specialty Start Date End Date Asif Coto DO [address] [place] [address] PCP - General FAMILY PRACTICE 09/29/21 documented as of this encounter
--- OUTSIDE RECORDS SUMMARY | 2024-04-23 21:38 | XMS_ITS | Encounter Summary ---
Author Organization [facility] Address [address] [place] [address]. [place] [address] [place] [address] Care Team Providers Care Digital Marketing Consultant Name Role Phone Asif Coto DO Primary Care Provider [phone] Encounter Details Date Type Department Care Team (Latest Contact Info) Description 02/16/2023 Travel Social History Tobacco Use Types Packs/Day Years Used Date Smoking Tobacco: Never Smokeless Tobacco: Never Alcohol Use Standard Drinks/Week Comments Not Currently 0 (1 standard drink = 0.6 oz pur e alcohol) Comments No Sex and Gender Information Value Date Recorded Sex Assigned at Female 08/07/2022 4:17 PM CDT Legal Sex Female 8:54 PM CDT Gender Identity Female 08/07/2022 4:17 PM CDT Sexual Orientation Straight 02/26/2023 1: 40 PM DRILL PUNCH OPERATOR documented as of this encounter Plan of Treatment Upcoming Encounters Date Type Department Care Team (Late st Contact Info) Description 04/29/2024 1:45 PM DRILL PUNCH OPERATOR Office Visit [facility] [place] [id number] [facility] 1 [place] [address] Sujatha Solis, CREPE SOLE WIRE BRUSHER- [address] [facility] [place] [place] [address] documented as of this encounter Visit Diagnoses Not on filedocumented in this encounter Care Teams Digital Marketing Consultant Relationship Specialty Start Date End Date Asif Coto DO [address] [place] [address] PCP - General FAMILY PRACTICE 09/29/21 documented as of this encounter
--- OUTSIDE RECORDS SUMMARY | 2024-04-23 21:38 | XMS_ITS | Encounter Summary ---
Author Organization [facility] Address [address] [place] [address]. [place] [address] [place] [address] Care Team Providers Care Principal Account Clerk Name Role Phone Unavailable Primary Care Provider Unavailabl e Encounter Details Date Type Department Care Team (Late st Contact Info) Description 09/01/2015 [facility] CARDIOVASCULAR CONSULTANTS [facility] [address] [place] [address] , Emma Foy MD Social History Tobacco Use Types Packs/Day Years Used Date Smoking Tobacco: Never Assessed Comments Unknown Sex and Gender Information Value Date Recorded Sex Assigned at Female 08/07/2022 4:17 PM CDT Legal Sex Female 8:54 PM CDT Gender Identity Female 08/07/2022 4:17 PM CDT Sexual Orientation Straight 02/26/2023 1: 40 PM CONSTRUCTION CHECKER documented as of this encounter Plan of Treatment Upcoming Encounters Date Type Department Care Team (Late st Contact Info) Description 04/29/2024 1:45 PM CONSTRUCTION CHECKER Office Visit [facility] [address] [facility] 1 [place] [address] Sujatha Solis, UNITIZER- [address] [facility] [place] [address] documented as of this encounter Visit Diagnoses Not on filedocumented in this encounter
--- OUTSIDE RECORDS SUMMARY | 2024-04-23 21:38 | XMS_ITS | Encounter Summary ---
Author Organization [facility] Address [address] [place] [address]. [place] [address] [place] [address] Care Team Providers Care Speech And Language Clinician Name Role Phone Asif Coto Primary Care Provider [phone] Encounter Details Date Type Department Care Team (Late Contact Info) Description 11/11/2021 Orders Only [facility] [address] [facility] [facility] [place] [address] Kailash Argueta, DPM [address] [place] [address] Social History Tobacco Use Types Packs/Day Years [...] Sexual Orientation Straight 02/26/2023 1: 40 PM PEDIATRIC PHYSICIAN ASSISTANT documented as of this encounter Plan of Treatment Upcoming Encounters Date Type Department Care Team (Late Contact Info) Description 04/29/2024 1:45 PM PEDIATRIC PHYSICIAN ASSISTANT Office Visit 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
--- OUTSIDE RECORDS SUMMARY | 2024-04-23 21:38 | XMS_ITS | Encounter Summary ---
Author Organization [facility] Address [address] [place] [address]. [place] [address] [place] [address] Care Team Providers Care Netsuite Consultant Name Role Phone MushtaqAsif hanson Primary Care Provider [phone] Reason for Visit * Reason Onset Date Comments Information 12/14/2021 Encounter Details Date Type Department Care Team (Late st Contact Info) Description 12/14/2021 Telephone [facility] [address] [address] Kailash Argueta, DPM [address] [place] [address] Information Social History Tobacco Use Types Packs/Day [...] Sexual Orientation Straight 02/26/2023 1: 40 PM CULTURE MANAGER documented as of this encounter Progress Notes * Dulce Maria Fernandez MA - 12/14/2021 5:09 PM CDT Called pt and left voicemail letting them know XR orders will be sent to [facility] and to get them done before appt with Kendall 12/16/21. documented in this encounter Plan of Treatment Upcoming Encounters Date Type Department Care Team (Late st Contact Info) Description 04/29/2024 1:45 PM CULTURE MANAGER Office Visit [facility] [place] [address] [facility] 1 [place] [address] Sujatha Solis, ENTREPRENEURSHIP PROGRAM DIRECTOR- [address] [facility] [address] documented as of this encounter Visit Diagnoses Not on filedocumented in this encounter Care Teams Netsuite Consultant Relationship Specialty Start Date End Date Asif Coto DO [address] [place] [address] PCP - General FAMILY PRACTICE 09/29/21 documented as of this encounter
--- OUTSIDE RECORDS SUMMARY | 2024-04-23 21:38 | XMS_ITS | Encounter Summary ---
Author Organization [facility] Address [address] [place] [address]. [place] [address] [place] [address] Care Team Providers Care Sanding Machine Buffer Name Role Phone Katelyn Hood Primary Care Provider [phone] Reason for Visit * Reason Comments Surgery Encounter Details Date Type Department Care Team (Late st Contact Info) Description 11/01/2021 8:00 AM CDT Office Visit [facility] [address] [place], [place] [address] Jasmyne Fay, DPGray [address] [place] [address] Surgery Social History Tobacco Use Types Packs/Day [...] Sexual Orientation Straight 02/26/2023 1: 40 PM EMERGENCY DOCTOR documented as of this encounter Progress Notes * Jasmyne Fay MD - 11/01/2021 8:00 AM CDT Reason for Visit: surgery History of Present Illness: Patient presents for surgery on her left foot today. Review Of Systems: Negative except the HPI. [...] Status ??? Other (Not Specified) PHYSICAL EXAM Nonpalpable pedals pulses bilaterally. Absent pedal hair growth bilaterally. Digits are cool to thetouch bilaterally. ?? Left great toe is laterally deviated abutting the second toe with medial deviation the first metatarsal head creating a very prominent bunion deformity, there is interdigital erythema but no ulceration. Prominent bunion deformity over the left first and fifth metatarsal heads. The left great toe joint is reducible with minimal lateral tracking during range of motion. Light touch sensation intact per Cotati Jason monofilament wire. Diminished medial arch height bilaterally. There is instability of the left medial column, specifically I believe this is from the naviculocuneiform joint as opposed to the first metatarsocuneiform joint. Purple slightly fluctuant tender skin lesion to the tip of the left third toe measuring 1 x 0.8 cm,this is consistent with a hemangioma. There were no vitals filed for this visit. No results found for: WBC, RBC, HGB, [...] None Diagnoses/Impression: Encounter Diagnose(s) ICD-10-CM ICD-9-CM 1. 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 Hallux valgus with bunions of left foot M20.12 735.0 E0118 - [facility] M21.612 727.1 3. Tailor's bunion of left foot M21.622 727.1 E0118 - [facility] 4. Hemangioma of skin D18.01 228.01 Recommendations and Plan: We discussed the planned procedure at length. The patient will be immediately weightbearing in a surgical shoe. She was given [place] 10 mg and ibuprofen to be taken as directed for pain. She will follow-up outpatient in 10 to 14 days. She was dispensed a spring-loaded mobile crutch substitute to assist with partial weightbearing. All questions answered, no promises or guarantees made. JASMYNE FAY MD Referring Provider: No ref. provider found PCP: KATELYN HOOD DO documented in this encounter Plan of Treatment Upcoming Encounters Date Type Department Care Team (Late st Contact Info) Description 04/29/2024 1:45 PM EMERGENCY DOCTOR Office Visit [facility] [address] [facility] 1 [place] [address] Sujatha Solis, FIRST BREAKER FEEDER- [address] 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
--- OUTSIDE RECORDS SUMMARY | 2024-04-23 21:38 | XMS_ITS | Encounter Summary ---
Author Organization [facility] Address [address] [place] [address]. [place] [address] [place] [address] Care Team Providers Care Rn Sane Name Role Phone Asif Coto Primary Care Provider [phone] Encounter Details Date Type Department Care Team (Latest Contact Info) Description 09/29/2022 Travel Social History Tobacco Use Types Packs/Day [...] Sexual Orientation Straight 02/26/2023 1: 40 PM GANG RIPSAW OPERATOR COVID-19 Exposure Response Date Recorded In the last 10 days, have yo u been in contact with someone who was confirmed or suspected to have Coronavirus/COVID-19? No / Unsure 09/29/2022 8:45 AM CDT documented as of this encounter Plan of Treatment Upcoming Encounters Date Type Department Care Team (Late st Contact Info) Description 04/29/2024 1:45 PM GANG RIPSAW OPERATOR Office Visit [facility] [place] [address] [facility] 1 [place] [address] Sujatha Solis, REPORTING ANALYST-BC [address] [facility] [place] [address] documented as of this encounter Visit Diagnoses Not on filedocumented in this encounter Care Teams Rn Sane Relationship Specialty Start Date End Date Asif Coto DO [address] [place] [address] PCP - General FAMILY PRACTICE 09/29/21 documented as of this encounter
--- OUTSIDE RECORDS SUMMARY | 2024-04-23 21:38 | XMS_ITS | Encounter Summary ---
Author Organization [facility] Address [address] [place] [address]. [place] [address] [place] [address] Care Team Providers Care Traffic Signal Mechanic Name Role Phone Asif Coto DO Primary Care Provider [phone] Encounter Details Date Type Department Care Team (Latest Contact Info) Description 11/14/2022 Travel Social History Tobacco Use Types Packs/Day [...] Sexual Orientation Straight 02/26/2023 1: 40 PM HOTEL RESERVATION AGENT documented as of this encounter Plan of Treatment Upcoming Encounters Date Type Department Care Team (Late st Contact Info) Description 04/29/2024 1:45 PM HOTEL RESERVATION AGENT [facility] [place] [id number] [facility] 1 [place] [address] Sujatha Solis, SHOELACE TIPPING MACHINE OPERATOR- [address] [facility] [place] [address] documented as of this encounter Visit Diagnoses Not on filedocumented in this encounter Care Teams Traffic Signal Mechanic Relationship Specialty Start Date End Date Asif Coto DO [address] [place] [address] PCP - General FAMILY PRACTICE 09/29/21 documented as of this encounter
--- OUTSIDE RECORDS SUMMARY | 2024-04-23 21:38 | XMS_ITS | Encounter Summary ---
Author Organization [facility] Address [address] [place] [address]. [place] [address] [place] [address] Care Team Providers Care Fruit Grader Operator Name Role Phone John Strange COCO Primary Care Provider [phone] Reason for Visit * Reason Comments Radiology Results Encounter Details Date Type Department Care Team (Late Contact Info) Description 07/01/2021 Scan [facility] of [address] [place] [address] Scanned, Documents Radiology Results Social History Tobacco Use Types Packs/Day Years [...] Sexual Orientation Straight 02/26/2023 1: 40 PM HOMICIDE SQUAD LIEUTENANT documented as of this encounter Plan of Treatment Upcoming Encounters Date Type Department Care Team (Late Contact Info) Description 04/29/2024 1:45 PM HOMICIDE SQUAD LIEUTENANT Office Visit [address] [address] Sujatha Solis, ASSISTANT SECRETARY-BC [address] [facility] [place] [address] Scheduled Orders Name Type Priority Associated Diagnoses Orde r Schedule IMAGE STUDY Imaging Routine Ordered: 06/15 documented as of this encounter Visit Diagnoses Not on filedocumented in this encounter Care Teams Fruit Grader Operator Relationship Specialty Start Date End Date [place] [address] [place] [address] PCP - General PREVENTIVE MEDICINE 07/25/18 09/28/21 documented as of this encounter
--- OUTSIDE RECORDS SUMMARY | 2024-04-23 21:38 | XMS_ITS | Encounter Summary ---
Author Organization [facility] Address [address] [place] [address]. [place] [address] [place] [address] Care Team Providers Care Driver Supervisor Name Role Phone MushtaqAsif hanson Primary Care Provider [phone] Reason for Visit * Reason Onset Date Comments Xray/ultrasound Order 09/12/2022 Outside xr ays performed at [facility] Encounter Details Date Type Department Care Team (Late st Contact Info) Description 09/12/2022 Telephone [facility] [place] [id number] Power Goldsmith, RN Xray/ultrasound Order (Outside xrays performed at [facility]) Social History Tobacco Use Types Packs/Day Years [...] Sexual Orientation Straight 02/26/2023 1: 40 PM FRONT DESK AGENT documented as of this encounter Progress Notes * KATIE Rees - 09/13/2022 10:01 AM CDT Reports received and patient notified. She states that she was laying down for these xrays. Rn did advise patient that she will get a standing xray when at office apt in order for more complete arthritis evaluation. Patient voices understanding and has no further questions at this time. Apt verified. * Power Goldsmith RN - 09/12/2022 11:15 AM CDT ----- Message from Norma Hu sent at 09/12/2022 11:00 AM CDT ----- Donna has an appointment on 09/[address] Rader. She called and wanted us to know that she had xrays taken over the weekend at the [facility]. Call placed to [facility] and left message with medical records to faxcopies of report to our office. documented in this encounter Plan of Treatment Upcoming Encounters Date Type Department Care Team (Late st Contact Info) Description 04/29/2024 1:45 PM FRONT DESK AGENT Office Visit [address] [address] Sujatha Solis, [facility] [place] [address] documented as of this encounter Visit Diagnoses Not on filedocumented in this encounter Care Teams Driver Supervisor Relationship Specialty Start Date End Date Asif Coto DO [address] [place] [address] PCP - General FAMILY PRACTICE 09/29/21 documented as of this encounter
--- OUTSIDE RECORDS SUMMARY | 2024-04-23 21:38 | XMS_ITS | Encounter Summary ---
Author Organization [facility] Address [address] [place] [address]. [place] [address] [place] [address] Care Team Providers Care Catalogue Maker Name Role Phone Unavailable Primary Care Provider Unavailabl e Encounter Details Date Type Department Care Team (Late Contact Info) Description 04/20/2014 Abstract [facility] [address] [place] [address] Iván Josue MD [address] [place] [address] [address] [address] [place], [place] [address] Social History Tobacco Use Types Packs/Day Years Used Date Smoking Tobacco: Never Assessed Comments Unknown Sex and Gender Information Value Date Recorded Sex Assigned at Female 08/07/2022 4:17 PM CDT Legal Sex Female 8:54 PM CDT Gender Identity Female 08/07/2022 4:17 PM CDT Sexual Orientation Straight 02/26/2023 1: 40 PM RN STARS documented as of this encounter Plan of Treatment Upcoming Encounters Date Type Department Care Team (Late Contact Info) Description 04/29/2024 1:45 PM RN STARS Office Visit [facility] [address] [place] [address] 1 [place] [address] Sujatha Solis, APPLICATION DEVELOPMENT TEAM LEAD-BC [address] [place] [address] documented as of this encounter Visit Diagnoses Diagnosis Encounter for therapeutic drug monitoring documented in this encounter
--- OUTSIDE RECORDS SUMMARY | 2024-04-23 21:38 | XMS_ITS | Encounter Summary ---
Author Organization [facility] Address [address] [place] [address]. [place] [address] [place] [address] Care Team Providers Care Professional Athlete Name Role Phone MushtaqVivi hansonvarsha GANDARA Primary Care Provider [phone] Reason for Visit * Reason Onset Date Comments Appointment Request 02/05/2023 Encounter Details Date Type Department Care Team (Late st Contact Info) Description 02/05/2023 Telephone [facility] [address], [address] [address] Sujatha Solis, [facility] [address] [place] [address] [place] [address] Appointment Request Social History Tobacco Use Types Packs/Day [...] Sexual Orientation Straight 02/26/2023 1: 40 PM EDGE BANDER HAND documented as of this encounter Progress Notes * Trinity Griffin RN - 02/05/2023 11:20 AM CDT ----- Message from Kwesi Herrera sent at 02/05/2023 10:59 AM CDT ----- [place] called in to let us know they have called several times to try to set up an appt with Donna and cannot get ahold of her. They attempted calling her daughter as well and the phone call would not go thru. documented in this encounter Plan of Treatment Upcoming Encounters Date Type Department Care Team (Late st Contact Info) Description 04/29/2024 1:45 PM EDGE BANDER HAND Office Visit [facility] [place] [address] [facility] 1 [place] [address] Sujatha Solis, [facility]- [address] [place] [address] [place] [address] documented as of this encounter Visit Diagnoses Not on filedocumented in this encounter Care Teams Professional Athlete Relationship Specialty Start Date End Date Asif Coto DO [address] [place] [address] PCP - General FAMILY PRACTICE 09/29/21 documented as of this encounter
--- OUTSIDE RECORDS SUMMARY | 2024-04-23 21:38 | XMS_ITS | Encounter Summary ---
Author Organization [facility] Address [address] [place] [address]. [place] [address] [place] [address] Care Team Providers Care Prn Occupational Therapist Name Role Phone MushtaqKatelyn hanson Primary Care Provider [phone] Reason for Visit * Reason Comments Postop Followup Encounter Details Date Type Department Care Team (Late st Contact Info) Description 08/10/2022 8:45 AM CDT [facility] [address] [address] Jasmyne Fay, DPM [address] [place] [address] Postop Followup Social History Tobacco Use Types Packs/Day Years [...] Sexual Orientation Straight 02/26/2023 1: 40 PM OIL EXPELLER OPERATOR COVID-19 Exposure Response Date Recorded In the last 10 days, have yo u been in contact with someone who was confirmed or suspected to have Coronavirus/COVID-19? No / Unsure 08/08/2022 1:49 PM CDT documented as of this encounter Last Filed Vital Signs Vital Sign Reading Time Taken Comments Blood Pressure - - Pulse - - Temperature - - Respiratory Rate - - Oxygen Saturation - - Inhaled Oxygen Concentration - - Weight 78 kg (172 lb) 08/10/2022 9:08 AM CDT Height 165.1 cm (5' 5 ) 08/10/2022 9:08 AM CDT Body Mass Index 28.62 08/10/2022 9:08 AM CDT documented in this encounter Progress Notes * Jasmyne Fay MD - 08/10/2022 8:45 AM CDT Reason for Visit: Postop Followup History of Present Illness: Patient presents for her first postoperative visit status post hardware removal and removal of a prominent piece of bone below the fifth metatarsal on her left foot. She has had some pain. She presents today in a surgical shoe with her crutches. She has maintained the dressing clean dry and intact. Review Of Systems: Negative except the HPI. Medications: Current Outpatient Medications: amLODIPine 10 MG [...] times daily as needed., Disp: , Rfl: HYDROcodone-acetaminophen (NORCO) 5-325 MG tablet, Take 1 tablet by mouth every 4 (four) hours as needed for Pain. Indications: Acute Pain < 7 Day Supply (Patient not taking: Reported on 08/08/2022), Disp: 42 tablet, Rfl: 0 levothyroxine (SYNTHROID) 75 MCG tablet, Take 1 tablet (75 mcg total) by mouth every morning., Disp: , Rfl: lisinopril 20 MG tablet, 5 mg., Disp: , Rfl: lisinopril 5 MG tablet, , Disp: , Rfl: meloxicam (MOBIC) 15 MG tablet, Take 0.5 tablets (7.5 mg total) by mouth daily., Disp: 30 tablet, Rfl: 2 metFORMIN ER 500 MG 24 hr tablet, , Disp: , Rfl: Misc Natural Products (OSTEO BI-FLEX ADV TRIPLE ST) Tab, Take 1 tablet by mouth 2 (two) times a day., Disp: , Rfl: May-3 Fatty Acids (FISH OIL) 500 MG capsule, Take 1,000 mg by mouth daily., Disp: , Rfl: traZODone 50 MG tablet, , Disp: , Rfl: TRUE METRIX BLOOD GLUCOSE TEST test strip, , Disp: , Rfl: TRUEplus Lancets 33G Misc, , Disp: , Rfl: vitamin D3 (CHOLECALCIFEROL) 25 mcg tablet, Take 1 tablet (25 mcg total) by mouth daily., Disp: , Rfl: Allergies:No Known Allergies Past Medical History: Diagnosis Date Chronic back pain Hypertension Hypothyroidism, unspecified Mixed hyperlipidemia Past Surgical History: Procedure Laterality Date BACK SURGERY x3 FOOT SURGERY Left 07/27/2022 FOOT SURGERY Right 2001 KNEE ARTHROPLASTY Right 04/01/2014 Social History Socioeconomic History Marital status: Tobacco Use Smoking status: Never Smokeless tobacco: Never Vaping Use Vaping Use: Never used Substance and Sexual Activity Alcohol use: Not Currently Drug use: Never Family History Problem Relation Name Age of Onset Other (heart problems) Mother Cancer Father Thyroid Disease Other Family Status Relation Name Status Mother Father Other (Not Specified) PHYSICAL EXAM Left fifth ray incision is completely coapted today with expected surrounding edema, no dehiscence of the incision, no drainage minimal to no erythema. Neurovascular status intact. Radiographs: 3 views left foot are reviewed in the [facility] PACS system showing interval removalof 3 screws from the fifth metatarsal as well as the plantar chunk of bone sitting below the hardware on the lateral projection. 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 Previous right knee arthroplasty. 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 Previous right knee arthroplasty. Ordered By: KALINA Magana MASK LAYOUT DESIGNER Interpreted By: Frank Garcia MD, 08/08/2022 4:10 PM Diagnoses/Impression: Encounter Diagnose(s) ICD-10-CM ICD-9-CM 1. Postop check Z09 V67.00 Recommendations and Plan: Incision is well coapted, the patient can transition to a regular supportive running or walking shoe. No need for suture removal as she has running Monocryl in place. At this point she can follow-up as needed. JASMYNE FAY MD Referring Provider: No ref. provider found PCP: KATELYN HOOD DO documented in this encounter Plan of Treatment Upcoming Encounters Date Type Department Care Team (Late st Contact Info) Description 04/29/2024 1:45 PM OIL EXPELLER OPERATOR Office Visit [facility] [place] [address] [facility] 1 [place] [address] Sujatha Solis, TOOL POLISHING MACHINE OPERATOR- [address] [facility] [facility] [place] [address] documented as of this encounter Visit Diagnoses Diagnosis Postop check- Primary Follow-up examination, following unspecified surgery documented in this encounter Care Teams Prn Occupational Therapist Relationship Specialty Start Date End Date Katelyn Hood DO [address] [place] [address] PCP - General FAMILY PRACTICE 09/29/21 documented as of this encounter
--- OUTSIDE RECORDS SUMMARY | 2024-04-23 21:38 | XMS_ITS | Encounter Summary ---
Author Organization [facility] Address [address] [place] [address]. [place] [address] [place] [address] Care Team Providers Care Fixed Income Trading Vice President Name Role Phone MushtaqAsif hanson Primary Care Provider [phone] Reason for Visit * Reason Onset Date Comments Orders 08/09/2022 XR orders Encounter Details Date Type Department Care Team (Late st Contact Info) Description 08/09/2022 Telephone [facility] [address] [address] Kailash Argueta, DPM [address] [place] [address] Orders (XR orders) Social History Tobacco Use Types [...] Sexual Orientation Straight 02/26/2023 1: 40 PM EMTS COVID-19 Exposure Response Date Recorded In the last 10 days, have yo u been in contact with someone who was confirmed or suspected to have Coronavirus/COVID-19? No / Unsure 08/08/2022 1:49 PM CDT documented as of this encounter Progress Notes * Dulce Maria Fernandez MA - 08/09/2022 11:28 AM CDT Called pt to let them know XR orders will be sent to [facility] and to get them donebefore appt with Kendall 08/10/22. Pt voiced understanding and will call back with any questions. documented in this encounter Plan of Treatment Upcoming Encounters Date Type Department Care Team (Late st Contact Info) Description 04/29/2024 1:45 PM EMTS Office Visit [address] 1 [place] [address] Sujatha Solis, [facility]-[address] [place] [address] documented as of this encounter Visit Diagnoses Not on filedocumented in this encounter Care Teams Fixed Income Trading Vice President Relationship Specialty Start Date End Date Asif Coto DO [address] [place] [address] PCP - General FAMILY PRACTICE 09/29/21 documented as of this encounter
--- OUTSIDE RECORDS SUMMARY | 2024-04-23 21:38 | XMS_ITS | Encounter Summary ---
Author Organization [facility] Address [address] [place] [address]. [place] [address] [place] [address] Care Team Providers Care Pipelines Manager Name Role Phone MushtaqAsif hanson Primary Care Provider [phone] Encounter Details Date Type Department Care Team (Late Contact Info) Description 08/09/2022 Orders Only [facility] [address] [place] [address] Kailash Argueta, DPM [address] [place] [address] Social History Tobacco Use Types [...] Sexual Orientation Straight 02/26/2023 1: 40 PM LICENSED AND CERTIFIED MIDWIFE COVID-19 Exposure Response Date Recorded In the last 10 days, have yo u been in contact with someone who was confirmed or suspected to have Coronavirus/COVID-19? No / Unsure 08/08/2022 1:49 PM CDT documented as of this encounter Plan of Treatment Upcoming Encounters Date Type Department Care Team (Late Contact Info) Description 04/29/2024 1:45 PM LICENSED AND CERTIFIED MIDWIFE Office Visit [facility] [place] [address] [facility] 1 [place] [address] Sujatha Solis, AEROSPACE ASSEMBLER- [address] [facility] [place] [address] documented as of this encounter Visit Diagnoses Diagnosis Painful orthopaedic hardware (CMS/HCC)- Primary Exostosis of left foot Postoperative pain Other acute postoperative pain documented in this encounter Care Teams Pipelines Manager Relationship Specialty Start Date End Date Asif Coto DO [address] [place] [address] PCP - General FAMILY PRACTICE 09/29/21 documented as of this encounter
--- OUTSIDE RECORDS SUMMARY | 2024-04-23 21:38 | XMS_ITS | Encounter Summary ---
Author Organization [facility] Address [address] [place] [address]. [place] [address] [place] [address] Care Team Providers Care Marble Polisher Hand Name Role Phone RaviAsif becker Primary Care Provider [phone] Reason for Visit * Reason Onset Date Comments Prior Authorization 05/08/2022 Surgery 05/08/2022 Encounter Details Date Type Department Care Team (Late st Contact Info) Description 05/08/2022 Telephone [facility] [address] [place] [address] Kailash Argueta, DPM [address] [place] [address] Prior Authorization; Surgery Social History [...] Sexual Orientation Straight 02/26/2023 1: 40 PM IT TECHNICAL SUPPORT SPECIALIST documented as of this encounter Progress Notes * Shahrzad Holley, REGIONAL BRANCH MANAGER - 05/08/2022 10:24 AM CST Per [facility] portal CPT [id number] and [id number] no authorization is needed. TECHNICAL SUPPORT SPECIALIST documented in this encounter Plan of Treatment Upcoming Encounters Date Type Department Care Team (Late st Contact Info) Description 04/29/2024 1:45 PM IT TECHNICAL SUPPORT SPECIALIST Office Visit [facility] [place] [address] [facility] 1 [place], [place] [id number] Sujatha Solis, POLE INCISOR OPERATOR- [address] [place] [address] [place] [address] documented as of this encounter Visit Diagnoses Not on filedocumented in this encounter Care Teams Marble Polisher Hand Relationship Specialty Start Date End Date Asif Coto DO [address] [place] [address] PCP - General FAMILY PRACTICE 09/29/21 documented as of this encounter
--- OUTSIDE RECORDS SUMMARY | 2024-04-23 21:38 | XMS_ITS | Encounter Summary ---
Author Organization [facility] Address [address] [place] [address]. [place] [address] [place] [address] Care Team Providers Care Buttermilk Drier Operator Name Role Phone NnamdiAsif Primary Care Provider [phone] Encounter Details Date Type Department Care Team (Latest Contact Info) Description 01/09/2023 10:00 AM CDT - 01/09/2023 11:59 PM CDT Hospital Encounter [facility] [address] [facility] [place] [place] [address] Roldan Rader MD [address] [place] [address] Discharge Disposition: Home or Self [...] Sexual Orientation Straight 02/26/2023 1: 40 PM SOURCING MANAGER documented as of this encounter Medications at [...] total) by mouth nightly at bedtime. 05/13/2021 [facility] Natural Products (OSTEO BI-FLEX ADV TRIPLE ST) Tab Take 1 tablet by mouth 2 (two) times a day. [place]-3 Fatty Acids (FISH OIL) 500 MG capsule Take 1,000 mg by mouth daily. TRUE METRIX BLOOD GLUCOSE TEST test strip 01/10/2021 TRUEplus Lancets 33G [facility] 01/10/2021 vitamin D3 (CHOLECALCIFEROL) 25 mcg tablet Take 1 tablet (25 mcg total) by mouth daily. clobetasol (TEMOVATE) 0.05 % cream Apply topically 2 (two) times daily. 10/31/2022 3 HYDROcodone-acetamin ophen (NORCO) 5-325 MG tabletIndications:Ac [place] Pain < 7 Day Supply Take 1 [...] mouth daily. 30 tablet 2 08/08/2022 4 oxyCODONE immediate release (ROXICODONE) 5 MG immediate release tablet Take 1 tablet (5 mg total) by mouth. 01/06/2023 3 RYBELSUS 14 MG Tab 09/28/2022 3 traZODone 50 MG tablet Take 1 tablet (50 mg total) by mouth nightly at bedtime. 05/12/2021 4 documented as of this encounter Plan of Treatment Upcoming Encounters Date Type Department Care Team (Late st Contact Info) Description 04/29/2024 1:45 PM SOURCING MANAGER Office Visit [facility] [address] [facility] 1 [place] [address] Sujatha Solis, BODY STYLIST- [address] [facility] [place] [address] documented as of this encounter Procedures Procedure Name Priority Date/Time Associated Diagnosis Comments XR HIP INJ/ASP LT Routine 01/09/2023 11: 17 AM CDT Primary osteoarthritis of left hip documented in this encounter Results * XR HIP INJ/ASP LT (01/09/2023 11:17 AM CDT) Anatomical Region Laterality Modality Hip Radiographic Chanel ging, Radiographic Imaging 01/09/2023 11:2 8 AM CDT Impressions 01/09/2023 11:30 AM CDT IMPRESSION: Uneventful therapeutic left hip arthrogram as described. Ordered By: ROLDAN RADER Interpreted By: Abimael Shannon MD, 01/09/2023 11:28 AM Narrative 01/09/2023 11:30 AM CDT Examination: ??Therapeutic left hip arthrogram. Exam time: Approximately 1100 hours. The time stamp on the images is incorrect. Clinical history: Arthritis. Pain. Comparison: 09/29/2022. Technique: Fluoroscopic monitoring with spot imaging. 0.5 minutes of fluoroscopy time was utilized. Two digital spot and/or digital radiographs were obtained. Findings: Prior imaging was reviewed. ??Appropriate consent and timeout procedures were accomplished. An approach for puncture of the left hip joint was selected and localized fluoroscopically. Following sterile prep and local anesthesia with 1% Xylocaine, the joint was successfully punctured without incident under fluoroscopic guidance utilizing a 20-gauge spinal needle. Following confirmation of intra-articular needle placement via injection of a small volume of radiographic contrast, a mixture of 4 mL of 1% Xylocaine with epinephrine and 80 mg of Depo- Medrol (5 mL total) was subsequently instilled into the joint without incident. The needle was withdrawn and the puncture site cleaned and dressed with a Band-Aid. There were no immediate complications from the procedure. The patient tolerated the procedure well. ??The patient reported no significant change in her symptoms immediately following the procedure. Procedure Note Abimael Shannon MD - 01/09/2023 Examination: Therapeutic left hip arthrogram. Exam time: Approximately 1100 hours. The time stamp on the images isincorrect. Clinical history: Arthritis. Pain. Comparison: 09/29/2022. Technique: Fluoroscopic monitoring with spot imaging. 0.5 minutes offluoroscopy time was utilized. Two digital spot and/or digital radiographswere obtained. Findings: Prior imaging was reviewed. Appropriate consent and timeoutprocedures were accomplished. An approach for puncture of the left hipjoint was selected and localized fluoroscopically. Following sterile prepand local anesthesia with 1% Xylocaine, the joint was successfullypunctured without incident under fluoroscopic guidance utilizing [id number] spinal needle. Following confirmation of intra- articular needleplacement via injection of a small volume of radiographic contrast, amixture of 4 mL of 1% Xylocaine with epinephrine and 80 mg of Depo-Medrol(5 mL total) was subsequently instilled into the joint without incident.The needle was withdrawn and the puncture site cleaned and dressed with aBand-Aid. There were no immediate complications from the procedure. Thepatient tolerated the procedure well. The patient reported no significantchange in her symptoms immediately following the procedure. IMPRESSION: Uneventful therapeutic left hip arthrogram as described. Ordered By: ROLDAN ARDER Interpreted By: Abimael Shannon MD, 01/09/2023 11:28 AM Roldan Rader MD FLUOROSCOPY Final Result documented in this encounter Visit Diagnoses Diagnosis Primary osteoarthritis of left hip Primary localized osteoarthrosis, pelvic region and thigh documented in this encounter Administered Medications Inactive Administered Medications - up to 3 most recent administrations Medication Order MAR Action Action Date Dose Rate Site iopamidol (ISOVUE-370) 76 % injection 5 mL 5 mL, Intravenous, IMG once as needed, Contrast, 1 dose, Starting on Sun01/09/23 at 1012, Until Sun01/09/23 at 1105 Given 01/09/2023 11:05 AM CDT 5 mLs lidocaine-EPINEPHrine 1 %-1:639343 injection 4 mL 4 mL, Other, Once, 1 dose, On Sun01/09/23 at 1045 Given 01/09/2023 11:05 AM CDT 4 mLs methylPREDNISolone acetate (DEPO-Medrol) injection 80 mg 80 mg, Other, Once, 1 dose, On Sun01/09/23 at 1030, Shake Well Given 01/09/2023 11:05 AM CDT 80 mg documented in this encounter Care Teams Buttermilk Drier Operator Relationship Specialty Start Date End Date Asif Coto DO [address] [place] [address] PCP - General FAMILY PRACTICE 09/29/21 documented as of this encounter
--- OUTSIDE RECORDS SUMMARY | 2024-04-23 21:38 | XMS_ITS | Encounter Summary ---
Author Organization [facility] Address [address] [place] [address]. [place] [address] [place] [address] Care Team Providers Care Survival Specialist Name Role Phone MushtaqAsif hanson Primary Care Provider [phone] Reason for Visit * Reason Comments New Patient Knee Pain LEFT Encounter Details Date Type Department Care Team (Latest Contact Info) Description 08/08/2022 1:45 PM CDT Office Visit [facility] [address], [facility] [address] [place] [address] Roldan Rader MD [address] [place] [id number] New Patient; Knee Pain (LEFT) Social History Tobacco Use Types Packs/Day Years Used Date Smoking Tobacco: Never Smokeless Tobacco: Never Tobacco Cessation:Counseling Given: Not Answered Alcohol Use Standard Drinks/Week Comments Not Currently 0 (1 standard drink = 0.6 oz pur e alcohol) Comments Unknown Sex and Gender Information Value Date Recorded Sex Assigned at Female 08/07/2022 4:17 PM CDT Legal Sex Female 8:54 PM CDT Gender Identity Female 08/07/2022 4:17 PM CDT Sexual Orientation Straight 02/26/2023 1: 40 PM MELT ROOM OPERATOR COVID-19 Exposure Response Date Recorded In [...] - - Weight 78 kg (172 lb) 08/08/2022 1:53 PM CDT Height 165.1 cm (5' 5 ) 08/08/2022 1:53 PM CDT Body Mass Index 28.62 08/08/2022 1:53 PM CDT documented in this encounter Progress Notes * Trinity Griffin RN - 08/08/2022 1:45 PM CDT Donna is a 66-year-old female who presents for New Patient and Knee Pain (LEFT) New patient here in clinic for complaints of LEFT knee pain. States has pain located to medial aspect of LEFT knee without radiation. Denies night pain. Denies numbness ,tingling, bruising or swelling. States it only hurts when she walks, states it started about 4 months ago when was going up and down stairs at home. Reports that she had injection done by PCP and called and confirmed date of 03/21/2022 and states it helped for couple of days. States she has applied ice in past with relief. Reports that she apply's arthritis cream with minimal relief. States in past had wore a knee brace on with poor relief. Denies ever having therapy for LEFT knee pain. Denies taking any pain medication. Reports using crutches for ambulation since having foot surgery 2 weeks ago but prior to that didn't use anything. Patient is retired. No additional nursing task documentation needed. Vitals: 08/08/22 1353 Weight: 78 kg (172 lb) Height: 5' 5 (1.651 m) Current Outpatient Medications Medication Sig amLODIPine 10 [...] mouth 2 (two) times daily as needed. levothyroxine (SYNTHROID) 75 MCG tablet Take 1 tablet (75 mcg total) by mouth every morning. lisinopril 20 MG tablet 5 mg. lisinopril 5 MG tablet metFORMIN ER 500 MG 24 hr tablet [facility] Natural Products (OSTEO BI-FLEX ADV TRIPLE ST) Tab Take 1 tablet by mouth 2 (two) times a day. [place]-3 Fatty Acids (FISH OIL) 500 MG capsule Take 1,000 mg by mouth daily. traZODone 50 MG tablet TRUE METRIX BLOOD GLUCOSE TEST test strip TRUEplus Lancets 33G [facility] vitamin D3 (CHOLECALCIFEROL) 25 mcg tablet Take 1 tablet (25 mcg total) by mouth daily. HYDROcodone-acetaminophen (NORCO) 5-325 MG tablet Take 1 tablet by mouth every 4 (four) hours as needed for Pain. Indications: Acute Pain < 7 Day Supply (Patient not taking: Reported on 08/08/2022) Past Surgical History: Procedure Laterality Date BACK SURGERY Allergies Patient has no known allergies. [x] Total Xrcq-ph-Sjqj Assessment Time: 16-30 minutes Additional Contributory Factors NONE * Roldan Rader MD - 08/08/2022 1:45 PM CDT Chief Complaint: New Patient and Knee Pain (LEFT) History of Present Illness: Donna Saunders is a 66-year-old female who presents to the office for New Patient and Knee Pain (LEFT) New patient here in clinic for complaints of LEFT knee pain wearing Post op shoe to LEFT foot and using crutches. had foot surgery 2 weeks ago and has been using crutches since then. has pain located to medial aspect of LEFT knee without radiation. Denies night pain. Denies numbness ,tingling, bruising or swelling. States it only hurts when she walks, states it started about 4 months ago when was going up and down stairs at home. Reports that she had injection done by PCP and called and confirmed date of 03/21/2022 and states it helped for couple of days. States she has applied ice in past with relief. Reports that she apply's arthritis cream with minimal relief. States in [place] wore a knee brace on with poor relief. Denies ever having therapy for LEFT knee pain. Denies taking any pain medication. Patient is retired. ROS: See HPI for pertinent positives Problem List: There is no problem list on file for this patient. History: Past Medical History: Diagnosis Date Chronic back pain Hypertension Hypothyroidism, unspecified Mixed hyperlipidemia Past Surgical History: Procedure Laterality Date BACK SURGERY x3 FOOT SURGERY Left 07/27/2022 FOOT SURGERY Right 2001 KNEE ARTHROPLASTY Right 04/01/2014 Family History Problem Relation Name Age of Onset Other (heart problems) Mother Cancer Father Thyroid Disease Other Family Status Relation Name Status Mother Father Other (Not Specified) Social History Socioeconomic History Marital status: Tobacco Use Smoking status: Never Smokeless tobacco: Never Vaping Use Vaping Use: Never used Substance and Sexual Activity Alcohol use: Not Currently Drug use: Never Medications: Current Outpatient Medications: amLODIPine 10 MG [...] times daily as needed., Disp: , Rfl: levothyroxine (SYNTHROID) 75 MCG tablet, Take 1 tablet (75 mcg total) by mouth every morning., Disp: , Rfl: lisinopril 20 MG tablet, 5 mg., Disp: , Rfl: lisinopril 5 MG tablet, , Disp: , Rfl: metFORMIN ER 500 MG 24 hr tablet, , Disp: , Rfl: [facility] Natural Products (OSTEO BI-FLEX ADV TRIPLE ST) Tab, Take 1 tablet by mouth 2 (two) times a day., Disp: , Rfl: [place]-3 Fatty Acids (FISH OIL) 500 MG capsule, Take 1,000 mg by mouth daily., Disp: , Rfl: traZODone 50 MG tablet, , Disp: , Rfl: TRUE METRIX BLOOD GLUCOSE TEST test strip, , Disp: , Rfl: TRUEplus Lancets 33G [facility], , Disp: , Rfl: vitamin D3 (CHOLECALCIFEROL) 25 mcg tablet, Take 1 tablet (25 mcg total) by mouth daily., Disp: , Rfl: HYDROcodone-acetaminophen (NORCO) 5-325 MG tablet, Take 1 tablet by mouth every 4 (four) hours as needed for Pain. Indications: Acute Pain < 7 Day Supply (Patient not taking: Reported on 08/08/2022), Disp: 42 tablet, Rfl: 0 Review of patient's allergies indicates: No Known Allergies Objective: Body mass index is 28.62 kg/m??. Last Recorded Weight 08/08/22 1353 Weight: 78 kg (172 lb) Physical exam: Constitutional: Alert and in no acute distress. Neurological: The patient was oriented to person, place, and time. Eyes: The sclera and conjunctiva were normal ENT: Hearing was normal. Neck: The appearance of the neck was normal. Cardiovascular: Normal pulses. Pulmonary: No respiratory distress. Skin: No injuries or skin lesion. Musculoskeletal: Left knee examination demonstrates no effusion. Her range of motion is good with negative Bentley's. Patient has a dressing in place on the left foot from recent surgery. Medial tenderness is present along the joint line as well as pain with pressure over the patella. No hip pain.She is walking on crutches Results: Left knee x-ray was reviewed demonstrating severe arthritis with loss of joint space in the medial compartment and large osteophytes along with moderate patellofemoral degenerative changes Assessment: Encounter Diagnose(s) ICD-10-CM ICD-9-CM SNOMED CT(R) 1. Primary osteoarthritis of left knee M17.12 715.16 OSTEOARTHRITIS OF LEFT KNEE JOINT Plan: Patient has left knee arthritis causing significant functional disability except for recently sinceshe is not putting much weight on the left knee since she is on crutches after foot surgery. Previous knee injection did not provide much relief. She has not been using anti-inflammatory medicationsso I have given her a prescription for meloxicam. She indicates that pain at night is not problematic and she will plan to return when her knee pain worsens Follow up: Return if symptoms worsen or fail to improve. ROLDAN RADER MD documented in this encounter Plan of Treatment Upcoming Encounters Date Type Department Care Team (Late st Contact Info) Description 04/29/2024 1:45 PM MELT ROOM OPERATOR Office Visit [facility] [address] [facility], [facility] [address] [place] [address] Sujatha Solis, DIRECTOR POWER- [address] [facility] [place] [address] documented as of this encounter Visit Diagnoses Diagnosis Primary osteoarthritis of left knee- Primary Primary localized osteoarthrosis, lower leg documented in this encounter Care Teams Survival Specialist Relationship Specialty Start Date End Date Asif Coto DO [address] [place] [address] PCP - General FAMILY PRACTICE 09/29/21 documented as of this encounter
--- OUTSIDE RECORDS SUMMARY | 2024-04-23 21:38 | XMS_ITS | Encounter Summary ---
Author Organization [facility] Address [address] [place] [address]. [place] [address] [place] [address] Care Team Providers Care Prototype Model Maker Name Role Phone MushtaqAsif hanson Primary Care Provider [phone] Encounter Details Date Type Department Care Team (Latest Contact Info) Description 08/08/2022 1:45 PM CDT - 08/08/2022 11:59 PM CDT Hospital Encounter [facility] [address] [place] [address] Roldan Rader MD [address] [place] [address] Discharge Disposition: Home or Self [...] Sexual Orientation Straight 02/26/2023 1: 40 PM STATISTICS INTERN COVID-19 Exposure Response Date Recorded In the last 10 days, have yo u been in contact with someone who was confirmed or suspected to have Coronavirus/COVID-19? No / Unsure 08/08/2022 1:49 PM CDT documented as of this encounter Medications [...] (5 mg total) by mouth daily. 12/29/2020 metFORMIN ER 500 MG 24 hr tablet Take 1 tablet (500 mg total) by mouth nightly at bedtime. 05/13/2021 [facility] Natural Products (OSTEO BI-FLEX ADV TRIPLE ST) Tab Take 1 tablet by mouth 2 (two) times a day. [place]-3 Fatty Acids (FISH OIL) 500 MG capsule Take 1,000 mg by mouth daily. TRUE METRIX BLOOD GLUCOSE TEST test strip 01/10/2021 TRUEplus Lancets 33G [facility] 01/10/2021 vitamin D3 (CHOLECALCIFEROL) 25 mcg [...] mouth daily. 30 tablet 2 08/08/2022 4 traZODone 50 MG tablet Take 1 tablet (50 mg total) by mouth nightly at bedtime. 05/12/2021 4 documented as of this encounter Plan of Treatment Upcoming Encounters Date Type Department Care Team (Late st Contact Info) Description 04/29/2024 1:45 PM STATISTICS INTERN Office Visit [facility] [address] [facility] 1 [place] [address] Sujatha Solis, [facility]- [address] [place] [address] documented as of this encounter Procedures Procedure Name Priority Date/Time Associated Diagnosis Comments XR KNEE STAND AP JENNIE ONLY Routine 08/08/2022 2:49 PM CDT Left knee pain, unspecified chronicity XR KNEE LT 2V Routine 08/08/2022 2:49 PM CDT Left knee pain, unspecified chronicity documented in this encounter Results * XR KNEE LT 2V (08/08/2022 2:49 PM CDT) Anatomical Region Laterality Modality Knee Radiographic Chanel ging 08/08/2022 4:10 PM CDT Impressions 08/08/2022 4:12 PM CDT IMPRESSION: Mild arthritis medial and patellofemoral joint compartments left knee. Previous right knee arthroplasty. Ordered By: ROLDAN Magana LEGAL TRANSCRIPTIONIST Interpreted By: Frank Garcia MD, 08/08/2022 4:10 PM Narrative 08/08/2022 4:12 PM CDT 08/08/2022, 1338 hours. HISTORY: Bilateral knee pain. EXAM: Standing PA views of both knees, standing lateral view of the left knee and patellar sunrise view of the left knee. Correlation to imaging 03/03/2008. FINDINGS: Left knee: Mild arthritic changes with slight narrowing of the medial and patellofemoral joint compartments and tiny dorsal patellar spurring. No evidence of fracture or acute bony abnormality. No gross bone destruction. No calcified intra-articular bodies. No gross joint effusion. Right knee: On the single PA view the right knee, there is a cemented right total knee arthroplasty present without evidence of loosening. No fracture or acute bony abnormality. Procedure Note Frank Garcia MD - 08/08/2022 08/08/2022, 1338 hours. HISTORY: Bilateral knee pain. EXAM: Standing PA views of both knees, standing lateral view of the leftknee and patellar sunrise view of the left knee. Correlation to [id number]/03/2008. FINDINGS: Left knee: Mild arthritic changes with slight narrowing of the medial andpatellofemoral joint compartments and tiny dorsal patellar spurring. Noevidence of fracture or acute bony abnormality. No gross bone destruction.No calcified intra-articular bodies. No gross joint effusion. Right knee: On the single PA view the right knee, there is a cemented right total kneearthroplasty present without evidence of loosening. No fracture or acutebony abnormality. IMPRESSION: Mild arthritis medial and patellofemoral joint compartments left knee.Previous right knee arthroplasty. Ordered By: ROLDAN RADER Interpreted By: Frank Garcia MD, 08/08/2022 4:10 PM Roldan Rader MD GENERAL IMAGING Final Result * XR KNEE STAND AP JENNIE ONLY (08/08/2022 2:49 PM CDT) Anatomical Region Laterality Modality Knee Radiographic Chanel ging 08/08/2022 4:10 PM CDT Impressions 08/08/2022 4:12 PM CDT IMPRESSION: Mild arthritis medial and patellofemoral joint compartments left knee. Previous right knee arthroplasty. Ordered By: ROLDAN RADER Interpreted By: Frank Garcia MD, 08/08/2022 4:10 PM Narrative 08/08/2022 4:12 PM CDT 08/08/2022, 1338 hours. HISTORY: Bilateral knee pain. EXAM: Standing PA views of both knees, standing lateral view of the left knee and patellar sunrise view of the left knee. Correlation to imaging 03/03/2008. FINDINGS: Left knee: Mild arthritic changes with slight narrowing of the medial and patellofemoral joint compartments and tiny dorsal patellar spurring. No evidence of fracture or acute bony abnormality. No gross bone destruction. No calcified intra-articular bodies. No gross joint effusion. Right knee: On the single PA view the right knee, there is a cemented right total knee arthroplasty present without evidence of loosening. No fracture or acute bony abnormality. Procedure Note Frank Garcia MD - 08/08/2022 08/08/2022, 1338 hours. HISTORY: Bilateral knee pain. EXAM: Standing PA views of both knees, standing lateral view of the leftknee and patellar sunrise view of the left knee. Correlation to [id number]/03/2008. FINDINGS: Left knee: Mild arthritic changes with slight narrowing of the medial andpatellofemoral joint compartments and tiny dorsal patellar spurring. Noevidence of fracture or acute bony abnormality. No gross bone destruction.No calcified intra-articular bodies. No gross joint effusion. Right knee: On the single PA view the right knee, there is a cemented right total kneearthroplasty present without evidence of loosening. No fracture or acutebony abnormality. IMPRESSION: Mild arthritis medial and patellofemoral joint compartments left knee.Previous right knee arthroplasty. Ordered By: ROLDAN RADER Interpreted By: Frank Garcia MD, 08/08/2022 4:10 PM Roldan Rader MD GENERAL IMAGING Final Result documented in this encounter Visit Diagnoses Diagnosis Left knee pain, unspecified chronicity documented in this encounter Care Teams Prototype Model Maker Relationship Specialty Start Date End Date Asif Coto DO [address] [place] [address] PCP - General FAMILY PRACTICE 09/29/21 documented as of this encounter
--- OUTSIDE RECORDS SUMMARY | 2024-04-23 21:38 | XMS_ITS | Encounter Summary ---
Author Organization [facility] Address [address] [place] [address]. [place] [address] [place] [address] Care Team Providers Care Real Estate Paralegal Name Role Phone Unavailable Primary Care Provider Unavailabl e Encounter Details Date Type Department Care Team (Late Contact Info) Description 04/23/2014 Abstract [facility] [address] [place] [address] Iván Josue MD [address] [place] [address] [address] [address] [place], [place] [id number] Social History Tobacco Use Types Packs/Day Years Used Date Smoking Tobacco: Never Assessed Comments Unknown Sex and Gender Information Value Date Recorded Sex Assigned at Female 08/07/2022 4:17 PM CDT Legal Sex Female 8:54 PM CDT Gender Identity Female 08/07/2022 4:17 PM CDT Sexual Orientation Straight 02/26/2023 1: 40 PM FINANCIAL COUNSELOR documented as of this encounter Plan of Treatment Upcoming Encounters Date Type Department Care Team (Late Contact Info) Description 04/29/2024 1:45 PM FINANCIAL COUNSELOR Office Visit [facility] [address] [place] [address] [address] [place] [address] Sujatha Solis, RECREATION ATTENDANT-BC [address] [place] [address] documented as of this encounter Visit Diagnoses Diagnosis Encounter for therapeutic drug monitoring documented in this encounter
--- OUTSIDE RECORDS SUMMARY | 2024-04-23 21:38 | XMS_ITS | Encounter Summary ---
Author Organization [facility] Address [address] [place] [address]. [place] [address] [place] [address] Care Team Providers Care Diesel Engineer Name Role Phone MushtaqVivi hansonvarsha GANDARA Primary Care Provider [phone] Reason for Visit * Reason Comments Bunion Encounter Details Date Type Department Care Team (Late st Contact Info) Description 04/27/2022 11:30 AM STEEL ERECTING PUSHER [facility] [address] [address] Jasmyne Fay, DPM [address] [place] [address] Bunion Social History Tobacco Use Types Packs/Day Years [...] Sexual Orientation Straight 02/26/2023 1: 40 PM STEEL ERECTING PUSHER documented as of this encounter Last Filed Vital Signs Vital Sign Reading Time Taken Comments Blood Pressure - - Pulse - - Temperature - - Respiratory Rate - - Oxygen Saturation - - Inhaled Oxygen Concentration - - Weight 59 kg (130 lb) 04/27/2022 12:01 PM STEEL ERECTING PUSHER Height 165.1 cm (5' 5 ) 04/27/2022 12:01 PM STEEL ERECTING PUSHER Body Mass Index 21.63 04/27/2022 12:01 PM STEEL ERECTING PUSHER documented in this encounter Progress Notes * Jasmyne Fay MD - 04/27/2022 11:30 AM CST Reason for Visit: Bunion History of Present Illness: Patient returns for follow-up of bunionectomy and tailor's bunionectomy. She notes that there is a lump on the bottom of her foot that bothers her when she is not wearing shoes, this drives her crazy. First ray feels fine. Review Of Systems: Negative except the HPI. [...] status: Tobacco Use ??? Smoking status: Never ??? Smokeless tobacco: Never Vaping Use ??? Vaping Use: Unknown Substance and Sexual Activity ??? Alcohol use: Not Currently ??? Drug use: Never Family History Problem Relation Name Age of Onset ??? Thyroid Disease Other Family Status Relation Name Status ??? Other (Not Specified) PHYSICAL EXAM The left hallux is in a rectus position with great range of motion of the great toe joint to about 65 degrees total range of motion, no edema and no pain and no crepitus with range of motion. There is some pain plantar into the distal left fifth ray this is proximal to the fifth metatarsal head with a very prominent exostosis, there is pain dorsally and plantarly in this area. No obvious edema. Neurovascular status intact. Radiographs: 3 views of the left foot are reviewed in the [facility] PACS system showing a well-healed first and fifth metatarsal osteotomy. There is plantar prominence of one of the screws as well as either bone callus or exostosis plantar to the fifth metatarsal neck area. Filed Vitals: 04/27/22 1201 Weight: 59 kg (130 lb) Height: 5' [...] None Diagnoses/Impression: Encounter Diagnose(s) ICD-10-CM ICD-9-CM 1. Painful orthopaedic hardware (CMS/[facility]) T84.84XA 996.78 2. Exostosis of left foot M89.8X7 726.91 3. Adult general medical examination Z00.00 V70.9 Recommendations and Plan: We performed a fall risk assessment. The patient is at low risk for falls. The fall risk was documented in the chart and we reviewed fall prevention. Discussed with the patient that due to the position of some of the hardware which has migrated as well as prominence of a spur or exostosis below the fifth metatarsal this is likely to be a chronic issue for her and she is unlikely to be able to ambulate without shoe gear. We did discuss the possibility of hardware removal and an exostectomy and she would like to go ahead with this soon as possible. We discussed the procedure will be done on an outpatient basis under MAC local anesthesia. All questions answered no problems or guarantees made. She would be immediately weightbearing in a surgical shoe. JASMYNE FAY MD Referring Provider: No ref. provider found PCP: KATELYN HOOD DO L ERECTING PUSHER documented in this encounter Plan of Treatment Upcoming Encounters Date Type Department Care Team (Late st Contact Info) Description 04/29/2024 1:45 PM STEEL ERECTING PUSHER Office Visit [address] [address] Sujatha Solis, [address] [place] [address] documented as of this encounter Visit Diagnoses Diagnosis Painful orthopaedic hardware (CMS/HCC)- Primary Exostosis of left foot Adult general medical examination Unspecified general medical examination documented in this encounter Care Teams Diesel Engineer Relationship Specialty Start Date End Date Katelyn Hood DO [address] [place] [address] PCP - General FAMILY PRACTICE 09/29/21 documented as of this encounter
--- OUTSIDE RECORDS SUMMARY | 2024-04-23 21:38 | XMS_ITS | Encounter Summary ---
Author Organization [facility] Address [address] [place] [address]. [place] [address] [place] [address] Care Team Providers Care X Ray Physician Name Role Phone Asif Coto DO Primary Care Provider [phone] Encounter Details Date Type Department Care Team (Latest Contact Info) Description 01/30/2023 Travel Social History Tobacco Use Types Packs/Day [...] Sexual Orientation Straight 02/26/2023 1: 40 PM RETORT FEEDER GROUND BONE documented as of this encounter Plan of Treatment Upcoming Encounters Date Type Department Care Team (Late st Contact Info) Description 04/29/2024 1:45 PM RETORT FEEDER GROUND BONE Office Visit [facility] [place] [address] [facility] 1 [place] [address] Sujatha Solis, NET WEB APPLICATION DEVELOPER- [address] [facility] [place] [address] documented as of this encounter Visit Diagnoses Not on filedocumented in this encounter Care Teams X Ray Physician Relationship Specialty Start Date End Date Asif Coto DO [address] [place] [address] PCP - General FAMILY PRACTICE 09/29/21 documented as of this encounter
--- OUTSIDE RECORDS SUMMARY | 2024-04-23 21:38 | XMS_ITS | Encounter Summary ---
Author Organization [facility] Address [address] [place] [address]. 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 Procedures NONE RIGHT TOTAL HIP ARTHROPLASTY Roldan Rader MD [address] [place] [id number] Phone: tel: fax: Referral ID Status Reason Start Date Expiration Date Visits Re quested Visits Authorized [id number] 1 1 Encounter Details Date Type Department Care Team (Late st Contact Info) Description 02/26/2023 9:47 AM SAFETY AND SECURITY MANAGER Anesthesia Event [place] [address] [facility] [place] [address] Albaro Estrada MD [address] [place] [address], [address] [place] [address] Anesthesia Record Procedure Summary Procedure Name Responsible Anesthesiologist Anesthesia Start Time Anesthesia Stop Time RIGHT TOTAL HIP ARTHROPLASTY (Right: Hip) 02/26/23 0947 02/26/23 1211 Events Date Time Event Comment 02/26/2023 0904 0904 AN PIANO CASE AND BENCH ASSEMBLER Prepped 0904 AN Anesthesia Prepped 0947 An Start Patient ID and consent checked and patient reassessed. 0947 An Start Data 0947 AN Immediate Reassess The pa tient was reevaluated immediately before sedation or regional anesthesia. 0947 Face Mask Applied 0950 AN Immediate Reassess The pa tient was reevaluated immediately before sedation or regional anesthesia. 0956 An Block 1004 Anesthesia Ready 1207 an stop data 1211 Post Anesthetic Care Handoff I completed my handoff to the receiving nurse during which we: 1. Identified the patient 2. Identified the responsible provider 3. Reviewed the pertinent medical history 4. Discussed the surgical course 5. Reviewed intra-op anesthesia management and issues during anesthesia 6. Set expectations for post-procedure period 7. Allowed opportunity for questions and acknowledgement of understanding. 1211 An Stop Meds Name Total propofol (DIPRIVAN) 500 mg/50 mL injecti on 648.89 mg fentaNYL (SUBLIMAZE) 100 mcg/2 mL inject ion 100 mcg midazolam 2 mg/2 mL injection 4 mg ROpivacaine (NAROPIN) 1% injection 40 mL dexamethasone (DECADRON) 4 mg/mL injecti on 8 mg ondansetron (ZOFRAN) 4 mg/2 mL injection 4 mg ketamine 50 mg/mL injection 50 mg morphine (PF) (ASTRAMORPH) 1 mg/1mL inje ction 0.15 mg ceFAZolin (ANCEF) 2 g in sodium chloride 0.9 % 50 mL IVPB 2 g tranexamic acid (CYKLOKAPRON) injection 1,000 mg 1,000 mg phenylephrine (ZENON-SYNEPHRIN E) 50 mg in sodium chloride 0.9 % 250 mL (0.2 mg/mL) infusion 2,240 mcg glycopyrrolate (ROBINUL) injection 0.3 m g lactated ringers infusion 1,600 mL * Agents Name O2 Ancillary O2 * Blood No blood administrations on file. Lines, Drains, and Airways Type Details Placement Removal Peripheral IV Placement Date: 02/26/23; Placement Time: 09; Placed Outside of This Facility?: No; Size: 22 G; Orientation: Right; Location: Hand; Site Prep: Chlorhexidine; Inserted By: DENG Correa; Insertion attempts: 2 (Una Churchill x1, UNA Mcgregor x1, DENG Hungx2); Ultrasound-guided Placement?: No; Patient Tolerance: Tolerated well; Removal Date: 02/27/23; Removal Time: 16302/26/23 09 by Marsha Fernandez RN 02/27/23 1639 by Automatic Discharge Provider Johnson Catheter 02/26/23; 1005; No; I & O - Strict I&O or Critically ill requiring I&O Q1-2hrs; 2; Hand hygiene performed, Site cleansed with sterile antiseptic, Sterile gloves, drape and lubricant used, Catheter inserted using aseptic technique, Drainage bag secured below level of bladder, Closed system maintained; Double-lumen; 14 Fr. (unable to insert #18) 02/26/23 1005 by Lyric Murphy RN 02/27/23 0600 by Casie Mcduffie RN Surgical/Incision 02/26/23; 1151; Surgical Wound; Hip; Right; Steri Strips, Aquacel 10; 02/27/23; 1639 02/26/23 1151 by Lyric Murphy RN 02/27/23 1639 by Automatic Discharge Provider documented in this encounter Social History Tobacco Use Types Packs/Day Years Used Date Smoking Tobacco: Former Cigarettes Smokeless Tobacco: Never Alcohol Use Standard Drinks/Week Comments Not Currently 0 (1 standard drink = 0.6 oz pur e alcohol) [facility] [employer] Answer Date Recorded In the past 12 months has [employer], gas, oil, or water [employer] threatened to shut off services in your [...] How often do you attend christianity or yazidism serv ices? Patient declined 02/26/2023 [...] Score 0 02/26/2023 [facility] Occupational Stress Questionnaire Answer Date Recorded [...] Sexual Orientation Straight 02/26/2023 1: 40 PM SAFETY AND SECURITY MANAGER documented as of this encounter Functional Status documented as of this encounter Mental Status * Question Answer Entry Date Author Status Because of a physical, mental, or emotional condition, do you have serious difficulty concentrating, remembering, or making decisions? No 02/26/2023 1:46 PM SAFETY AND SECURITY MANAGER Casie Mcduffie RN Active * Because of a physical, mental, or emotional condition, do you have serious difficulty concentrating, remembering, or making decisions? Answer Entry Date Author Status No 02/26/2023 1:46 PM SAFETY AND SECURITY MANAGER Casie Mcduffie RN Active documented in this encounter OR Notes * Anesthesia Postprocedure Evaluation - Madeline Long CRNA - 02/27/2023 8:29 AM CST Anesthesia Post-op Note Donna A Chip Procedure(s): RIGHT TOTAL HIP ARTHROPLASTY (Right: Hip) Anesthesia type: spinal Vitals: 02/27/23429 BP: 102/44 Vitals: 02/27/23429 Pulse: 73 Vitals: 02/27/23429 Resp: 16 Vitals: 02/27/23429 Temp: 36.3 ??C Vitals: 02/27/23429 SpO2: 93% Patient Location: Inpatient Unit Level of Consciousness: awake, alert and oriented Pain Management: adequate analgesia Airway Patency: patent Respiratory Status: spontaneous ventilation and acceptable Cardiovascular Status: acceptable, stable and hemodynamically stable Post-Op Nausea: none Postoperative Hydration: euvolemic No notable events documented. TY AND SECURITY MANAGER * Anesthesia Postprocedure Evaluation - Madeline Long CRNA - 02/26/2023 12:50 PM CST Anesthesia Post-op Note Donna A Chip Procedure(s): RIGHT TOTAL HIP ARTHROPLASTY (Right: Hip) Anesthesia type: spinal Vitals: 02/26/23 1245 BP: 113/71 Vitals: 02/26/23 1245 Pulse: 73 Vitals: 02/26/23 1245 Resp: 16 Vitals: 02/26/23 1245 Temp: 35.4 ??C Vitals: 02/26/23 1245 SpO2: 96% Patient Location: PACU Level of Consciousness: awake, alert and oriented Pain Management: adequate analgesia Airway Patency: patent Respiratory Status: spontaneous ventilation and acceptable Cardiovascular Status: acceptable, stable and hemodynamically stable Post-Op Nausea: none Postoperative Hydration: euvolemic No notable events documented. TY AND SECURITY MANAGER * Anesthesia Procedure Notes - Madeline Long CRNA - 02/26/2023 9:58 AM SAFETY AND SECURITY MANAGER Associated Order(s): Spinal Block Spinal Block Patient location during procedure: OR Start time: 02/26/2023 9:53 AM End time: 02/26/2023 9:56 AM Reason for block: primary anesthetic Staffing Performed: PIANO CASE AND BENCH ASSEMBLER Resident/PIANO CASE AND BENCH ASSEMBLER: Madeline Long CRNA Performed by: Madeline Long [...] gauge: 25 G Needle length: 3.5 in Needle insertion depth: 3 cm Catheter type: end hole Assessment Sensory level: T4 Number of attempts: 1 Procedure assessment: patient tolerated procedure well with no immediate complications Additional Notes L3/4 SAB placed: sitting position. prep, drape. 3ml 1% lido local. Positive CSF with #25g pencan needle. Injected meds as noted. Patient tolerated procedure well TY AND SECURITY MANAGER TY AND SECURITY MANAGER * Anesthesia Procedure Notes - Madeline Long CRNA - 02/26/2023 9:33 AM SAFETY AND SECURITY MANAGER Associated Order(s): Peripheral Block Peripheral Block Performed by: Madeline Long CRNA Authorized by: Madeline Long CRNA Procedure Start: 02/26/2023 9:26 AM Procedure Stop: 02/26/2023 9:29 AM Patient Location: Pre-op Reason for Block: at surgeon's request and post-op pain management patient identified, IV checked, site marked, risks and benefits discussed, consent, monitors and equipment checked, pre-op evaluation and timeout performed Patient Position: Supine Monitoring: Blood pressure, continuous pulse ox, ECG/EKG and heart rate Prep: ChloraPrep Draping: Sterile technique maintained Block Type: Fascia Iliaca Laterality: Right Injection Technique: Single-shot Technique: ultrasound guided Needle Gauge: 22 G Needle length: 3 in. Needle Localization: Anatomical landmarks and ultrasound guidance [...] muscle and internal oblique at bow tie juncture.24g Needle placed under ultrasound guidance to dissect IOM from iliacus. Injected local as indicated with multiple negative aspirations. Patient tolerated procedure well. TY AND SECURITY MANAGER * Anesthesia Preprocedure Evaluation - Madeline Long CRNA - 02/15/2023 8:51 AM CDT Anesthesia ROS/MED History Reviewed: Patient summary , Nursing notes , ECG, Family history anesthesia, Anesthesia history , Medications , Labs Pre-Anesthetic State: alert, awake and responds appropriately Pulmonary neg pulmonary ROS Cardiovascular neg cardio ROS Exercise tolerance:good (+) hypertension, (well controlled), hyperlipidemia Neuro/Psych neg neuro/psych ROS Substance Use no history of substance abuse (+) alcohol use, weekly GI/Hepatic/Renal neg GI/hepatic/renal ROS (+) GERD Comments: Denies any GERD today Endo/Other neg endo/other ROS (+) diabetes mellitus, (well controlled), (type 2), (Using Oral hypoglycemic), hypothyroidism Comments: Glucose 85 this am GENERAL COMMENTS BMI 28.3 HTN Hypothyroid Lipids Back Pain NIDDM? Amlodipine Losartan Lisinopril Metformin Synthyroid Atorvastatin Most Recent SODIUM S/P/B: 140 02/13/23 15:46 POTASSIUM S/P/B: 4.1 02/13/23 15:46 CHLORIDE S/P/B: 102 02/13/23 15:46 CO2: 28.1 02/13/23 15:46 BUN: 15 02/13/23 15:46 CREATININE S/P/B: 0.88 02/13/23 15:46 GFR ESTIMATE: 72 (L) 02/13/23 15:46 GLUCOSE: 92 02/13/23 15:46 HGB: 15.0 02/13/23 15:46 HCT: 46.0 02/13/23 15:46 SINUS RHYTHM NPO Status: Physical Evaluation Airway Mallampati: III TM Distance: >3 FB Neck ROM: normal Dental No notable dental history Pulmonary Pulmonary exam normal Breath sounds clear to auscultation Cardiovascular Rhythm: regular Rate: normal Cardiovascular exam normal STOP-Bang Assessment: Anesthesia Plan ASA 3 Intravenous Induction Anesthesia type: spinal Plan for Airway: nasal cannula/simple face mask Plan for Post-op Pain Plan: block, IV analgesics, oral pain medication and as per surgeon Informed Consent Anesthetic plan and risks discussed with patient of whom consent was obtained. Use of blood products discussed with patient of whom consent was obtained. . TY AND SECURITY MANAGER documented in this encounter Plan of Treatment Upcoming Encounters Date Type Department Care Team (Late st Contact Info) Description 04/29/2024 1:45 PM SAFETY AND SECURITY MANAGER Office Visit [address] [place] [address] Sujatha Solis, [facility]- [address] [place] [address] [place] [address] documented as of this encounter Procedures Procedure Name Priority Date/Time Associated Diagnosis Comments AN SPINAL Routine 02/26/2023 9:53 AM SAFETY AND SECURITY MANAGER UT AN PERIPHERAL BLOCK SINGLE-SHOT Routine 02/26/2023 9:33 AM SAFETY AND SECURITY MANAGER documented in this encounter Results * Spinal Block (02/26/2023 9:53 AM SAFETY AND SECURITY MANAGER) Narrative Madeline Long CRNA - 02/26/2023 9:53 AM SAFETY AND SECURITY MANAGER Madeline Long CRNA ? 02/26/2023 10:04 AM Spinal Block Patient location during procedure: OR Start time: 02/26/2023 9:53 AM End time: 02/26/2023 9:56 AM Reason for block: primary anesthetic Staffing Performed: PIANO CASE AND BENCH ASSEMBLER Resident/PIANO CASE AND BENCH ASSEMBLER: Madeline Long CRNA Performed by: Madeline Long [...] gauge: 25 G Needle length: 3.5 in Needle insertion depth: 3 cm Catheter type: end hole Assessment Sensory level: T4 Number of attempts: 1 Procedure assessment: patient tolerated procedure well with no immediate complications Additional Notes L3/4 SAB placed: sitting position. prep, drape. 3ml 1% lido local. Positive CSF with #25g pencan needle. Injected meds as noted. Patient tolerated procedure well us Madeline Long CRNA UT ANESTHESIA Edited Resul t - Final * UT AN PERIPHERAL BLOCK SINGLE-SHOT (02/26/2023 9:33 AM SAFETY AND SECURITY MANAGER) Madeline Rain CRNA - 02/26/2023 9:33 AM SAFETY AND SECURITY MANAGER Madeline Long CRNA ? 02/26/2023 ??9:34 AM Peripheral Block Performed by: Madeline Long CRNA Authorized by: Madeline Long CRNA ?? Procedure Start: ??02/26/2023 9:26 AM Procedure Stop: ??02/26/2023 9:29 AM Patient Location: ??Pre-op Reason for Block: at surgeon's request and post-op pain management ?? patient identified, IV checked, site marked, risks and benefits discussed, consent, monitors and equipment checked, pre-op evaluation and timeout performed ?? Patient Position: ??Supine Monitoring: ??Blood pressure, continuous pulse ox, ECG/EKG and heart rate Prep: ChloraPrep ?? Draping: ??Sterile technique maintained Block Type: ??Fascia Iliaca Laterality: ??Right Injection Technique: ??Single-shot Technique: ultrasound guided ?? Needle Gauge: ??22 G Needle length: 3 in. Needle Localization: ??Anatomical landmarks and ultrasound guidance [...] muscle and internal oblique at bow tie juncture.24g ??Needle placed under ultrasound guidance to dissect IOM from iliacus. Injected local as indicated with multiple negative aspirations. Patient tolerated procedure well. Madeline S Mercedes PIANO CASE AND BENCH ASSEMBLER UT ANESTHESIA Final Result documented in this encounter Visit Diagnoses Not on filedocumented in this encounter Administered Medications Inactive Administered Medications - up to 3 most recent administrations Medication Order MAR Action Action Date Dose Rate Site ceFAZolin (ANCEF) 2 g in sodium chloride 0.9 % 50 mL IVPB 2 g, Intravenous, at 100 mL/hr, call out operator, 1 dose, On Sun02/26/23 at 0830, Give 2 gram dose for patients less than 120 kg. Give within 60 minutes of surgical incision., Pre-Op New Bag 02/26/2023 9:47 AM SAFETY AND SECURITY MANAGER 2 g dexamethasone (DECADRON) injection Intravenous, PRN, Starting on Sun02/26/23 at 1004, Until Sun02/26/23 at 1211, Anesthesia Intra-Op Given 02/26/2023 10:04 AM SAFETY AND SECURITY MANAGER 8 mg fentaNYL (SUBLIMAZE) injection Intravenous, PRN, Starting on Sun02/26/23 at 0926, Until Sun02/26/23 at 1211, Anesthesia Intra-Op Given 02/26/2023 9:26 AM SAFETY AND SECURITY MANAGER 100 mcg glycopyrrolate (ROBINUL) injection SOLN Intravenous, PRN, Starting on Sun02/26/23 at 1044, Until Sun02/26/23 at 1211, Anesthesia Intra-Op Given 02/26/2023 10:44 AM SAFETY AND SECURITY MANAGER 0.3 mg ketamine (KETALAR) injection Intravenous, PRN, Starting on Sun02/26/23 at 0954, Until Sun02/26/23 at 1211, Anesthesia Intra-Op Given 02/26/2023 9:54 AM SAFETY AND SECURITY MANAGER 50 mg lactated ringers infusion at 10 mL/hr, Intravenous, Continuous, Starting on Sun02/26/23 at 0830, Until Sun02/27/23 at 0752, Infuse at TKO rate, Pre-Op New Bag 02/26/2023 11:12 AM SAFETY AND SECURITY MANAGER Restarted 02/26/2023 10:28 AM SAFETY AND SECURITY MANAGER Continued by Anesthesia 02/26/2023 9:47 AM SAFETY AND SECURITY MANAGER 10 mL/hr midazolam (VERSED) injection Intravenous, PRN, Starting on Sun02/26/23 at 0926, Until Sun02/26/23 at 1211, Anesthesia Intra-Op Given 02/26/2023 10:07 AM SAFETY AND SECURITY MANAGER 2 mg Given 02/26/2023 9:26 AM SAFETY AND SECURITY MANAGER 2 mg morphine (PF) (ASTRAMORPH) injection Intravenous, PRN, Starting on Sun02/26/23 at 0956, Until Sun02/26/23 at 1211, Anesthesia Intra-Op Given 02/26/2023 9:56 AM SAFETY AND SECURITY MANAGER 0.15 mg ondansetron (ZOFRAN) injection Intravenous, PRN, Starting on Sun02/26/23 at 0950, Until Sun02/26/23 at 1211, Anesthesia Intra-Op Given 02/26/2023 9:50 AM SAFETY AND SECURITY MANAGER 4 mg phenylephrine (ZENON-SYNEPHRINE) 50 mg in sodium chloride 0.9 % 250 mL (0.2 mg/mL) infusion Intravenous, Continuous PRN, Starting on Sun02/26/23 at 1017, Until Sun02/26/23 at 1211, Anesthesia Intra-Op Rate/Dose Change 02/26/2023 10:50 AM SAFETY AND SECURITY MANAGER 30 mcg/min 9 mL/hr Rate/Dose Change 02/26/2023 10:18 AM SAFETY AND SECURITY MANAGER 20 mcg/min 6 mL/h r New Bag 02/26/2023 10:17 AM SAFETY AND SECURITY MANAGER 10 mcg/min 3 mL/hr propofol (DIPRIVAN) IV bolus Intravenous, Continuous PRN, Starting on Sun02/26/23 at 0954, Until Sun02/26/23 at 1211, Anesthesia Intra-Op Rate/Dose Change 02/26/2023 11:48 AM SAFETY AND SECURITY MANAGER 75 mcg/kg/min 33.66 mL/hr Rate/Dose Change 02/26/2023 11:23 AM SAFETY AND SECURITY MANAGER 50 mcg/kg/min 22. 44 mL/hr Rate/Dose Change 02/26/2023 10:06 AM SAFETY AND SECURITY MANAGER 75 mcg/kg/min 33. 66 mL/hr ROpivacaine 1 % (NAROPIN) injection Regional, PRN, Starting on Sun02/26/23 at 0926, Until Sun02/26/23 at 1211, Anesthesia Intra-Op Given 02/26/2023 9:29 AM SAFETY AND SECURITY MANAGER 10 mLs Given 02/26/2023 9:28 AM SAFETY AND SECURITY MANAGER 10 mLs Given 02/26/2023 9:27 AM SAFETY AND SECURITY MANAGER 10 mLs tranexamic acid (CYKLOKAPRON) injection 1,000 mg 1,000 mg, Intravenous, Once, 1 dose, On Sun02/26/23 at 0830, PHARMACIST TO ADJUST dose based on SCr (SCr less than 1.6 = 1,000 mg; SCr 1.6-3.3 = 750 mg; SCr 3.4-6.6 = 500 mg; SCr greater than 6.6 = 250 mg). Administer dose over 15 minutes prior to incision., Pre-Op Given 02/26/2023 10:07 AM SAFETY AND SECURITY MANAGER 1,000 mg documented in this encounter Care Teams Management Professor Relationship Specialty Start Date End Date Asif Coto DO [address] [place] [address] PCP - General FAMILY PRACTICE 09/29/21 documented as of this encounter
--- OUTSIDE RECORDS SUMMARY | 2024-04-23 21:38 | XMS_ITS | Encounter Summary ---
Author Organization [facility] Address [address] [place] [address]. [place] [address] [place] [address] Care Team Providers Care Vegetable Loader Machine Operator Name Role Phone Asif Coto Primary Care Provider [phone] Encounter Details Date Type Department Care Team (Late Contact Info) Description 07/31/2022 Orders Only [address] [address] Roldan Rader MD [address] [place] [address] Social History Tobacco Use Types Packs/Day [...] Sexual Orientation Straight 02/26/2023 1: 40 PM MEDICAL DEVICE SALES documented as of this encounter Plan of Treatment Upcoming Encounters Date Type Department Care Team (Late Contact Info) Description 04/29/2024 1:45 PM MEDICAL DEVICE SALES Office Visit [address] [address] Sujatha Solis, [employer] [address] [place] [address] documented as of this encounter [...] view of the left knee. Correlation to [id number]. FINDINGS: Left knee: Mild arthritic changes with [...] By: Frank Garcia MD, 08/08/2022 4:10 PM us Rodlan Rader MD GENERAL IMAGING Final Result * [...] view of the left knee. Correlation to [id number]/03/[id number]. FINDINGS: Left knee: Mild arthritic changes with [...] By: Frank Garcia MD, 08/08/2022 4:10 PM us Roldan Rader MD GENERAL IMAGING Final Result documented in this encounter Visit Diagnoses Diagnosis Left knee pain, unspecified chronicity- Primary Left knee pain, unspecified chronicity documented in this encounter Care Teams Vegetable Loader Machine Operator Relationship Specialty Start Date End Date Asif Coto DO [address] [place] [address] PCP - General FAMILY PRACTICE 09/29/21 documented as of this encounter
--- OUTSIDE RECORDS SUMMARY | 2024-04-23 21:38 | XMS_ITS | Encounter Summary ---
Author Organization [facility] Address [address] [place] [address]. [place] [address] [place] [address] Care Team Providers Care Floral Arranger Name Role Phone John Strange DDJaleesa Primary Care Provider [phone] Reason for Visit * Reason Comments Bunion Ingrown Toenail Encounter Details Date Type Department Care Team (Late st Contact Info) Description 07/01/2021 11:00 AM CDT [facility] [address] [address] Jasmyne Fay, DPM [address] [place] [address] Bunion ; Ingrown Toenail Social History Tobacco Use Types [...] Sexual Orientation Straight 02/26/2023 1: 40 PM DRY MIXER documented as of this encounter Last Filed Vital Signs Vital Sign Reading Time Taken Comments Blood Pressure - - Pulse - - Temperature - - Respiratory Rate - - Oxygen Saturation - - Inhaled Oxygen Concentration - - Weight 59 kg (130 lb) 07/01/2021 11:29 AM CDT Height 165.1 cm (5' 5 ) 07/01/2021 11:29 AM CDT Body Mass Index 21.63 07/01/2021 11:29 AM CDT documented in this encounter Progress Notes * Jasmyne Fay MD - 07/01/2021 11:00 AM CDT Reason for Visit: Bunion and Ingrown Toenail History of Present Illness: Patient presents for evaluation of multiple issues with her left foot. The first is a bunion and lateral deviation of her great toe that is causing rubbing in between her toes. She has not really tried anything, this is worse in shoe gear, this is bothered her for a couple of months. Also notes progressive thickening of her left great toenail that grows vertically and does not relate her longitudinally, she does not recall any trauma. This bothers her occasionally, worse in tightshoe gear. Also has a discolored lesion on the tip of the left third toe, she has tried draining this and it will bleed, has not been difficult to stop the bleeding, this has been present for years and years, this has gotten slightly bigger. Review Of Systems: Negative except the HPI. [...] Social History Socioeconomic History ??? Marital status: Not on file Spouse name: Not on file ??? Number [...] Relation Name Status ??? Other (Not Specified) Physical Exam Vitals reviewed. Constitutional: General: She is in acute distress. Appearance: She is not ill-appearing or toxic-appearing. Neurological: Mental Status: She is alert. Vascular: Diminished pedal pulses bilaterally. Diminished pedal hair growth noted. Dermatological: Slight erythema over a knuckle pad to the medial aspect of the left second toe as the great toe does abut. No ulceration is noted. Slight erythema that is very dull over the medial first metatarsal head and the lateral fifth metatarsal head also on the left foot. Left hallux nail isincredibly thick and dystrophic probably a centimeter thick severely incurvated medially and laterally and tender to palpation with no surrounding erythema nor edema. Previous well healed cicatrix tothe right first ray. Musculoskeletal: Left great toe is laterally deviated abutting the second toe with medial deviationthe first metatarsal head creating a prominent bunion deformity. There is instability and crepitus with range of motion of the first metatarsocuneiform joint. Right great toe is in a fairly rectus tothe position with good range of motion of the great toe joint bilaterally. Prominent tailor's bunion deformity at the left fifth metatarsal head that is minimally tender to palpation. Neurological: Light touch sensation intact per [place] Jason 5.07 mm monofilament wire bilaterally 10/10. Achilles tendon reflex 2 out of 4 bilaterally. Normal vibratory sensation at the first MPJbilaterally. 5/5 muscle strength to all muscle groups crossing the ankle bilaterally. Alert & oriented x 3, CN 2-12 normal, normal motor function, normal sensory function, no focal deficits noted. Negative Tinel sign at the tarsal tunnel bilaterally. Radiographs: Pending Filed Vitals: 07/01/21 1129 Weight: 59 kg (130 lb) Height: 5' [...] bunion of left foot M21.622 727.1 3. Dystrophic nail L60.3 703.8 4. Ingrowing nail L60.0 703.0 5. Adult general medical examination Z00.00 V70.9 Recommendations and Plan: We performed a fall risk assessment. The patient is at low risk for falls. The fall risk was documented in the chart and we reviewed fall prevention. We discussed treatment options for the very thickened dystrophic likely permanently damaged left great toenail that is also incurvated. We did offer and recommend total nail avulsion with matricectomy. She would like this to be removed at her next appointment, we will perform a flow check before hand. We discussed management of her hallux valgus and bunion deformity. I think irritation in between her toes is what is giving him the most issue, so I did recommend a silicone toe spacer. We will get x-rays to evaluate the severity of deformity, there does appear to be instability of the first metatarsocuneiform joint but I like to see what everything looks like radiographically before deciding on surgery, certainly recommend wide shoe gear and all conservative measures before proceeding with operation. Patient will follow-up in 2 weeks to review her x-rays. JASMYNE FAY MD Referring Provider: No ref. provider found PCP: No primary care provider on file. documented in this encounter Plan of Treatment Upcoming Encounters Date Type Department Care Team (Late st Contact Info) Description 04/29/2024 1:45 PM DRY MIXER Office Visit [address] [address] Sujatha Solis, CARBURIZER- [address] [place] [address] documented as of this encounter Visit Diagnoses Diagnosis Hallux valgus with bunions of left foot- Primary Tailor's bunion of left foot Dystrophic nail Other specified disease of nail Ingrowing nail Adult general medical examination Unspecified general medical examination documented in this encounter Care Teams Floral Arranger Relationship Specialty Start Date End Date John Strange DDS [address] [place] [address] PCP - General PREVENTIVE MEDICINE 07/25/18 09/28/21 documented as of this encounter
--- OUTSIDE RECORDS SUMMARY | 2024-04-23 21:38 | XMS_ITS | Encounter Summary ---
Author Organization [facility] Address [address] [place] [address]. [place] [address] [place] [address] Care Team Providers Care Unit Leader Name Role Phone MushtaqAsif hanson Primary Care Provider [phone] Reason for Visit * Reason Comments Hip Pain LEFT Encounter Details Date Type Department Care Team (Late st Contact Info) Description 10/27/2022 10:30 AM CDT Office Visit [facility] [address], [facility] [address] [place] [address] Roldan Rader MD [address] [place] [id number] Hip Pain (LEFT) Social History Tobacco Use [...] Sexual Orientation Straight 02/26/2023 1: 40 PM BRICK VENEER MAKER COVID-19 Exposure Response Date Recorded In the last 10 days, have yo u been in contact with someone who was confirmed or suspected to have Coronavirus/COVID-19? No / Unsure 09/29/2022 8:45 AM CDT documented as of this encounter Last Filed Vital Signs Vital Sign Reading Time Taken Comments Blood Pressure - - Pulse - - Temperature - - Respiratory Rate - - Oxygen Saturation - - Inhaled Oxygen Concentration - - Weight 77.1 kg (170 lb) 10/27/2022 10:50 AM CDT Height 165.1 cm (5' 5 ) 10/27/2022 10:50 AM CDT Body Mass Index 28.29 10/27/2022 10:50 AM CDT documented in this encounter Progress Notes * KATIE Rees - 10/27/2022 10:30 AM CDTAddended by: LEELA LAN on: 10/27/2022 01:10 PM Modules accepted: Orders * Valorie [place] RN - 10/27/2022 10:30 AM CDTAddended by: VALORIE GRIFFIN on: 11/14/2022 10:48 AM Modules accepted: Orders * Deidre Alfaro LPN - 10/27/2022 10:30 AM CDT Donna is a 66-year-old female who presents for Hip Pain (LEFT) Patient in clinic today for LEFT hip pain. Patient had an injection 09/22/22 in LEFT hip, reports good relief. Patient reports RIGHT side hip pain interrupts her sleep. Patient is not currently taking any pain medication. Patient reports she has a Dilaudid pump on LEFT side of abdomen. Patient is ambulating with a cane today. Patient is retired. No additional nursing task documentation needed. [x] Scheduled diagnostic exams related to this visit (i.e. CT, MRI) Vitals: 10/27/22 1050 Weight: 77.1 kg (170 lb) Height: 5' 5 (1.651 m) Current [...] mouth 2 (two) times daily as needed. HYDROcodone-acetaminophen (NORCO) 5-325 MG tablet Take 1 tablet by mouth every 4 (four) hours as needed for Pain. Indications: Acute Pain < 7 Day Supply levothyroxine (SYNTHROID) 75 MCG tablet Take 1 tablet (75 mcg total) by mouth every morning. lisinopril 20 MG tablet 5 mg. lisinopril 5 MG tablet losartan (COZAAR) 50 MG tablet meloxicam (MOBIC) 15 MG tablet Take 0.5 tablets (7.5 mg total) by mouth daily. metFORMIN ER 500 MG 24 hr tablet Misc Natural Products (OSTEO BI-FLEX ADV TRIPLE ST) Tab Take 1 tablet by mouth 2 (two) times a day. Garwin-3 Fatty Acids (FISH OIL) 500 MG capsule Take 1,000 mg by mouth daily. RYBELSUS 14 MG Tab traZODone 50 MG tablet TRUE METRIX BLOOD GLUCOSE TEST test strip TRUEplus Lancets 33G Misc vitamin D3 (CHOLECALCIFEROL) 25 mcg tablet Take 1 tablet (25 mcg total) by mouth daily. Past Surgical History: Procedure Laterality Date BACK SURGERY x3 FOOT SURGERY Left 07/27/2022 FOOT SURGERY Right 2002 KNEE ARTHROPLASTY Right 04/01/2014 Allergies Patient has no known allergies. [x] Total Vnst-bu-Vaun Assessment Time: 0-15 minutes Additional Contributory Factors NONE * Roldan Rader MD - 10/27/2022 10:30 AM CDT Chief Complaint: Hip Pain (LEFT) History of Present Illness: Donna Saunders is a 66-year-old female who presents to the office for Hip Pain (LEFT) Patient in clinic today for LEFT hip pain. Patient had an injection 09/22/22 in LEFT hip, reports good relief. Patient reports RIGHT side hip pain interrupts her sleep. Patient is not currently taking any pain medication. Patient reports she has a Dilaudid pump on LEFT side of abdomen. Patient is ambulating with a cane today. Patient is retired. ROS: See HPI for [...] Acute Pain < 7 Day Supply, Disp: 42 tablet, Rfl: 0 HYDROMORPHONE HCL IJ, Via internal pump, Disp: , Rfl: levothyroxine (SYNTHROID) 75 MCG tablet, Take 1 tablet (75 mcg total) by mouth every morning., Disp: , Rfl: lisinopril 20 MG tablet, 5 mg., Disp: , Rfl: lisinopril 5 MG tablet, , Disp: , Rfl: losartan (COZAAR) 50 MG [...] (two) times a day., Disp: , Rfl: Garwin-3 Fatty Acids (FISH OIL) 500 MG capsule, Take 1,000 mg by mouth daily., Disp: , Rfl: RYBELSUS 14 MG Tab, , Disp: , Rfl: traZODone 50 MG tablet, , Disp: , Rfl: TRUE METRIX BLOOD GLUCOSE TEST test strip, , Disp: , Rfl: TRUEplus Lancets 33G [facility], , Disp: , Rfl: vitamin D3 (CHOLECALCIFEROL) 25 mcg tablet, Take 1 tablet (25 mcg total) by mouth daily., Disp: , Rfl: Review of patient's allergies indicates: No Known Allergies Objective: Body mass index is 28.29 kg/m??. Last Recorded Weight 10/27/22 1050 Weight: 77.1 kg (170 lb) Physical exam: Constitutional: Alert and in no acute distress. Neurological: The patient was oriented to person, place, and time. Eyes: The sclera and conjunctiva were normal ENT: Hearing was normal. Neck: The appearance of the neck was normal. Cardiovascular: Normal pulses. Pulmonary: No respiratory distress. Skin: No injuries or skin lesion. Musculoskeletal: Patient has lateral discomfort with motion at both hips and palpation also demonstrates tenderness. Her hip range of motion is mildly restricted more on the right than the left. She does have some groin pain on the right with motion. She is using a cane with ambulation and has an antalgic gait pattern. She is noted to have pelvic tilt and has a constant Chorea type of motion above her waist Results: Assessment: Encounter Diagnose(s) ICD-10-CM ICD-9-CM SNOMED CT(R) 1. 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 She indicates excellent improvement in her left hip after intra-articular injection. She wants to have her right hip injected I have discussed the fact that this most likely will be short-term but there is nothing wrong with trying to get some relief in the right hip that can potentially delay hip replacement surgery for her. She will return as needed Follow up: Return if symptoms worsen or fail to improve. ROLDAN RADER MD documented in this encounter Plan of Treatment Upcoming Encounters Date Type Department Care Team (Late st Contact Info) Description 04/29/2024 1:45 PM BRICK VENEER MAKER Office Visit [facility] [address] [facility] 1 [place] [address] Sujatha Solis, [facility]- [address] [place] [place] [address] documented as of this encounter Results * XR HIP INJ/ASP RT (11/14/2022 11:38 AM CDT) Anatomical Region Laterality Modality Hip Radiographic Chanel ging, Radiographic Imaging 11/14/2022 12:3 9 PM CDT Impressions 11/14/2022 12:42 PM CDT IMPRESSION: Uneventful therapeutic right hip arthrogram as described. Ordered By: ROLDAN RADER Interpreted By: Abimael Shannon MD, 11/14/2022 12:39 PM Narrative 11/14/2022 12:42 PM CDT Examination: ??Therapeutic right hip arthrogram. Exam time: Approximately 1130 hours. The time stamp on the images is incorrect. Clinical history: Arthritis. Pain. Therapeutic trial. Comparison: AP pelvis, 09/22/2022. Technique: Fluoroscopic monitoring with spot imaging. 0.3 minutes of fluoroscopy time was utilized. Two digital spot and/or digital radiographs were obtained. Findings: Prior imaging was reviewed. ??Appropriate consent and timeout procedures were accomplished. An approach for puncture of the right hip joint was selected and localized fluoroscopically. [...] tolerated the procedure well. ??The patient reported improvement in her symptoms immediately following the procedure. Procedure Note Abimael Shannon MD - 11/14/2022 Examination: Therapeutic right hip arthrogram. Exam time: Approximately 1130 hours. The time stamp on the images isincorrect. Clinical history: Arthritis. Pain. Therapeutic trial. Comparison: AP pelvis, 09/22/2022. Technique: Fluoroscopic monitoring with spot imaging. 0.3 minutes offluoroscopy time was utilized. Two digital spot and/or digital radiographswere obtained. Findings: Prior imaging was reviewed. Appropriate consent and timeoutprocedures were accomplished. An approach for puncture of the right hipjoint was selected and localized fluoroscopically. Following sterile prepand local anesthesia with 1% Xylocaine, the joint was successfullypunctured without incident under fluoroscopic guidance utilizing [id number] spinal needle. Following confirmation of intra- articular [...] tolerated the procedure well. The patient reported improvement inher symptoms immediately following the procedure. IMPRESSION: Uneventful therapeutic right hip arthrogram as described. Ordered By: ROLDAN RADER Interpreted By: Abimael Shannon MD, 11/14/2022 12:39 PM us Roldan Rader MD FLUOROSCOPY Final Result documented in this encounter Visit Diagnoses Diagnosis 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- Primary Localized osteoarthrosis not specified whether primary or secondary, pelvic region and thigh 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 Localized osteoarthrosis not specified whether primary or secondary, pelvic region and thigh documented in this encounter Care Teams Unit Leader Relationship Specialty Start Date End Date Asif Coto DO [address] [place] [address] PCP - General FAMILY PRACTICE 09/29/21 documented as of this encounter
--- OUTSIDE RECORDS SUMMARY | 2024-04-23 21:38 | XMS_ITS | Encounter Summary ---
Author Organization [facility] Address [address] [place] [address]. [place] [address] [place] [address] Care Team Providers Care Survey Questionnaire Designer Name Role Phone MushtaqVivi hansonvarsha GANDARA Primary Care Provider [phone] Reason for Visit * Reason Onset Date Comments Follow Up Call 12/27/2022 Encounter Details Date Type Department Care Team (Late st Contact Info) Description 12/27/2022 Telephone [facility] [place] [id number] [facility] [address] [place] [address] Roldan Rader MD [address] [place] [address] Follow Up Call Social History Tobacco Use Types Packs/Day Years [...] Sexual Orientation Straight 02/26/2023 1: 40 PM CONVENTIONAL MACHINIST documented as of this encounter Progress Notes * KATIE Rees - 12/28/2022 2:37 PM CDTAddended by: LEELA LAN on: 12/28/2022 02:37 PM Modules accepted: Orders * KATIE Rees - 12/28/2022 2:32 PM CDT RN reviewed with provider who is agreeable to ordering an injection. Order created at this time. Patient notified, no other questions at this time. * KATIE Rees - 12/27/2022 3:02 PM CDT Patient states that she would like a LEFT hip IA injection. Patient states that her last injection on 09/29/22 provided her with great relief until the last couple of days. She would like to proceed with another injection prior to her follow up apt. She is not currently taking anything for pain relief because she is limited due to an inserted pain pump. She is aware that she will have to wait 6 weeks for any surgical intervention after an injection. Patient voices understanding. Rn advised willreview with provider and advise. * KATIE Rees - 12/27/2022 3:01 PM CDT ----- Message from Adamaris Waddell CNA sent at 12/27/2022 2:11 PM CDT ----- Patient is scheduled for an appointment on Dec.18. She wants to know if Dr Rader would go aheadan scheduled an interarticular hip injection. She is hurting pretty bad then she would follow up with him. Thank you documented in this encounter Plan of Treatment Upcoming Encounters Date Type Department Care Team (Late st Contact Info) Description 04/29/2024 1:45 PM CONVENTIONAL MACHINIST Office Visit [facility] [place] [address] [facility] 1 [place] [address] Sujatha Solis, INTERIOR DECORATOR PAINTING- [address] [place] [address] documented as of this encounter Results * [...] successfullypunctured without incident under fluoroscopic guidance utilizing [id number] spinal needle. Following confirmation of intra- articular [...] Visit Diagnoses Diagnosis Primary osteoarthritis of left hip- Primary Primary localized osteoarthrosis, pelvic region and thigh Primary osteoarthritis of left hip Primary localized osteoarthrosis, pelvic region and thigh documented in this encounter Care Teams Survey Questionnaire Designer Relationship Specialty Start Date End Date Asif Coto DO [address] [place] [address] PCP - General FAMILY PRACTICE 09/29/21 documented as of this encounter
--- OUTSIDE RECORDS SUMMARY | 2024-04-23 21:38 | XMS_ITS | Encounter Summary ---
Author Organization [facility] Address [address] [place] [address]. [place] [address] [place] [address] Care Team Providers Care Commodity Analyst Name Role Phone Asif Coto Primary Care Provider [phone] Encounter Details Date Type Department Care Team (Late Contact Info) Description 11/01/2021 Scan [facility] [address] [place], [place] [id number] Kailash Argueta, DP [address] [place] [address] Social History Tobacco Use Types [...] Sexual Orientation Straight 02/26/2023 1: 40 PM PATROLLER documented as of this encounter Plan of Treatment Upcoming Encounters Date Type Department Care Team (Late Contact Info) Description 04/29/2024 1:45 PM PATROLLER Office Visit [facility] [address] [address] Sujatha Solis, HAND TUFTER-BC [address] [place] [address] Scheduled Orders Name Type Priority Associated Diagnoses Orde r Schedule OUTSIDE LAB (SCAN) Lab Routine Ordere d: 11/11/2021 documented as of this encounter Visit Diagnoses Not on filedocumented in this encounter Care Teams Commodity Analyst Relationship Specialty Start Date End Date Asif Coto DO [address] [place] [address] PCP - General FAMILY PRACTICE 09/29/21 documented as of this encounter
--- OUTSIDE RECORDS SUMMARY | 2024-04-23 21:38 | XMS_ITS | Encounter Summary ---
Author Organization [facility] Address [address] [place] [address]. [place] [address] [place] [address] Care Team Providers Care Anthropology And Archeology Instructor Name Role Phone Asif Coto Primary Care Provider [phone] Encounter Details Date Type Department Care Team (Late Contact Info) Description 04/03/2022 Orders Only [facility] [address] [place] [address] Kailash Argueta, DPM [address] [place] [address] Social History Tobacco Use Types [...] Sexual Orientation Straight 02/26/2023 1: 40 PM DUAL RATE SUPERVISOR documented as of this encounter Plan of Treatment Upcoming Encounters Date Type Department Care Team (Late Contact Info) Description 04/29/2024 1:45 PM DUAL RATE SUPERVISOR Office Visit [facility] [address] [address] Sujatha Solis, COMMERCIAL TELLER-BC [address] [place] [address] documented as of this encounter Visit Diagnoses Diagnosis Hallux valgus with bunions of left foot- Primary Tailor's bunion of left foot documented in this encounter Care Teams Anthropology And Archeology Instructor Relationship Specialty Start Date End Date Asif Coto DO [address] [place] [address] PCP - General FAMILY PRACTICE 09/29/21 documented as of this encounter
--- OUTSIDE RECORDS SUMMARY | 2024-04-23 21:38 | XMS_ITS | Encounter Summary ---
Author Organization [facility] Address [address] [place] [address]. [place] [address] [place] [address] Care Team Providers Care Oncology Rep Specialist Name Role Phone Asif Coto DO Primary Care Provider [phone] Encounter Details Date Type Department Care Team (Latest Contact Info) Description 01/09/2023 Travel Social History Tobacco Use Types Packs/Day [...] Sexual Orientation Straight 02/26/2023 1: 40 PM CANS VACUUM TESTER documented as of this encounter Plan of Treatment Upcoming Encounters Date Type Department Care Team (Late st Contact Info) Description 04/29/2024 1:45 PM CANS VACUUM TESTER Office Visit [facility] [place] [address] [facility] 1 [place] [address] Sujatha Solis, ROLLER PRINTER- [address] [facility] [place] [address] documented as of this encounter Visit Diagnoses Not on filedocumented in this encounter Care Teams Oncology Rep Specialist Relationship Specialty Start Date End Date Asif Coto DO [address] [place] [address] PCP - General FAMILY PRACTICE 09/29/21 documented as of this encounter
--- OUTSIDE RECORDS SUMMARY | 2024-04-23 21:38 | XMS_ITS | Encounter Summary ---
Author Organization [facility] Address [address] [place] [address]. [place] [address] [place] [address] Care Team Providers Care Security System Technician Name Role Phone MushtaqAsif hanson Primary Care Provider [phone] Encounter Details Date Type Department Care Team (Late Contact Info) Description 10/19/2022 Orders Only [facility] [address] [place] [address], [facility] [address] [place] [id number] Roldan Rader MD [address] [place] [address] Social History Tobacco Use Types Packs/Day Years [...] Sexual Orientation Straight 02/26/2023 1: 40 PM SEMICONDUCTOR EQUIPMENT TECHNICIAN COVID-19 Exposure Response Date Recorded In the last 10 days, have yo u been in contact with someone who was confirmed or suspected to have Coronavirus/COVID-19? No / Unsure 09/29/2022 8:45 AM CDT documented as of this encounter Plan of Treatment Upcoming Encounters Date Type Department Care Team (Late Contact Info) Description 04/29/2024 1:45 PM SEMICONDUCTOR EQUIPMENT TECHNICIAN Office Visit [facility] [address] [facility] 1 [place] [address] Sujatha Solis, PRIVATE DUTY LPN- [address] [place] [address] [place] [address] documented as of this encounter Visit Diagnoses Diagnosis Left hip pain- Primary Pain in joint, pelvic region and thigh documented in this encounter Care Teams Security System Technician Relationship Specialty Start Date End Date Asif Coto DO [address] [place] [address] PCP - General FAMILY PRACTICE 09/29/21 documented as of this encounter
--- OUTSIDE RECORDS SUMMARY | 2024-04-23 21:38 | XMS_ITS | Encounter Summary ---
Author Organization [facility] Address [address] [place] [address]. [place] [address] [place] [address] Care Team Providers Care Perianesthesia Rn Name Role Phone NnamdiAsif Primary Care Provider [phone] Encounter Details Date Type Department Care Team (Latest Contact Info) Description 02/13/2023 3:33 PM CDT - 02/13/2023 11:59 PM CDT Hospital Encounter [facility] [address] [facility] [place] [address] Roldan Rader MD [address] [place] [address] Discharge Disposition: Home or Self [...] Sexual Orientation Straight 02/26/2023 1: 40 PM TEST DESKMAN documented as of this encounter Medications at [...] total) by mouth nightly at bedtime. 05/13/2021 [facility] Natural Products (OSTEO BI-FLEX ADV TRIPLE ST) Tab Take 1 tablet by mouth 2 (two) times a day. [place]-3 Fatty Acids (FISH OIL) 500 MG capsule Take 1,000 mg by mouth daily. TRUE METRIX BLOOD GLUCOSE TEST test strip 01/10/2021 TRUEplus Lancets 33G [facility] 01/10/2021 vitamin D3 (CHOLECALCIFEROL) [...] st Contact Info) Description 04/29/2024 1:45 PM TEST DESKMAN Office Visit [facility] [address] [facility], [facility] 1 [place] [address] Sujatha Solis, FOREPART RASPER-BC [address] [facility] [address] documented as of this encounter Procedures Procedure Name Priority Date/Time Associated Diagnosis Comments ECG 12-LEAD Routine 02/13/2023 4:06 PM CDT 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 [facility] ?[address] [place], [place] ??[address] ? Test Date: ?2023-02-13 Pat Name: ? DONNA CHAKA ? Department: ?? 3 ? Room: ? Gender: ? Female ? Surgical Consultant: ?? : ?1955 ? Requested By: ROLDAN RADER Order Number: [id number] ? Reading MD: ?? Cleopatra Price ? Measurements Intervals ?[place] ? Rate: ? 72 ? P: ?74 AK: ? 175 ?QRS: ?83 QRSD: ? 80 ? T: ?65 QT: ? 352 ? QTc: ?388 ? Interpretive Statements SINUS RHYTHM Procedure Note Cleopatra Price MD - 02/13/[address] [place] [address] Test Date: 2023-02-13 Pat Name: DONNA NULL Department: 3 Room: Gender: Female Surgical Consultant: : 1955 Requested By: ROLDAN RADER Order Number: [id number] Reading MD: Cleopatra Price Measurements Intervals [place] Rate: 72 P: 74 AK: 175 QRS: 83 QRSD: 80 T: 65 QT: 352 QTc: 388 Interpretive Statements SINUS RHYTHM us Roldan Rader MD ECG ORDERABLES Final Result [facility] * CULTURE URINE (02/13/2023 3:40 PM CDT) SPEC DESCRIPTION URINE CLEAN CATCH 02/13/2023 4:49 PM CDT [facility] SPECIAL REQUESTS NO SPECIAL REQUEST 02/13/2023 4:49 PM CDT [facility] CULTURE RESULT FEW CONTAMINANTS 05/2022 11:04 AM CDT [facility] URINE SPECIMEN OBTAINED BY CLEAN CATCH PROCEDURE / Unknown 02/13/2023 3:40 PM CDT 02/13/2023 4:48 PM CDT us Roldan Rader MD MICROBIOLOGY - GENERAL ORDERAB LES Final Result [facility] [address] 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
--- OUTSIDE RECORDS SUMMARY | 2024-04-23 21:38 | XMS_ITS | Encounter Summary ---
Author Organization [facility] Address [address] [place] [address]. [place] [address] [place] [address] Care Team Providers Care Fender Repairer Name Role Phone RaviAsif becker Primary Care Provider [phone] Encounter Details Date Type Department Care Team (Late Contact Info) Description 12/14/2021 Orders Only [facility] [address] [place], [place] [id number] Kailash Argueta, DPM [address] [address] Social History Tobacco Use Types [...] Sexual Orientation Straight 02/26/2023 1: 40 PM TEACHER DRAMATICS documented as of this encounter Progress Notes * Dulce Maria Fernandez MA - 12/14/2021 5:08 PM CDT xr documented in this encounter Plan of Treatment Upcoming Encounters Date Type Department Care Team (Late Contact Info) Description 04/29/2024 1:45 PM TEACHER DRAMATICS Office Visit [facility] [address] [facility] 1 [place] [address] Sujatha Solis, [facility]- [address] [facility] [place] [address] documented as of this encounter Visit Diagnoses Diagnosis Hallux valgus with bunions of left foot- Primary 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
--- OUTSIDE RECORDS SUMMARY | 2024-04-23 21:38 | XMS_ITS | Encounter Summary ---
Author Organization [facility] Address [address] [place] [address]. 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 Status post right hip replacement Procedures OFFICE/OUTPATIENT NEW LOW MDM 30-44 MINUTES OFFICE/OUTPT VISIT,NEW,LEVL IV OFFICE/OUTPT VISIT,NEW,LEVL V OFFICE/OUTPT VISIT,EST,LEVL III OFFICE/OUTPT VISIT,EST,LEVL IV OFFICE/OUTPT VISIT,EST,LEVL V Roldan Rader MD [address] [place] [address] Phone: tel: fax: [facility] [address] Phone: tel: fax: Referral ID Status Reason Start Date Expiration Date V isits Requested Visits Authorized [id number] Closed Physical Therapy 01/30/2023 03/01/2024 1 1 Encounter Details Date Type Department Care Team (Late st Contact Info) Description 01/30/2023 Orders Only [facility] [address], [facility] 1 [place] [address] Roldan Rader MD [address] [place] [address] Social History Tobacco Use Types Packs/Day Years [...] Sexual Orientation Straight 02/26/2023 1: 40 PM GRAPE CRUSHER documented as of this encounter Plan of Treatment Upcoming Encounters Date Type Department Care Team (Late st Contact Info) Description 04/29/2024 1:45 PM GRAPE CRUSHER Office Visit [facility] [place] [address] [address] Sujatha Solis, AIRPORT SCREENER- [address] [place] [address] Scheduled Referrals Name Type Priority Associated Diagnoses Orde r Schedule Ambulatory referral to Physical Therapy Referral Routine 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 [facility] ?[address] [place] [address] ? Test Date: ?2023-02-13 Pat Name: ? DONNA CHAKA ? Department: ?? 3 ? Room: ? Gender: ? Female ? Door To Door Selling Agent: ?? : ?1955 ? Requested By: ROLDAN RADER Order Number: [id number] ? Reading MD: ?? Cleopatra Price ? Measurements Intervals ?[place] ? Rate: ? 72 ? P: ?74 ND: ? 175 ?QRS: ?83 QRSD: ? 80 ? T: ?65 QT: ? 352 ? QTc: ?388 ? Interpretive Statements SINUS RHYTHM Procedure Note Cleopatra Price MD - 02/13/2023 [facility] [address] [facility] [address] Test Date: 2023-02-13 Pat Name: DONNA NULL Department: 3 Room: Gender: Female Door To Door Selling Agent: : 1955 Requested By: ROLDAN RADER Order Number: [id number] Reading MD: Cleopatra Price Measurements Intervals [place] Rate: 72 P: 74 ND: 175 QRS: 83 QRSD: 80 T: 65 QT: 352 QTc: 388 Interpretive Statements SINUS RHYTHM us Roldan aRder MD ECG ORDERABLES Final Result [facility] * (ABNORMAL) CBC W/DIFF AUTOMATED (02/13/2023 3:46 PM CDT) WBC 9.29 4.00 - 10.80 x10'3/uL 02/13/2023 4:[address] [facility] RBC 5.24 4.10 - 5.40 x10'6/uL 02/13/2023 4:[address] PM [address] [facility] HGB 15.0 12.0 - 16.0 G/DL 02/13/2023 4:[address] PM [address] [facility] HCT 46.0 36.0 - 47.0 % 02/13/2023 4:[address] [facility] MCV 87.8 78.0 - 100.0 FL 02/13/2023 4:[address] [facility] MCH 28.6 27.0 - 31.0 PG 02/13/2023 4:[address] [facility] MCHC 32.6(L) 33.0 - 36.0 G/DL 02/13/2023 4:[address] [facility] RDW 12.7 11.5 - 14.5 % 02/13/2023 4:[address] PM [address] [facility] PLT 367(H) 150 - 350 x10'3/uL 02/13/2023 4:[address] PM [address] [facility] MPV 10.0 7.4 - 10.4 FL 02/13/2023 4:[address] [facility] CBC COMMENT NORMAL REFERENCE RANGE NOT ESTABLISHED FOR THE PROPORTIONAL LEUKOCYTE DIFFERENTIAL. 02/13/2023 4:[address] [facility] NEUTROPHILS % 60.0 % 02/13/2023 4:[address] [facility] LYMPHOCYTES % 28.0 % 02/13/2023 4:[address] [facility] MONOCYTES % 6.8 % 02/13/2023 4:[address] [facility] EOSINOPHILS % 4.0 % 02/13/2023 4:[address] [facility] BASOPHILS % 0.9 % 02/13/2023 4:[address] [facility] IMMATURE GRANS % 0.3 % 02/14/20 4:[address] [facility] NRBC 0.0 % 02/13/2023 4:[address] [facility] ABS. NEUTROPHILS 5.58 1.60 - 8.30 x10'3/uL 02/13/2023 4:[address] [facility] ABS. LYMPHOCYTES 2.60 0.80 - 4.70 x10'3/uL 02/13/2023 4:[address] [facility] ABS. MONOCYTES 0.63 0.00 - 1.50 x10'3/uL 02/13/2023 4:[address] [facility] ABS. EOSINOPHILS 0.37 0.00 - 0.40 x10'3/uL 02/13/2023 4:[address] [facility] ABS. BASOPHILS 0.08 0.00 - 0.20 x10'3/uL 02/13/2023 4:[address] [facility] ABS. IMMATURE GRANULOCYTES 0.03 0.00 - 0.03 x10'3/uL 02/13/2023 4:[address] [facility] ABS. NUCLEATED RBC'S 0.00 0.00 x10'3/uL 02/13/2023 4:[address] [facility] 02/13/2023 3:46 PM CDT us Roldan Rader MD LABORATORY Final Result [facility] [address] [place] [address], * (ABNORMAL) BASIC METABOLIC PANEL (02/13/2023 3:46 PM CDT) SODIUM S/P/B 140 136 - 145 MMOL/L 02/13/2023 4:[address] [facility] POTASSIUM S/P/B 4.1 3.5 - 5.1 MMOL/L 02/13/2023 4:[address] [facility] CHLORIDE S/P/B 102 98 - 107 MMOL/L 02/13/2023 4:16 PM [address] [facility] CO2 28.1 21.0 - 32.0 MMOL/L 02/13/2023 4:[address] PM [address] [facility] GLUCOSE 92 70 - 99 MG/DL 02/13/2023 4:[address] PM [address] [facility] Comment: FASTING GLUCOSE 100 TO 125 MG/DL IS CONSISTENT WITH IMPAIRED FASTING GLUCOSE. FASTING GLUCOSE >125 MG/DL IS CONSISTENT WITH DIABETES. RANDOM GLUCOSE >200 MG/DL WITH HYPERGLYCEMIC SYMPTOMS IS CONSISTENT WITH DIABETES. PER ADA GUIDELINES BUN 15 6 - 24 MG/DL 02/13/2023 4:[address] [facility] CREATININE S/P/B 0.88 0.55 - 1.02 MG/DL 02/13/2023 4:[address] [facility] CALCIUM S/P/B 10.2 8.4 - 10.5 MG/DL 02/13/2023 4:[address] [facility] ANION GAP 9.9 5.0 - 15.0 MMOL/L 02/13/2023 4:[address] [facility] OSMOLALITY (CALC) 290 MOSM/KG 023 4:[address] [facility] Comment:REFERENCE RANGE NOT ESTABLISHED GFR ESTIMATE 72(L) >89 ML/MIN/1. 73 M2 02/13/2023 4:[address] [facility] GFR NOTES GFR REFERENCE S: 02/13/2023 4:[address] [facility] Comment: THE ESTIMATED GFR [...] <15 ml/min/1.73 m2 02/13/2023 3:46 PM CDT us Roldan Rader MD LABORATORY Final Result [facility] [address] [place] [address], * MRSA SCREENING (02/13/2023 3:41 PM CDT) SOURCE RESPIRATORY, NOSE 02/13/2023 3:36 PM [address] [facility] MRSA BY PCR NASAL METHICILLIN RESISTANT STAPH AUREUS NOT DETECTED METHICILLIN RESISTANT STAPH AUREUS NOT DETECTED 02/15/2023 11:32 AM CDT [facility] NASAL STRUCTURE / Unknown 02/13/2023 3:41 PM CDT us Roldan Rader MD MICROBIOLOGY - GENERAL ORDERAB LES Final Result [facility] [address] [place] [address], [place] [id number] [facility] [address] [place] [address], [place] [phone] * (ABNORMAL) URINALYSIS WI REFLEX TO CULTURE (02/13/2023 3:40 PM CDT) COLOR (U) YELLOW 02/13/2023 4:[address] [facility] TRANSPARENCY CLEAR 02/13/2023 4:[address] [facility] SPECIFIC GRAVITY (U) 1.020 1.000 - 1.025 02/13/2023 4:[address] [facility] U PH 7.5 5.0 - 8.0 02/13/2023 4:[address] [facility] LEUKOCYTES (U) TRACE(A) NEGATIVE 02/13/2023 4:[address] [facility] NITRITES NEGATIVE NEGATIVE 02/13/2023 4:[address] [facility] PROTEIN RANDOM (U) TRACE(A) NEGATIVE 02/13/2023 4:[address] [facility] GLUCOSE (U) NEGATIVE NEGATIVE 02/13/2023 4:46 PM [address] [facility] KETONES MG/DL (U) NEGATIVE NEGATIVE 02/13/2023 4:[address] [facility] UROBILINOGEN 0.2 <1.0 EU/DL 02/13/2023 4:[address] [facility] BILIRUBIN (U) NEGATIVE NEGATIVE 02/13/2023 4:[address] [facility] BLOOD (U) NEGATIVE NEGATIVE 02/13/2023 4:[address] [facility] WBC/HPF 5-10(A) 0 - 5 /HPF 02/13/2023 4:[address] [facility] RBC/HPF 0-5 0 - 5 /HPF 02/13/2023 4:[address] [facility] EPI/LPF 0-5 /LPF 02/13/2023 4:[address] [facility] BACTERIA (U) TRACE /HPF 02/13/2023 4:[address] [facility] MUCUS FEW 02/13/2023 4:[address] [facility] REFLEX URINE CULTURE: SPECIMEN SETUP FOR CULTURE 02/13/2023 4:[address] [facility] URINE SPECIMEN OBTAINED BY CLEAN CATCH PROCEDURE / Unknown 02/13/2023 3:40 PM CDT us Roldan Rader MD URINE ORDERABLES Final Result 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
--- OUTSIDE RECORDS SUMMARY | 2024-04-23 21:38 | XMS_ITS | Encounter Summary ---
Author Organization [facility] Address [address] [place] [address]. [place] [address] [place] [address] Care Team Providers Care Community Services Coordinator Name Role Phone MushtaqAsif hanson Primary Care Provider Reason for Visit * Reason Onset Date Comments Information 11/11/2021 XR orders Encounter Details Date Type Department Care Team (Late st Contact Info) Description 11/11/2021 Telephone [facility] [address] [place] [address] Kailash Argueta, DP [address] [place] [address] Information (XR orders) Social History [...] Sexual Orientation Straight 02/26/2023 1: 40 PM BEVEL OPERATOR documented as of this encounter Progress Notes * Dulce Maria Fernandez MA - 11/11/2021 10:58 AM CDT Called pt to let them know XR orders will be faxed to [facility], and to get them done before appointment with [facility] on 11/18/21. Pt is aware and voiced understanding. documented in this encounter Plan of Treatment Upcoming Encounters Date Type Department Care Team (Late st Contact Info) Description 04/29/2024 1:45 PM BEVEL OPERATOR Office Visit [place] [address] [facility] 1 [place] [address] Sujatha Solis, SALES ANALYST- [address] [place] [address] [place] [address] documented as of this encounter Visit Diagnoses Not on filedocumented in this encounter Care Teams Community Services Coordinator Relationship Specialty Start Date End Date Asif Coto DO [address] [place] [address] PCP - General FAMILY PRACTICE 09/29/21 documented as of this encounter
--- OUTSIDE RECORDS SUMMARY | 2024-04-23 21:38 | XMS_ITS | Encounter Summary ---
Author Organization [facility] Address [address] [place] [address]. [place] [address] [place] [address] Care Team Providers Care Bedspread Cutter Name Role Phone Asif Coto DO Primary Care Provider [phone] Encounter Details Date Type Department Care Team (Latest Contact Info) Description 02/13/2023 Travel Social History Tobacco Use Types Packs/Day [...] Sexual Orientation Straight 02/26/2023 1: 40 PM MOLECULAR GENETIC PATHOLOGIST documented as of this encounter Plan of Treatment Upcoming Encounters Date Type Department Care Team (Late st Contact Info) Description 04/29/2024 1:45 PM MOLECULAR GENETIC PATHOLOGIST Office Visit [facility] [place] [address] [facility] 1 [place] [address] Sujatha Solis, LOCAL INTERMODAL TRUCK DRIVER- [address] [facility] [place] [address] documented as of this encounter Visit Diagnoses Not on filedocumented in this encounter Care Teams Bedspread Cutter Relationship Specialty Start Date End Date Asif Coto DO [address] [place] [address] PCP - General FAMILY PRACTICE 09/29/21 documented as of this encounter
--- OUTSIDE RECORDS SUMMARY | 2024-04-23 21:38 | XMS_ITS | Encounter Summary ---
Author Organization [facility] Address [address] [place] [address]. [place] [address] [place] [address] Care Team Providers Care Home Lending Officer Name Role Phone Asif Coto DO Primary Care Provider [phone] Reason for Visit * Reason Onset Date Comments Disability Form 02/14/2023 Leave paperwork for son Encounter Details Date Type Department Care Team (Late st Contact Info) Description 02/14/2023 Telephone [facility] [place] [id number] [facility] 1 [place] [address] Roldan Rader MD [address] [place] [id number] Disability Form (Leave paperwork for son ) Social History Tobacco Use Types Packs/Day Years [...] Sexual Orientation Straight 02/26/2023 1: 40 PM LOGISTICS ASSOCIATE documented as of this encounter Progress Notes * Power Goldsmith RN - 02/14/2023 4:34 PM CDT Patient called back in after son picked up paperwork to discuss some concerns on the form. Concerns discussed and advised to contact our office if his work requires additional information regarding leave paperwork. * Power Goldsmith RN - 02/14/2023 1:17 PM CDT Call placed to patient's son regarding FMLA paperwork completed and available for case picker at his convenience. Also phone number for [facility] in [place] given and advised patient needs to contact to set up appointment for PT after surgery. He verbalized understanding and no further questions at this time. documented in this encounter Plan of Treatment Upcoming Encounters Date Type Department Care Team (Late st Contact Info) Description 04/29/2024 1:45 PM LOGISTICS ASSOCIATE Office Visit [facility] [address] [place] [address] Sujatha Solis, SUPERINTENDENT FISH HATCHERY-[address] [place] [address] documented as of this encounter Visit Diagnoses Not on filedocumented in this encounter Care Teams Home Lending Officer Relationship Specialty Start Date End Date Asif Coto DO [address] [place] [address] PCP - General FAMILY PRACTICE 09/29/21 documented as of this encounter
--- OUTSIDE RECORDS SUMMARY | 2024-04-23 21:38 | XMS_ITS | Encounter Summary ---
Author Organization [facility] Address [address] [place] [address]. [place] [address] [place] [address] Care Team Providers Care Catering Operations Manager Name Role Phone MushtaqAsif hanson Primary Care Provider [phone] Encounter Details Date Type Department Care Team (Latest Contact Info) Description 09/22/2022 10:45 AM CDT - 09/22/2022 11:59 PM CDT Hospital Encounter [facility] [address] [place] [address] Roldan Rader MD [address] [place] [address] Discharge Disposition: Home or Self [...] Sexual Orientation Straight 02/26/2023 1: 40 PM ASSISTANT COUNSEL COVID-19 Exposure Response Date Recorded In the [...] total) by mouth nightly at bedtime. 05/13/2021 [facility] Natural Products (OSTEO BI-FLEX ADV TRIPLE ST) Tab Take 1 tablet by mouth 2 (two) times a day. [place]-3 Fatty Acids (FISH OIL) 500 MG capsule Take 1,000 mg by mouth daily. TRUE METRIX BLOOD GLUCOSE TEST test strip 01/10/2021 TRUEplus Lancets 33G [facility] 01/10/2021 vitamin D3 (CHOLECALCIFEROL) 25 [...] daily. 30 tablet 2 08/08/2022 4 RYBELSUS 7 MG Tab 08/22/2022 02 3 traZODone 50 MG tablet Take 1 tablet (50 mg total) by mouth nightly at bedtime. 05/12/2021 4 documented as of this encounter Plan of Treatment Upcoming Encounters Date Type Department Care Team (Late st Contact Info) Description 04/29/2024 1:45 PM ASSISTANT COUNSEL Office Visit [facility] [place] [address] [facility] 1 [place] [address] Sujatha Solis, TRAVEL MONEY ADVISOR- [address] [facility] [place] [place] [address] documented as of this encounter Procedures Procedure Name Priority Date/Time Associated Diagnosis Comments XR PELVIS 1 OR 2 VIEWS Routine 09/22/2022 11:41 AM CDT Chronic left hip pain documented in this encounter Results * XR PELVIS 1 [...] encounter Visit Diagnoses Diagnosis Chronic left hip pain Pain in joint, pelvic region and thigh documented in this encounter Care Teams Catering Operations Manager Relationship Specialty Start Date End Date Asif Coto DO [address] [place] [address] PCP - General FAMILY PRACTICE 09/29/21 documented as of this encounter
--- OUTSIDE RECORDS SUMMARY | 2024-04-23 21:38 | XMS_ITS | Encounter Summary ---
Author Organization [facility] Address [address] [place] [address]. [place] [address] [place] [address] Care Team Providers Care Glaze Wiper Name Role Phone Katelyn Hood Primary Care Provider [phone] Reason for Visit * Reason Comments Surgery Encounter Details Date Type Department Care Team (Late st Contact Info) Description 07/27/2022 3:30 PM CDT [facility] [address] [address] Jasmyne Fay, DPM [address] [place] [address] Surgery Social History Tobacco Use [...] Sexual Orientation Straight 02/26/2023 1: 40 PM AEROLOGIST documented as of this encounter Progress Notes * Jasmyne Fay MD - 07/27/2022 3:30 PM CDT Reason for Visit: Surgery History of Present Illness: Patient presents for surgical invention on her left foot. Review Of Systems: Negative except the HPI. Medications: Current Outpatient Medications: HYDROcodone-acetaminophen (NORCO) 5-325 MG tablet, Take 1 tablet by mouth every 4 (four) hours as needed for Pain. Indications: Acute Pain < 7 Day Supply, Disp: 42 tablet, Rfl: 0 amLODIPine 10 MG tablet, , Disp: , Rfl: atorvastatin 40 MG tablet, , Disp: , Rfl: Blood Glucose Monitoring Suppl (TRUE METRIX METER) w/Device Kit, , Disp: , Rfl: carbidopa-levodopa 10-100 MG tablet, , Disp: , Rfl: carbidopa-levodopa 25-100 MG tablet, , Disp: , Rfl: chlorhexidine (HIBICLENS) 4 % Liquid, Use the night before surgery and the morning of surgery., Disp: 118 mL, Rfl: 0 chlorhexidine (HIBICLENS) 4 % Liquid, Use the night before surgery and the morning of surgery., Disp: 118 mL, Rfl: 0 clonazePAM 0.5 MG tablet, , Disp: , Rfl: liothyronine 25 MCG tablet, , Disp: , Rfl: lisinopril 20 MG tablet, , Disp: , Rfl: lisinopril 5 MG tablet, , Disp: , Rfl: metFORMIN ER 500 MG 24 hr tablet, , Disp: , Rfl: ondansetron 8 MG tablet, Take 1 tablet (8 mg total) by mouth every 8 (eight) hours as needed., Disp: 20 tablet, Rfl: 0 pimozide 2 MG tablet, , Disp: , Rfl: propranolol 40 MG tablet, , Disp: , Rfl: traZODone 50 MG tablet, , Disp: , Rfl: TRUE METRIX BLOOD GLUCOSE TEST test strip, , Disp: , Rfl: TRUEplus Lancets 33G [facility], , Disp: , Rfl: Allergies:No Known Allergies Past Medical History: Diagnosis Date Chronic back pain Hypertension Past Surgical History: Procedure Laterality Date BACK SURGERY Social History Socioeconomic History Marital status: Tobacco Use Smoking status: Never Smokeless tobacco: Never Vaping Use Vaping Use: Unknown Substance and Sexual Activity Alcohol use: Not Currently Drug use: Never Family History Problem Relation Name Age of Onset Thyroid Disease Other Family Status Relation Name Status Other (Not Specified) PHYSICAL EXAM There were no vitals filed for this visit. The left hallux is in a rectus [...] the left foot are reviewed in the [place] PACS system showing a well-healed first and fifth metatarsal osteotomy. There is plantar prominence of one of the screws as well as either bone callus or exostosis plantar to the fifth metatarsal neck/distal shaft area. No results found for: NA, K, CL, CO2, AGAP, BUN, CR, BUNCREATININ, GFRNON, GFR, GLU, CA, TP, ALB, TBIL, ALKP, AST, ALT No results found for: ESR No results found for: CRP No results found for: URIC No results found for: CULTRESULT Radiology Results (Last 30 days) None Diagnoses/Impression: Encounter Diagnose(s) ICD-10-CM ICD-9-CM 1. Exostosis of left foot M89.8X7 726.91 2. Postoperative pain G89.18 338.18 HYDROcodone-acetaminophen (NORCO) 5-325 MG tablet 3. Painful orthopaedic hardware ([facility]) T84.84XA 996.78 Recommendations and Plan: We discussed the planned procedures at length including removal of the screws from the fifth metatarsal as well as plantar fifth metatarsal exostectomy. The patient will be immediately weightbearing in a surgical shoe. Burkett was prescribed to be taken as needed for pain sent to her pharmacy. She will elevate and ice her left foot as needed for pain and swelling. She will maintain her dressing clean dry and intact until her first postoperative follow-up with us in 2 weeks. All questions answered, no promises or guarantees made. JASMYNE FAY MD Referring Provider: No ref. provider found PCP: KATELYN HOOD DO documented in this encounter Plan of Treatment Upcoming Encounters Date Type Department Care Team (Late st Contact Info) Description 04/29/2024 1:45 PM [place]OLOG[place] [address] Sujatha Solis, DINKEY PRESS OPERATOR- [address] [facility] [place] [address] documented as of this encounter Visit Diagnoses Diagnosis Exostosis of left foot- Primary Postoperative pain Other acute postoperative pain Painful orthopaedic hardware (CMS/HCC) documented in this encounter Care Teams Glaze Wiper Relationship Specialty Start Date End Date Katelyn Hood DO [address] [place] [address] PCP - General FAMILY PRACTICE 09/29/21 documented as of this encounter
--- OUTSIDE RECORDS SUMMARY | 2024-04-23 21:38 | XMS_ITS | Encounter Summary ---
Author Organization [facility] Address [address] [place] [address]. [place] [address] [place] [address] Care Team Providers Care Retail Event And Sales Assistant Name Role Phone John Strange DDJaleesa Primary Care Provider [phone] Reason for Visit * Reason Comments Ingrown Toenail Ankle/foot Pain Encounter Details Date Type Department Care Team (Late st Contact Info) Description 08/19/2021 11:15 AM CDT [facility] [address] [address] Jasmyne Fay, DPM [address] [place] [address] Ingrown Toenail; Ankle/foot Pain Social History Tobacco Use Types Packs/Day Years [...] Sexual Orientation Straight 02/26/2023 1: 40 PM REGULATORY AFFAIRS STRATEGY SPECIALIST documented as of this encounter Last Filed Vital Signs Vital Sign Reading Time Taken Comments Blood Pressure - - Pulse - - Temperature - - Respiratory Rate - - Oxygen Saturation - - Inhaled Oxygen Concentration - - Weight 59 kg (130 lb) 08/19/2021 11:30 AM CDT Height 165.1 cm (5' 5 ) 08/19/2021 11:30 AM CDT Body Mass Index 21.63 08/19/2021 11:30 AM CDT documented in this encounter Progress Notes * Jasmyne Fay MD - 08/19/2021 11:15 AM CDT Reason for Visit: Ingrown Toenail and Ankle/foot Pain History of Present Illness: Patient returns for follow-up of permanent nail removal of her left great toenail, she thinks that this feels great. She would like to have her bunion fixed soon as possible. Also notes a painful spot on the tip of her left third toe that has bothered her now for months andmay be years. She has drained this with a needle in the past noting considerable bloody drainage. She notes that while she is on metformin she is not technically diabetic and does not check her blood sugars. She denies any numbness tingling and burning in her feet. Denies history of diabetic ulceration. Review Of Systems: Negative except the HPI. [...] Other (Not Specified) PHYSICAL EXAM Matricectomy site is completely healed with a superficial eschar but no underlying fibrotic tissue.This is painless to palpation. Nonpalpable pedals pulses bilaterally. Absent pedal hair [...] of motion. Light touch sensation intact per [place] Jason monofilament wire. Diminished medial arch height bilaterally. There is instability of the left medial column, specifically I believe this is from the naviculocuneiform joint as opposed to the first metatarsocuneiform joint. Purple slightly fluctuant tender skin lesion to the tip of the left third toe measuring 1 x 0.8 cm,this is consistent with a hemangioma. 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 Tailor's bunion of left foot M21.622 727.1 4. Hemangioma of skin D18.01 228.01 5. Dystrophic nail L60.3 703.8 Recommendations and Plan: Matricectomy site is completely healed, no need for further bandaging. We discussed treatment options and the lesion of the tip of her third toe, we did offer surgical excision likely with cauterization of the wound as opposed to primary closure. We discussed that she would have to heal this from the bottom up by secondary intention and she would like to go ahead withthis when we fix her bunions. We discussed additionally this would require a first and fifth metatarsal osteotomy with a soft tissue bunionectomy. The patient will be me immediately weightbearing in a surgical shoe. She had expect several months of pain and swelling afterwards. She would like this to be done as soon as possible. She will see her primary care provider for preoperative history and p hysical. All questions answered, no problems or guarantees made. JASMYNE FAY MD Referring Provider: No ref. 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
--- OUTSIDE RECORDS SUMMARY | 2024-04-23 21:38 | XMS_ITS | Encounter Summary ---
Author Organization [facility] Address [address] [place] [address]. [place] [address] [place] [address] Care Team Providers Care Mileage Clerk Name Role Phone NnamdiAsif Primary Care Provider [phone] Encounter Details Date Type Department Care Team (Latest Contact Info) Description 01/30/2023 11:12 AM CDT - 01/30/2023 11:59 PM CDT Hospital Encounter [facility] [address] [place] [address] Roldan Rader MD [address] [place] [address] Discharge Disposition: Home or Self [...] Sexual Orientation Straight 02/26/2023 1: 40 PM JEWEL BEARING MAKER documented as of this encounter Medications at [...] total) by mouth nightly at bedtime. 05/13/2021 [facility] Natural Products (OSTEO BI-FLEX ADV TRIPLE ST) Tab Take 1 tablet by mouth 2 (two) times a day. [place]-3 Fatty Acids (FISH OIL) 500 MG capsule Take 1,000 mg by mouth daily. TRUE METRIX BLOOD GLUCOSE TEST test strip 01/10/2021 TRUEplus Lancets 33G [facility] 01/10/2021 vitamin D3 (CHOLECALCIFEROL) 25 mcg tablet Take 1 tablet (25 mcg total) by mouth daily. clobetasol (TEMOVATE) 0.05 % cream Apply topically 2 (two) times daily. 10/31/2022 3 Levothyroxine Sodium 50 MCG Cap Take 75 mcg by mouth every morning. 07/25/2022 4 meloxicam (MOBIC) 15 MG tabletIndications:Pr imary osteoarthritis of left knee Take 0.5 tablets (7.5 mg total) by mouth daily. 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 30 tablet 2 01/30/2023 3 OZEMPIC, 0.25 OR 0.5 MG/DOSE, 2 MG/3ML injection (PEN) Inject 0.25 mg into the skin every 7 days. Sunday01/23/2023 4 traZODone 50 MG tablet Take 1 tablet (50 mg total) by mouth nightly at bedtime. 05/12/2021 4 documented as of this encounter Plan of Treatment Upcoming Encounters Date Type Department Care Team (Late st Contact Info) Description 04/29/2024 1:45 PM JEWEL BEARING MAKER Office Visit [facility] [address] [facility] 1 [place] [address] Sujatha Solis, HOSPITAL DIRECTOR-BC [address] [place] [address] documented as of this encounter Procedures Procedure Name Priority Date/Time Associated Diagnosis Comments XR KNEE STAND AP JENNIE ONLY Routine 01/30/2023 11:57 AM CDT Right knee pain, unspecified chronicity XR KNEE RT 2V Routine 01/30/2023 11:57 AM CDT Right knee pain, unspecified chronicity documented in this encounter Results * XR KNEE RT [...] chronicity documented in this encounter Care Teams Mileage Clerk Relationship Specialty Start Date End Date Asif Coto DO [address] [place] [address] PCP - General FAMILY PRACTICE 09/29/21 documented as of this encounter
--- OUTSIDE RECORDS SUMMARY | 2024-04-23 21:38 | XMS_ITS | Encounter Summary ---
Author Organization [facility] Address [address] [place] [address]. [place] [address] [place] [address] Care Team Providers Care Sausage Linker Name Role Phone Nnamdi Asif GANDARA Primary Care Provider [phone] Reason for Visit * Reason Comments Hip Pain LEFT Encounter Details Date Type Department Care Team (Late st Contact Info) Description 09/22/2022 10:45 AM CDT Office Visit [facility] [address], [facility] 1 [place] [address] Roldan Rader MD [address] [place] [address] Hip Pain (LEFT) Social History Tobacco Use [...] Sexual Orientation Straight 02/26/2023 1: 40 PM BAGGAGE INSPECTOR COVID-19 Exposure Response Date Recorded In the [...] - - Weight 77.1 kg (170 lb) 09/22/2022 10:56 AM CDT Height 165.1 cm (5' 5 ) 09/22/2022 10:56 AM CDT Body Mass Index 28.29 09/22/2022 10:56 AM CDT documented in this encounter Progress Notes * Deidre Alfaro LPN - 09/22/2022 10:45 AM CDT Donna is a 66-year-old female who presents for Hip Pain (LEFT) Patient in clinic today with LEFT hip pain. Patient is ambulating with a cane. Patient reports usesa walker at home. Patient in office today with a friend. Patient complains of LEFT hip pain. Pain started in LEFT hip a couple weeks ago. Denies injury. Reports some numbness and radiation. Prolongedsitting or walking makes pain worse. Patient has never had any injections and is not doing any PT. Patient taking Vicodin with no relief. Patient uses heat at bedtime. Pain interrupts sleep. Patient is not employed. No additional nursing task documentation needed. Vitals: 09/22/22 1056 Weight: 78 kg (172 lb) Height: 5' 5 (1.651 m) Current Outpatient Medications Medication Sig losartan (COZAAR) 50 MG tablet RYBELSUS 7 MG Tab amLODIPine 10 MG tablet atorvastatin 40 MG [...] Supply (Patient not taking: Reported on 08/08/2022) levothyroxine (SYNTHROID) 75 MCG tablet Take 1 tablet (75 mcg total) by mouth every morning. lisinopril 20 MG tablet 5 mg. lisinopril 5 MG tablet meloxicam (MOBIC) 15 MG tablet Take 0.5 tablets (7.5 mg total) by mouth daily. metFORMIN ER 500 MG 24 hr tablet [facility] Natural Products (OSTEO BI-FLEX ADV TRIPLE ST) Tab Take 1 tablet by mouth 2 (two) times a day. [place]-3 Fatty Acids (FISH OIL) 500 MG capsule Take 1,000 mg by mouth daily. traZODone 50 MG tablet TRUE METRIX BLOOD GLUCOSE TEST test strip TRUEplus Lancets 33G [facility] vitamin D3 (CHOLECALCIFEROL) 25 mcg tablet Take 1 tablet (25 mcg total) by mouth daily. Past Surgical History: Procedure Laterality Date BACK SURGERY x3 FOOT SURGERY Left 07/27/2022 FOOT SURGERY Right 2001 KNEE ARTHROPLASTY Right 04/01/2014 Allergies Patient has no known allergies. [x] Total Fwiu-ef-Vril Assessment Time: 0-15 minutes Additional Contributory Factors NONE * Roldan Rader MD - 09/22/2022 10:45 AM CDT Chief Complaint: Hip Pain (LEFT) History of Present Illness: Donna Saunders is a 66-year-old female who presents to the office for Hip Pain (LEFT) Patient in clinic today with LEFT hip pain. Patient is ambulating with a cane. Patient reports usesa walker at home. Patient in office today with a friend. Patient complains of LEFT hip pain. Pain started in LEFT hip a couple weeks ago. Denies injury. Reports some numbness and radiation. Prolongedsitting or walking makes pain worse. Patient has never had any injections and is not doing any PT. Patient taking Vicodin with no relief. Patient uses heat at bedtime. Pain interrupts sleep. Patient is not employed. ROS: See HPI for pertinent positives Problem [...] Day Supply, Disp: 42 tablet, Rfl: 0 levothyroxine (SYNTHROID) 75 MCG tablet, Take 1 tablet (75 mcg total) by mouth every morning., Disp: , Rfl: lisinopril 5 MG tablet, , Disp: , Rfl: losartan (COZAAR) 50 MG tablet, , Disp: , Rfl: meloxicam (MOBIC) 15 MG tablet, Take 0.5 tablets (7.5 mg total) by mouth daily., Disp: 30 tablet, Rfl: 2 metFORMIN ER 500 MG 24 hr tablet, , Disp: , Rfl: [facility] Natural Products (OSTEO BI-FLEX ADV TRIPLE ST) Tab, Take 1 tablet by mouth 2 (two) times a day., Disp: , Rfl: [place]-3 Fatty Acids (FISH OIL) 500 MG capsule, Take 1,000 mg by mouth daily., Disp: , Rfl: RYBELSUS 7 MG Tab, , Disp: , Rfl: traZODone 50 MG tablet, , Disp: , Rfl: TRUE METRIX BLOOD GLUCOSE TEST test strip, , Disp: , Rfl: TRUEplus Lancets 33G [facility], , Disp: , Rfl: vitamin D3 (CHOLECALCIFEROL) 25 mcg tablet, Take 1 tablet (25 mcg total) by mouth daily., Disp: , Rfl: lisinopril 20 MG tablet, 5 mg. (Patient not taking: Reported on 09/22/2022), Disp: , Rfl: Review of patient's allergies indicates: No Known Allergies Objective: Body mass index is 28.29 kg/m??. Last Recorded Weight 09/22/22 1056 Weight: 77.1 kg (170 lb) Physical exam: Constitutional: Alert and in no acute distress. Neurological: The patient was oriented to person, place, and time. Eyes: The sclera and conjunctiva were normal ENT: Hearing was normal. Neck: The appearance of the neck was normal. Cardiovascular: Normal pulses. Pulmonary: No respiratory distress. Skin: No injuries or skin lesion. Musculoskeletal: Left hip examination demonstrates restricted range of motion with groin pain produced. She has difficulty straight leg raising against gravity. 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 Primary osteoarthritis of left hip M16.12 715.15 OSTEOARTHRITIS OF LEFT HIP JOINT XR HIP INJ/ASPLT Plan: Patient has findings consistent with osteoarthritis however she indicates she has only had about 2 weeks of pain in her left hip without any antecedent trauma. I recommended left hip intra-articular injection and we will set this up with radiology. I will see her back in a month Follow up: Return in about 4 weeks (around 10/20/2022). ROLDAN RADER MD documented in this encounter Plan of Treatment Upcoming Encounters Date Type Department Care Team (Late st Contact Info) Description 04/29/2024 1:45 PM BAGGAGE INSPECTOR Office Visit [facility] [place] [address] [facility] 1 [place] [address] Sujatha Solis, PARTNER CCO-BC [address] [facility] [place] [address] documented as of this encounter Results * [...] By: Vik Pinto MD, 09/29/2022 4:20 PM us Roldan Rader MD FLUOROSCOPY Final Result documented in this encounter Visit Diagnoses Diagnosis Primary osteoarthritis of left hip- Primary Primary localized osteoarthrosis, pelvic region and thigh Primary osteoarthritis of left hip Primary localized osteoarthrosis, pelvic region and thigh documented in this encounter Care Teams Sausage Linker Relationship Specialty Start Date End Date Asif Coto DO [address] [place] [address] PCP - General FAMILY PRACTICE 09/29/21 documented as of this encounter
--- OUTSIDE RECORDS SUMMARY | 2024-04-23 21:38 | XMS_ITS | Encounter Summary ---
Author Organization [facility] Address [address] [place] [address]. [place] [address] [place] [address] Care Team Providers Care Operations And Maintenance Manager Name Role Phone NnamdiAsif Primary Care Provider [phone] Encounter Details Date Type Department Care Team (Latest Contact Info) Description 11/14/2022 10:00 AM CDT - 11/14/2022 11:59 PM CDT Hospital Encounter [facility] [address] [facility] [address] Roldan Rader MD [address] [place] [address] Discharge Disposition: Home or Self [...] Sexual Orientation Straight 02/26/2023 1: 40 PM FLUE TILE PRESS OPERATOR documented as of this encounter Medications at [...] total) by mouth nightly at bedtime. 05/13/2021 [facility] Natural Products (OSTEO BI-FLEX ADV TRIPLE ST) Tab Take 1 tablet by mouth 2 (two) times a day. [place]-3 Fatty Acids (FISH OIL) 500 MG capsule Take 1,000 mg by mouth daily. TRUE METRIX BLOOD GLUCOSE TEST test strip 01/10/2021 TRUEplus Lancets 33G [facility] 01/10/2021 vitamin D3 (CHOLECALCIFEROL) 25 mcg tablet Take 1 tablet (25 mcg total) by mouth daily. clobetasol (TEMOVATE) 0.05 % cream Apply topically 2 (two) times daily. 10/31/2022 3 HYDROcodone-acetamin ophen (NORCO) 5-325 MG tabletIndications:[place] Pain < 7 Day Supply Take 1 [...] 4 RYBELSUS 14 MG Tab 09/28/2022 3 traZODone 50 MG tablet Take 1 tablet (50 mg total) by mouth nightly at bedtime. 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 Localized osteoarthrosis not specified whether primary or secondary, pelvic region and thigh documented in this encounter Administered Medications Inactive Administered Medications - up to 3 most recent administrations Medication Order MAR Action Action Date Dose Rate Site lidocaine-EPINEPHrine 1 %-1: injection 4 mL 4 mL, Other, Once, 1 dose, On Sun11/14/22 at 1115 Given 11/14/2022 11:15 AM CDT 4 mLs Right Hip methylPREDNISolone acetate (DEPO-Medrol) injection 80 mg 80 mg, Intramuscular, Once, 1 dose, On Sun11/14/22 at 1115, Shake Well Given 11/14/2022 11:15 AM CDT 80 mg Othe r documented in this encounter Care Teams Operations And Maintenance Manager Relationship Specialty Start Date End Date Asif Coto DO [address] [place] [address] PCP - General FAMILY PRACTICE 09/29/21 documented as of this encounter
--- OUTSIDE RECORDS SUMMARY | 2024-04-23 21:38 | XMS_ITS | Encounter Summary ---
Author Organization [facility] Address [address] [place] [address]. [place] [address] [place] [address] Care Team Providers Care Welder Helper Name Role Phone Asif Coto Primary Care Provider [phone] Encounter Details Date Type Department Care Team (Late Contact Info) Description 05/02/2022 Orders Only [facility] [address] [place] [address] Kailash Argueta, DP [address] [place] [address] Social History Tobacco Use Types [...] Sexual Orientation Straight 02/26/2023 1: 40 PM RADIO DIVISION CAPTAIN documented as of this encounter Plan of Treatment Upcoming Encounters Date Type Department Care Team (Late Contact Info) Description 04/29/2024 1:45 PM RADIO DIVISION CAPTAIN Office Visit [facility] [address] [address] Sujatha Solis, SEARCH COORDINATOR-BC [address] [place] [address] documented as of this encounter Visit Diagnoses Not on filedocumented in this encounter Care Teams Welder Helper Relationship Specialty Start Date End Date Asif Coto DO [address] [place] [address] PCP - General FAMILY PRACTICE 09/29/21 documented as of this encounter
--- OUTSIDE RECORDS SUMMARY | 2024-04-23 21:38 | XMS_ITS | Encounter Summary ---
Author Organization [facility] Address [address] [place] [address]. [place] [address] [place] [address] Care Team Providers Care Seamark Advanced Operator Maintainer Name Role Phone MushtaqKatelyn hanson Primary Care Provider [phone] Reason for Visit * Reason Comments Postop Followup Encounter Details Date Type Department Care Team (Late st Contact Info) Description 2021 1:00 PM CDT [facility] [address] [address] Jasmyne Fay, DPM [address] [place] [address] Postop Followup Social History Tobacco [...] Orientation Straight 02/26/2023 1: 40 PM IT SOFTWARE DEVELOPER documented as of this encounter Last Filed Vital Signs Vital Sign Reading Time Taken Comments Blood Pressure - - Pulse - - Temperature - - Respiratory Rate - - Oxygen Saturation - - Inhaled Oxygen Concentration - - Weight 59 kg (130 lb) 2021 1:22 PM CDT Height 165.1 cm (5' 5 ) 2021 1:22 PM CDT Body Mass Index 21.63 2021 1:22 PM CDT documented in this encounter Progress Notes * Jasmyne Fay MD - 2021 1:00 PM CDT Reason for Visit: Postop Followup History of Present Illness: Patient returns for her first postop visit status post first and fifth metatarsal osteotomy soft tissue anatomy with removal of hemangioma of the left third toe. She notes that pain control was more than adequate she is very happy with how things went she did take about 10 pain pills total but overall is doing very well, she is ambulating with a surgical shoe and crutches at this point. Review Of Systems: Negative except the HPI. [...] Status ??? Other (Not Specified) PHYSICAL EXAM First ray, fifth ray and distal third toe incisions are well coapted with expected surrounding edema and no erythema no dehiscence and no drainage today. Great toe sits in a better position with no obvious prominence over the first or fifth metatarsal head. Decreased medial arch height bilaterally. Neurovascular status intact. Radiographs: 3 views of the left foot are reviewed showing interval change with a left first and fifth metatarsal osteotomy with good alignment of the osteotomies and good alignment of the respectiverays. Filed Vitals: 11/18/21 1322 Weight: 59 kg (130 lb) Height: 5' [...] with bunions of left foot M20.12 735.0 STRAPPING OF TOES M21.612 727.1 Recommendations and Plan: Third toe sutures removed today, Steri-Strips applied. No need for further bandaging, did recommenda compression stocking. Patient can slowly increase weightbearing as tolerated in the surgical shoewith crutches, follow-up 4 weeks, will repeat 3 views of the left foot and likely transition to a regular supportive shoe. We did strap the great toe in an anatomic position which she will continue for the next 3 months at nighttime. JASMYNE FAY MD Referring Provider: No ref. provider found PCP: KATELYN HOOD DO documented in this encounter Plan of Treatment Upcoming Encounters Date Type Department Care Team (Late st Contact Info) Description 04/29/2024 1:45 PM IT SOFTWARE DEVELOPER Office Visit [facility] [address] [facility] 1 [place] [address] Sujatha Solis, PASSENGER TIRE BUILDER- [address] [facility] [address] Scheduled Orders Name Type Priority Associated Diagnoses Orde r Schedule STRAPPING OF TOES Procedures Routine Hallux valgus with bunions of left foot Ordered: 2021 documented as of this encounter Visit Diagnoses Diagnosis Hallux valgus with bunions of left foot- Primary documented in this encounter Care Teams Seamark Advanced Operator Maintainer Relationship Specialty Start Date End Date Katelyn Hood DO [address] [place] [address] PCP - General FAMILY PRACTICE 09/29/21 documented as of this encounter
--- OUTSIDE RECORDS SUMMARY | 2024-04-23 21:38 | XMS_ITS | Encounter Summary ---
Author Organization [facility] Address [address] [place] [address]. [place] [address] [place] [address] Care Team Providers Care Detective Captain Name Role Phone John Strange DDJaleesa Primary Care Provider [phone] Reason for Visit * Reason Comments Ingrown Toenail Follow Up Encounter Details Date Type Department Care Team (Late st Contact Info) Description 07/15/2021 10:00 AM CDT [facility] [address] [address] Jasmyne Fay, DPM [address] [place] [address] Ingrown Toenail; Follow Up Social History Tobacco Use Types Packs/Day Years [...] Sexual Orientation Straight 02/26/2023 1: 40 PM QA ANALYST documented as of this encounter Last Filed Vital Signs Vital Sign Reading Time Taken Comments Blood Pressure - - Pulse - - Temperature - - Respiratory Rate - - Oxygen Saturation - - Inhaled Oxygen Concentration - - Weight 59 kg (130 lb) 07/15/2021 10:14 AM CDT Height 165.1 cm (5' 5 ) 07/15/2021 10:14 AM CDT Body Mass Index 21.63 07/15/2021 10:14 AM CDT documented in this encounter Progress Notes * Jasmyne Fay MD - 07/15/2021 10:00 AM CDT Reason for Visit: Ingrown Toenail and Follow Up History of Present Illness: Patient returns for permanent removal or have a left great toenail. She would also like to discuss her x-rays and have her bunion fixed. She did try the toe spacer and this did not give her any relief. Review Of Systems: Negative except the HPI. Medications: Current Outpatient Medications: ??? clindamycin 300 MG capsule, Take 1 capsule (300 mg total) by mouth 3 (three) times daily for 10days., Disp: 30 capsule, Rfl: 0 ??? amLODIPine 10 MG tablet, , Disp: [...] Disp: , Rfl: ??? TRUEplus Lancets 33G Mis, , Disp: , Rfl: Allergies:No Known Allergies [...] ??? Other (Not Specified) PHYSICAL EXAM The entirety of the left great toenail is loose thick crumbly incredibly dystrophic and painful to palpation, this is incurvated medially and laterally with no surrounding erythema nor edema. Nonpalpable pedals pulses bilaterally. Absent pedal hair [...] of motion. Light touch sensation intact per [place] Jason monofilament wire. Diminished medial arch height bilaterally. There is instability of the left medial column, specifically I believe this is from the naviculocuneiform joint as opposed to the first metatarsocuneiform joint. Radiographs: 3 views left foot are performed reviewed showing an increase in the first intermetatarsal angle, increase in the hallux abductus angle, increase in the fourth intermetatarsal angle and lateral deviation angle. There appears to be no plantar gapping of the first metatarsocuneiform jointbut there is a significant step-off with plantar gapping at the naviculocuneiform joint. Filed Vitals: 07/15/21 1014 Weight: 59 kg (130 lb) Height: 5' [...] None Diagnoses/Impression: Encounter Diagnose(s) ICD-10-CM ICD-9-CM 1. Dystrophic nail L60.3 703.8 REMOVAL OF NAIL BED 2. Ingrowing nail L60.0 703.0 REMOVAL OF NAIL BED 3. Atherosclerosis of hughes artery of both lower extremities with intermittent claudication (CMS/HCC) I70.213 440.21 NONINVASV EXTREM EXAM,MULT,BILAT 4. Hallux valgus with bunions of left foot M20.12 735.0 M21.612 727.1 5. Tailor's bunion of left foot M21.622 727.1 Recommendations and Plan: We discussed permanent removal of the patient's left great toenail which she agrees to today. In order to confirm that the patient would heal the procedure uneventfully, we did perform noninvasive vascular studies with functional provocative maneuvers and waveforms with a resulting HUNTER of 1.03 on the right and 1.34 on the left with biphasic waveforms indicating the patient should heal without anydifficulty. She wishes to proceed. Left great toe total nail avulsion with matricectomy: After surgical consent was signed, the offending digit was anesthetized with 3 cc of 1% lidocaine plain in a digit block fashion. After a betadine prep, the offending nail was loosened with a spatula, and the entire nail was removed with a hemostat. The matrix was debrided with a curette and an adson brown forceps, and three 30 second applications of phenol were then applied and flushed with alcohol. Hemostasis was achieved with pressure, amerigel ointment and a bandaid were then applied. Patient instructed to keep this covered at all times except during bathing, and an oral antibiotic was prescribed to prevent infection. Patient will follow-up in 2 weeks. Discussed the results of the x-rays which show medial column instability at the naviculocuneiform joint as opposed to the first metatarsocuneiform joint. That combined with the relatively wide first metatarsal head and mild to moderate deformity, I believe a first metatarsal osteotomy, soft tissue bunionectomy and hallux osteotomy would be appropriate to address the first ray pathology. 5th metatarsal osteotomy would be appropriate to address the tailor's bunion. We discussed this would be doneon an outpatient basis under MAC local anesthesia. Patient will be immediately weightbearing in a surgical shoe. She can expect several months of pain and swelling. She would like to proceed with this after she heals from any toenail procedure. JASMYNE FAY MD Referring Provider: No ref. provider found PCP: John Strange DDS documented in this encounter Plan of Treatment Upcoming Encounters Date Type Department Care Team (Late st Contact Info) Description 04/29/2024 1:45 PM QA ANALYST Office Visit [address] [address] Sujatha Solis, [place] [address] Scheduled Orders Name Type Priority Associated Diagnoses Orde r Schedule NONINVASV EXTREM EXAM,MULT,BILAT Procedures Routine Atherosclerosis of hughes artery of both lower extremities with intermittent claudication Ordered: 07/15/2021 REMOVAL OF NAIL BED Procedures Routine Dystrophic nail Ingrowing nail Ordered: 07/15/2021 documented as of this encounter Visit Diagnoses Diagnosis Dystrophic nail- Primary Other specified disease of nail Ingrowing nail Atherosclerosis of hughes artery of both lower extremities with intermittent claudication (CMS/HCC) Atherosclerosis of hughes arteries of the extremities with intermittent claudication Hallux valgus with bunions of left foot Tailor's bunion of left foot documented in this encounter Care Teams Detective Captain Relationship Specialty Start Date End Date John Strange DDS [address] [place] [address] PCP - General PREVENTIVE MEDICINE 07/25/18 09/28/21 documented as of this encounter
--- OUTSIDE RECORDS SUMMARY | 2024-04-23 21:38 | XMS_ITS | Encounter Summary ---
Author Organization [facility] Address [address] [place] [address]. [place] [address] [place] [address] Care Team Providers Care Counter Stitcher Name Role Phone Asif Coto Primary Care Provider [phone] Encounter Details Date Type Department Care Team (Late Contact Info) Description 09/29/2021 Orders Only [facility] [address] [facility] [address] [place], [place] [address] Kailash Argueta, DPM [address] [place] [address] Social History Tobacco Use Types [...] Sexual Orientation Straight 02/26/2023 1: 40 PM PARKING OFFICER documented as of this encounter Plan of Treatment Upcoming Encounters Date Type Department Care Team (Late Contact Info) Description 04/29/2024 1:45 PM PARKING OFFICER Office Visit [facility] [address] [address] Sujatha Solis, SOFTWARE DEVELOPMENT ADVISOR-BC [address] [place] [address] documented as of this encounter Visit Diagnoses Not on filedocumented in this encounter Care Teams Counter Stitcher Relationship Specialty Start Date End Date Asif Coto DO [address] [place] [address] PCP - General FAMILY PRACTICE 09/29/21 documented as of this encounter
--- OUTSIDE RECORDS SUMMARY | 2024-04-23 21:38 | XMS_ITS | Encounter Summary ---
Author Organization [facility] Address [address] [place] [address]. [place] [address] [place] [address] Care Team Providers Care High School English Teacher Name Role Phone MushtaqAsif hanson Primary Care Provider [phone] Reason for Visit * Reason Onset Date Comments Disability Form 02/19/2023 Changes needed t o paperwork Encounter Details Date Type Department Care Team (Late st Contact Info) Description 02/19/2023 Telephone [facility] [place] [id number] [facility], [address] [address] Roldan Rader MD [address] [place] [address] Disability Form (Changes needed to paperwork) Social History Tobacco Use Types Packs/Day Years [...] Orientation Straight 02/26/2023 1: 40 PM CUSTOMER ENGAGEMENT ANALYST documented as of this encounter Progress Notes * Power Goldsmith RN - 02/19/2023 2:19 PM CST Darwin called in stating his work will not accept TBD for return to work date. Will make necessary changes and fax per request to HR:[phone] and Total Absence;[phone] OMER ENGAGEMENT ANALYST documented in this encounter Plan of Treatment Upcoming Encounters Date Type Department Care Team (Late st Contact Info) Description 04/29/2024 1:45 PM CUSTOMER ENGAGEMENT ANALYST Office Visit [place] [id number] [facility] 1 [place], [place] [address] Sujatha Solis, [facility] [place] [address] documented as of this encounter Visit Diagnoses Not on filedocumented in this encounter Care Teams High School English Teacher Relationship Specialty Start Date End Date Asif Coto DO [address] [place] [address] PCP - General FAMILY PRACTICE 09/29/21 documented as of this encounter
--- OUTSIDE RECORDS SUMMARY | 2024-04-23 21:39 | XMS_ITS | Encounter Summary ---
Author Organization [facility] Address [address] [place] [address]. [place] [address] [place] [address] Care Team Providers Care Head Of Housekeeping Name Role Phone Unavailable Primary Care Provider Unavailabl e Encounter Details Date Type Department Care Team (Late Contact Info) Description 06/12/1994 Abstract [facility] [address] [place] [address] , Generic Conversion, Social History Tobacco Use Types Packs/Day Years Used Date Smoking Tobacco: Never Assessed Comments Unknown Sex and Gender Information Value Date Recorded Sex Assigned at Female 08/07/2022 4:17 PM CDT Legal Sex Female 8:54 PM CDT Gender Identity Female 08/07/2022 4:17 PM CDT Sexual Orientation Straight 02/26/2023 1: 40 PM WARPER TENDER documented as of this encounter Plan of Treatment Upcoming Encounters Date Type Department Care Team (Late Contact Info) Description 04/29/2024 1:45 PM WARPER TENDER Office Visit [facility] [address] [place] [address] Sujatha Solis, TANNING DRUM OPERATOR-BC [address] [place] [address] documented as of this encounter Visit Diagnoses Not on filedocumented in this encounter
--- OUTSIDE RECORDS SUMMARY | 2024-04-23 21:39 | XMS_ITS | Encounter Summary ---
Author Organization [facility] Address [address] [place] [address]. [place] [address] [place] [address] Care Team Providers Care Exchange Consultant Name Role Phone Unavailable Primary Care Provider Unavailabl e Encounter Details Date Type Department Care Team (Late Contact Info) Description 04/13/2014 Abstract [facility] [address] [place] [address] Iván Josue MD [address] [place] [address] [address] [address] [place], [place] [address] Social History Tobacco Use Types Packs/Day Years Used Date Smoking Tobacco: Never Assessed Comments Unknown Sex and Gender Information Value Date Recorded Sex Assigned at Female 08/07/2022 4:17 PM CDT Legal Sex Female 8:54 PM CDT Gender Identity Female 08/07/2022 4:17 PM CDT Sexual Orientation Straight 02/26/2023 1: 40 PM PYROTECHNIC MIXER documented as of this encounter Plan of Treatment Upcoming Encounters Date Type Department Care Team (Late Contact Info) Description 04/29/2024 1:45 PM PYROTECHNIC MIXER Office Visit [facility] [address] [place] [address] 1 [place] [address] Sujatha Solis, INDUSTRIAL EDITOR-BC [address] [place] [address] documented as of this encounter Visit Diagnoses Diagnosis [facility] current use of anticoagulant therapy documented in this encounter
--- OUTSIDE RECORDS SUMMARY | 2024-04-23 21:39 | XMS_ITS | Encounter Summary ---
Author Organization [facility] Address [address] [place] [address]. [place] [address] [place] [address] Care Team Providers Care Designer Name Role Phone Unavailable Primary Care Provider Unavailabl e Encounter Details Date Type Department Care Team (Late Contact Info) Description 10/02/1997 Abstract [facility] [address] [place] [address] , Generic Conversion, Social History Tobacco Use Types Packs/Day Years Used Date Smoking Tobacco: Never Assessed Comments Unknown Sex and Gender Information Value Date Recorded Sex Assigned at Female 08/07/2022 4:17 PM CDT Legal Sex Female 8:54 PM CDT Gender Identity Female 08/07/2022 4:17 PM CDT Sexual Orientation Straight 02/26/2023 1: 40 PM DIRECTOR ENTERPRISE DATA ARCHITECTURE documented as of this encounter Plan of Treatment Upcoming Encounters Date Type Department Care Team (Late Contact Info) Description 04/29/2024 1:45 PM DIRECTOR ENTERPRISE DATA ARCHITECTURE Office Visit [facility] [place] [address] [facility] 1 [place] [address] Sujatha Solis, NOTCHER-BC [address] [place] [address] documented as of this encounter Visit Diagnoses Not on filedocumented in this encounter
--- OUTSIDE RECORDS SUMMARY | 2024-04-23 21:39 | XMS_ITS | Encounter Summary ---
Author Organization [facility] Address [address] [place] [address]. [place] [address] [place] [address] Care Team Providers Care Security System Engineer Name Role Phone Unavailable Primary Care Provider Unavailabl e Encounter Details Date Type Department Care Team (Late Contact Info) Description 07/08/1997 Abstract [facility] [address] [place] [address] , Generic Conversion, Social History Tobacco Use Types Packs/Day Years Used Date Smoking Tobacco: Never Assessed Comments Unknown Sex and Gender Information Value Date Recorded Sex Assigned at Female 08/07/2022 4:17 PM CDT Legal Sex Female 8:54 PM CDT Gender Identity Female 08/07/2022 4:17 PM CDT Sexual Orientation Straight 02/26/2023 1: 40 PM DATA ANALYTICS DEVELOPER documented as of this encounter Plan of Treatment Upcoming Encounters Date Type Department Care Team (Late Contact Info) Description 04/29/2024 1:45 PM DATA ANALYTICS DEVELOPER Office Visit [facility] [address] [place] [address] Sujatha Solis, MANAGER STERILE PROCESSING-BC [address] [place] [address] documented as of this encounter Visit Diagnoses Not on filedocumented in this encounter
--- OUTSIDE RECORDS SUMMARY | 2024-04-23 21:39 | XMS_ITS | Encounter Summary ---
Author Organization [facility] Address [address] [place] [address]. [place] [address] [place] [address] Care Team Providers Care Sales Advisor Name Role Phone Unavailable Primary Care Provider Unavailabl e Encounter Details Date Type Department Care Team (Late st Contact Info) Description 02/17/2007 Abstract [facility] [address] [place] [address] Deny Ascencio, Social History Tobacco Use Types Packs/Day Years Used Date Smoking Tobacco: Never Assessed Comments Unknown Sex and Gender Information Value Date Recorded Sex Assigned at Female 08/07/2022 4:17 PM CDT Legal Sex Female 8:54 PM CDT Gender Identity Female 08/07/2022 4:17 PM CDT Sexual Orientation Straight 02/26/2023 1: 40 PM PRODUCT MARKETING DIRECTOR documented as of this encounter Plan of Treatment Upcoming Encounters Date Type Department Care Team (Late Contact Info) Description 04/29/2024 1:45 PM PRODUCT MARKETING DIRECTOR Office Visit [facility] [address] [place] [address] 1 [place] [address] Sujatha Solis, WATERSIDE WORKER-BC [address] [place] [address] documented as of this encounter Visit Diagnoses Not on filedocumented in this encounter
--- OUTSIDE RECORDS SUMMARY | 2024-04-23 21:39 | XMS_ITS | Encounter Summary ---
Author Organization [facility] Address [address] [place] [address]. [place] [address] [place] [address] Care Team Providers Care High Worker Name Role Phone Unavailable Primary Care Provider Unavailabl e Encounter Details Date Type Department Care Team (Late Contact Info) Description 06/16/1994 Abstract [facility] [address] [place] [address] , Generic Conversion, Social History Tobacco Use Types Packs/Day Years Used Date Smoking Tobacco: Never Assessed Comments Unknown Sex and Gender Information Value Date Recorded Sex Assigned at Female 08/07/2022 4:17 PM CDT Legal Sex Female 8:54 PM CDT Gender Identity Female 08/07/2022 4:17 PM CDT Sexual Orientation Straight 02/26/2023 1: 40 PM LABORER ADJUSTABLE STEEL JOIST documented as of this encounter Plan of Treatment Upcoming Encounters Date Type Department Care Team (Late Contact Info) Description 04/29/2024 1:45 PM LABORER ADJUSTABLE STEEL JOIST Office Visit [facility] [address] 1 [place] [address] Sujatha Solis, HISTORY PROFESSOR-BC [address] [place] [address] documented as of this encounter Visit Diagnoses Not on filedocumented in this encounter
--- OUTSIDE RECORDS SUMMARY | 2024-04-23 21:39 | XMS_ITS | Encounter Summary ---
Author Organization [facility] Address [address] [place] [address]. [place] [address] [place] [address] Care Team Providers Care Granite Cutter Name Role Phone Unavailable Primary Care Provider Unavailabl e Encounter Details Date Type Department Care Team (Late Contact Info) Description 12/25/2000 Abstract [facility] [address] [place] [address] , Generic Conversion, Social History Tobacco Use Types Packs/Day Years Used Date Smoking Tobacco: Never Assessed Comments Unknown Sex and Gender Information Value Date Recorded Sex Assigned at Female 08/07/2022 4:17 PM CDT Legal Sex Female 8:54 PM CDT Gender Identity Female 08/07/2022 4:17 PM CDT Sexual Orientation Straight 02/26/2023 1: 40 PM APPAREL DESIGNER documented as of this encounter Plan of Treatment Upcoming Encounters Date Type Department Care Team (Late Contact Info) Description 04/29/2024 1:45 PM APPAREL DESIGNER Office Visit [facility] [place] [address] [facility] 1 [place] [address] Sujatha Solis, NETWORK CONTROL SUPERVISOR-BC [address] [place] [address] documented as of this encounter Visit Diagnoses Not on filedocumented in this encounter
--- OUTSIDE RECORDS SUMMARY | 2024-04-23 21:39 | XMS_ITS | Encounter Summary ---
Author Organization [facility] Address [address] [place] [address]. [place] [address] [place] [address] Care Team Providers Care School Social Worker Name Role Phone Unavailable Primary Care Provider Unavailabl e Encounter Details Date Type Department Care Team (Late Contact Info) Description 03/07/1999 Abstract [facility] [address] [place] [address] , Generic Conversion, Social History Tobacco Use Types Packs/Day Years Used Date Smoking Tobacco: Never Assessed Comments Unknown Sex and Gender Information Value Date Recorded Sex Assigned at Female 08/07/2022 4:17 PM CDT Legal Sex Female 8:54 PM CDT Gender Identity Female 08/07/2022 4:17 PM CDT Sexual Orientation Straight 02/26/2023 1: 40 PM DISPATCHER AUTOMOBILE RENTAL documented as of this encounter Plan of Treatment Upcoming Encounters Date Type Department Care Team (Late Contact Info) Description 04/29/2024 1:45 PM DISPATCHER AUTOMOBILE RENTAL Office Visit [facility] [place] [phone] [facility] 1 [place] [address] Sujatha Solis, ROUTER OPERATOR PIN-BC [address] [place] [address] documented as of this encounter Visit Diagnoses Not on filedocumented in this encounter
--- OUTSIDE RECORDS SUMMARY | 2024-04-23 21:39 | XMS_ITS | Encounter Summary ---
Author Organization [facility] Address [address] [place] [address]. [place] [address] [place] [address] Care Team Providers Care Motor Checker Name Role Phone Unavailable Primary Care Provider Unavailabl e Encounter Details Date Type Department Care Team (Late Contact Info) Description 05/14/2001 Abstract [facility] [address] [place] [address] , Generic Conversion, Social History Tobacco Use Types Packs/Day Years Used Date Smoking Tobacco: Never Assessed Comments Unknown Sex and Gender Information Value Date Recorded Sex Assigned at Female 08/07/2022 4:17 PM CDT Legal Sex Female 8:54 PM CDT Gender Identity Female 08/07/2022 4:17 PM CDT Sexual Orientation Straight 02/26/2023 1: 40 PM SALES REPRESENTATIVE CASH REGISTERS documented as of this encounter Plan of Treatment Upcoming Encounters Date Type Department Care Team (Late Contact Info) Description 04/29/2024 1:45 PM SALES REPRESENTATIVE CASH REGISTERS Office Visit [facility] [place] [address] [facility] 1 [place] [address] Sujatha Solis, SUPERVISOR TITLE-BC [address] [place] [address] documented as of this encounter Visit Diagnoses Not on filedocumented in this encounter
--- OUTSIDE RECORDS SUMMARY | 2024-04-23 21:39 | XMS_ITS | Encounter Summary ---
Author Organization [facility] Address [address] [place] [address]. [place] [address] [place] [address] Care Team Providers Care Director Heart Name Role Phone Unavailable Primary Care Provider Unavailabl e Encounter Details Date Type Department Care Team (Late Contact Info) Description 08/13/2000 Abstract [facility] [address] [place] [address] , Generic Conversion, Social History Tobacco Use Types Packs/Day Years Used Date Smoking Tobacco: Never Assessed Comments Unknown Sex and Gender Information Value Date Recorded Sex Assigned at Female 08/07/2022 4:17 PM CDT Legal Sex Female 8:54 PM CDT Gender Identity Female 08/07/2022 4:17 PM CDT Sexual Orientation Straight 02/26/2023 1: 40 PM NUCLEAR EQUIPMENT SALES ENGINEER documented as of this encounter Plan of Treatment Upcoming Encounters Date Type Department Care Team (Late Contact Info) Description 04/29/2024 1:45 PM NUCLEAR EQUIPMENT SALES ENGINEER Office Visit [facility] [place] [address] [facility] 1 [place] [address] Sujatha Solis, SCALE ASSEMBLY SET UP WORKER-BC [address] [place] [address] documented as of this encounter Visit Diagnoses Not on filedocumented in this encounter
--- OUTSIDE RECORDS SUMMARY | 2024-04-23 21:39 | XMS_ITS | Encounter Summary ---
Author Organization [facility] Address [address] [place] [address]. [place] [address] [place] [address] Care Team Providers Care Fuse Cutter Name Role Phone Unavailable Primary Care Provider Unavailabl e Encounter Details Date Type Department Care Team (Late Contact Info) Description 11/25/1998 Abstract [facility] [address] [place] [address] , Generic Conversion, Social History Tobacco Use Types Packs/Day Years Used Date Smoking Tobacco: Never Assessed Comments Unknown Sex and Gender Information Value Date Recorded Sex Assigned at Female 08/07/2022 4:17 PM CDT Legal Sex Female 8:54 PM CDT Gender Identity Female 08/07/2022 4:17 PM CDT Sexual Orientation Straight 02/26/2023 1: 40 PM WREATH AND GARLAND MAKER HAND documented as of this encounter Plan of Treatment Upcoming Encounters Date Type Department Care Team (Late Contact Info) Description 04/29/2024 1:45 PM WREATH AND GARLAND MAKER HAND Office Visit [facility] [place] [phone] [facility] 1 [place] [address] Sujatha Solis, AUDIOVISUAL TECH-BC [address] [place] [address] documented as of this encounter Visit Diagnoses Not on filedocumented in this encounter
--- OUTSIDE RECORDS SUMMARY | 2024-04-23 21:39 | XMS_ITS | Encounter Summary ---
Author Organization [facility] Address [address] [place] [address]. [place] [address] [place] [address] Care Team Providers Care Microsoft Dynamics Manager Architect Name Role Phone Unavailable Primary Care Provider Unavailabl e Encounter Details Date Type Department Care Team (Late Contact Info) Description 08/21/1990 Abstract [facility] [address] [place] [address] , Generic Conversion, Social History Tobacco Use Types Packs/Day Years Used Date Smoking Tobacco: Never Assessed Comments Unknown Sex and Gender Information Value Date Recorded Sex Assigned at Female 08/07/2022 4:17 PM CDT Legal Sex Female 8:54 PM CDT Gender Identity Female 08/07/2022 4:17 PM CDT Sexual Orientation Straight 02/26/2023 1: 40 PM VP FOUNDATION documented as of this encounter Plan of Treatment Upcoming Encounters Date Type Department Care Team (Late Contact Info) Description 04/29/2024 1:45 PM VP FOUNDATION Office Visit [facility] [address] [facility] 1 [place] [address] Sujatha Solis, FIRE HOSE CURER- [address] [facility] [place] [address] documented as of this encounter Visit Diagnoses Not on filedocumented in this encounter
--- OUTSIDE RECORDS SUMMARY | 2024-04-23 21:39 | XMS_ITS | Encounter Summary ---
Author Organization [facility] Address [address] [place] [address]. [place] [address] [place] [address] Care Team Providers Care Business Development Assistant Name Role Phone Unavailable Primary Care Provider Unavailabl e Encounter Details Date Type Department Care Team (Late Contact Info) Description 09/25/1997 Abstract [facility] [address] [place] [address] , Generic Conversion, Social History Tobacco Use Types Packs/Day Years Used Date Smoking Tobacco: Never Assessed Comments Unknown Sex and Gender Information Value Date Recorded Sex Assigned at Female 08/07/2022 4:17 PM CDT Legal Sex Female 8:54 PM CDT Gender Identity Female 08/07/2022 4:17 PM CDT Sexual Orientation Straight 02/26/2023 1: 40 PM DONKEY RIDE OPERATOR documented as of this encounter Plan of Treatment Upcoming Encounters Date Type Department Care Team (Late Contact Info) Description 04/29/2024 1:45 PM DONKEY RIDE OPERATOR Office Visit [facility] [place] [phone] [facility] 1 [place] [address] Sujatha Solis, SUPERVISOR ORE DRESSING-BC [address] [place] [address] documented as of this encounter Visit Diagnoses Not on filedocumented in this encounter
--- OUTSIDE RECORDS SUMMARY | 2024-04-23 21:39 | XMS_ITS | Encounter Summary ---
Author Organization [facility] Address [address] [place] [address]. [place] [address] [place] [address] Care Team Providers Care Machinist First Class Name Role Phone Unavailable Primary Care Provider Unavailabl e Encounter Details Date Type Department Care Team (Late st Contact Info) Description 02/28/2008 Abstract [facility] [address] [place] [address] Ephraim Wu MD [address] [address] Social History Tobacco Use Types Packs/Day Years Used Date Smoking Tobacco: Never Assessed Comments Unknown Sex and Gender Information Value Date Recorded Sex Assigned at Female 08/07/2022 4:17 PM CDT Legal Sex Female 8:54 PM CDT Gender Identity Female 08/07/2022 4:17 PM CDT Sexual Orientation Straight 02/26/2023 1: 40 PM MANAGER SOFTWARE documented as of this encounter Plan of Treatment Upcoming Encounters Date Type Department Care Team (Late Contact Info) Description 04/29/2024 1:45 PM MANAGER SOFTWARE Office Visit [facility] [address] [place] [address] 1 [place], [place] [address] Sujatha Solis, [facility] [address] [place] [address] documented as of this encounter Visit Diagnoses Not on filedocumented in this encounter
--- OUTSIDE RECORDS SUMMARY | 2024-04-23 21:39 | XMS_ITS | Encounter Summary ---
Author Organization [facility] Address [address] [place] [address]. [place] [address] [place] [address] Care Team Providers Care [place] Attorney Name Role Phone Unavailable Primary Care Provider Unavailabl e Encounter Details Date Type Department Care Team (Late Contact Info) Description 11/20/2005 Abstract [facility] [address] [place] [address] , Emma Foy MD Social History Tobacco Use Types Packs/Day Years Used Date Smoking Tobacco: Never Assessed Comments Unknown Sex and Gender Information Value Date Recorded Sex Assigned at Female 08/07/2022 4:17 PM CDT Legal Sex Female 8:54 PM CDT Gender Identity Female 08/07/2022 4:17 PM CDT Sexual Orientation Straight 02/26/2023 1: 40 PM INTERNAL AUDIT SENIOR MANAGER documented as of this encounter Plan of Treatment Upcoming Encounters Date Type Department Care Team (Late Contact Info) Description 04/29/2024 1:45 PM INTERNAL AUDIT SENIOR MANAGER Office Visit [facility] [address] [place] [address] 1 [place] [address] Sujatha Solis, FINE UNHAIRER-BC [address] [place] [address] documented as of this encounter Visit Diagnoses Not on filedocumented in this encounter
--- OUTSIDE RECORDS SUMMARY | 2024-04-23 21:39 | XMS_ITS | Encounter Summary ---
Author Organization [facility] Address [address] [place] [address]. [place] [address] [place] [address] Care Team Providers Care Radiologic Electronic Specialist Name Role Phone Unavailable Primary Care Provider Unavailabl e Encounter Details Date Type Department Care Team (Late Contact Info) Description 08/12/1995 Abstract [facility] [address] [place] [address] , Generic Conversion, Social History Tobacco Use Types Packs/Day Years Used Date Smoking Tobacco: Never Assessed Comments Unknown Sex and Gender Information Value Date Recorded Sex Assigned at Female 08/07/2022 4:17 PM CDT Legal Sex Female 8:54 PM CDT Gender Identity Female 08/07/2022 4:17 PM CDT Sexual Orientation Straight 02/26/2023 1: 40 PM URGENT CARE NURSE PRACTITIONER documented as of this encounter Plan of Treatment Upcoming Encounters Date Type Department Care Team (Late Contact Info) Description 04/29/2024 1:45 PM URGENT CARE NURSE PRACTITIONER Office Visit [facility] [address] 1 [place] [address] Sujatha Solis, ASSISTANT GENERAL MANAGER-BC [address] [place] [address] documented as of this encounter Visit Diagnoses Not on filedocumented in this encounter
--- OUTSIDE RECORDS SUMMARY | 2024-04-23 21:39 | XMS_ITS | Encounter Summary ---
Author Organization [facility] Address [address] [place] [address]. [place] [address] [place] [address] Care Team Providers Care Canvas Cutter Hand Name Role Phone Unavailable Primary Care Provider Unavailabl e Encounter Details Date Type Department Care Team (Late Contact Info) Description 08/10/1998 Abstract [facility] [address] [place] [address] , Generic Conversion, Social History Tobacco Use Types Packs/Day Years Used Date Smoking Tobacco: Never Assessed Comments Unknown Sex and Gender Information Value Date Recorded Sex Assigned at Female 08/07/2022 4:17 PM CDT Legal Sex Female 8:54 PM CDT Gender Identity Female 08/07/2022 4:17 PM CDT Sexual Orientation Straight 02/26/2023 1: 40 PM AMBULANCE DISPATCHER documented as of this encounter Plan of Treatment Upcoming Encounters Date Type Department Care Team (Late Contact Info) Description 04/29/2024 1:45 PM AMBULANCE DISPATCHER Office Visit [facility] [place] [phone] [facility] 1 [place] [address] Sujatha Solis, [place] OR LUNCHROOM CHECKER-BC [address] [place] [address] documented as of this encounter Visit Diagnoses Not on filedocumented in this encounter
--- OUTSIDE RECORDS SUMMARY | 2024-04-23 21:39 | XMS_ITS | Encounter Summary ---
Author Organization [facility] Address [address] [place] [address]. [place] [address] [place] [address] Care Team Providers Care Machine Assistant Name Role Phone Unavailable Primary Care Provider Unavailabl e Encounter Details Date Type Department Care Team (Late Contact Info) Description 11/27/2000 Abstract [facility] [address] [place] [address] , Generic Conversion, Social History Tobacco Use Types Packs/Day Years Used Date Smoking Tobacco: Never Assessed Comments Unknown Sex and Gender Information Value Date Recorded Sex Assigned at Female 08/07/2022 4:17 PM CDT Legal Sex Female 8:54 PM CDT Gender Identity Female 08/07/2022 4:17 PM CDT Sexual Orientation Straight 02/26/2023 1: 40 PM CLOTH NAPPING SUPERVISOR documented as of this encounter Plan of Treatment Upcoming Encounters Date Type Department Care Team (Late Contact Info) Description 04/29/2024 1:45 PM CLOTH NAPPING SUPERVISOR Office Visit [facility] [place] [address] [facility] 1 [place] [address] Sujatha Solis, SERVICE SUPPORT REPRESENTATIVE-BC [address] [place] [address] documented as of this encounter Visit Diagnoses Not on filedocumented in this encounter
--- OUTSIDE RECORDS SUMMARY | 2024-04-23 21:39 | XMS_ITS | Encounter Summary ---
Author Organization [facility] Address [address] [place] [address]. [place] [address] [place] [address] Care Team Providers Care Sap Data Analyst Name Role Phone Unavailable Primary Care Provider Unavailabl e Encounter Details Date Type Department Care Team (Late st Contact Info) Description 01/05/2004 Abstract [facility] [address] [place] [address] Oj Perkins MD [address] [place] [address] Social History Tobacco Use Types Packs/Day Years Used Date Smoking Tobacco: Never Assessed Comments Unknown Sex and Gender Information Value Date Recorded Sex Assigned at Female 08/07/2022 4:17 PM CDT Legal Sex Female 8:54 PM CDT Gender Identity Female 08/07/2022 4:17 PM CDT Sexual Orientation Straight 02/26/2023 1: 40 PM HOSPICE ADMINISTRATOR documented as of this encounter Plan of Treatment Upcoming Encounters Date Type Department Care Team (Late st Contact Info) Description 04/29/2024 1:45 PM HOSPICE ADMINISTRATOR Office Visit [facility] [address] 1 [place] [address] Sujatha Solis, VOCATIONAL REHABILITATION COUNSELOR- [address] [place] [address] documented as of this encounter Visit Diagnoses Not on filedocumented in this encounter
--- OUTSIDE RECORDS SUMMARY | 2024-04-23 21:39 | XMS_ITS | Encounter Summary ---
Author Organization [facility] Address [address] [place] [address]. [place] [address] [place] [address] Care Team Providers Care Drainage Engineer Name Role Phone Unavailable Primary Care Provider Unavailabl e Encounter Details Date Type Department Care Team (Late Contact Info) Description 02/10/2004 Abstract [facility] [address] [place] [address] , Generic Conversion, Social History Tobacco Use Types Packs/Day Years Used Date Smoking Tobacco: Never Assessed Comments Unknown Sex and Gender Information Value Date Recorded Sex Assigned at Female 08/07/2022 4:17 PM CDT Legal Sex Female 8:54 PM CDT Gender Identity Female 08/07/2022 4:17 PM CDT Sexual Orientation Straight 02/26/2023 1: 40 PM CORE DRILL OPERATOR documented as of this encounter Plan of Treatment Upcoming Encounters Date Type Department Care Team (Late Contact Info) Description 04/29/2024 1:45 PM CORE DRILL OPERATOR Office Visit [facility] [address] [facility] 1 [place] [address] Sujatha Solis, MONUMENT CARVER- [address] [place] [address] documented as of this encounter Visit Diagnoses Not on filedocumented in this encounter
--- OUTSIDE RECORDS SUMMARY | 2024-04-23 21:39 | XMS_ITS | Encounter Summary ---
Author Organization [facility] Address [address] [place] [address]. [place] [address] [place] [address] Care Team Providers Care Home Care Giver Name Role Phone Unavailable Primary Care Provider Unavailabl e Encounter Details Date Type Department Care Team (Late Contact Info) Description 05/01/2000 Abstract [facility] [address] [place] [address] , Generic Conversion, Social History Tobacco Use Types Packs/Day Years Used Date Smoking Tobacco: Never Assessed Comments Unknown Sex and Gender Information Value Date Recorded Sex Assigned at Female 08/07/2022 4:17 PM CDT Legal Sex Female 8:54 PM CDT Gender Identity Female 08/07/2022 4:17 PM CDT Sexual Orientation Straight 02/26/2023 1: 40 PM HOME OFFICE REPRESENTATIVE documented as of this encounter Plan of Treatment Upcoming Encounters Date Type Department Care Team (Late Contact Info) Description 04/29/2024 1:45 PM HOME OFFICE REPRESENTATIVE [facility] [place] [address] [facility] 1 [place] [address] Sujatha Solis, FILER HELPER-BC [address] [place] [address] documented as of this encounter Visit Diagnoses Not on filedocumented in this encounter
--- OUTSIDE RECORDS SUMMARY | 2024-04-23 21:39 | XMS_ITS | Encounter Summary ---
Author Organization [facility] Address [address] [place] [address]. [place] [address] [place] [address] Care Team Providers Care Food Service Representative Name Role Phone Unavailable Primary Care Provider Unavailabl e Encounter Details Date Type Department Care Team (Late Contact Info) Description 04/06/2014 Abstract [facility] [address] [place] [address] Iván Josue MD [address] [place] [address] [address] [place], [place] [address] Social History Tobacco Use Types Packs/Day Years Used Date Smoking Tobacco: Never Assessed Comments Unknown Sex and Gender Information Value Date Recorded Sex Assigned at Female 08/07/2022 4:17 PM CDT Legal Sex Female 8:54 PM CDT Gender Identity Female 08/07/2022 4:17 PM CDT Sexual Orientation Straight 02/26/2023 1: 40 PM EXPORT MANAGER documented as of this encounter Plan of Treatment Upcoming Encounters Date Type Department Care Team (Late Contact Info) Description 04/29/2024 1:45 PM EXPORT MANAGER Office Visit [facility] [address] [place] [address] 1 [place] [address] Sujatha Solis, HOSPICE PLAN ADMINISTRATOR-BC [address] [place] [address] documented as of this encounter Visit Diagnoses Diagnosis Abnormal coagulation profile documented in this encounter
--- OUTSIDE RECORDS SUMMARY | 2024-04-23 21:39 | XMS_ITS | Encounter Summary ---
Author Organization [facility] Address [address] [place] [address]. [place] [address] [place] [address] Care Team Providers Care Occupational Rehabilitation Aide Name Role Phone Unavailable Primary Care Provider Unavailabl e Encounter Details Date Type Department Care Team (Late Contact Info) Description 07/01/2002 Abstract [facility] [address] [place] [address] , Generic Conversion, Social History Tobacco Use Types Packs/Day Years Used Date Smoking Tobacco: Never Assessed Comments Unknown Sex and Gender Information Value Date Recorded Sex Assigned at Female 08/07/2022 4:17 PM CDT Legal Sex Female 8:54 PM CDT Gender Identity Female 08/07/2022 4:17 PM CDT Sexual Orientation Straight 02/26/2023 1: 40 PM CHANNEL SPECIALIST documented as of this encounter Plan of Treatment Upcoming Encounters Date Type Department Care Team (Late Contact Info) Description 04/29/2024 1:45 PM CHANNEL SPECIALIST Office Visit [facility] [place] [id number] [facility] 1 [place] [address] Sujatha Solis, GROUP MANAGER-BC [address] [place] [address] documented as of this encounter Visit Diagnoses Not on filedocumented in this encounter
--- OUTSIDE RECORDS SUMMARY | 2024-04-23 21:39 | XMS_ITS | Encounter Summary ---
Author Organization [facility] Address [address] [place] [address]. [place] [address] [place] [address] Care Team Providers Care Mold Swabber Name Role Phone Unavailable Primary Care Provider Unavailabl e Encounter Details Date Type Department Care Team (Late Contact Info) Description 10/27/2003 Abstract [facility] [address] [place] [address] , Generic Conversion, Social History Tobacco Use Types Packs/Day Years Used Date Smoking Tobacco: Never Assessed Comments Unknown Sex and Gender Information Value Date Recorded Sex Assigned at Female 08/07/2022 4:17 PM CDT Legal Sex Female 8:54 PM CDT Gender Identity Female 08/07/2022 4:17 PM CDT Sexual Orientation Straight 02/26/2023 1: 40 PM RENEWABLE ENERGY CONSULTANT documented as of this encounter Plan of Treatment Upcoming Encounters Date Type Department Care Team (Late Contact Info) Description 04/29/2024 1:45 PM RENEWABLE ENERGY CONSULTANT Office Visit [facility] [address] 1 [place] [address] Sujatha Solis, CITY DRIVER-BC [address] [place] [address] documented as of this encounter Visit Diagnoses Not on filedocumented in this encounter
--- OUTSIDE RECORDS SUMMARY | 2024-04-23 21:39 | XMS_ITS | Encounter Summary ---
Author Organization [facility] Address [address] [place] [address]. [place] [address] [place] [address] Care Team Providers Care Geotechnical Field Technician Name Role Phone Unavailable Primary Care Provider Unavailabl e Encounter Details Date Type Department Care Team (Late Contact Info) Description 03/03/2008 Abstract [facility] [address] [place] [address] , Emma Foy MD Social History Tobacco Use Types Packs/Day Years Used Date Smoking Tobacco: Never Assessed Comments Unknown Sex and Gender Information Value Date Recorded Sex Assigned at Female 08/07/2022 4:17 PM CDT Legal Sex Female 8:54 PM CDT Gender Identity Female 08/07/2022 4:17 PM CDT Sexual Orientation Straight 02/26/2023 1: 40 PM SLITTER AND REWINDER documented as of this encounter Plan of Treatment Upcoming Encounters Date Type Department Care Team (Late Contact Info) Description 04/29/2024 1:45 PM SLITTER AND REWINDER Office Visit [facility] [address] [place] [address] 1 [place] [address] Sujatha Solis, GEOLOGICAL AIDE-BC [address] [place] [address] documented as of this encounter Visit Diagnoses Not on filedocumented in this encounter
--- OUTSIDE RECORDS SUMMARY | 2024-04-23 21:39 | XMS_ITS | Encounter Summary ---
Author Organization [facility] Address [address] [place] [address]. [place] [address] [place] [address] Care Team Providers Care Registered Nurse Behavioral Health Name Role Phone Unavailable Primary Care Provider Unavailabl e Encounter Details Date Type Department Care Team (Late st Contact Info) Description 08/29/2007 Abstract [facility] [address] [place] [address] Social History Tobacco Use Types Packs/Day Years Used Date Smoking Tobacco: Never Assessed Comments Unknown Sex and Gender Information Value Date Recorded Sex Assigned at Female 08/07/2022 4:17 PM CDT Legal Sex Female 8:54 PM CDT Gender Identity Female 08/07/2022 4:17 PM CDT Sexual Orientation Straight 02/26/2023 1: 40 PM PIPE FOREMAN documented as of this encounter Plan of Treatment Upcoming Encounters Date Type Department Care Team (Late Contact Info) Description 04/29/2024 1:45 PM PIPE FOREMAN Office Visit [facility] [address] [place] [address] Sujatha Solis, [facility]- [address] [place] [address] documented as of this encounter Visit Diagnoses Not on filedocumented in this encounter
--- OUTSIDE RECORDS SUMMARY | 2024-04-23 21:39 | XMS_ITS | Encounter Summary ---
Author Organization [facility] Address [address] [place] [address]. [place] [address] [place] [address] Care Team Providers Care Industrial Education Teacher Name Role Phone Unavailable Primary Care Provider Unavailabl e Encounter Details Date Type Department Care Team (Late st Contact Info) Description 07/11/1997 Abstract [facility] [address] [place] [address] , Generic Conversion, Social History Tobacco Use Types Packs/Day Years Used Date Smoking Tobacco: Never Assessed Comments Unknown Sex and Gender Information Value Date Recorded Sex Assigned at Female 08/07/2022 4:17 PM CDT Legal Sex Female 8:54 PM CDT Gender Identity Female 08/07/2022 4:17 PM CDT Sexual Orientation Straight 02/26/2023 1: 40 PM HARM REDUCTION WORKER documented as of this encounter Plan of Treatment Upcoming Encounters Date Type Department Care Team (Late Contact Info) Description 04/29/2024 1:45 PM HARM REDUCTION WORKER Office Visit [facility] [address] 1 [place] [address] Sujatha Solis, CYTOGENETIC TECHNICIAN-BC [address] [place] [address] documented as of this encounter Visit Diagnoses Not on filedocumented in this encounter
--- OUTSIDE RECORDS SUMMARY | 2024-04-23 21:39 | XMS_ITS | Encounter Summary ---
Author Organization [facility] Address [address] [place] [address]. [place] [address] [place] [address] Care Team Providers Care Channel Sales Manager Name Role Phone Unavailable Primary Care Provider Unavailabl e Encounter Details Date Type Department Care Team (Late Contact Info) Description 11/27/1997 Abstract [facility] [address] [place] [address] , Generic Conversion, Social History Tobacco Use Types Packs/Day Years Used Date Smoking Tobacco: Never Assessed Comments Unknown Sex and Gender Information Value Date Recorded Sex Assigned at Female 08/07/2022 4:17 PM CDT Legal Sex Female 8:54 PM CDT Gender Identity Female 08/07/2022 4:17 PM CDT Sexual Orientation Straight 02/26/2023 1: 40 PM SOFTWARE ENGINEER WEB APPLICATIONS documented as of this encounter Plan of Treatment Upcoming Encounters Date Type Department Care Team (Late Contact Info) Description 04/29/2024 1:45 PM SOFTWARE ENGINEER WEB APPLICATIONS Office Visit [facility] [place] [id number] [facility] 1 [place] [address] Sujatha Solis, PROGRAM SUPPORT SPECIALIST-BC [address] [place] [address] documented as of this encounter Visit Diagnoses Not on filedocumented in this encounter
--- OUTSIDE RECORDS SUMMARY | 2024-04-23 21:39 | XMS_ITS | Encounter Summary ---
Author Organization [facility] Address [address] [place] [address]. [place] [address] [place] [address] Care Team Providers Care Hybrid Technologist Name Role Phone Unavailable Primary Care Provider Unavailabl e Encounter Details Date Type Department Care Team (Late st Contact Info) Description 10/03/2005 Abstract [facility] [address] [place] [address] Social History Tobacco Use Types Packs/Day Years Used Date Smoking Tobacco: Never Assessed Comments Unknown Sex and Gender Information Value Date Recorded Sex Assigned at Female 08/07/2022 4:17 PM CDT Legal Sex Female 8:54 PM CDT Gender Identity Female 08/07/2022 4:17 PM CDT Sexual Orientation Straight 02/26/2023 1: 40 PM HOME COMPANION documented as of this encounter Plan of Treatment Upcoming Encounters Date Type Department Care Team (Late Contact Info) Description 04/29/2024 1:45 PM HOME COMPANION Office Visit [facility] [address] [address] Sujatha Solis, POWER SYSTEMS ENGINEER- [address] [place] [address] documented as of this encounter Visit Diagnoses Not on filedocumented in this encounter
--- OUTSIDE RECORDS SUMMARY | 2024-04-23 21:39 | XMS_ITS | Encounter Summary ---
Author Organization [facility] Address [address] [place] [address]. [place] [address] [place] [address] Care Team Providers Care Data Sme Name Role Phone Unavailable Primary Care Provider Unavailabl e Encounter Details Date Type Department Care Team (Late Contact Info) Description 01/28/2004 Abstract [facility] [address] [place] [address] Oj Perkins MD [address] [place] [address] Social History Tobacco Use Types Packs/Day Years Used Date Smoking Tobacco: Never Assessed Comments Unknown Sex and Gender Information Value Date Recorded Sex Assigned at Female 08/07/2022 4:17 PM CDT Legal Sex Female 8:54 PM CDT Gender Identity Female 08/07/2022 4:17 PM CDT Sexual Orientation Straight 02/26/2023 1: 40 PM LOADER UNLOADER documented as of this encounter Plan of Treatment Upcoming Encounters Date Type Department Care Team (Late Contact Info) Description 04/29/2024 1:45 PM LOADER UNLOADER Office Visit [facility] 1 [place] [address] Sujatha Solis, BIOLOGICS SPECIALIST- [address] [place] [address] documented as of this encounter Visit Diagnoses Not on filedocumented in this encounter
--- OUTSIDE RECORDS SUMMARY | 2024-04-23 21:39 | XMS_ITS | Encounter Summary ---
Author Organization [facility] Address [address] [place] [address]. [place] [address] [place] [address] Care Team Providers Care Rolloff Truck Driver Name Role Phone Unavailable Primary Care Provider Unavailabl e Encounter Details Date Type Department Care Team (Late st Contact Info) Description 07/22/2003 Abstract [facility] [address] [place] [address] Marcela Diop MD Social History Tobacco Use Types Packs/Day Years Used Date Smoking Tobacco: Never Assessed Comments Unknown Sex and Gender Information Value Date Recorded Sex Assigned at Female 08/07/2022 4:17 PM CDT Legal Sex Female 8:54 PM CDT Gender Identity Female 08/07/2022 4:17 PM CDT Sexual Orientation Straight 02/26/2023 1: 40 PM DISC SANDER documented as of this encounter Plan of Treatment Upcoming Encounters Date Type Department Care Team (Late Contact Info) Description 04/29/2024 1:45 PM DISC SANDER Office Visit [facility] [address] 1 [place] [address] Sujatha Solis, A R SPECIALIST-BC [address] [place] [address] documented as of this encounter Visit Diagnoses Not on filedocumented in this encounter
--- OUTSIDE RECORDS SUMMARY | 2024-04-23 21:39 | XMS_ITS | Encounter Summary ---
Author Organization [facility] Address [address] [place] [address]. [place] [address] [place] [address] Care Team Providers Care Bridge Engineer Name Role Phone Unavailable Primary Care Provider Unavailabl e Encounter Details Date Type Department Care Team (Late st Contact Info) Description 01/13/2004 Abstract [facility] [address] [place] [address] Oj Perkins MD [address] [place] [address] Social History Tobacco Use Types Packs/Day Years [...] st Contact Info) Description 04/29/2024 1:45 PM CHANNEL SPECIALIST Office Visit [facility] [address] 1 [place] [address] Sujatha Solis, PIGGERY WORKER- [address] [place] [address] documented as of this encounter Visit Diagnoses Not on filedocumented in this encounter
--- OUTSIDE RECORDS SUMMARY | 2024-04-23 21:39 | XMS_ITS | Encounter Summary ---
Author Organization [facility] Address [address] [place] [address]. [place] [address] [place] [address] Care Team Providers Care Fibrous Plasterer Name Role Phone Unavailable Primary Care Provider Unavailabl e Encounter Details Date Type Department Care Team (Late Contact Info) Description 08/15/1994 Abstract [facility] [address] [place] [address] , Generic Conversion, Social History Tobacco Use Types Packs/Day Years Used Date Smoking Tobacco: Never Assessed Comments Unknown Sex and Gender Information Value Date Recorded Sex Assigned at Female 08/07/2022 4:17 PM CDT Legal Sex Female 8:54 PM CDT Gender Identity Female 08/07/2022 4:17 PM CDT Sexual Orientation Straight 02/26/2023 1: 40 PM SERVICE PLANNER documented as of this encounter Plan of Treatment Upcoming Encounters Date Type Department Care Team (Late Contact Info) Description 04/29/2024 1:45 PM SERVICE PLANNER Office Visit [facility] [place] [address] [facility] 1 [place] [address] Sujatha Solis, COBOL ENGINEER-BC [address] [place] [address] documented as of this encounter Visit Diagnoses Not on filedocumented in this encounter
--- OUTSIDE RECORDS SUMMARY | 2024-04-23 21:39 | XMS_ITS | Encounter Summary ---
Author Organization [facility] Address [address] [place] [address]. [place] [address] [place] [address] Care Team Providers Care Finisher Hand Name Role Phone Unavailable Primary Care Provider Unavailabl e Encounter Details Date Type Department Care Team (Latest Contact Info) Description 03/03/2008 Abstract [facility] Social History Tobacco Use Types Packs/Day Years Used Date Smoking Tobacco: Never Assessed Comments Unknown Sex and Gender Information Value Date Recorded Sex Assigned at Female 08/07/2022 4:17 PM CDT Legal Sex Female 8:54 PM CDT Gender Identity Female 08/07/2022 4:17 PM CDT Sexual Orientation Straight 02/26/2023 1: 40 PM CUTTER OUT documented as of this encounter Plan of Treatment Upcoming Encounters Date Type Department Care Team (Late st Contact Info) Description 04/29/2024 1:45 PM CUTTER OUT Office Visit [facility] [place] [address] Sujatha Solis, TOBACCO PREVENTION HEALTH EDUCATOR- [address] [place] [address] documented as of this encounter Visit Diagnoses Not on filedocumented in this encounter
--- OUTSIDE RECORDS SUMMARY | 2024-04-23 21:39 | XMS_ITS | Encounter Summary ---
Author Organization [facility] Address [address] [place] [address]. [place] [address] [place] [address] Care Team Providers Care Snack Bar Cashier Name Role Phone Unavailable Primary Care Provider Unavailabl e Encounter Details Date Type Department Care Team (Late st Contact Info) Description 08/02/2004 Emergency [facility] [address] [place] [address] , Emma Foy MD Social History Tobacco Use Types Packs/Day Years Used Date Smoking Tobacco: Never Assessed Comments Unknown Sex and Gender Information Value Date Recorded Sex Assigned at Female 08/07/2022 4:17 PM CDT Legal Sex Female 8:54 PM CDT Gender Identity Female 08/07/2022 4:17 PM CDT Sexual Orientation Straight 02/26/2023 1: 40 PM SOCIAL PROFESSIONALS documented as of this encounter Plan of Treatment Upcoming Encounters Date Type Department Care Team (Late st Contact Info) Description 04/29/2024 1:45 PM SOCIAL PROFESSIONALS Office Visit [facility] [address] [address] Sujatha Solis, MANAGER BEAUTY- [address] [place] [address] documented as of this encounter Visit Diagnoses Not on filedocumented in this encounter
--- OUTSIDE RECORDS SUMMARY | 2024-04-23 21:39 | XMS_ITS | Encounter Summary ---
Author Organization [facility] Address [address] [place] [address]. [place] [address] [place] [address] Care Team Providers Care Port Steward Name Role Phone Unavailable Primary Care Provider Unavailabl e Encounter Details Date Type Department Care Team (Late Contact Info) Description 09/20/1994 Abstract [facility] [address] [place] [address] , Generic Conversion, Social History Tobacco Use Types Packs/Day Years Used Date Smoking Tobacco: Never Assessed Comments Unknown Sex and Gender Information Value Date Recorded Sex Assigned at Female 08/07/2022 4:17 PM CDT Legal Sex Female 8:54 PM CDT Gender Identity Female 08/07/2022 4:17 PM CDT Sexual Orientation Straight 02/26/2023 1: 40 PM EAR NOSE THROAT PHYSICIAN documented as of this encounter Plan of Treatment Upcoming Encounters Date Type Department Care Team (Late Contact Info) Description 04/29/2024 1:45 PM EAR NOSE THROAT PHYSICIAN Office Visit [facility] [address] 1 [place] [address] Sujatha Solis, ART HISTORY INSTRUCTOR-BC [address] [place] [address] documented as of this encounter Visit Diagnoses Not on filedocumented in this encounter
--- OUTSIDE RECORDS SUMMARY | 2024-04-23 21:39 | XMS_ITS | Encounter Summary ---
Author Organization [facility] Address [address] [place] [address]. [place] [address] [place] [address] Care Team Providers Care Medical Care Manager Name Role Phone Unavailable Primary Care Provider Unavailabl e Encounter Details Date Type Department Care Team (Latest Contact Info) Description 03/30/2008 Abstract [facility] Medical Group Social History Tobacco Use Types Packs/Day Years Used Date Smoking Tobacco: Never Assessed Comments Unknown Sex and Gender Information Value Date Recorded Sex Assigned at Female 08/07/2022 4:17 PM CDT Legal Sex Female 8:54 PM CDT Gender Identity Female 08/07/2022 4:17 PM CDT Sexual Orientation Straight 02/26/2023 1: 40 PM FOLDER INSPECTOR documented as of this encounter Plan of Treatment Upcoming Encounters Date Type Department Care Team (Late st Contact Info) Description 04/29/2024 1:45 PM FOLDER INSPECTOR [place] [address] Sujatha Solis, MINIATURE SET CONSTRUCTOR- [address] [facility] [place] [address] documented as of this encounter Visit Diagnoses Not on filedocumented in this encounter
--- OUTSIDE RECORDS SUMMARY | 2024-04-23 21:39 | XMS_ITS | Encounter Summary ---
Author Organization [facility] Address [address] [place] [address]. [place] [address] [place] [address] Care Team Providers Care Buyer Tobacco Head Name Role Phone Unavailable Primary Care Provider Unavailabl e Encounter Details Date Type Department Care Team (Late Contact Info) Description 08/14/1997 Abstract [facility] [address] [place] [address] , Generic Conversion, Social History Tobacco Use Types Packs/Day Years Used Date Smoking Tobacco: Never Assessed Comments Unknown Sex and Gender Information Value Date Recorded Sex Assigned at Female 08/07/2022 4:17 PM CDT Legal Sex Female 8:54 PM CDT Gender Identity Female 08/07/2022 4:17 PM CDT Sexual Orientation Straight 02/26/2023 1: 40 PM CUSTOMER ACCOUNT MANAGER documented as of this encounter Plan of Treatment Upcoming Encounters Date Type Department Care Team (Late Contact Info) Description 04/29/2024 1:45 PM CUSTOMER ACCOUNT MANAGER Office Visit [facility] [place] [address] [facility] 1 [place] [address] Sujatha Solis, TURN MACHINE OPERATOR-BC [address] [place] [address] documented as of this encounter Visit Diagnoses Not on filedocumented in this encounter
--- OUTSIDE RECORDS SUMMARY | 2024-04-23 21:39 | XMS_ITS | Encounter Summary ---
Author Organization [facility] Address [address] [place] [address]. [place] [address] [place] [address] Care Team Providers Care Cloth Beamer Name Role Phone Unavailable Primary Care Provider Unavailabl e Encounter Details Date Type Department Care Team (Late st Contact Info) Description 07/07/1997 Abstract [facility] [address] [place] [address] , Generic Conversion, Social History Tobacco Use Types Packs/Day Years Used Date Smoking Tobacco: Never Assessed Comments Unknown Sex and Gender Information Value Date Recorded Sex Assigned at Female 08/07/2022 4:17 PM CDT Legal Sex Female 8:54 PM CDT Gender Identity Female 08/07/2022 4:17 PM CDT Sexual Orientation Straight 02/26/2023 1: 40 PM CORPORATE FITNESS PROGRAM COORDINATOR documented as of this encounter Plan of Treatment Upcoming Encounters Date Type Department Care Team (Late Contact Info) Description 04/29/2024 1:45 PM CORPORATE FITNESS PROGRAM COORDINATOR Office Visit [facility] [address] 1 [place] [address] Sujatha Solis, EARRING MAKER-BC [address] [place] [address] documented as of this encounter Visit Diagnoses Not on filedocumented in this encounter
--- OUTSIDE RECORDS SUMMARY | 2024-04-23 21:39 | XMS_ITS | Encounter Summary ---
Author Organization [facility] Address [address] [place] [address]. [place] [address] [place] [address] Care Team Providers Care Safety Clothing And Equipment Developer Name Role Phone Unavailable Primary Care Provider Unavailabl e Encounter Details Date Type Department Care Team (Late Contact Info) Description 06/26/2003 Abstract [facility] [address] [place] [address] , Generic Conversion, Social History Tobacco Use Types Packs/Day Years Used Date Smoking Tobacco: Never Assessed Comments Unknown Sex and Gender Information Value Date Recorded Sex Assigned at Female 08/07/2022 4:17 PM CDT Legal Sex Female 8:54 PM CDT Gender Identity Female 08/07/2022 4:17 PM CDT Sexual Orientation Straight 02/26/2023 1: 40 PM MANAGER OF SOFTWARE DEVELOPMENT documented as of this encounter Plan of Treatment Upcoming Encounters Date Type Department Care Team (Late Contact Info) Description 04/29/2024 1:45 PM MANAGER OF SOFTWARE DEVELOPMENT Office Visit [facility] [address] 1 [place] [address] Sujatha Solis, MOBILITY SCOOTER REPAIRER-BC [address] [place] [address] documented as of this encounter Visit Diagnoses Not on filedocumented in this encounter
--- OUTSIDE RECORDS SUMMARY | 2024-04-23 21:39 | XMS_ITS | Encounter Summary ---
Author Organization [facility] Address [address] [place] [address]. [place] [address] [place] [address] Care Team Providers Care Glass Technologist Name Role Phone Unavailable Primary Care Provider Unavailabl e Encounter Details Date Type Department Care Team (Late st Contact Info) Description 05/01/[address] [facility] [address] [place] [address] Social History Tobacco Use Types Packs/Day Years Used Date Smoking Tobacco: Never Assessed Comments Unknown Sex and Gender Information Value Date Recorded Sex Assigned at Female 08/07/2022 4:17 PM CDT Legal Sex Female 8:54 PM CDT Gender Identity Female 08/07/2022 4:17 PM CDT Sexual Orientation Straight 02/26/2023 1: 40 PM TURNER AND FORMER AUTOMATIC documented as of this encounter Plan of Treatment Upcoming Encounters Date Type Department Care Team (Late Contact Info) Description 04/29/2024 1:45 PM TURNER AND FORMER AUTOMATIC Office Visit [facility] [place] [address] [address] Sujatha Solis, FRAUD EXAMINER- [address] [facility] [place] [address] documented as of this encounter Visit Diagnoses Diagnosis Other specified arthropathy involving hand documented in this encounter
--- OUTSIDE RECORDS SUMMARY | 2024-04-23 21:39 | XMS_ITS | Encounter Summary ---
Author Organization [facility] Address [address] [place] [address]. [place] [address] [place] [address] Care Team Providers Care Marine Tower Operator Name Role Phone Unavailable Primary Care Provider Unavailabl e Encounter Details Date Type Department Care Team (Late Contact Info) Description 09/25/1997 Abstract [facility] [address] [place] [address] , Generic Conversion, Social History Tobacco Use Types Packs/Day Years Used Date Smoking Tobacco: Never Assessed Comments Unknown Sex and Gender Information Value Date Recorded Sex Assigned at Female 08/07/2022 4:17 PM CDT Legal Sex Female 8:54 PM CDT Gender Identity Female 08/07/2022 4:17 PM CDT Sexual Orientation Straight 02/26/2023 1: 40 PM LEASING ASSOCIATE documented as of this encounter Plan of Treatment Upcoming Encounters Date Type Department Care Team (Late Contact Info) Description 04/29/2024 1:45 PM LEASING ASSOCIATE Office Visit [facility] [place] [address] [facility] 1 [place] [address] Sujatha Solis, BINDER AND BOX BUILDER-BC [address] [place] [address] documented as of this encounter Visit Diagnoses Not on filedocumented in this encounter
--- OUTSIDE RECORDS SUMMARY | 2024-04-23 21:39 | XMS_ITS | Encounter Summary ---
Author Organization [facility] Address [address] [place] [address]. [place] [address] [place] [address] Care Team Providers Care Destination Imagination Coordinator Name Role Phone Unavailable Primary Care Provider Unavailabl e Encounter Details Date Type Department Care Team (Late Contact Info) Description 07/28/2003 Abstract [facility] [address] [place] [address] , Generic Conversion, Social History Tobacco Use Types Packs/Day Years Used Date Smoking Tobacco: Never Assessed Comments Unknown Sex and Gender Information Value Date Recorded Sex Assigned at Female 08/07/2022 4:17 PM CDT Legal Sex Female 8:54 PM CDT Gender Identity Female 08/07/2022 4:17 PM CDT Sexual Orientation Straight 02/26/2023 1: 40 PM PHOTOGRAPHER APPRENTICE LITHOGRAPHIC documented as of this encounter Plan of Treatment Upcoming Encounters Date Type Department Care Team (Late Contact Info) Description 04/29/2024 1:45 PM PHOTOGRAPHER APPRENTICE LITHOGRAPHIC Office Visit [facility] [address] 1 [place] [address] Sujatha Solis, HOME HEALTH SPECIALIST-BC [address] [place] [address] documented as of this encounter Visit Diagnoses Not on filedocumented in this encounter
--- OUTSIDE RECORDS SUMMARY | 2024-04-23 21:39 | XMS_ITS | Encounter Summary ---
Author Organization [facility] Address [address] [place] [address]. [place] [address] [place] [address] Care Team Providers Care Production Officer Name Role Phone Unavailable Primary Care Provider Unavailabl e Encounter Details Date Type Department Care Team (Late Contact Info) Description 08/25/2004 Abstract [facility] [address] [facility] [place] [address] Roldan Domingo MD [address] [place] [id number] Social History Tobacco Use Types Packs/Day Years Used Date Smoking Tobacco: Never Assessed Comments Unknown Sex and Gender Information Value Date Recorded Sex Assigned at Female 08/07/2022 4:17 PM CDT Legal Sex Female 8:54 PM CDT Gender Identity Female 08/07/2022 4:17 PM CDT Sexual Orientation Straight 02/26/2023 1: 40 PM CONDITIONING COACH documented as of this encounter Plan of Treatment Upcoming Encounters Date Type Department Care Team (Late Contact Info) Description 04/29/2024 1:45 PM CONDITIONING COACH Office Visit [facility] 5 [facility] 1 [place] [address] Sujatha Solis, [facility]- [address] [facility] [place] [address] documented as of this encounter Visit Diagnoses Not on filedocumented in this encounter
--- OUTSIDE RECORDS SUMMARY | 2024-04-23 21:39 | XMS_ITS | Encounter Summary ---
Author Organization [facility] Address [address] [place] [address]. [place] [address] [place] [address] Care Team Providers Care Power Checker Name Role Phone Unavailable Primary Care Provider Unavailabl e Encounter Details Date Type Department Care Team (Late Contact Info) Description 10/29/2006 Abstract [facility] [address] [place] [address] Jignesh Caba MD [address] [place] [address] Social History Tobacco Use Types Packs/Day Years Used Date Smoking Tobacco: Never Assessed Comments Unknown Sex and Gender Information Value Date Recorded Sex Assigned at Female 08/07/2022 4:17 PM CDT Legal Sex Female 8:54 PM CDT Gender Identity Female 08/07/2022 4:17 PM CDT Sexual Orientation Straight 02/26/2023 1: 40 PM TELESALES CONSULTANT documented as of this encounter Plan of Treatment Upcoming Encounters Date Type Department Care Team (Late Contact Info) Description 04/29/2024 1:45 PM TELESALES CONSULTANT Office Visit [facility] 5 [facility] 1 [place] [address] Sujatha Solis, [facility]- [address] [place] [address] documented as of this encounter Visit Diagnoses Not on filedocumented in this encounter
--- OUTSIDE RECORDS SUMMARY | 2024-04-23 21:39 | XMS_ITS | Encounter Summary ---
Author Organization [facility] Address [address] [place] [address]. [place] [address] [place] [address] Care Team Providers Care In Store Representative Name Role Phone Unavailable Primary Care Provider Unavailabl e Encounter Details Date Type Department Care Team (Late Contact Info) Description 05/18/2001 Abstract [facility] [address] [place] [address] , Generic Conversion, Social History Tobacco Use Types Packs/Day Years Used Date Smoking Tobacco: Never Assessed Comments Unknown Sex and Gender Information Value Date Recorded Sex Assigned at Female 08/07/2022 4:17 PM CDT Legal Sex Female 8:54 PM CDT Gender Identity Female 08/07/2022 4:17 PM CDT Sexual Orientation Straight 02/26/2023 1: 40 PM SKIRT CLIPPER documented as of this encounter Plan of Treatment Upcoming Encounters Date Type Department Care Team (Late Contact Info) Description 04/29/2024 1:45 PM SKIRT CLIPPER Office Visit [facility] [place] [address] [facility] 1 [place] [address] Sujatha Solis, LIFTER DRIVER-BC [address] [place] [address] documented as of this encounter Visit Diagnoses Not on filedocumented in this encounter
--- OUTSIDE RECORDS SUMMARY | 2024-04-23 21:39 | XMS_ITS | Encounter Summary ---
Author Organization [facility] Address [address] [place] [address]. [place] [address] [place] [address] Care Team Providers Care Recycling Director Name Role Phone Unavailable Primary Care Provider Unavailabl e Encounter Details Date Type Department Care Team (Late st Contact Info) Description 01/18/2004 Abstract [facility] [address] [place] [address] Oj Perkins MD [address] [place] [address] Social History Tobacco Use Types Packs/Day Years Used Date Smoking Tobacco: Never Assessed Comments Unknown Sex and Gender Information Value Date Recorded Sex Assigned at Female 08/07/2022 4:17 PM CDT Legal Sex Female 8:54 PM CDT Gender Identity Female 08/07/2022 4:17 PM CDT Sexual Orientation Straight 02/26/2023 1: 40 PM PILLOWCASE CUTTER documented as of this encounter Plan of Treatment Upcoming Encounters Date Type Department Care Team (Late st Contact Info) Description 04/29/2024 1:45 PM PILLOWCASE CUTTER Office Visit [facility] [address] 1 [place] [address] Sujatha Solis, PERCH MENDER- [address] [place] [address] documented as of this encounter Visit Diagnoses Not on filedocumented in this encounter
--- OUTSIDE RECORDS SUMMARY | 2024-04-23 21:39 | XMS_ITS | Encounter Summary ---
Author Organization [facility] Address [address] [place] [address]. [place] [address] [place] [address] Care Team Providers Care Biology Tutor Name Role Phone Unavailable Primary Care Provider Unavailabl e Encounter Details Date Type Department Care Team (Late Contact Info) Description 05/08/2001 Abstract [facility] CON[facility] [address] [place] [address] , Generic Conversion, Social History Tobacco Use Types Packs/Day Years Used Date Smoking Tobacco: Never Assessed Comments Unknown Sex and Gender Information Value Date Recorded Sex Assigned at Female 08/07/2022 4:17 PM CDT Legal Sex Female 8:54 PM CDT Gender Identity Female 08/07/2022 4:17 PM CDT Sexual Orientation Straight 02/26/2023 1: 40 PM CHILDREN LIBRARIAN documented as of this encounter Plan of Treatment Upcoming Encounters Date Type Department Care Team (Late Contact Info) Description 04/29/2024 1:45 PM CHILDREN LIBRARIAN Office Visit [facility] [place] [address] [facility] 1 [place] [address] Sujatha Solis, ADMINISTRATIVE SUPPORT MANAGER-BC [address] [place] [address] documented as of this encounter Visit Diagnoses Not on filedocumented in this encounter
--- OUTSIDE RECORDS SUMMARY | 2024-04-23 21:39 | XMS_ITS | Encounter Summary ---
Author Organization [facility] Address [address] [place] [address]. [place] [address] [place] [address] Care Team Providers Care Control Chemist Name Role Phone Unavailable Primary Care Provider Unavailabl e Encounter Details Date Type Department Care Team (Late st Contact Info) Description 04/12/2004 Abstract [facility] [address] [place] [address] Edinson Isabel MD [address] [place] [address] Social History Tobacco Use Types Packs/Day Years Used Date Smoking Tobacco: Never Assessed Comments Unknown Sex and Gender Information Value Date Recorded Sex Assigned at Female 08/07/2022 4:17 PM CDT Legal Sex Female 8:54 PM CDT Gender Identity Female 08/07/2022 4:17 PM CDT Sexual Orientation Straight 02/26/2023 1: 40 PM DIGITAL DESIGNER documented as of this encounter Plan of Treatment Upcoming Encounters Date Type Department Care Team (Late st Contact Info) Description 04/29/2024 1:45 PM DIGITAL DESIGNER Office Visit [facility] 5 [facility] 1 [place] [address] Sujatha Solis, [facility]- [address] [place] [address] documented as of this encounter Visit Diagnoses Not on filedocumented in this encounter
--- OUTSIDE RECORDS SUMMARY | 2024-04-23 21:39 | XMS_ITS | Encounter Summary ---
Author Organization [facility] Address [address] [place] [address]. [place] [address] [place] [address] Care Team Providers Care Lpn Medical Assistant Name Role Phone Unavailable Primary Care Provider Unavailabl e Encounter Details Date Type Department Care Team (Late Contact Info) Description 11/26/1995 Abstract [facility] CONVERSION [address] [place] [address] , Generic Conversion, Social History Tobacco Use Types Packs/Day Years Used Date Smoking Tobacco: Never Assessed Comments Unknown Sex and Gender Information Value Date Recorded Sex Assigned at Female 08/07/2022 4:17 PM CDT Legal Sex Female 8:54 PM CDT Gender Identity Female 08/07/2022 4:17 PM CDT Sexual Orientation Straight 02/26/2023 1: 40 PM DIRECTOR QUALITY SYSTEMS documented as of this encounter Plan of Treatment Upcoming Encounters Date Type Department Care Team (Late Contact Info) Description 04/29/2024 1:45 PM DIRECTOR QUALITY SYSTEMS Office Visit [facility] [place] [id number] [facility] 1 [place] [address] Sujatha Solis, CHIEF ULTRASOUND TECHNOLOGIST-BC [address] [place] [address] documented as of this encounter Visit Diagnoses Not on filedocumented in this encounter
--- OUTSIDE RECORDS SUMMARY | 2024-04-23 21:39 | XMS_ITS | Encounter Summary ---
Author Organization [facility] Address [address] [place] [address]. [place] [address] [place] [address] Care Team Providers Care Dining Service Inspector Name Role Phone Unavailable Primary Care Provider Unavailabl e Encounter Details Date Type Department Care Team (Late st Contact Info) Description 11/27/[address] [facility] [address] [place] [address] Froilan Manriquez MD [address] [place] [address] Social History Tobacco Use Types Packs/Day Years Used Date Smoking Tobacco: Never Assessed Comments Unknown Sex and Gender Information Value Date Recorded Sex Assigned at Female 08/07/2022 4:17 PM CDT Legal Sex Female 8:54 PM CDT Gender Identity Female 08/07/2022 4:17 PM CDT Sexual Orientation Straight 02/26/2023 1: 40 PM PITCH FLAKER documented as of this encounter Plan of Treatment Upcoming Encounters Date Type Department Care Team (Late st Contact Info) Description 04/29/2024 1:45 PM PITCH FLAKER Office Visit [facility] [address] [address] Sujatha Solis, [facility]- [address] [place] [address] [place] [address] documented as of this encounter Visit Diagnoses Diagnosis Ulceration of intestine documented in this encounter
--- OUTSIDE RECORDS SUMMARY | 2024-04-23 21:39 | XMS_ITS | Encounter Summary ---
Author Organization [facility] Address [address] [place] [address]. [place] [address] [place] [address] Care Team Providers Care Manual Writer Name Role Phone Unavailable Primary Care Provider Unavailabl e Encounter Details Date Type Department Care Team (Late Contact Info) Description 10/19/2003 Abstract [facility] CONVERSION [address] [place] [address] , Generic Conversion, Social History Tobacco Use Types Packs/Day Years Used Date Smoking Tobacco: Never Assessed Comments Unknown Sex and Gender Information Value Date Recorded Sex Assigned at Female 08/07/2022 4:17 PM CDT Legal Sex Female 8:54 PM CDT Gender Identity Female 08/07/2022 4:17 PM CDT Sexual Orientation Straight 02/26/2023 1: 40 PM RESTAURANT CREW MEMBER documented as of this encounter Plan of Treatment Upcoming Encounters Date Type Department Care Team (Late Contact Info) Description 04/29/2024 1:45 PM RESTAURANT CREW MEMBER Office Visit [facility] [place] [id number] [facility] 1 [place] [address] Sujatha Solis, SUMMER LAW ASSOCIATE-BC [address] [place] [address] documented as of this encounter Visit Diagnoses Not on filedocumented in this encounter
--- OUTSIDE RECORDS SUMMARY | 2024-04-23 21:46 | XMS_ITS | Clinical Summary ---
Author Organization [facility] Address [address] [place] [address] Phone Care Team Providers Care Paint Dipper Name Role Phone John Almazan MD Primary Care Provider [phone] Social History Tobacco Use Types Packs/Day Years Used Date Smoking Tobacco: Never Assessed Comments Unknown Sex and Gender Information Value Date Recorded Sex Assigned at Not on file Legal Sex Female 12:00 AM CDT Gender Identity Not on file Sexual Orientation Not on file Plan of Treatment Health Maintenance Due Date Last Done Comments DEXA Bone Density 1955 Hepatitis C Virus (HCV) Screening 1955 TdaP Immunization 1954 Colonoscopy 11/19/1999 Colorectal Cancer Screening 11/19/1999 Cologuard 2004 Immunochemical Fecal Occult Blood 2004 Mammogram 2004 Pneumococcal Immunization (50+ years) (1 of 1 - PCV) 2004 Zoster Immunization (2 of 3) 06/26/2016 05/01/2016 Influenza Immunization (#1) 12/16/202302/15, 04/18/2018, 01/17/2017, Additional history exists SARS-COV-2 Immunization ( season) 2023 07/28/2021, 03/03/2021, 06/09/2020, Additional history exists Respiratory Syncytial Virus (RSV) Immunization (Adult) (1 - 1-dose 75+ series) 2029 Hepatitis B Immunization Aged Out No longer eligible based on patient's age to complete this topic Meningococcal Immunization (ACWY) Aged Out No longer eligible based on patient's age to complete this topic Rotavirus Immunization Aged Out No lo nger eligible based on patient's age to complete this topic Insurance [employer] MEDICARE C HUMANA Care Teams Paint Dipper Relationship Specialty Start Date End Date John Almazan MD [address] [place] [address] PCP - General Family Medicine 04/30/19
--- OUTSIDE RECORDS SUMMARY | 2024-04-23 21:47 | XMS_ITS | Encounter Summary ---
Author Organization [facility] Care Team Providers Care Construction Engineer Name Role Phone John Almazan MD Primary Care Provider [phone] Encounter Details Date Type Department Care Team (Latest Contact Info) Description 04/30/2019 Travel Social History Tobacco Use Types Packs/Day Years Used Date Smoking Tobacco: Never Assessed Comments Unknown Sex and Gender Information Value Date Recorded Sex Assigned at Not on file Legal Sex Female 12:00 AM CDT Gender Identity Not on file Sexual Orientation Not on file documented as of this encounter Plan of Treatment Not on file documented as of this encounter Visit Diagnoses Not on filedocumented in this encounter Care Teams Construction Engineer Relationship Specialty Start Date End Date John Almazan MD [address] [place] [address] PCP - General Family Medicine 04/30/19 documented as of this encounter
--- OUTSIDE RECORDS SUMMARY | 2024-04-23 21:47 | XMS_ITS | Encounter Summary ---
Author Organization [facility] Address [address] [place] [address] Phone Care Team Providers Care Stringed Instrument Tuner Name Role Phone John Almazan MD Primary Care Provider [phone] Encounter Details Date Type Department Care Team (Latest Contact Info) Description 04/30/2019 Transcribe Orders [facility] 1 [place] [address] [place] [address] [place] [address] [address] Postmenopausal hormone therapy (Primary Dx); Hypouricemia; Malaise and fatigue; Hyperlipidemia, unspecified hyperlipidemia type; Vitamin D deficiency; Iatrogenic hyperinsulinism; Myxedema heart disease Social History Tobacco Use Types Packs/Day Years Used Date Smoking Tobacco: Never Assessed Comments Unknown Sex and Gender Information Value Date Recorded Sex Assigned at Not on file Legal Sex Female 12:00 AM CDT Gender Identity Not on file Sexual Orientation Not on file documented as of this encounter Plan of Treatment Not on file documented as of this encounter Results * (ABNORMAL) TRIIODOTHYRININE (T3) FREE (04/30/2019 9:12 AM TRAVEL RN) FREE T3 4.5(H) 1.7 - 3.7 pg/mL 04/30/2019 9:35 PM TRAVEL RN [facility] [facility] Blood specimen (specimen) Venipuncture / Unknown 04/30/2019 9:12 AM TRAVEL RN 04/30/2019 9:15 AM TRAVEL RN Rodney Hogan MD CHEMISTRY ORDERABLES Final Result Performing Organization Address City/[facility]/ZIP Co de Phone Number [facility] [address] [place] [address], [place] * INSULIN LEVEL (04/30/2019 9:12 AM TRAVEL RN) INSULIN 6.0 3.0 - 28.0 uU/mL 04/30/2019 11:22 PM TRAVEL RN [facility] Blood specimen (specimen) Venipuncture / Unknown 04/30/2019 9:12 AM TRAVEL RN 04/30/2019 9:15 AM TRAVEL RN Rodney oHgan MD CHEMISTRY ORDERABLES Final Result Performing Organization Address [facility] Co de Phone Number [facility] [address] [place] [address], [place] * (ABNORMAL) CMP (COMPREHENSIVE METABOLIC PANEL) (04/30/2019 9:12 AM TRAVEL RN) SODIUM 140 136 - 144 mmol/L 04/30/2019 10:00 AM [facility] POTASSIUM 4.2 3.5 - 5.1 mmol/L 04/30/2019 10:00 AM [facility] CHLORIDE 102 100 - 110 mmol/L 04/30/2019 10:00 AM [facility] CO2, VENOUS 26 22 - 32 mmol/L 04/30/2019 10:00 AM [facility] ANION GAP 16.2 8.0 - 20.0 mmol/L 04/30/2019 10:00 AM [facility] GLUCOSE 96 70 - 99 mg/dL 04/30/2019 10:00 AM [facility] BUN 12 8 - 23 mg/dL 04/30/2019 10:00 AM [facility] CREATININE, BLOOD 0.81 0.60 - 1.10 mg/dL 04/30/2019 10:00 AM [facility] BUN/CREATININE RATIO 15 12 - 20 ratio 04/30/2019 10:00 AM [facility] TOTAL PROTEIN 6.9 6.0 - 8.3 g/dL 04/30/2019 10:00 AM [facility] ALBUMIN 4.6 3.5 - 5.2 g/dL 04/30/2019 10:00 AM [facility] Comment: The colormetric methods used for the determination of Albumin may lead to falsely elevated test results in patients suffering from renal failure or insufficiency due to interference with other proteins. A/G RATIO 2.0 1.0 - 2.0 04/30/2019 10:00 AM [facility] CALCIUM 10.1 8.9 - 10.3 mg/dL 04/30/2019 10:00 AM [facility] T BILI 0.5 <=1.2 mg/dL 04/30/2019 10:00 AM [facility] SGOT (AST) 35(H) <=32 U/L 04/30/2019 10:00 AM [facility] SGPT (ALT) 28 <=33 U/L 04/30/2019 10:00 AM [facility] ALKALINE PHOSPHATASE 132(H) 35 - 105 U/L 04/30/2019 10:00 AM [facility] GFR, EST. NONAFRICAN >60 >=60 04/30/2019 10:00 AM [facility] GFR, EST. >60 >=60 020 10:00 AM [facility] Comment: Creatinine Clearance is the preferred criteria for selecting drug dose adjustments in renally impaired patients. ??The GFR is provided as additional pertinent clinical information. GFR is reported in mL/min/1.73 sq m. Blood specimen (specimen) Venipuncture / Unknown 04/30/2019 9:12 AM TRAVEL RN 04/30/2019 9:15 AM [facility] Rodney Hogan MD CHEMISTRY ORDERABLES Final Result [facility] #[address] [place] [address] documented in this encounter Visit Diagnoses Diagnosis Postmenopausal hormone therapy- Primary Need for prophylactic hormone replacement therapy (postmenopausal) Hypouricemia Other abnormal blood chemistry Malaise and fatigue Other malaise and fatigue Hyperlipidemia, unspecified hyperlipidemia type Vitamin D deficiency Unspecified vitamin D deficiency Iatrogenic hyperinsulinism Hypoglycemic coma Myxedema heart disease Unspecified hypothyroidism documented in this encounter Care Teams Stringed Instrument Tuner Relationship Specialty Start Date End Date John Almazan MD [address] [place] [address] PCP - General Family Medicine 04/30/19 documented as of this encounter
== END 2024-04-17 10:17 | disposition home or self-care (01) ==
PROVIDERS: PCP Family Medicine; Visit Provider Surgery
PROC: 0DJ08ZZ Inspection of Upper Intestinal Tract, Via Natural or Artificial Opening Endoscopic (ICD-10-PCS; CPT 43239; principal; 2024-04-17 10:00)
DX: K21.00 Gastro-esophageal reflux disease with esophagitis, without bleeding (principal); K22.89 Other specified disease of esophagus; I10 Essential (primary) hypertension; E03.9 Hypothyroidism, unspecified; E11.9 Type 2 diabetes mellitus without complications; R25.9 Unspecified abnormal involuntary movements; F41.9 Anxiety disorder, unspecified; F33.9 Major depressive disorder, recurrent, unspecified; M41.9 Scoliosis, unspecified; M54.42 Lumbago with sciatica, left side; M54.41 Lumbago with sciatica, right side; G89.4 Chronic pain syndrome; Z79.85 Long-term (current) use of injectable non-insulin antidiabetic drugs; Z79.84 Long term (current) use of oral hypoglycemic drugs; Z79.891 Long term (current) use of opiate analgesic; Z98.890 Other specified postprocedural states; Z98.1 Arthrodesis status; Z87.891 Personal history of nicotine dependence
CPT/HCPCS: 43239; 82948; 87081; 88305; J2704; J7120

== ENCOUNTER 2024-05-21 14:47 | Outpatient (CLI) | payer MEDICARE, MEDICAID, SELFPAY ==
--- NOTE | ~2024-05-21 | MM_ITS ---
EXAMINATION: MM screening uday BI w nikki HISTORY: Screening TECHNIQUE: Craniocaudal and mediolateral oblique 3-D tomosynthesis images were obtained and synthetic 2-D images were generated. CAD analysis was submitted and interpreted. COMPARISON: Comparison to multiple prior studies sequentially, with oldest reviewed study dated 01/14. BREAST PARENCHYMAL COMPOSITION: Not dense: There are scattered areas of fibroglandular density. FINDINGS: There is no evidence of suspicious mass, calcification, or architectural distortion to sugg est malignancy in either breast. There has been no suspicious interval change. IMPRESSION: 1. No mammographic evidence of malignancy. 2. Recommend routine screening mammography in one year. BI-RADS Category 1: Negative Reviewed, dictated and finalized at location B. RETARDER OPERATOR
--- OUTSIDE RECORDS SUMMARY | 2024-05-21 15:27 | XMS_ITS | Clinical Summary ---
Author Organization [facility] Address [address] [place] [address] Phone Care Team Providers Care Assembly Department Supervisor Name Role Phone John Almazan MD Primary Care Provider [phone] Social History Tobacco Use Types Packs/Day Years [...] Insurance [employer] MEDICARE C HUMANA Care Teams Assembly Department Supervisor Relationship Specialty Start Date End Date John Almazan MD [address] [place] [address] PCP - General Family Medicine 04/30/19
--- OUTSIDE RECORDS SUMMARY | 2024-05-21 15:27 | XMS_ITS | Encounter Summary ---
Author Organization [facility] Address [address] [place] [address] Care Team Providers Care Lead Man Over All Dies In Pattern Shop Name Role Phone Asif Coto DO Primary Care Provider [phone] Reason for Visit * Reason Onset Date Comments CT (SCAN) 05/21/2024 Encounter Details Date Type Department Care Team (Late st Contact Info) Description 05/21/2024 Telephone [facility] [address] [facility] [address] [place] [address] Sujatha Solis, [facility] [address] [facility] [place] [address] CT (SCAN) Social History Tobacco Use Types Packs/Day Years Used Date Smoking Tobacco: Former Cigarettes Smokeless Tobacco: Never Alcohol Use Standard Drinks/Week Comments Not Currently 0 (1 standard drink = 0.6 oz pur e alcohol) Occassionaly. [facility] Utilities Answer Date Recorded In the past 12 months has [facility] [employer], gas, oil, or water [employer] threatened to shut off services in your [...] declined 02/26/2023 How often do you attend shinto or jain serv ices? Patient declined 02/26/2023 Do you belong to any clubs o r organizations such as shinto groups, unions, fraternal or athletic groups, or [...] Recorded Patient Health Questionnaire-2 Score 0 02/26/2023 [facility] - Occupational [...] Sexual Orientation Straight 02/26/2023 1: 40 PM ADMISSION NURSE COORDINATOR documented as of this encounter Functional Status [...] Assessment Author Status No 06/21/2023 11:27 AM ADMISSION NURSE COORDINATOR Yanira Catsellanos RN Active documented as of this encounter Mental Status * Because of a physical, mental, or emotional condition, do you have serious difficulty concentrating, remembering, or making decisions? Answer Entry Date Author Status No 06/21/2023 11:27 AM ADMISSION NURSE COORDINATOR Yanira Castellanos RN Active documented in this encounter Progress Notes * KATIE Rees - 05/21/2024 9:41 AM CST Order is in chart. Upon review, it looks like the scheduling has attempted to reach out to patient to schedule. desktop engineer will contact and schedule patient. SSION NURSE COORDINATOR * KATIE Rees - 05/21/2024 9:41 AM CST ----- Message from Norma Severino sent at 05/21/2024 9:15 AM ADMISSION NURSE COORDINATOR ----- Regarding: CT Scan Patient called in and was asking if we had heard anything from her insurance on a CT scan of her wrist. I didn't see where there was CT scan ordered for her wrist. Patient would like someone to call her. SSION NURSE COORDINATOR documented in this encounter Plan of Treatment Upcoming Encounters Date Type Department Care Team (Late st Contact Info) Description 05/22/2024 2:30 PM ADMISSION NURSE COORDINATOR Appointment [facility] [address] [place] [address] Sujatha Solis, THORACIC SURGEON- [address] [place] [address] documented as of this encounter Visit Diagnoses Not on filedocumented in this encounter Care Teams Lead Man Over All Dies In Pattern Shop Relationship Specialty Start Date End Date Asif Coto DO [address] [place] [address] PCP - General FAMILY PRACTICE 09/29/21 documented as of this encounter
--- OUTSIDE RECORDS SUMMARY | 2024-05-21 15:27 | XMS_ITS | Clinical Summary ---
Author Organization [facility] Address [address] [place] [address] Care Team Providers Care Rubber Extrusion Machine Operator Name Role Phone Asif Coto DO Primary Care Provider [phone] Allergies Active Allergy Reactions Criticality Noted Date Comments Cyanoacrylate Hives,Rash,Swelling High 06/25/2023 Dermabond Vinyl Rash,Swelling Medium 01/30/2023 Possibly Dermabond adhesive, used after surgery Medications metFORMIN ER 500 MG 24 hr tablet Take 1 tablet (500 mg total) by mouth nightly at bedtime. 2 Active lisinopril (PRINIVIL) 5 MG tablet Take 1 tablet (5 mg total) by mouth daily. 1 Active atorvastatin 40 MG tablet Take 1 tablet (40 mg total) by mouth daily. 2 Active amLODIPine 10 MG tablet Take 1 tablet (10 mg total) by mouth daily. 2 Active cyclobenzaprine (FLEXERIL) 5 MG tablet Take 1 tablet (5 mg total) by mouth 2 (two) times daily as needed. 3 Active cyanocobalamin (B-12) 1000 MCG/ML injection Inject 1 mL (1,000 mcg total) into the muscle once a week. 3 Active losartan (COZAAR) 50 MG tablet Take 1 tablet (50 mg total) by mouth daily. 3 Active HYDROMORPHONE HCL IJ Via internal pump Active OZEMPIC 1 mg/dose injection (PEN) Inject into the skin once a week. 3 Active pantoprazole EC (PROTONIX) 40 MG tablet Take 1 tablet (40 mg total) by mouth daily. 4 Active Eszopiclone 3 MG Tab Take 3 mg by mouth nightly at bedtime. 4 Active levothyroxine (SYNTHROID) 75 MCG tablet Take 1 tablet (75 mcg total) by mouth every morning. 4 Active traZODone (DESYREL) 100 MG tablet Take 1 tablet (100 mg total) by mouth nightly at bedtime. 4 Active meloxicam (MOBIC) 7.5 MG tablet Take 1 tablet (7.5 mg total) by mouth daily. 30 tablet 2 4 Active famotidine (PEPCID) 40 MG tablet Take 1 tablet (40 mg total) by mouth daily. 4 Active sucralfate (CARAFATE) 1 G tablet Take 1 tablet (1 g total) by mouth 3 (three) times daily. 4 Active TRUEplus Lancets 33G [facility] 1 04/29/19 25 Discontinue d(Therapy completed) TRUE METRIX BLOOD GLUCOSE TEST test strip 1 04/29/19 25 Discontinue d(Discontin ued by another clinician) Blood Glucose Monitoring Suppl (TRUE METRIX METER) w/Device Kit 1 04/29/19 25 Discontinue d(Therapy completed) vitamin D3 (CHOLECALCIFERO L) 25 mcg tablet Take 1 tablet (25 mcg total) by mouth daily. 04/29/19 25 Discontinue d(Discontin ued by another clinician) Dewey-3 Fatty Acids (FISH OIL) 500 MG capsule Take 1,000 mg by mouth daily. 04/29/19 25 Discontinue d(Discontin ued by another clinician) [facility] Natural Products (OSTEO BI-FLEX ADV TRIPLE ST) Tab Take 1 tablet by mouth 2 (two) times a day. 04/29/19 25 Discontinue d(Discontin ued by another clinician) Coconut Oil 1000 MG Cap Take 3,000 mg by mouth 2 (two) times a day. 04/29/19 25 Discontinue d(Discontin ued by another clinician) Hospital, Clinic, or Other Facility Administered Medication Ordered Dose Route Frequency Start Date End Date Status lidocaine (XYLOCAINE) 1 % injection SOLN 8 mL 8 mL Other Once 04/29/2024 04/29/2024 Ended methylPREDNISolone acetate (DEPO-Medrol) injection 80 mg 80 mg Other Once 04/29/2024 04/29/2024 Ended Active Problems Problem Noted Date Diagnosed Date Fall, initial encounter 05/12/2024 Traumatic injury of head, initial encounter 04/17 Other closed fracture of dis leobardo end of left radius, initial encounter 05/12/2024 Closed avulsion fracture of greater trochanter of femur, left, initial encounter (CMS/HCC HHS/HCC) 05/12/2024 Primary osteoarthritis of left knee 04/29/2024 Aftercare following left hip joint replacement s do 06/25/2023 History of total hip arthroplasty, left 02/28/20 History of total right hip arthroplasty 02/27/20 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 10/27/2022 Resolved Problems Problem Noted Date Diagnosed Date Resolved Date Osteoarthritis of right hip 02/26/2023 06/22/2023 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 01/31/2023 06/22/2023 Overview (01/31/2023): Added automatically from request for surgery [id number] Encounters Date Type Department Care Team Description 05/21/[address] [address] Blanco Solis FNP-BC CT (SCAN) 05/13/[address] [address] Blanco Solis FNP-BC Question (Exos [employer]ace Question) 05/12/2024 10:46 AM IRONER OR PRESSER - 05/12/2024 11:59 PM IRONER OR PRESSER Hospital [facility] [address] [place] [address] Blanco Solis FNP-BC Discharge Disposition: Home or Self Care (Routine Discharge) 05/12/2024 9:30 AM IRONER OR PRESSER Office Visit [address] [address] Blanco Solis FNP-BC Wrist Pain (DOI:05/08/2024-LEF T ) 05/12/2024 9:21 AM IRONER OR PRESSER - 05/12/2024 10:45 AM IRONER OR PRESSER Hospital Encounter [facility] [address] [place] [address] Blanco Solis CERTIFIED LEGAL INVESTIGATOR-BC Discharge Disposition: Home or Self Care (Routine Discharge) 05/12/[address] [address] Blanco Solis FNP-BC Results (CT scan results) 05/12/2024 Travel 05/09/2024 Orders Only [address] [address] Blanco Solis FNP-BC 05/09/[address] [address] Blanco Solis CERTIFIED LEGAL INVESTIGATOR-BC Appointment Request 04/29/2024 1:45 PM IRONER OR PRESSER Office Visit [address] [address] Blanco Solis CERTIFIED LEGAL INVESTIGATOR-BC Knee Pain (LEFT) 04/29/2024 MyChart Message Enc [address] [address] Blanco Solis CERTIFIED LEGAL INVESTIGATOR-BC Visit Follow Up 04/29/2024 Travel from Last 3 Months Family History Medical [...] oz pur e alcohol) Occassionaly. [facility] Utilities Answer Date Recorded In the past 12 months has [facility] electric, gas, oil, or water company threatened [...] declined 02/26/2023 How often do you attend mandaeism or yarsanism serv ices? Patient declined 02/26/2023 Do you belong to any clubs o r organizations such as mandaeism groups, unions, fraternal or athletic groups, or [...] Recorded Patient Health Questionnaire-2 Score 0 02/26/2023 [facility] of Occupat ional Health - Occupational Stress [...] Sexual Orientation Straight 02/26/2023 1: 40 PM IRONER OR PRESSER Last Filed Vital Signs Vital Sign Reading Time Taken Comments Blood Pressure 122/66 11/05/2023 11:23 AM CDT Pulse 79 11/05/2023 11:23 AM CDT Temperature 35.8 C (96.4 F) 06/30/2023 2:37 PM CDT Respiratory Rate 21 06/30/2023 2:37 PM CDT Oxygen Saturation 97% 12/10/2023 2:29 PM CDT Inhaled Oxygen Concentration - - Weight 67.6 kg (149 lb) 05/12/2024 9:23 AM IRONER OR PRESSER Height 165.1 cm (5' 5 ) 05/12/2024 9:23 AM IRONER OR PRESSER Body Mass Index 24.79 05/12/2024 9:23 AM IRONER OR PRESSER Plan of Treatment Upcoming Encounters Date Type Department Care Team (Late st Contact Info) Description 05/22/2024 2:30 PM IRONER OR PRESSER Appointment [facility] [place] [address] [place] [address] Blanco Solis, [facility] [address] [place] [address] Health Maintenance Due Date Last Done Comments [...] (1 - 1-dose 75+ series) 2029 Meningococcal B Vaccine Aged Out No l onger eligible based on patient's age to complete this topic Meningococcal Vaccine Aged Out No flaquito greta eligible based on patient's age to complete this topic RSV Immunizations Under 20 Months Aged Out No longer eligible based on patient's age to complete this topic Medical Devices Implanted Type Area Auto Vinyl Top Installer Device Identifier Shelf Expiration Date Model / Serial / Lot Head Depuy Femoral Articuleze 28mm +1.5 - [id number] Implanted:Qty : 1 on 02/26/2023 by Roldan Rader MD at [facility] Hip Components Right: Hip DEPUY [id number] 06/14/2027 [id number] / / [id number] Stem Hip Depuy Tapered 155mm - [id number] Implanted:Qty : 1 on 06/21/2023 by Roldan Rader MD at [facility] Hip Components Left: Hip DEPUY [id number] 10/13/2032 [id number] / / [id number] Stimulator Lead Implant-2018 Implanted: (Quantity not on file) Lead Implant Back [employer] [id number] / [id number] / Stimulator Lead Implant-2018 Implanted: (Quantity not on file) Lead Implant Back [employer] [id number] / [id number] / Pain Pump- Implanted:Qty : 1 on 12/07/2021 Pump Abdomen [employer] [id number] / [id number] / Description:ME CONDITIONAL A T 1.5 T OR 3 T, NEED IMAGING TO CHECK PUMP POSITION PRIOR TO MRI(MRI TECHNICAL MANUAL PAGE 12), PUMP NEEDS TO BE CHECKED BY [employer] REP AFTER SCAN Stimulator Implant-2018 Implanted:Qty : 1 on 06/12/2018 Stimulator Implant Back [employer] [id number] / [id number] / Description:MR CONDITIONAL A T 1.5 T ONLY, NEED REMOTE TO TURN OFF STIMULATION AND CHECK FULL BODY ELIGIBLE, NORMAL SCAN MODE , MAX TOTAL SCAN TIME OF 30 MIN IN 90 MIN WINDOW, CHECK MOST RECENT MRI MANUAL FOR SCAN CONDITIONS [place] Por[employer] Acetabular Shell Sector 11 Implanted:Qty : 1 on 02/26/2023 by Roldan Rader MD at [facility] Right: Hip DEPUY 11/13/2032 [id number] / / [id number] [place] Cancellous Bone Screw Implanted:Qty : 1 on 02/26/2023 by Roldan Rader MD at [facility] Right: Hip DEPUY 08/13/2032 [id number] / / [id number] [place] Hip Solutions Dual Mobility Liner Implanted:Qty : 1 on 02/26/2023 by Roldan Rader MD at [facility] Right: Hip DEPUY 10/13/2032 [id number] / / [id number] B[place] Altrx Liner Implanted:Qty : 1 on 02/26/2023 by Roldan Rader MD at [facility] Right: Hip DEPUY 01/13/2027 [id number] / / [id number] [place] Femoral Stem 03/29 Tapered W/ [place] Implanted:Qty : 1 on 02/26/2023 by Roldan Rader MD at [facility] Right: Hip DEPUY 02/14/2032 [id number] / / [id number] [place] Cancellous Bone Screw Implanted:Qty : 1 on 06/21/2023 by Roldan Rader MD at [facility] Left: Hip [employer]PU[employer] - A OSMIN & OSMIN 12/14/2032 0 / / [id number] M=Spec Metal Femoral Head Implanted:Qty : 1 on 06/21/2023 by Roldan Rader MD at [facility] Left: Hip [employer] - A OSMIN & OSMIN 10/13/2026 0 / / [id number] Bi-Mentum Altrax Liner Implanted:Qty : 1 on 06/21/2023 by Roldan Rader MD at [facility] Left: Hip [employer] - A OSMIN & OSMIN 11/13/2026 [id number] / / [id number] [place] [employer] Dual Mobility Liner Implanted:Qty : 1 on 06/21/2023 by Roldan Rader MD at [facility] Left: Hip [employer] - A OSMIN & OSMIN [id number] 03/15/2033 7 / / [id number] [place] Por[place]oat Acetabular Shell Sector Ii Implanted:Qty : 1 on 06/21/2023 by Roldan Rader MD at [facility] Left: Hip [employer] - A OSMIN & OSMIN 11/13/2032 4 / / [id number] Explanted Type Area Auto Vinyl Top Installer Device Identifier Shelf Expiration Date Model / Serial / Lot Drill Bit Explanted:Qty: 1 on 02/26/2023 by Roldan Rader MD at [facility] Right: Hip [id number] / / Drill Bit Explanted:Qty: 1 on 06/21/2023 by Roldna Rader MD at [facility] Left: Hip [id number] / / Procedures Procedure Name Priority Date/Time Associated Diagnosis Comments CT HEAD WO CON STAT 05/12/2024 11:04 AM IRONER OR PRESSER Fall, initial encounter Traumatic injury of head, initial encounter XR PELVIS+LT HIP 2V Routine 05/12/2024 1 0:13 AM IRONER OR PRESSER History of total hip arthroplasty, left XR WRIST LT MIN 3V Routine 05/12/2024 9: 29 AM IRONER OR PRESSER Left wrist pain from Last 3 Months Results * CT HEAD WO CON (05/12/2024 11:04 AM IRONER OR PRESSER) Anatomical Region Laterality Modality Head Computed Tomogra phy 05/12/2024 11:2 0 AM IRONER OR PRESSER Impressions 05/12/2024 11:24 AM IRONER OR PRESSER IMPRESSION: 1. No acute intracranial process identified. 2. Mild small vessel disease. 3. Small left frontal scalp hematoma. Ordered By: BLANCO SOLIS Interpreted By: Abimael Shannon MD, 05/12/2024 11:20 AM Narrative 05/12/2024 11:24 AM IRONER OR PRESSER [address] [place] [address] Examination: CT of the head without contrast. Exam time: 1109 hours. Clinical history: Persistent headache since a fall four days ago. Comparison: None. Technique: Noncontrast axial scans from skull base to vertex. Sagittal and coronal reconstructions were performed from the data set. A dose lowering technique was used for this procedure, which may include, but is not limited to, dose reduction techniques, automated exposure control, the use of iterative reconstruction and ALARA/Image Gently techniques. Findings: The ventricles are normal in size and configuration. No shift of midline or mass effect is noted. There is prominence of the fissures and sulci, compatible with age. There is mild periventricular decreased attenuation, compatible with small vessel disease. Intracranially, no other areas of abnormal x-ray attenuation are identified. In particular, there is no mass, hemorrhage or sign of acute stroke. No extracerebral fluid collections. The skull appears intact. The mastoid air cells and visualized paranasal sinuses appear clear. There is an approximately 1.5 x 0.5 cm left frontal scalp hematoma. Procedure Note Abimael Shannon MD - 05/12/2024 [facility] [address] [place] [address] Examination: CT of the head without contrast. Exam time: 1109 hours. Clinical history: Persistent headache since a fall four days ago. Comparison: None. Technique: Noncontrast axial scans from skull base to vertex. Sagittal andcoronal reconstructions were performed from the data set. A dose loweringtechnique was used for this procedure, which may include, but is notlimited to, dose reduction techniques, automated exposure control, the useof iterative reconstruction and ALARA/Image Gently techniques. Findings: The ventricles are normal in size and configuration. No shift ofmidline or mass effect is noted. There is prominence of the fissures andsulci, compatible with age. There is mild periventricular decreasedattenuation, compatible with small vessel disease. Intracranially, noother areas of abnormal x-ray attenuation are identified. In particular,there is no mass, hemorrhage or sign of acute stroke. No extracerebralfluid collections. The skull appears intact. The mastoid air cells andvisualized paranasal sinuses appear clear. There is an approximately 1.5 x0.5 cm left frontal scalp hematoma. IMPRESSION: 1. No acute intracranial process identified. 2. Mild small vessel disease. 3. Small left frontal scalp hematoma. Ordered By: BLANCO SOLIS Interpreted By: Abimael Shannon MD, 05/12/2024 11:20 AM us Blanco Solis CERTIFIED LEGAL INVESTIGATOR-BC CT Final Resu lt * XR PELVIS+LT HIP 2V (05/12/2024 10:13 AM IRONER OR PRESSER) Anatomical Region Laterality Modality Hip, Pelvis Radiographic Chanel ging 05/12/2024 1:31 PM IRONER OR PRESSER Impressions 05/12/2024 1:35 PM IRONER OR PRESSER IMPRESSION: 1) No significant acute radiographic abnormality. Ordered By: BLANCO SOLIS Interpreted By: Xavier Reis MD, 05/12/2024 1:31 PM Narrative 05/12/2024 1:35 PM IRONER OR PRESSER [address] 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 SI joints and pubic symphysis demonstrate no evidence of diastases. There are bilateral total hip prostheses present. The left hip prosthesis is visualized in its entirety and is normal in appearance. There is no evidence of acute fracture demonstrated. Chronic sclerotic change involving the left iliac crest is unchanged compared to numerous previous studies. Procedure Note Xavier Reis MD - 05/12/[address] [place] [address] Examination: XR PELVIS+LT HIP 2V Exam time: 05/12/2024 10:13 AM Clinical history: Trauma, previous left hip arthroplasty Comparison: 08/14/2023 Technique: AP pelvis, AP and oblique views left hip Findings: Pain pump stimulator devices project over the pelvis withadvanced chronic degenerative disc disease lumbar spine. SI joints andpubic symphysis demonstrate no evidence of diastases. There are bilateraltotal hip prostheses present. The left hip prosthesis is visualized in itsentirety and is normal in appearance. There is no evidence of acutefracture demonstrated. Chronic sclerotic change involving the left iliaccrest is unchanged compared to numerous previous studies. IMPRESSION: 1) No significant acute radiographic abnormality. Ordered By: BLANCO SOLIS Interpreted By: Xavier Reis MD, 05/12/2024 1:31 PM Blanco Solis CERTIFIED LEGAL INVESTIGATOR-BC GENERAL IMAGING Final Resu lt * XR WRIST LT MIN 3V (05/12/2024 9:29 AM IRONER OR PRESSER) Anatomical Region Laterality Modality Wrist Radiographic Chanel ging 05/13/2024 8:25 AM IRONER OR PRESSER Impressions 05/13/2024 8:28 AM IRONER OR PRESSER IMPRESSION: No acute findings. See text. Ordered By: BLANCO SOLIS Interpreted By: Abimael Shannon MD, 05/13/2024 8:25 AM Narrative 05/13/2024 8:28 AM IRONER OR PRESSER [address] [place] [address] Examination: Left wrist. Exam time: 0826 hours. Clinical history: Pain after a fall. Comparison: 10/29/2006. Technique: Three views. Findings: There has been interval resection of the trapezium and adjacent ossicles. No fracture, dislocation or other acute bony abnormality is identified. There is some widening of the scapholunate joint space, likely developing laxity related to the resection. No other significant bone or joint abnormality is noted. No acute soft tissue abnormality. Procedure Note Abimael Shannon MD - 05/13/[address] [place] [address] Examination: Left wrist. Exam time: 0826 hours. Clinical history: Pain after a fall. Comparison: 10/29/2006. Technique: Three views. Findings: There has been interval resection of the trapezium and adjacentossicles. No fracture, dislocation or other acute bony abnormality isidentified. There is some widening of the scapholunate joint space, likelydeveloping laxity related to the resection. No other significant bone orjoint abnormality is noted. No acute soft tissue abnormality. IMPRESSION: No acute findings. See text. Ordered By: BLANCO SOLIS Interpreted By: Abimael Shannon MD, 05/13/2024 8:25 AM Blanco Solis CERTIFIED LEGAL INVESTIGATOR-BC GENERAL IMAGING Final Resu lt from Last 3 Months Insurance MEDICAID DEPT OF [address] MEDICAID Advance Directives * Full Code (Latest Code Status on File) Date Activated Date Inactivated Comments 06/21/2023 11:17 AM 06/22/2023 5:02 PM * Full Code Date Activated Date Inactivated Comments 02/26/2023 1:09 PM 02/27/2023 4:49 PM Care Teams Rubber Extrusion Machine Operator Relationship Specialty Start Date End Date Asif Coto DO [address] [place] [address] PCP - General FAMILY PRACTICE 09/29/21
--- OUTSIDE RECORDS SUMMARY | 2024-05-21 15:27 | XMS_ITS | Encounter Summary ---
Author Organization [facility] Address [address] [place] [address] Care Team Providers Care Executive Kitchen Manager Name Role Phone Asif Coto DO Primary Care Provider [phone] Encounter Details Date Type Department Care Team (Late st Contact Info) Description 04/29/2024 World Reviewer Message Enc [facility] [place] [address] Sujatha Solis, [facility] [address] [place] [address] Visit Follow Up Social History Tobacco Use Types Packs/Day Years Used Date Smoking Tobacco: Former Cigarettes Smokeless Tobacco: Never Alcohol Use Standard Drinks/Week Comments Not Currently 0 (1 standard drink = 0.6 oz pur e alcohol) Occassionaly. [facility] Utilities Answer Date Recorded In the past 12 months has [employer], gas, oil, or water [employer] threatened to shut off services in your [...] declined 02/26/2023 How often do you attend caodaism or mu-ism serv ices? Patient declined 02/26/2023 Do you belong to any clubs o r organizations such as caodaism groups, unions, fraternal or athletic groups, or [...] Questionnaire-2 Score 0 02/26/2023 [facility] Occupational Stress Questionnaire Answer [...] Sexual Orientation Straight 02/26/2023 1: 40 PM DISABILITY RATER documented as of this encounter Functional Status [...] Assessment Author Status No 06/21/2023 11:27 AM DISABILITY RATER Yanira Castellanos RN Active documented as of this encounter Mental Status * Because of a physical, mental, or emotional condition, do you have serious difficulty concentrating, remembering, or making decisions? Answer Entry Date Author Status No 06/21/2023 11:27 AM DISABILITY RATER Yanira Castellanos RN Active documented in this encounter Plan of Treatment Upcoming Encounters Date Type Department Care Team (Late st Contact Info) Description 05/22/2024 2:30 PM DISABILITY RATER Appointment [facility] [address] [place] [address] Sujatha Solis, [facility] [address] [place] [address] documented as of this encounter Visit Diagnoses Not on filedocumented in this encounter Care Teams Executive Kitchen Manager Relationship Specialty Start Date End Date Asif Coto DO [address] [place] [address] PCP - General FAMILY PRACTICE 09/29/21 documented as of this encounter
== END 2024-05-21 14:48 | disposition home or self-care (01) ==
PROVIDERS: PCP Family Medicine; Visit Provider Family Medicine
DX: Z12.31 Encounter for screening mammogram for malignant neoplasm of breast (principal)
CPT/HCPCS: 77063; 77067

== ENCOUNTER 2024-07-01 12:50 | Emergency (ER) | payer MEDICARE, MEDICAID, SELFPAY ==
--- NOTE | ~2024-07-01 | XR_ITS ---
XR shoulder LT min 2V Ordering provider: Júnior Hansen MD History: . pain after lifting heavy object yesterday . Comparison: None. FINDINGS: BONES: No acute fracture or dislocation. JOINT SPACES: The acromioclavicular joint shows osteoarthritic changes.. The glenohumeral joint shows osteoarthritic changes. SOFT TISSUES: Normal. IMPRESSION: No acute osseous abnormality left shoulder. Osteoarthritic changes of the acromioclavicular and glenohumeral joints. Reviewed, dictated and finalized at location A.
[2024-07-01 12:50] VITALS: BP 142/88; PULSE 80; RESP 18; TEMP 36.7; O2SAT 96
--- NOTE | 2024-07-01 13:29 | ED.GENADULT ---
HPI - General Adult General Chief complaint: Extremity Injury, Upper Stated complaint: shoulder injury Source: patient Mode of arrival: ambulatory History of Present Illness HPI narrative: patient complains of left shoulder pain anteriorly for the last 5 weeks is worse since yesterday when she lifted up a compressor. She has been using heating pad without much relief. Worse when she moves it. Denies any previous pain or any other joint pain. Otherwise she is drinking eating voiding stooling fine without any swelling lumps or bumps weakness numbness tingling paresthesias bleeding or bruising rash or itching dizziness or lightheadedness or any other complaints. She thinks she may Have dislocated her left shoulder. Denies any other complaints. She has a Dilaudid pump for chronic back pain. Related Data Home Medications ?Medication ?Instructions ?Recorded ?Confirmed ?Last Taken ?Type calcium carbonate (Calcium 600) 600 mg PO DAILY 12/26/21 04/17/24 04/16/24 History cholecalciferol (vitamin D3) 25 25 mcg PO DAILY 12/26/21 04/17/24 04/16/24 History mcg (1,000 unit) capsule coconut oil 1,000 mg capsule 3,000 mg PO DAILY 12/26/21 04/17/24 04/16/24 History glucosamine 750 ck-fsuicrnlpdf-lmc 1 tablet PO BID 12/26/21 04/17/24 04/16/24 History no1 644 mg-C 30 mg-nelia 1 mg tablet (Osteo Bi-Flex Triple Strength) multivitamin (Daily Multi-Vitamin 1 tablet PO DAILY 12/26/21 04/17/24 04/16/24 History tablet) omega 4-cto-pbn-fish oil 1,000 mg 1 cap PO DAILY 12/26/21 04/17/24 04/16/24 History (120 mg-180 mg) capsule (Fish Oil) ferrous sulfate 325 mg (65 mg 325 mg PO DAILY 04/07/24 04/17/24 04/16/24 History iron) tablet (iron) magnesium 250 mg tablet 250 mg PO DAILY 04/07/24 04/17/24 04/16/24 History vitamin E (dl, acetate) 180 mg 180 mg PO DAILY 04/07/24 04/17/24 04/16/24 History (400 unit) capsule Allergies Allergy/AdvReac Type Severity Reaction Status Date / Time pimozide Allergy Unknown Weakness Verified 07/01/24 12:51 Review of Systems Review of Systems: All systems reviewed & are unremarkable except as noted in HPI and below PMFSH Past Medical History Medical History Left knee pain Hypertension Chronic pain syndrome Medial epicondylitis, right elbow 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 Major depression, recurrent Back pain with history of spinal surgery Type 2 diabetes mellitus Hypothyroidism Generalized anxiety disorder Esophageal reflux disease Diffuse arthralgia Chronic low back pain with bilateral sciatica Acquired scoliosis Abnormal involuntary movements Surgical History Surgical History H/O colonoscopy History of back surgery H/O knee surgery Family History Family History Other Diabetes mellitus Social History Social History Smoking status: Former smoker Additional smoking assessment comments: 1989 Alcohol intake: current Drinks per week: 2 Alcohol use details: Drinks on Sunday nights only Substance use: never Substance use type: opiates and painkillers Lack of Transportation: No Lack of Food: Never True Current Housing: I Have Housing Concerned About Future Housing: No Difficulty Paying Gas/Electric Bills: No Difficulty Paying for Meds: No Currently Unemployed: No Education: High School Diploma/GED Difficulty w/ Childcare or Family Care: No Living arrangements: alone Spiritual care concerns: No Exam Narrative: White female patient with no apparent distress.? Head normocephalic, atraumatic.? Eyes conjunctiva pink sclera nonicteric.? Extraocular movements are intact.? Ears externally normal.? Neck is supple nontender no lymphadenopathy.? Back is nontender.? Lungs are clear.? Heart is regular rate and rhythm without murmurs gallops or rubs.? Chest wall nontender.? Extremities : Left shoulder mild anterior tenderness she has decreased range of motion wth Regards to internal and external rotation. left upper extremity is neurovascular intact. extremities have no cyanosis clubbing or edema.? Skin is warm and dry without rashes or lesions.? Neurological patient is alert and oriented x4.? Motor and sensory grossly intact.? Gait is normal. Course Vital Signs Vital signs: Vital Signs Temperature 36.7 C 07/01/24 12:50 Pulse Rate 80 07/01/24 12:50 Respiratory Rate 18 07/01/24 12:50 Blood Pressure 142/88 H 07/01/24 12:50 Pulse Oximetry 96 07/01/24 12:50 Oxygen Delivery Room Air 07/01/24 12:50 Temperature 36.7 C 07/01/24 12:50 Pulse Rate 80 07/01/24 12:50 Respiratory Rate 18 07/01/24 12:50 Blood Pressure 142/88 H 07/01/24 12:50 Pulse Oximetry 96 07/01/24 12:50 Oxygen Delivery Room Air 07/01/24 12:50 Medical Decision Making MDM Narrative Medical decision making narrative: Patient placed in room: Seven ? History and physical was performed. Independent Historian: External Source Review: Differential Dx includes but not limited to: dislocation shoulder sprain rotator cuff injury Medications were Reviewed: home meds reviewed: She is on a Dilaudid pump Medications given: patient refused Toradol IM Independently Interpreted by me: Shared decision Making: evaluation was discussed with the patient all questions were asked and answered and patient agreed with the plan. Social Situation Impacting Patients Care: Discussed with Dr. PRITCHARD DIAGNOSIS: Left shoulder pain. DISPOSITION : Discharge home CONDITION AT DISCHARGE: stable Vital Signs Vital Signs: Vital Signs Temperature 36.7 C 07/01/24 12:50 Pulse Rate 80 07/01/24 12:50 Respiratory Rate 18 07/01/24 12:50 Blood Pressure 142/88 H 07/01/24 12:50 Pulse Oximetry 96 07/01/24 12:50 Oxygen Delivery Room Air 07/01/24 12:50 Temperature 36.7 C 07/01/24 12:50 Pulse Rate 80 07/01/24 12:50 Respiratory Rate 18 07/01/24 12:50 Blood Pressure 142/88 H 07/01/24 12:50 Pulse Oximetry 96 07/01/24 12:50 Oxygen Delivery Room Air 07/01/24 12:50 Discharge Plan Discharge Patient Language: Taiwanese Prescriptions: No Action Osteo Bi-Flex Triple Strength 750 mg-644 mg- 30 mg-1 mg tablet 1 tablet PO BID cholecalciferol (vitamin D3) 25 mcg (1,000 unit) capsule 25 mcg PO DAILY coconut oil 1,000 mg capsule 3,000 mg PO DAILY omega 2-lwd-bkc-fish oil [Fish Oil] 1,000 mg (120 mg-180 mg) capsule 1 cap PO DAILY calcium carbonate [Calcium 600] 600 mg calcium (1,500 mg) tablet 600 mg PO DAILY multivitamin [Daily Multi-Vitamin] Tablet 1 tablet PO DAILY eszopiclone [Lunesta] 3 mg tablet 3 mg PO QHS 10 Days Qty: 10 1RF Patient Comments: Not taking any more. Stopped taking 3 months ago. ferrous sulfate [iron] 325 mg (65 mg iron) tablet 325 mg PO DAILY vitamin E (dl, acetate) 180 mg (400 unit) capsule 180 mg PO DAILY magnesium 250 mg tablet 250 mg PO DAILY (DME) blood-glucose meter Misc See Rx Instructions .Route Qty: 1 0RF Rx Instructions: Testing once daily. Dx: E11.9 (DME) lancets [Fingerstix Lancets] Misc See Rx Instructions .Route Qty: 100 0RF Rx Instructions: Testing once daily. (DME) Blood Glucose Test Strip See Rx Instructions .Route Qty: 100 0RF Rx Instructions: Testing once daily. cyclobenzaprine 5 mg tablet 5 mg PO TID PRN (Reason: muscle spasm) Qty: 45 0RF triamcinolone acetonide 0.5 % cream 1 applic topical TID PRN (Reason: rash) Qty: 30 1RF levothyroxine 75 mcg tablet See Rx Instructions .ROUTE .COMPLEX Qty: 90 0RF Dose Instruction: TAKE ONE TABLET BY MOUTH DAILY Rx Instructions: TAKE ONE TABLET BY MOUTH DAILY trazodone 100 mg tablet 100 mg PO QHS PRN (Reason: insomnia) Qty: 90 0RF cyanocobalamin (vitamin B-12) 1,000 mcg/mL solution See Rx Instructions .ROUTE .COMPLEX Qty: 10 0RF Dose Instruction: INJECT 1000 MCG SUBCUTANEOUSLY WEEKLY Patient Comments: every sunday Rx Instructions: INJECT 1000 MCG SUBCUTANEOUSLY WEEKLY meloxicam 7.5 mg tablet See Rx Instructions .ROUTE .COMPLEX Qty: 30 0RF Dose Instruction: TAKE 1 TABLET (7.5 MG TOTAL) BY MOUTH DAILY. Rx Instructions: TAKE 1 TABLET (7.5 MG TOTAL) BY MOUTH DAILY. metformin 500 mg tablet extended release 24 hr See Rx Instructions .ROUTE .COMPLEX Qty: 180 0RF Dose Instruction: TAKE 2 TABLETS BY MOUTH IN THE EVENING Rx Instructions: TAKE 2 TABLETS BY MOUTH IN THE EVENING pantoprazole 40 mg tablet,delayed release (DR/EC) See Rx Instructions .ROUTE .COMPLEX Qty: 42 0RF Dose Instruction: TAKE ONE TABLET BY MOUTH EVERY MORNING FOR 6 WEEKS Rx Instructions: TAKE ONE TABLET BY MOUTH EVERY MORNING FOR 6 WEEKS amlodipine 10 mg tablet See Rx Instructions .ROUTE .COMPLEX Qty: 90 0RF Dose Instruction: TAKE ONE TABLET BY MOUTH DAILY Rx Instructions: TAKE ONE TABLET BY MOUTH DAILY famotidine 40 mg tablet 40 mg PO DAILY Qty: 90 0RF sucralfate [Carafate] 1 gram tablet 1 g PO TID Qty: 90 0RF semaglutide 1 mg/dose (4 mg/3 mL) pen injector 1 mg subcut WEEKLY Qty: 3 3RF Patient Comments: Every Sunday morning. lisinopril 5 mg tablet 5 mg PO DAILY Qty: 90 1RF atorvastatin 40 mg tablet See Rx Instructions .ROUTE .COMPLEX Qty: 90 1RF Dose Instruction: TAKE ONE TABLET BY MOUTH EVERY DAY Rx Instructions: TAKE ONE TABLET BY MOUTH EVERY DAY Follow-up/Referrals: Asif Coto DO [Primary Care Provider] -
--- OUTSIDE RECORDS SUMMARY | 2024-07-01 14:07 | XMS_ITS | Encounter Summary ---
Author Organization [facility] Address [address] [place] [address] Care Team Providers Care Job Interviewer Name Role Phone Asif Coto DO Primary Care Provider [phone] Reason for Visit * Reason Onset Date Comments Appointment Request 07/01/2024 LEFT jackie vora Encounter Details Date Type Department Care Team (Late st Contact Info) Description 07/01/2024 Telephone [facility] [address] [facility] [address] [place] [address] Candida Pardon PA [address] [place] [address] Appointment Request (LEFT shoulder) Social History Tobacco Use Types Packs/Day Years Used Date Smoking Tobacco: Former Cigarettes Smokeless Tobacco: Never Alcohol Use Standard Drinks/Week Comments Not Currently 0 (1 standard drink = 0.6 oz pur e alcohol) Occassionaly. [facility] Utilities Answer Date Recorded In the past 12 months has e [employer], gas, oil, or water [employer] threatened to shut off services in your [...] declined 02/26/2023 How often do you attend religion or christianity serv ices? 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 Shestates that [facility] She denies pop but had immediate pain. She states that she is unable to move her LEFT upper extremity at all. She feels like it is out of place. She states that she had never had anything like this happen before. She locates her pain in her entire LEFT shoulder. She has been using a heating pad without relief. RN asked patient to perform a visual inspection of her shoulder and patient states that she does have a knot in the front that was not there before this incident. Patient is in audible distress over the phone attempted to inspect shoulder due to pain. RN advised that providers will require that patient proceed in the ER if there is question about dislocation. Patient states that she does not want to go to ER and just wants a xray. RN advised will review with provider. Rn reviewed with provider and recommendations are to proceed to ER for evaluation. RN informed patient and she voices understanding. * KATIE Rees - 07/01/2024 11:18 AM CDT ----- Message from Adamaris Hernandez sent at 07/01/2024 10:50 AM CDT ----- Left shoulder is hurting. She was using a air press and thinks she popped her shoulder out. documented in this encounter Plan of Treatment Not on file documented as of this encounter Visit Diagnoses Not on filedocumented in this encounter Care Teams Job Interviewer Relationship Specialty Start Date End Date Asif Coto DO [address] [place] [address] PCP - General FAMILY PRACTICE 09/29/21 documented as of this encounter
--- OUTSIDE RECORDS SUMMARY | 2024-07-01 14:07 | XMS_ITS | Clinical Summary ---
Author Organization [facility] Address [address] [place] [address] Care Team Providers Care Heat Plant Specialist Name Role Phone Asif Coto DO Primary Care Provider [phone] Allergies Active Allergy Reactions Criticality Noted Date Comments Cyanoacrylate Hives,Rash,Swelling High 06/25/2023 Dermabond Vinyl Rash,Swelling Medium 01/30/2023 Possibly Dermabond adhesive, used after surgery Medications metFORMIN ER 500 MG 24 hr tablet Take 1 tablet (500 mg total) by mouth nightly at bedtime. 05/13/2021 Active lisinopril (PRINIVIL) 5 MG tablet Take 1 tablet (5 mg total) by mouth daily. 12/29/2020 Active atorvastatin 40 MG tablet Take 1 tablet (40 mg total) by mouth daily. 06/03/2021 Active amLODIPine 10 MG tablet Take 1 tablet (10 mg total) by mouth daily. 06/27/2021 Active cyclobenzaprine (FLEXERIL) 5 MG tablet Take [...] mouth daily. 30 tablet 2 01/22/2024 Active famotidine (PEPCID) 40 MG tablet Take 1 tablet (40 mg total) by mouth daily. 03/10/2024 Active sucralfate (CARAFATE) 1 G tablet Take 1 tablet (1 g total) by mouth 3 (three) times daily. 03/10/2024 Active Active Problems Problem Noted Date Diagnosed Date Fall, initial encounter 05/12/2024 Traumatic injury of head, initial encounter 04/17 Other closed fracture of dis leobardo end of left radius, initial encounter 05/12/2024 Closed avulsion fracture of greater trochanter of femur, left, initial encounter ([facility]) 05/12/2024 Primary osteoarthritis of left knee 04/29/2024 Aftercare following left hip joint replacement s do 06/25/2023 History of total hip arthroplasty, left 02/28/20 23 History of total right hip arthroplasty 02/27/20 23 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 10/27/2022 Resolved Problems Problem Noted Date Diagnosed Date Resolved Date Osteoarthritis of right hip 02/26/2023 06/22/2023 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 01/31/2023 06/22/2023 Overview (01/31/2023): Added automatically from request for surgery [id number] Encounters Date Type Department Care Team Description 07/01/2024 [place] [address] Candida Padron PA Appointment Request (LEFT shoulder) 06/10/[address] [address] Blanco Solis FNP-BC Medication Request 05/26/[address] [address] Blanco Solis FNP-GARY CT Results 05/22/2024 2:30 PM HYDROGENATION STILL OPERATOR - 05/22/2024 11:59 PM HYDROGENATION STILL OPERATOR Hospital Encounter [facility] [address] [place] [address] Blanco Solis FNP-BC Discharge Disposition: Home or Self Care (Routine Discharge) 05/22/2024 Travel 05/22/[address] [address] Candida Padron PA Question 05/21/[address] [address] Blanco Solis FNP-GARY CT (SCAN) 05/13/[address] [address] Blanco Solis FNP-GARY Question ([employer] Question) 05/12/2024 10:46 AM HYDROGENATION STILL OPERATOR - 05/12/2024 11:59 PM HYDROGENATION STILL OPERATOR Hospital Encounter [facility] [address] [place] [address] Blanco Solis FNP-BC Discharge Disposition: Home or Self Care (Routine Discharge) 05/12/2024 9:30 AM HYDROGENATION STILL OPERATOR Office Visit [address] [address] Blanco Solis FNPKRZYSZTOF Wrist Pain (DOI:05/08/2024-LEF T ) 05/12/2024 9:21 AM HYDROGENATION STILL OPERATOR - 05/12/2024 10:45 AM HYDROGENATION STILL OPERATOR Hospital Encounter [facility] [address] [place] [address] Blanco Solis FNP-BC Discharge Disposition: Home or Self Care (Routine Discharge) 05/12/[address] [address] Blanco Solis FNP-BC Results (CT scan results) 05/12/2024 Travel 05/09/2024 Orders Only [address] [address] Blanco Solis FNP-BC 05/09/[address] [address] Blanco Solis FNP-BC Appointment Request 04/29/2024 1:45 PM HYDROGENATION STILL OPERATOR Office Visit [address] [address] Blanco Solis FNP-BC Knee Pain (LEFT) 04/29/2024 MyChart Message Enc [address] [address] Blanco Solis FNP-BC Visit Follow Up 04/29/2024 Travel from Last [...] = 0.6 oz pur e alcohol) Occassionaly. [facility] Utilities Answer Date Recorded In the past 12 months has e [employer], gas, oil, or water [employer] threatened to shut off services in your [...] declined 02/26/2023 How often do you attend protestant or oriental orthodox serv ices? Patient declined 02/26/2023 Do you belong to any clubs o r organizations such as protestant groups, unions, fraternal or athletic groups, or [...] Recorded Patient Health Questionnaire-2 Score 0 02/26/2023 [facility]ational [facility] Questionnaire [...] Sexual Orientation Straight 02/26/2023 1: 40 PM HYDROGENATION STILL OPERATOR Last Filed Vital Signs Vital Sign Reading Time Taken Comments Blood Pressure 122/66 11/05/2023 11:23 AM CDT Pulse 79 11/05/2023 11:23 AM CDT Temperature 35.8 C (96.4 F) 06/30/2023 2:37 PM CDT Respiratory Rate 21 06/30/2023 2:37 PM CDT Oxygen Saturation 97% 12/10/2023 2:29 PM CDT Inhaled Oxygen Concentration - - Weight 67.6 kg (149 lb) 05/12/2024 9:23 AM HYDROGENATION STILL OPERATOR Height 165.1 cm (5' 5 ) 05/12/2024 9:23 AM HYDROGENATION STILL OPERATOR Body Mass Index 24.79 05/12/2024 9:23 AM HYDROGENATION STILL OPERATOR Plan of Treatment Health Maintenance Due Date [...] this topic Medical Devices Implanted Type Area Sample Builder Device Identifier Shelf Expiration Date Model / Serial / Lot Head Depuy Femoral Articuleze 28mm +1.5 - [id number] Implanted:Qty : 1 on 02/26/2023 by Roldan Rader MD at [facility] Hip Components Right: Hip DEPUY [id number] 06/14/2027 [id number] / / [id number] Stem Hip Depuy Tapered 155mm - [id number] Implanted:Qty : 1 on 06/21/2023 by Roldan Rader MD at [facility] Hip Components Left: Hip DEPUY [id number] 10/13/2032 [id number] / / [id number] Stimulator Lead Implant-2018 Implanted: (Quantity not on file) Lead Implant Back [employer] [id number] / [id number] / Stimulator Lead Implant-2018 Implanted: (Quantity not on file) Lead Implant Back [employer] [id number] / [id number] / Pain Pump- Implanted:Qty : 1 on 12/07/2021 Pump Abdomen [employer] 8637-40 / [id number] / Description:ME CONDITIONAL A T 1.5 T OR 3 T, NEED IMAGING TO CHECK PUMP POSITION PRIOR TO MRI(MRI TECHNICAL MANUAL PAGE 12), PUMP NEEDS TO BE CHECKED BY [employer] REP AFTER SCAN Stimulator Implant-2018 Implanted:Qty : 1 on 06/12/2018 Stimulator Implant Back [employer] [id number] / [id number] / Description:MR CONDITIONAL A T 1.5 T ONLY, NEED REMOTE TO TURN OFF STIMULATION AND CHECK FULL BODY ELIGIBLE, NORMAL SCAN MODE , MAX TOTAL SCAN TIME OF 30 MIN IN 90 MIN WINDOW, CHECK MOST RECENT MRI MANUAL FOR SCAN CONDITIONS [employer] Porcoat Acetabular Shell Sector 11 Implanted:Qty : 1 on 02/26/2023 by Roldan Rader MD at [facility] Right: Hip DEPUY 11/13/2032 [id number] / / [id number] [place] Cancellous Bone Screw Implanted:Qty : 1 on 02/26/2023 by Roldan Rader MD at [facility] Right: Hip DEPUY 08/13/2032 [id number] / / [id number] [employer] Hip Solutions Dual Mobility Liner Implanted:Qty : 1 on 02/26/2023 by Roldan Rader MD at [facility] Right: Hip DEPUY 10/13/2032 [id number] / / [id number] Bimentum Altrx Liner Implanted:Qty : 1 on 02/26/2023 by Roldan Rader MD at [facility] Right: Hip DEPUY 01/13/2027 [id number] / / [id number] Branch Femoral Stem 03/29 Tapered W/ Porcoat Implanted:Qty : 1 on 02/26/2023 by Roldan Rader MD at [facility] Right: Hip DEPUY 02/14/2032 [id number] / / [id number] [place] Cancellous Bone Screw Implanted:Qty : 1 on 06/21/2023 by Roldan Rader MD at [facility] Left: Hip DEPUY [employer] - A OSMIN & OSMIN 12/14/2032 0 / / [id number] M=Spec Metal Femoral Head Implanted:Qty : 1 on 06/21/2023 by Roldan Rader MD at [facility] Left: Hip DEPUY [employer] - A OSMIN & OSMIN 10/13/2026 0 / / [id number] Bi-Mentum Altrax Liner Implanted:Qty : 1 on 06/21/2023 by Roldan Rader MD at [facility] Left: Hip DEPUY [employer] - A OSMIN & OSMIN 11/13/2026 [id number] / / [id number] [employer] Hip Solutions Dual Mobility Liner Implanted:Qty : 1 on 06/21/2023 by Roldan Rader MD at [facility] Left: Hip DEPUY [employer] - A OSMIN & OSMIN [id number] 03/15/2033 7 / / [id number] [place] Porocoat Acetabular Shell Sector Ii Implanted:Qty : 1 on 06/21/2023 by Roldan Rader MD at [facility] Left: Hip DEPUY [employer] - A OSMIN & OSMIN 11/13/2032 4 / / [id number] Explanted Type Area Sample Builder Device Identifier Shelf Expiration Date Model / Serial / Lot Drill Bit Explanted:Qty: 1 on 02/26/2023 by Roldan Rader MD at [facility] Right: Hip [id number] / / Drill Bit Explanted:Qty: 1 on 06/21/2023 by Roldan Rader MD at [facility] Left: Hip [id number] / / Procedures Procedure Name Priority Date/Time Associated Diagnosis Comments CT WRIST LT WO CON Routine 05/22/2024 2: 50 PM HYDROGENATION STILL OPERATOR Fall, initial encounter Other closed fracture of distal end of left radius, initial encounter CT HEAD WO CON STAT 05/12/2024 11:04 AM HYDROGENATION STILL OPERATOR Fall, initial encounter Traumatic injury of head, initial encounter XR PELVIS+LT HIP 2V Routine 05/12/2024 1 0:13 AM HYDROGENATION STILL OPERATOR History of total hip arthroplasty, left XR WRIST LT MIN 3V Routine 05/12/2024 9: 29 AM HYDROGENATION STILL OPERATOR Left wrist pain from Last 3 Months Results * CT WRIST LT WO CON (05/22/2024 2:50 PM HYDROGENATION STILL OPERATOR) Anatomical Region Laterality Modality Wrist Computed Tomogra phy 05/26/2024 10:4 0 AM HYDROGENATION STILL OPERATOR Impressions 05/26/2024 10:42 AM HYDROGENATION STILL OPERATOR IMPRESSION: 1) No evidence of acute fracture is demonstrated. Chronic changes of degenerative osteoarthritis. Ordered By: BLANCO SOLIS Interpreted By: aXvier Reis MD, 05/26/2024 10:40 AM Narrative 05/26/2024 10:42 AM HYDROGENATION STILL OPERATOR [address] [place] [address] Examination: CT WRIST LT WO CON Exam time: 05/22/2024 2:47 PM Clinical history: Trauma several weeks ago, evaluate for possible distal left radius fracture. Previous trapezium resection. Comparison: Radiographs 05/12/2024 Technique: Axial images obtained through the left wrist without contrast using low-dose CT technique. Sagittal and coronal reconstruction. Findings: There is no significant acute soft tissue abnormality. There is no definite evidence of acute distal left radius fracture. No evidence of distal ulna fracture. There are chronic changes of degenerative osteoarthritis involving the distal radioulnar joint and the radiocarpal joint. Small degenerative subchondral cysts in the distal radius. There is been previous resection of the trapezium. There is no evidence of acute fracture or focal lytic bone destructive lesion involving the carpal bones. Chronic degenerative changes at the base of the thumb Procedure Note Xavier Reis MD - 05/26/[address] [place] [address] Examination: CT WRIST LT WO CON Exam time: 05/22/2024 2:47 PM Clinical history: Trauma several weeks ago, evaluate for possible distalleft radius fracture. Previous trapezium resection. Comparison: Radiographs 05/12/2024 Technique: Axial images obtained through the left wrist without contrastusing low-dose CT technique. Sagittal and coronal reconstruction. Findings: There is no significant acute soft tissue abnormality. There isno definite evidence of acute distal left radius fracture. No evidence ofdistal ulna fracture. There are chronic changes of degenerativeosteoarthritis involving the distal radioulnar joint and the radiocarpaljoint. Small degenerative subchondral cysts in the distal radius. There is been previous resection of the trapezium. There is no evidence ofacute fracture or focal lytic bone destructive lesion involving the carpalbones. Chronic degenerative changes at the base of the thumb IMPRESSION: 1) No evidence of acute fracture is demonstrated. Chronic changes ofdegenerative osteoarthritis. Ordered By: BLANCO SOLIS Interpreted By: aXvier Reis MD, 05/26/2024 10:40 AM Blanco Solis FRUIT OR NUT CROPS FARM MANAGER-BC CT Final Resu lt * CT HEAD WO CON (05/12/2024 11:04 AM HYDROGENATION STILL OPERATOR) Anatomical Region Laterality Modality Head Computed Tomogra phy 05/12/2024 11:2 0 AM HYDROGENATION STILL OPERATOR Impressions 05/12/2024 11:24 AM HYDROGENATION STILL OPERATOR IMPRESSION: 1. No acute intracranial process identified. 2. Mild small vessel disease. 3. Small left frontal scalp hematoma. Ordered By: BLANCO SOLIS Interpreted By: Abimael Shannon MD, 05/12/2024 11:20 AM Narrative 05/12/2024 11:24 AM HYDROGENATION STILL OPERATOR [address] [place] [address] Examination: CT of the head without contrast. [...] Procedure Note Abimael Shannon MD - 05/12/2024 [place] [id number] [facility] [place] [address] Examination: CT of the head without contrast. [...] MD, 05/12/2024 11:20 AM us Blanco Solis FRUIT OR NUT CROPS FARM MANAGER-BC CT Final Resu lt * XR PELVIS+LT HIP 2V (05/12/2024 10:13 AM HYDROGENATION STILL OPERATOR) Anatomical Region Laterality Modality Hip, Pelvis Radiographic Chanel ging 05/12/2024 1:31 PM HYDROGENATION STILL OPERATOR Impressions 05/12/2024 1:35 PM HYDROGENATION STILL OPERATOR IMPRESSION: 1) No significant acute radiographic abnormality. Ordered By: BLANCO SOLIS Interpreted By: Xavier Reis MD, 05/12/2024 1:31 PM Narrative 05/12/2024 1:35 PM HYDROGENATION STILL OPERATOR [address] [place] [address] Examination: XR PELVIS+LT HIP 2V Exam time: [...] Procedure Note Xavier Reis MD - 05/12/[address] [place] [address] Examination: XR PELVIS+LT HIP 2V Exam time: [...] By: Xavier Reis MD, 05/12/2024 1:31 PM us Blanco Solis FRUIT OR NUT CROPS FARM MANAGER-BC GENERAL IMAGING Final Resu lt * XR WRIST LT MIN 3V (05/12/2024 9:29 AM HYDROGENATION STILL OPERATOR) Anatomical Region Laterality Modality Wrist Radiographic Chanel ging 05/13/2024 8:25 AM HYDROGENATION STILL OPERATOR Impressions 05/13/2024 8:28 AM HYDROGENATION STILL OPERATOR IMPRESSION: No acute findings. See text. Ordered By: BLANCO SOLIS Interpreted By: Abimael Shannon MD, 05/13/2024 8:25 AM Narrative 05/13/2024 8:28 AM HYDROGENATION STILL OPERATOR [address] [place] [address] Examination: Left wrist. Exam time: 0826 hours. [...] Procedure Note Abimael Shannon MD - 05/13/[address] [place] [address] Examination: Left wrist. Exam time: 0826 hours. [...] By: Abimael Shannon MD, 05/13/2024 8:25 AM us Blanco Solis FRUIT OR NUT CROPS FARM MANAGER-BC GENERAL IMAGING Final Resu lt from Last 3 Months Insurance [employer] MEDICAID Advance Directives * Full Code (Latest Code Status on File) Date Activated Date Inactivated Comments 06/21/2023 11:17 AM 06/22/2023 5:02 PM * Full Code Date Activated Date Inactivated Comments 02/26/2023 1:09 PM 02/27/2023 4:49 PM Care Teams Heat Plant Specialist Relationship Specialty Start Date End Date Asif Coto DO [address] [place] [address] PCP - General FAMILY PRACTICE 09/29/21
--- OUTSIDE RECORDS SUMMARY | 2024-07-01 14:07 | XMS_ITS | Clinical Summary ---
Author Organization [facility] Address [address] [place] [address] Phone Care Team Providers Care Transmission Technician Name Role Phone John Almazan MD Primary Care Provider [phone] Social History Tobacco Use Types Packs/Day Years [...] Insurance [employer] MED[employer] C [employer] Care Teams Transmission Technician Relationship Specialty Start Date End Date John Almazan MD [address] [place] [address] PCP - General Family Medicine 04/30/19
--- OUTSIDE RECORDS SUMMARY | 2024-07-01 14:07 | XMS_ITS | Encounter Summary ---
Author Organization [facility] Address [facility] [address] [place] [address] Care Team Providers Care Ice Cream Freezer Name Role Phone Asif Coot DO Primary Care Provider [phone] Encounter Details Date Type Department Care Team (Late st Contact Info) Description 04/29/2024 [employer] Message Enc [facility] [place] [address] Sujatha Solis, [facility] [address] [facility] [address] Visit Follow Up Social History Tobacco Use Types Packs/Day Years Used Date Smoking Tobacco: Former Cigarettes Smokeless Tobacco: Never Alcohol Use Standard Drinks/Week Comments Not Currently 0 (1 standard drink = 0.6 oz pur e alcohol) Occassionaly. [facility] Utilities Answer Date Recorded In the past 12 months has [facility] [employer], [employer], oil, or water [employer] threatened to shut off services in your [...] How often do you attend scientologist or buddhism serv ices? Patient declined 02/26/2023 [...] Score 0 02/26/2023 [facility] - Occupational [...] Sexual Orientation Straight 02/26/2023 1: 40 PM RAIL ENGINEER documented as of this encounter Functional [...] on filedocumented in this encounter Care Teams Ice Cream Freezer Relationship Specialty Start Date End Date Asif oCto DO [facility] [place] [address] PCP - General FAMILY PRACTICE 09/29/21 documented as of this encounter
--- NOTE | 2024-07-01 14:08 | PC.NURSE ---
PT IS SITTING ON STRETCHER AWAITING ERP EXAM AT THIS TIME. ERP IS AWARE. WILL CONTINUE TO MONITOR.
--- OUTSIDE RECORDS SUMMARY | 2024-07-01 14:38 | XMS_ITS | Clinical Summary ---
Author Organization [facility] Address [address] [place] [address] Care Team Providers Care Secretary Specialist Name Role Phone Asif Coto DO Primary Care Provider [phone] Allergies Active Allergy Reactions Criticality Noted Date [...] greater trochanter of femur, left, initial encounter ([facility]) 05/12/2024 Primary osteoarthritis of left knee [...] (01/31/2023): Added automatically from request for surgery [id number] Encounters Date Type Department Care Team Description 07/01/2024 [place] [address] Candida Padron PA Appointment Request (LEFT shoulder) 06/10/[address] [address] Blanco Solis FNP-BC Medication Request 05/26/[address] [address] Blanco Solis FNP-GARY CT Results 05/22/2024 2:30 PM GRAPHIC MANAGER - 05/22/2024 11:59 PM GRAPHIC MANAGER Hospital Encounter [facility] [address] [place] [address] Blanco Solis FNP-BC Discharge Disposition: Home or Self Care (Routine Discharge) 05/22/2024 Travel 05/22/[address] [address] Candida Padron PA Question 05/21/[address] [address] Blanco Solis FNP-GARY CT (SCAN) 05/13/[address] [address] Blanco Solis FNP-GARY Question ([employer] Question) 05/12/2024 10:46 AM GRAPHIC MANAGER - 05/12/2024 11:59 PM GRAPHIC MANAGER Hospital Encounter [facility] [address] [place] [address] Blanco Solis FNP-BC Discharge Disposition: Home or Self Care (Routine Discharge) 05/12/2024 9:30 AM GRAPHIC MANAGER Office Visit [address] [address] Blanco Solis FNPKRZYSZTOF Wrist Pain (DOI:05/08/2024-LEF T ) 05/12/2024 9:21 AM GRAPHIC MANAGER - 05/12/2024 10:45 AM GRAPHIC MANAGER Hospital Encounter [facility] [address] [place] [address] Blanco Solis FNP-BC Discharge Disposition: Home or Self Care (Routine Discharge) 05/12/[address] [address] Blanco Solis FNP-BC Results (CT scan results) 05/12/2024 Travel 05/09/2024 Orders Only [address] [address] Blanco Solis FNP-BC 05/09/[address] [address] Blanco Solis FNP-BC Appointment Request 04/29/2024 1:45 PM GRAPHIC MANAGER Office Visit [address] [address] Blanco Solis FNP-BC Knee Pain (LEFT) 04/29/2024 MyChart Message Enc [address] [address] Blanco Solis FNP-BC Visit Follow Up 04/29/2024 [...] alcohol) Occassionaly. [facility] Utilities Answer Date Recorded In the past 12 months has e [employer], gas, oil, or water [employer] threatened to shut off services in your [...] Recorded Patient Health Questionnaire-2 Score 0 02/26/2023 [facility] - Occupational Stress Questionnaire [...] Sexual Orientation Straight 02/26/2023 1: 40 PM GRAPHIC MANAGER Last Filed Vital Signs Vital Sign Reading Time Taken Comments Blood Pressure 122/66 11/05/2023 11:23 AM CDT Pulse 79 11/05/2023 11:23 AM CDT Temperature 35.8 C (96.4 F) 06/30/2023 2:37 PM CDT Respiratory Rate 21 06/30/2023 2:37 PM CDT Oxygen Saturation 97% 12/10/2023 2:29 PM CDT Inhaled Oxygen Concentration - - Weight 67.6 kg (149 lb) 05/12/2024 9:23 AM GRAPHIC MANAGER Height 165.1 cm (5' 5 ) 05/12/2024 9:23 AM GRAPHIC MANAGER Body Mass Index 24.79 05/12/2024 9:23 AM GRAPHIC MANAGER Plan of Treatment Health Maintenance Due Date [...] this topic Medical Devices Implanted Type Area Scaffolder Device Identifier Shelf Expiration Date Model / Serial / Lot Head Depuy Femoral Articuleze 28mm +1.5 - [id number] Implanted:Qty : 1 on 02/26/2023 by Roldan Rader MD at [facility] Hip Components Right: Hip DEPUY [id number] 06/14/2027 [id number] / / [id number] Stem Hip Depuy Tapered 155mm - [id number] Implanted:Qty : 1 on 06/21/2023 by Roldan Rader MD at [facility] Hip Components Left: Hip DEPUY [id number] 10/13/2032 [id number] / / [id number] Stimulator Lead Implant-2018 Implanted: (Quantity not on file) Lead Implant Back [employer] [id number] / [id number] / Stimulator Lead Implant-2018 Implanted: (Quantity not on file) Lead Implant Back [employer] [id number] / [id number] / Pain Pump- Implanted:Qty : 1 on 12/07/2021 Pump Abdomen [employer] [id number] / [id number] / Description:ME CONDITIONAL A T 1.5 T OR 3 T, NEED IMAGING TO CHECK PUMP POSITION PRIOR TO MRI(MRI TECHNICAL MANUAL PAGE 12), PUMP NEEDS TO BE CHECKED BY [employer] REP AFTER SCAN Stimulator Implant-2018 Implanted:Qty : 1 on 06/12/2018 Stimulator Implant Back [employer] [id number] / [id number] / Description:MR CONDITIONAL A T 1.5 T ONLY, NEED REMOTE TO TURN OFF STIMULATION AND CHECK FULL BODY ELIGIBLE, NORMAL SCAN MODE , MAX TOTAL SCAN TIME OF 30 MIN IN 90 MIN WINDOW, CHECK MOST RECENT MRI MANUAL FOR SCAN CONDITIONS [place] [employer] Acetabular Shell Sector 11 Implanted:Qty : 1 on 02/26/2023 by Roldan Rader MD at [facility] Right: Hip DEPUY 11/13/2032 [id number] / / [id number] [place] Cancellous Bone Screw Implanted:Qty : 1 on 02/26/2023 by Roldan Rader MD at [facility] Right: Hip DEPUY 08/13/2032 [id number] / / [id number] [place] [employer] Dual Mobility Liner Implanted:Qty : 1 on 02/26/2023 by Roldan Rader MD at [facility] Right: Hip DEPUY 10/13/2032 [id number] / / [id number] Bimentum Altrx Liner Implanted:Qty : 1 on 02/26/2023 by Roldan Rader MD at [facility] Right: Hip DEPUY 01/13/2027 [id number] / / [id number] [place] Femoral Stem 03/29 Tapered W/ Porcoat Implanted:Qty : 1 on 02/26/2023 by Roldan Rader MD at [facility] Right: Hip DEPUY 02/14/2032 [id number] / / [id number] [place] Cancellous Bone Screw Implanted:Qty : 1 on 06/21/2023 by Roldan Rader MD at [facility] Left: Hip DEPUY [employer] - A OSMIN & OSMIN 12/14/2032 0 / / [id number] M=Spec Metal Femoral Head Implanted:Qty : 1 on 06/21/2023 by Roldan Rader MD at [facility] Left: Hip DEPUY [employer] - A OSMIN & OSMIN 10/13/2026 0 / / [id number] Bi-Mentum Altrax Liner Implanted:Qty : 1 on 06/21/2023 by Roldan Rader MD at [facility] Left: Hip DEPUY [employer] - A OSMIN & OSMIN 11/13/2026 [id number] / / [id number] [place] [employer] Dual Mobility Liner Implanted:Qty : 1 on 06/21/2023 by Roldan Rader MD at [facility] Left: Hip DEPUY [employer] - A OSMIN & OSMIN [id number] 03/15/2033 7 / / [id number] [place] Porocoat Acetabular Shell Sector Ii Implanted:Qty : 1 on 06/21/2023 by Roldan Rdaer MD at [facility] Left: Hip DEPUY [employer] - A OSMIN & OSMIN 11/13/2032 4 / / [id number] Explanted Type Area Scaffolder Device Identifier Shelf Expiration Date Model / Serial / Lot Drill Bit Explanted:Qty: 1 on 02/26/2023 by Roldan Rader MD at [facility] Right: Hip [id number] / / Drill Bit Explanted:Qty: 1 on 06/21/2023 by Roldan Rader MD at [facility] Left: Hip [id number] / / Procedures Procedure Name Priority Date/Time Associated Diagnosis Comments CT WRIST LT WO CON Routine 05/22/2024 2: 50 PM GRAPHIC MANAGER Fall, initial encounter Other closed fracture of distal end of left radius, initial encounter CT HEAD WO CON STAT 05/12/2024 11:04 AM GRAPHIC MANAGER Fall, initial encounter Traumatic injury of head, initial encounter XR PELVIS+LT HIP 2V Routine 05/12/2024 1 0:13 AM GRAPHIC MANAGER History of total hip arthroplasty, left XR WRIST LT MIN 3V Routine 05/12/2024 9: 29 AM GRAPHIC MANAGER Left wrist pain from Last 3 Months Results * CT WRIST LT WO CON (05/22/2024 2:50 PM GRAPHIC MANAGER) Anatomical Region Laterality Modality Wrist Computed Tomogra phy 05/26/2024 10:4 0 AM GRAPHIC MANAGER Impressions 05/26/2024 10:42 AM GRAPHIC MANAGER IMPRESSION: 1) No evidence of acute fracture is demonstrated. Chronic changes of degenerative osteoarthritis. Ordered By: BLANCO SOLIS Interpreted By: Xavier Reis MD, 05/26/2024 10:40 AM Narrative 05/26/2024 10:42 AM GRAPHIC MANAGER [address] [place] [address] Examination: CT WRIST LT WO CON Exam [...] Procedure Note Xavier Reis MD - 05/26/[address] [place] [address] Examination: CT WRIST LT WO CON Exam [...] osteoarthritis. Ordered By: BLANCO SOLIS Interpreted By: Xavier Reis MD, 05/26/2024 10:40 AM Blanco Solis AFRICAN HISTORY PROFESSOR-BC CT Final Resu lt * CT HEAD WO CON (05/12/2024 11:04 AM GRAPHIC MANAGER) Anatomical Region Laterality Modality Head Computed Tomogra phy 05/12/2024 11:2 0 AM GRAPHIC MANAGER Impressions 05/12/2024 11:24 AM GRAPHIC MANAGER IMPRESSION: 1. No acute intracranial process identified. 2. Mild small vessel disease. 3. Small left frontal scalp hematoma. Ordered By: BLANCO SOLIS Interpreted By: Abimael Shannon MD, 05/12/2024 11:20 AM Narrative 05/12/2024 11:24 AM GRAPHIC MANAGER [address] [place] [address] Examination: CT of the head without contrast. [...] Procedure Note Abimael Shannon MD - 05/12/2024 [place] [id number] [facility] [place] [address] Examination: CT of the head without contrast. [...] MD, 05/12/2024 11:20 AM us Blanco Solis AFRICAN HISTORY PROFESSOR-BC CT Final Resu lt * XR PELVIS+LT HIP 2V (05/12/2024 10:13 AM GRAPHIC MANAGER) Anatomical Region Laterality Modality Hip, Pelvis Radiographic Chanel ging 05/12/2024 1:31 PM GRAPHIC MANAGER Impressions 05/12/2024 1:35 PM GRAPHIC MANAGER IMPRESSION: 1) No significant acute radiographic abnormality. Ordered By: BLANCO SOLIS Interpreted By: Xavier Reis MD, 05/12/2024 1:31 PM Narrative 05/12/2024 1:35 PM GRAPHIC MANAGER [address] [place] [address] Examination: XR PELVIS+LT HIP 2V Exam time: [...] Procedure Note Xavier Reis MD - 05/12/[address] [place] [address] Examination: XR PELVIS+LT HIP 2V Exam time: [...] MD, 05/12/2024 1:31 PM us Blanco Solis AFRICAN HISTORY PROFESSOR-BC GENERAL IMAGING Final Resu lt * XR WRIST LT MIN 3V (05/12/2024 9:29 AM GRAPHIC MANAGER) Anatomical Region Laterality Modality Wrist Radiographic Chanel ging 05/13/2024 8:25 AM GRAPHIC MANAGER Impressions 05/13/2024 8:28 AM GRAPHIC MANAGER IMPRESSION: No acute findings. See text. Ordered By: BLANCO SOLIS Interpreted By: Abimael Shannon MD, 05/13/2024 8:25 AM Narrative 05/13/2024 8:28 AM GRAPHIC MANAGER [address] [place] [address] Examination: Left wrist. Exam time: 0826 hours. [...] Procedure Note Abimael Shannon MD - 05/13/[address] [place] [address] Examination: Left wrist. Exam time: 0826 hours. [...] MD, 05/13/2024 8:25 AM us Blanco Solis AFRICAN HISTORY PROFESSOR-BC GENERAL IMAGING Final Resu lt from Last 3 Months Insurance [employer] MEDICAID Advance Directives * Full Code (Latest Code Status on File) Date Activated Date Inactivated Comments 06/21/2023 11:17 AM 06/22/2023 5:02 PM * Full Code Date Activated Date Inactivated Comments 02/26/2023 1:09 PM 02/27/2023 4:49 PM Care Teams Secretary Specialist Relationship Specialty Start Date End Date Asif Coto DO [address] [place] [address] PCP - General FAMILY PRACTICE 09/29/21
--- OUTSIDE RECORDS SUMMARY | 2024-07-01 14:38 | XMS_ITS | Encounter Summary ---
Author Organization [facility] Address [facility] [place] [address] Care Team Providers Care Yardage Control Clerk Name Role Phone Asif Coto DO Primary Care Provider [phone] Encounter Details Date Type Department Care Team (Late st Contact Info) Description 04/29/2024 Anthill Message Enc [facility] [place] [address] Sujatha Solis, [facility] [address] [place] [address] Visit Follow Up Social History Tobacco Use Types Packs/Day Years Used Date Smoking Tobacco: Former Cigarettes Smokeless Tobacco: Never Alcohol Use Standard Drinks/Week Comments Not Currently 0 (1 standard drink = 0.6 oz pur e alcohol) Occassionaly. [facility] Utilities Answer Date Recorded In the past 12 months has [facility] [employer], [employer], oil, or water [employer] threatened to shut off services in your [...] How often do you attend lutheran or pentecostalism serv ices? Patient declined 02/26/2023 Do you [...] Sexual Orientation Straight 02/26/2023 1: 40 PM BREAD ROOM HAND documented as of this encounter Functional [...] on filedocumented in this encounter Care Teams Yardage Control Clerk Relationship Specialty Start Date End Date Asif Coto DO [facility] [place] [address] PCP - General FAMILY PRACTICE 09/29/21 documented as of this encounter
--- OUTSIDE RECORDS SUMMARY | 2024-07-01 14:38 | XMS_ITS | Clinical Summary ---
Author Organization [facility] Address [address] [place] [address] Phone Care Team Providers Care Personnel Security Specialist Name Role Phone John Almazan MD Primary Care Provider [phone] Social History Tobacco Use Types Packs/Day Years [...] Insurance [employer] MEDICARE C [employer] Care Teams Personnel Security Specialist Relationship Specialty Start Date End Date John Almazan MD [address] [place] [address] PCP - General Family Medicine 04/30/19
--- OUTSIDE RECORDS SUMMARY | 2024-07-01 14:38 | XMS_ITS | Encounter Summary ---
Author Organization [facility] Address [address] [place] [address] Care Team Providers Care French Folder Name Role Phone Asif Coto DO Primary Care Provider [phone] Reason for Visit * Reason Onset Date Comments Appointment Request 07/01/2024 LEFT jackie vora Encounter Details Date Type Department Care Team (Late st Contact Info) Description 07/01/2024 Telephone [facility] [address] [facility] [address] [place] [address] Candida Padron PA [address] [place] [address] Appointment Request (LEFT shoulder) Social History Tobacco Use Types Packs/Day Years Used Date Smoking Tobacco: Former Cigarettes Smokeless Tobacco: Never Alcohol Use Standard Drinks/Week Comments Not Currently 0 (1 standard drink = 0.6 oz pur e alcohol) Occassionaly. [facility] Utilities Answer Date Recorded In the past 12 months has e [employer], gas, oil, or water [employer] threatened to shut off services in your [...] declined 02/26/2023 How often do you attend amish or faith serv ices? Patient declined 02/26/2023 Do you belong to any clubs o r organizations such as amish groups, unions, fraternal or athletic groups, or [...] Recorded Patient Health Questionnaire-2 Score 0 02/26/2023 [facility] - Occupational [...] Sexual Orientation Straight 02/26/2023 1: 40 PM ACCREDITED FARM MANAGER documented as of this encounter Functional [...] [facility] She denies pop but had immediate pain. [...] on filedocumented in this encounter Care Teams French Folder Relationship Specialty Start Date End Date Asif Coto DO [address] [place] [address] PCP - General FAMILY PRACTICE 09/29/21 documented as of this encounter
[2024-07-01 15:22] VITALS: BP 140/78; PULSE 78; RESP 18; O2SAT 98
== END 2024-07-01 15:22 | disposition home or self-care (01) ==
PROVIDERS: Emergency Provider Emergency Medicine; PCP Family Medicine
DX: M25.512 Pain in left shoulder (principal); X50.0XXA Overexertion from strenuous movement or load, initial encounter; G89.29 Other chronic pain; M54.9 Dorsalgia, unspecified; I10 Essential (primary) hypertension; E11.9 Type 2 diabetes mellitus without complications; E03.9 Hypothyroidism, unspecified; F41.8 Other specified anxiety disorders; Z87.891 Personal history of nicotine dependence
CPT/HCPCS: 73030; 99283

== ENCOUNTER 2024-07-26 10:38 | Outpatient (CLI) | payer MEDICARE, MEDICAID, SELFPAY ==
--- OUTSIDE RECORDS SUMMARY | 2024-07-26 10:42 | XMS_ITS | Clinical Summary ---
Author Organization [facility] Address [address] [place] [address] Care Team Providers Care Radio Disc Jockey Name Role Phone Asif Coto DO Primary Care Provider [phone] Allergies Active Allergy Reactions Criticality Noted Date [...] greater trochanter of femur, left, initial encounter ([facility]) 05/12/2024 Primary osteoarthritis of left knee 04/29/2024 [...] (01/31/2023): Added automatically from request for surgery [id number] Encounters Date Type Department Care Team Description 07/01/2024 [place] [address] Candida Padron PA Appointment Request (LEFT shoulder) 06/10/[address] [address] Blanco Solis FNP-BC Medication Request 05/26/[address] [address] Blanco Solis FNP-GARY CT Results 05/22/2024 2:30 PM MOUNTING MACHINE OPERATOR - 05/22/2024 11:59 PM MOUNTING MACHINE OPERATOR Hospital Encounter [facility] [address] [place] [address] Blanco Solis FNP-BC Discharge Disposition: Home or Self Care (Routine Discharge) 05/22/2024 Travel 05/22/[address] [address] Candida Padron PA Question 05/21/[address] [address] Blanco Solis FNP-GARY CT (SCAN) 05/13/[address] [address] Blanco Solis FNP-GARY Question ([employer] Question) 05/12/2024 10:46 AM MOUNTING MACHINE OPERATOR - 05/12/2024 11:59 PM MOUNTING MACHINE OPERATOR Hospital Encounter [facility] [address] [place] [address] Blanco Solis FNP-BC Discharge Disposition: Home or Self Care (Routine Discharge) 05/12/2024 9:30 AM MOUNTING MACHINE OPERATOR Office Visit [address] [address] Blanco Solis FNPKRZYSZTOF Wrist Pain (DOI:05/08/2024-LEF T ) 05/12/2024 9:21 AM MOUNTING MACHINE OPERATOR - 05/12/2024 10:45 AM MOUNTING MACHINE OPERATOR Hospital Encounter [facility] [address] [place] [address] Blanco Solis FNP-BC Discharge Disposition: Home or Self Care (Routine Discharge) 05/12/[address] [address] Blanco Solis FNP-BC Results (CT scan results) 05/12/2024 Travel 05/09/2024 Orders Only [address] [address] Blanco Solis FNP-BC 05/09/[address] [address] Blanco Solis FNP-BC Appointment Request 04/29/2024 1:45 PM MOUNTING MACHINE OPERATOR Office Visit [address] [address] Blanco Solis FNP-BC Knee Pain (LEFT) 04/29/2024 MyChart Message Enc [address] [address] Blanco Solis FNP-BC Visit Follow Up 04/29/2024 [...] 0.6 oz pur e alcohol) Occassionaly. [facility] Utilities Answer Date Recorded In the past 12 months has e [employer], gas, oil, or water [employer] threatened to shut off services in your [...] How often do you attend taoist or samaritan serv ices? Patient declined 02/26/2023 Do you [...] Patient Health Questionnaire-2 Score 0 02/26/2023 [facility] - Occupational Stress Questionnaire [...] Sexual Orientation Straight 02/26/2023 1: 40 PM MOUNTING MACHINE OPERATOR Last Filed Vital Signs Vital Sign Reading Time Taken Comments Blood Pressure 122/66 11/05/2023 11:23 AM CDT Pulse 79 11/05/2023 11:23 AM CDT Temperature 35.8 C (96.4 F) 06/30/2023 2:37 PM CDT Respiratory Rate 21 06/30/2023 2:37 PM CDT Oxygen Saturation 97% 12/10/2023 2:29 PM CDT Inhaled Oxygen Concentration - - Weight 67.6 kg (149 lb) 05/12/2024 9:23 AM MOUNTING MACHINE OPERATOR Height 165.1 cm (5' 5 ) 05/12/2024 9:23 AM MOUNTING MACHINE OPERATOR Body Mass Index 24.79 05/12/2024 9:23 AM MOUNTING MACHINE OPERATOR Plan of Treatment Health Maintenance Due Date Last Done Comments Colorectal Cancer Screening Colonoscopy (10 Years) 1954 Hepatitis C 1972 DTaP, Tdap and Td Vaccines ( 1 - Tdap) 1973 Mammogram Screening 1994 Zoster Vaccines (2 of 3) 06/26/2016 05/01/2016 Annual Medicare Wellness Visit 11/19/2019 Dexa Scan (General) 11/19/2019 Pneumococcal Vaccine: 65+ Years (2 of 2 - PPSV23 or PCV20) 12/23/2021 12/23/2020 COVID-19 Vaccine (4 - 2023-2 5 season) 2023 03/03/2021, 06/09/2020, 05/19/2020 RSV Immunization or 60+ Years (1 - 1-dose 75+ series) 2029 Meningococcal B Vaccine Aged Out No l onger eligible based on patient's age to complete this topic Meningococcal Vaccine Aged Out No flaquito greta eligible based on patient's age to complete this topic RSV Immunizations Under 20 Months Aged Out No longer eligible b ased on patient's age to complete this topic Medical Devices Implanted Type Area Senior Portfolio Manager Device Identifier Shelf Expiration Date Model / Serial / Lot Head Depuy Femoral Articuleze 28mm +1.5 - [id number] Implanted:Qty : 1 on 02/26/2023 by Roldan Rader MD at [facility] Hip Components Right: Hip DEPUY [id number] 06/14/2027 [id number] / / [id number] Stem Hip Depuy Tapered 155mm - [id number] Implanted:Qty : 1 on 06/21/2023 by Roldan Rader MD at [facility] Hip Components Left: Hip DEPUY [id number] 10/13/2032 [id number] / / [id number] Stimulator Lead Implant-2018 Implanted: (Quantity not on file) Lead Implant Back [employer] [id number] / [id number] / Stimulator Lead Implant-2018 Implanted: (Quantity not on file) Lead Implant Back [employer] [id number] / [id number] / Pain Pump- 2 Implanted:Qty : 1 on 12/07/2021 Pump Abdomen [employer] [id number] / [id number] / Description:ME CONDITIONAL A T 1.5 T OR 3 T, NEED IMAGING TO CHECK PUMP POSITION PRIOR TO MRI(MRI TECHNICAL MANUAL PAGE 12), PUMP NEEDS TO BE CHECKED BY [employer] REP AFTER SCAN Stimulator Implant-2018 Implanted:Qty : 1 on 06/12/2018 Stimulator Implant Back [employer] [id number] / [id number] / Description:MR CONDITIONAL A T 1.5 T ONLY, NEED REMOTE TO TURN OFF STIMULATION AND CHECK FULL BODY ELIGIBLE, NORMAL SCAN MODE , MAX TOTAL SCAN TIME OF 30 MIN IN 90 MIN WINDOW, CHECK MOST RECENT MRI MANUAL FOR SCAN CONDITIONS [place] [employer] Acetabular Shell Sector 11 Implanted:Qty : 1 on 02/26/2023 by Roldan Rader MD at [facility] Right: Hip DEPUY 11/13/2032 [id number] / / [id number] [place] Cancellous Bone Screw Implanted:Qty : 1 on 02/26/2023 by Roldan Rader MD at [facility] Right: Hip DEPUY 08/13/2032 [id number] / / [id number] [place] [employer] Dual Mobility Liner Implanted:Qty : 1 on 02/26/2023 by Roldan Rader MD at [facility] Right: Hip DEPUY 10/13/2032 [id number] / / [id number] Bimentum Altrx Liner Implanted:Qty : 1 on 02/26/2023 by Roldan Rader MD at [facility] Right: Hip DEPUY 01/13/2027 [id number] / / [id number] [place] Femoral Stem 03/29 Tapered W/ Porcoat Implanted:Qty : 1 on 02/26/2023 by Roldan Rader MD at [facility] Right: Hip DEPUY 02/14/2032 [id number] / / [id number] [place] Cancellous Bone Screw Implanted:Qty : 1 on 06/21/2023 by Roldan Rader MD at [facility] Left: Hip [employer]PUY [employer] - A OSMIN & OSMIN 12/14/2032 0 / / [id number] M=Spec Metal Femoral Head Implanted:Qty : 1 on 06/21/2023 by Roldan Rader MD at [facility] Left: Hip [employer]PU[employer] - A OSMIN & OSMIN 10/13/2026 0 / / [id number] Bi-Mentum Altrax Liner Implanted:Qty : 1 on 06/21/2023 by Roldan Rader MD at [facility] Left: Hip [employer] - A OSMIN & OSMIN 11/13/2026 [id number] / / [id number] [place] [employer] Dual Mobility Liner Implanted:Qty : 1 on 06/21/2023 by Roldan Rader MD at [facility] Left: Hip [employer]PU[employer] - A OSMIN & OSMIN [id number] 03/15/2033 7 / / [id number] [place] Porocoat Acetabular Shell Sector Ii Implanted:Qty : 1 on 06/21/2023 by Roldan Rader MD at [facility] Left: Hip [employer] - A OSMIN & OSMIN 11/13/2032 4 / / [id number] Explanted Type Area Senior Portfolio Manager Device Identifier Shelf Expiration Date Model / Serial / Lot Drill Bit Explanted:Qty: 1 on 02/26/2023 by Roldan Rader MD at [facility] Right: Hip [id number] / / Drill Bit Explanted:Qty: 1 on 06/21/2023 by Roldan Rader MD at [facility] Left: Hip [id number] / / Procedures Procedure Name Priority Date/Time Associated Diagnosis Comments CT WRIST LT WO CON Routine 05/22/2024 2: 50 PM MOUNTING MACHINE OPERATOR Fall, initial encounter Other closed fracture of distal end of left radius, initial encounter CT HEAD WO CON STAT 05/12/2024 11:04 AM MOUNTING MACHINE OPERATOR Fall, initial encounter Traumatic injury of head, initial encounter XR PELVIS+LT HIP 2V Routine 05/12/2024 1 0:13 AM MOUNTING MACHINE OPERATOR History of total hip arthroplasty, left XR WRIST LT MIN 3V Routine 05/12/2024 9: 29 AM MOUNTING MACHINE OPERATOR Left wrist pain from Last 3 Months Results * CT WRIST LT WO CON (05/22/2024 2:50 PM MOUNTING MACHINE OPERATOR) Anatomical Region Laterality Modality Wrist Computed Tomogra phy 05/26/2024 10:4 0 AM MOUNTING MACHINE OPERATOR Impressions 05/26/2024 10:42 AM MOUNTING MACHINE OPERATOR IMPRESSION: 1) No evidence of acute fracture is demonstrated. Chronic changes of degenerative osteoarthritis. Ordered By: BLANCO SOLIS Interpreted By: Xavier Reis MD, 05/26/2024 10:40 AM Narrative 05/26/2024 10:42 AM MOUNTING MACHINE OPERATOR [address] [place] [address] Examination: CT WRIST LT WO CON Exam [...] Procedure Note Xavier Reis MD - 05/26/[address] [place] [address] Examination: CT WRIST LT WO CON Exam [...] By: Xavier Reis MD, 05/26/2024 10:40 AM us Blanco Solis SOIL SCIENTIST-BC CT Final Resu lt * CT HEAD WO CON (05/12/2024 11:04 AM MOUNTING MACHINE OPERATOR) Anatomical Region Laterality Modality Head Computed Tomogra phy 05/12/2024 11:2 0 AM MOUNTING MACHINE OPERATOR Impressions 05/12/2024 11:24 AM MOUNTING MACHINE OPERATOR IMPRESSION: 1. No acute intracranial process identified. 2. Mild small vessel disease. 3. Small left frontal scalp hematoma. Ordered By: BLACNO SOLIS Interpreted By: Abimael Shannon MD, 05/12/2024 11:20 AM Narrative 05/12/2024 11:24 AM MOUNTING MACHINE OPERATOR [address] [place] [address] Examination: CT of the head without contrast. [...] Procedure Note Abimael Shannon MD - 05/12/2024 [place] [id number] [facility] [place] [address] Examination: CT of the head without contrast. [...] MD, 05/12/2024 11:20 AM us Blanco Solis SOIL SCIENTIST-BC CT Final Resu lt * XR PELVIS+LT HIP 2V (05/12/2024 10:13 AM MOUNTING MACHINE OPERATOR) Anatomical Region Laterality Modality Hip, Pelvis Radiographic Chanel ging 05/12/2024 1:31 PM MOUNTING MACHINE OPERATOR Impressions 05/12/2024 1:35 PM MOUNTING MACHINE OPERATOR IMPRESSION: 1) No significant acute radiographic abnormality. Ordered By: BLANCO SOLIS Interpreted By: Xavier Reis MD, 05/12/2024 1:31 PM Narrative 05/12/2024 1:35 PM MOUNTING MACHINE OPERATOR [address] [place] [address] Examination: XR PELVIS+LT HIP 2V Exam time: [...] Procedure Note Xavier Reis MD - 05/12/[address] [place] [address] Examination: XR PELVIS+LT HIP 2V Exam time: [...] Reis MD, 05/12/2024 1:31 PM Blanco Solis SOIL SCIENTIST-BC GENERAL IMAGING Final Resu lt * XR WRIST LT MIN 3V (05/12/2024 9:29 AM MOUNTING MACHINE OPERATOR) Anatomical Region Laterality Modality Wrist Radiographic Chanel ging 05/13/2024 8:25 AM MOUNTING MACHINE OPERATOR Impressions 05/13/2024 8:28 AM MOUNTING MACHINE OPERATOR IMPRESSION: No acute findings. See text. Ordered By: BLANCO SOLIS Interpreted By: Abimael Shannon MD, 05/13/2024 8:25 AM Narrative 05/13/2024 8:28 AM MOUNTING MACHINE OPERATOR [address] [place] [address] Examination: Left wrist. Exam time: 0826 hours. [...] Procedure Note Abimael Shannon MD - 05/13/[address] [place] [address] Examination: Left wrist. Exam time: 0826 hours. [...] MD, 05/13/2024 8:25 AM us Blanco Solis SOIL SCIENTIST-BC GENERAL IMAGING Final Resu lt from Last [address] [place] [address] [place] [address] [facility] MEDICAID Advance Directives * Full Code (Latest Code Status on File) Date Activated Date Inactivated Comments 06/21/2023 11:17 AM 06/22/2023 5:02 PM * Full Code Date Activated Date Inactivated Comments 02/26/2023 1:09 PM 02/27/2023 4:49 PM Care Teams Radio Disc Jockey Relationship Specialty Start Date End Date Asif Coto DO [address] [place] [address] PCP - General FAMILY PRACTICE 09/29/21
--- OUTSIDE RECORDS SUMMARY | 2024-07-26 10:42 | XMS_ITS | Encounter Summary ---
Author Organization [facility] Address Formerly [facility], [facility] [place] [address] Care Team Providers Care Embossograph Operator Name Role Phone Asif Coto DO Primary Care Provider [phone] Encounter Details Date Type Department Care Team (Late st Contact Info) Description 04/29/2024 SepSensor Message Enc [place] [address] Sujatha Solis, [facility] [address] [place] [address] Visit Follow Up Social History Tobacco Use Types Packs/Day Years Used Date Smoking Tobacco: Former Cigarettes Smokeless Tobacco: Never Alcohol Use Standard Drinks/Week Comments Not Currently 0 (1 standard drink = 0.6 oz pur e alcohol) Occassionaly. [facility] Utilities Answer Date Recorded In the past 12 months has [facility] [employer], [employer], oil, or water [employer] threatened to shut off services in your [...] How often do you attend muslim or scientologist serv ices? Patient declined 02/26/2023 Do you [...] place to sleep or slept in a half-way (including now)? No 02/26/2023 Comments No Sex and Gender Information Value Date Recorded Sex Assigned at Female 08/07/2022 4:17 PM CDT Legal Sex Female 8:54 PM CDT Gender Identity Female 08/07/2022 4:17 PM CDT Sexual Orientation Straight 02/26/2023 1: 40 PM SWITCHBOARD WIRER documented as of this encounter Functional Status [...] on filedocumented in this encounter Care Teams Embossograph Operator Relationship Specialty Start Date End Date Asif Coto DO [facility] [place] [address] PCP - General FAMILY PRACTICE 09/29/21 documented as of this encounter
--- OUTSIDE RECORDS SUMMARY | 2024-07-26 10:42 | XMS_ITS | Clinical Summary ---
Author Organization [facility] Address [address] [place] [address] Phone Care Team Providers Care Recreational Therapy Aide Name Role Phone John Almazan MD Primary Care Provider [phone] Social History Tobacco Use Types Packs/Day Years Used Date Smoking Tobacco: Never Assessed Comments Unknown Sex and Gender Information Value Date Recorded Sex Assigned at Not on file Legal Sex Female 12:00 AM CDT Gender Identity Not on file Sexual Orientation Not on file Plan of Treatment Health Maintenance Due Date Last Done Comments Hepatitis C Virus (HCV) Screening 1955 TdaP Immunization 1955 Colonoscopy 11/19/1999 Colorectal Cancer Screening 11/19/1999 Cologuard 2004 Immunochemical Fecal Occult Blood 2004 Pneumococcal Immunization (50+ years) (1 of [...] patient's age to complete this topic Insurance [employer] MEDICARE C [employer] Care Teams Recreational Therapy Aide Relationship Specialty Start Date End Date John Almazan MD [address] [place] [address] PCP - General Family Medicine 04/30/19
== END 2024-07-26 10:39 | disposition home or self-care (01) ==
LOC: CHSIMG 10:40
PROVIDERS: PCP Family Medicine; Visit Provider Family Medicine
DX: M75.102 Unspecified rotator cuff tear or rupture of left shoulder, not specified as traumatic (principal)
CPT/HCPCS: 99199